=== PATIENT | female | born 1965 | race Caucasian/White ===

== ENCOUNTER → 2019-12-17 10:23 | Outpatient (BNV) | payer OTHER, SELFPAY | PROVIDERS: Visit Provider Internal Medicine Medical Oncology | DX: C34.92 Malignant neoplasm of unspecified part of left bronchus or lung (principal); R73.9 Hyperglycemia, unspecified | CPT/HCPCS: 99212; 99213; 99214 ==

== ENCOUNTER 2019-12-17 16:17 | Emergency (ER) | payer OTHER, SELFPAY ==
--- NOTE | 2019-12-17 | CT_ITS ---
EXAMINATION: CT HEAD WITHOUT CONTRAST CLINICAL INFORMATION: Headache. COMPARISON: CT head from 10/30/2019. TECHNIQUE: Contiguous axial imaging was performed from the skull base to vertex without intravenous administration of contrast. This CT examination was performed using dose optimization techniques as appropriate, variously including the following: *Automated exposure control. *Adjustment of mA and/or kV according to patient size (this includes techniques or standardized protocols for targeted exams where dose is matched to indication/reason for exam; i.e. extremities or head). *Use of iterative reconstruction technique. DLP: 610 mGy-cm FINDINGS: There is no evidence of acute intracranial hemorrhage or edematous territorial infarction. There is no abnormal attenuation within the brain parenchyma. Byers-white matter differentiation is preserved. The ventricles are normal in size and configuration. No evidence for obstructive hydrocephalus. No abnormal mass effect or midline shift. No extra-axial fluid collections. No acute soft tissue or osseous abnormalities. Mild mucosal thickening of the paranasal sinuses. The mastoid air cells and middle ear cavities remain well aerated. IMPRESSION: No evidence of acute intracranial hemorrhage or edematous territorial infarction.
[2019-12-17 16:25] VITALS: BP 111/66; PULSE 78; RESP 18; TEMP 37.1; O2SAT 98; BMI 23.9
[2019-12-17 16:35] LABS: Glucose, Whole Blood 343 mg/dL (60-115)
--- NOTE | 2019-12-17 17:48 | ED_ITS ---
HPI - General Adult General Chief complaint: General Medical Stated complaint: High blood sugar,headache Time Seen by Provider: 12/17/19 17:28 Source: patient Mode of arrival: ambulatory History of Present Illness HPI narrative: patient was at oncologist's office in which was getting chemotherapy noted to have high blood sugar. At that point she did see a specialist and the specialist stated it was in regards to her medication. Sent into the emergency department secondary to blood sugar greater than 500 and generalized body aches which includes headache. No recent illness or fevers. No nausea no vomiting. No abdominal pain no chest pain MD complaint: high blood sugar Onset (ago): day(s) Exacerbating factors: none Related Data Home Medications Medication Instructions Recorded Confirmed alprazolam 1 mg PO BID 12/17/19 12/17/19 bupropion HCl 300 mg PO DAILY 12/17/19 12/17/19 clonidine HCl 0.1 mg PO BEDTIME 12/17/19 12/17/19 hydroxyzine pamoate 50 mg PO Q8H PRN 12/17/19 12/17/19 levetiracetam 500 mg PO BID 12/17/19 12/17/19 meclizine 25 mg PO Q8H PRN 12/17/19 12/17/19 mesalamine 800 mg PO TID 12/17/19 12/17/19 omeprazole 20 mg PO BID 12/17/19 12/17/19 ondansetron HCl 8 mg PO Q8H PRN 12/17/19 12/17/19 polyethylene glycol 3350 17 g PO DAILY 12/17/19 12/17/19 prednisone 10 mg PO DAILY 12/17/19 12/17/19 scopolamine base [Transderm-Scop] 1 mg TRANSDERMAL Q3D 12/17/19 12/17/19 sucralfate 1 g PO QID 12/17/19 12/17/19 venlafaxine 150 mg PO DAILY 12/17/19 12/17/19 zolpidem 10 mg PO BEDTIME 12/17/19 12/17/19 Allergies Allergy/AdvReac Type Severity Reaction Status Date / Time acetaminophen [Tylenol] AdvReac Unknown Abdominal Verified 12/17/19 13:11 Pain ibuprofen AdvReac Unknown Abdominal Verified 12/17/19 13:11 Pain senna AdvReac Unknown Headache Verified 12/05/18 00:00 Review of Systems Constitutional: Comments: Constitutional : No Weight loss, No Fever, No Chills, No Night Sweats, No Fatigue, No Malaise ENT/Mouth : No Hearing loss, No Ear Pain, No Nasal Congestion, No Sinus Pain, No Hoarseness, No sore throat, No Rhinorrhea, No Swallowing Difficulty Eyes: No Eye Pain, No Swelling, No Redness, No Foreign Body, No Discharge, No Vision Changes Cardiovascular : No Chest Pain, No SOB, No Dyspnea on Exertion, No Orthopnea, No Edema, No Palpitations Respiratory : No Cough, No Sputum, No Wheezing, No Smoke Exposure, No Dyspnea Gastrointestinal : No Nausea, No Vomiting, No Diarrhea, No Constipation, No abdominal Pain, No Hematochezia, No Melena Genitourinary : no irregular bleeding, No Dysuria, No Urinary Frequency, No Hematuria, No Urinary Incontinence, No Urgency, No Flank Pain, No Urinary Flow Changes, No Hesitancy Musculoskeletal : No joint pain, general Myalgias, No Joint Swelling Skin : No Skin Lesions, No rash Neuro : No Weakness, No Numbness, No Paresthesias, No Loss of Consciousness, No Dizziness, No Headache Psych : No Anxiety/Panic, No Depression, No SI/HI/AH/VH, No Social Issues, Heme/Lymph: No Bruising, No Bleeding,No Lymphadenopathy Endocrine : No Polyuria, No Polydipsia, No Temperature Intolerance [facility], [facility] Past Medical History Attestation statement: The following information was validated with the patient. Medical History Aftercare following left shoulder joint replacement surgery Asthma COPD (chronic obstructive pulmonary disease) Depression Hypothyroidism Lung cancer Opioid abuse Surgical History History of Status post cholecystectomy Social History Social History Alcohol intake: never Smoked in Last 30 Days: No Use of substances other than those prescribed or required for medical reasons: No Advance Directives: No Advance Directives Information Provided: Yes Physical Exam Vital Signs and I&O and Narrative: Vital Signs and I&O: Vital Signs Temp 98.7 F 12/17/19 16:25 Pulse 78 12/17/19 16:25 Resp 18 12/17/19 16:25 BP 111/66 12/17/19 16:25 Pulse Ox 98 12/17/19 16:25 Intake & Output 12/16/19 12/17/19 12/17/19 18:59 06:59 18:59 Weight 61.235 kg Body Mass Index 23.9 vital signs reviewed pulse ox 98% on room air interpreted by me Const: Other: Appearance: Alert. Oriented X3. No acute distress. Eyes: Pupils equal, round and reactive to light. ENT: Pharynx normal. Neck: Normal inspection. Neck supple. No lymph nodes noted. No crepitus CVS: Normal heart rate and rhythm. Pulses normal. Normal S1 and S2 Respiratory: No respiratory distress. Breath sounds normal. No Wheezing. No rales Abdomen: Soft and nontender. No rigidity. No distention. good BS x4 Skin: Skin warm and dry. Normal skin color. Normal skin turgor. Extremities: No lower extremity edema. No lower extremity edema. No Lacerations. No Rash IV placed in left hand Neuro: Oriented X 3. No motor deficit. No sensory deficit. Moving all extermities. No slurred speech. Medical Decision Making Differential Diagnosis Differential Diagnosis: differential diagnosis includes DKA urinary tract infection electrolyte im Lab Data Labs: Lab Results 12/17/19 Range/Units 16:27 POC Glucose 343 H (60-115) mg/dL Discharge Plan Discharge Prescriptions: No Action clonidine HCl 0.1 mg tablet 0.1 mg PO BEDTIME RF: 0 alprazolam 1 mg tablet 1 mg PO BID RF: 0 hydroxyzine pamoate 50 mg capsule 50 mg PO Q8H PRN (Reason: Anxiety) RF: 0 bupropion HCl 300 mg tablet extended release 24 hr 300 mg PO DAILY RF: 0 prednisone 10 mg tablet 10 mg PO DAILY RF: 0 polyethylene glycol 3350 17 gram powder in packet 17 g PO DAILY RF: 0 levetiracetam 500 mg tablet 500 mg PO BID RF: 0 ondansetron HCl 8 mg tablet 8 mg PO Q8H PRN (Reason: Nausea) RF: 0 sucralfate 1 gram tablet 1 g PO QID RF: 0 venlafaxine 150 mg capsule,extended release 24hr 150 mg PO DAILY RF: 0 meclizine 25 mg tablet 25 mg PO Q8H PRN (Reason: Dizziness) RF: 0 omeprazole 20 mg capsule,delayed release(DR/EC) 20 mg PO BID RF: 0 zolpidem 10 mg tablet 10 mg PO BEDTIME RF: 0 scopolamine base [Transderm-Scop] 1 mg over 3 days patch 3 day 1 mg transdermal Q3D RF: 0 mesalamine 800 mg tablet,delayed release (DR/EC) 800 mg PO TID RF: 0
[2019-12-17] MEDS: 0.9 % Sodium Chloride 1,000 ML 999 ML IVCONT ×2 (17:57→20:08)
[2019-12-17] MEDS: Insulin Regular, Human 100 UNIT/ML 3 ML VIAL SUBCUT (17:57)
[2019-12-17] MEDS: ondansetron HCL 4 MG/2 ML VIAL IVPUSH (17:57)
[2019-12-17] MEDS: HYDROmorphone HCl 1 MG/ML SYRINGE IVPUSH (17:57)
[2019-12-17 18:00] VITALS: BP 126/78; PULSE 79; RESP 18; TEMP 36.5; O2SAT 100
--- NOTE | 2019-12-17 18:03 | PC.NURSE ---
PATENT IV FROM ONCOLOGY. 24G L OUTER WRIST
[2019-12-17 18:06] LABS: Glucose, Whole Blood 338 mg/dL (60-115)
[2019-12-17 18:06] LABS: MANUAL DIFF FLAG NO
[2019-12-17 18:17] LABS: Basophils Absolute Auto 0.1 X10*3/uL (0.0-0.2); Basophils Percent Auto 1.1 % (0-2); Eosinophils Absolute Auto 0.4 X10*3/uL (0.0-0.4); Eosinophils Percent Auto 4.8 % (0-4); Hematocrit 32.9 % (37-47); Hemoglobin 10.9 g/dl (12.0-16.0); Imm Gran Abs Auto 0.01 X10*3/uL (0.00-0.03); Imm Gran Pct Auto 0.1 % (0.0-0.4); Lymphocytes Absolute Auto 2.8 X10*3/uL (1.2-4.9); Lymphocytes Percent Auto 38.2 % (20-40); Mean Corpuscular HGB Conc 33.1 g/dl (31.0-35.0); Mean Corpuscular Hemoglobin 28.7 pg (27.0-33.0); Mean Corpuscular Volume 86.6 fL (80-98); Mean Platelet Volume 12.5 fL (9.4-12.3); Monocytes Absolute Auto 0.4 X10*3/uL (0.1-1.2); Monocytes Percent Auto 5.9 % (2-11); Neutrophils Absolute Auto 3.6 X10*3/uL (2.0-8.3); Neutrophils Percent Auto 49.9 % (45-73); Platelet Count 151 X10*3/uL (160-400); Red Cell Distribution Width 12.2 % (11.0-16.0); White Blood Count 7.3 X10*3/uL (4.8-10.8)
[2019-12-17 19:01] LABS: Alanine Aminotransferase 24 U/L (0-31); Albumin Level 3.8 g/dL (3.5-5.0); Alkaline Phosphatase 118 U/L (39-117); Anion Gap 11 (12-20); Aspartate Amino Transferase 15 U/L (5-31); Bilirubin Direct < 0.2 mg/dL (0.0-0.5); Bilirubin Total 0.4 mg/dL (0.0-1.0); Blood Urea Nitrogen 13 mg/dL (9-16); Calcium 8.6 mg/dL (8.4-10.2); Carbon Dioxide 29 mmol/L (22-29); Chloride 100 mmol/L (96-108); Creatinine Clr Calc Pharmacy 51.6; Estimated Glomerular Filt Rate 56; Glucose Random 394 mg/dL (60-115); Sodium 136 mmol/L (135-145); Total Protein 6.4 g/dL (6.5-8.0)
[2019-12-17 19:42] LABS: Glucose Urine UA >=1000 MG/DL (NEG); Leukocyte Esterase Urine NEG (NEG); Nitrite Urine NEG (NEG); Urine Blood TRACE (NEG); Urine Ketones NEG (NEG); Urine Protein NEG (NEG-TRACE)
[2019-12-17 19:43] LABS: Appearance Urine CLEAR; Color Urine YELLOW
[2019-12-17 19:51] LABS: Bacteria Urine 1+ /LPF; RBC Urine 0-2 /HPF (0); Squamous Epithelial Cell Urine 1+ /LPF; WBC Urine 0 /HPF (0-4)
[2019-12-17] MEDS: diphenhydrAMINE HCL 50 MG/ML VIAL 25 MG IVPUSH (20:08)
[2019-12-17] MEDS: Metoclopramide HCl 10 MG/2 ML VIAL IVPUSH (20:08)
[2019-12-17 20:11] VITALS: BP 146/88; PULSE 80; RESP 16; TEMP 36.4; O2SAT 97
--- NOTE | 2019-12-17 21:11 | ED_ITS ---
HPI - General Adult General Chief complaint: General Medical Stated complaint: High blood sugar,headache Time Seen by Provider: 12/17/19 17:28 Source: patient Mode of arrival: ambulatory History of Present Illness HPI narrative: patient sent in from oncology office secondary to elevated blood sugar. patient states at the office she did see a specialist in regards to her elevated sugar and it was deemed that it was not related to diabetes however was related to her medication. Patient denied nausea vomiting diarrhea. No fevers or chills no chest pain or abdominal pain sent in for evaluation Exacerbating factors: none Related Data Home Medications Medication Instructions Recorded Confirmed alprazolam 1 mg PO BID 12/17/19 12/17/19 bupropion HCl 300 mg PO DAILY 12/17/19 12/17/19 clonidine HCl 0.1 mg PO BEDTIME 12/17/19 12/17/19 hydroxyzine pamoate 50 mg PO Q8H PRN 12/17/19 12/17/19 levetiracetam 500 mg PO BID 12/17/19 12/17/19 meclizine 25 mg PO Q8H PRN 12/17/19 12/17/19 mesalamine 800 mg PO TID 12/17/19 12/17/19 omeprazole 20 mg PO BID 12/17/19 12/17/19 ondansetron HCl 8 mg PO Q8H PRN 12/17/19 12/17/19 polyethylene glycol 3350 17 g PO DAILY 12/17/19 12/17/19 prednisone 10 mg PO DAILY 12/17/19 12/17/19 scopolamine base [Transderm-Scop] 1 mg TRANSDERMAL Q3D 12/17/19 12/17/19 sucralfate 1 g PO QID 12/17/19 12/17/19 venlafaxine 150 mg PO DAILY 12/17/19 12/17/19 zolpidem 10 mg PO BEDTIME 12/17/19 12/17/19 Allergies Allergy/AdvReac Type Severity Reaction Status Date / Time acetaminophen [Tylenol] AdvReac Unknown Abdominal Verified 12/17/19 13:11 Pain ibuprofen AdvReac Unknown Abdominal Verified 12/17/19 13:11 Pain senna AdvReac Unknown Headache Verified 12/05/18 00:00 Review of Systems Constitutional: Comments: Constitutional : No Weight loss, No Fever, No Chills, No Night Sweats, No Fatigue, No Malaise ENT/Mouth : No Hearing loss, No Ear Pain, No Nasal Congestion, No Sinus Pain, No Hoarseness, No sore throat, No Rhinorrhea, No Swallowing Difficulty Eyes: No Eye Pain, No Swelling, No Redness, No Foreign Body, No Discharge, No Vi tanner Changes Cardiovascular : No Chest Pain, No SOB, No Dyspnea on Exertion, No Orthopnea, No Edema, No Palpitations Respiratory : No Cough, No Sputum, No Wheezing, No Smoke Exposure, No Dyspnea Gastrointestinal : No Nausea, No Vomiting, No Diarrhea, No Constipation, No abdominal Pain, No Hematochezia, No Melena Genitourinary : no irregular bleeding, No Dysuria, No Urinary Frequency, No Hematuria, No Urinary Incontinence, No Urgency, No Flank Pain, No Urinary Flow Changes, No Hesitancy Musculoskeletal : No joint pain, No Myalgias, No Joint Swelling Skin : No Skin Lesions, No rash Neuro : No Weakness, No Numbness, No Paresthesias, No Loss of Consciousness, No Dizziness, No Headache Psych : No Anxiety/Panic, No Depression, No SI/HI/AH/VH, No Social Issues, Heme/Lymph: No Bruising, No Bleeding,No Lymphadenopathy Endocrine : No Polyuria, No Polydipsia, No Temperature Intolerance [facility] Past Medical History Medical History Aftercare following left shoulder joint replacement surgery Asthma COPD (chronic obstructive pulmonary disease) Depression Hypothyroidism Lung cancer Opioid abuse Surgical History History of Status post cholecystectomy Social History Social History Alcohol intake: never Smoked in Last 30 Days: No Use of substances other than those prescribed or required for medical reasons: No Advance Directives: No Advance Directives Information Provided: Yes Physical Exam Vital Signs and I&O and Narrative: Vital Signs and I&O: Vital Signs Temp 97.6 F 12/17/19 20:11 Pulse 80 12/17/19 20:11 Resp 16 12/17/19 20:11 BP 146/88 H 12/17/19 20:11 Pulse Ox 97 12/17/19 20:11 Intake & Output 12/17/19 12/17/19 12/18/19 06:59 18:59 06:59 Intake Total 1999 Balance 1999 Weight 61.235 kg Intake: Intake, IV Amoun t 1999 0.9 % Sodium C hloride 1,000 ml 1999 @ 999 mls/hr I VCONT .Q1H1M SHABANA Rx#:[id number] Body Mass Index 23.9 vital signs reviewed pulse ox 97% room air interpreted by me normal Const: Other: Appearance: Alert. Oriented X3. No acute distress. Eyes: Pupils equal, round and reactive to light. ENT: Pharynx normal. Neck: Normal inspection. Neck supple. No lymph nodes noted. No crepitus CVS: Normal heart rate and rhythm. Pulses normal. Normal S1 and S2 Respiratory: No respiratory distress. Breath sounds normal. No Wheezing. No rales Abdomen: Soft and nontender. No rigidity. No distention. good BS x4 Skin: Skin warm and dry. Normal skin color. Normal skin turgor. Extremities: No lower extremity edema. No lower extremity edema. No Lacerations. No Rash Neuro: Oriented X 3. No motor deficit. No sensory deficit. Moving all extermities. No slurred speech. Course Course Course Narrative: throughout course in re-evaluations in the ER patient complained of a mild headache does which she had worse however she states that this headache has been the past couple of weeks and has not had 1 before in the past will get a CT scan to rule out bleed or mass CT scan of the brain negative however with history and mildness not a thunderclap headache I doubt is a bleed no mass noted patient's blood sugar started trending down did receive some insulin IV fluids however will need to follow-up with her oncologist regarding medication side effect patient tolerating p.o. intake. No signs of DKA or signs of infection Medical Decision Making MDM Narrative Medical decision making narrative: 54-year-old female diagnosed with hyperglycemia due to adverse reaction from medication Lab Data Result diagrams: 12/17/19 18:00 12/17/19 18:00 Labs: Lab Results 12/17/19 12/17/19 12/17/19 Range/Units 16:27 17:53 18:00 WBC 7.3 (4.8-10.8) X10*3/uL RBC 3.80 L (4.20-5.50) X10*6/uL Hgb 10.9 L (12.0-16.0) g/dl Hct 32.9 L (37-47) % MCV 86.6 (80-98) fL MCH 28.7 (27.0-33.0) pg MCHC 33.1 (31.0-35.0) g/dl RDW 12.2 (11.0-16.0) % Plt Count 151 L (160-400) X10*3/uL MPV 12.5 H (9.4-12.3) fL Immature Gran % (Auto) 0.1 (0.0-0.4) % Neut % (Auto) 49.9 (45-73) % Lymph % (Auto) 38.2 (20-40) % Stephenson % (Auto) 5.9 (2-11) % Eos % (Auto) 4.8 H (0-4) % Baso % (Auto) 1.1 (0-2) % Lymph # (Auto) 2.8 (1.2-4.9) X10*3/uL Stephenson # (Auto) 0.4 (0.1-1.2) X10*3/uL Eos # (Auto) 0.4 (0.0-0.4) X10*3/uL Baso # (Auto) 0.1 (0.0-0.2) X10*3/uL Abs Immat Gran (auto) 0.01 (0.00-0.03) X10*3/uL Absolute Neuts (auto) 3.6 (2.0-8.3) X10*3/uL Absolute Nucleated RBC 0.000 (0.0-0.012) X10*3/uL Nucleated RBC % (auto) 0.0 (0.0-0.2) /100WBC Sodium (135-145) mmol/L Potassium (3.3-5.1) mmol/l Chloride (96-108) mmol/L Carbon Dioxide (22-29) mmol/L Anion Gap (12-20) BUN (9-16) mg/dL Creatinine (0.5-1.4) mg/dL Estim Creat Clear Calc Estimated GFR POC Glucose 343 H 338 H (60-115) mg/dL Random Glucose (60-115) mg/dL Calcium (8.4-10.2) mg/dL Total Bilirubin (0.0-1.0) mg/dL Direct Bilirubin (0.0-0.5) mg/dL AST (5-31) U/L ALT (0-31) U/L Alkaline Phosphatase (39-117) U/L Total Protein (6.5-8.0) g/dL Albumin (3.5-5.0) g/dL Urine Color Urine Appearance Urine pH (5.0-8.0) Ur Specific [place] (1.005-1.025) Urine Protein (NEG-TRACE) MG/DL Urine Glucose (UA) (NEG) MG/DL Urine Ketones (NEG) MG/DL Urine Blood (NEG) Urine Nitrite (NEG) Ur Leukocyte Esterase (NEG) Urine RBC (0) /HPF Urine WBC (0-4) /HPF Ur Squamous Epith Cells /LPF Urine Bacteria /LPF 12/17/19 12/17/19 Range/Units 18:00 19:16 WBC (4.8-10.8) X10*3/uL RBC (4.20-5.50) X10*6/uL Hgb (12.0-16.0) g/dl Hct (37-47) % MCV (80-98) fL MCH (27.0-33.0) pg MCHC (31.0-35.0) g/dl RDW (11.0-16.0) % Plt Count (160-400) X10*3/uL MPV (9.4-12.3) fL Immature Gran % (Auto) (0.0-0.4) % Neut % (Auto) (45-73) % Lymph % (Auto) (20-40) % Stephenson % (Auto) (2-11) % Eos % (Auto) (0-4) % Baso % (Auto) (0-2) % Lymph # (Auto) (1.2-4.9) X10*3/uL Stephenson # (Auto) (0.1-1.2) X10*3/uL Eos # (Auto) (0.0-0.4) X10*3/uL Baso # (Auto) (0.0-0.2) X10*3/uL Abs Immat Gran (auto) (0.00-0.03) X10*3/uL Absolute Neuts (auto) (2.0-8.3) X10*3/uL Absolute Nucleated RBC (0.0-0.012) X10*3/uL Nucleated RBC % (auto) (0.0-0.2) /100WBC Sodium 136 (135-145) mmol/L Potassium 4.0 (3.3-5.1) mmol/l Chloride 100 (96-108) mmol/L Carbon Dioxide 29 (22-29) mmol/L Anion Gap 11 L (12-20) BUN 13 (9-16) mg/dL Creatinine 1.03 (0.5-1.4) mg/dL Estim Creat Clear Calc 51.6 Estimated GFR 56 POC Glucose (60-115) mg/dL Random Glucose 394 H* (60-115) mg/dL Calcium 8.6 (8.4-10.2) mg/dL Total Bilirubin 0.4 (0.0-1.0) mg/dL Direct Bilirubin < 0.2 (0.0-0.5) mg/dL AST 15 (5-31) U/L ALT 24 (0-31) U/L Alkaline Phosphatase 118 H (39-117) U/L Total Protein 6.4 L (6.5-8.0) g/dL Albumin 3.8 (3.5-5.0) g/dL Urine Color YELLOW Urine Appearance CLEAR Urine pH 6.0 (5.0-8.0) Ur Specific [place] 1.020 (1.005-1.025) Urine Protein NEG (NEG-TRACE) MG/DL Urine Glucose (UA) >=1000 H (NEG) MG/DL Urine Ketones NEG (NEG) MG/DL Urine Blood TRACE (NEG) Urine Nitrite NEG (NEG) Ur Leukocyte Esterase NEG (NEG) Urine RBC 0-2 (0) /HPF Urine WBC 0 (0-4) /HPF Ur Squamous Epith Cells 1+ /LPF Urine Bacteria 1+ /LPF Discharge Plan Discharge Clinical Impression: Acute hyperglycemia Adverse drug interaction Qualifiers: Encounter type: initial encounter Qualified Code(s): T50.905A - Adverse effect of unspecified drugs, medicaments and biological substances, initial encounter Patient Disposition: Home, Self-Care Prescriptions: No Action clonidine HCl 0.1 mg tablet 0.1 mg PO BEDTIME RF: 0 alprazolam 1 mg tablet 1 mg PO BID RF: 0 hydroxyzine pamoate 50 mg capsule 50 mg PO Q8H PRN (Reason: Anxiety) RF: 0 bupropion HCl 300 mg tablet extended release 24 hr 300 mg PO DAILY RF: 0 prednisone 10 mg tablet 10 mg PO DAILY RF: 0 polyethylene glycol 3350 17 gram powder in packet 17 g PO DAILY RF: 0 levetiracetam 500 mg tablet 500 mg PO BID RF: 0 ondansetron HCl 8 mg tablet 8 mg PO Q8H PRN (Reason: Nausea) RF: 0 sucralfate 1 gram tablet 1 g PO QID RF: 0 venlafaxine 150 mg capsule,extended release 24hr 150 mg PO DAILY RF: 0 meclizine 25 mg tablet 25 mg PO Q8H PRN (Reason: Dizziness) RF: 0 omeprazole 20 mg capsule,delayed release(DR/EC) 20 mg PO BID RF: 0 zolpidem 10 mg tablet 10 mg PO BEDTIME RF: 0 scopolamine base [Transderm-Scop] 1 mg over 3 days patch 3 day 1 mg transdermal Q3D RF: 0 mesalamine 800 mg tablet,delayed release (DR/EC) 800 mg PO TID RF: 0 Referrals: Alyson Garcia MD [Physician] - 2 days
[2019-12-17 21:16] LABS: Glucose, Whole Blood 251 mg/dL (60-115)
[2019-12-17 21:34] VITALS: BP 143/92; PULSE 82; RESP 16; TEMP 36.5; O2SAT 97
== END 2019-12-17 21:36 | disposition home or self-care (01) ==
PROVIDERS: Emergency Provider Emergency Medicine
DX: R73.9 Hyperglycemia, unspecified (principal); T50.905A Adverse effect of unspecified drugs, medicaments and biological substances, initial encounter; Y92.019 Unspecified place in single-family (private) house as the place of occurrence of the external cause; E11.9 Type 2 diabetes mellitus without complications; F11.10 Opioid abuse, uncomplicated; Z85.118 Personal history of other malignant neoplasm of bronchus and lung
CPT/HCPCS: 36415; 70450; 80048; 80076; 81001; 82947; 85025; 96361; 96374; 96375; 99284; J1170; J1200; J2405; J2765

== ENCOUNTER → 2019-12-18 13:28 | Outpatient (BNVA) | payer OTHER, SELFPAY | PROVIDERS: Visit Provider Internal Medicine Endocrinology, Diabetes & Metabolism | DX: E11.9 Type 2 diabetes mellitus without complications (principal); E27.3 Drug-induced adrenocortical insufficiency; E04.2 Nontoxic multinodular goiter; E05.80 Other thyrotoxicosis without thyrotoxic crisis or storm; Z79.52 Long term (current) use of systemic steroids | CPT/HCPCS: 82947; 99214 ==

== ENCOUNTER 2019-12-22 16:13 | Observation (INO) | payer OTHER, SELFPAY ==
--- NOTE | 2019-12-22 16:45 | XR_ITS ---
EXAMINATION: XR CHEST CLINICAL INFORMATION: Cough and fever COMPARISON: Chest radiograph from 09/29/2019 TECHNIQUE: Frontal view of the chest was obtained. FINDINGS: Lungs are well expanded. In this patient with history of lung cancer, the opacity in the medial right suprahilar region observed on prior chest CT exams is not well seen radiographically. No acute pulmonary abnormality. No consolidation, edema or pleural effusion. Cardiac silhouette is normal in size. The visualized bones, and upper abdomen, are unremarkable. IMPRESSION: No acute findings. No evidence of pneumonia.
--- NOTE | 2019-12-22 16:47 | ECG_ITS ---
Test Reason : ABNORMAL LABS Blood Pressure : / mmHG Vent. Rate : 073 BPM Atrial Rate : 073 BPM P-R Int : 196 ms QRS Dur : 080 ms QT Int : 410 ms P-R-T Axes : 063 046 049 degrees QTc Int : 451 ms Normal sinus rhythm Possible Left atrial enlargement Borderline ECG When compared with ECG of 15-OCT-2019 22:51, Heart rate has increased Referred By: Mike Quintana Electronically Signed By:JACOBY BLACKWOOD MD
[2019-12-22 16:55] VITALS: BP 100/77; BP 80/49; PULSE 70; PULSE 74; RESP 18; TEMP 36.4; O2SAT 95; O2SAT 96; BMI 23.0
[2019-12-22 16:56] LABS: Glucose, Whole Blood 172 mg/dL (60-115)
[2019-12-22 17:30] LABS: MANUAL DIFF FLAG NO
[2019-12-22 17:34] LABS: Basophils Absolute Auto 0.1 X10*3/uL (0.0-0.2); Basophils Percent Auto 0.4 % (0-2); Eosinophils Absolute Auto 0.2 X10*3/uL (0.0-0.4); Eosinophils Percent Auto 1.5 % (0-4); Hematocrit 34.2 % (37-47); Hemoglobin 11.1 g/dl (12.0-16.0); Imm Gran Abs Auto 0.04 X10*3/uL (0.00-0.03); Imm Gran Pct Auto 0.3 % (0.0-0.4); Lymphocytes Absolute Auto 2.9 X10*3/uL (1.2-4.9); Lymphocytes Percent Auto 21.9 % (20-40); Mean Corpuscular HGB Conc 32.5 g/dl (31.0-35.0); Mean Corpuscular Hemoglobin 28.8 pg (27.0-33.0); Mean Corpuscular Volume 88.8 fL (80-98); Mean Platelet Volume 12.2 fL (9.4-12.3); Monocytes Absolute Auto 0.9 X10*3/uL (0.1-1.2); Monocytes Percent Auto 6.9 % (2-11); Neutrophils Absolute Auto 9.3 X10*3/uL (2.0-8.3); Platelet Count 189 X10*3/uL (160-400); Red Blood Count 3.85 X10*6/uL (4.20-5.50); Red Cell Distribution Width 12.5 % (11.0-16.0); White Blood Count 13.4 X10*3/uL (4.8-10.8)
[2019-12-22 17:41] LABS: Partial Thromboplastin Time 28.2 SEC (24.1-38.0)
[2019-12-22] MEDS: 0.9 % Sodium Chloride 1,000 ML 999 ML IVCONT (17:45)
[2019-12-22] MEDS: HYDROmorphone HCl 1 MG/ML SYRINGE IVPUSH (17:45)
[2019-12-22 18:03] LABS: Lactic Acid 1.5 mmol/L (0.5-2.0)
[2019-12-22 18:07] LABS: Alanine Aminotransferase 24 U/L (0-31); Albumin Level 3.9 g/dL (3.5-5.0); Alkaline Phosphatase 105 U/L (39-117); Anion Gap 10 (12-20); Aspartate Amino Transferase 17 U/L (5-31); Bilirubin Direct 0.3 mg/dL (0.0-0.5); Bilirubin Total 0.7 mg/dL (0.0-1.0); Blood Urea Nitrogen 13 mg/dL (9-16); Calcium 8.5 mg/dL (8.4-10.2); Carbon Dioxide 29 mmol/L (22-29); Chloride 101 mmol/L (96-108); Estimated Glomerular Filt Rate > 60; Glucose Random 175 mg/dL (60-115); Potassium 3.1 mmol/l (3.3-5.1); Sodium 137 mmol/L (135-145); Total Protein 6.3 g/dL (6.5-8.0)
[2019-12-22 18:11] LABS: Troponin-I High Sensitivity < 3.5 ng/L (<3.5-17.0)
[2019-12-22 18:21] LABS: Acetone, serum QL Negative (Negative)
[2019-12-22 18:29] LABS: Thyroid Stimulating Hormone 0.21 mIU/mL (0.32-4.0)
[2019-12-22 19:46] LABS: Glucose Urine UA 250 MG/DL (NEG); Leukocyte Esterase Urine 2+ (NEG); Nitrite Urine POS (NEG); Specific Gravity - Urine <= 1.005 (1.005-1.025); Urine Blood 1+ (NEG); Urine Ketones NEG (NEG); Urine Protein 2+ MG/DL (NEG-TRACE)
[2019-12-22 19:46] LABS: Influenza A PCR NEGATIVE (Negative); Influenza B PCR NEGATIVE (Negative)
--- NOTE | 2019-12-22 19:58 | ED_ITS ---
HPI - General Adult General Chief complaint: Recheck/Abnormal Lab/Rx Stated complaint: headache Time Seen by Provider: 12/22/19 16:45 Source: EMS Mode of arrival: EMS Limitations: no limitations History of Present Illness HPI narrative: This is a pleasant 54-year-old female with history of lung cancer on chemo and radiation with induced esophagitis, fibromyalgia, seizure disorder, anxiety disorder, depression and surgical history of C- section, cholecystectomy, hysterectomy, back surgery, shoulder surgery, EGDs who reports to me she was recently diagnosed with diabetes little over week ago has had body aches and chills for the same duration of time and for the past 1 day she has had some dysuria. Yesterday she had T-max of 102 degrees. Onset (ago): day(s) Radiation: non-radiation Severity: moderate Quality: aching Relieving factors: none Exacerbating factors: none Treatments prior to arrival: none Related Data Home Medications Medication Instructions Recorded Confirmed alprazolam 1 mg PO BID 12/17/19 12/18/19 bupropion HCl 300 mg PO DAILY 12/17/19 12/18/19 clonidine HCl 0.1 mg PO BEDTIME 12/17/19 12/18/19 hydroxyzine pamoate 50 mg PO Q8H PRN 12/17/19 12/18/19 levetiracetam 500 mg PO BID 12/17/19 12/18/19 meclizine 25 mg PO Q8H PRN 12/17/19 12/18/19 mesalamine 800 mg PO TID 12/17/19 12/18/19 omeprazole 20 mg PO BID 12/17/19 12/18/19 ondansetron HCl 8 mg PO Q8H PRN 12/17/19 12/18/19 polyethylene glycol 3350 17 g PO DAILY 12/17/19 12/18/19 scopolamine base [Transderm-Scop] 1 mg TRANSDERMAL Q3D 12/17/19 12/18/19 sucralfate 1 g PO QID 12/17/19 12/18/19 venlafaxine 150 mg PO DAILY 12/17/19 12/18/19 zolpidem 10 mg PO BEDTIME 12/17/19 12/18/19 Previous Rx's Medication Instructions Recorded alcohol swabs 1 pad TOPICAL .COMPLEX 30 Days 10/09/20 #200 ea blood sugar diagnostic #150 ea 12/18/19 insulin aspart 5 unit SUBCUT TID 30 Days #15 ml 12/18/19 (niacinamide)(U-100) 100 unit/mL(3 mL) subcutaneous pen insulin degludec 200 unit/mL (3 20 unit SUBCUT DAILY 30 Days #3 ml 12/18/19 mL) subcutaneous pen lancets 33 gauge #150 ea 12/18/19 pen needle, diabetic 32 gauge x #400 ea 12/18/19 prednisone 10 mg tablet 10 mg PO DAILY 30 Days #30 tab 12/18/19 prednisone 20 mg tablet 20 mg PO DAILY 30 Days #30 tab 12/18/19 Allergies Allergy/AdvReac Type Severity Reaction Status Date / Time acetaminophen [Tylenol] AdvReac Unknown Abdominal Verified 12/17/19 13:11 Pain ibuprofen AdvReac Unknown Abdominal Verified 12/17/19 13:11 Pain senna AdvReac Unknown Headache Verified 12/05/18 00:00 Review of Systems Review of Systems: Yes all other systems are reviewed and are negative [facility] Past Medical History Medical History (Updated 12/22/19 @ 21:27 by Mike Quintana NP) Adrenal insufficiency Adrenal insufficiency due to cancer therapy Aftercare following left shoulder joint replacement surgery Asthma COPD (chronic obstructive pulmonary disease) Depression Hypothyroidism Multinodular goiter Newly diagnosed diabetes Non-small cell carcinoma of left lung, stage 4 Opioid abuse Pancreatitis Radiation-induced esophagitis Subclinical hyperthyroidism Surgical History History of Hx of blepharoplasty Status post cholecystectomy Family History Family History (Updated 12/18/19 @ 13:51 by Terri Allred LPN) Father Pancreatic cancer Mother Diabetes Brother Diabetes Sister Diabetes Social History Social History (Updated 12/18/19 @ 13:52 by Terri Allred LPN) Alcohol intake: never Tobacco Type: Cigarette Years Smoked: 45 Advance Directives: No Advance Directives Information Provided: No Physical Exam Vital Signs: Vital Signs: Vital Signs Temp Pulse Resp BP Pulse Ox 12/22/19 21:08 98.0 F 69 18 109/63 96 12/22/19 16:55 97.6 F 74 18 80/49 L 96 Body Mass Index 23.0 Const: General: cooperative and healthy appearing; No acute distress or intoxicated appearing Nutritional Appearance: average body habitus Orientation/consciousness: patient oriented x3 HENMT: Head: Yes normal to inspection Ears: hearing grossly normal bilaterally Eyes: General: appearance normal, both eyes and all related structures Visual Cisneros: normal visual cisneros by confrontation Neck: Neck: Yes normal visual inspection and No tender Thyroid: Thyroid normal Chest: Chest palpation & inspection: normal inspection of the chest Resp: Effort & Inspection: normal respiratory effort Cardio: Jugular venous distension: no JVD GI: Inspection: Yes normal to inspection Percussion: Yes normal to percussion Auscultation: normal bowel sounds : General: Yes no CVA tenderness Back/Spine/Pelvis: Back: no CVA tenderness Skin: General skin exam: no rashes or lesions noted Neuro: General: patient oriented x3 Extrem: General: Yes normal to inspection Course Course Course Narrative: UA overly infected periods with leukocytosis. Afebrile and nontoxic here. Given dose of ceftriaxone. Did have low blood pressure documented this is likely positional and when she is laying supine her blood pr essures is in the 110's over 60s which is her baseline. Given her waxing waning symptoms and her T-max at home and currently on chemo case discussed with hospitalist for admission. Medical Decision Making Lab Data Result diagrams: 12/22/19 17:23 12/22/19 17:23 Labs: Lab Results 12/22/19 12/22/19 12/22/19 Range/Units 01:18 16:48 17:23 WBC 13.4 H (4.8-10.8) X10*3/uL RBC 3.85 L (4.20-5.50) X10*6/uL Hgb 11.1 L (12.0-16.0) g/dl Hct 34.2 L (37-47) % MCV 88.8 (80-98) fL MCH 28.8 (27.0-33.0) pg MCHC 32.5 (31.0-35.0) g/dl RDW 12.5 (11.0-16.0) % Plt Count 189 D (160-400) X10*3/uL MPV 12.2 (9.4-12.3) fL Immature Gran % (Auto) 0.3 (0.0-0.4) % Neut % (Auto) 69.0 (45-73) % Lymph % (Auto) 21.9 (20-40) % [place] % (Auto) 6.9 (2-11) % Eos % (Auto) 1.5 (0-4) % Baso % (Auto) 0.4 (0-2) % Lymph # (Auto) 2.9 (1.2-4.9) X10*3/uL [place] # (Auto) 0.9 (0.1-1.2) X10*3/uL Eos # (Auto) 0.2 (0.0-0.4) X10*3/uL Baso # (Auto) 0.1 (0.0-0.2) X10*3/uL Abs Immat Gran (auto) 0.04 H (0.00-0.03) X10*3/uL Absolute Neuts (auto) 9.3 H (2.0-8.3) X10*3/uL Absolute Nucleated RBC 0.000 (0.0-0.012) X10*3/uL Nucleated RBC % (auto) 0.0 (0.0-0.2) /100WBC APTT (24.1-38.0) SEC Sodium (135-145) mmol/L Potassium (3.3-5.1) mmol/l Chloride (96-108) mmol/L Carbon Dioxide (22-29) mmol/L Anion Gap (12-20) BUN (9-16) mg/dL Creatinine (0.5-1.4) mg/dL Estim Creat Clear Calc Estimated GFR POC Glucose 172 H (60-115) mg/dL Random Glucose (60-115) mg/dL Lactic Acid (0.5-2.0) mmol/L Calcium (8.4-10.2) mg/dL Total Bilirubin (0.0-1.0) mg/dL Direct Bilirubin (0.0-0.5) mg/dL AST (5-31) U/L ALT (0-31) U/L Alkaline Phosphatase (39-117) U/L Troponin I High Sens (<3.5-17.0) ng/L Total Protein (6.5-8.0) g/dL Albumin (3.5-5.0) g/dL TSH (0.32-4.0) mIU/mL Urine Color ORANGE Urine Appearance CLOUDY Urine pH 5.0 (5.0-8.0) Ur Specific [place]ote <= 1.005 (1.005-1.025) Urine Protein 2+ H (NEG-TRACE) MG/DL Urine Glucose (UA) 250 H (NEG) MG/DL Urine Ketones NEG (NEG) MG/DL Urine Blood 1+ H (NEG) Urine Nitrite POS H (NEG) Ur Leukocyte Esterase 2+ H (NEG) Urine RBC 10-14 H (0) /HPF Urine WBC 30-49 H (0-4) /HPF Ur Squamous Epith Cells 1+ /LPF Urine Bacteria 3+ /LPF Urine Opiates Screen (Not Detect) Ur Barbiturates Screen (Not Detect) Ur Phencyclidine Scrn (Not Detect) Ur Amphetamines Screen (Not Detect) U Benzodiazepines Scrn (Not Detect) Urine Cocaine Screen (Not Detect) U Marijuana (THC) Screen (Not Detect) Acetone, Qual (Negative) Coronavirus (PCR) (Negative) Influenza Type A (PCR) (Negative) Influenza Type B (PCR) (Negative) Influenza A & B Note RSV RNA Qual (PCR) (Negative) 12/22/19 12/22/19 12/22/19 Range/Units 17:23 17:23 17:23 WBC (4.8-10.8) X10*3/uL RBC (4.20-5.50) X10*6/uL Hgb (12.0-16.0) g/dl Hct (37-47) % MCV (80-98) fL MCH (27.0-33.0) pg MCHC (31.0-35.0) g/dl RDW (11.0-16.0) % Plt Count (160-400) X10*3/uL MPV (9.4-12.3) fL Immature Gran % (Auto) (0.0-0.4) % Neut % (Auto) (45-73) % Lymph % (Auto) (20-40) % [place] % (Auto) (2-11) % Eos % (Auto) (0-4) % Baso % (Auto) (0-2) % Lymph # (Auto) (1.2-4.9) X10*3/uL [place] # (Auto) (0.1-1.2) X10*3/uL Eos # (Auto) (0.0-0.4) X10*3/uL Baso # (Auto) (0.0-0.2) X10*3/uL Abs Immat Gran (auto) (0.00-0.03) X10*3/uL Absolute Neuts (auto) (2.0-8.3) X10*3/uL Absolute Nucleated RBC (0.0-0.012) X10*3/uL Nucleated RBC % (auto) (0.0-0.2) /100WBC APTT 28.2 (24.1-38.0) SEC Sodium 137 (135-145) mmol/L Potassium 3.1 L D (3.3-5.1) mmol/l Chloride 101 (96-108) mmol/L Carbon Dioxide 29 (22-29) mmol/L Anion Gap 10 L (12-20) BUN 13 (9-16) mg/dL Creatinine 0.76 (0.5-1.4) mg/dL Estim Creat Clear Calc 70.0 Estimated GFR > 60 POC Glucose (60-115) mg/dL Random Glucose 175 H D (60-115) mg/dL Lactic Acid 1.5 (0.5-2.0) mmol/L Calcium 8.5 (8.4-10.2) mg/dL Total Bilirubin 0.7 (0.0-1.0) mg/dL Direct Bilirubin 0.3 (0.0-0.5) mg/dL AST 17 (5-31) U/L ALT 24 (0-31) U/L Alkaline Phosphatase 105 (39-117) U/L Troponin I High Sens (<3.5-17.0) ng/L Total Protein 6.3 L (6.5-8.0) g/dL Albumin 3.9 (3.5-5.0) g/dL TSH 0.21 L (0.32-4.0) mIU/mL Urine Color Urine Appearance Urine pH (5.0-8.0) Ur Specific [place] (1.005-1.025) Urine Protein (NEG-TRACE) MG/DL Urine Glucose (UA) (NEG) MG/DL Urine Ketones (NEG) MG/DL Urine Blood (NEG) Urine Nitrite (NEG) Ur Leukocyte Esterase (NEG) Urine RBC (0) /HPF Urine WBC (0-4) /HPF Ur Squamous Epith Cells /LPF Urine Bacteria /LPF Urine Opiates Screen (Not Detect) Ur Barbiturates Screen (Not Detect) Ur Phencyclidine Scrn (Not Detect) Ur Amphetamines Screen (Not Detect) U Benzodiazepines Scrn (Not Detect) Urine Cocaine Screen (Not Detect) U Marijuana (THC) Screen (Not Detect) Acetone, Qual Negative (Negative) Coronavirus (PCR) (Negative) Influenza Type A (PCR) (Negative) Influenza Type B (PCR) (Negative) Influenza A & B Note RSV RNA Qual (PCR) (Negative) 12/22/19 12/22/19 12/22/19 Range/Units 17:23 17:57 17:57 WBC (4.8-10.8) X10*3/uL RBC (4.20-5.50) X10*6/uL Hgb (12.0-16.0) g/dl Hct (37-47) % MCV (80-98) fL MCH (27.0-33.0) pg MCHC (31.0-35.0) g/dl RDW (11.0-16.0) % Plt Count (160-400) X10*3/uL MPV (9.4-12.3) fL Immature Gran % (Auto) (0.0-0.4) % Neut % (Auto) (45-73) % Lymph % (Auto) (20-40) % [place] % (Auto) (2-11) % Eos % (Auto) (0-4) % Baso % (Auto) (0-2) % Lymph # (Auto) (1.2-4.9) X10*3/uL [place] # (Auto) (0.1-1.2) X10*3/uL Eos # (Auto) (0.0-0.4) X10*3/uL Baso # (Auto) (0.0-0.2) X10*3/uL Abs Immat Gran (auto) (0.00-0.03) X10*3/uL Absolute Neuts (auto) (2.0-8.3) X10*3/uL Absolute Nucleated RBC (0.0-0.012) X10*3/uL Nucleated RBC % (auto) (0.0-0.2) /100WBC APTT (24.1-38.0) SEC Sodium (135-145) mmol/L Potassium (3.3-5.1) mmol/l Chloride (96-108) mmol/L Carbon Dioxide (22-29) mmol/L Anion Gap (12-20) BUN (9-16) mg/dL Creatinine (0.5-1.4) mg/dL Estim Creat Clear Calc Estimated GFR POC Glucose (60-115) mg/dL Random Glucose (60-115) mg/dL Lactic Acid (0.5-2.0) mmol/L Calcium (8.4-10.2) mg/dL Total Bilirubin (0.0-1.0) mg/dL Direct Bilirubin (0.0-0.5) mg/dL AST (5-31) U/L ALT (0-31) U/L Alkaline Phosphatase (39-117) U/L Troponin I High Sens < 3.5 (<3.5-17.0) ng/L Total Protein (6.5-8.0) g/dL Albumin (3.5-5.0) g/dL TSH (0.32-4.0) mIU/mL Urine Color Urine Appearance Urine pH (5.0-8.0) Ur Specific [place] (1.005-1.025) Urine Protein (NEG-TRACE) MG/DL Urine Glucose (UA) (NEG) MG/DL Urine Ketones (NEG) MG/DL Urine Blood (NEG) Urine Nitrite (NEG) Ur Leukocyte Esterase (NEG) Urine RBC (0) /HPF Urine WBC (0-4) /HPF Ur Squamous Epith Cells /LPF Urine Bacteria /LPF Urine Opiates Screen (Not Detect) Ur Barbiturates Screen (Not Detect) Ur Phencyclidine Scrn (Not Detect) Ur Amphetamines Screen (Not Detect) U Benzodiazepines Scrn (Not Detect) Urine Cocaine Screen (Not Detect) U Marijuana (THC) Screen (Not Detect) Acetone, Qual (Negative) Coronavirus (PCR) NEGATIVE (Negative) Influenza Type A (PCR) NEGATIVE (Negative) Influenza Type B (PCR) NEGATIVE (Negative) Influenza A & B Note See Note RSV RNA Qual (PCR) NEGATIVE (Negative) 12/22/19 Range/Units 19:35 WBC (4.8-10.8) X10*3/uL RBC (4.20-5.50) X10*6/uL Hgb (12.0-16.0) g/dl Hct (37-47) % MCV (80-98) fL MCH (27.0-33.0) pg MCHC (31.0-35.0) g/dl RDW (11.0-16.0) % Plt Count (160-400) X10*3/uL MPV (9.4-12.3) fL Immature Gran % (Auto) (0.0-0.4) % Neut % (Auto) (45-73) % Lymph % (Auto) (20-40) % [place] % (Auto) (2-11) % Eos % (Auto) (0-4) % Baso % (Auto) (0-2) % Lymph # (Auto) (1.2-4.9) X10*3/uL [place] # (Auto) (0.1-1.2) X10*3/uL Eos # (Auto) (0.0-0.4) X10*3/uL Baso # (Auto) (0.0-0.2) X10*3/uL Abs Immat Gran (auto) (0.00-0.03) X10*3/uL Absolute Neuts (auto) (2.0-8.3) X10*3/uL Absolute Nucleated RBC (0.0-0.012) X10*3/uL Nucleated RBC % (auto) (0.0-0.2) /100WBC APTT (24.1-38.0) SEC Sodium (135-145) mmol/L Potassium (3.3-5.1) mmol/l Chloride (96-108) mmol/L Carbon Dioxide (22-29) mmol/L Anion Gap (12-20) BUN (9-16) mg/dL Creatinine (0.5-1.4) mg/dL Estim Creat Clear Calc Estimated GFR POC Glucose (60-115) mg/dL Random Glucose (60-115) mg/dL Lactic Acid (0.5-2.0) mmol/L Calcium (8.4-10.2) mg/dL Total Bilirubin (0.0-1.0) mg/dL Direct Bilirubin (0.0-0.5) mg/dL AST (5-31) U/L ALT (0-31) U/L Alkaline Phosphatase (39-117) U/L Troponin I High Sens (<3.5-17.0) ng/L Total Protein (6.5-8.0) g/dL Albumin (3.5-5.0) g/dL TSH (0.32-4.0) mIU/mL Urine Color Urine Appearance Urine pH (5.0-8.0) Ur Specific [place] (1.005-1.025) Urine Protein (NEG-TRACE) MG/DL Urine Glucose (UA) (NEG) MG/DL Urine Ketones (NEG) MG/DL Urine Blood (NEG) Urine Nitrite (NEG) Ur Leukocyte Esterase (NEG) Urine RBC (0) /HPF Urine WBC (0-4) /HPF Ur Squamous Epith Cells /LPF Urine Bacteria /LPF Urine Opiates Screen POSITIVE H (Not Detect) Ur Barbiturates Screen Not Detected (Not Detect) Ur Phencyclidine Scrn Not Detected (Not Detect) Ur Amphetamines Screen Not Detected (Not Detect) U Benzodiazepines Scrn POSITIVE H (Not Detect) Urine Cocaine Screen Not Detected (Not Detect) U Marijuana (THC) Screen Not Detected (Not Detect) Acetone, Qual (Negative) Coronavirus (PCR) (Negative) Influenza Type A (PCR) (Negative) Influenza Type B (PCR) (Negative) Influenza A & B Note RSV RNA Qual (PCR) (Negative) Discharge Plan Discharge Clinical Impression: Non-small cell carcinoma of left lung, stage 4, UTI (urinary tract infection) Prescriptions: No Action clonidine HCl 0.1 mg tablet 0.1 mg PO BEDTIME RF: 0 alprazolam 1 mg tablet 1 mg PO BID RF: 0 hydroxyzine pamoate 50 mg capsule 50 mg PO Q8H PRN (Reason: Anxiety) RF: 0 bupropion HCl 300 mg tablet extended release 24 hr 300 mg PO DAILY RF: 0 polyethylene glycol 3350 17 gram powder in packet 17 g PO DAILY RF: 0 levetiracetam 500 mg tablet 500 mg PO BID RF: 0 ondansetron HCl 8 mg tablet 8 mg PO Q8H PRN (Reason: Nausea) RF: 0 sucralfate 1 gram tablet 1 g PO QID RF: 0 venlafaxine 150 mg capsule,extended release 24hr 150 mg PO DAILY RF: 0 meclizine 25 mg tablet 25 mg PO Q8H PRN (Reason: Dizziness) RF: 0 omeprazole 20 mg capsule,delayed release(DR/EC) 20 mg PO BID RF: 0 zolpidem 10 mg tablet 10 mg PO BEDTIME RF: 0 scopolamine base [Transderm-Scop] 1 mg over 3 days patch 3 day 1 mg transdermal Q3D RF: 0 mesalamine 800 mg tablet,delayed release (DR/EC) 800 mg PO TID RF: 0 Tresiba FlexTouch U-200 200 unit/mL (3 mL) insulin pen 20 unit subcut DAILY 30 Days Qty: 3 RF: 6 Fiasp FlexTouch U-100 Insulin 100 unit/mL (3 mL) insulin pen 5 unit subcut TID 30 Days Qty: 15 RF: 4 (DME) pen needle, diabetic [BD Mireya 2nd Gen Pen Needle] 32 gauge x 5/32 nee dle See Rx Instructions .ROUTE .MEDSUPPLY Qty: 400 RF: 4 alcohol swabs [Alcohol Prep Pads] Pads, Medicated 1 pad topical .COMPLEX 30 Days Qty: 200 RF: 5 (DME) OneTouch Verio test strips Strip See Rx Instructions .ROUTE .MEDSUPPLY Qty: 150 RF: 6 (DME) lancets [OneTouch Delica Lancets] 33 gauge misc See Rx Instructions .ROUTE .MEDSUPPLY Qty: 150 RF: 6 prednisone 10 mg tablet 10 mg PO DAILY 30 Days Qty: 30 RF: 4 prednisone 20 mg tablet 20 mg PO DAILY 30 Days Qty: 30 RF: 1
[2019-12-22 20:08] LABS: Amphetamine Screen Urine Not Detected (Not Detect); Barbiturates, Urine Not Detected (Not Detect); Benzodiazepines Screen Urine POSITIVE (Not Detect); Cannabinoid Screen Urine Not Detected (Not Detect); Cocaine Screen Urine Not Detected (Not Detect); Opiate Screen Urine POSITIVE (Not Detect); Phencyclidine Screen Urine Not Detected (Not Detect)
[2019-12-22 20:14] LABS: Resp Syncy Virus RNA Qual PCR NEGATIVE (Negative)
[2019-12-22 20:15] LABS: Appearance Urine CLOUDY; Color Urine ORANGE
[2019-12-22 20:15] LABS: SARS COV2 PCR INHOUSE NEGATIVE (Negative)
[2019-12-22 20:17] LABS: Bacteria Urine 3+ /LPF; Squamous Epithelial Cell Urine 1+ /LPF; WBC Urine 30-49 /HPF (0-4)
[2019-12-22] MEDS: cefTRIAXone sodium 1 GM in 0.9 % Sodium Chloride 50 ML IV (20:29)
[2019-12-22 21:08] VITALS: BP 109/63; PULSE 69; RESP 18; TEMP 36.7; O2SAT 96
--- NOTE | 2019-12-22 23:19 | PC.NURSE ---
REPORT GIVEN TO FLOOR
[2019-12-23] VITALS (10 sets, daily range): BP systolic 116–153; BP diastolic 60–90; PULSE 66–87; RESP 16–20; TEMP 36.4–37; O2SAT 96–98
[2019-12-23] MEDS: HYDROmorphone HCl 2 MG/ML VIAL IVPUSH (00:07)
--- NOTE | 2019-12-23 00:30 | PC.NURSE ---
ADMITTED TO OBS STATUS WITH UTI.PT HAS LUNG CA HISTORY WITH BONE METS.C/O OF SIGNIFICANT BONE PAIN. NO SOB.ON IV ROCEPHIN.ORIENTED TO UNIT AND PLAN OF CARE.
[2019-12-23] MEDS: Heparin Sodium,Porcine 5,000 UNIT/ML VIAL 5000 UNIT SUBCUT ×4 (00:45→23:23)
[2019-12-23] MEDS: 0.9 % Sodium Chloride Flush 3 ML SYRINGE IVFLUSH ×5 (00:45→22:11)
[2019-12-23 00:48] LABS: Glucose, Whole Blood 111 mg/dL (60-115)
--- NOTE | 2019-12-23 00:53 | P.HPIM_ITS ---
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 Patient is also complaining of generalized pain and weakness, loss of appetite and difficulty swallowing, progressively deteriorating physically. patient also reported that she had fever home of 102 1 day before Patient is also reporting that she has no pain control at home and has been suffering from significant amount of pain in her back due to the mets. patient has chronic diarrhea, she also is complaining of nausea vomiting, no abdominal pain, no lower extremity edema on arrival to the ED hemodynamically stable with no significant abnormal vitals labs are significant for WBC count 13.4, potassium of 3.1, UA is positive for for leukocyte Estrace and WBC chest x-ray negative for pneumonia past medical history: non-Small cell carcinoma, medication induced diabetes, colitis past surgical hitory: Shoulder surgery, cholecystectomy, family history: Skin cancer in mom, father had pancreatic cancer social history: Comes from home, currently smokes about 1-2 cigarettes, no alcohol or illicit drugs Review of Systems Review of Systems: Yes all other systems are reviewed and are negative [facility] Medical History Adrenal insufficiency Adrenal insufficiency due to cancer therapy Aftercare following left shoulder joint replacement surgery Asthma COPD (chronic obstructive pulmonary disease) Depression Hypothyroidism Multinodular goiter Newly diagnosed diabetes Non-small cell carcinoma of left lung, stage 4 Opioid abuse Pancreatitis Radiation-induced esophagitis Subclinical hyperthyroidism Family History Father Pancreatic cancer Mother Diabetes Brother Diabetes Sister Diabetes Surgical History History of Hx of blepharoplasty Status post cholecystectomy Social History Alcohol intake: never Smoking Status: Current some day smoker Tobacco Type: Cigarette Years Smoked: 45 Smoked in Last 30 Days: Yes Patient Interested in Nicotine Replacement: No Advance Directives: No Advance Directives Information Provided: No Meds Allergies Allergy/AdvReac Type Severity Reaction Status Date / Time acetaminophen [Tylenol] AdvReac Unknown Abdominal Verified 12/17/19 13:11 Pain ibuprofen AdvReac Unknown Abdominal Verified 12/17/19 13:11 Pain senna AdvReac Unknown Headache Verified 12/05/18 00:00 Home Medications Medication Instructions Recorded Confirmed Type alprazolam 1 mg PO TID 12/17/19 12/22/19 History bupropion HCl 300 mg PO DAILY 12/17/19 12/22/19 History clonidine HCl 0.1 mg PO BEDTIME 12/17/19 12/22/19 History hydroxyzine pamoate 50 mg PO Q8H PRN 12/17/19 12/22/19 History levetiracetam 500 mg PO BID 12/17/19 12/22/19 History meclizine 25 mg PO Q8H PRN 12/17/19 12/22/19 History mesalamine 800 mg PO TID 12/17/19 12/22/19 History omeprazole 20 mg PO BID 12/17/19 12/22/19 History polyethylene glycol 3350 17 g PO DAILY 12/17/19 12/22/19 History scopolamine base [Transderm-Scop] 1 mg TRANSDERMAL Q3D 12/17/19 12/22/19 History sucralfate 1 g PO BEDTIME 12/17/19 12/22/19 History venlafaxine 150 mg PO DAILY 12/17/19 12/22/19 History zolpidem 10 mg PO BEDTIME 12/17/19 12/22/19 History morphine 30 mg PO Q12H 12/22/19 12/22/19 History oxycodone 20 mg PO Q4H PRN 12/22/19 12/22/19 History Physical Exam Vital Signs and Narrative: Vital Signs: Last Vital Signs Temp 98.3 F 12/23/19 00:24 Pulse 69 12/23/19 00:24 Resp 18 12/23/19 00:24 BP 122/60 12/23/19 00:24 Pulse Ox 97 12/23/19 00:24 Body Mass Index 23.0 Const: General: cooperative and no acute distress Orientation/consciousness: patient oriented x3 Eyes: General: appearance normal, both eyes and all related structures Pupils: Equal, round and reactive pupils present Resp: Effort & Inspection: normal respiratory effort and able to speak in complete sentences Auscultation: clear to auscultation bilaterally Cardio: Rate: regular rate Rhythm: regular rhythm GI: Palpation (GI): Soft to palpation Auscultation: normal bowel sounds Skin: General skin exam: no rashes or lesions noted Neuro: General: patient oriented x3 Cranial nerves: Yes Equal, round and reactive pupils present Cognition (Neuro): normal cognition Extrem: General: Yes normal to inspection and Yes no pedal edema Results Labs Labs: Laboratory Tests 12/22/19 12/22/19 12/22/19 01:18 16:48 17:23 WBC 13.4 H RBC 3.85 L Hgb 11.1 L Hct 34.2 L MCV 88.8 MCH 28.8 MCHC 32.5 RDW 12.5 Plt Count 189 D MPV 12.2 Immature Gran % (Auto) 0.3 Neut % (Auto) 69.0 Lymph % (Auto) 21.9 [place] % (Auto) 6.9 Eos % (Auto) 1.5 Baso % (Auto) 0.4 Lymph # (Auto) 2.9 [place] # (Auto) 0.9 Eos # (Auto) 0.2 Baso # (Auto) 0.1 Abs Immat Gran (auto) 0.04 H Absolute Neuts (auto) 9.3 H Absolute Nucleated RBC 0.000 Nucleated RBC % (auto) 0.0 APTT Sodium Potassium Chloride Carbon Dioxide Anion Gap BUN Creatinine Estim Creat Clear Calc Estimated GFR POC Glucose 172 H Random Glucose Lactic Acid Calcium Total Bilirubin Direct Bilirubin AST ALT Alkaline Phosphatase Troponin I High Sens Total Protein Albumin TSH Urine Color ORANGE Urine Appearance CLOUDY Urine pH 5.0 Ur Specific Wallace <= 1.005 Urine Protein 2+ H Urine Glucose (UA) 250 H Urine Ketones NEG Urine Blood 1+ H Urine Nitrite POS H Ur Leukocyte Esterase 2+ H Urine RBC 10-14 H Urine WBC 30-49 H Ur Squamous Epith Cells 1+ Urine Bacteria 3+ Urine Opiates Screen Ur Barbiturates Screen Ur Phencyclidine Scrn Ur Amphetamines Screen U Benzodiazepines Scrn Urine Cocaine Screen U Marijuana (THC) Screen Acetone, Qual Coronavirus (PCR) Influenza Type A (PCR) Influenza Type B (PCR) Influenza A & B Note RSV RNA Qual (PCR) 12/22/19 12/22/19 12/22/19 17:23 17:23 17:23 WBC RBC Hgb Hct MCV MCH MCHC RDW Plt Count MPV Immature Gran % (Auto) Neut % (Auto) Lymph % (Auto) [place] % (Auto) Eos % (Auto) Baso % (Auto) Lymph # (Auto) [place] # (Auto) Eos # (Auto) Baso # (Auto) Abs Immat Gran (auto) Absolute Neuts (auto) Absolute Nucleated RBC Nucleated RBC % (auto) APTT 28.2 Sodium 137 Potassium 3.1 L D Chloride 101 Carbon Dioxide 29 Anion Gap 10 L BUN 13 Creatinine 0.76 Estim Creat Clear Calc 70.0 Estimated GFR > 60 POC Glucose Random Glucose 175 H D Lactic Acid 1.5 Calcium 8.5 Total Bilirubin 0.7 Direct Bilirubin 0.3 AST 17 ALT 24 Alkaline Phosphatase 105 Troponin I High Sens Total Protein 6.3 L Albumin 3.9 TSH 0.21 L Urine Color Urine Appearance Urine pH Ur Specific Wallace Urine Protein Urine Glucose (UA) Urine Ketones Urine Blood Urine Nitrite Ur Leukocyte Esterase Urine RBC Urine WBC Ur Squamous Epith Cells Urine Bacteria Urine Opiates Screen Ur Barbiturates Screen Ur Phencyclidine Scrn Ur Amphetamines Screen U Benzodiazepines Scrn Urine Cocaine Screen U Marijuana (THC) Screen Acetone, Qual Negative Coronavirus (PCR) Influenza Type A (PCR) Influenza Type B (PCR) Influenza A & B Note RSV RNA Qual (PCR) 12/22/19 12/22/19 12/22/19 17:23 17:57 17:57 WBC RBC Hgb Hct MCV MCH MCHC RDW Plt Count MPV Immature Gran % (Auto) Neut % (Auto) Lymph % (Auto) [place] % (Auto) Eos % (Auto) Baso % (Auto) Lymph # (Auto) [place] # (Auto) Eos # (Auto) Baso # (Auto) Abs Immat Gran (auto) Absolute Neuts (auto) Absolute Nucleated RBC Nucleated RBC % (auto) APTT Sodium Potassium Chloride Carbon Dioxide Anion Gap BUN Creatinine Estim Creat Clear Calc Estimated GFR POC Glucose Random Glucose Lactic Acid Calcium Total Bilirubin Direct Bilirubin AST ALT Alkaline Phosphatase Troponin I High Sens < 3.5 Total Protein Albumin TSH Urine Color Urine Appearance Urine pH Ur Specific Wallace Urine Protein Urine Glucose (UA) Urine Ketones Urine Blood Urine Nitrite Ur Leukocyte Esterase Urine RBC Urine WBC Ur Squamous Epith Cells Urine Bacteria Urine Opiates Screen Ur Barbiturates Screen Ur Phencyclidine Scrn Ur Amphetamines Screen U Benzodiazepines Scrn Urine Cocaine Screen U Marijuana (THC) Screen Acetone, Qual Coronavirus (PCR) NEGATIVE Influenza Type A (PCR) NEGATIVE Influenza Type B (PCR) NEGATIVE Influenza A & B Note See Note RSV RNA Qual (PCR) NEGATIVE 12/22/19 12/23/19 19:35 00:26 WBC RBC Hgb Hct MCV MCH MCHC RDW Plt Count MPV Immature Gran % (Auto) Neut % (Auto) Lymph % (Auto) [place] % (Auto) Eos % (Auto) Baso % (Auto) Lymph # (Auto) [place] # (Auto) Eos # (Auto) Baso # (Auto) Abs Immat Gran (auto) Absolute Neuts (auto) Absolute Nucleated RBC Nucleated RBC % (auto) APTT Sodium Potassium Chloride Carbon Dioxide Anion Gap BUN Creatinine Estim Creat Clear Calc Estimated GFR POC Glucose 111 Random Glucose Lactic Acid Calcium Total Bilirubin Direct Bilirubin AST ALT Alkaline Phosphatase Troponin I High Sens Total Protein Albumin TSH Urine Color Urine Appearance Urine pH Ur Specific Wallace Urine Protein Urine Glucose (UA) Urine Ketones Urine Blood Urine Nitrite Ur Leukocyte Esterase Urine RBC Urine WBC Ur Squamous Epith Cells Urine Bacteria Urine Opiates Screen POSITIVE H Ur Barbiturates Screen Not Detected Ur Phencyclidine Scrn Not Detected Ur Amphetamines Screen Not Detected U Benzodiazepines Scrn POSITIVE H Urine Cocaine Screen Not Detected U Marijuana (THC) Screen Not Detected Acetone, Qual Coronavirus (PCR) Influenza Type A (PCR) Influenza Type B (PCR) Influenza A & B Note RSV RNA Qual (PCR) Imaging Chest x-ray: Radiologist's impression: IMPRESSION: No acute findings. No evidence of pneumonia. Assessment and Plan (1) UTI (urinary tract infection): Qualifiers: Urinary tract infection type: site unspecified Status: Acute (2) Newly diagnosed diabetes: Status: Acute (3) Non-small cell carcinoma of left lung, stage 4: Status: Acute this is a 54-year-old female with a history of lung cancer who presents to the hospital with dysuria # UTI - start on ceftriaxone - follow blood and urine culture # chemotherapy-induced diabetes - patient on Degludec at home - continue Lantus at 15 units and low-dose sliding scale insulin - diabetic diet # non-small lung cancer with Mets to the bone - continue with oxycodone for pain management DVT prophylaxis: Heparin date of service 12/22/2019
[2019-12-23] MEDS: HYDROmorphone HCl 0.5 MG/0.5 ML SYRINGE IVPUSH (03:14)
--- NOTE | 2019-12-23 03:15 | MHC.PIE ---
P.C/O PAIN.DECLINES PO MS I.PT STATES THAT PO PAIN MEDS DO NOT WORK FOR HER PAIN.STATES THEY CONSTIPATE HER. UPDATED.ORDER FOR DILAUDID 0.5MG IV X 1 GIVEN.PT UPDATED AND MED GIVEN E.CONT TO MONITOR.
[2019-12-23 03:24] LABS: Glucose, Whole Blood 322 mg/dL (60-115)
--- NOTE | 2019-12-23 03:30 | MHC.PIE ---
P.POC 322 I.PT HAD TAKEN LIGHT SNACK UPON ARRIVING TO UNIT.POC THEN WAS 111.NOW PT C/O HEADACHE.POC LZSEDIB=204. NOTIFIED.NO NEW ORDERS AT THIS TIME. E.CONT TO MONITOR.
[2019-12-23 06:23] LABS: MANUAL DIFF FLAG NO
[2019-12-23 06:44] LABS: Basophils Absolute Auto 0.1 X10*3/uL (0.0-0.2); Basophils Percent Auto 0.8 % (0-2); Eosinophils Absolute Auto 0.3 X10*3/uL (0.0-0.4); Eosinophils Percent Auto 3.6 % (0-4); Hematocrit 33.2 % (37-47); Hemoglobin 10.4 g/dl (12.0-16.0); Imm Gran Abs Auto 0.04 X10*3/uL (0.00-0.03); Imm Gran Pct Auto 0.5 % (0.0-0.4); Lymphocytes Absolute Auto 3.5 X10*3/uL (1.2-4.9); Lymphocytes Percent Auto 40.6 % (20-40); Mean Corpuscular HGB Conc 31.3 g/dl (31.0-35.0); Mean Corpuscular Hemoglobin 28.7 pg (27.0-33.0); Mean Corpuscular Volume 91.5 fL (80-98); Mean Platelet Volume 12.7 fL (9.4-12.3); Monocytes Absolute Auto 0.5 X10*3/uL (0.1-1.2); Monocytes Percent Auto 5.4 % (2-11); Neutrophils Absolute Auto 4.2 X10*3/uL (2.0-8.3); Neutrophils Percent Auto 49.1 % (45-73); Platelet Count 166 X10*3/uL (160-400); Red Blood Count 3.63 X10*6/uL (4.20-5.50); Red Cell Distribution Width 12.7 % (11.0-16.0); White Blood Count 8.5 X10*3/uL (4.8-10.8)
[2019-12-23 07:12] LABS: Anion Gap 11 (12-20); Blood Urea Nitrogen 10 mg/dL (9-16); Calcium 8.1 mg/dL (8.4-10.2); Carbon Dioxide 27 mmol/L (22-29); Chloride 106 mmol/L (96-108); Creatinine Clr Calc Pharmacy 70.9; Estimated Glomerular Filt Rate > 60; Glucose Random 277 mg/dL (60-115); Potassium 4.7 mmol/l (3.3-5.1); Sodium 139 mmol/L (135-145)
[2019-12-23 07:18] LABS: Glucose, Whole Blood 322 mg/dL (60-115)
[2019-12-23] MEDS: Omeprazole 20 MG CAPSULE.DR PO ×2 (09:06→20:50)
[2019-12-23] MEDS: Venlafaxine HCl ER 150 MG CAP.ER.24H PO (09:06)
[2019-12-23 09:07] LABS: Glucose, Whole Blood 165 mg/dL (60-115)
[2019-12-23] MEDS: predniSONE 20 MG TABLET PO (09:07)
[2019-12-23] MEDS: levETIRAcetam 500 MG TABLET PO ×2 (09:07→20:50)
[2019-12-23] MEDS: buPROPion HCl XL 300 MG TAB.ER.24H PO (09:07)
[2019-12-23] MEDS: oxyCODONE HCl Immed Release 5 MG TABLET PO ×2 (10:07→15:51)
--- NOTE | 2019-12-23 10:13 | PC.NURSE ---
0800- pt c/o 12/18 headache and generalized pain, po tylenol and oxy offered at this time, pt refused stating i cant have tylenol bc of my chemo meds and pain pills dont work, i need the iv dilaudid . msg to dr booth informing him, dr booth to bedside to discuss meds and discharge plan with pt.
--- NOTE | 2019-12-23 11:10 | MHC.CM.PN ---
CM met with patient who reports she lives alone and has [employer] services from [facility]. Patient amb with a cane and will be staying with her mom on discharge. Patient states she does have a HCP, copy requested. Discussed discharge plan, home with resumption of [employer] services, Family will provide transport. CM will continue to follow patient for discharge needs.
[2019-12-23 11:41] LABS: Glucose, Whole Blood 175 mg/dL (60-115)
[2019-12-23] MEDS: Morphine Sulfate ER 30 MG TABLET.ER PO (12:55)
[2019-12-23] MEDS: HYDROmorphone HCl 1 MG/ML SYRINGE IVPUSH ×3 (13:55→20:51)
--- NOTE | 2019-12-23 14:22 | HO.PM.IMPN ---
Subjective Subjective Date of Service: 12/23/19 Interval History: Seen in follow up for for UTI, and cancer pain Review of Systems No fever pain on urination diffuse bone ache Physical Exam Vital Signs: Vital Signs: Vital Signs Temp Pulse Resp BP Pulse Ox 12/23/19 13:55 20 12/23/19 11:19 97.7 F 68 16 132/90 H 96 12/23/19 08:00 97.8 F 67 18 129/75 97 12/23/19 03:36 97.5 F 72 18 116/69 98 12/23/19 00:24 98.3 F 69 18 122/60 97 12/22/19 21:08 98.0 F 69 18 109/63 96 12/22/19 16:55 97.6 F 74 18 80/49 L 96 Body Mass Index 23.0 Objective Data Current Medications Generic Name Dose Route Start Last Admin Trade Name Freq PRN Reason Stop Dose Admin Acetaminophen 650 mg 12/22/19 23:28 Acetaminophen 325 Mg Tablet PO Q6H PRN Pain, Mild (Pain Scale 1-3) Bupropion HCl 300 mg 12/23/19 09:00 12/23/19 09:07 Bupropion Hcl Xl 300 Mg Tab.Er.24h PO 300 mg DAILY SHABANA Administration Clonidine HCl 0.1 mg 12/23/19 21:00 Clonidine Hcl 0.1 Mg Tablet PO BEDTIME [facility] Protocol Docusate Sodium 100 mg 12/22/19 23:28 Docusate Sodium 100 Mg Capsule PO DAILY PRN Constipation Heparin Sodium (Porcine) 5,000 unit 12/22/19 23:28 12/23/19 09:06 Heparin Sodium,Porcine 5,000 Unit/Ml Vial SUBCUT 5,000 unit Q8H SHABANA Administration Hydromorphone HCl 1 mg 12/23/19 13:33 12/23/19 13:55 Hydromorphone Hcl 1 Mg/Ml Syringe IVPUSH 1 mg Q4H PRN Administration Pain, Severe (Pain Scale 7-10) Ceftriaxone Sodium 1 gm/ 50 mls @ 100 mls/hr 12/23/19 20:00 Sodium Chloride IV Q24H SHABANA Insulin Glargine 15 unit 12/23/19 21:00 Insulin Glargine,Hum.Rec.Anlog 100 Unit/Ml 10 Ml Vial SUBCUT BEDTIME SHABANA Levetiracetam 500 mg 12/23/19 09:00 12/23/19 09:07 Levetiracetam 500 Mg Tablet PO 500 mg BID SHABANA Administration Meclizine HCl 25 mg 12/23/19 01:33 Meclizine Hcl 25 Mg Tablet PO Q8H PRN Dizziness Morphine Sulfate 30 mg 12/23/19 01:45 12/23/19 12:55 Morphine Sulfate Er 30 Mg Tablet.Er PO 30 mg Q12H SHABANA Administration Omeprazole 20 mg 12/23/19 09:00 12/23/19 09:06 Omeprazole 20 Mg Capsule.Dr PO 20 mg BID SHABANA Administration Ondansetron HCl 4 mg 12/22/19 23:28 Ondansetron Hcl 4 Mg/2 Ml Vial IVPUSH Q8H PRN Nausea and Vomiting Oxycodone HCl 5 mg 12/22/19 23:28 12/23/19 10:07 Oxycodone Hcl Immed Release 5 Mg Tablet PO 5 mg Q6H PRN Administration Pain, Severe (Pain Scale 7-10) Oxycodone HCl 5 mg 12/22/19 23:47 Oxycodone Hcl Immed Release 5 Mg Tablet PO Q6H PRN Pain, Severe (Pain Scale 7-10) Prednisone 20 mg 12/23/19 09:00 12/23/19 09:07 Prednisone 20 Mg Tablet PO 20 mg DAILY SHABANA Administration Sodium Chloride 3 ml 12/23/19 00:00 12/23/19 09:06 0.9 % Sodium Chloride Flush 3 Ml Syringe IVFLUSH 3 ml QSHIFT SHABANA Administration Venlafaxine HCl 150 mg 12/23/19 09:00 12/23/19 09:06 Venlafaxine Hcl Er 150 Mg Cap.Er.24h PO 150 mg DAILY SHABANA Administration Labs CBC & Chem 7: 12/23/19 06:00 12/23/19 06:00 Assessment and Plan (1) UTI (urinary tract infection): Status: Acute (2) Newly diagnosed diabetes: Status: Acute (3) Non-small cell carcinoma of left lung, stage 4: Status: Acute Assessment and Plan: 54-year-old female with a history of lung cancer who presents to the hospital with dysuria # UTI--Continue Ceftriaxone. Follow culture # chemotherapy-induced diabetes - patient on Degludec at home - continue Lantus at 15 units, add SSI, Diabetic diet -Diffuse cancer related pain--IV dilaudid and adjust med at discharge # non-small lung cancer with Mets to the bone - continue with oxycodone for pain management DVT prophylaxis: Heparin
[2019-12-23 20:43] LABS: Glucose, Whole Blood 267 mg/dL (60-115)
[2019-12-23] MEDS: cefTRIAXone sodium 1 GM in 0.9 % Sodium Chloride 50 ML IV (20:48)
[2019-12-23] MEDS: cloNIDine HCL 0.1 MG TABLET PO (20:50)
[2019-12-23] MEDS: Insulin Glargine,Hum.rec.anlog 100 UNIT/ML 10 ML VIAL 15 UNIT SUBCUT (20:52)
[2019-12-23] MEDS: Zolpidem Tartrate 5 MG TABLET 10 MG PO (22:11)
[2019-12-23] MEDS: ALPRAZolam 0.5 MG TABLET PO (23:23)
[2019-12-24 01:39] VITALS: RESP 20
[2019-12-24] MEDS: HYDROmorphone HCl 1 MG/ML SYRINGE IVPUSH ×2 (01:39→07:49)
[2019-12-24 03:34] VITALS: BP 136/69; PULSE 66; RESP 20; TEMP 36.4; O2SAT 97
[2019-12-24 07:30] VITALS: BP 165/83; PULSE 63; RESP 16; TEMP 36.6; O2SAT 95
[2019-12-24 07:38] LABS: Glucose, Whole Blood 159 mg/dL (60-115)
[2019-12-24] MEDS: Heparin Sodium,Porcine 5,000 UNIT/ML VIAL 5000 UNIT SUBCUT (07:48)
[2019-12-24] MEDS: Omeprazole 20 MG CAPSULE.DR PO (07:49)
[2019-12-24] MEDS: Venlafaxine HCl ER 150 MG CAP.ER.24H PO (07:49)
[2019-12-24] MEDS: predniSONE 20 MG TABLET PO (07:49)
[2019-12-24] MEDS: buPROPion HCl XL 300 MG TAB.ER.24H PO (07:49)
[2019-12-24] MEDS: levETIRAcetam 500 MG TABLET PO (07:49)
[2019-12-24] MEDS: oxyCODONE HCl Immed Release 5 MG TABLET PO (10:08)
[2019-12-24 11:20] VITALS: BP 136/84; PULSE 75; RESP 16; TEMP 36.6; O2SAT 97
[2019-12-24 11:27] LABS: Glucose, Whole Blood 212 mg/dL (60-115)
[2019-12-24] MEDS: Morphine Sulfate ER 30 MG TABLET.ER PO (13:20)
[2019-12-24 13:28] LABS: Glucose, Whole Blood 312 mg/dL (60-115)
--- NOTE | 2019-12-24 13:35 | PM.DS ---
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 Patient is also complaining of generalized pain and weakness, loss of appetite and difficulty swallowing, progressively deteriorating physically. patient also reported that she had fever home of 102 1 day before Patient is also reporting that she has no pain control at home and has been suffering from significant amount of pain in her back due to the mets. patient has chronic diarrhea, she also is complaining of nausea vomiting, no abdominal pain, no lower extremity edema on arrival to the ED hemodynamically stable with no significant abnormal vitals labs are significant for WBC count 13.4, potassium of 3.1, UA is positive for for leukocyte Estrace and WBC hospital course 1. UTI no sepsis--cultures negative, has been on ceftriaxone, no fever, no increase wbc. Will change to PO Ceftin for 5 more days 2. Diabetes--to continue insulin as recommended by Endocrinolisti 3. Cancer--follow up with Dr. Garcia 4. Hypokelemia--resolved. Time Spent with Patient Time attestation: Total time spent providing and/or coordinating discharge services: Physical Exam Vital Signs: Vital Signs: Vital Signs Temp Pulse Resp BP Pulse Ox 12/24/19 11:20 97.9 F 75 16 136/84 97 12/24/19 07:30 97.8 F 63 16 165/83 H 95 12/24/19 03:34 97.5 F 66 20 136/69 97 12/24/19 01:39 20 12/23/19 23:28 98.1 F 75 18 145/78 H 96 12/23/19 20:51 18 12/23/19 20:50 73 147/87 H 12/23/19 19:36 98.6 F 87 18 148/85 H 97 12/23/19 15:24 98.2 F 66 20 153/87 H 97 12/23/19 13:55 20 Body Mass Index 23.0 Const: Orientation/consciousness: patient oriented x3 Eyes: Pupils: Equal, round and reactive pupils present Chest: Chest palpation & inspection: normal inspection of the chest Resp: Effort & Inspection: normal respiratory effort and able to speak in complete sentences Auscultation: clear to auscultation bilaterally Cardio: Jugular venous distension: no JVD Rate: regular rate Rhythm: regular rhythm GI: Inspection: Yes normal to inspection Palpation (GI): Soft to palpation Percussion: Yes normal to percussion Auscultation: normal bowel sounds : General: Yes no CVA tenderness Back/Spine/Pelvis: Back: no CVA tenderness Neuro: General: patient oriented x3 Cranial nerves: Yes Equal, round and reactive pupils present Cognition (Neuro): normal cognition DS: Data Data Completed and Pending Labs on day of discharge: Labs from last 24 hours 12/24/19 12/24/19 12/24/19 13:19 11:24 07:34 POC Glucose 312 H 212 H 159 H 12/23/19 20:40 POC Glucose 267 H Preliminary micro results at discharge 12/22/19 17:57 Blood Culture - Preliminary Blood - Venous No growth after 24 hours. 12/22/19 17:29 Blood Culture - Preliminary Blood - Venous No growth after 24 hours. Discharge Plan Discharge Patient Disposition: Home, Self-Care Referrals: Jennifer Ascencio NP [Primary Care Provider] - Discharge Medications: New cefuroxime axetil 500 mg tablet 500 mg PO BID 10 Days Qty: 10 RF: 0 oxycodone 10 mg tablet 10 mg PO Q6H PRN (Reason: pain) Qty: 14 RF: 0 Continued oxycodone 20 mg Tablet 20 mg PO Q4H PRN (Reason: Pain (Scale Score 7-10)) RF: 0 morphine 30 mg Tablet Extended Release 30 mg PO Q12H RF: 0 clonidine HCl 0.1 mg tablet 0.1 mg PO BEDTIME RF: 0 alprazolam 1 mg tablet 1 mg PO TID RF: 0 hydroxyzine pamoate 50 mg capsule 50 mg PO Q8H PRN (Reason: Anxiety) RF: 0 bupropion HCl 300 mg tablet extended release 24 hr 300 mg PO DAILY RF: 0 polyethylene glycol 3350 17 gram powder in packet 17 g PO DAILY RF: 0 levetiracetam 500 mg tablet 500 mg PO BID RF: 0 sucralfate 1 gram tablet 1 g PO BEDTIME RF: 0 venlafaxine 150 mg capsule,extended release 24hr 150 mg PO DAILY RF: 0 meclizine 25 mg tablet 25 mg PO Q8H PRN (Reason: Dizziness) RF: 0 omeprazole 20 mg capsule,delayed release(DR/EC) 20 mg PO BID RF: 0 zolpidem 10 mg tablet 10 mg PO BEDTIME RF: 0 scopolamine base [Transderm-Scop] 1 mg over 3 days patch 3 day 1 mg transdermal Q3D RF: 0 mesalamine 800 mg tablet,delayed release (DR/EC) 800 mg PO TID RF: 0 Tresiba FlexTouch U-200 200 unit/mL (3 mL) insulin pen 20 unit subcut DAILY 30 Days Qty: 3 RF: 6 (DME) pen needle, diabetic [BD Mireya 2nd Gen Pen Needle] 32 gauge x 5/32 needle See Rx Instructions .ROUTE .MEDSUPPLY Qty: 400 RF: 4 (DME) OneTouch Verio test strips Strip See Rx Instructions .ROUTE .MEDSUPPLY Qty: 150 RF: 6 (DME) lancets [OneTouch Delica Lancets] 33 gauge misc See Rx Instructions .ROUTE .MEDSUPPLY Qty: 150 RF: 6 prednisone 20 mg tablet 20 mg PO DAILY 30 Days Qty: 30 RF: 1 No Action Toujeo SoloStar U-300 Insulin 300 unit/mL (1.5 mL) insulin pen 30 unit subcut BEDTIME 30 Days Qty: 9 RF: 4 insulin aspart U-100 [Novolog Flexpen U-100 Insulin] 100 unit/mL (3 mL) insulin pen See Rx Instructions subcut .4 times a day 30 Days Qty: 30 RF: 4 Discharge Orders: Discharge Order (Routine); Ordered 12/24/19 Ordered By: Joe Tello Diet: advance to your usual diet Activity on Discharge: As tolerated Discharge Date/Time: 12/24/19 15:17 Visit Report Forms: Patient Portal Discharge page Care Plan Goals: Eradicate UIT and return to usual health Health Concerns: worsening of UTI Plan of Treatment: Take antibiotics as recommended and follow up with your Doctor and Oncologist
[2019-12-24] MEDS: Insulin Lispro 100 UNIT/ML 3 ML VIAL SUBCUT (13:48)
--- NOTE | 2019-12-24 14:11 | MHC.CM.PN ---
Patient will be discharged home today with resumption of [employer] services. Family will provide transportation.
[2019-12-24 15:09] VITALS: BP 149/90; PULSE 68; RESP 20; TEMP 36.3; O2SAT 97
== END 2019-12-24 15:17 | disposition home or self-care (01) ==
LOC: HO.ED 21:27 → HO.IMC 22:28
PROVIDERS: Nurse Practitioner Primary Care; Admitting Provider Internal Medicine; Emergency Provider Internal Medicine; PCP Nurse Practitioner Family; Visit Provider Internal Medicine
DX: N39.0 Urinary tract infection, site not specified (principal); R05 Cough; C34.92 Malignant neoplasm of unspecified part of left bronchus or lung; C79.51 Secondary malignant neoplasm of bone; G89.3 Neoplasm related pain (acute) (chronic); E09.9 Drug or chemical induced diabetes mellitus without complications; E27.3 Drug-induced adrenocortical insufficiency; T45.1X5A Adverse effect of antineoplastic and immunosuppressive drugs, initial encounter; Y92.9 Unspecified place or not applicable; M79.7 Fibromyalgia; F41.8 Other specified anxiety disorders; F17.210 Nicotine dependence, cigarettes, uncomplicated; Z20.828 Contact with and (suspected) exposure to other viral communicable diseases; Z79.4 Long term (current) use of insulin; Z79.52 Long term (current) use of systemic steroids; Z79.899 Other long term (current) drug therapy
CPT/HCPCS: 36415; 71045; 80048; 80053; 80076; 80307; 81001; 82009; 82248; 82947; 83605; 84443; 84484; 85025; 85027; 85730; 87040; 87631; 87635; 93005; 96361; 96365; 96366; 96372; 96375; 96376; 99219; 99285; J1170

== ENCOUNTER 2019-12-30 21:46 | Emergency (ER) | payer OTHER, SELFPAY ==
[2019-12-30 21:52] VITALS: BP 72/44; PULSE 78; RESP 16; TEMP 37.7; O2SAT 97; BMI 23.1
[2019-12-30 22:12] VITALS: BP 93/60; PULSE 77; RESP 14; TEMP 37.2; O2SAT 98
--- NOTE | 2019-12-30 22:53 | ED.GENADULT ---
HPI - General Adult General Chief complaint: General Medical Stated complaint: Low blood pressure/High Sugar Time Seen by Provider: 12/30/19 22:53 History of Present Illness HPI narrative: This is a 54-year-old female who presents with complaints of low blood pressure and high sugars and inadequate pain control. Patient is known to have extensive cancer and states that her pain control home is not sufficient. Otherwise, she denies any fevers, chills, nausea, vomiting, diarrhea, urinary pain /burning / frequency. Related Data Home Medications Medication Instructions Recorded Confirmed alprazolam 1 mg PO TID 12/17/19 12/22/19 bupropion HCl 300 mg PO DAILY 12/17/19 12/22/19 clonidine HCl 0.1 mg PO BEDTIME 12/17/19 12/22/19 hydroxyzine pamoate 50 mg PO Q8H PRN 12/17/19 12/22/19 levetiracetam 500 mg PO BID 12/17/19 12/22/19 meclizine 25 mg PO Q8H PRN 12/17/19 12/22/19 mesalamine 800 mg PO TID 12/17/19 12/22/19 omeprazole 20 mg PO BID 12/17/19 12/22/19 polyethylene glycol 3350 17 g PO DAILY 12/17/19 12/22/19 scopolamine base [Transderm-Scop] 1 mg TRANSDERMAL Q3D 12/17/19 12/22/19 sucralfate 1 g PO BEDTIME 12/17/19 12/22/19 venlafaxine 150 mg PO DAILY 12/17/19 12/22/19 zolpidem 10 mg PO BEDTIME 12/17/19 12/22/19 morphine 30 mg PO Q12H 12/22/19 12/22/19 oxycodone 20 mg PO Q4H PRN 12/22/19 12/22/19 Previous Rx's Medication Instructions Recorded blood sugar diagnostic #150 ea 12/18/19 insulin degludec 200 unit/mL (3 20 unit SUBCUT DAILY 30 Days #3 ml 12/18/19 mL) subcutaneous pen lancets 33 gauge #150 ea 12/18/19 pen needle, diabetic 32 gauge x #400 ea 12/18/19 prednisone 20 mg tablet 20 mg PO DAILY 30 Days #30 tab 12/18/19 cefuroxime axetil 500 mg PO BID 10 Days #10 tab 12/24/19 oxycodone 10 mg PO Q6H PRN #14 tab 12/24/19 insulin aspart U-100 100 unit/mL See Rx Instructions SUBCUT .4 12/25/19 (3 mL) subcutaneous pen times a day 30 Days #30 ml insulin glargine U-300 conc 300 30 unit SUBCUT BEDTIME 30 Days #9 12/25/19 unit/mL (1.5 mL) subcutaneous pen ml blood sugar diagnostic #150 ea 12/28/19 blood-glucose meter #1 ea 12/28/19 lancets 28 gauge #150 ea 12/28/19 Allergies Allergy/AdvReac Type Severity Reaction Status Date / Time acetaminophen [Tylenol] AdvReac Unknown Abdominal Verified 12/17/19 13:11 Pain ibuprofen AdvReac Unknown Abdominal Verified 12/17/19 13:11 Pain senna AdvReac Unknown Headache Verified 12/05/18 00:00 Review of Systems Review of Systems: Pertinent positives and negatives as stated in HPI and 10 point review of systems is otherwise negative [facility] Past Medical History Source: nursing notes reviewed Medical History Adrenal insufficiency Adrenal insufficiency due to cancer therapy Aftercare following left shoulder joint replacement surgery Asthma COPD (chronic obstructive pulmonary disease) Depression Hypothyroidism Multinodular goiter Newly diagnosed diabetes Non-small cell carcinoma of left lung, stage 4 Opioid abuse Pancreatitis Radiation-induced esophagitis Subclinical hyperthyroidism Surgical History History of Hx of blepharoplasty Status post cholecystectomy Family History Family History Father Pancreatic cancer Mother Diabetes Brother Diabetes Sister Diabetes Social History Social History Alcohol intake: never Smoking Status: Former smoker Tobacco Type: Cigarette Years Smoked: 45 Smoked in Last 30 Days: Yes Use of substances other than those prescribed or required for medical reasons: No Advance Directives: No Advance Directives Information Provided: Yes service: No Current occupational status: disabled Physical Exam Vital Signs: Vital Signs: Vital Signs Temp Pulse Resp BP Pulse Ox 12/31/19 01:41 58 16 126/72 98 12/31/19 00:00 54 16 98 12/30/19 23:24 56 15 130/74 98 12/30/19 22:12 98.9 F 77 14 93/60 98 12/30/19 21:52 100 F 78 16 72/44 L 97 Body Mass Index 23.1 VITAL SIGNS: Reviewed. GENERAL: Well developed, well nourished, in no acute distress. HEAD: Normocephalic/atraumatic, EYES: PERRLA, EOMI intact without pain, no nystagmus/pallor/icterus noted EARS: Ext canals without abnormality, TMs non-bulging and non-erythematous NOSE: Nares patent bilateral OROPHARYNX: no oral lesions noted, posterior pharynx clear and non-erythematous without noted tonsillar enlargement/erythema/exudates NECK: Supple, no adenopathy LUNGS: Normal breath sounds. No adventitious sounds or accessory muscle use. SpO2<97%> CARDIOVASCULAR: Regular rate and rhythm without noted murmurs, no JVD or lower extremity edema. ABDOMEN: Soft, non-tender, non-distended with bowel sounds. No rigidity. No guarding. No palpable masses or hernias noted MUSCULOSKELETAL: No tenderness, deformities, or effusions noted on gross inspection. EXTREMITIES: No cyanosis, clubbing or edema. SKIN: Inspection of the skin reveals no rashes, ulcerations, jaundice, pallor, or petechiae. NEUROLOGIC: Alert and oriented x 4. Strength and sensation to light touch were grossly intact x 4. Course Course Course Narrative: This is a 54-year-old female with history clinical presentation consistent with metastatic cancer and on review of her laboratory workup there is no evidence of systemic infection and anemia is chronically stable. Although there is a noted mild hyponatremia this is likely secondary to elevated glucose. The latter of which is not associated with evidence of DKA or HHS. Patient also received IV fluids with good response in blood pressure. she received 1 mg of Dilaudid for pain control and was found to have significant improvement on re-evaluation. All results and findings of her workup were discussed with her at bedside and she was strongly encouraged to discuss more appropriate pain control by her outpatient providers. Medical Decision Making Lab Data Result diagrams: 12/30/19 23:22 12/30/19 23:22 Labs: Lab Results 12/30/19 12/30/19 12/30/19 Range/Units 23:01 23:22 23:22 WBC 10.3 (4.8-10.8) X10*3/uL RBC 3.86 L (4.20-5.50) X10*6/uL Hgb 11.3 L (12.0-16.0) g/dl Hct 34.7 L (37-47) % MCV 89.9 (80-98) fL MCH 29.3 (27.0-33.0) pg MCHC 32.6 (31.0-35.0) g/dl RDW 13.0 (11.0-16.0) % Plt Count 191 (160-400) X10*3/uL MPV 12.1 (9.4-12.3) fL Immature Gran % (Auto) 0.3 (0.0-0.4) % Neut % (Auto) 50.0 (45-73) % Lymph % (Auto) 39.6 (20-40) % [place] % (Auto) 7.0 (2-11) % Eos % (Auto) 2.6 (0-4) % Baso % (Auto) 0.5 (0-2) % Lymph # (Auto) 4.1 (1.2-4.9) X10*3/uL [place] # (Auto) 0.7 (0.1-1.2) X10*3/uL Eos # (Auto) 0.3 (0.0-0.4) X10*3/uL Baso # (Auto) 0.1 (0.0-0.2) X10*3/uL Abs Immat Gran (auto) 0.03 (0.00-0.03) X10*3/uL Absolute Neuts (auto) 5.2 (2.0-8.3) X10*3/uL Absolute Nucleated RBC 0.000 (0.0-0.012) X10*3/uL Nucleated RBC % (auto) 0.0 (0.0-0.2) /100WBC Sodium 134 L (135-145) mmol/L Potassium 3.9 (3.3-5.1) mmol/l Chloride 102 (96-108) mmol/L Carbon Dioxide 22 (22-29) mmol/L Anion Gap 14 (12-20) BUN 10 (9-16) mg/dL Creatinine 1.05 (0.5-1.4) mg/dL Estim Creat Clear Calc 50.7 Estimated GFR 55 POC Glucose 330 H (60-115) mg/dL Random Glucose 337 H (60-115) mg/dL Calcium 8.5 (8.4-10.2) mg/dL Total Bilirubin 0.4 (0.0-1.0) mg/dL AST 14 (5-31) U/L ALT 25 (0-31) U/L Alkaline Phosphatase 105 (39-117) U/L Total Protein 6.4 L (6.5-8.0) g/dL Albumin 3.8 (3.5-5.0) g/dL Lipase 9 (8-78) U/L Discharge Plan Discharge Clinical Impression: Non-small cell carcinoma of left lung, stage 4, Inadequate pain control Patient Disposition: Home, Self-Care Instructions: Medication Safety for Older Adults (ED) Additional Instructions: 1. Resume all home medications as prescribed. 2. Please discuss better pain control with your providers, either Dr. Garcia or your primary care provider for which you have a follow-up appointment next week. The patient and/or family acknowledge understanding of results (as applicable), diagnosis, treatment plan, need for follow up, and symptoms that should prompt a return to the emergency room. Prescriptions: No Action Toujeo SoloStar U-300 Insulin 300 unit/mL (1.5 mL) insulin pen 30 unit subcut BEDTIME 30 Days Qty: 9 RF: 4 insulin aspart U-100 [Novolog Flexpen U-100 Insulin] 100 unit/mL (3 mL) insulin pen See Rx Instructions subcut .4 times a day 30 Days Qty: 30 RF: 4 (DME) blood-glucose meter [FreeStyle Lite Meter] Kit See Rx Instructions .ROUTE .MEDSUPPLY Qty: 1 RF: 0 (DME) FreeStyle Test Strip See Rx Instructions .ROUTE .MEDSUPPLY Qty: 150 RF: 6 (DME) lancets [FreeStyle Lancets] 28 gauge misc See Rx Instructions .ROUTE .MEDSUPPLY Qty: 150 RF: 6 oxycodone 20 mg Tablet 20 mg PO Q4H PRN (Reason: Pain (Scale Score 7-10)) RF: 0 morphine 30 mg Tablet Extended Release 30 mg PO Q12H RF: 0 cefuroxime axetil 500 mg tablet 500 mg PO BID 10 Days Qty: 10 RF: 0 oxycodone 10 mg tablet 10 mg PO Q6H PRN (Reason: pain) Qty: 14 RF: 0 clonidine HCl 0.1 mg tablet 0.1 mg PO BEDTIME RF: 0 alprazolam 1 mg tablet 1 mg PO TID RF: 0 hydroxyzine pamoate 50 mg capsule 50 mg PO Q8H PRN (Reason: Anxiety) RF: 0 bupropion HCl 300 mg tablet extended release 24 hr 300 mg PO DAILY RF: 0 polyethylene glycol 3350 17 gram powder in packet 17 g PO DAILY RF: 0 levetiracetam 500 mg tablet 500 mg PO BID RF: 0 sucralfate 1 gram tablet 1 g PO BEDTIME RF: 0 venlafaxine 150 mg capsule,extended release 24hr 150 mg PO DAILY RF: 0 meclizine 25 mg tablet 25 mg PO Q8H PRN (Reason: Dizziness) RF: 0 omeprazole 20 mg capsule,delayed release(DR/EC) 20 mg PO BID RF: 0 zolpidem 10 mg tablet 10 mg PO BEDTIME RF: 0 scopolamine base [Transderm-Scop] 1 mg over 3 days patch 3 day 1 mg transdermal Q3D RF: 0 mesalamine 800 mg tablet,delayed release (DR/EC) 800 mg PO TID RF: 0 Tresiba FlexTouch U-200 200 unit/mL (3 mL) insulin pen 20 unit subcut DAILY 30 Days Qty: 3 RF: 6 (DME) pen needle, diabetic [BD Mireya 2nd Gen Pen Needle] 32 gauge x 5/32 needle See Rx Instructions .ROUTE .MEDSUPPLY Qty: 400 RF: 4 (DME) OneTouch Verio test strips Strip See Rx Instructions .ROUTE .MEDSUPPLY Qty: 150 RF: 6 (DME) lancets [OneTouch Delica Lancets] 33 gauge misc See Rx Instructions .ROUTE .MEDSUPPLY Qty: 150 RF: 6 prednisone 20 mg tablet 20 mg PO DAILY 30 Days Qty: 30 RF: 1 Referrals: Alyson Garcia MD [Physician] - 2 days ( Patient needs more appropriate pain control for her extensive cancer.)
[2019-12-30] MEDS: 0.9 % Sodium Chloride 1,000 ML 1000 ML IV (23:04)
[2019-12-30 23:08] LABS: Glucose, Whole Blood 330 mg/dL (60-115)
[2019-12-30 23:24] VITALS: BP 130/74; PULSE 56; RESP 15; O2SAT 98
[2019-12-30 23:36] LABS: Basophils Absolute Auto 0.1 X10*3/uL (0.0-0.2); Basophils Percent Auto 0.5 % (0-2); Eosinophils Absolute Auto 0.3 X10*3/uL (0.0-0.4); Eosinophils Percent Auto 2.6 % (0-4); Hematocrit 34.7 % (37-47); Hemoglobin 11.3 g/dl (12.0-16.0); Imm Gran Abs Auto 0.03 X10*3/uL (0.00-0.03); Imm Gran Pct Auto 0.3 % (0.0-0.4); Lymphocytes Absolute Auto 4.1 X10*3/uL (1.2-4.9); Lymphocytes Percent Auto 39.6 % (20-40); MANUAL DIFF FLAG NO; Mean Corpuscular HGB Conc 32.6 g/dl (31.0-35.0); Mean Corpuscular Hemoglobin 29.3 pg (27.0-33.0); Mean Corpuscular Volume 89.9 fL (80-98); Mean Platelet Volume 12.1 fL (9.4-12.3); Monocytes Absolute Auto 0.7 X10*3/uL (0.1-1.2); Neutrophils Absolute Auto 5.2 X10*3/uL (2.0-8.3); Platelet Count 191 X10*3/uL (160-400); Red Blood Count 3.86 X10*6/uL (4.20-5.50); White Blood Count 10.3 X10*3/uL (4.8-10.8)
[2019-12-31] VITALS: PULSE 54; RESP 16; O2SAT 98
[2019-12-31 00:03] LABS: Alanine Aminotransferase 25 U/L (0-31); Albumin Level 3.8 g/dL (3.5-5.0); Alkaline Phosphatase 105 U/L (39-117); Anion Gap 14 (12-20); Aspartate Amino Transferase 14 U/L (5-31); Bilirubin Total 0.4 mg/dL (0.0-1.0); Blood Urea Nitrogen 10 mg/dL (9-16); Calcium 8.5 mg/dL (8.4-10.2); Carbon Dioxide 22 mmol/L (22-29); Chloride 102 mmol/L (96-108); Creatinine Clr Calc Pharmacy 50.7; Estimated Glomerular Filt Rate 55; Glucose Random 337 mg/dL (60-115); Lipase 9 U/L (8-78); Potassium 3.9 mmol/l (3.3-5.1); Sodium 134 mmol/L (135-145); Total Protein 6.4 g/dL (6.5-8.0)
[2019-12-31] MEDS: HYDROmorphone HCl 1 MG/ML SYRINGE IVPUSH (01:30)
[2019-12-31 01:41] VITALS: BP 126/72; PULSE 58; RESP 16; O2SAT 98
== END 2019-12-31 03:01 | disposition home or self-care (01) ==
PROVIDERS: Emergency Provider Student in an Organized Health Care Education/Training Program
DX: C34.92 Malignant neoplasm of unspecified part of left bronchus or lung (principal); G89.4 Chronic pain syndrome; E11.9 Type 2 diabetes mellitus without complications; E27.49 Other adrenocortical insufficiency; J45.909 Unspecified asthma, uncomplicated; Z79.4 Long term (current) use of insulin; Z79.891 Long term (current) use of opiate analgesic; F17.210 Nicotine dependence, cigarettes, uncomplicated
CPT/HCPCS: 36415; 80053; 82947; 83690; 85025; 96361; 96374; 99284; J1170

== ENCOUNTER → 2020-01-13 11:52 | Outpatient (BNVA) | payer OTHER, SELFPAY | PROVIDERS: PCP Internal Medicine; Referring Provider Internal Medicine; Visit Provider Dietitian, Registered | DX: Z76.89 Persons encountering health services in other specified circumstances (principal) ==

== ENCOUNTER 2020-02-01 18:17 | Emergency (ER) | payer OTHER, SELFPAY ==
[2020-02-01 18:36] VITALS: BP 121/87; PULSE 105; RESP 18; TEMP 37.2; O2SAT 98; BMI 24.7
--- NOTE | 2020-02-01 18:42 | ED.HA ---
HPI - Headache General Chief Complaint: Headache Stated Complaint: HEADACHE Time Seen by Provider: 02/01/20 18:42 Source: patient Mode of arrival: ambulatory Limitations: no limitations History of Present Illness HPI Narrative: patient history of migraine headaches in the past on morphine and oxycodone complaining of increased headache for last 2 days with photophobia and nausea no vomiting no fever no head injury patient with history of lung cancer stage IV at the CT scan of the head in 10/28- for any lesions. Also patient complaining of redness and itching in both eyes left> right MD elicited complaint: headache and migraine Onset (ago): day(s) (2) Onset description: gradually Location: frontal Severity: mild Quality & Timing: dull, steady and similar to previous headaches Exacerbating factors: light and noise Relieving factors: nothing Context: occurred at rest Treatments prior to arrival: prescription analgesic Related Data Home Medications Medication Instructions Recorded Confirmed alprazolam 1 mg PO TID 12/17/19 12/22/19 bupropion HCl 300 mg PO DAILY 12/17/19 12/22/19 clonidine HCl 0.1 mg PO BEDTIME 12/17/19 12/22/19 hydroxyzine pamoate 50 mg PO Q8H PRN 12/17/19 12/22/19 levetiracetam 500 mg PO BID 12/17/19 12/22/19 meclizine 25 mg PO Q8H PRN 12/17/19 12/22/19 mesalamine 800 mg PO TID 12/17/19 12/22/19 omeprazole 20 mg PO BID 12/17/19 12/22/19 polyethylene glycol 3350 17 g PO DAILY 12/17/19 12/22/19 scopolamine base [Transderm-Scop] 1 mg TRANSDERMAL Q3D 12/17/19 12/22/19 sucralfate 1 g PO BEDTIME 12/17/19 12/22/19 venlafaxine 150 mg PO DAILY 12/17/19 12/22/19 zolpidem 10 mg PO BEDTIME 12/17/19 12/22/19 morphine 30 mg PO Q12H 12/22/19 01/28/20 oxycodone 20 mg PO Q4H PRN 12/22/19 01/28/20 Previous Rx's Medication Instructions Recorded blood sugar diagnostic #150 ea 12/18/19 insulin degludec 200 unit/mL (3 20 unit SUBCUT DAILY 30 Days #3 ml 12/18/19 mL) subcutaneous pen lancets 33 gauge #150 ea 12/18/19 pen needle, diabetic 32 gauge x #400 ea 12/18/19 5/32 prednisone 20 mg tablet 20 mg PO DAILY 30 Days #30 tab 12/18/19 cefuroxime axetil 500 mg PO BID 10 Days #10 tab 12/24/19 oxycodone 10 mg PO Q6H PRN #14 tab 12/24/19 insulin aspart U-100 100 unit/mL See Rx Instructions SUBCUT .4 12/25/19 (3 mL) subcutaneous pen times a day 30 Days #30 ml insulin glargine U-300 conc 300 30 unit SUBCUT BEDTIME 30 Days #9 12/25/19 unit/mL (1.5 mL) subcutaneous pen ml blood sugar diagnostic #150 ea 12/28/19 blood-glucose meter #1 ea 12/28/19 lancets 28 gauge #150 ea 12/28/19 blood sugar diagnostic #150 ea 01/01/20 ondansetron HCl [Zofran] 8 mg PO Q6H PRN #50 tab 01/01/20 ketorolac [Acular] 1 drp OPHTHALMIC (EYE) QID #3 ml 02/01/20 oxycodone 5 mg PO Q6H PRN #14 tab 02/01/20 Allergies Allergy/AdvReac Type Severity Reaction Status Date / Time acetaminophen [Tylenol] AdvReac Unknown Abdominal Verified 02/01/20 18:39 Pain ibuprofen AdvReac Unknown Abdominal Verified 02/01/20 18:39 Pain senna AdvReac Unknown Headache Verified 02/01/20 18:39 Review of Systems Review of Systems: REVIEW OF SYSTEMS: Pertinent positives and negatives are stated above in the history. GEN: no fevers, chills, fatigue HEENT: no nasal congestion, sore throat, ear pain redness of both eyes NEURO: no , dizziness, focal weakness PULM: no cough, shortness of breath CV: no chest pain, palpitations, LE edema ABD: no abdominal pain, nausea, vomiting, diarrhea : no dysuria, urgency, frequency SKIN: no rash ROS otherwise negative x 10 PMFSH Past Medical History Medical History Adrenal insufficiency Adrenal insufficiency due to cancer therapy Aftercare following left shoulder joint replacement surgery Asthma COPD (chronic obstructive pulmonary disease) Depression Hypothyroidism Multinodular goiter Newly diagnosed diabetes Non-small cell carcinoma of left lung, stage 4 Opioid abuse Pancreatitis Radiation-induced esophagitis Subclinical hyperthyroidism Surgical History History of Hx of blepharoplasty Status post cholecystectomy Family History Family History Father Pancreatic cancer Mother Diabetes Brother Diabetes Sister Diabetes Social History Social History Alcohol intake: never Smoking Status: Light tobacco smoker Tobacco Type: Cigarette Cigarettes Per Day: 1 Years Smoked: 45 Use of substances other than those prescribed or required for medical reasons: No Advance Directives: No Advance Directives Information Provided: Yes service: No Current occupational status: disabled Physical Exam Vital Signs: Vital Signs: Last Vital Signs Temp 98.3 F 02/01/20 19:22 Pulse 97 02/01/20 20:26 Resp 18 02/01/20 20:26 BP 138/78 02/01/20 20:26 Pulse Ox 100 02/01/20 20:26 Body Mass Index 24.7 VITAL SIGNS: Reviewed. GENERAL: Well developed, well nourished, in mild distress. HEAD: Normocephalic/atraumatic, EYES: PERRLA No pallor/icterus noted , chemosis present bilateral clear discharge OROPHARYNX: Oral mucosa moist no oral lesions NECK: Supple, no adenopathy LUNGS: Normal breath sounds. No adventitious sounds or accessory muscle use CARDIOVASCULAR: Regular rate and rhythm without noted murmurs, no JVD or lower extremity edema. ABDOMEN: Soft, non-tender, non-distended with normal bowel sounds. No rigidity. No guarding. No palpable masses or hernias noted MUSCULOSKELETAL: No tenderness, deformities, EXTREMITIES: No cyanosis or edema. SKIN: no rashes, ulcerations, jaundice, pallor, or petechiae NEUROLOGIC: Alert and oriented x 3. Strength and sensation to light touch were grossly intact normal speech MDM - Headache MDM Narrative Medical decision making narrative: patient with chronic headache and opiate dependence per record she supposed to be on morphine and oxycodone but patient saying that she is not taking them and waiting for the new provider to provide her a prescription. Will give her a prescription of oxycodone for now advised to follow with [facility] , at this time patient is feeling much better will discharge her home Discharge Plan Discharge Clinical Impression: Migraine, Acute allergic conjunctivitis Patient Disposition: Home, Self-Care Instructions: Migraine Headache (ED), Conjunctivitis (ED) Additional Instructions: continue your pain medications. Eyedrops as advised. Follow-up with your primary care doctor Prescriptions: New ketorolac [Acular] 0.5 % drops 1 drp ophthalmic (eye) QID Qty: 3 RF: 0 oxycodone 5 mg tablet 5 mg PO Q6H PRN (Reason: pain) Qty: 14 RF: 0 No Action Toujeo SoloStar U-300 Insulin 300 unit/mL (1.5 mL) insulin pen 30 unit subcut BEDTIME 30 Days Qty: 9 RF: 4 insulin aspart U-100 [Novolog Flexpen U-100 Insulin] 100 unit/mL (3 mL) insulin pen See Rx Instructions subcut .4 times a day 30 Days Qty: 30 RF: 4 (DME) blood-glucose meter [FreeStyle Lite Meter] Kit See Rx Instructions .ROUTE .MEDSUPPLY Qty: 1 RF: 0 (DME) FreeStyle Test Strip See Rx Instructions .ROUTE .MEDSUPPLY Qty: 150 RF: 6 (DME) lancets [FreeStyle Lancets] 28 gauge misc See Rx Instructions .ROUTE .MEDSUPPLY Qty: 150 RF: 6 (DME) FreeStyle Lite Strips Strip See Rx Instructions .ROUTE .MEDSUPPLY Qty: 150 RF: 6 oxycodone 20 mg Tablet 20 mg PO Q4H PRN (Reason: Pain (Scale Score 7-10)) RF: 0 morphine 30 mg Tablet Extended Release 30 mg PO Q12H RF: 0 cefuroxime axetil 500 mg tablet 500 mg PO BID 10 Days Qty: 10 RF: 0 oxycodone 10 mg tablet 10 mg PO Q6H PRN (Reason: pain) Qty: 14 RF: 0 clonidine HCl 0.1 mg tablet 0.1 mg PO BEDTIME RF: 0 alprazolam 1 mg tablet 1 mg PO TID RF: 0 hydroxyzine pamoate 50 mg capsule 50 mg PO Q8H PRN (Reason: Anxiety) RF: 0 bupropion HCl 300 mg tablet extended release 24 hr 300 mg PO DAILY RF: 0 polyethylene glycol 3350 17 gram powder in packet 17 g PO DAILY RF: 0 levetiracetam 500 mg tablet 500 mg PO BID RF: 0 sucralfate 1 gram tablet 1 g PO BEDTIME RF: 0 venlafaxine 150 mg capsule,extended release 24hr 150 mg PO DAILY RF: 0 meclizine 25 mg tablet 25 mg PO Q8H PRN (Reason: Dizziness) RF: 0 omeprazole 20 mg capsule,delayed release(DR/EC) 20 mg PO BID RF: 0 zolpidem 10 mg tablet 10 mg PO BEDTIME RF: 0 scopolamine base [Transderm-Scop] 1 mg over 3 days patch 3 day 1 mg transdermal Q3D RF: 0 mesalamine 800 mg tablet,delayed release (DR/EC) 800 mg PO TID RF: 0 ondansetron HCl [Zofran] 4 mg Tablet 8 mg PO Q6H PRN (Reason: Nausea And Vomiting) Qty: 50 RF: 6 Tresiba FlexTouch U-200 200 unit/mL (3 mL) insulin pen 20 unit subcut DAILY 30 Days Qty: 3 RF: 6 (DME) pen needle, diabetic [BD Mireya 2nd Gen Pen Needle] 32 gauge x 5/32 needle See Rx Instructions .ROUTE .MEDSUPPLY Qty: 400 RF: 4 (DME) OneTouch Verio test strips Strip See Rx Instructions .ROUTE .MEDSUPPLY Qty: 150 RF: 6 (DME) lancets [OneTouch Delica Lancets] 33 gauge misc See Rx Instructions .ROUTE .MEDSUPPLY Qty: 150 RF: 6 prednisone 20 mg tablet 20 mg PO DAILY 30 Days Qty: 30 RF: 1 Interventions: ED Discharge Assessment Last Done: 02/01/20 20:25 Discharge Date/Time: 02/01/20 20:29
[2020-02-01 19:22] VITALS: BP 125/86; PULSE 97; RESP 18; TEMP 36.8; O2SAT 99
[2020-02-01] MEDS: 0.9 % Sodium Chloride 1,000 ML 999 ML IVCONT (19:26)
[2020-02-01 19:27] VITALS: RESP 18
[2020-02-01] MEDS: diphenhydrAMINE HCL 50 MG/ML VIAL 25 MG IVPUSH (19:27)
[2020-02-01] MEDS: HYDROmorphone HCl 2 MG/ML VIAL IVPUSH (19:27)
[2020-02-01] MEDS: ondansetron HCL 4 MG/2 ML VIAL IVPUSH (19:27)
[2020-02-01 20:26] VITALS: BP 138/78; PULSE 97; RESP 18; O2SAT 100
== END 2020-02-01 20:29 | disposition home or self-care (01) ==
PROVIDERS: Emergency Provider Internal Medicine
DX: G43.909 Migraine, unspecified, not intractable, without status migrainosus (principal); H10.33 Unspecified acute conjunctivitis, bilateral; Z79.899 Other long term (current) drug therapy; F17.210 Nicotine dependence, cigarettes, uncomplicated; Z71.6 Tobacco abuse counseling
CPT/HCPCS: 96361; 96374; 96375; 99284; J1170; J1200; J2405

== ENCOUNTER → 2020-02-24 12:05 | Outpatient (BNVA) | payer OTHER, SELFPAY | PROVIDERS: Visit Provider Dietitian, Registered | DX: Z76.89 Persons encountering health services in other specified circumstances (principal) ==

== ENCOUNTER → 2020-03-08 12:59 | Outpatient (BNVA) | payer OTHER, SELFPAY | PROVIDERS: Visit Provider Family Medicine Adult Medicine | DX: M79.7 Fibromyalgia (principal); Z85.118 Personal history of other malignant neoplasm of bronchus and lung; F11.99 Opioid use, unspecified with unspecified opioid-induced disorder | CPT/HCPCS: 99212 ==

== ENCOUNTER → 2020-03-24 09:34 | Outpatient (BNVA) | payer OTHER, SELFPAY | PROVIDERS: Visit Provider Internal Medicine Endocrinology, Diabetes & Metabolism | DX: E11.9 Type 2 diabetes mellitus without complications (principal); E27.3 Drug-induced adrenocortical insufficiency; E05.90 Thyrotoxicosis, unspecified without thyrotoxic crisis or storm; E04.2 Nontoxic multinodular goiter | CPT/HCPCS: Q3014 ==

== ENCOUNTER 2020-04-01 13:32 | Inpatient (IN) | payer OTHER, SELFPAY ==
[2020-04-01 13:37] VITALS: BP 102/62; PULSE 75; RESP 18; TEMP 36.4; O2SAT 95
[2020-04-01 13:42] VITALS: BP 107/71; PULSE 73; RESP 16; TEMP 36.4; O2SAT 95; BMI 23.0
--- NOTE | 2020-04-01 14:17 | CT_ITS ---
EXAMINATION: CT ABDOMEN AND PELVIS WITH CONTRAST CLINICAL INFORMATION: Left lower quadrant pain. History of colitis. COMPARISON: Previous CT of the abdomen and pelvis October 2019 TECHNIQUE: Multidetector volumetric images were obtained from the superior aspect of the liver through the pubic symphysis following administration 85 mL of Omnipaque 350 intravenous contrast. Sagittal and coronal reformatted images were obtained on the technologist's workstation. Oral contrast: Yes This CT examination was performed using dose optimization techniques as appropriate, variously including the following: *Automated exposure control *Adjustment of mA and/or kV according to patient size (this includes techniques or standardized protocols for targeted exams where dose is matched to indication/reason for exam; i.e. extremities or head) *Use of iterative reconstruction technique DLP: 811 mGy-cm FINDINGS: LUNG BASES: The visualized lung bases are unremarkable. LIVER, GALLBLADDER, AND BILIARY TREE: The liver is low in attenuation suggestive of fatty infiltration. No focal liver lesion is seen. The gallbladder has been removed. There is no biliary duct dilatation. PANCREAS: Unremarkable. SPLEEN: Unremarkable. ADRENAL GLANDS: Unremarkable. KIDNEYS AND URETERS: The kidneys are normal in size, shape, and attenuation. No hydronephrosis, hydroureter, or calculi seen. No perinephric stranding. BLADDER: Unremarkable. GASTROINTESTINAL TRACT: There is wall thickening of the left colon and sigmoid colon suggestive of colitis. The more proximal colon appears distended and filled with stool questionable for mild partial obstruction. No evidence of perforation or abscess is seen. Small and large bowel is otherwise unremarkable. The appendix is unremarkable. ABDOMINAL WALL: No significant hernia is appreciated. LYMPH NODES: There is small bowel mesentery and retroperitoneal lymphadenopathy. Small bowel mesentery lymph nodes are upper normal in size. There is no ascites. VASCULAR: Unremarkable. PELVIC VISCERA: There is left ovarian vein is prominent questionable for pelvic congestion. OSSEOUS STRUCTURES: There are degenerative changes of the spine. CT/CT abdomen pelvis w con IMPRESSION: Colitis of the distal colon. The more proximal colon is slightly dilated and filled with stool questionable for partial obstruction. Prominent left ovarian vessels questionable for pelvic congestion. Fatty liver.
--- NOTE | 2020-04-01 14:17 | CT_ITS ---
EXAMINATION: HEAD AND CERVICAL SPINE CT WITHOUT CONTRAST CLINICAL INFORMATION: Fall. Pain. COMPARISON: Previous head CT most recent December [address] most recent October 2019 TECHNIQUE: Axial images through the head and cervical spine without contrast. Sagittal and coronal reconstructions on the technologist workstation were performed. Patient dose 665+3 1 8 mg/cm This CT examination was performed using dose optimization techniques as appropriate, variously including the following: *Automated exposure control *Adjustment of mA and/or kV according to patient size (this includes techniques or standardized protocols for targeted exams where dose is matched to indication/reason for exam; i.e. extremities or head) *Use of iterative reconstruction technique FINDINGS: Head CT: There is no evidence of an extra-axial collection. There is no evidence of intra-axial or extra-axial hemorrhage. The ventricles and extra-axial CSF spaces are appropriate. Byers-white matter differentiation is normal. No mass, mass effect or infarct is seen. Review of bone windows is normal. Visualized paranasal sinuses, mastoid air cells and middle ears are clear. Cervical spine CT: Bone alignment is normal. No fracture or dislocation is seen. There is evidence of mild degenerative spondylosis from C3-C4 to C5-C6. Disc spaces are normal. Prevertebral soft tissues are normal. There are emphysematous changes at the lung apices. CT/CT cervical spine wo con IMPRESSION: Head CT: Unremarkable exam. Cervical spine CT: Mild degenerative changes.
--- NOTE | 2020-04-01 14:18 | XR_ITS ---
EXAMINATION: XR CHEST CLINICAL INFORMATION: Near syncope COMPARISON: Previous chest x-ray most recent December 2019 TECHNIQUE: 2 views of the chest were obtained. FINDINGS: The cardiac and mediastinal contours are stable. The lungs are clear. There is no pleural effusion or pneumothorax. Bony structures are unremarkable. XR/XR chest 2V IMPRESSION: No evidence for acute disease in the chest.
--- NOTE | 2020-04-01 14:18 | ECG_ITS ---
Test Reason : WEAKNESS Blood Pressure : / mmHG Vent. Rate : 072 BPM Atrial Rate : 072 BPM P-R Int : 174 ms QRS Dur : 066 ms QT Int : 386 ms P-R-T Axes : 042 027 017 degrees QTc Int : 422 ms Normal sinus rhythm Possible Left atrial enlargement Borderline ECG When compared with ECG of 22-DEC-2019 17:27, No significant change was found Referred By: Meredith Thomason Electronically Signed By:YUE WATTS
--- NOTE | 2020-04-01 14:21 | ED_ITS ---
HPI - General Adult General Chief complaint: Fall Stated complaint: fall Time Seen by Provider: 04/01/20 13:34 Source: patient and EMS Mode of arrival: EMS Limitations: no limitations History of Present Illness HPI narrative: 54-year-old female with a past medical history of opiate use disorder followed by pain management, asthma, arthritis, DM, radiation induced esophagitis, colitis on mesalamine, fibromyalgia, hyperthyroidism, adrenal insufficiency on chronic pred, lung adenocarcinoma status post radiation cur rently on nivolumab biweekly (last dose yesterday) here with multiple complaints. Patient tells me she has dizzy spells which have been diagnosed as vertigo. She does do that today she had episode and she fell to the ground hitting the back of her head. ?brief LOC. She is here complaining of head and neck pain. Also complaining of feeling generally weak. Also complaining of left lower abdominal pain which tells me is chronic and has been occurring for the last few months. She has history of colitis and has intermittent rectal bleeding. No nausea, vomiting, fevers, chills. Related Data Home Medications Medication Instructions Recorded Confirmed alprazolam 1 mg PO TID PRN 12/17/19 04/01/20 bupropion HCl 300 mg PO DAILY 12/17/19 04/01/20 clonidine HCl 0.1 mg PO BEDTIME PRN 12/17/19 04/01/20 hydroxyzine pamoate 50 mg PO Q8H PRN 12/17/19 04/01/20 levetiracetam 500 mg PO BID 12/17/19 04/01/20 mesalamine 1,600 mg PO TID 12/17/19 04/01/20 omeprazole 20 mg PO BID 12/17/19 04/01/20 sucralfate 1 g PO BEDTIME 12/17/19 04/01/20 nivolumab 240 mg/24 mL intravenous 240 mg IV Q2W 03/08/20 04/01/20 solution venlafaxine 150 mg 150 mg PO DAILY 03/08/20 04/01/20 capsule,extended release 24 hr zolpidem 10 mg tablet 10 mg PO BEDTIME PRN 03/08/20 04/01/20 Previous Rx's Medication Instructions Recorded blood sugar diagnostic #150 ea 12/18/19 lancets 33 gauge #150 ea 10/09/20 pen needle, diabetic 32 gauge x #400 ea 12/18/19 blood sugar diagnostic #150 ea 12/28/19 blood-glucose meter #1 ea 12/28/19 lancets 28 gauge #150 ea 12/28/19 blood sugar diagnostic #150 ea 01/01/20 ketorolac [Acular] 1 drp OPHTHALMIC (EYE) QID #3 ml 02/01/20 insulin aspart U-100 100 unit/mL 5 unit SUBCUT TID 30 Days #15 ml 03/24/20 (3 mL) subcutaneous pen insulin degludec 200 unit/mL (3 20 unit SUBCUT DAILY 30 Days #3 ml 03/24/20 mL) subcutaneous pen prednisone 10 mg tablet 15 mg PO DAILY 30 Days #45 tab 03/24/20 Allergies Allergy/AdvReac Type Severity Reaction Status Date / Time acetaminophen [Tylenol] AdvReac Unknown Abdominal Verified 03/08/20 13:08 Pain ibuprofen AdvReac Unknown Abdominal Verified 03/08/20 13:08 Pain senna AdvReac Unknown Headache Verified 03/08/20 13:08 Review of Systems Review of Systems: Yes all other systems are reviewed and are negative Constitutional: Constitutional: Reports no additional constitutional complaints, Denies body ache(s), Denies chills, Denies fever(s), Reports headache(s) and Reports weakness Eyes: Eyes: Reports no additional eye complaints and Denies change in vision ENT: Reports system reviewed and no additional complaints, except as documented, Reports dizziness, Reports headache(s), Denies nasal congestion, Denies nasal discharge and Reports neck pain Cardiovascular: Cardiovascular: Reports no additional cardiovascular complaints, Denies chest pain, Denies leg edema and Denies dyspnea Respiratory: Respiratory: Reports no additional respiratory complaints, Denies cough and Denies dyspnea Gastrointestinal: Gastrointestinal: Reports no additional gastrointestinal complaints, Reports abdominal pain, Reports hematochezia, Denies diarrhea, Denies nausea and Denies vomiting Genitourinary: Genitourinary: Reports no additional female genitourinary complaints and Denies urinary incontinence Musculoskeletal: Musculoskeletal: Reports no additional musculoskeletal complaints, Denies back pain, Denies arthralgias, Denies joint swelling, Reports neck pain, Denies numbness and Denies tingling Integumentary/Breasts: Skin/Breast: Reports system reviewed and no additional complaints, except as docu and Denies rash Neurologic: Reports system reviewed and no additional complaints, except as documented, Denies Abnormal speech present, Reports dizziness, Reports headache(s), Denies numbness, Denies tingling and Reports weakness PMFSH Past Medical History Attestation statement: The following information was validated with the patient. Source: old records reviewed and nursing notes reviewed Medical History Adrenal insufficiency Adrenal insufficiency due to cancer therapy Aftercare following left shoulder joint replacement surgery Arthritis Asthma Colitis COPD (chronic obstructive pulmonary disease) Depression Fibromyalgia History of lung cancer Hypothyroidism Multinodular goiter Newly diagnosed diabetes Non-small cell carcinoma of left lung, stage 4 Opioid abuse Opioid use disorder Pancreatitis Radiation-induced esophagitis Subclinical hyperthyroidism Surgical History History of History of esophageal dilatation Hx of blepharoplasty Hx of shoulder surgery Status post cholecystectomy Family History Family History Father Pancreatic cancer Mother Diabetes Brother Diabetes Sister Diabetes Social History Social History (Updated 04/01/20 @ 18:58 by VIRGILIO Miranda) Household Members: None Alcohol intake: never Smoking Status: Current some day smoker Tobacco Type: Cigarette Cigarettes Per Day: 1 Years Smoked: 45 Smoked in Last 30 Days: Yes Use of substances other than those prescribed or required for medical reasons: No Advance Directives: No Advance Directives Information Provided: Yes service: No Current occupational status: disabled Physical Exam Vital Signs: Vital Signs: Last Vital Signs Temp 97.5 F 04/01/20 13:42 Pulse 78 04/01/20 14:23 Resp 16 04/01/20 13:42 BP 95/57 L 04/01/20 14:23 Pulse Ox 95 04/01/20 13:42 Body Mass Index 23.0 Const: General: cooperative, healthy appearing, comfortable and no acute distress Orientation/consciousness: patient oriented x3 Limitations: no limitations HENMT: Head: Yes normal to inspection Ears: hearing grossly normal bilaterally General nose exam: Normal external nose present Face and sinus: Yes normal facial exam Mouth: Normal oral and palatal mucosa present Throat: Yes posterior oropharynx normal Eyes: General: appearance normal, both eyes and all related structures Pupils: Equal, round and reactive pupils present Neck: Other: Midline tenderness. No step-offs or deformities full range of motion C collar in place Neck: Yes normal visual inspection Chest: Chest palpation & inspection: normal inspection of the chest Resp: Effort & Inspection: normal respiratory effort Auscultation: clear to auscultation bilaterally Cardio: Rate: regular rate Rhythm: regular rhythm Peripheral pulses: Peripheral pulses 2+ throughout GI: Inspection: Yes normal to inspection Palpation (GI): Soft to palpation and Tenderness to palpation present (GI) (LLQ no rebound or guarding) Auscultation: normal bowel sounds Rectal Exam - Female: visual inspection normal, normal sphincter tone and heme negative stool Back/Spine/Pelvis: Thoracic/Lumbar Spine: thoracic and lumbar spine normal to inspection Skin: General skin exam: no rashes or lesions noted Neuro: General: patient oriented x3, no focal motor deficits, normal sensation to monofilament and Unable to assess gait Cranial nerves: Yes CN's II-XII intact bilaterally, Yes Equal, round and reactive pupils present, Yes Bila terally intact EOM present, Yes Nystagmus not present, Yes Normal facial strength present, Yes Midline tongue present and Yes Normal gag reflex present Cognition (Neuro): normal cognition Speech: No Abnormal speech present Gait exam (Neuro): Unable to assess gait Motor exam (neuro): 5/5 motor strength present throughout Sensory Exam: Normal double simultaneous stimulation for sensation Coordination: [id number] test normal and [id number] test normal Extrem: General: Yes normal to inspection Course Course Course Narrative: 54-year-old female here with multiple complaints. The patient tells me that she had a fall after feeling dizzy and hit the back of her head and neck and now has pain there. ? brief LOC. Normal neurological exam. Virgilio leyva also complaining of left lower quadrant abdominal pain which she has had for months and has been seen by GI and diagnosed with colitis and IBS. She is currently on mesalamine. She is also complaining of bright red blood in the stool. Her rectal exam shows brown stool which is heme negative. Will send for occult. Also complaining of diffuse body pain. Patient seen by pain management and there was concern for narcotic-seeking behavior. Reviewed notes from pain management and Oncology and her primary care who concur. Will check labs, EKG, orthostatics, UA, CT head and neck and CT abdomen and pelvis. 1550-labs show hyperglycemia with a blood sugar of 674. No gap. Negative aceton e. Patient tells me that her sugars have been running high. She tells me that they been monitored by Dr. Garcia and endocrinology. She tells me that she is not currently taking any medication for her diabetes as this was stopped. She is also on chronic prednisone for adrenal insufficiency. Corrected sodium 138. Elevated lactic acid. No leukocytosis or fever. Likely secondary to dehydration and not underlying infection. 1600-CT concerning for Colitis of the distal colon. The more proximal colon is slightly dilated and filled with stool questionable for partial obstruction. Patient has continued left lower quadrant abdominal pain on exam. She has no nausea or vomiting. She has had this pain which has been chronic for several months but worsening over the last few days reportedly. More likely chronic and inflammatory, not likely from infectious cause. Call out to Dr. Arias from surgery to discuss. 1605-Dr Arias called back and will follow up on patient during inpatient sta y. CT head/neck negative. C collar cleared from patient. 1645-chest x-ray unremarkable. Orthostatics are positive. Fluids infusing. 1730-seen by Dr. Arias. Plan for clear liquids during hospital stay. Patient refused to give urine sample while she was here in the emergency department. She continues to complain of diffuse body pain and makes multiple requests for dilaudid. Offered alternatives which patient declined. Discussed with Dr Garcia. To admit for hyperglycemia, orthostatic hypotension. Discussed with Rosalva LACKEY who accepted admission. Medical Decision Making Medical Records Medical records reviewed: Yes I reviewed the patient's medical records. Lab Data Lab results reviewed: Yes I reviewed the patient's lab results. Result diagrams: 04/01/20 14:34 04/01/20 14:34 Labs: Lab Results 04/01/20 04/01/20 04/01/20 Range/Units 14:11 14:18 14:27 WBC (4.8-10.8) X10*3/uL RBC (4.20-5.50) X10*6/uL Hgb (12.0-16.0) g/dl Hct (37-47) % MCV (80-98) fL MCH (27.0-33.0) pg MCHC (31.0-35.0) g/dl RDW (11.0-16.0) % Plt Count (160-400) X10*3/uL MPV (9.4-12.3) fL Immature Gran % (Auto) (0.0-0.4) % Neut % (Auto) (45-73) % Lymph % (Auto) (20-40) % [place] % (Auto) (2-11) % Eos % (Auto) (0-4) % Baso % (Auto) (0-2) % Lymph # (Auto) (1.2-4.9) X10*3/uL [place] # (Auto) (0.1-1.2) X10*3/uL Eos # (Auto) (0.0-0.4) X10*3/uL Baso # (Auto) (0.0-0.2) X10*3/uL Abs Immat Gran (auto) (0.00-0.03) X10*3/uL Absolute Neuts (auto) (2.0-8.3) X10*3/uL Absolute Nucleated RBC (0.0-0.012) X10*3/uL Nucleated RBC % (auto) (0.0-0.2) /100WBC PT (10.8-13.0) SEC INR (0.9-1.1) VBG pH (7.32-7.43) VBG pCO2 mmHg VBG pO2 mmHg VBG HCO3 mmol/L VBG O2 Saturation % VBG Base Excess mmol/L Sodium (135-145) mmol/L Potassium (3.3-5.1) mmol/l Chloride (96-108) mmol/L Carbon Dioxide (22-29) mmol/L Anion Gap (12-20) BUN (9-16) mg/dL Creatinine (0.5-1.4) mg/dL Estim Creat Clear Calc Estimated GFR POC Glucose > 600 H* 568 H* (60-115) mg/dL Random Glucose (60-115) mg/dL Lactic Acid (0.5-2.0) mmol/L Lactic Acid Fup @ 2Hr (0.5-2.0) mmol/L Calcium (8.4-10.2) mg/dL Magnesium (1.6-2.6) mg/dL Total Bilirubin (0.0-1.0) mg/dL Direct Bilirubin (0.0-0.5) mg/dL AST (5-31) U/L ALT (0-31) U/L Alkaline Phosphatase (39-117) U/L Troponin I High Sens (<3.5-17.0) ng/L Total Protein (6.5-8.0) g/dL Albumin (3.5-5.0) g/dL Stool Occult Blood NEG (NEG) Acetone, Qual (Negative) COVID-19 (OZIEL) (Negative) COVID-19 Clin Com 04/01/20 04/01/20 04/01/20 Range/Units 14:33 14:34 14:34 WBC 11.7 H (4.8-10.8) X10*3/uL RBC 4.35 (4.20-5.50) X10*6/uL Hgb 12.5 (12.0-16.0) g/dl Hct 37.3 (37-47) % MCV 85.7 (80-98) fL MCH 28.7 (27.0-33.0) pg MCHC 33.5 (31.0-35.0) g/dl RDW 12.3 (11.0-16.0) % Plt Count 242 (160-400) X10*3/uL MPV 12.7 H (9.4-12.3) fL Immature Gran % (Auto) 0.4 (0.0-0.4) % Neut % (Auto) 72.5 (45-73) % Lymph % (Auto) 20.1 (20-40) % [place] % (Auto) 6.5 (2-11) % Eos % (Auto) 0.2 (0-4) % Baso % (Auto) 0.3 (0-2) % Lymph # (Auto) 2.3 (1.2-4.9) X10*3/uL [place] # (Auto) 0.8 (0.1-1.2) X10*3/uL Eos # (Auto) 0.0 (0.0-0.4) X10*3/uL Baso # (Auto) 0.0 (0.0-0.2) X10*3/uL Abs Immat Gran (auto) 0.05 H (0.00-0.03) X10*3/uL Absolute Neuts (auto) 8.4 H (2.0-8.3) X10*3/uL Absolute Nucleated RBC 0.000 (0.0-0.012) X10*3/uL Nucleated RBC % (auto) 0.0 (0.0-0.2) /100WBC PT (10.8-13.0) SEC INR (0.9-1.1) VBG pH (7.32-7.43) VBG pCO2 mmHg VBG pO2 mmHg VBG HCO3 mmol/L VBG O2 Saturation % VBG Base Excess mmol/L Sodium 129 L (135-145) mmol/L Potassium 4.9 D (3.3-5.1) mmol/l Chloride 94 L (96-108) mmol/L Carbon Dioxide 26 (22-29) mmol/L Anion Gap 14 (12-20) BUN 13 (9-16) mg/dL Creatinine 1.39 (0.5-1.4) mg/dL Estim Creat Clear Calc 38.3 Estimated GFR 40 POC Glucose (60-115) mg/dL Random Glucose 674 H* (60-115) mg/dL Lactic Acid 2.9 H* (0.5-2.0) mmol/L Lactic Acid Fup @ 2Hr (0.5-2.0) mmol/L Calcium 9.6 (8.4-10.2) mg/dL Magnesium 2.0 (1.6-2.6) mg/dL Total Bilirubin 0.6 (0.0-1.0) mg/dL Direct Bilirubin 0.2 (0.0-0.5) mg/dL AST 9 (5-31) U/L ALT 18 (0-31) U/L Alkaline Phosphatase 111 (39-117) U/L Troponin I High Sens (<3.5-17.0) ng/L Total Protein 7.2 (6.5-8.0) g/dL Albumin 4.3 (3.5-5.0) g/dL Stool Occult Blood (NEG) Acetone, Qual (Negative) COVID-19 (OZIEL) (Negative) COVID-19 Clin Com 04/01/20 04/01/20 04/01/20 Range/Units 14:34 14:34 14:34 WBC (4.8-10.8) X10*3/uL RBC (4.20-5.50) X10*6/uL Hgb (12.0-16.0) g/dl Hct (37-47) % MCV (80-98) fL MCH (27.0-33.0) pg MCHC (31.0-35.0) g/dl RDW (11.0-16.0) % Plt Count (160-400) X10*3/uL MPV (9.4-12.3) fL Immature Gran % (Auto) (0.0-0.4) % Neut % (Auto) (45-73) % Lymph % (Auto) (20-40) % [place] % (Auto) (2-11) % Eos % (Auto) (0-4) % Baso % (Auto) (0-2) % Lymph # (Auto) (1.2-4.9) X10*3/uL [place] # (Auto) (0.1-1.2) X10*3/uL Eos # (Auto) (0.0-0.4) X10*3/uL Baso # (Auto) (0.0-0.2) X10*3/uL Abs Immat Gran (auto) (0.00-0.03) X10*3/uL Absolute Neuts (auto) (2.0-8.3) X10*3/uL Absolute Nucleated RBC (0.0-0.012) X10*3/uL Nucleated RBC % (auto) (0.0-0.2) /100WBC PT 12.9 (10.8-13.0) SEC INR 1.1 (0.9-1.1) VBG pH (7.32-7.43) VBG pCO2 mmHg VBG pO2 mmHg VBG HCO3 mmol/L VBG O2 Saturation % VBG Base Excess mmol/L Sodium (135-145) mmol/L Potassium (3.3-5.1) mmol/l Chloride (96-108) mmol/L Carbon Dioxide (22-29) mmol/L Anion Gap (12-20) BUN (9-16) mg/dL Creatinine (0.5-1.4) mg/dL Estim Creat Clear Calc Estimated GFR POC Glucose (60-115) mg/dL Random Glucose (60-115) mg/dL Lactic Acid (0.5-2.0) mmol/L Lactic Acid Fup @ 2Hr (0.5-2.0) mmol/L Calcium (8.4-10.2) mg/dL Magnesium (1.6-2.6) mg/dL Total Bilirubin (0.0-1.0) mg/dL Direct Bilirubin (0.0-0.5) mg/dL AST (5-31) U/L ALT (0-31) U/L Alkaline Phosphatase (39-117) U/L Troponin I High Sens < 3.5 (<3.5-17.0) ng/L Total Protein (6.5-8.0) g/dL Albumin (3.5-5.0) g/dL Stool Occult Blood (NEG) Acetone, Qual Negative (Negative) COVID-19 (OZIEL) (Negative) COVID-19 Clin Com 04/01/20 04/01/20 04/01/20 Range/Units 17:03 17:03 17:10 WBC (4.8-10.8) X10*3/uL RBC (4.20-5.50) X10*6/uL Hgb (12.0-16.0) g/dl Hct (37-47) % MCV (80-98) fL MCH (27.0-33.0) pg MCHC (31.0-35.0) g/dl RDW (11.0-16.0) % Plt Count (160-400) X10*3/uL MPV (9.4-12.3) fL Immature Gran % (Auto) (0.0-0.4) % Neut % (Auto) (45-73) % Lymph % (Auto) (20-40) % [place] % (Auto) (2-11) % Eos % (Auto) (0-4) % Baso % (Auto) (0-2) % Lymph # (Auto) (1.2-4.9) X10*3/uL [place] # (Auto) (0.1-1.2) X10*3/uL Eos # (Auto) (0.0-0.4) X10*3/uL Baso # (Auto) (0.0-0.2) X10*3/uL Abs Immat Gran (auto) (0.00-0.03) X10*3/uL Absolute Neuts (auto) (2.0-8.3) X10*3/uL Absolute Nucleated RBC (0.0-0.012) X10*3/uL Nucleated RBC % (auto) (0.0-0.2) /100WBC PT (10.8-13.0) SEC INR (0.9-1.1) VBG pH 7.30 L (7.32-7.43) VBG pCO2 60 mmHg VBG pO2 46 mmHg VBG HCO3 30 mmol/L VBG O2 Saturation 69.0 % VBG Base Excess 2.5 mmol/L Sodium (135-145) mmol/L Potassium (3.3-5.1) mmol/l Chloride (96-108) mmol/L Carbon Dioxide (22-29) mmol/L Anion Gap (12-20) BUN (9-16) mg/dL Creatinine (0.5-1.4) mg/dL Estim Creat Clear Calc Estimated GFR POC Glucose (60-115) mg/dL Random Glucose (60-115) mg/dL Lactic Acid (0.5-2.0) mmol/L Lactic Acid Fup @ 2Hr 2.9 H* (0.5-2.0) mmol/L Calcium (8.4-10.2) mg/dL Magnesium (1.6-2.6) mg/dL Total Bilirubin (0.0-1.0) mg/dL Direct Bilirubin (0.0-0.5) mg/dL AST (5-31) U/L ALT (0-31) U/L Alkaline Phosphatase (39-117) U/L Troponin I High Sens (<3.5-17.0) ng/L Total Protein (6.5-8.0) g/dL Albumin (3.5-5.0) g/dL Stool Occult Blood (NEG) Acetone, Qual (Negative) COVID-19 (OZIEL) Negative (Negative) COVID-19 Clin Com See Note 04/01/20 Range/Units 18:16 WBC (4.8-10.8) X10*3/uL RBC (4.20-5.50) X10*6/uL Hgb (12.0-16.0) g/dl Hct (37-47) % MCV (80-98) fL MCH (27.0-33.0) pg MCHC (31.0-35.0) g/dl RDW (11.0-16.0) % Plt Count (160-400) X10*3/uL MPV (9.4-12.3) fL Immature Gran % (Auto) (0.0-0.4) % Neut % (Auto) (45-73) % Lymph % (Auto) (20-40) % [place] % (Auto) (2-11) % Eos % (Auto) (0-4) % Baso % (Auto) (0-2) % Lymph # (Auto) (1.2-4.9) X10*3/uL [place] # (Auto) (0.1-1.2) X10*3/uL Eos # (Auto) (0.0-0.4) X10*3/uL Baso # (Auto) (0.0-0.2) X10*3/uL Abs Immat Gran (auto) (0.00-0.03) X10*3/uL Absolute Neuts (auto) (2.0-8.3) X10*3/uL Absolute Nucleated RBC (0.0-0.012) X10*3/uL Nucleated RBC % (auto) (0.0-0.2) /100WBC PT (10.8-13.0) SEC INR (0.9-1.1) VBG pH (7.32-7.43) VBG pCO2 mmHg VBG pO2 mmHg VBG HCO3 mmol/L VBG O2 Saturation % VBG Base Excess mmol/L Sodium (135-145) mmol/L Potassium (3.3-5.1) mmol/l Chloride (96-108) mmol/L Carbon Dioxide (22-29) mmol/L Anion Gap (12-20) BUN (9-16) mg/dL Creatinine (0.5-1.4) mg/dL Estim Creat Clear Calc Estimated GFR POC Glucose 243 H (60-115) mg/dL Random Glucose (60-115) mg/dL Lactic Acid (0.5-2.0) mmol/L Lactic Acid Fup @ 2Hr (0.5-2.0) mmol/L Calcium (8.4-10.2) mg/dL Magnesium (1.6-2.6) mg/dL Total Bilirubin (0.0-1.0) mg/dL Direct Bilirubin (0.0-0.5) mg/dL AST (5-31) U/L ALT (0-31) U/L Alkaline Phosphatase (39-117) U/L Troponin I High Sens (<3.5-17.0) ng/L Total Protein (6.5-8.0) g/dL Albumin (3.5-5.0) g/dL Stool Occult Blood (NEG) Acetone, Qual (Negative) COVID-19 (OZIEL) (Negative) COVID-19 Clin Com Imaging Data CT scan - abdomen: Attestation: I personally reviewed and interpreted this imaging study as follows: Radiologist's impression: Colitis of the distal colon. The more proximal colon is slightly dilated and filled with stool questionable for partial obstruction. Prominent left ovarian vessels questionable for pelvic congestion. Fatty liver. ct head/neck: Attestation: I personally reviewed and interpreted this imaging study as follows: Radiologist's impression: EXAMINATION: HEAD AND CERVICAL SPINE CT WITHOUT CONTRAST CLINICAL INFORMATION: Fall. Pain. COMPARISON: Previous head CT most recent December [address] most recent October 2019 TECHNIQUE: Axial images through the head and cervical spine without contrast. Sagittal and coronal reconstructions on the technologist workstation were performed. Patient dose 665+3 1 8 mg/cm This CT examination was performed using dose optimization techniques as appropriate, variously including the following: *Automated exposure control *Adjustment of mA and/or kV according to patient size (this includes techniques or standardized protocols for targeted exams where dose is matched to indication/reason for exam; i.e. extremities or head) *Use of iterative reconstruction technique FINDINGS: Head CT: There is no evidence of an extra-axial collection. There is no evidence of intra-axial or extra-axial hemorrhage. The ventricles and extra-axial CSF spaces are appropriate. Byers-white matter differentiation is normal. No mass, mass effect or infarct is seen. Review of bone windows is normal. Visualized paranasal sinuses, mastoid air cells and middle ears are clear. Cervical spine CT: Bone alignment is normal. No fracture or dislocation is seen. There is evidence of mild degenerative spondylosis from C3-C4 to C5-C6. Disc spaces are normal. Prevertebral soft tissues are normal. There are emphysematous changes at the lung apices. CT/CT cervical spine wo con IMPRESSION: Head CT: Unremarkable exam. Cervical spine CT: Mild degenerative changes. Chest x-ray: Attestation: I personally reviewed and interpreted this imaging study as follows: Radiologist's impression: XAMINATION: XR CHEST CLINICAL INFORMATION: Near syncope COMPARISON: Previous chest x-ray most recent December 2019 TECHNIQUE: 2 views of the chest were obtained. FINDINGS: The cardiac and mediastinal contours are stable. The lungs are clear. There is no pleural effusion or pneumothorax. Bony structures are unremarkable. XR/XR chest 2V IMPRESSION: No evidence for acute disease in the chest. ECG Data Attestation: I personally reviewed and interpreted this ECG as follows: Interpretation: Normal sinus rhythm with rate of 72, normal MS, normal QRS, normal QT Discharge Plan Discharge Clinical Impression: Near syncope, Orthostatic hypotension, Acute hyperglycemia Patient Disposition: Admitted As Inpatient
[2020-04-01 14:23] VITALS: BP 82/55; BP 93/64; BP 95/57; PULSE 71; PULSE 72; PULSE 78
[2020-04-01 14:30] LABS: Glucose, Whole Blood 568 mg/dL (60-115)
[2020-04-01 14:30] LABS: Glucose, Whole Blood > 600 mg/dL (60-115)
[2020-04-01 14:40] LABS: MANUAL DIFF FLAG NO
[2020-04-01 14:41] LABS: Basophils Percent Auto 0.3 % (0-2); Eosinophils Percent Auto 0.2 % (0-4); Hematocrit 37.3 % (37-47); Hemoglobin 12.5 g/dl (12.0-16.0); Imm Gran Abs Auto 0.05 X10*3/uL (0.00-0.03); Imm Gran Pct Auto 0.4 % (0.0-0.4); Lymphocytes Absolute Auto 2.3 X10*3/uL (1.2-4.9); Lymphocytes Percent Auto 20.1 % (20-40); Mean Corpuscular HGB Conc 33.5 g/dl (31.0-35.0); Mean Corpuscular Hemoglobin 28.7 pg (27.0-33.0); Mean Corpuscular Volume 85.7 fL (80-98); Mean Platelet Volume 12.7 fL (9.4-12.3); Monocytes Absolute Auto 0.8 X10*3/uL (0.1-1.2); Monocytes Percent Auto 6.5 % (2-11); Neutrophils Absolute Auto 8.4 X10*3/uL (2.0-8.3); Neutrophils Percent Auto 72.5 % (45-73); Platelet Count 242 X10*3/uL (160-400); Red Blood Count 4.35 X10*6/uL (4.20-5.50); Red Cell Distribution Width 12.3 % (11.0-16.0); White Blood Count 11.7 X10*3/uL (4.8-10.8)
[2020-04-01 14:42] LABS: OBS Int Ctl Valid YES; OBS1 NEG (NEG)
[2020-04-01 14:52] LABS: INTERNATIONAL NORM RATIO 1.1 (0.9-1.1); Prothrombin Time 12.9 SEC (10.8-13.0)
[2020-04-01] MEDS: 0.9 % Sodium Chloride 1,000 ML 999 ML IVCONT ×2 (14:54→16:44)
[2020-04-01] MEDS: HYDROmorphone HCl 0.5 MG/0.5 ML SYRINGE IVPUSH (14:57)
[2020-04-01] MEDS: ondansetron HCL 4 MG/2 ML VIAL IVPUSH (14:57)
[2020-04-01 15:08] LABS: Lactic Acid 2.9 mmol/L (0.5-2.0)
[2020-04-01 15:12] LABS: Acetone, serum QL Negative (Negative)
[2020-04-01 15:13] LABS: Alanine Aminotransferase 18 U/L (0-31); Albumin Level 4.3 g/dL (3.5-5.0); Alkaline Phosphatase 111 U/L (39-117); Anion Gap 14 (12-20); Aspartate Amino Transferase 9 U/L (5-31); Bilirubin Direct 0.2 mg/dL (0.0-0.5); Bilirubin Total 0.6 mg/dL (0.0-1.0); Blood Urea Nitrogen 13 mg/dL (9-16); Calcium 9.6 mg/dL (8.4-10.2); Carbon Dioxide 26 mmol/L (22-29); Chloride 94 mmol/L (96-108); Creatinine Clr Calc Pharmacy 38.3; Estimated Glomerular Filt Rate 40; Glucose Random 674 mg/dL (60-115); Potassium 4.9 mmol/l (3.3-5.1); Sodium 129 mmol/L (135-145); Total Protein 7.2 g/dL (6.5-8.0)
[2020-04-01 15:16] LABS: Troponin-I High Sensitivity < 3.5 ng/L (<3.5-17.0)
[2020-04-01] MEDS: iohexoL 350 MG/ML 100 ML INFUS..BTL IV (15:35)
[2020-04-01] MEDS: Insulin Regular, Human 100 UNIT/ML 3 ML VIAL 10 UNIT IVPUSH (15:42)
--- NOTE | 2020-04-01 16:20 | PC.NURSE ---
pt has multiple vague complaints of pain. She states she has head pain, all over pain . Pt was medicated with dilauidid for pain, reports no improvement. provider aware, will continue to monitor
[2020-04-01 16:38] LABS: Reflex Lactate? Lactic Acid Added
--- NOTE | 2020-04-01 16:44 | PC.NURSE ---
pt states she has a headache. Explained that provider would be updated. Pt then tearful and argumentative, states she cannot take motrin or tylenol and wants dilaudid. explianed to pt there are no further narcotic pain medications ordered. Pt is exhibiting some narcotic seeking behaviors. When she was told she would not be getting narcotics at this time she continued to state that she was getting them but her provider took her off of them and that she has been in pain for several months. She then became angry, would not allow RN to complete care and states if she does not get pain meds she is leaving. Pt then states she is too weak to walk, has neck pain, all over pain and needs something for pain. Provider aware.
--- NOTE | 2020-04-01 17:21 | PM.CNGS ---
History of Present Illness Consult details Consult date: 04/01/20 Narrative: 54F referred by the ED staff for colitis on CT. The patient has multiple medical problems, including stage IV lung CA, opioid use d/o, PMFSH Past Medical History Medical History Adrenal insufficiency Adrenal insufficiency due to cancer therapy Aftercare following left shoulder joint replacement surgery Arthritis Asthma COPD (chronic obstructive pulmonary disease) Depression Fibromyalgia History of lung cancer Hypothyroidism Multinodular goiter Newly diagnosed diabetes Non-small cell carcinoma of left lung, stage 4 Opioid abuse Opioid use disorder Pancreatitis Radiation-induced esophagitis Subclinical hyperthyroidism Family History Family History Father Pancreatic cancer Mother Diabetes Brother Diabetes Sister Diabetes Surgical History Surgical History History of History of esophageal dilatation Hx of blepharoplasty Hx of shoulder surgery Status post cholecystectomy Social History Social History Household Members: None Alcohol intake: never Smoking Status: Current some day smoker Tobacco Type: Cigarette Cigarettes Per Day: 1 Years Smoked: 45 Smoked in Last 30 Days: Yes Use of substances other than those prescribed or required for medical reasons: No Advance Directives: No Advance Directives Information Provided: Yes service: No Current occupational status: disabled Meds Allergies Allergy/AdvReac Type Severity Reaction Status Date / Time acetaminophen [Tylenol] AdvReac Unknown Abdominal Verified 03/08/20 13:08 Pain ibuprofen AdvReac Unknown Abdominal Verified 03/08/20 13:08 Pain senna AdvReac Unknown Headache Verified 03/08/20 13:08 Home Medications Medication Instructions Recorded Confirmed Type alprazolam 1 mg PO TID 12/17/19 03/24/20 History bupropion HCl 300 mg PO DAILY 12/17/19 03/24/20 History clonidine HCl 0.1 mg PO BEDTIME 12/17/19 03/24/20 History hydroxyzine pamoate 50 mg PO Q8H PRN 12/17/19 03/24/20 History levetiracetam 500 mg PO BID 12/17/19 03/24/20 History meclizine 25 mg PO Q8H PRN 12/17/19 03/24/20 History mesalamine 800 mg PO TID 12/17/19 03/24/20 History omeprazole 20 mg PO BID 12/17/19 03/24/20 History sucralfate 1 g PO BEDTIME 12/17/19 03/24/20 History nivolumab 240 mg/24 mL intravenous 240 mg IV Q2W 03/08/20 03/24/20 History solution polyethylene glycol 3350 17 17 g PO DAILY 03/08/20 03/24/20 History gram/dose oral powder scopolamine base 1 mg over 3 days 1 patch TRANSDERMAL Q72H 03/08/20 03/24/20 History transdermal patch venlafaxine 150 mg 150 mg PO DAILY 03/08/20 03/24/20 History capsule,extended release 24 hr zolpidem 10 mg tablet 10 mg PO BEDTIME PRN 03/08/20 03/24/20 History alcohol swabs 0 pad TOPICAL 03/24/20 03/24/20 History Physical Exam Vital Signs: Vital Signs: Last Vital Signs Temp 97.5 F 04/01/20 13:42 Pulse 78 04/01/20 14:23 Resp 16 04/01/20 13:42 BP 95/57 L 04/01/20 14:23 Pulse Ox 95 04/01/20 13:42 Body Mass Index 23.0 Results Labs Result diagrams: 04/01/20 14:34 04/01/20 14:34 Labs: Abnormal lab results 04/01/20 04/01/20 04/01/20 Range/Units 14:11 14:18 14:33 WBC (4.8-10.8) X10*3/uL MPV (9.4-12.3) fL Abs Immat Gran (auto) (0.00-0.03) X10*3/uL Absolute Neuts (auto) (2.0-8.3) X10*3/uL Sodium (135-145) mmol/L Chloride (96-108) mmol/L POC Glucose > 600 H* 568 H* (60-115) mg/dL Random Glucose (60-115) mg/dL Lactic Acid 2.9 H* (0.5-2.0) mmol/L 04/01/20 04/01/20 Range/Units 14:34 14:34 WBC 11.7 H (4.8-10.8) X10*3/uL MPV 12.7 H (9.4-12.3) fL Abs Immat Gran (auto) 0.05 H (0.00-0.03) X10*3/uL Absolute Neuts (auto) 8.4 H (2.0-8.3) X10*3/uL Sodium 129 L (135-145) mmol/L Chloride 94 L (96-108) mmol/L POC Glucose (60-115) mg/dL Random Glucose 674 H* (60-115) mg/dL Lactic Acid (0.5-2.0) mmol/L Short CBC 04/01/20 Range/Units 14:34 WBC 11.7 H (4.8-10.8) X10*3/uL Hgb 12.5 (12.0-16.0) g/dl Hct 37.3 (37-47) % Plt Count 242 (160-400) X10*3/uL BMP 04/01/20 14:34 Sodium 129 L Potassium 4.9 D Chloride 94 L Carbon Dioxide 26 BUN 13 Creatinine 1.39 Calcium 9.6 Liver Function 04/01/20 Range/Units 14:34 Total Bilirubin 0.6 (0.0-1.0) mg/dL Direct Bilirubin 0.2 (0.0-0.5) mg/dL AST 9 (5-31) U/L ALT 18 (0-31) U/L Alkaline Phosphatase 111 (39-117) U/L Albumin 4.3 (3.5-5.0) g/dL All other labs normal.
[2020-04-01 17:22] LABS: PCO2 VBG 60 mmHg
[2020-04-01 17:23] LABS: Base Excess VBG 2.5 mmol/L; HCO3 VBG 30 mmol/L; PO2 VBG 46 mmHg
--- NOTE | 2020-04-01 17:24 | P.CONGS_ITS ---
History of Present Illness Consult details Consult date: 04/01/20 Narrative: 54F with multiple medical problems, referred by the ED staff for colitis on CT. She has multiple medical problems including Stage IV lung ca, opioid use d/o, who came to the ED this afternoon after falling at home. She says she ahd fallen twice, and thinks she may have hit her head on the floor. She describes pain on her head, neck and all over her body. As a matter of fact, she describes multiple complaints of pain. She describes left sided pain as well, and says she has frequent bouts of colitis. She says she has diarrhea, too. She had been followed by Dr. Murphy for her GI issues and she has had multiple colonoscopies in the past. She had findings of colitis in different segments of her colon on CT as well as on colonoscopy multiple times over the past few years. 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 She is seeing for chemotherapy for her lung cancer and had just seen her earlier today. The patient says she thinks her chemotherapy and lung cancer causes her many aches and pains, and she states she really needs narcotics for pain relief. Her last colonoscopy was in 2019 and this suggested colitis is the distal colon. Review of Systems Constitutional: Constitutional: Reports frequent falls ENT: Reports neck pain Cardiovascular: Cardiovascular: Reports chest pain and Denies dyspnea Respiratory: Respiratory: Denies cough, Reports pain on inspiration and Denies dyspnea Gastrointestinal: Gastrointestinal: Reports abdominal pain and Reports diarrhea Genitourinary: Genitourinary: Reports difficulty voiding Musculoskeletal: Musculoskeletal: Reports back pain, Reports myalgias and Reports neck pain Neurologic: Reports frequent falls and Denies focal weakness Psychiatric: Psychiatric: Reports anxiety and Reports depression [facility] Past Medical History Medical History Adrenal insufficiency Adrenal insufficiency due to cancer therapy Aftercare following left shoulder joint replacement surgery Arthritis Asthma Colitis COPD (chronic obstructive pulmonary disease) Depression Fibromyalgia History of lung cancer Hypothyroidism Multinodular goiter Newly diagnosed diabetes Non-small cell carcinoma of left lung, stage 4 Opioid abuse Opioid use disorder Pancreatitis Radiation-induced esophagitis Subclinical hyperthyroidism Family History Family History Father Pancreatic cancer Mother Diabetes Brother Diabetes Sister Diabetes Surgical History Surgical History History of History of esophageal dilatation Hx of blepharoplasty Hx of shoulder surgery Status post cholecystectomy Social History Social History (Updated 04/01/20 @ 18:58 by DARYA Miranda) Household Members: Children Housing: Apartment Alcohol intake: never Smoking Status: Current some day smoker Tobacco Type: Cigarette Cigarettes Per Day: 1 Years Smoked: 45 Smoked in Last 30 Days: Yes Patient Interested in Nicotine Replacement: No Patient Given Instructions on How to Stop Smoking: Yes Date Education Initiated: 04/01/20 Use of substances other than those prescribed or required for medical reasons: No Currently Displaying Signs/Symptoms of Drug Intoxication Withdrawal: No Have you been hit, kicked, punched, or otherwise hurt by someone within the past year? If so, by whom?: No Do you feel safe in your current relationship?: No Current Relationship Is there a partner from a previous relationship who is making you feel unsafe now?: No Are you made to feel afraid or neglected: No Advance Directives: No Advance Directives Information Provided: Yes Do you have thoughts of harming others: None Do you have a plan to hurt others: No Plan Recently lost weight without trying: No service: No Current occupational status: unemployed and disabled Meds Allergies Allergy/AdvReac Type Severity Reaction Status Date / Time acetaminophen [Tylenol] AdvReac Unknown Abdominal Verified 03/08/20 13:08 Pain ibuprofen AdvReac Unknown Abdominal Verified 03/08/20 13:08 Pain senna AdvReac Unknown Headache Verified 03/08/20 13:08 Home Medications Medication Instructions Recorded Confirmed Type alprazolam 1 mg PO TID PRN 12/17/19 04/01/20 History bupropion HCl 300 mg PO DAILY 12/17/19 04/01/20 History clonidine HCl 0.1 mg PO BEDTIME PRN 12/17/19 04/01/20 History hydroxyzine pamoate 50 mg PO Q8H PRN 12/17/19 04/01/20 History levetiracetam 500 mg PO BID 12/17/19 04/01/20 History mesalamine 1,600 mg PO TID 12/17/19 04/01/20 History omeprazole 20 mg PO BID 12/17/19 04/01/20 History sucralfate 1 g PO BEDTIME 12/17/19 04/01/20 History nivolumab 240 mg/24 mL intravenous 240 mg IV Q2W 03/08/20 04/01/20 History solution venlafaxine 150 mg 150 mg PO DAILY 03/08/20 04/01/20 History capsule,extended release 24 hr zolpidem 10 mg tablet 10 mg PO BEDTIME PRN 03/08/20 04/01/20 History Physical Exam Vital Signs: Vital Signs: Last Vital Signs Temp 97.5 F 04/01/20 13:42 Pulse 78 04/01/20 14:23 Resp 16 04/01/20 13:42 BP 95/57 L 04/01/20 14:23 Pulse Ox 95 04/01/20 13:42 Body Mass Index 23.0 Const: Other: very emotional distraught, crying Neck: Neck: No positive Brudzinski's sign Resp: Effort & Inspection: normal respiratory effort Cardio: Rhythm: regular rhythm GI: Other: mild tenderness on left Palpation (GI): Soft to palpation, not firm and no guarding Extrem: General: No edema Results Labs Result diagrams: 04/02/20 05:19 04/02/20 05:19 Labs: Abnormal lab results 04/01/20 04/01/20 04/01/20 Range/Units 14:11 14:18 14:33 WBC (4.8-10.8) X10*3/uL MPV (9.4-12.3) fL Abs Immat Gran (auto) (0.00-0.03) X10*3/uL Absolute Neuts (auto) (2.0-8.3) X10*3/uL VBG pH (7.32-7.43) Sodium (135-145) mmol/L Chloride (96-108) mmol/L POC Glucose > 600 H* 568 H* (60-115) mg/dL Random Glucose (60-115) mg/dL Lactic Acid 2.9 H* (0.5-2.0) mmol/L 04/01/20 04/01/20 04/01/20 Range/Units 14:34 14:34 17:10 WBC 11.7 H (4.8-10.8) X10*3/uL MPV 12.7 H (9.4-12.3) fL Abs Immat Gran (auto) 0.05 H (0.00-0.03) X10*3/uL Absolute Neuts (auto) 8.4 H (2.0-8.3) X10*3/uL VBG pH 7.30 L (7.32-7.43) Sodium 129 L (135-145) mmol/L Chloride 94 L (96-108) mmol/L POC Glucose (60-115) mg/dL Random Glucose 674 H* (60-115) mg/dL Lactic Acid (0.5-2.0) mmol/L Short CBC 04/01/20 Range/Units 14:34 WBC 11.7 H (4.8-10.8) X10*3/uL Hgb 12.5 (12.0-16.0) g/dl Hct 37.3 (37-47) % Plt Count 242 (160-400) X10*3/uL BMP 04/01/20 14:34 Sodium 129 L Potassium 4.9 D Chloride 94 L Carbon Dioxide 26 BUN 13 Creatinine 1.39 Calcium 9.6 Liver Function 04/01/20 Range/Units 14:34 Total Bilirubin 0.6 (0.0-1.0) mg/dL Direct Bilirubin 0.2 (0.0-0.5) mg/dL AST 9 (5-31) U/L ALT 18 (0-31) U/L Alkaline Phosphatase 111 (39-117) U/L Albumin 4.3 (3.5-5.0) g/dL All other labs normal. Imaging Abdomen CT scan report/results: report reviewed and image reviewed CT scan - pelvis: report reviewed and image reviewed Assessment and Plan (1) Colitis: Status: Acute 54F with mutiple medical problems as described above. She has CT scan suggesting colitis of the distal colon. She does have a long hx of colitis and has had multiple colonoscopies. She was being followed by Dr. Murphy before. She is clinically not obstructed. Evaluation of her pain is complicated by her persistend demand for pain medications specifically narcotics. she however has a very benign exam. I would recommend keeping her on clear liquids for tonight. I do not feel she needs antibiotics at this time.I will follow along while she is the hospital. The rest of her care will be by the medical service. Time spent examining the patient,reviewing patient's history, records, imaging studies and coordinating care was about 60 minutes.
[2020-04-01 17:49] LABS: ~Lactic Acid-LAB USE ONLY 2.9 mmol/L (0.5-2.0)
[2020-04-01 17:53] LABS: COVID-19 Test Negative (Negative)
[2020-04-01 18:21] LABS: Glucose, Whole Blood 243 mg/dL (60-115)
[2020-04-01 18:48] LABS: Glucose Urine UA 250 MG/DL (NEG); Leukocyte Esterase Urine NEG (NEG); Nitrite Urine NEG (NEG); Specific Gravity - Urine 1.015 (1.005-1.025); Urine Blood 1+ (NEG); Urine Ketones NEG (NEG); Urine Protein NEG (NEG-TRACE)
--- NOTE | 2020-04-01 18:52 | PM.IMHP ---
History of Present Illness Date of Service: 04/01/20 <DARYA Miranda - Last Filed: 04/01/20 19:23> Chief Complaint: fall <DARYA Miranda - Last Filed: 04/01/20 19:23> This is a 54-year-old female with multiple medical problems who presented to the emergency department after falling. She had 2 episodes where she thinks she may have passed out earlier today. She initially told the emergency room provider she was dizzy prior to her fall however she denies this now. She is unsure why she fell. She hit the back of her head. She is complaining of pain all over. She reported abdominal pain therefore a CT scan was done and showed distal colitis and possible partial small-bowel obstruction. She reports numerous episodes of diarrhea as well as formed stool and in addition blood mixed in her stool. Her H/H was normal and she was heme-negative from below. Per the emergency room provider she had brown stool on exam. She was evaluated by General surgery in the emergency department who felt most of her findings were chronic who did not require antibiotics. She was also noted to be hyperglycemic with a sugar of 674. This improved to 243 after 10 units of IV insulin. <DARYA Miranda - Last Filed: 04/01/20 19:23> Review of Systems Review of Systems: Yes all other systems are reviewed and are negative <DARYA Miranda - Last Filed: 04/01/20 19:23> Constitutional: Constitutional: Denies chills and Denies fever(s) <DARYA Miranda - Last Filed: 04/01/20 19:23> Respiratory: Respiratory: Denies cough <DARYA Miranda Last Filed: 04/01/20 19:23> Gastrointestinal: Gastrointestinal: Reports abdominal pain and Reports diarrhea <DARYA Miranda Last Filed: 04/01/20 19:23> [facility] Medical History: Medical History Adrenal insufficiency Adrenal insufficiency due to cancer therapy Aftercare following left shoulder joint replacement surgery Arthritis Asthma Colitis COPD (chronic obstructive pulmonary disease) Depression Fibromyalgia History of lung cancer Hypothyroidism Multinodular goiter Newly diagnosed diabetes Non-small cell carcinoma of left lung, stage 4 Opioid abuse Opioid use disorder Pancreatitis Radiation-induced esophagitis Subclinical hyperthyroidism <DARYA Miranda - Last Filed: 04/01/20 19:23> Functional capacity: independent ambulation <DARYA Miranda - Last Filed: 04/01/20 19:23> Family History: Family History Father Pancreatic cancer Mother Diabetes Brother Diabetes Sister Diabetes <DARYA Miranda - Last Filed: 04/01/20 19:23> Family history: reviewed and not pertinent <DARYA Miranda - Last Filed: 04/01/20 19:23> Surgical History: Surgical History History of History of esophageal dilatation Hx of blepharoplasty Hx of shoulder surgery Status post cholecystectomy <DARYA Miranda - Last Filed: 04/01/20 19:23> Social History: Social History Household Members: Children Housing: Apartment Alcohol intake: former Smoking Status: Light tobacco smoker Tobacco Type: Cigarette Cigarettes Per Day: 1 Years Smoked: 45 service: No Current occupational status: unemployed and disabled <DARYA Miranda - Last Filed: 04/01/20 19:23> Meds Allergies/Adverse reactions: Allergies Allergy/AdvReac Type Severity Reaction Status Date / Time acetaminophen [Tylenol] AdvReac Unknown Abdominal Verified 03/08/20 13:08 Pain ibuprofen AdvReac Unknown Abdominal Verified 03/08/20 13:08 Pain senna AdvReac Unknown Headache Verified 03/08/20 13:08 <DARYA Miranda - Last Filed: 04/01/20 19:23> Home medications: Home Medications Medication Instructions Recorded Confirmed Type alprazolam 1 mg PO TID PRN 12/17/19 04/01/20 History bupropion HCl 300 mg PO DAILY 12/17/19 04/01/20 History clonidine HCl 0.1 mg PO BEDTIME PRN 12/17/19 04/01/20 History hydroxyzine pamoate 50 mg PO Q8H PRN 12/17/19 04/01/20 History levetiracetam 500 mg PO BID 12/17/19 04/01/20 History mesalamine 1,600 mg PO TID 12/17/19 04/01/20 History omeprazole 20 mg PO BID 12/17/19 04/01/20 History sucralfate 1 g PO BEDTIME 12/17/19 04/01/20 History nivolumab 240 mg/24 mL intravenous 240 mg IV Q2W 03/08/20 04/01/20 History solution venlafaxine 150 mg 150 mg PO DAILY 03/08/20 04/01/20 History capsule,extended release 24 hr zolpidem 10 mg tablet 10 mg PO BEDTIME PRN 03/08/20 04/01/20 History <DARYA Miranda - Last Filed: 04/01/20 19:23> Physical Exam Vital Signs and Narrative: Vital Signs: Last Vital Signs Temp 97.5 F 04/01/20 13:42 Pulse 78 04/01/20 14:23 Resp 16 04/01/20 13:42 BP 95/57 L 04/01/20 14:23 Pulse Ox 95 04/01/20 13:42 Body Mass Index 23.0 <DARYA Miranda - Last Filed: 04/01/20 19:23> Const: Other: Intermittently crying <DARYA Miranda - Last Filed: 04/01/20 19:23> General: alert and awake <DARYA Miranda - Last Filed: 04/01/20 19:23> Nutritional Appearance: well nourished <DARYA Miranda Last Filed: 04/01/20 19:23> Orientation/consciousness: patient oriented x3 <DARYA Miranda Last Filed: 04/01/20 19:23> HENMT: Head: Yes normocephalic and Yes atraumatic <DARYA Miranda Last Filed: 04/01/20 19:23> Eyes: Sclerae: sclerae normal <DARYA Miranda Last Filed: 04/01/20 19:23> Chest: Chest palpation & inspection: normal inspection of the chest <DARYA Miranda Last Filed: 04/01/20 19:23> Resp: Effort & Inspection: normal respiratory effort and no respiratory distress <DARYA Miranda - Last Filed: 04/01/20 19:23> Auscultation: clear to auscultation bilaterally <DARYA Miranda - Last Filed: 04/01/20 19:23> Cardio: Rate: regular rate <DARYA Miranda - Last Filed: 04/01/20 19:23> Rhythm: regular rhythm <DARYA Miranda - Last Filed: 04/01/20 19:23> GI: Inspection: No distended <DARYA Miranda - Last Filed: 04/01/20 19:23> Palpation (GI): Soft to palpation and nontender <DARYA Miranda - Last Filed: 04/01/20 19:23> Skin: General skin exam: no rashes or lesions noted <DARYA Miranda - Last Filed: 04/01/20 19:23> Neuro: General: patient oriented x3 <DARYA Miranda - Last Filed: 04/01/20 19:23> Cranial nerves: Yes CN's II-XII intact bilaterally and Yes Bilaterally intact EOM present <DARYA Miranda - Last Filed: 04/01/20 19:23> Extrem: General: Yes normal to inspection <DARYA Miranda - Last Filed: 04/01/20 19:23> Results Labs CBC and Chem 7: : 04/02/20 05:19 04/02/20 05:19 <DARYA Miranda - Last Filed: 04/01/20 19:23> Labs: Laboratory Results - last 24 hr 04/01/20 04/01/20 04/01/20 14:11 14:18 14:27 MCV MCH MCHC RDW Plt Count MPV Immature Gran % (Auto) Neut % (Auto) Lymph % (Auto) [place] % (Auto) Eos % (Auto) Baso % (Auto) Lymph # (Auto) [place] # (Auto) Eos # (Auto) Baso # (Auto) Abs Immat Gran (auto) Absolute Neuts (auto) Absolute Nucleated RBC Nucleated RBC % (auto) PT INR VBG pH VBG pCO2 VBG pO2 VBG HCO3 VBG O2 Saturation VBG Base Excess Anion Gap Estim Creat Clear Calc Estimated GFR POC Glucose > 600 H* 568 H* Random Glucose Lactic Acid Lactic Acid Fup @ 2Hr Calcium Magnesium Total Bilirubin Direct Bilirubin AST ALT Alkaline Phosphatase Troponin I High Sens Total Protein Albumin Stool Occult Blood NEG Acetone, Qual COVID-19 (OZIEL) COVID-19 [employer] 04/01/20 04/01/20 04/01/20 14:33 14:34 14:34 MCV 85.7 MCH 28.7 MCHC 33.5 RDW 12.3 Plt Count 242 MPV 12.7 H Immature Gran % (Auto) 0.4 Neut % (Auto) 72.5 Lymph % (Auto) 20.1 [place] % (Auto) 6.5 Eos % (Auto) 0.2 Baso % (Auto) 0.3 Lymph # (Auto) 2.3 [place] # (Auto) 0.8 Eos # (Auto) 0.0 Baso # (Auto) 0.0 Abs Immat Gran (auto) 0.05 H Absolute Neuts (auto) 8.4 H Absolute Nucleated RBC 0.000 Nucleated RBC % (auto) 0.0 PT INR VBG pH VBG pCO2 VBG pO2 VBG HCO3 VBG O2 Saturation VBG Base Excess Anion Gap 14 Estim Creat Clear Calc 38.3 Estimated GFR 40 POC Glucose Random Glucose 674 H* Lactic Acid 2.9 H* Lactic Acid Fup @ 2Hr Calcium 9.6 Magnesium 2.0 Total Bilirubin 0.6 Direct Bilirubin 0.2 AST 9 ALT 18 Alkaline Phosphatase 111 Troponin I High Sens Total Protein 7.2 Albumin 4.3 Stool Occult Blood Acetone, Qual COVID-19 (OZIEL) [employer] 04/01/20 04/01/20 04/01/20 14:34 14:34 14:34 MCV MCH MCHC RDW Plt Count MPV Immature Gran % (Auto) Neut % (Auto) Lymph % (Auto) [place] % (Auto) Eos % (Auto) Baso % (Auto) Lymph # (Auto) [place] # (Auto) Eos # (Auto) Baso # (Auto) Abs Immat Gran (auto) Absolute Neuts (auto) Absolute Nucleated RBC Nucleated RBC % (auto) PT 12.9 INR 1.1 VBG pH VBG pCO2 VBG pO2 VBG HCO3 VBG O2 Saturation VBG Base Excess Anion Gap Estim Creat Clear Calc Estimated GFR POC Glucose Random Glucose Lactic Acid Lactic Acid Fup @ 2Hr Calcium Magnesium Total Bilirubin Direct Bilirubin AST ALT Alkaline Phosphatase Troponin I High Sens < 3.5 Total Protein Albumin Stool Occult Blood Acetone, Qual Negative COVID-19 (OZIEL) COVID-19 Clin Com 04/01/20 04/01/20 04/01/20 17:03 17:03 17:10 MCV MCH MCHC RDW Plt Count MPV Immature Gran % (Auto) Neut % (Auto) Lymph % (Auto) [place] % (Auto) Eos % (Auto) Baso % (Auto) Lymph # (Auto) [place] # (Auto) Eos # (Auto) Baso # (Auto) Abs Immat Gran (auto) Absolute Neuts (auto) Absolute Nucleated RBC Nucleated RBC % (auto) PT INR VBG pH 7.30 L VBG pCO2 60 VBG pO2 46 VBG HCO3 30 VBG O2 Saturation 69.0 VBG Base Excess 2.5 Anion Gap Estim Creat Clear Calc Estimated GFR POC Glucose Random Glucose Lactic Acid Lactic Acid Fup @ 2Hr 2.9 H* Calcium Magnesium Total Bilirubin Direct Bilirubin AST ALT Alkaline Phosphatase Troponin I High Sens Total Protein Albumin Stool Occult Blood Acetone, Qual COVID-19 (OZIEL) Negative COVID-19 Clin Com See Note 04/01/20 18:16 MCV MCH MCHC RDW Plt Count MPV Immature Gran % (Auto) Neut % (Auto) Lymph % (Auto) [place] % (Auto) Eos % (Auto) Baso % (Auto) Lymph # (Auto) [place] # (Auto) Eos # (Auto) Baso # (Auto) Abs Immat Gran (auto) Absolute Neuts (auto) Absolute Nucleated RBC Nucleated RBC % (auto) PT INR VBG pH VBG pCO2 VBG pO2 VBG HCO3 VBG O2 Saturation VBG Base Excess Anion Gap Estim Creat Clear Calc Estimated GFR POC Glucose 243 H Random Glucose Lactic Acid Lactic Acid Fup @ 2Hr Calcium Magnesium Total Bilirubin Direct Bilirubin AST ALT Alkaline Phosphatase Troponin I High Sens Total Protein Albumin Stool Occult Blood Acetone, Qual COVID-19 (OZIEL) COVID-19 Clin Com <DARYA Miranda - Last Filed: 04/01/20 19:23> Imaging Radiologist's Impressions: Impressions Abdomen/Pelvis CT 04/01/20 14:17 IMPRESSION: Colitis of the distal colon. The more proximal colon is slightly dilated and filled with stool questionable for partial obstruction. Prominent left ovarian vessels questionable for pelvic congestion. Fatty liver. Cervical Spine CT 04/01/20 14:17 IMPRESSION: Head CT: Unremarkable exam. Cervical spine CT: Mild degenerative changes. Head CT 04/01/20 14:17 IMPRESSION: Head CT: Unremarkable exam. Cervical spine CT: Mild degenerative changes. Chest X-Ray 04/01/20 14:18 IMPRESSION: No evidence for acute disease in the chest. <DARYA Miranda - Last Filed: 04/01/20 19:23> Assessment and Plan (1) Orthostatic hypotension: Status: Acute <DARYA Miranda - Last Filed: 04/01/20 19:23> (2) Near syncope: Status: Acute <DARYA Miranda - Last Filed: 04/01/20 19:23> (3) Acute hyperglycemia: Status: Acute <DARYA Miranda - Last Filed: 04/01/20 19:23> (4) Colitis: Status: Acute <DARYA Miranda - Last Filed: 04/01/20 19:23> This is a 54 year old female with a history of lung cancer, anxiety, fibromyalgia, adrenal insufficiency, among others who presents with multiple complaints including falls and abdominal pain Syncope versus near-syncope r/t Positive orthostatics -tele monitoring -IVF pSBO benign abdominal exam seen by surgery - clinically not obstructed stool filled colon on CT - start miralax clear liquid diet surgery to follow colitis on CT h/o chronic colitis no indication for abx at this time. no sepsis elevated lactic acid r/t hypotension, not sepsis DM with hyperglycemia Improved with insulin in ED -resume home medication-SSI, POCs Pseudo hyponatremia Sodium corrected when corrected for hyperglycemia h/o of opioid use disorder avoid narcotics when possible. listed allergies to motrin and tylenol will use tramadol for pain control Adrenal insufficiency Continue prednisone Mood Continue Effexor, bupropion, Ativan, hydroxyzine Seizure disorder Continue Keppra Seizure precautions dvt ppx - boots this case was discussed with dr. adair <DARYA Miranda - Last Filed: 04/01/20 19:23>
[2020-04-01 19:08] LABS: Appearance Urine CLEAR; Color Urine YELLOW
[2020-04-01 19:10] LABS: Bacteria Urine TRACE /LPF; RBC Urine 0 /HPF (0); Squamous Epithelial Cell Urine TRACE /LPF; WBC Urine 0 /HPF (0-4)
[2020-04-01 19:18] LABS: Reflex Lactate? 2 Y
[2020-04-01 20:26] VITALS: BP 104/62; PULSE 76; RESP 18; O2SAT 98
--- NOTE | 2020-04-01 21:55 | MHC.CM.PN ---
CM met with pt in ED pending transfer to floor. Pt very upset about not getting Diluadid. Requesting from all who enter room. Pt has hx of opiate use disorder. Has HX of adenocarcinoma lung stage 4 and fibromylgia. Here for hyperglycemia. Cannot remember PCP. Dr. Gorman follows this pt for CA treatment. HCP reviewed, completed and signed. Daughter, Zeinab Azar, is HCP ([phone]). IMM completed per protocol. Has AMPLIFIER MECHANIC, Ana Rudd through [facility]. Daughter, Zeinab also provides care. RN aware of request for pain medication. CM to follow for d/c services.
[2020-04-01 22:53] VITALS: BP 130/79; PULSE 69; RESP 20; TEMP 36.8; O2SAT 99
[2020-04-01 22:59] LABS: Glucose, Whole Blood 204 mg/dL (60-115)
[2020-04-01] MEDS: Omeprazole 20 MG CAPSULE.DR PO (23:20)
[2020-04-01] MEDS: Insulin Lispro 100 UNIT/ML 3 ML VIAL SUBCUT (23:20)
[2020-04-01] MEDS: levETIRAcetam 500 MG TABLET PO (23:20)
[2020-04-01] MEDS: Sucralfate 1 GM TABLET PO (23:20)
[2020-04-01] MEDS: Lactated Ringers 1,000 ML 100 ML IVCONT (23:22)
[2020-04-01] MEDS: ALPRAZolam 0.5 MG TABLET 1 MG PO (23:24)
[2020-04-02 01:07] LABS: ~Lactic Acid-LAB USE ONLY 1.4 mmol/L (0.5-2.0)
[2020-04-02] MEDS: HYDROmorphone HCl 0.5 MG/0.5 ML SYRINGE IVPUSH (01:40)
[2020-04-02 04:00] VITALS: BP 118/73; PULSE 73; RESP 18; TEMP 36; O2SAT 97
[2020-04-02] MEDS: Zolpidem Tartrate 5 MG TABLET PO (04:28)
[2020-04-02 06:30] LABS: Eosinophils Percent Auto 1.9 % (0-4); Hematocrit 31.5 % (37-47); PLT ABN DIST 1; SCAN SMEAR FLAG 1
[2020-04-02 06:32] LABS: Basophils Percent Auto 0.4 % (0-2); Eosinophils Absolute Auto 0.2 X10*3/uL (0.0-0.4); Hemoglobin 10.1 g/dl (12.0-16.0); Imm Gran Abs Auto 0.03 X10*3/uL (0.00-0.03); Imm Gran Pct Auto 0.4 % (0.0-0.4); Lymphocytes Percent Auto 38.6 % (20-40); Mean Corpuscular HGB Conc 32.1 g/dl (31.0-35.0); Mean Corpuscular Hemoglobin 28.5 pg (27.0-33.0); Mean Platelet Volume 13.2 fL (9.4-12.3); Monocytes Absolute Auto 0.5 X10*3/uL (0.1-1.2); Monocytes Percent Auto 6.2 % (2-11); Neutrophils Absolute Auto 4.1 X10*3/uL (2.0-8.3); Neutrophils Percent Auto 52.5 % (45-73); Platelet Count 155 X10*3/uL (160-400); Red Blood Count 3.54 X10*6/uL (4.20-5.50); Red Cell Distribution Width 12.5 % (11.0-16.0); White Blood Count 7.7 X10*3/uL (4.8-10.8)
[2020-04-02 06:35] LABS: MANUAL DIFF FLAG NO
[2020-04-02 07:10] LABS: Blood Urea Nitrogen 7 mg/dL (9-16); Creatinine Clr Calc Pharmacy 62.6; Estimated Glomerular Filt Rate > 60; Glucose Random 332 mg/dL (60-115)
[2020-04-02 07:24] LABS: Anion Gap 15 (12-20); Carbon Dioxide 23 mmol/L (22-29); Chloride 103 mmol/L (96-108); Potassium 3.5 mmol/l (3.3-5.1); Sodium 137 mmol/L (135-145)
[2020-04-02 08:00] VITALS: BP 152/77; PULSE 67; RESP 18; TEMP 36.1; O2SAT 97
--- NOTE | 2020-04-02 08:13 | PC.NURSE ---
pt got OOB without assistance and walked to bathroom. Bed alarm on, pt did not wait for staff to assist her. Discussed risks of fall with pt. Pt states I hear you all talking out there sitting around doing nothing. Explained to Pt there is no one at nursing station and that staff were with other patients. Pt states I heard you say I'm drama . I know that voice. Pt then asking if her MD was coming because she wants pain medication. Explained that MD would be making rounds. Pt states MD in the ER stated she could have pain medicine and she wants pain medication. Asked pt her pain level and location, pt states I have stage 4 lung cancer, I shouldn't have to beg for pain medication because I got pain all over . Pt went on to state that no one is taking care of her. Discussed with pt is she's be willing to use commode, she states she wants to walk to bathroom. Asked pt if she could wait for assistance to ambulate, she states she won't wait and will walk. Placed camera at bedside, pt states she doesn't want the camera and is refusing to have it at bedside. removed camera and asked pt is she would be willing to use the commode to prevent falling. Notified correspondence section supervisor of pt's complaints.
--- NOTE | 2020-04-02 08:24 | PC.NURSE ---
pt has rung the call light, wants RN to speak to her daughter on her cell phone. RN advised pt to have daughter call unit. Pt then tearful, states she wants dilaudid, does not understand why her MD will not give the medication, states she cannot take tramodol because she has seizures. Pt states I should just get dressed and leave if they aren't going to give it to me . Pt has not reported her pain level, she has not discussed the severity, quality or location of her pain when asked these assessments. She states I have pain and then asking for medication Dilaudid by name. Will continue to monitor
--- NOTE | 2020-04-02 08:48 | PC.NURSE ---
pt yelling and srying, has removed her monitor and states she is leaving. I asked pt to wait to speak with MD, she continues to cry and demand pain meds. aware.
[2020-04-02 08:51] LABS: Glucose, Whole Blood 310 mg/dL (60-115)
--- NOTE | 2020-04-02 09:24 | PC.NURSE ---
and supervisor patching to bedside, states pt can have oxycodone. Pt refused medication and states she wants dilaudid. Pt states she is leaving AMA. She asked for IV to be removed. IV removed. Pt exited without assistance, she refused escort to lobby. Asked pt to wait for assistance to lobby, she states she is leaving.
--- NOTE | 2020-04-02 11:00 | PM.EVENT ---
Event Note Date of Service: 04/02/20 Event Note: Discharge summary Discharge diagnosis Orthostatic hypotension, fall, hyperglycemia I was contacted around 8 in the morning by the nurse that the patient wants to leave AMA. I went to see the patient who was very upset about not receiving Dilaudid IV. Reviewing her medications and medical problem the patient seems to have opioid abuse problem and drug-seeking behavior. I explained to her that we can use oral pain medications as no need for IV in her condition. Her exam was benign. She was made aware of the risk including leaving the hospital AMA including getting sicker, falls and possible . She refused taking oral pain medication and decided to leave against medical advice.
== END 2020-04-02 09:30 | disposition left against medical advice (07) | DRG 312 ==
LOC: HO.ED 17:53 → HO.EDOVER 19:09 → HO.IMC 20:36
PROVIDERS: Nurse Practitioner Family; Physician Assistant Medical; Admitting Provider Internal Medicine; Emergency Provider Internal Medicine; Visit Provider Student in an Organized Health Care Education/Training Program
DX: I95.1 Orthostatic hypotension (principal); F11.20 Opioid dependence, uncomplicated; E27.40 Unspecified adrenocortical insufficiency; K52.9 Noninfective gastroenteritis and colitis, unspecified; F32.9 Major depressive disorder, single episode, unspecified; F17.210 Nicotine dependence, cigarettes, uncomplicated; G40.909 Epilepsy, unspecified, not intractable, without status epilepticus; E11.65 Type 2 diabetes mellitus with hyperglycemia; Z20.822 Contact with and (suspected) exposure to COVID-19; Z76.5 Malingerer [conscious simulation]; Z71.6 Tobacco abuse counseling; Z88.6 Allergy status to analgesic agent; Z79.4 Long term (current) use of insulin; Z79.899 Other long term (current) drug therapy
CPT/HCPCS: 36415; 70450; 71046; 72125; 74177; 80048; 80076; 81001; 82009; 82272; 82803; 82947; 83605; 83735; 84484; 85025; 85610; 87040; 87635; 93005; 96361; 96374; 96375; 99285; J1170; J2405; Q9967

== ENCOUNTER 2020-04-06 20:49 | Emergency (ER) | payer OTHER, SELFPAY ==
--- NOTE | 2020-04-06 21:03 | ECG_ITS ---
Test Reason : HYPERGLYCEMIA Blood Pressure : / mmHG Vent. Rate : 063 BPM Atrial Rate : 063 BPM P-R Int : 176 ms QRS Dur : 076 ms QT Int : 414 ms P-R-T Axes : 065 056 042 degrees QTc Int : 423 ms Normal sinus rhythm Normal ECG When compared with ECG of 01-APR-2020 13:45, No significant change was found Referred By: Ingris Vasquez Electronically Signed By:Javier Nielson
[2020-04-06 21:06] VITALS: BP 130/72; BP 156/79; PULSE 63; PULSE 78; RESP 12; TEMP 36.4; O2SAT 98; O2SAT 99; BMI 23.0
[2020-04-06 21:16] LABS: Glucose, Whole Blood 517 mg/dL (60-115)
[2020-04-06 21:21] VITALS: BP 152/89; PULSE 71; RESP 15; TEMP 36.4; O2SAT 98
--- NOTE | 2020-04-06 21:21 | ED.GENADULT ---
HPI - General Adult General Chief complaint: General Medical Stated complaint: HYPERGLYCEMIA Time Seen by Provider: 04/06/20 21:03 Source: patient Mode of arrival: EMS History of Present Illness HPI narrative: This is a 54-year-old female with significant past medical history of opiate use disorder and is followed by pain management, asthma, arthritis, DM, radiation-induced esophagitis, colitis on Ms. Sonu schmitz, fibromyalgia, hyper thyroidism, adrenal insufficiency on chronic prednisone, lung adenocarcinoma status post radiation currently on nivolumab that she states contributes to her inability to keep glucose well controlled. She is brought in by EMS this evening with reported glucometer reading of (+) which she states she contacted the hospital and was instructed to come into the emergency department for further evaluation. She states she took Trulia this morning and nothing else. She states that nothing else works for her diabetes. In addition, patient has multiple complaints regarding appetite, abdominal discomfort, urinary discomfort but otherwise denies fevers, chills, shortness of breath, chest pain. Patient has complaint headache but denies any visual/speech/strength, weakness deficits. Related Data Home Medications Medication Instructions Recorded Confirmed alprazolam 1 mg PO TID PRN 12/17/19 04/01/20 bupropion HCl 300 mg PO DAILY 12/17/19 04/01/20 clonidine HCl 0.1 mg PO BEDTIME PRN 12/17/19 04/01/20 hydroxyzine pamoate 50 mg PO Q8H PRN 12/17/19 04/01/20 levetiracetam 500 mg PO BID 12/17/19 04/01/20 mesalamine 1,600 mg PO TID 12/17/19 04/01/20 omeprazole 20 mg PO BID 12/17/19 04/01/20 sucralfate 1 g PO BEDTIME 12/17/19 04/01/20 nivolumab 240 mg/24 mL intravenous 240 mg IV Q2W 03/08/20 04/01/20 solution venlafaxine 150 mg 150 mg PO DAILY 03/08/20 04/01/20 capsule,extended release 24 hr zolpidem 10 mg tablet 10 mg PO BEDTIME PRN 03/08/20 04/01/20 Previous Rx's Medication Instructions Recorded blood sugar diagnostic #150 ea 12/18/19 lancets 33 gauge #150 ea 12/18/19 pen needle, diabetic 32 gauge x #400 ea 12/18/19 blood sugar diagnostic #150 ea 12/28/19 blood-glucose meter #1 ea 12/28/19 lancets 28 gauge #150 ea 12/28/19 blood sugar diagnostic #150 ea 01/01/20 ketorolac [Acular] 1 drp OPHTHALMIC (EYE) QID #3 ml 02/01/20 insulin aspart U-100 100 unit/mL 5 unit SUBCUT TID 30 Days #15 ml 03/24/20 (3 mL) subcutaneous pen insulin degludec 200 unit/mL (3 20 unit SUBCUT DAILY 30 Days #3 ml 03/24/20 mL) subcutaneous pen prednisone 10 mg tablet 15 mg PO DAILY 30 Days #45 tab 03/24/20 Allergies Allergy/AdvReac Type Severity Reaction Status Date / Time acetaminophen [Tylenol] AdvReac Unknown Abdominal Verified 03/08/20 13:08 Pain ibuprofen AdvReac Unknown Abdominal Verified 03/08/20 13:08 Pain senna AdvReac Unknown Headache Verified 03/08/20 13:08 Review of Systems Review of Systems: Pertinent positives and negatives as stated in HPI 10 point review of systems otherwise negative. [facility] Past Medical History Source: nursing notes reviewed Medical History Adrenal insufficiency Adrenal insufficiency due to cancer therapy Aftercare following left shoulder joint replacement surgery Arthritis Asthma Colitis COPD (chronic obstructive pulmonary disease) Depression Fibromyalgia History of lung cancer Hypothyroidism Multinodular goiter Newly diagnosed diabetes Non-small cell carcinoma of left lung, stage 4 Opioid abuse Opioid use disorder Pancreatitis Radiation-induced esophagitis Subclinical hyperthyroidism Surgical History History of History of esophageal dilatation Hx of blepharoplasty Hx of shoulder surgery Status post cholecystectomy Family History Family History Father Pancreatic cancer Mother Diabetes Brother Diabetes Sister Diabetes Social History Social History Household Members: Children Housing: Apartment Alcohol intake: former Smoking Status: Light tobacco smoker Tobacco Type: Cigarette Cigarettes Per Day: 1 Years Smoked: 45 Smoked in Last 30 Days: Yes Use of substances other than those prescribed or required for medical reasons: No Advance Directives: No Advance Directives Information Provided: No service: No Current occupational status: unemployed and disabled Physical Exam Vital Signs: Vital Signs: Last Vital Signs Temp 98.3 F 04/06/20 22:34 Pulse 82 04/06/20 23:55 Resp 15 04/06/20 23:55 BP 132/88 04/06/20 23:55 Pulse Ox 97 04/06/20 23:55 Body Mass Index 23.0 VITAL SIGNS: Reviewed. GENERAL: Well developed, well nourished, in no acute distress. NOSE: Nares patent bilateral OROPHARYNX: no oral lesions noted, posterior pharynx clear, dry mucosa NECK: Supple, no adenopathy LUNGS: Normal breath sounds. No adventitious sounds or accessory muscle use. SpO2<98> CARDIOVASCULAR: Regular rate and rhythm without noted murmurs, no JVD or lower extremity edema. ABDOMEN: Soft, non-tender, non-distended with bowel sounds. MUSCULOSKELETAL: No tenderness, deformities, or effusions noted on gross inspection. EXTREMITIES: No cyanosis, clubbing or edema. SKIN: Inspection of the skin reveals no rashes, ulcerations, jaundice, pallor, or petechiae. NEUROLOGIC: Alert and oriented x 4. Strength and sensation to light touch were grossly intact x 4. Course Course Course Narrative: This is a 54-year-old female with history and clinical presentation consistent with multiple medical concerns that are likely associated with underlying chronic condition, however she is hyperglycemic and will evaluate for evidence of DKA, HHS, or infectious etiology. On review of documentation from past admission on 04/02 the patient signed out AMA after being upset regarding not receiving IV Dilaudid. Patient declining standard of care medications for migraines and requesting morphine. Patient became very upset and stated that she was not being given medication appropriate for her pain. Re-evaluation of her glucose after having received 1 L of fluids shows good improvement to low for 0s and despite a lengthy conversation regarding the risks and benefits of leaving prior to more satisfactory resolution of her glucose levels patient is demanding to leave against medical advice. On re-evaluation, patient decided that she would accept the Fioricet just prior to discharge but still wished to sign out AMA. Medical Decision Making Lab Data Result diagrams: 04/06/20 21:26 04/06/20 21:26 Labs: Lab Results 04/06/20 04/06/2021 Range/Units 21:11 21:26 21:26 WBC 6.5 (4.8-10.8) X10*3/uL RBC 3.68 L (4.20-5.50) X10*6/uL Hgb 10.5 L (12.0-16.0) g/dl Hct 32.3 L (37-47) % MCV 87.8 (80-98) fL MCH 28.5 (27.0-33.0) pg MCHC 32.5 (31.0-35.0) g/dl RDW 12.3 (11.0-16.0) % Plt Count 177 (160-400) X10*3/uL MPV 12.3 (9.4-12.3) fL Immature Gran % (Auto) 0.5 H (0.0-0.4) % Neut % (Auto) 55.4 (45-73) % Lymph % (Auto) 32.9 (20-40) % Patrick % (Auto) 7.4 (2-11) % Eos % (Auto) 3.2 (0-4) % Baso % (Auto) 0.6 (0-2) % Lymph # (Auto) 2.1 (1.2-4.9) X10*3/uL Patrick # (Auto) 0.5 (0.1-1.2) X10*3/uL Eos # (Auto) 0.2 (0.0-0.4) X10*3/uL Baso # (Auto) 0.0 (0.0-0.2) X10*3/uL Abs Immat Gran (auto) 0.03 (0.00-0.03) X10*3/uL Absolute Neuts (auto) 3.6 (2.0-8.3) X10*3/uL Absolute Nucleated RBC 0.000 (0.0-0.012) X10*3/uL Nucleated RBC % (auto) 0.0 (0.0-0.2) /100WBC Sodium 135 (135-145) mmol/L Potassium 3.4 (3.3-5.1) mmol/l Chloride 100 (96-108) mmol/L Carbon Dioxide 27 (22-29) mmol/L Anion Gap 11 L (12-20) BUN 7 L (9-16) mg/dL Creatinine 0.95 (0.5-1.4) mg/dL Estim Creat Clear Calc 55.9 Estimated GFR > 60 POC Glucose 517 H* (60-115) mg/dL Random Glucose 560 H* (60-115) mg/dL Calcium 7.8 L (8.4-10.2) mg/dL Total Bilirubin 0.4 (0.0-1.0) mg/dL AST 10 (5-31) U/L ALT 16 (0-31) U/L Alkaline Phosphatase 87 D (39-117) U/L Total Protein 5.3 L D (6.5-8.0) g/dL Albumin 3.2 L D (3.5-5.0) g/dL Acetone, Qual Negative (Negative) 04/06/20 Range/Units 23:44 WBC (4.8-10.8) X10*3/uL RBC (4.20-5.50) X10*6/uL Hgb (12.0-16.0) g/dl Hct (37-47) % MCV (80-98) fL MCH (27.0-33.0) pg MCHC (31.0-35.0) g/dl RDW (11.0-16.0) % Plt Count (160-400) X10*3/uL MPV (9.4-12.3) fL Immature Gran % (Auto) (0.0-0.4) % Neut % (Auto) (45-73) % Lymph % (Auto) (20-40) % Patrick % (Auto) (2-11) % Eos % (Auto) (0-4) % Baso % (Auto) (0-2) % Lymph # (Auto) (1.2-4.9) X10*3/uL Patrick # (Auto) (0.1-1.2) X10*3/uL Eos # (Auto) (0.0-0.4) X10*3/uL Baso # (Auto) (0.0-0.2) X10*3/uL Abs Immat Gran (auto) (0.00-0.03) X10*3/uL Absolute Neuts (auto) (2.0-8.3) X10*3/uL Absolute Nucleated RBC (0.0-0.012) X10*3/uL Nucleated RBC % (auto) (0.0-0.2) /100WBC Sodium (135-145) mmol/L Potassium (3.3-5.1) mmol/l Chloride (96-108) mmol/L Carbon Dioxide (22-29) mmol/L Anion Gap (12-20) BUN (9-16) mg/dL Creatinine (0.5-1.4) mg/dL Estim Creat Clear Calc Estimated GFR POC Glucose 410 H* (60-115) mg/dL Random Glucose (60-115) mg/dL Calcium (8.4-10.2) mg/dL Total Bilirubin (0.0-1.0) mg/dL AST (5-31) U/L ALT (0-31) U/L Alkaline Phosphatase (39-117) U/L Total Protein (6.5-8.0) g/dL Albumin (3.5-5.0) g/dL Acetone, Qual (Negative) ECG Data Attestation: I personally reviewed and interpreted this ECG as follows: Prior ECG tracings: available for review (04/01/2020) Interpretation: Normal sinus rhythm, HR-63, no evidence of acute ischemia, AL/QRS/QTC are within normal limits. Discharge Plan Discharge Clinical Impression: Hyperglycemia Headache Qualifiers: Headache type: unspecified Headache chronicity pattern: unspecified pattern Intractability: not intractable Qualified Code(s): R51.9 - Headache, unspecified Patient Disposition: Left Against Medical Advice Instructions: General Headache (ED), Diabetes and Exercise (ED) Additional Instructions: 1. Please resume all home medications as prescribed. 2. Please follow-up with your pain management physician regarding your headaches and body aches. 3. Please follow-up with your primary care physician and/or windows application packager regarding your sugar control. You have been instructed that you should remain here in the emergency department in order to ascertain that your sugars are continuing to improve with adequate hydration, however you are declining further medical treatment and evaluation for your elevated blood sugar. Prescriptions: No Action (DME) blood-glucose meter [FreeStyle Lite Meter] Kit See Rx Instructions .ROUTE .MEDSUPPLY Qty: 1 RF: 0 (DME) FreeStyle Test Strip See Rx Instructions .ROUTE .MEDSUPPLY Qty: 150 RF: 6 (DME) lancets [FreeStyle Lancets] 28 gauge misc See Rx Instructions .ROUTE .MEDSUPPLY Qty: 150 RF: 6 (DME) FreeStyle Lite Strips Strip See Rx Instructions .ROUTE .MEDSUPPLY Qty: 150 RF: 6 clonidine HCl 0.1 mg tablet 0.1 mg PO BEDTIME PRN (Reason: high blood pressure) RF: 0 alprazolam 1 mg tablet 1 mg PO TID PRN (Reason: Anxiety) RF: 0 hydroxyzine pamoate 50 mg capsule 50 mg PO Q8H PRN (Reason: Anxiety) RF: 0 bupropion HCl 300 mg tablet extended release 24 hr 300 mg PO DAILY RF: 0 levetiracetam 500 mg tablet 500 mg PO BID RF: 0 sucralfate 1 gram tablet 1 g PO BEDTIME RF: 0 omeprazole 20 mg capsule,delayed release(DR/EC) 20 mg PO BID RF: 0 mesalamine 800 mg tablet,delayed release (DR/EC) 1,600 mg PO TID RF: 0 ketorolac [Acular] 0.5 % drops 1 drp ophthalmic (eye) QID Qty: 3 RF: 0 Opdivo 240 mg/24 mL solution 240 mg IV Q2W RF: 0 venlafaxine 150 mg capsule,extended release 24hr 150 mg PO DAILY RF: 0 zolpidem 10 mg tablet 10 mg PO BEDTIME PRN (Reason: Sleep) RF: 0 insulin aspart U-100 [Novolog Flexpen U-100 Insulin] 100 unit/mL (3 mL) insulin pen 5 unit subcut TID 30 Days Qty: 15 RF: 4 Tresiba FlexTouch U-200 200 unit/mL (3 mL) insulin pen 20 unit subcut DAILY 30 Days Qty: 3 RF: 6 prednisone 10 mg tablet 15 mg PO DAILY 30 Days Qty: 45 RF: 2 (DME) pen needle, diabetic [BD Mireya 2nd Gen Pen Needle] 32 gauge x 5/32 needle See Rx Instructions .ROUTE .MEDSUPPLY Qty: 400 RF: 4 (DME) OneTouch Verio test strips Strip See Rx Instructions .ROUTE .MEDSUPPLY Qty: 150 RF: 6 (DME) lancets [OneTouch Delica Lancets] 33 gauge misc See Rx Instructions .ROUTE .MEDSUPPLY Qty: 150 RF: 6 Stand Alone Forms: Against Medical Advice Interventions: ED Discharge Assessment Last Done: 04/07/20 00:36 Discharge Date/Time: 04/07/20 00:38
[2020-04-06] MEDS: 0.9 % Sodium Chloride 1,000 ML 999 ML IV (21:33)
[2020-04-06 21:39] LABS: Basophils Percent Auto 0.6 % (0-2); Eosinophils Absolute Auto 0.2 X10*3/uL (0.0-0.4); Eosinophils Percent Auto 3.2 % (0-4); Hematocrit 32.3 % (37-47); Hemoglobin 10.5 g/dl (12.0-16.0); Imm Gran Abs Auto 0.03 X10*3/uL (0.00-0.03); Imm Gran Pct Auto 0.5 % (0.0-0.4); Lymphocytes Absolute Auto 2.1 X10*3/uL (1.2-4.9); Lymphocytes Percent Auto 32.9 % (20-40); MANUAL DIFF FLAG NO; Mean Corpuscular HGB Conc 32.5 g/dl (31.0-35.0); Mean Corpuscular Hemoglobin 28.5 pg (27.0-33.0); Mean Corpuscular Volume 87.8 fL (80-98); Mean Platelet Volume 12.3 fL (9.4-12.3); Monocytes Absolute Auto 0.5 X10*3/uL (0.1-1.2); Monocytes Percent Auto 7.4 % (2-11); Neutrophils Absolute Auto 3.6 X10*3/uL (2.0-8.3); Neutrophils Percent Auto 55.4 % (45-73); Platelet Count 177 X10*3/uL (160-400); Red Blood Count 3.68 X10*6/uL (4.20-5.50); Red Cell Distribution Width 12.3 % (11.0-16.0); White Blood Count 6.5 X10*3/uL (4.8-10.8)
[2020-04-06 21:50] LABS: Acetone, serum QL Negative (Negative)
--- NOTE | 2020-04-06 22:01 | PC.NURSE ---
brought pt to bathroom in wheel chair, for safety. pt missed specimen cup, will try for another sample following fluid.
[2020-04-06 22:02] LABS: Alanine Aminotransferase 16 U/L (0-31); Albumin Level 3.2 g/dL (3.5-5.0); Alkaline Phosphatase 87 U/L (39-117); Anion Gap 11 (12-20); Aspartate Amino Transferase 10 U/L (5-31); Bilirubin Total 0.4 mg/dL (0.0-1.0); Blood Urea Nitrogen 7 mg/dL (9-16); Calcium 7.8 mg/dL (8.4-10.2); Carbon Dioxide 27 mmol/L (22-29); Chloride 100 mmol/L (96-108); Creatinine Clr Calc Pharmacy 55.9; Estimated Glomerular Filt Rate > 60; Glucose Random 560 mg/dL (60-115); Potassium 3.4 mmol/l (3.3-5.1); Sodium 135 mmol/L (135-145); Total Protein 5.3 g/dL (6.5-8.0)
[2020-04-06 22:34] VITALS: BP 175/94; PULSE 66; RESP 16; TEMP 36.8; O2SAT 98
[2020-04-06 22:43] VITALS: BP 174/93; PULSE 71; RESP 18; O2SAT 98
[2020-04-06] MEDS: ALPRAZolam 0.5 MG TABLET PO (22:45)
[2020-04-06 23:48] LABS: Glucose, Whole Blood 410 mg/dL (60-115)
[2020-04-06 23:55] VITALS: BP 132/88; PULSE 82; RESP 15; O2SAT 97
--- NOTE | 2020-04-07 00:06 | PC.NURSE ---
pt ambulatory in room, iv fluids complete. pt spoke with nursing retail department supervisor. pt asking for the pill for my migraine before leaving. pt understands that she needs to hydrate often with water throughout the day to help keep her glucose level down.
[2020-04-07] MEDS: Butalb/Acetamin/Caff 50/325/40 TABLET 1 TAB PO (00:14)
== END 2020-04-07 00:38 | disposition left against medical advice (07) ==
PROVIDERS: Emergency Provider Student in an Organized Health Care Education/Training Program
DX: E11.65 Type 2 diabetes mellitus with hyperglycemia (principal); R51.9 Headache, unspecified; Z79.4 Long term (current) use of insulin; Z79.899 Other long term (current) drug therapy; F17.210 Nicotine dependence, cigarettes, uncomplicated; Z71.6 Tobacco abuse counseling; Z20.822 Contact with and (suspected) exposure to COVID-19
CPT/HCPCS: 36415; 80053; 82009; 82947; 85025; 93005; 96360; 99284

== ENCOUNTER 2020-04-15 14:44 | Outpatient (REF) | payer OTHER, SELFPAY ==
--- NOTE | ~2020-04-15 | CT_ITS ---
EXAMINATION: CHEST CT WITH CONTRAST CLINICAL INFORMATION: Non-small cell lung cancer COMPARISON: Previous chest CT scans most recent July 2019 TECHNIQUE: Axial images through the chest following 65 mL Omnipaque 350 intravenous contrast. Sagittal and coronal reconstructions on the technologist workstation were performed. Patient dose 1 7 1 mg/cm. This CT examination was performed using dose optimization techniques as appropriate, variously including the following: *Automated exposure control *Adjustment of mA and/or kV according to patient size (this includes techniques or standardized protocols for targeted exams where dose is matched to indication/reason for exam; i.e. extremities or head) *Use of iterative reconstruction technique FINDINGS: There is evidence of paraseptal emphysema. There is right upper lobe volume loss. There is central right upper lobe scarring or fibrosis and cicatrization bronchiectasis. Appearance is suggestive of post radiation change. There is scarring or subsegmental atelectasis in the posterior costophrenic sulcus of the left lower lobe. The lungs are otherwise clear. There is a 5 mm nodule or density seen adjacent to the posterior wall of the right mainstem bronchus for example axial image 55 series 504, coronal reconstructed image 42 and sagittal reconstructed image 53. This is new from previous exam. There are no enlarged hilar or mediastinal lymph nodes. There is interval decrease in soft tissue thickening and fat stranding seen in the mediastinum surrounding the trachea and proximal bilateral mainstem bronchi compared to previous exam. The heart does not appear enlarged. There is no pericardial effusion. The esophagus is unremarkable. There is no pleural effusion or pleural thickening. No chest wall mass or enlarged axillary lymph nodes are seen. There are collateral vessels seen in the left lower neck and chest wall. The liver is low in attenuation suggestive of fatty infiltration. The gallbladder has been removed. There are mild degenerative changes of the spine. CT/CT head/brain w con IMPRESSION: Emphysema. Probable post radiation change to the central right upper lobe. New 5 mm endobronchial lesion in the posterior right mainstem bronchus. This may be related to patient secretions. Short-term low-dose follow-up chest CT exam should be considered. EXAMINATION: Head CT with IV contrast CLINICAL INFORMATION: Worsening headache. History of lung cancer. COMPARISON: Previous head CT most recent 04/01/2020 TECHNIQUE: Axial images through the brain following IV contrast. Patient received 65 mL of Omnipaque 350 intravenous contrast. The head and chest. Sagittal and coronal reconstructions on the technologist workstation were performed. Patient dose 6 8 7 mg/cm. FINDINGS: There is no evidence of an extra-axial collection. There is no evidence of intra-axial or extra-axial hemorrhage. The ventricles and extra-axial CSF spaces are appropriate. Byers-white matter differentiation is normal. No mass, mass effect or infarct is seen. Review at bone windows is normal. Visualized paranasal sinuses, mastoid air cells and middle ears are clear. IMPRESSION: Unremarkable examination.
[2020-04-15] MEDS: iohexoL 350 MG/ML 100 ML INFUS..BTL IV (15:14)
[2020-04-15 15:47] LABS: MANUAL DIFF FLAG NO
[2020-04-15 15:51] LABS: Basophils Percent Auto 0.3 % (0-2); Eosinophils Absolute Auto 0.1 X10*3/uL (0.0-0.4); Eosinophils Percent Auto 0.5 % (0-4); Hematocrit 33.7 % (37-47); Hemoglobin 10.7 g/dl (12.0-16.0); Imm Gran Abs Auto 0.05 X10*3/uL (0.00-0.03); Imm Gran Pct Auto 0.5 % (0.0-0.4); Lymphocytes Absolute Auto 2.6 X10*3/uL (1.2-4.9); Lymphocytes Percent Auto 24.5 % (20-40); Mean Corpuscular HGB Conc 31.8 g/dl (31.0-35.0); Mean Corpuscular Hemoglobin 28.6 pg (27.0-33.0); Mean Corpuscular Volume 90.1 fL (80-98); Mean Platelet Volume 11.7 fL (9.4-12.3); Monocytes Absolute Auto 0.7 X10*3/uL (0.1-1.2); Monocytes Percent Auto 6.4 % (2-11); Neutrophils Absolute Auto 7.2 X10*3/uL (2.0-8.3); Neutrophils Percent Auto 67.8 % (45-73); Platelet Count 208 X10*3/uL (160-400); Red Blood Count 3.74 X10*6/uL (4.20-5.50); Red Cell Distribution Width 13.1 % (11.0-16.0); White Blood Count 10.5 X10*3/uL (4.8-10.8)
[2020-04-15 15:55] LABS: Estimated Average Glucose 217 mg/dL; Hemoglobin A1c % 9.2 %
[2020-04-15 16:17] LABS: Alanine Aminotransferase 15 U/L (0-31); Albumin Level 3.7 g/dL (3.5-5.0); Alkaline Phosphatase 90 U/L (39-117); Anion Gap 13 (12-20); Aspartate Amino Transferase 12 U/L (5-31); Bilirubin Total 0.3 mg/dL (0.0-1.0); Blood Urea Nitrogen 11 mg/dL (9-16); Calcium 8.7 mg/dL (8.4-10.2); Carbon Dioxide 27 mmol/L (22-29); Chloride 102 mmol/L (96-108); Cholesterol 180 mg/dL; Estimated Glomerular Filt Rate 58; Glucose Fasting 188 mg/dL (60-99); HDL Cholesterol 50 mg/dL; LDL Cholesterol Calculated 105 mg/dl; Potassium 3.5 mmol/L (3.3-5.1); Sodium 138 mmol/L (135-145); Total Protein 6.4 g/dL (6.5-8.0); Triglycerides 128 mg/dL
[2020-04-15 16:19] LABS: Creatinine Urine 96.13 mg/dL; Microalbumin Urine < 5.0 mg/L
[2020-04-15 16:40] LABS: Free T4 (Free Thyroxine) 0.91 ng/dL (0.71-1.85)
[2020-04-15 16:47] LABS: Vitamin B12 1463 pg/mL (200-900)
[2020-04-17 04:27] LABS: LDL Cholesterol Direct 109 mg/dL (<100)
== END 2020-04-15 14:45 | disposition home or self-care (01) ==
LOC: HO.CT 14:44
PROVIDERS: Internal Medicine Endocrinology, Diabetes & Metabolism; Visit Provider Internal Medicine Medical Oncology
DX: R51.9 Headache, unspecified (principal); C34.92 Malignant neoplasm of unspecified part of left bronchus or lung; E11.9 Type 2 diabetes mellitus without complications
CPT/HCPCS: 36415; 70460; 71260; 80053; 80061; 82043; 82607; 83036; 83721; 84439; 84443; 85025; Q9967

== ENCOUNTER 2020-05-13 20:25 | Emergency (ER) | payer OTHER, SELFPAY ==
--- NOTE | 2020-05-13 20:31 | ED_ITS ---
HPI - Headache General Chief Complaint: Headache Stated Complaint: HEADACHE Time Seen by Provider: 05/13/20 20:59 Source: patient and EMS Mode of arrival: EMS Limitations: no limitations History of Present Illness HPI Narrative: 54-year-old female with significant past medical history of opiate use disorder and is followed by pain management, asthma, arthritis, DM, radiation-induced esophagitis, colitis on mesalamine, fibromyalgia, hyper thyroidism, adrenal insufficiency on chronic prednisone, lung adenocarcinoma status post radiation currently on nivolumab presents via EMS for elevated blood sugar and migraine headache. She did not give me a specific number 4 elevated glucose, after obtaining an elevated blood sugar on her glucometer she states she contacted her oncologist and was instructed by Dr Garcia to come into the emergency department for further evaluation. She states she took diabetic medication this morning and nothing else because she kept vomiting. Patient has multiple complaints regarding nausea, vomiting, abdominal and all over body pain, however denies fevers, chills, changes in vision, dizziness, shortness of breath, and chest pain. MD elicited complaint: headache and migraine Related Data Home Medications Medication Instructions Recorded Confirmed alprazolam 1 mg PO TID PRN 12/17/19 04/01/20 bupropion HCl 300 mg PO DAILY 12/17/19 04/01/20 clonidine HCl 0.1 mg PO BEDTIME PRN 12/17/19 04/01/20 hydroxyzine pamoate 50 mg PO Q8H PRN 12/17/19 04/01/20 levetiracetam 500 mg PO BID 12/17/19 04/01/20 mesalamine 1,600 mg PO TID 12/17/19 04/01/20 omeprazole 20 mg PO BID 12/17/19 04/01/20 sucralfate 1 g PO BEDTIME 12/17/19 04/01/20 nivolumab 240 mg/24 mL intravenous 240 mg IV Q2W 03/08/20 04/28/20 solution venlafaxine 150 mg 150 mg PO DAILY 03/08/20 04/28/20 capsule,extended release 24 hr zolpidem 10 mg tablet 10 mg PO BEDTIME PRN 03/08/20 04/28/20 gabapentin 100 mg PO BID 05/12/20 05/12/20 Previous Rx's Medication Instructions Recorded blood sugar diagnostic #150 ea 12/18/19 lancets 33 gauge #150 ea 12/18/19 pen needle, diabetic 32 gauge x #400 ea 12/18/19 5 blood sugar diagnostic #150 ea 12/28/19 blood-glucose meter #1 ea 12/28/19 lancets 28 gauge #150 ea 12/28/19 blood sugar diagnostic #150 ea 01/01/20 ketorolac [Acular] 1 drp OPHTHALMIC (EYE) QID #3 ml 02/01/20 insulin aspart U-100 100 unit/mL 5 unit SUBCUT TID 30 Days #15 ml 03/24/20 (3 mL) subcutaneous pen insulin degludec 200 unit/mL (3 20 unit SUBCUT DAILY 30 Days #3 ml 03/24/20 mL) subcutaneous pen clobetasol 1 appl TOPICAL BID #45 g 05/12/20 ondansetron HCl [Zofran] 8 mg PO Q8H PRN #50 tab 05/12/20 Allergies Allergy/AdvReac Type Severity Reaction Status Date / Time acetaminophen [Tylenol] AdvReac Unknown Abdominal Verified 03/08/20 13:08 Pain ibuprofen AdvReac Unknown Abdominal Verified 03/08/20 13:08 Pain senna AdvReac Unknown Headache Verified 03/08/20 13:08 Review of Systems Review of Systems: Constitutional: Positive headache, No Fever, No Chills ENT/Mouth: No Ear Pain, No Hoarseness, No sore throat Eyes: No Eye Pain, No Swelling, No Redness, No Foreign Body Cardiovascular: No Chest Pain, No SOB Respiratory: No Cough, No Dyspnea Gastrointestinal: Positive Nausea, positive Vomiting, No Diarrhea, positive abdominal Pain Genitourinary: No Dysuria, No Hematuria Musculoskeletal: positive full body pain, No Joint Swelling Skin: No Skin lacerations, No rash Neuro: No Weakness, No Numbness, No Paresthesias, No Loss of Consciousness, No Dizziness Psych: No Anxiety/Panic, No Depression Heme/Lymph: no easy bruising, no Lymphadenopathy Endocrine: Positive elevated blood sugar Yes all other systems are reviewed and are negative [facility] Past Medical History Attestation statement: The following information was validated with the patient. Source: old records reviewed Medical History Adrenal insufficiency Adrenal insufficiency due to cancer therapy Aftercare following left shoulder joint replacement surgery Arthritis Asthma Colitis COPD (chronic obstructive pulmonary disease) Depression Fibromyalgia History of lung cancer Hypothyroidism Multinodular goiter Newly diagnosed diabetes Non-small cell carcinoma of left lung, stage 4 Opioid abuse Opioid use disorder Pancreatitis Radiation-induced esophagitis Subclinical hyperthyroidism Surgical History History of History of esophageal dilatation Hx of blepharoplasty Hx of shoulder surgery Status post cholecystectomy Family History Family History Father Pancreatic cancer Mother Diabetes Brother Diabetes Sister Diabetes Social History Social History Household Members: Children Housing: Apartment Alcohol intake: never Smoking Status: Light tobacco smoker Tobacco Type: Cigarette Cigarettes Per Day: 1 Years Smoked: 45 Smoked in Last 30 Days: No Use of substances other than those prescribed or required for medical reasons: No Advance Directives: No Advance Directives Information Provided: Yes service: No Current occupational status: unemployed and disabled Physical Exam Vital Signs: Vital Signs: Last Vital Signs Temp 98.0 F 05/13/20 23:39 Pulse 83 05/14/20 00:18 Resp 16 05/14/20 00:18 BP 115/71 05/14/20 00:18 Pulse Ox 99 05/14/20 00:18 Body Mass Index 23.0 Appearance: Alert. Oriented X3. Moderate distress. Afebrile. Eyes: Pupils equal, round and reactive to light. ENT: Pharynx normal. Neck: Normal inspection. Neck supple. CVS: Normal heart rate and rhythm. Pulses normal. Respiratory: No respiratory distress. Breath sounds normal. Abdomen: Soft and nontender. Skin: Skin warm and dry. Normal skin color. Normal skin turgor. Extremities: No lower extremity edema. Neuro: No motor deficit. No sensory deficit. Course Course Course Narrative: 54-year-old female with past medical history of diabetes, adrenal insufficiency, fibromyalgia, opioid use disorder, hyperthyroidism, non small cell lung carcinoma stage IV, presents via EMS with elevated blood sugar and headache. 8:[address] Garcia, we discussed plan of care as this patient is extraordinarily difficult to manage, she is verbally aggressive to all staff members. Patient did call Dr Kelly earlier today stated that she had a migraine and elevated blood sugar and was referred to the emergency department by Dr Kelly. Dr Kelly did call this emergency department asking if Dr Banda was working. Please note, in the past the patient has asked for several different providers when her request for IV Dilaudid was declined. This information was reported to Dr. Kelly. 9:00 p.m. discussion with patient regarding plan of care, she is asking for IV Dilaudid, she was reminded that this was not the 1st line of care for headaches, speaking to HYDROGRAPHIC ENGINEER and RN in a harsh tone. She was offered multiple treatments for migraine which includes Reglan, Benadryl, Toradol, Imitrex and sumatriptan all of which she declined. She states that the Fioricet made her hands and fingers curl up and her face was all twisted up. She stated that she almost because of this medication. She does not list Fioricet as 1 of her allergies. Patient states that she is mean to everybody because she is in pain. As this HYDROGRAPHIC ENGINEER left her room, she began crying and calling family members about the poor care that she has been receiving here. Patient has multiple documentations regarding her pain medication seeking and manipulative behavior. She does have stage IV cancer however Dr Garcia, her Oncologist, who said that while the patient has a history of lung cancer she's done fairly well and there's no reason to believe that she has pain to the extent that she should need opioids. Another documentation by another provider reports that this patient has Opioid Use Disorder manifested by continuous demands for prescribed opioids for exaggerated physical complaints and has declined other options for pain management medications. 10:12 p.m. CBC indicates H&H of 10.3/31.6 which is consistent with her prior values. 10:45 p.m. blood sugar is 250. Nursing reports that she is asking for more pain management, this request was declined. Patient upset, calling family members stating that this HYDROGRAPHIC ENGINEER is not treating her pain properly. Patient was asleep with even unlabored respirations prior to pain management request. Plan of care is to discharge home. 12:30 a.m. upon discharge, patient is ambulatory, even steady gait, no respiratory distress. Able to carry her purse and other belongings without d ifficulty while texting on her phone. MDM - Headache Differential Diagnosis Differential diagnosis: Likely migraine Medical Records Attestation: I reviewed the patient's medical records. Lab Data Attestation: I reviewed the patient's lab results. Result diagrams: 05/13/20 21:59 05/13/20 21:59 Labs: Lab Results 05/13/20 05/13/20 05/13/20 Range/Units 20:59 21:59 21:59 WBC 9.2 (4.8-10.8) X10*3/uL RBC 3.58 L (4.20-5.50) X10*6/uL Hgb 10.3 L (12.0-16.0) g/dl Hct 31.6 L (37-47) % MCV 88.3 (80-98) fL MCH 28.8 (27.0-33.0) pg MCHC 32.6 (31.0-35.0) g/dl RDW 12.6 (11.0-16.0) % Plt Count 167 (160-400) X10*3/uL MPV 12.3 (9.4-12.3) fL Immature Gran % (Auto) 1.0 H (0.0-0.4) % Neut % (Auto) 72.2 (45-73) % Lymph % (Auto) 21.8 (20-40) % Armstrong % (Auto) 4.3 (2-11) % Eos % (Auto) 0.4 (0-4) % Baso % (Auto) 0.3 (0-2) % Lymph # (Auto) 2.0 (1.2-4.9) X10*3/uL Armstrong # (Auto) 0.4 (0.1-1.2) X10*3/uL Eos # (Auto) 0.0 (0.0-0.4) X10*3/uL Baso # (Auto) 0.0 (0.0-0.2) X10*3/uL Abs Immat Gran (auto) 0.09 H (0.00-0.03) X10*3/uL Absolute Neuts (auto) 6.7 (2.0-8.3) X10*3/uL Absolute Nucleated RBC 0.000 (0.0-0.012) X10*3/uL Nucleated RBC % (auto) 0.0 (0.0-0.2) /100WBC Sodium 136 (135-145) mmol/L Potassium 4.0 (3.3-5.1) mmol/L Chloride 102 (96-108) mmol/L Carbon Dioxide 27 (22-29) mmol/L Anion Gap 11 L (12-20) BUN 8 L D (9-16) mg/dL Creatinine 0.90 (0.5-1.4) mg/dL Estim Creat Clear Calc 59.1 Estimated GFR > 60 POC Glucose 478 H* (60-115) mg/dL Random Glucose 466 H* (60-115) mg/dL Calcium 8.6 (8.4-10.2) mg/dL Total Bilirubin 0.3 (0.0-1.0) mg/dL Direct Bilirubin < 0.2 (0.0-0.5) mg/dL AST 7 D (5-31) U/L ALT 11 (0-31) U/L Alkaline Phosphatase 96 (39-117) U/L Total Protein 6.4 L (6.5-8.0) g/dL Albumin 3.8 (3.5-5.0) g/dL Lipase 11 (8-78) U/L Acetone, Qual (Negative) 05/13/20 05/13/20 05/13/20 Range/Units 21:59 22:21 23:37 WBC (4.8-10.8) X10*3/uL RBC (4.20-5.50) X10*6/uL Hgb (12.0-16.0) g/dl Hct (37-47) % MCV (80-98) fL MCH (27.0-33.0) pg MCHC (31.0-35.0) g/dl RDW (11.0-16.0) % Plt Count (160-400) X10*3/uL MPV (9.4-12.3) fL Immature Gran % (Auto) (0.0-0.4) % Neut % (Auto) (45-73) % Lymph % (Auto) (20-40) % Armstrong % (Auto) (2-11) % Eos % (Auto) (0-4) % Baso % (Auto) (0-2) % Lymph # (Auto) (1.2-4.9) X10*3/uL Armstrong # (Auto) (0.1-1.2) X10*3/uL Eos # (Auto) (0.0-0.4) X10*3/uL Baso # (Auto) (0.0-0.2) X10*3/uL Abs Immat Gran (auto) (0.00-0.03) X10*3/uL Absolute Neuts (auto) (2.0-8.3) X10*3/uL Absolute Nucleated RBC (0.0-0.012) X10*3/uL Nucleated RBC % (auto) (0.0-0.2) /100WBC Sodium (135-145) mmol/L Potassium (3.3-5.1) mmol/L Chloride (96-108) mmol/L Carbon Dioxide (22-29) mmol/L Anion Gap (12-20) BUN (9-16) mg/dL Creatinine (0.5-1.4) mg/dL Estim Creat Clear Calc Estimated GFR POC Glucose 355 H* 258 H (60-115) mg/dL Random Glucose (60-115) mg/dL Calcium (8.4-10.2) mg/dL Total Bilirubin (0.0-1.0) mg/dL Direct Bilirubin (0.0-0.5) mg/dL AST (5-31) U/L ALT (0-31) U/L Alkaline Phosphatase (39-117) U/L Total Protein (6.5-8.0) g/dL Albumin (3.5-5.0) g/dL Lipase (8-78) U/L Acetone, Qual Negative (Negative) Discharge Plan Discharge Clinical Impression: Opioid abuse, High blood sugar Migraine Qualifiers: Migraine type: unspecified Status migrainosus presence: without status migrainosus Intractability: intractable Qualified Code(s): G43.919 - Migraine, unspecified, intractable, without status migrainosus Patient Disposition: Home, Self-Care Instructions: Migraine Headache (ED) Additional Instructions: You were evaluated for headache after chemotherapy. Please continue to follow- up with oncology as directed. For your elevated blood sugar we gave you 10 units of subcu insulin. Please continue to take your diabetic medications as prescribed. Thank you for choosing this emergency department for evaluation. Please follow-up with primary care physician as needed. Return to the emergency department for any new, concerning, or worsening symptoms. Prescriptions: No Action (DME) blood-glucose meter [FreeStyle Lite Meter] Kit See Rx Instructions .ROUTE .MEDSUPPLY Qty: 1 RF: 0 (DME) FreeStyle Test Strip See Rx Instructions .ROUTE .MEDSUPPLY Qty: 150 RF: 6 (DME) lancets [FreeStyle Lancets] 28 gauge misc See Rx Instructions .ROUTE .MEDSUPPLY Qty: 150 RF: 6 (DME) FreeStyle Lite Strips Strip See Rx Instructions .ROUTE .MEDSUPPLY Qty: 150 RF: 6 clonidine HCl 0.1 mg tablet 0.1 mg PO BEDTIME PRN (Reason: high blood pressure) RF: 0 alprazolam 1 mg tablet 1 mg PO TID PRN (Reason: Anxiety) RF: 0 hydroxyzine pamoate 50 mg capsule 50 mg PO Q8H PRN (Reason: Anxiety) RF: 0 bupropion HCl 300 mg tablet extended release 24 hr 300 mg PO DAILY RF: 0 levetiracetam 500 mg tablet 500 mg PO BID RF: 0 sucralfate 1 gram tablet 1 g PO BEDTIME RF: 0 omeprazole 20 mg capsule,delayed release(DR/EC) 20 mg PO BID RF: 0 mesalamine 800 mg tablet,delayed release (DR/EC) 1,600 mg PO TID RF: 0 gabapentin 100 mg Tablet 100 mg PO BID RF: 0 ondansetron HCl [Zofran] 4 mg Tablet 8 mg PO Q8H PRN (Reason: Nausea And Vomiting) Qty: 50 RF: 6 clobetasol 0.025 % Cream 1 appl TOPICAL BID Qty: 45 RF: 3 ketorolac [Acular] 0.5 % drops 1 drp ophthalmic (eye) QID Qty: 3 RF: 0 Opdivo 240 mg/24 mL solution 240 mg IV Q2W RF: 0 venlafaxine 150 mg capsule,extended release 24hr 150 mg PO DAILY RF: 0 zolpidem 10 mg tablet 10 mg PO BEDTIME PRN (Reason: Sleep) RF: 0 insulin aspart U-100 [Novolog Flexpen U-100 Insulin] 100 unit/mL (3 mL) insulin pen 5 unit subcut TID 30 Days Qty: 15 RF: 4 Tresiba FlexTouch U-200 200 unit/mL (3 mL) insulin pen 20 unit subcut DAILY 30 Days Qty: 3 RF: 6 (DME) pen needle, diabetic [BD Mireya 2nd Gen Pen Needle] 32 gauge x 5/32 needle See Rx Instructions .ROUTE .MEDSUPPLY Qty: 400 RF: 4 (DME) OneTouch Verio test strips Strip See Rx Instructions .ROUTE .MEDSUPPLY Qty: 150 RF: 6 (DME) lancets [OneTouch Delica Lancets] 33 gauge misc See Rx Instructions .ROUTE .MEDSUPPLY Qty: 150 RF: 6 Interventions: ED Discharge Assessment Last Done: 05/14/20 00:22 Discharge Date/Time: 05/14/20 00:24
[2020-05-13 20:50] VITALS: BP 151/90; PULSE 81; RESP 18; TEMP 36.7; O2SAT 98; BMI 23.0
[2020-05-13 21:03] LABS: Glucose, Whole Blood 478 mg/dL (60-115)
[2020-05-13] MEDS: Insulin Lispro 100 UNIT/ML 3 ML VIAL 10 UNIT SUBCUT (21:14)
[2020-05-13] MEDS: diphenhydrAMINE HCL 50 MG/ML VIAL 12.5 MG IVPUSH (21:15)
[2020-05-13] MEDS: 0.9 % Sodium Chloride 1,000 ML 999 ML IVCONT (21:18)
[2020-05-13] MEDS: Metoclopramide HCl 10 MG/2 ML VIAL IVPUSH (21:19)
[2020-05-13 21:22] VITALS: BP 175/98; PULSE 84; RESP 18; O2SAT 98
[2020-05-13 21:36] VITALS: BP 98/54; PULSE 82; RESP 17; O2SAT 99
[2020-05-13 22:06] LABS: MANUAL DIFF FLAG NO
[2020-05-13 22:11] LABS: Basophils Percent Auto 0.3 % (0-2); Eosinophils Percent Auto 0.4 % (0-4); Hematocrit 31.6 % (37-47); Hemoglobin 10.3 g/dl (12.0-16.0); Imm Gran Abs Auto 0.09 X10*3/uL (0.00-0.03); Lymphocytes Percent Auto 21.8 % (20-40); Mean Corpuscular HGB Conc 32.6 g/dl (31.0-35.0); Mean Corpuscular Hemoglobin 28.8 pg (27.0-33.0); Mean Corpuscular Volume 88.3 fL (80-98); Mean Platelet Volume 12.3 fL (9.4-12.3); Monocytes Absolute Auto 0.4 X10*3/uL (0.1-1.2); Monocytes Percent Auto 4.3 % (2-11); Neutrophils Absolute Auto 6.7 X10*3/uL (2.0-8.3); Neutrophils Percent Auto 72.2 % (45-73); Platelet Count 167 X10*3/uL (160-400); Red Blood Count 3.58 X10*6/uL (4.20-5.50); Red Cell Distribution Width 12.6 % (11.0-16.0); White Blood Count 9.2 X10*3/uL (4.8-10.8)
[2020-05-13 22:22] VITALS: BP 121/72; PULSE 82; RESP 16; O2SAT 98
[2020-05-13 22:25] LABS: Acetone, serum QL Negative (Negative)
[2020-05-13 22:30] LABS: Glucose, Whole Blood 355 mg/dL (60-115)
[2020-05-13 22:38] LABS: Alanine Aminotransferase 11 U/L (0-31); Albumin Level 3.8 g/dL (3.5-5.0); Alkaline Phosphatase 96 U/L (39-117); Anion Gap 11 (12-20); Aspartate Amino Transferase 7 U/L (5-31); Bilirubin Direct < 0.2 mg/dL (0.0-0.5); Bilirubin Total 0.3 mg/dL (0.0-1.0); Blood Urea Nitrogen 8 mg/dL (9-16); Calcium 8.6 mg/dL (8.4-10.2); Carbon Dioxide 27 mmol/L (22-29); Chloride 102 mmol/L (96-108); Creatinine Clr Calc Pharmacy 59.1; Estimated Glomerular Filt Rate > 60; Glucose Random 466 mg/dL (60-115); Lipase 11 U/L (8-78); Sodium 136 mmol/L (135-145); Total Protein 6.4 g/dL (6.5-8.0)
--- NOTE | 2020-05-13 22:42 | PC.NURSE ---
pt is sleeping, rr even and reg, no s/s of distress, prior to falling asleep pt was talking on her phone, gets tearful when you enter the room then settles down after you leave. provider is aware of how the pt is reacting while in the ed. pt has towel over her face, ivf infusing and new well.
[2020-05-13 23:39] VITALS: BP 106/67; PULSE 82; RESP 16; TEMP 36.7; O2SAT 99
[2020-05-13 23:43] LABS: Glucose, Whole Blood 258 mg/dL (60-115)
[2020-05-14 00:18] VITALS: BP 115/71; PULSE 83; RESP 16; O2SAT 99
== END 2020-05-14 00:24 | disposition home or self-care (01) ==
PROVIDERS: Nurse Practitioner Family; Emergency Provider Internal Medicine; PCP Nurse Practitioner Family
DX: G43.919 Migraine, unspecified, intractable, without status migrainosus (principal); E11.9 Type 2 diabetes mellitus without complications; F11.20 Opioid dependence, uncomplicated; F17.210 Nicotine dependence, cigarettes, uncomplicated; J45.909 Unspecified asthma, uncomplicated; E27.40 Unspecified adrenocortical insufficiency; Z76.5 Malingerer [conscious simulation]; Z79.52 Long term (current) use of systemic steroids; Z85.118 Personal history of other malignant neoplasm of bronchus and lung
CPT/HCPCS: 36415; 80048; 80076; 82009; 82947; 83690; 85025; 96361; 96372; 96374; 96375; 99284; J1200; J2765

== ENCOUNTER → 2020-05-24 10:34 | Outpatient (BNVA) | payer OTHER, SELFPAY | PROVIDERS: PCP Nurse Practitioner Family; Visit Provider Dietitian, Registered ==

== ENCOUNTER 2020-05-25 09:00 | Emergency (ER) | payer OTHER, SELFPAY ==
--- NOTE | ~2020-05-25 | US_ITS ---
EXAMINATION: US VENOUS ULTRASOUND WITH DOPPLER LOWER EXTREMITY, BILATERAL CLINICAL INFORMATION: Bilateral lower extremity edema. COMPARISON: None TECHNIQUE: Ultrasound of the deep veins is performed from the hip to the calf with compression sonography and color and pulse Doppler assessment. Spectral analysis with color-flow imaging is performed. FINDINGS: RIGHT: There is normal venous compression and respiratory variation and augmented flow. The visualized common femoral vein, superficial femoral vein, profunda femoral vein, popliteal vein, and the trifurcation region shows no evidence of deep venous thrombosis. There is no significant popliteal fossa cyst. LEFT: There is normal venous compression and respiratory variation and augmented flow. The visualized common femoral vein, superficial femoral vein, profunda femoral vein, popliteal vein, and the trifurcation region shows no evidence of deep venous thrombosis. There is no significant popliteal fossa cyst. If the patient's symptoms persist, followup ultrasound in 5 days 7 days might be of value to exclude proximal propagation from a non-visualized calf vein. US/US venous duplex LE BI IMPRESSION: No DVT demonstrated in the bilateral lower extremity.
--- NOTE | ~2020-05-25 | XR_ITS ---
EXAMINATION: XR CHEST CLINICAL INFORMATION: Hyperglycemia. COMPARISON: None TECHNIQUE: 2 views of the chest were obtained. FINDINGS: No significant abnormality is noted involving the heart, lungs, mediastinum, bony thorax or soft tissues. XR/XR chest 2V IMPRESSION: Unremarkable chest examination.
[2020-05-25 09:10] VITALS: BP 123/68; BP 128/57; PULSE 69; PULSE 87; RESP 14; TEMP 36.7; O2SAT 97; O2SAT 99; BMI 23.0
[2020-05-25 09:20] LABS: Glucose, Whole Blood 501 mg/dL (60-115)
[2020-05-25] MEDS: 0.9 % Sodium Chloride 1,000 ML 999 ML IVCONT ×2 (09:30→13:21)
--- NOTE | 2020-05-25 09:30 | ECG_ITS ---
Normal sinus rhythm Possible Left atrial enlargement Borderline ECG When compared [facility] OFFICE MACHINE TECHNICIAN of 06-Apr-2020 21:33 No significant change was found MTDD
[2020-05-25 09:49] LABS: MANUAL DIFF FLAG NO
--- NOTE | 2020-05-25 09:50 | ED_ITS ---
HPI - General Adult General Chief complaint: General Medical Stated complaint: hypergylcemia,[id number] Time Seen by Provider: 05/25/20 09:13 Source: patient and EMS Mode of arrival: EMS Limitations: no limitations History of Present Illness HPI narrative: 55-year-old Female with a past medical history of opioid use dis order followed by pain management, asthma, arthritis, diabetes, radiation induced esophagitis, colitis on mesalamine, fibromyalgia, hyperthyroidism, adrenal insufficiency on chronic prednisone, lung adenocarcinoma status post radiation currently on nivolumab biweekly (last dose ) here with m ultiple complaints. She reports that after her chemo she usually has hyperglycemia despite taking her 20 units of every a.m. and p.m. she also reports when she has hyperglycemia she gets migraine headaches and cannot take anything [id number] as she is allergic to Motrin and Tylenol therefore she came here. She reports her glucometer reading of (high) this a.m. prior to arrival then she took her 20 units of Humalog after. Reports the migraine headache is in the frontal aspect and is similar to her prior migraine headaches. Reports she has associated body aches and bilateral lower extremity edema for the past few days worse today. Reports she was seen at [facility] yesterday for hyperglycemia and headaches and they sent her home without giving any proper treatment per patient and without treating her headache. She reports they also tested her for COVID yesterday at [facility] and she was negative. She denies any fevers, chills, dizziness, changes in vision, neck pain/neck stiffness, chest pain, palpitations, shortness of breath, dyspnea on exertion, orthopnea, nausea/vomiting, abdominal pain, back pain, dysuria, hematuria, vaginal discharge, diarrhea or constipation or any other symptoms complaints or concerns at this time. - patient reports she had her 2nd COVID vaccine last week. - On arrival the patient's blood glucose level is 501. She was not given anything by EMS. complaint: Hyperglycemia Onset (ago): day(s) Related Data Home Medications Medication Instructions Recorded Confirmed alprazolam 1 mg PO TID PRN 12/17/19 04/01/20 bupropion HCl 300 mg PO DAILY 12/17/19 04/01/20 clonidine HCl 0.1 mg PO BEDTIME PRN 12/17/19 04/01/20 hydroxyzine pamoate 50 mg PO Q8H PRN 12/17/19 04/01/20 levetiracetam 500 mg PO BID 12/17/19 04/01/20 mesalamine 1,600 mg PO TID 12/17/19 04/01/20 omeprazole 20 mg PO BID 12/17/19 04/01/20 sucralfate 1 g PO BEDTIME 12/17/19 04/01/20 nivolumab 240 mg/24 mL intravenous 240 mg IV Q2W 03/08/20 04/28/20 solution venlafaxine 150 mg 150 mg PO DAILY 03/08/20 04/28/20 capsule,extended release 24 hr zolpidem 10 mg tablet 10 mg PO BEDTIME PRN 03/08/20 04/28/20 gabapentin 100 mg PO BID 05/12/20 05/12/20 Previous Rx's Medication Instructions Recorded blood sugar diagnostic #150 ea 12/18/19 lancets 33 gauge #150 ea 12/18/19 pen needle, diabetic 32 gauge x #400 ea 12/18/19 blood sugar diagnostic #150 ea 12/28/19 blood-glucose meter #1 ea 12/28/19 lancets 28 gauge #150 ea 12/28/19 blood sugar diagnostic #150 ea 01/01/20 ketorolac [Acular] 1 drp OPHTHALMIC (EYE) QID #3 ml 02/01/20 insulin aspart U-100 100 unit/mL 5 unit SUBCUT TID 30 Days #15 ml 03/24/20 (3 mL) subcutaneous pen insulin degludec 200 unit/mL (3 20 unit SUBCUT DAILY 30 Days #3 ml 03/24/20 mL) subcutaneous pen clobetasol 1 appl TOPICAL BID #45 g 05/12/20 ondansetron HCl [Zofran] 8 mg PO Q8H PRN #50 tab 05/12/20 Allergies Allergy/AdvReac Type Severity Reaction Status Date / Time acetaminophen [Tylenol] AdvReac Unknown Abdominal Verified 03/08/20 13:08 Pain ibuprofen AdvReac Unknown Abdominal Verified 03/08/20 13:08 Pain senna AdvReac Unknown Headache Verified 03/08/20 13:08 Review of Systems Review of Systems: Constitutional : No changes in activity, No lethargy, No recent prior head injury, No agitation, No increased fussiness ENT/Mouth : No Ear Pain, No Nasal discharge/drainage Eyes: No Eye Pain, No Swelling, No Redness, No Foreign Body, No Vision Changes Cardiovascular : No Chest Pain, No SOB Respiratory : No Cough Gastrointestinal : No Nausea, No Vomiting, No abdominal Pain Genitourinary : No Dysuria, No Urinary Frequency, No Urinary Incontinence, No Urgency, No Flank Pain Musculoskeletal : + lower extremity swelling, + body aches, No joint pain, No neck stiffness, No back pain/injury Skin : No lacerations Neuro : + Headache, No unsteady gait, No Paresthesias, No Loss of Consciousness, No altered mental status, No dizziness Denies past medical history of HIV, recent trauma, coagulopathy, recent spinal/ epidural procedure, new medication, URI symptoms, close contacts with similar symptoms, tick bite, or known CO2 exposure. Yes all other systems are reviewed and are negative [facility] Past Medical History Attestation statement: The following information was validated with the patient. Medical History Adrenal insufficiency Adrenal insufficiency due to cancer therapy Aftercare following left shoulder joint replacement surgery Arthritis Asthma Colitis COPD (chronic obstructive pulmonary disease) Depression Fibromyalgia History of lung cancer Hypothyroidism Multinodular goiter Newly diagnosed diabetes Non-small cell carcinoma of left lung, stage 4 Opioid abuse Opioid use disorder Pancreatitis Radiation-induced esophagitis Subclinical hyperthyroidism Surgical History History of History of esophageal dilatation Hx of blepharoplasty Hx of shoulder surgery Status post cholecystectomy Family History Family History Father Pancreatic cancer Mother Diabetes Brother Diabetes Sister Diabetes Social History Social History Household Members: Children Housing: Apartment Alcohol intake: never Smoking Status: Current some day smoker Tobacco Type: Cigarette Cigarettes Per Day: 1 Years Smoked: 45 Use of substances other than those prescribed or required for medical reasons: No Advance Directives: No Advance Directives Information Provided: No service: No Current occupational status: unemployed and disabled Physical Exam Vital Signs: Vital Signs: Last Vital Signs Temp 98.1 F 05/25/20 09:10 Pulse 76 05/25/20 13:27 Resp 14 05/25/20 10:37 BP 132/78 05/25/20 13:27 Pulse Ox 97 05/25/20 13:27 Body Mass Index 23.0 Vital signs have been reviewed as normal and appeared to be correct. Blood pressure normal. Heart rate normal. Respiration rate normal. Temperature normal. Oxygen saturation normal. Appearance: Alert. Oriented X3. No acute distress. Head: Normal external exam. Normocephalic. Atraumatic. Able to rotate head bilaterally. No temporal artery tenderness. Eyes: PERRLA. EOMI. No nystagmus noted. Conjunctiva and sclera normal. Eyelids normal. Corneal reflex normal. ENT: EAC normal. TM's Normal. Hearing normal. Pharynx normal. Uvula midline. tongue midline. Moist mucous membranes. No trismus noted. No drooling noted. No muffled voice noted. Neck: Normal inspection. Neck supple. FROM. No adenopathy. Thyroid Normal. No meningeal signs. No neck mass noted. CVS: Normal heart rate and rhythm. Heart sound normal. No murmurs noted. Pulses normal throughout. Respiratory: No respiratory distress. Painless inspiration. Breath sounds normal. No wheezes/rales/rhonchi noted. Chest nontender. No accessory muscle usage noted or decreased air movement noted. Back: Full range of motion noted. Skin: Skin warm and dry. Normal skin color. Normal skin turgor. No rashes/lesions/lacerations noted. Extremities: Extremities exhibit normal range of motion. Extremities nontender. Able to shrug shoulders bilaterally and keep up against resistance. Neuro: Oriented X 3. No motor deficit. No sensory deficit. Reflexes normal. Moving all extremities. No focal motor deficits. Cranial nerves II-XI intact bilaterally. Facial strength normal. Normal cognition. Speech normal. Gait normal. Strength 5/5 throughout. No pronator drift. No tremor noted. No fasciculations noted. Muscle tone normal throughout. Course Course Course Narrative: 55-year-old female with multiple complaints. The patient tells me that she has hyperglycemia after her chemotherapy. Received chemotherapy on . Took her 20 units of Humalog after taking her blood sugar that read high this morning. On arrival her blood sugar was in the 500s. She was not given anything by EMS. Reports associated headache, body aches and bilateral lower extremity edema for the past few days worse today. Reports that the headaches are consistent with her migraine headaches. Reports that she usually gets Dilaudid for her headaches due to Motrin Tylenol or anything else does not help for the headaches. On exam patient is alert and oriented x3. Not in any acute distress. No focal neuro deficits noted. Vital signs are stable within normal limits. Patient is afebrile. No temporal artery tenderness noted. No neck stiffness/neck pain. Not consistent with meningitis. Lungs clear to auscultation. CV RRR. Abdomen is soft and nontender. Patient mild +1 pitting edema to lower extremity. No calf tenderness noted. Pulses are intact bilaterally and distally in all 4 extremities. - labs obtained and patient mild baseline anemia. Sodium 131. Anion gap 10. Blood glucose 571. All other labs are within normal limits. EKG is normal sinus rhythm no acute ischemic changes noted. Chest x-ray within normal limits no acute processes noted.. Bilateral venous duplex ultrasound negative for any DVTs or any other acute processes. Patient is still receiving the L of IV fluids and reports that her headache is mildly improved after the 1 mg of Dil audid. Will recheck the patient's blood glucose level after her IV fluids are completed and either give insulin if indicated although if at an appropriate level will DC home with instructions to return if any new or worsening symptoms to follow up with primary care provider. Patient understands agrees with this plan. Reevaluation(s) Reevaluation #1: - patient's blood glucose after 2 L of IV fluids is 318 therefore will give 6 units of IV insulin and give another 1 mg of Dilaudid as patient reports her headache is still present and DC home with instructions return if any new or worsening symptoms to follow up with primary care provider to adjust her insulin dosing especially when she is going to have chemo to prevent emergency room visits. Patient understands agrees with this plan. Time: 14:10 Medical Decision Making Medical Records Medical records reviewed: Yes I reviewed the patient's medical records. Lab Data Lab results reviewed: Yes I reviewed the patient's lab results. Result diagrams: 05/25/20 09:43 05/25/20 09:43 Labs: Lab Results 05/25/20 05/25/20 05/25/20 Range/Units 09:10 09:43 09:43 WBC 6.9 (4.8-10.8) X10*3/uL RBC 3.73 L (4.20-5.50) X10*6/uL Hgb 10.5 L (12.0-16.0) g/dl Hct 32.9 L (37-47) % MCV 88.2 (80-98) fL MCH 28.2 (27.0-33.0) pg MCHC 31.9 (31.0-35.0) g/dl RDW 12.5 (11.0-16.0) % Plt Count 165 (160-400) X10*3/uL MPV 11.7 (9.4-12.3) fL Immature Gran % (Auto) 0.4 (0.0-0.4) % Neut % (Auto) 59.1 (45-73) % Lymph % (Auto) 29.5 (20-40) % [place] % (Auto) 7.6 (2-11) % Eos % (Auto) 2.7 (0-4) % Baso % (Auto) 0.7 (0-2) % Lymph # (Auto) 2.1 (1.2-4.9) X10*3/uL [place] # (Auto) 0.5 (0.1-1.2) X10*3/uL Eos # (Auto) 0.2 (0.0-0.4) X10*3/uL Baso # (Auto) 0.1 (0.0-0.2) X10*3/uL Abs Immat Gran (auto) 0.03 (0.00-0.03) X10*3/uL Absolute Neuts (auto) 4.1 (2.0-8.3) X10*3/uL Absolute Nucleated RBC 0.000 (0.0-0.012) X10*3/uL Nucleated RBC % (auto) 0.0 (0.0-0.2) /100WBC Hold Purple Top PT 12.1 (10.8-13.0) SEC INR 1.0 (0.9-1.1) Sodium (135-145) mmol/L Potassium (3.3-5.1) mmol/L Chloride (96-108) mmol/L Carbon Dioxide (22-29) mmol/L Anion Gap (12-20) BUN (9-16) mg/dL Creatinine (0.5-1.4) mg/dL Estim Creat Clear Calc Estimated GFR POC Glucose 501 H* (60-115) mg/dL Random Glucose (60-115) mg/dL Calcium (8.4-10.2) mg/dL Magnesium (1.6-2.6) mg/dL Total Bilirubin (0.0-1.0) mg/dL Direct Bilirubin (0.0-0.5) mg/dL AST (5-31) U/L ALT (0-31) U/L Alkaline Phosphatase (39-117) U/L B-Natriuretic Peptide (<100) pg/mL Total Protein (6.5-8.0) g/dL Albumin (3.5-5.0) g/dL Acetone, Qual (Negative) Coronavirus (PCR) (Negative) Influenza Type A (PCR) (Negative) Influenza Type B (PCR) (Negative) RSV RNA Qual (PCR) (Negative) 05/25/20 05/25/20 05/25/20 Range/Units 09:43 09:43 09:43 WBC (4.8-10.8) X10*3/uL RBC (4.20-5.50) X10*6/uL Hgb (12.0-16.0) g/dl Hct (37-47) % MCV (80-98) fL MCH (27.0-33.0) pg MCHC (31.0-35.0) g/dl RDW (11.0-16.0) % Plt Count (160-400) X10*3/uL MPV (9.4-12.3) fL Immature Gran % (Auto) (0.0-0.4) % Neut % (Auto) (45-73) % Lymph % (Auto) (20-40) % [place] % (Auto) (2-11) % Eos % (Auto) (0-4) % Baso % (Auto) (0-2) % Lymph # (Auto) (1.2-4.9) X10*3/uL [place] # (Auto) (0.1-1.2) X10*3/uL Eos # (Auto) (0.0-0.4) X10*3/uL Baso # (Auto) (0.0-0.2) X10*3/uL Abs Immat Gran (auto) (0.00-0.03) X10*3/uL Absolute Neuts (auto) (2.0-8.3) X10*3/uL Absolute Nucleated RBC (0.0-0.012) X10*3/uL Nucleated RBC % (auto) (0.0-0.2) /100WBC Hold Purple Top SEE NOTE PT (10.8-13.0) SEC INR (0.9-1.1) Sodium 131 L (135-145) mmol/L Potassium 4.0 (3.3-5.1) mmol/L Chloride 98 (96-108) mmol/L Carbon Dioxide 27 (22-29) mmol/L Anion Gap 10 L (12-20) BUN 11 (9-16) mg/dL Creatinine 1.01 (0.5-1.4) mg/dL Estim Creat Clear Calc 52.0 Estimated GFR 57 POC Glucose (60-115) mg/dL Random Glucose 571 H* (60-115) mg/dL Calcium 9.0 (8.4-10.2) mg/dL Magnesium 1.8 (1.6-2.6) mg/dL Total Bilirubin 0.5 (0.0-1.0) mg/dL Direct Bilirubin < 0.2 (0.0-0.5) mg/dL AST 8 (5-31) U/L ALT 8 (0-31) U/L Alkaline Phosphatase 112 (39-117) U/L B-Natriuretic Peptide 26 (<100) pg/mL Total Protein 6.2 L (6.5-8.0) g/dL Albumin 3.6 (3.5-5.0) g/dL Acetone, Qual (Negative) Coronavirus (PCR) (Negative) Influenza Type A (PCR) (Negative) Influenza Type B (PCR) (Negative) RSV RNA Qual (PCR) (Negative) 05/25/20 05/25/20 05/25/20 Range/Units 09:44 12:08 12:55 WBC (4.8-10.8) X10*3/uL RBC (4.20-5.50) X10*6/uL Hgb (12.0-16.0) g/dl Hct (37-47) % MCV (80-98) fL MCH (27.0-33.0) pg MCHC (31.0-35.0) g/dl RDW (11.0-16.0) % Plt Count (160-400) X10*3/uL MPV (9.4-12.3) fL Immature Gran % (Auto) (0.0-0.4) % Neut % (Auto) (45-73) % Lymph % (Auto) (20-40) % [place] % (Auto) (2-11) % Eos % (Auto) (0-4) % Baso % (Auto) (0-2) % Lymph # (Auto) (1.2-4.9) X10*3/uL [place] # (Auto) (0.1-1.2) X10*3/uL Eos # (Auto) (0.0-0.4) X10*3/uL Baso # (Auto) (0.0-0.2) X10*3/uL Abs Immat Gran (auto) (0.00-0.03) X10*3/uL Absolute Neuts (auto) (2.0-8.3) X10*3/uL Absolute Nucleated RBC (0.0-0.012) X10*3/uL Nucleated RBC % (auto) (0.0-0.2) /100WBC Hold Purple Top PT (10.8-13.0) SEC INR (0.9-1.1) Sodium (135-145) mmol/L Potassium (3.3-5.1) mmol/L Chloride (96-108) mmol/L Carbon Dioxide (22-29) mmol/L Anion Gap (12-20) BUN (9-16) mg/dL Creatinine (0.5-1.4) mg/dL Estim Creat Clear Calc Estimated GFR POC Glucose 334 H (60-115) mg/dL Random Glucose (60-115) mg/dL Calcium (8.4-10.2) mg/dL Magnesium (1.6-2.6) mg/dL Total Bilirubin (0.0-1.0) mg/dL Direct Bilirubin (0.0-0.5) mg/dL AST (5-31) U/L ALT (0-31) U/L Alkaline Phosphatase (39-117) U/L B-Natriuretic Peptide (<100) pg/mL Total Protein (6.5-8.0) g/dL Albumin (3.5-5.0) g/dL Acetone, Qual Negative (Negative) Coronavirus (PCR) NEGATIVE (Negative) Influenza Type A (PCR) NEGATIVE (Negative) Influenza Type B (PCR) NEGATIVE (Negative) RSV RNA Qual (PCR) NEGATIVE (Negative) 05/25/20 Range/Units 13:20 WBC (4.8-10.8) X10*3/uL RBC (4.20-5.50) X10*6/uL Hgb (12.0-16.0) g/dl Hct (37-47) % MCV (80-98) fL MCH (27.0-33.0) pg MCHC (31.0-35.0) g/dl RDW (11.0-16.0) % Plt Count (160-400) X10*3/uL MPV (9.4-12.3) fL Immature Gran % (Auto) (0.0-0.4) % Neut % (Auto) (45-73) % Lymph % (Auto) (20-40) % [place] % (Auto) (2-11) % Eos % (Auto) (0-4) % Baso % (Auto) (0-2) % Lymph # (Auto) (1.2-4.9) X10*3/uL [place] # (Auto) (0.1-1.2) X10*3/uL Eos # (Auto) (0.0-0.4) X10*3/uL Baso # (Auto) (0.0-0.2) X10*3/uL Abs Immat Gran (auto) (0.00-0.03) X10*3/uL Absolute Neuts (auto) (2.0-8.3) X10*3/uL Absolute Nucleated RBC (0.0-0.012) X10*3/uL Nucleated RBC % (auto) (0.0-0.2) /100WBC Hold Purple Top PT (10.8-13.0) SEC INR (0.9-1.1) Sodium (135-145) mmol/L Potassium (3.3-5.1) mmol/L Chloride (96-108) mmol/L Carbon Dioxide (22-29) mmol/L Anion Gap (12-20) BUN (9-16) mg/dL Creatinine (0.5-1.4) mg/dL Estim Creat Clear Calc Estimated GFR POC Glucose 318 H (60-115) mg/dL Random Glucose (60-115) mg/dL Calcium (8.4-10.2) mg/dL Magnesium (1.6-2.6) mg/dL Total Bilirubin (0.0-1.0) mg/dL Direct Bilirubin (0.0-0.5) mg/dL AST (5-31) U/L ALT (0-31) U/L Alkaline Phosphatase (39-117) U/L B-Natriuretic Peptide (<100) pg/mL Total Protein (6.5-8.0) g/dL Albumin (3.5-5.0) g/dL Acetone, Qual (Negative) Coronavirus (PCR) (Negative) Influenza Type A (PCR) (Negative) Influenza Type B (PCR) (Negative) RSV RNA Qual (PCR) (Negative) Imaging Data Chest x-ray: Attestation: I personally reviewed and interpreted this imaging study as follows: Radiologist's impression: FINDINGS: No significant abnormality is noted involving the heart, lungs, mediastinum, bony thorax or soft tissues. XR/XR chest 2V IMPRESSION: Unremarkable chest examination. ECG Data Attestation: I personally reviewed and interpreted this ECG as follows: Interpretation: Normal sinus rhythm in her trich rate of 83 with left atrial enlargement normal QRS duration normal QT/QTC interval. No acute ischemic changes noted. Similar compared to prior EKG on 04/06/2020 Critical Care Time Critical Care Time Critical Care Time: Yes Total Critical Care Time: 60 Attestation: I personally attest to this time spent taking care of the patient Discharge Plan Discharge Clinical Impression: Acute hyperglycemia, Acute hyponatremia, Headache, migraine Patient Disposition: Home, Self-Care Instructions: Migraine Headache (ED), Hyponatremia (ED), Nondiabetic Hyperglycemia (ED) Additional Instructions: You should contact your primary care provider/stapler machine and let them know that every time you have chemotherapy your blood glucose levels are over 500 despite being on 20 units of Humalog twice a day to prevent emergency room visits. Return if any new or worsening symptoms and follow up with her primary care provider as scheduled. Prescriptions: No Action (DME) blood-glucose meter [FreeStyle Lite Meter] Kit See Rx Instructions .ROUTE .MEDSUPPLY Qty: 1 RF: 0 (DME) FreeStyle Test Strip See Rx Instructions .ROUTE .MEDSUPPLY Qty: 150 RF: 6 (DME) lancets [FreeStyle Lancets] 28 gauge misc See Rx Instructions .ROUTE .MEDSUPPLY Qty: 150 RF: 6 (DME) FreeStyle Lite Strips Strip See Rx Instructions .ROUTE .MEDSUPPLY Qty: 150 RF: 6 clonidine HCl 0.1 mg tablet 0.1 mg PO BEDTIME PRN (Reason: high blood pressure) RF: 0 alprazolam 1 mg tablet 1 mg PO TID PRN (Reason: Anxiety) RF: 0 hydroxyzine pamoate 50 mg capsule 50 mg PO Q8H PRN (Reason: Anxiety) RF: 0 bupropion HCl 300 mg tablet extended release 24 hr 300 mg PO DAILY RF: 0 levetiracetam 500 mg tablet 500 mg PO BID RF: 0 sucralfate 1 gram tablet 1 g PO BEDTIME RF: 0 omeprazole 20 mg capsule,delayed release(DR/EC) 20 mg PO BID RF: 0 mesalamine 800 mg tablet,delayed release (DR/EC) 1,600 mg PO TID RF: 0 gabapentin 100 mg Tablet 100 mg PO BID RF: 0 ondansetron HCl [Zofran] 4 mg Tablet 8 mg PO Q8H PRN (Reason: Nausea And Vomiting) Qty: 50 RF: 6 clobetasol 0.025 % Cream 1 appl TOPICAL BID Qty: 45 RF: 3 ketorolac [Acular] 0.5 % drops 1 drp ophthalmic (eye) QID Qty: 3 RF: 0 Opdivo 240 mg/24 mL solution 240 mg IV Q2W RF: 0 venlafaxine 150 mg capsule,extended release 24hr 150 mg PO DAILY RF: 0 zolpidem 10 mg tablet 10 mg PO BEDTIME PRN (Reason: Sleep) RF: 0 insulin aspart U-100 [Novolog Flexpen U-100 Insulin] 100 unit/mL (3 mL) insulin pen 5 unit subcut TID 30 Days Qty: 15 RF: 4 Tresiba FlexTouch U-200 200 unit/mL (3 mL) insulin pen 20 unit subcut DAILY 30 Days Qty: 3 RF: 6 (DME) pen needle, diabetic [BD Mireya 2nd Gen Pen Needle] 32 gauge x 5/32 needle See Rx Instructions .ROUTE .MEDSUPPLY Qty: 400 RF: 4 (DME) OneTouch Verio test strips Strip See Rx Instructions .ROUTE .MEDSUPPLY Qty: 150 RF: 6 (DME) lancets [OneTouch Delica Lancets] 33 gauge misc See Rx Instructions .ROUTE .MEDSUPPLY Qty: 150 RF: 6 Referrals: Physician,Unknown [Primary Care Provider] - 2 days (Your PCP) Print Language: Luxem[place]ish
[2020-05-25 09:51] LABS: Basophils Absolute Auto 0.1 X10*3/uL (0.0-0.2); Basophils Percent Auto 0.7 % (0-2); Eosinophils Absolute Auto 0.2 X10*3/uL (0.0-0.4); Eosinophils Percent Auto 2.7 % (0-4); Hematocrit 32.9 % (37-47); Hemoglobin 10.5 g/dl (12.0-16.0); Imm Gran Abs Auto 0.03 X10*3/uL (0.00-0.03); Imm Gran Pct Auto 0.4 % (0.0-0.4); Lymphocytes Absolute Auto 2.1 X10*3/uL (1.2-4.9); Lymphocytes Percent Auto 29.5 % (20-40); Mean Corpuscular HGB Conc 31.9 g/dl (31.0-35.0); Mean Corpuscular Hemoglobin 28.2 pg (27.0-33.0); Mean Corpuscular Volume 88.2 fL (80-98); Mean Platelet Volume 11.7 fL (9.4-12.3); Monocytes Absolute Auto 0.5 X10*3/uL (0.1-1.2); Monocytes Percent Auto 7.6 % (2-11); Neutrophils Absolute Auto 4.1 X10*3/uL (2.0-8.3); Neutrophils Percent Auto 59.1 % (45-73); Platelet Count 165 X10*3/uL (160-400); Red Blood Count 3.73 X10*6/uL (4.20-5.50); Red Cell Distribution Width 12.5 % (11.0-16.0); White Blood Count 6.9 X10*3/uL (4.8-10.8)
[2020-05-25 10:04] LABS: Prothrombin Time 12.1 SEC (10.8-13.0)
[2020-05-25] MEDS: HYDROmorphone HCl 1 MG/ML SYRINGE IVPUSH ×2 (10:14→14:17)
[2020-05-25] MEDS: ondansetron HCL 4 MG/2 ML VIAL IVPUSH (10:14)
[2020-05-25 10:26] LABS: Alanine Aminotransferase 8 U/L (0-31); Albumin Level 3.6 g/dL (3.5-5.0); Alkaline Phosphatase 112 U/L (39-117); Anion Gap 10 (12-20); Aspartate Amino Transferase 8 U/L (5-31); Bilirubin Direct < 0.2 mg/dL (0.0-0.5); Bilirubin Total 0.5 mg/dL (0.0-1.0); Blood Urea Nitrogen 11 mg/dL (9-16); Carbon Dioxide 27 mmol/L (22-29); Chloride 98 mmol/L (96-108); Estimated Glomerular Filt Rate 57; Glucose Random 571 mg/dL (60-115); Magnesium 1.8 mg/dL (1.6-2.6); Sodium 131 mmol/L (135-145); Total Protein 6.2 g/dL (6.5-8.0)
[2020-05-25 10:37] VITALS: BP 132/84; PULSE 82; RESP 14; O2SAT 97
[2020-05-25 10:41] LABS: B Type Natriuretic Peptide 26 pg/mL (<100)
[2020-05-25 10:57] LABS: Influenza A PCR NEGATIVE (Negative); Influenza B PCR NEGATIVE (Negative); Resp Syncy Virus RNA Qual PCR NEGATIVE (Negative); SARS COV2 PCR INHOUSE NEGATIVE (Negative)
[2020-05-25 12:12] LABS: Glucose, Whole Blood 334 mg/dL (60-115)
--- NOTE | 2020-05-25 12:14 | PC.NURSE ---
POC rechecked, result 334. PA made aware. patient still have about half a bag of normal saline infusing. will check again when fluids are complete.
[2020-05-25 13:27] VITALS: BP 132/78; PULSE 76; O2SAT 97
[2020-05-25 13:30] LABS: Acetone, serum QL Negative (Negative)
[2020-05-25 13:31] LABS: Glucose, Whole Blood 318 mg/dL (60-115)
[2020-05-25] MEDS: Insulin Regular, Human 100 UNIT/ML 3 ML VIAL 6 UNIT IVPUSH (14:17)
[2020-05-25 14:20] VITALS: BP 115/73; PULSE 79; RESP 14; O2SAT 98
[2020-05-25 14:26] LABS: Glucose, Whole Blood 295 mg/dL (60-115)
== END 2020-05-25 14:36 | disposition home or self-care (01) ==
PROVIDERS: Physician Assistant Medical; Emergency Provider Internal Medicine
DX: E11.65 Type 2 diabetes mellitus with hyperglycemia (principal); G43.909 Migraine, unspecified, not intractable, without status migrainosus; E87.1 Hypo-osmolality and hyponatremia; R60.0 Localized edema; Z20.822 Contact with and (suspected) exposure to COVID-19; C34.90 Malignant neoplasm of unspecified part of unspecified bronchus or lung; E27.3 Drug-induced adrenocortical insufficiency; F11.10 Opioid abuse, uncomplicated; J44.9 Chronic obstructive pulmonary disease, unspecified; F17.210 Nicotine dependence, cigarettes, uncomplicated; Z79.4 Long term (current) use of insulin; Z79.52 Long term (current) use of systemic steroids; Z92.21 Personal history of antineoplastic chemotherapy; Z92.3 Personal history of irradiation
CPT/HCPCS: 0241U; 36415; 71046; 80048; 80076; 82009; 82947; 83735; 83880; 85025; 85610; 93005; 93970; 96360; 96374; 96375; 96376; 99284; 99291; J1170; J2405

== ENCOUNTER → 2020-05-27 11:06 | Outpatient (BNVA) | payer OTHER, SELFPAY | PROVIDERS: Visit Provider Internal Medicine Endocrinology, Diabetes & Metabolism ==

== ENCOUNTER 2020-05-27 11:17 | Observation (INO) | payer OTHER, SELFPAY ==
--- NOTE | ~2020-05-27 | CT_ITS ---
EXAMINATION: CT ABDOMEN AND PELVIS WITH CONTRAST CLINICAL INFORMATION: Abdominal pain, distention, history of ulcerative colitis COMPARISON: 04/01/2020 TECHNIQUE: Multidetector volumetric images were obtained from the superior aspect of the liver through the pubic symphysis following administration 85 mL of Omnipaque 350 intravenous contrast. Sagittal and coronal reformatted images were obtained on the technologist's workstation. Oral contrast: No This CT examination was performed using dose optimization techniques as appropriate, variously including the following: *Automated exposure control *Adjustment of mA and/or kV according to patient size (this includes techniques or standardized protocols for targeted exams where dose is matched to indication/reason for exam; i.e. extremities or head) *Use of iterative reconstruction technique DLP: 573 mGy-cm FINDINGS: LUNG BASES: Trace bilateral pleural effusions, new from prior study. Mild bibasilar atelectasis. Normal heart size. No pericardial effusion. LIVER, GALLBLADDER, AND BILIARY TREE: The liver is normal in size, shape, and attenuation. No focal hepatic lesion or biliary ductal dilatation is present. The gallbladder is unremarkable with no evidence of radiopaque gallstones, gallbladder wall thickening, or obvious pericholecystic inflammatory changes. PANCREAS: The pancreas is diffusely atrophic, similar to prior. The pancreatic duct is not dilated. No pancreatic mass or peripancreatic inflammatory changes. SPLEEN: Normal size. ADRENAL GLANDS: No adrenal mass. KIDNEYS AND URETERS: The kidneys are normal in size, shape, and attenuation. No hydronephrosis, hydroureter, or calculi seen. No perinephric stranding. BLADDER: Unremarkable. GASTROINTESTINAL TRACT: Stomach and small bowel are nondilated. Normal appendix. Previously seen wall thickening of the left colon and sigmoid colon have resolved. There is a large volume of stool throughout the colon particularly in the rectosigmoid colon. Constipation is possible. ABDOMINAL WALL: No significant hernia is appreciated. LYMPH NODES: Normal. VASCULAR: Unremarkable. PELVIC VISCERA: The uterus and adnexa are unremarkable. There is reflux of contrast into the ovarian veins, left greater than right suggesting pelvic congestion syndrome. There are pelvic varices as well. OSSEOUS STRUCTURES: No acute osseous abnormality. CT/CT abdomen pelvis w con IMPRESSION: No findings to suggest bowel inflammation. Large volume of stool throughout the colon, particularly the rectosigmoid colon; constipation could give this appearance.
--- NOTE | ~2020-05-27 | CT_ITS ---
EXAMINATION: CT HEAD WITHOUT CONTRAST CLINICAL INFORMATION: Headache. Nausea. Vomiting. COMPARISON: Most recent CT head dated 04/01/2020. TECHNIQUE: Contiguous axial imaging was performed from the skull base to vertex without intravenous administration of contrast. This CT examination was performed using dose optimization techniques as appropriate, variously including the following: *Automated exposure control *Adjustment of mA and/or kV according to patient size (this includes techniques or standardized protocols for targeted exams where dose is matched to indication/reason for exam; i.e. extremities or head) *Use of iterative reconstruction technique DLP: 575 mGy-cm FINDINGS: There is no evidence of acute intracranial hemorrhage or territorial infarction. No abnormal mass effect or midline shift is seen. Byers to white matter differentiation is well preserved. No extra-axial fluid collections are identified. The ventricles are normal in size. There is no abnormal attenuation within the brain parenchyma. The osseous structures and soft tissues are normal. The mastoid air cells and visualized portions of the paranasal sinuses are well aerated. CT/CT head/brain wo con IMPRESSION: No acute intracranial hemorrhage or mass effect. No significant interval change.
[2020-05-27 11:24] VITALS: BP 145/92; PULSE 87; RESP 16; TEMP 37.1; O2SAT 98; BMI 27.3
[2020-05-27 12:10] LABS: MANUAL DIFF FLAG NO
[2020-05-27 12:12] LABS: Basophils Percent Auto 0.2 % (0-2); Hematocrit 34.2 % (37-47); Hemoglobin 11.3 g/dl (12.0-16.0); Imm Gran Abs Auto 0.07 X10*3/uL (0.00-0.03); Imm Gran Pct Auto 0.6 % (0.0-0.4); Lymphocytes Absolute Auto 1.8 X10*3/uL (1.2-4.9); Lymphocytes Percent Auto 14.6 % (20-40); Mean Corpuscular Hemoglobin 28.3 pg (27.0-33.0); Mean Corpuscular Volume 85.7 fL (80-98); Mean Platelet Volume 12.3 fL (9.4-12.3); Monocytes Absolute Auto 0.5 X10*3/uL (0.1-1.2); Monocytes Percent Auto 4.5 % (2-11); Neutrophils Absolute Auto 9.7 X10*3/uL (2.0-8.3); Neutrophils Percent Auto 80.1 % (45-73); Platelet Count 243 X10*3/uL (160-400); Red Blood Count 3.99 X10*6/uL (4.20-5.50); Red Cell Distribution Width 12.1 % (11.0-16.0); White Blood Count 12.1 X10*3/uL (4.8-10.8)
[2020-05-27 12:16] LABS: Venous Blood Gas Refer to POC result
[2020-05-27 12:17] LABS: VBG Base Excess 0.8 mmol/L; VBG HCO3 25 mmol/L (22-26); VBG pCO2 38 mmHg; VBG pH 7.41 (7.32-7.43); VBG pO2 76 mmHg
--- NOTE | 2020-05-27 12:25 | ED.GENADULT ---
HPI - General Adult General Chief complaint: General Medical Stated complaint: hyperglycemia Time Seen by Provider: 05/27/20 11:25 Source: patient and EMS Mode of arrival: EMS Limitations: no limitations History of Present Illness HPI narrative: 55 y/o female with history of metastatic lung cancer s/p radiation on current chemotherapy (last received yesterday), DM (dx Dec 2019) on insulin, fibromyalgia with chronic pain, hx colitis, adrenal insufficiency who presents to the ED via EMS from [employer] office with hyperglycemia >600. Per Endo note, only 9 glucose readings were in meter from 05/14-05/27 and average glucose was 382. Patient reports she recently had chemotherapy and her glucose levels are more difficult to control right after. She states the entire week last week they were reading >600. She takes insulin once in the morning and once at night. She does not seem to understand the difference between basal and short acting insulin. She reports feeling unwell and having nausea, headache and palpitations, which are common symptoms for her when her glucose is high. No chest pain, SOB, or fevers. Of note patient was seen here in the ED yesterday for hyperglycemia and migraine headache. She was seem im [facility] ER the day prior for the same. MD complaint: hyperglycemia Onset (ago): week(s) (1) Location: head, chest and abdomen Radiation: non-radiation Severity: similar to prior episodes Quality: aching Pain Consistency: constant Relieving factors: none Exacerbating factors: movement Associated symptoms: headaches, loss of appetite, malaise, nausea/vomiting and weakness Treatments prior to arrival: none Related Data Home Medications Medication Instructions Recorded Confirmed alprazolam 1 mg PO TID PRN 12/17/19 05/27/20 clonidine HCl 0.1 mg PO BEDTIME PRN 12/17/19 05/27/20 hydroxyzine pamoate 50 mg PO Q8H PRN 12/17/19 05/27/20 levetiracetam 500 mg PO BID 12/17/19 05/27/20 mesalamine 1,600 mg PO TID 12/17/19 05/27/20 omeprazole 20 mg PO BID 12/17/19 05/27/20 sucralfate 1 g PO BEDTIME 12/17/19 05/27/20 nivolumab 240 mg/24 mL intravenous 240 mg IV Q2W 03/08/20 05/27/20 solution venlafaxine 150 mg 150 mg PO DAILY 03/08/20 05/27/20 capsule,extended release 24 hr zolpidem 10 mg tablet 10 mg PO BEDTIME PRN 03/08/20 05/27/20 bupropion HCl 150 mg PO BID 05/27/20 gabapentin 300 mg PO TID PRN 05/27/20 05/27/20 insulin glargine U-300 conc 20 unit SUBCUT BEDTIME 05/27/20 [Toujeo SoloStar U-300 Insulin] prednisone 15 mg PO DAILY 05/27/20 05/27/20 venlafaxine [Effexor XR] 75 mg PO DAILY 05/27/20 05/27/20 Previous Rx's Medication Instructions Recorded blood sugar diagnostic #150 ea 12/18/19 lancets 33 gauge #150 ea 12/18/19 pen needle, diabetic 32 gauge x #400 ea 12/18/19 blood sugar diagnostic #150 ea 12/28/19 blood-glucose meter #1 ea 12/28/19 lancets 28 gauge #150 ea 12/28/19 blood sugar diagnostic #150 ea 01/01/20 ketorolac [Acular] 1 drp OPHTHALMIC (EYE) QID #3 ml 02/01/20 insulin aspart U-100 100 unit/mL 5 unit SUBCUT TID 30 Days #15 ml 03/24/20 (3 mL) subcutaneous pen insulin degludec 200 unit/mL (3 20 unit SUBCUT DAILY 30 Days #3 ml 03/24/20 mL) subcutaneous pen ondansetron HCl [Zofran] 8 mg PO Q8H PRN #50 tab 05/12/20 Allergies Allergy/AdvReac Type Severity Reaction Status Date / Time acetaminophen [Tylenol] AdvReac Unknown Abdominal Verified 03/08/20 13:08 Pain ibuprofen AdvReac Unknown Abdominal Verified 03/08/20 13:08 Pain senna AdvReac Unknown Headache Verified 03/08/20 13:08 Review of Systems Review of Systems: Constitutional: No Fever, No Chills ENT/Mouth: + sore throat, No Rhinorrhea, + Swallowing Difficulty (chronic) Eyes: No Eye Pain, No Swelling, No Redness Cardiovascular: No Chest Pain, No SOB, No Orthopnea, + Edema Respiratory: No Cough, No Sputum, No Wheezing, No dyspnea Gastrointestinal: + Nausea, No Vomiting, No Diarrhea, + abdominal Pain, No Hematochezia, No Melena Genitourinary: No Dysuria, No Urinary Frequency, No Hematuria Musculoskeletal: + joint pain, + Myalgias Skin: No Skin Lesions, No rash Neuro: + Weakness, No Numbness, No Dizziness, + Headache Psych: No Anxiety/Panic, No Depression Heme/Lymph: No Bruising, No Lymphadenopathy Endocrine: + Polyuria, + Polydipsia PMF Past Medical History Attestation statement: The following information was validated with the patient. Medical History Adrenal insufficiency Adrenal insufficiency due to cancer therapy Aftercare following left shoulder joint replacement surgery Arthritis Asthma Colitis COPD (chronic obstructive pulmonary disease) Depression Fibromyalgia History of lung cancer Hypothyroidism Multinodular goiter Newly diagnosed diabetes Non-small cell carcinoma of left lung, stage 4 Opioid abuse Opioid use disorder Pancreatitis Radiation-induced esophagitis Subclinical hyperthyroidism Surgical History History of History of esophageal dilatation Hx of blepharoplasty Hx of shoulder surgery Status post cholecystectomy Family History Family History Father Pancreatic cancer Mother Diabetes Brother Diabetes Sister Diabetes Social History Social History Household Members: Children Housing: Apartment Alcohol intake: never Smoking Status: Current some day smoker Tobacco Type: Cigarette Cigarettes Per Day: 1 Years Smoked: 45 Advance Directives: No Advance Directives Information Provided: No service: No Current occupational status: unemployed and disabled Physical Exam Vital Signs: Vital Signs: Last Vital Signs Temp 98.8 F 05/27/20 11:24 Pulse 87 05/27/20 15:16 Resp 18 05/27/20 15:16 BP 146/89 H 05/27/20 15:16 Pulse Ox 97 05/27/20 15:16 Body Mass Index 27.3 Appearance: Alert. Oriented X3. Appears uncomfortable. Eyes: Pupils equal, round and reactive to light. ENT: Pharynx normal. Neck: Normal inspection. Neck supple. CVS: Normal heart rate and rhythm. Pulses normal. Respiratory: No respiratory distress. Breath sounds normal. Abdomen: Soft and nontender. +BS x4 Skin: Skin warm and dry. Normal skin color. Normal skin turgor. No rashes. Extremities: Trace lower extremity edema. Neuro: Oriented X 3. No motor deficit. No sensory deficit. Course Course Course Narrative: 55 y/o female presenting from [employer] office with hyperglycemia after chemotherapy. This is her 3rd ER visit for the same in the last 3 days. She is not checking her blood sugars regularly at home and does not seem to know her appropriate insulin regimen. Glucose >600 here. Will check labs and r/o DKA. No signs of active infection. IVF and 10 units IV insulin ordered, she seems to be more and more resistant to insulin. Reevaluation(s) Reevaluation #1: Glucose 679 without any anion gap. pH normal which is not consistent with DKA. Glucose improved to 350s after IV insulin and IVF. IV toradol ordered for headache. Call out to her [employer]illing [employer] office for recommendations as been made. Reevaluation #2: Spoke with Dr. Jarod Orellana, patient's Drilling Superintendent who expressed ongoing concerns about patients' compliance, understanding and actual insulin requirements. She is recommending using both scheduled AC insulin as well as SS and long acting in a closely monitored setting so that her needs can be assessed. Spoke with Nabila Tidwell PA-C for admission who accepts. Medical Decision Making Lab Data Result diagrams: 05/27/20 12:02 05/27/20 12:02 Labs: Lab Results 05/27/20 05/27/20 05/27/20 Range/Units 11:25 12:02 12:02 WBC 12.1 H (4.8-10.8) X10*3/uL RBC 3.99 L (4.20-5.50) X10*6/uL Hgb 11.3 L (12.0-16.0) g/dl Hct 34.2 L (37-47) % MCV 85.7 (80-98) fL MCH 28.3 (27.0-33.0) pg MCHC 33.0 (31.0-35.0) g/dl RDW 12.1 (11.0-16.0) % Plt Count 243 (160-400) X10*3/uL MPV 12.3 (9.4-12.3) fL Immature Gran % (Auto) 0.6 H (0.0-0.4) % Neut % (Auto) 80.1 H (45-73) % Lymph % (Auto) 14.6 L (20-40) % [place] % (Auto) 4.5 (2-11) % Eos % (Auto) 0.0 (0-4) % Baso % (Auto) 0.2 (0-2) % Lymph # (Auto) 1.8 (1.2-4.9) X10*3/uL [place] # (Auto) 0.5 (0.1-1.2) X10*3/uL Eos # (Auto) 0.0 (0.0-0.4) X10*3/uL Baso # (Auto) 0.0 (0.0-0.2) X10*3/uL Abs Immat Gran (auto) 0.07 H (0.00-0.03) X10*3/uL Absolute Neuts (auto) 9.7 H (2.0-8.3) X10*3/uL Absolute Nucleated RBC 0.000 (0.0-0.012) X10*3/uL Nucleated RBC % (auto) 0.0 (0.0-0.2) /100WBC Hold Blue Top SEE NOTE VBG pH (7.32-7.43) VBG pCO2 mmHg VBG pO2 mmHg VBG HCO3 (22-26) mmol/L VBG O2 Saturation % VBG Base Excess mmol/L Sodium (135-145) mmol/L Potassium (3.3-5.1) mmol/L Chloride (96-108) mmol/L Carbon Dioxide (22-29) mmol/L Anion Gap (12-20) BUN (9-16) mg/dL Creatinine (0.5-1.4) mg/dL Estim Creat Clear Calc Estimated GFR POC Glucose (60-115) mg/dL Random Glucose (60-115) mg/dL Estimat Average Glucose mg/dL Hemoglobin A1c % % Calcium (8.4-10.2) mg/dL Magnesium (1.6-2.6) mg/dL Total Bilirubin (0.0-1.0) mg/dL Direct Bilirubin (0.0-0.5) mg/dL AST (5-31) U/L ALT (0-31) U/L Alkaline Phosphatase (39-117) U/L Total Protein (6.5-8.0) g/dL Albumin (3.5-5.0) g/dL Ethyl Alcohol < 10 mg/dL Acetone, Qual (Negative) 05/27/20 05/27/20 05/27/20 Range/Units 12:02 12:02 12:02 WBC (4.8-10.8) X10*3/uL RBC (4.20-5.50) X10*6/uL Hgb (12.0-16.0) g/dl Hct (37-47) % MCV (80-98) fL MCH (27.0-33.0) pg MCHC (31.0-35.0) g/dl RDW (11.0-16.0) % Plt Count (160-400) X10*3/uL MPV (9.4-12.3) fL Immature Gran % (Auto) (0.0-0.4) % Neut % (Auto) (45-73) % Lymph % (Auto) (20-40) % [place] % (Auto) (2-11) % Eos % (Auto) (0-4) % Baso % (Auto) (0-2) % Lymph # (Auto) (1.2-4.9) X10*3/uL [place] # (Auto) (0.1-1.2) X10*3/uL Eos # (Auto) (0.0-0.4) X10*3/uL Baso # (Auto) (0.0-0.2) X10*3/uL Abs Immat Gran (auto) (0.00-0.03) X10*3/uL Absolute Neuts (auto) (2.0-8.3) X10*3/uL Absolute Nucleated RBC (0.0-0.012) X10*3/uL Nucleated RBC % (auto) (0.0-0.2) /100WBC Hold Blue Top VBG pH (7.32-7.43) VBG pCO2 mmHg VBG pO2 mmHg VBG HCO3 (22-26) mmol/L VBG O2 Saturation % VBG Base Excess mmol/L Sodium 132 L (135-145) mmol/L Potassium 4.4 (3.3-5.1) mmol/L Chloride 94 L (96-108) mmol/L Carbon Dioxide 27 (22-29) mmol/L Anion Gap 15 (12-20) BUN 9 (9-16) mg/dL Creatinine 1.24 (0.5-1.4) mg/dL Estim Creat Clear Calc 48.0 Estimated GFR 45 POC Glucose (60-115) mg/dL Random Glucose 679 H* (60-115) mg/dL Estimat Average Glucose 217 mg/dL Hemoglobin A1c % 9.2 % Calcium 9.9 D (8.4-10.2) mg/dL Magnesium 2.1 (1.6-2.6) mg/dL Total Bilirubin 0.7 (0.0-1.0) mg/dL Direct Bilirubin 0.2 (0.0-0.5) mg/dL AST 9 (5-31) U/L ALT 10 (0-31) U/L Alkaline Phosphatase 131 H (39-117) U/L Total Protein 7.6 (6.5-8.0) g/dL Albumin 4.4 D (3.5-5.0) g/dL Ethyl Alcohol mg/dL Acetone, Qual Negative (Negative) 05/27/20 05/27/20 Range/Units 12:11 13:06 WBC (4.8-10.8) X10*3/uL RBC (4.20-5.50) X10*6/uL Hgb (12.0-16.0) g/dl Hct (37-47) % MCV (80-98) fL MCH (27.0-33.0) pg MCHC (31.0-35.0) g/dl RDW (11.0-16.0) % Plt Count (160-400) X10*3/uL MPV (9.4-12.3) fL Immature Gran % (Auto) (0.0-0.4) % Neut % (Auto) (45-73) % Lymph % (Auto) (20-40) % [place] % (Auto) (2-11) % Eos % (Auto) (0-4) % Baso % (Auto) (0-2) % Lymph # (Auto) (1.2-4.9) X10*3/uL [place] # (Auto) (0.1-1.2) X10*3/uL Eos # (Auto) (0.0-0.4) X10*3/uL Baso # (Auto) (0.0-0.2) X10*3/uL Abs Immat Gran (auto) (0.00-0.03) X10*3/uL Absolute Neuts (auto) (2.0-8.3) X10*3/uL Absolute Nucleated RBC (0.0-0.012) X10*3/uL Nucleated RBC % (auto) (0.0-0.2) /100WBC Hold Blue Top VBG pH 7.41 (7.32-7.43) VBG pCO2 38 mmHg VBG pO2 76 mmHg VBG HCO3 25 (22-26) mmol/L VBG O2 Saturation 92.0 % VBG Base Excess 0.8 mmol/L Sodium (135-145) mmol/L Potassium (3.3-5.1) mmol/L Chloride (96-108) mmol/L Carbon Dioxide (22-29) mmol/L Anion Gap (12-20) BUN (9-16) mg/dL Creatinine (0.5-1.4) mg/dL Estim Creat Clear Calc Estimated GFR POC Glucose 358 H* (60-115) mg/dL Random Glucose (60-115) mg/dL Estimat Average Glucose mg/dL Hemoglobin A1c % % Calcium (8.4-10.2) mg/dL Magnesium (1.6-2.6) mg/dL Total Bilirubin (0.0-1.0) mg/dL Direct Bilirubin (0.0-0.5) mg/dL AST (5-31) U/L ALT (0-31) U/L Alkaline Phosphatase (39-117) U/L Total Protein (6.5-8.0) g/dL Albumin (3.5-5.0) g/dL Ethyl Alcohol mg/dL Acetone, Qual (Negative) ECG Data Attestation: I personally reviewed and interpreted this ECG as follows: Interpretation: normal sinus rhythm, HR 87 bpm, RI interval normal, normal QTc, J point elevation in V2 consistent with early repolarization Discharge Plan Discharge Clinical Impression: Hyperglycemia Patient Disposition: Admitted As Inpatient
[2020-05-27] MEDS: 0.9 % Sodium Chloride 1,000 ML 999 ML IVCONT (12:34)
[2020-05-27] MEDS: Insulin Regular, Human 100 UNIT/ML 3 ML VIAL 10 UNIT IVPUSH (12:34)
[2020-05-27 12:59] LABS: Alanine Aminotransferase 10 U/L (0-31); Albumin Level 4.4 g/dL (3.5-5.0); Alkaline Phosphatase 131 U/L (39-117); Anion Gap 15 (12-20); Aspartate Amino Transferase 9 U/L (5-31); Bilirubin Direct 0.2 mg/dL (0.0-0.5); Bilirubin Total 0.7 mg/dL (0.0-1.0); Blood Urea Nitrogen 9 mg/dL (9-16); Calcium 9.9 mg/dL (8.4-10.2); Carbon Dioxide 27 mmol/L (22-29); Chloride 94 mmol/L (96-108); Estimated Glomerular Filt Rate 45; Glucose Random 679 mg/dL (60-115); Magnesium 2.1 mg/dL (1.6-2.6); Potassium 4.4 mmol/L (3.3-5.1); Sodium 132 mmol/L (135-145); Total Protein 7.6 g/dL (6.5-8.0)
[2020-05-27 13:01] LABS: Ethanol < 10 mg/dL
[2020-05-27 13:08] LABS: Acetone, serum QL Negative (Negative)
--- NOTE | 2020-05-27 13:08 | PC.NURSE ---
POC trending down to 358 after IV insulin and IVF. Pt given sugar free elena august per request. Julisa LACKEY aware of POC.
[2020-05-27 13:10] LABS: Glucose, Whole Blood 358 mg/dL (60-115)
[2020-05-27] MEDS: Ketorolac Tromethamine 30 MG/ML VIAL IVPUSH (13:46)
[2020-05-27 14:00] VITALS: BP 140/88; PULSE 80
[2020-05-27 14:45] LABS: Estimated Average Glucose 217 mg/dL; Hemoglobin A1c % 9.2 %
--- NOTE | 2020-05-27 15:05 | PM.EVENT ---
Event Note Date of Service: 05/27/20 Event Note: Patient seen and examined. Case discussed with DARYA Anne. Agree with her documentation. In [place], a 55 yo F with a history of metastatic lung Ca being admitted for dehydration and hyperglycemia, mild MARY (SCr baseline around 0.8); now 1.24; Has had multiple ED visits and sent in from endocrinology. Admit for IVF and titration of insulin. Remainder per H&P
[2020-05-27 15:16] VITALS: BP 146/89; PULSE 87; RESP 18; O2SAT 97
--- NOTE | 2020-05-27 15:18 | PC.NURSE ---
Pt remains calm and cooperative resting in bed. Plan for admission to [facility].
--- NOTE | 2020-05-27 15:20 | P.HPHOSP_ITS ---
History of Present Illness Date of Service: 05/27/20 Chief Complaint: Hyperglycemia This is a 55-year-old female with a history of metastatic lung cancer who was sent from the [facility] office due to hyperglycemia. Patient reports elevated blood sugars in the 500s or above for the past 2 weeks. It is unclear if she has been taking her insulin properly at home, although she reports compliance. Her lab work was significant for leukocytosis of 12.1, creatinine 1.24, random glucose of 679. Hemoglobin A1c was checked and was 9.2 . She received Fioricet for headache, Toradol for generalized pain, IV fluid and 10 units of regular insulin. Her repeat point of care sugar was 358. There is no evidence of DKA. Given that the patient was seen in the emergency department yesterday here at [facility] as well as at [facility] the day before for hyperglycemia the decision was made to admit her for further management of uncontrolled diabetes. Review of Systems Review of Systems: Patient reports throat pain, generalized body pain, lower body swelling, fatigue. No chest pain, shortness of breath Yes all other systems are reviewed and are negative [facility] Medical History Adrenal insufficiency Adrenal insufficiency due to cancer therapy Aftercare following left shoulder joint replacement surgery Arthritis Asthma Colitis COPD (chronic obstructive pulmonary disease) Depression Fibromyalgia History of lung cancer Hypothyroidism Multinodular goiter Newly diagnosed diabetes Non-small cell carcinoma of left lung, stage 4 Opioid abuse Opioid use disorder Pancreatitis Radiation-induced esophagitis Subclinical hyperthyroidism Family History Father Pancreatic cancer Mother Diabetes Brother Diabetes Sister Diabetes Surgical History History of History of esophageal dilatation Hx of blepharoplasty Hx of shoulder surgery Status post cholecystectomy Social History Household Members: Children Housing: Apartment Alcohol intake: never Smoking Status: Current some day smoker Tobacco Type: Cigarette Cigarettes Per Day: 1 Years Smoked: 45 Advance Directives: No Advance Directives Information Provided: No service: No Current occupational status: unemployed and disabled Meds Allergies Allergy/AdvReac Type Severity Reaction Status Date / Time acetaminophen [Tylenol] AdvReac Unknown Abdominal Verified 03/08/20 13:08 Pain ibuprofen AdvReac Unknown Abdominal Verified 03/08/20 13:08 Pain senna AdvReac Unknown Headache Verified 03/08/20 13:08 Active Medications: Current Medications Generic Name Dose Route Start Last Admin Trade Name Freq PRN Reason Stop Dose Admin Pharmacy Consult 1 each 05/27/20 15:02 Consult Rx Perform Med Rec MISCELLANE ONCE PRN Consult order Home Medications Medication Instructions Recorded Confirmed Last Taken Type alprazolam 1 mg PO TID PRN 12/17/19 05/27/20 Unknown History clonidine HCl 0.1 - 0.2 mg PO BEDTIME PRN 12/17/19 05/27/20 Unknown History hydroxyzine pamoate 50 mg PO Q8H PRN 12/17/19 05/27/20 Unknown History levetiracetam 500 mg PO BID 12/17/19 05/27/20 Unknown History mesalamine 1,600 mg PO TID 12/17/19 05/27/20 Unknown History nivolumab 240 mg/24 mL intravenous 240 mg IV Q2W 03/08/20 05/27/20 03/31/20 History solution venlafaxine 150 mg 150 mg PO DAILY 03/08/20 05/27/20 Unknown History capsule,extended release 24 hr zolpidem 10 mg tablet 10 mg PO BEDTIME PRN 03/08/20 05/27/20 Unknown History bupropion HCl 150 mg PO BID 05/27/20 05/27/20 Unknown History gabapentin 300 mg PO TID PRN 05/27/20 05/27/20 Unknown History insulin glargine U-300 conc 20 unit SUBCUT BEDTIME 05/27/20 Unknown History [Toukaris SoloStar U-300 Insulin] prednisone 15 mg PO DAILY 05/27/20 05/27/20 Unknown History venlafaxine [Effexor XR] 75 mg PO DAILY 05/27/20 05/27/20 Unknown History Physical Exam Vital Signs and Narrative: Vital Signs: Last Vital Signs Temp 98.8 F 05/27/20 11:24 Pulse 87 05/27/20 15:16 Resp 18 05/27/20 15:16 BP 146/89 H 05/27/20 15:16 Pulse Ox 97 05/27/20 15:16 Body Mass Index 27.3 Const: Nutritional Appearance: well nourished Orientation/consciousness: patient oriented x3 HENMT: Head: Yes normocephalic and Yes atraumatic Eyes: Sclerae: sclerae normal Chest: Chest palpation & inspection: normal inspection of the chest Resp: Effort & Inspection: normal respiratory effort and no respiratory distress Auscultation: clear to auscultation bilaterally Cardio: Rate: regular rate Rhythm: regular rhythm GI: Palpation (GI): Soft to palpation and nontender Skin: General skin exam: no rashes or lesions noted Neuro: General: patient oriented x3 Cranial nerves: Yes CN's II-XII intact bilaterally and Yes Bilaterally intact EOM present Extrem: General: Yes normal to inspection Results Labs CBC and Chem 7: 05/27/20 12:02 05/27/20 12:02 Labs: Laboratory Results - last 24 hr 05/27/20 05/27/20 05/27/20 11:25 12:02 12:02 MCV 85.7 MCH 28.3 MCHC 33.0 RDW 12.1 Plt Count 243 MPV 12.3 Immature Gran % (Auto) 0.6 H Neut % (Auto) 80.1 H Lymph % (Auto) 14.6 L [place] % (Auto) 4.5 Eos % (Auto) 0.0 Baso % (Auto) 0.2 Lymph # (Auto) 1.8 [place] # (Auto) 0.5 Eos # (Auto) 0.0 Baso # (Auto) 0.0 Abs Immat Gran (auto) 0.07 H Absolute Neuts (auto) 9.7 H Absolute Nucleated RBC 0.000 Nucleated RBC % (auto) 0.0 Hold Blue Top SEE NOTE VBG pH VBG pCO2 VBG pO2 VBG HCO3 VBG O2 Saturation VBG Base Excess Anion Gap Estim Creat Clear Calc Estimated GFR POC Glucose Random Glucose Estimat Average Glucose Hemoglobin A1c % Calcium Magnesium Total Bilirubin Direct Bilirubin AST ALT Alkaline Phosphatase Total Protein Albumin Ethyl Alcohol < 10 Acetone, Qual 05/27/20 05/27/20 05/27/20 12:02 12:02 12:02 MCV MCH MCHC RDW Plt Count MPV Immature Gran % (Auto) Neut % (Auto) Lymph % (Auto) [place] % (Auto) Eos % (Auto) Baso % (Auto) Lymph # (Auto) [place] # (Auto) Eos # (Auto) Baso # (Auto) Abs Immat Gran (auto) Absolute Neuts (auto) Absolute Nucleated RBC Nucleated RBC % (auto) Hold Blue Top VBG pH VBG pCO2 VBG pO2 VBG HCO3 VBG O2 Saturation VBG Base Excess Anion Gap 15 Estim Creat Clear Calc 48.0 Estimated GFR 45 POC Glucose Random Glucose 679 H* Estimat Average Glucose 217 Hemoglobin A1c % 9.2 Calcium 9.9 D Magnesium 2.1 Total Bilirubin 0.7 Direct Bilirubin 0.2 AST 9 ALT 10 Alkaline Phosphatase 131 H Total Protein 7.6 Albumin 4.4 D Ethyl Alcohol Acetone, Qual Negative 05/27/20 05/27/20 12:11 13:06 MCV MCH MCHC RDW Plt Count MPV Immature Gran % (Auto) Neut % (Auto) Lymph % (Auto) [place] % (Auto) Eos % (Auto) Baso % (Auto) Lymph # (Auto) [place] # (Auto) Eos # (Auto) Baso # (Auto) Abs Immat Gran (auto) Absolute Neuts (auto) Absolute Nucleated RBC Nucleated RBC % (auto) Hold Blue Top VBG pH 7.41 VBG pCO2 38 VBG pO2 76 VBG HCO3 25 VBG O2 Saturation 92.0 VBG Base Excess 0.8 Anion Gap Estim Creat Clear Calc Estimated GFR POC Glucose 358 H* Random Glucose Estimat Average Glucose Hemoglobin A1c % Calcium Magnesium Total Bilirubin Direct Bilirubin AST ALT Alkaline Phosphatase Total Protein Albumin Ethyl Alcohol Acetone, Qual Assessment and Plan (1) Hyperglycemia: Status: Acute (2) MARY (acute kidney injury): Status: Acute This is a 54 year old female with a history of lung cancer receiving chemotherapy, radiation induced esophagitis, anxiety, fibromyalgia, adrenal insufficiency, among others send to the ED from endocrinology office with hyperglycemia DM with hyperglycemia unclear compliance with home meds. HbA1c 9.2, same in April. No evidence of DKA -SSI, POCs, ADA diet, follow insulin needs -home diabetic medications still being investigated by pharmacy, pending med review MARY SCr 1.24 today, baseline 0.8 likely r/t dehydration -IVF -avoid nephrotoxins -follow BMP Leukocytosis UA pending, no urinary symptoms -follow CBC h/o of opioid use disorder avoid narcotics when possible. listed allergies to motrin and tylenol will use tramadol for pain control ?Adrenal insufficiency previously on chronic prednisone, reports her doctor told her to stop it. follow BP closely Mood Continue Effexor, bupropion, Ativan, hydroxyzine, clonidine Seizure disorder Continue Keppra Seizure precautions dvt ppx - lovenox code status - full code this case was discussed with Dr. polo
[2020-05-27 15:46] LABS: COVID-19 Test Negative (Negative); IDNOW Serial# 9DD0AD1C
[2020-05-27 16:00] VITALS: BP 139/86; PULSE 73; RESP 16; TEMP 36.6; O2SAT 97
[2020-05-27 17:30] LABS: Glucose, Whole Blood 314 mg/dL (60-115)
[2020-05-27] MEDS: 0.9 % Sodium Chloride 1,000 ML 100 ML IVCONT (17:47)
[2020-05-27 18:13] LABS: Glucose, Whole Blood 367 mg/dL (60-115)
[2020-05-27] MEDS: Enoxaparin Sodium 40 MG/0.4 ML SYRINGE SUBCUT (18:31)
[2020-05-27] MEDS: Insulin Lispro 100 UNIT/ML 3 ML VIAL SUBCUT ×2 (18:31→21:29)
--- NOTE | 2020-05-27 18:34 | PC.NURSE ---
Patient arrived to unit from ED via wheelchair. Able to ambulate with stand-by assist. Blood sugar 367, 10 units of insulin given. 100 mL/hour NS hung. Patient alert and oriented x 4. Call castaneda within reach. Instructed on clean catch for urinalysis.
[2020-05-27 19:11] VITALS: BP 129/51; PULSE 89; RESP 18; TEMP 36.1; O2SAT 98
[2020-05-27 20:22] LABS: Glucose, Whole Blood 366 mg/dL (60-115)
[2020-05-27] MEDS: levETIRAcetam 500 MG TABLET PO (21:25)
[2020-05-27] MEDS: HYDROmorphone HCl 0.5 MG/0.5 ML SYRINGE IVPUSH (21:27)
[2020-05-27] MEDS: Insulin Glargine,Hum.rec.anlog 100 UNIT/ML 10 ML VIAL 16 UNIT SUBCUT (21:28)
[2020-05-27 23:21] VITALS: BP 140/82; PULSE 79; RESP 20; TEMP 36.4; O2SAT 98
[2020-05-28] VITALS (7 sets, daily range): BP systolic 135–187; BP diastolic 82–108; PULSE 67–77; RESP 14–19; TEMP 36.4–36.5; O2SAT 95–97
[2020-05-28] MEDS: ALPRAZolam 0.5 MG TABLET 1 MG PO ×2 (03:13→12:00)
[2020-05-28] MEDS: HYDROmorphone HCl 0.5 MG/0.5 ML SYRINGE IVPUSH ×2 (03:56→20:31)
[2020-05-28] MEDS: 0.9 % Sodium Chloride 1,000 ML 100 ML IVCONT ×2 (03:59→14:02)
[2020-05-28] MEDS: hydrOXYzine HCL 50 MG TABLET PO (04:09)
[2020-05-28] MEDS: cloNIDine HCL 0.1 MG TABLET PO (04:10)
[2020-05-28 05:31] LABS: Amphetamine Screen Urine Not Detected (Not Detect); Barbiturates, Urine Not Detected (Not Detect); Benzodiazepines Screen Urine POSITIVE (Not Detect); Cannabinoid Screen Urine Not Detected (Not Detect); Cocaine Screen Urine Not Detected (Not Detect); Opiate Screen Urine POSITIVE (Not Detect); Phencyclidine Screen Urine Not Detected (Not Detect)
[2020-05-28 06:22] LABS: MANUAL DIFF FLAG NO
[2020-05-28 06:28] LABS: Basophils Absolute Auto 0.1 X10*3/uL (0.0-0.2); Basophils Percent Auto 0.6 % (0-2); Eosinophils Absolute Auto 0.2 X10*3/uL (0.0-0.4); Hematocrit 28.8 % (37-47); Hemoglobin 9.5 g/dl (12.0-16.0); Imm Gran Abs Auto 0.03 X10*3/uL (0.00-0.03); Imm Gran Pct Auto 0.4 % (0.0-0.4); Lymphocytes Absolute Auto 2.9 X10*3/uL (1.2-4.9); Lymphocytes Percent Auto 36.4 % (20-40); Mean Corpuscular Hemoglobin 28.2 pg (27.0-33.0); Mean Corpuscular Volume 85.5 fL (80-98); Mean Platelet Volume 12.1 fL (9.4-12.3); Monocytes Absolute Auto 0.5 X10*3/uL (0.1-1.2); Neutrophils Absolute Auto 4.3 X10*3/uL (2.0-8.3); Neutrophils Percent Auto 54.6 % (45-73); Platelet Count 188 X10*3/uL (160-400); Red Blood Count 3.37 X10*6/uL (4.20-5.50); Red Cell Distribution Width 12.4 % (11.0-16.0); White Blood Count 7.9 X10*3/uL (4.8-10.8)
[2020-05-28 06:53] LABS: Anion Gap 11 (12-20); Blood Urea Nitrogen 9 mg/dL (9-16); Calcium 8.2 mg/dL (8.4-10.2); Carbon Dioxide 28 mmol/L (22-29); Chloride 104 mmol/L (96-108); Creatinine Clr Calc Pharmacy 82.8; Estimated Glomerular Filt Rate > 60; Glucose Random 181 mg/dL (60-115); Potassium 3.7 mmol/L (3.3-5.1); Sodium 139 mmol/L (135-145)
[2020-05-28 07:24] LABS: Glucose, Whole Blood 162 mg/dL (60-115)
[2020-05-28] MEDS: Venlafaxine HCl ER 150 MG CAP.ER.24H PO (07:54)
[2020-05-28] MEDS: buPROPion HCl XL 300 MG TAB.ER.24H PO (07:54)
[2020-05-28] MEDS: Insulin Lispro 100 UNIT/ML 3 ML VIAL SUBCUT ×4 (07:54→22:38)
[2020-05-28] MEDS: levETIRAcetam 500 MG TABLET PO ×2 (07:55→22:42)
[2020-05-28 11:45] LABS: Glucose, Whole Blood 235 mg/dL (60-115)
--- NOTE | 2020-05-28 13:24 | MHC.CM.PN ---
"PATIENT LIVES WITH HER SIGNIFICANT OTHER, NEPHEW, AND A FRIEND. PCP IS EDMAR HANSEN AND UPDATE MADE IN [employer] | [employer]. PATIENT RECEIVES CHEMOTHERAPY HERE AT [facility]. SHE HAS BEEN DOING SO FOR THE PAST 4 YEARS. HCP IS ON FILE AND VERIFIED; HOWEVER, PATIENT REPORTS THAT SHE RECENTLY COMPLETED A NEW DOCUMENT THAT NAMES HER DAUGHTER HCP AGENT. COPY OF NEW HCP REQUESTED GUERRIER 05/28 IN CHART. CASE MANAGEMENT FOLLOWING FOR ANY DC NEEDS."
--- NOTE | 2020-05-28 13:27 | P.PNIM_ITS ---
Subjective Subjective Date of Service: 05/28/20 Review of Systems patient seen and examined at bedside Patient reports abdominal pain Physical Exam Vital Signs: Vital Signs: Last Vital Signs Temp 97.6 F 05/28/20 07:10 Pulse 67 05/28/20 08:03 Resp 19 05/28/20 07:10 BP 135/82 05/28/20 08:03 Pulse Ox 96 05/28/20 07:10 Body Mass Index 27.3 Const: Nutritional Appearance: well nourished Orientation/consciousness: patient oriented x3 HENMT: Head: Yes normocephalic and Yes atraumatic Eyes: Sclerae: sclerae normal Chest: Chest palpation & inspection: normal inspection of the chest Resp: Effort & Inspection: normal respiratory effort and no respiratory distress Auscultation: clear to auscultation bilaterally Cardio: Rate: regular rate Rhythm: regular rhythm GI: Palpation (GI): Soft to palpation and Tenderness to palpation present (GI) in the LLQ Skin: General skin exam: no rashes or lesions noted Neuro: General: patient oriented x3 Cranial nerves: Yes CN's II-XII intact bilaterally and Yes Bilaterally intact EOM present Extrem: General: Yes normal to inspection Objective Data Current Medications Generic Name Dose Route Start Last Admin Trade Name Freq PRN Reason Stop Dose Admin Acetaminophen 650 mg 05/27/20 17:29 Acetaminophen 325 Mg Tablet PO Q6H PRN Pain, Mild (Pain Scale 1-3) Alprazolam 1 mg 05/27/20 17:29 05/28/20 12:00 Alprazolam 0.5 Mg Tablet PO 1 mg TID PRN Administration Anxiety Bupropion HCl 300 mg 05/28/20 09:00 05/28/20 07:54 Bupropion Hcl Xl 300 Mg Tab.Er.24h PO 300 mg DAILY SHABANA Administration Clonidine HCl 0.1 mg 05/27/20 17:29 05/28/20 04:10 Clonidine Hcl 0.1 Mg Tablet PO 0.1 mg BEDTIME MRX1 PRN Administration Anxiety Protocol Docusate Sodium 100 mg 05/27/20 17:29 Docusate Sodium 100 Mg Capsule PO DAILY PRN Constipation Enoxaparin Sodium 40 mg 05/27/20 17:29 05/27/20 18:31 Enoxaparin Sodium 40 Mg/0.4 Ml Syringe SUBCUT 40 mg Q24H SHABANA Administration Gabapentin 300 mg 05/27/20 17:29 Gabapentin 300 Mg Capsule PO TID PRN Pain Hydroxyzine HCl 50 mg 05/27/20 17:29 05/28/20 04:09 Hydroxyzine Hcl 50 Mg Tablet PO 50 mg Q8H PRN Administration Anxiety Sodium Chloride 1,000 mls @ 100 mls/hr 05/27/20 17:29 05/28/20 03:59 Ns IVCONT 100 mls/hr .Q10H SHABANA Administration Insulin Glargine 16 unit 05/27/20 21:00 05/27/20 21:28 Insulin Glargine,Hum.Rec.Anlog 100 Unit/Ml 10 Ml Vial SUBCUT 16 unit BEDTIME SHABANA Administration Insulin Human Lispro 0 unit 05/27/20 17:29 05/28/20 11:55 Insulin Lispro 100 Unit/Ml 3 Ml Vial SUBCUT 4 unit QIDACHS SHABANA Administration Protocol Levetiracetam 500 mg 05/27/20 21:00 05/28/20 07:55 Levetiracetam 500 Mg Tablet PO 500 mg BID SHABANA Administration Ondansetron HCl 4 mg 05/27/20 17:29 Ondansetron Hcl 4 Mg/2 Ml Vial IVPUSH Q8H PRN Nausea and Vomiting Pharmacy Consult 1 each 05/27/20 15:02 Consult Rx Perform Med Rec MISCELLANE ONCE PRN Consult order Sodium Chloride 3 ml 05/27/20 17:29 05/28/20 07:55 0.9 % Sodium Chloride Flush 3 Ml Syringe IVFLUSH Not Given QSHIFT [facility] Tramadol HCl 25 mg 05/27/20 17:29 Tramadol Hcl 50 Mg Tablet PO Q6H PRN Pain, Severe (Pain Scale 7-10) Venlafaxine HCl 150 mg 05/28/20 09:00 05/28/20 07:54 Venlafaxine Hcl Er 150 Mg Cap.Er.24h PO 150 mg DAILY SHABANA Administration Zolpidem Tartrate 5 mg 05/27/20 17:29 Zolpidem Tartrate 5 Mg Tablet PO BEDTIME PRN Sleep Labs CBC & Chem 7: 05/28/20 06:01 05/28/20 06:01 Assessment and Plan (1) Hyperglycemia: Status: Acute (2) MARY (acute kidney injury): Status: Acute Assessment and Plan: This is a 54 year old female with a history of lung cancer receiving chemotherapy, radiation induced esophagitis, anxiety, fibromyalgia, adrenal insufficiency, among others send to the ED from endocrinology office with hyperglycemia DM with hyperglycemia improving unclear compliance with home meds. HbA1c 9.2, same in April. No evidence of DKA blood glucose improving continueSSI, POCs, ADA diet, MARY improving creatinine trending down -IVF -avoid nephrotoxins -follow BMP Leukocytosis complaining of abdominal pain history of ulcerative colitis UA was not done will check UA given history of ulcerative colitis and lower abdominal pain will check CT abdomen to rule out colitis h/o of opioid use disorder avoid narcotics when possible. listed allergies to motrin and tylenol will use tramadol for pain control ?Adrenal insufficiency previously on chronic prednisone, reports her doctor told her to stop it. follow BP closely Mood Continue Effexor, bupropion, Ativan, hydroxyzine, clonidine Seizure disorder Continue Keppra Seizure precautions dvt ppx - lovenox
[2020-05-28 16:42] LABS: Glucose, Whole Blood 221 mg/dL (60-115)
[2020-05-28] MEDS: polyethylene glycoL 3350 17 GM POWD.PACK PO (17:05)
[2020-05-28] MEDS: Enoxaparin Sodium 40 MG/0.4 ML SYRINGE SUBCUT (17:06)
[2020-05-28 17:37] LABS: Glucose Urine UA 250 MG/DL (NEG); Leukocyte Esterase Urine TRACE (NEG); Nitrite Urine NEG (NEG); PH 6.5 (5.0-8.0); UACC Culture Trigger YES; Urine Blood 1+ (NEG); Urine Ketones NEG (NEG); Urine Protein NEG (NEG-TRACE)
[2020-05-28 17:38] LABS: Appearance Urine CLEAR; Color Urine YELLOW
[2020-05-28 17:50] LABS: Bacteria Urine TRACE /LPF; Squamous Epithelial Cell Urine 1+ /LPF
--- NOTE | 2020-05-28 19:18 | PC.NURSE ---
Pt high fall risk for history of seizures and recent LOC. Pt refusing alarms. Pt aware of risks of not having alarms on and still would like to refuse. Pt ambulates steady. Oncoming nurse made aware.
--- NOTE | 2020-05-28 19:26 | PC.NURSE ---
1735- Pt BP 178/[address] Burns made aware. No new orders.
[2020-05-28 20:39] LABS: Glucose, Whole Blood 284 mg/dL (60-115)
[2020-05-28] MEDS: Zolpidem Tartrate 5 MG TABLET PO (22:36)
[2020-05-28] MEDS: Insulin Glargine,Hum.rec.anlog 100 UNIT/ML 10 ML VIAL 16 UNIT SUBCUT (22:37)
[2020-05-28] MEDS: Docusate Sodium 100 MG CAPSULE PO (22:37)
[2020-05-29] VITALS (10 sets, daily range): BP systolic 142–190; BP diastolic 86–110; PULSE 69–112; RESP 14–20; TEMP 36.4–36.9; O2SAT 96–99
[2020-05-29] MEDS: cloNIDine HCL 0.1 MG TABLET PO ×2 (00:16→22:24)
[2020-05-29] MEDS: 0.9 % Sodium Chloride 1,000 ML 100 ML IVCONT (00:40)
[2020-05-29] MEDS: HYDROmorphone HCl 0.5 MG/0.5 ML SYRINGE IVPUSH ×3 (03:03→23:17)
[2020-05-29] MEDS: ALPRAZolam 0.5 MG TABLET 1 MG PO ×3 (07:14→22:28)
[2020-05-29 07:42] LABS: Glucose, Whole Blood 112 mg/dL (60-115)
[2020-05-29] MEDS: levETIRAcetam 500 MG TABLET PO ×2 (09:26→22:21)
[2020-05-29] MEDS: Venlafaxine HCl ER 150 MG CAP.ER.24H PO (09:26)
[2020-05-29] MEDS: Docusate Sodium 100 MG CAPSULE PO ×2 (09:26→22:22)
[2020-05-29] MEDS: polyethylene glycoL 3350 17 GM POWD.PACK PO (09:26)
[2020-05-29] MEDS: buPROPion HCl XL 300 MG TAB.ER.24H PO (09:26)
[2020-05-29 12:03] LABS: Glucose, Whole Blood 168 mg/dL (60-115)
[2020-05-29] MEDS: Insulin Lispro 100 UNIT/ML 3 ML VIAL SUBCUT ×2 (12:10→17:15)
--- NOTE | 2020-05-29 13:58 | P.DS_ITS ---
DS: Providers Provider Date of Service: 07/09/20 Date of admission: 05/27/20 15:15 Primary care physician: Unknown Physician DS: Diagnosis Discharge Diagnosis (1) Hyperglycemia: Status: Resolved (2) MARY (acute kidney injury): Status: Resolved DS: Medications Discharge Medications Home Medications: Home Medications Medication Instructions Recorded Confirmed alprazolam 1 mg PO TID PRN 12/17/19 05/27/20 clonidine HCl 0.2 mg PO BEDTIME PRN 12/17/19 05/27/20 hydroxyzine pamoate 50 mg PO Q8H PRN 12/17/19 05/27/20 levetiracetam 500 mg PO BID 12/17/19 05/27/20 mesalamine 1,600 mg PO TID 12/17/19 05/27/20 nivolumab 240 mg/24 mL intravenous 240 mg IV Q2W 03/08/20 05/27/20 solution venlafaxine 150 mg 150 mg PO DAILY 03/08/20 05/27/20 capsule,extended release 24 hr zolpidem 10 mg tablet 10 mg PO BEDTIME PRN 03/08/20 05/27/20 bupropion HCl 150 mg PO BID 05/27/20 05/27/20 gabapentin 300 mg PO BID PRN 05/27/20 05/27/20 insulin glargine U-300 conc 20 unit SUBCUT BEDTIME 05/27/20 05/27/20 [Toujeo SoloStar U-300 Insulin] prednisone 15 mg PO DAILY 05/27/20 Previous Rx's Medication Instructions Recorded insulin aspart U-100 100 unit/mL 5 unit SUBCUT TID 30 Days #15 ml 03/24/20 (3 mL) subcutaneous pen ondansetron HCl [Zofran] 8 mg PO Q8H PRN #50 tab 05/12/20 DS: Summary Hospital Course Hospital Course: Chief Complaint: Hyperglycemia This is a 55-year-old female with a history of metastatic lung cancer who was sent from the bicycle fitter office due to hyperglycemia. Patient reports elevated blood sugars in the 500s or above for the past 2 weeks. It is unclear if she has been taking her insulin properly at home, although she reports compliance. Her lab work was significant for leukocytosis of 12.1, creatinine 1.24, random glucose of 679. Hemoglobin A1c was checked and was 9.2 . She received Fioricet for headache, Toradol for generalized pain, IV fluid and 10 units of regular insulin. Her repeat point of care sugar was 358. There is no evidence of DKA. Given that the patient was seen in the emergency department yesterday here at [facility] as well as at [facility] the day before for hyperglycemia the decision was made to admit her for further management of uncontrolled diabetes. Hosptial course: Diabetes with Hyperglcemia, A1 C of 9.2 similar to number in Febr, concern of possible not compliance raised. Blood sugar was 679 on admission but there was no evidence of DKA. She was treated with IVF and insulin and has been on Lantus of equivalent of Toujeo that she take at home/ She takes Toujeo 20 and was getting Lantus 16 and SSI, her sugars have been normal in the hspital in the hospital. Her fasting glucose this morning was 112. Stressing compliance and continuing her regimen at home and if there continues to be spikes in the blood gluse should be considered for another inuslin by her bicycle fitter. No change is being at this time. Also advise to continue Aspart as before. MARY --Resolved. Creatine was 1.24 and presently 0.72 following hydration. She likely became dehydrated from glucosuria Leukocytosis--12 on admission, repeat 7.9, no evidence of infection, likly reactive from hyperglycemia. Work up included UA, CT of abdomen and pelvis with no evidence of acute finding h/o of opioid use disorder avoid narcotics when possible. listed allergies to motrin and tylenol will use tramadol for pain control ? Adrenal insufficiency previously on chronic prednisone, reports her doctor told her to stop it. follow BP closely Mood Continue Effexor, bupropion, Ativan, hydroxyzine, clonidine Seizure disorder Continue Keppra Seizure precautions dvt ppx - lovenox Time Spent with Patient Time attestation: Total time spent providing and/or coordinating discharge services: Discharge coordination time: Greater than 30 minutes Physical Exam Vital Signs: Vital Signs: Last Vital Signs Temp 97.6 F 05/29/20 13:39 Pulse 78 05/29/20 13:39 Resp 18 05/29/20 13:39 BP 160/90 H 05/29/20 13:39 Pulse Ox 96 05/29/20 13:39 Body Mass Index 27.3 General: AO X 3, no acute distress Resp: normal resp effort GI: +BS, NT, no distention Skin: No rash Neuro: motor grossly intact Psych: appropriate affect DS: Data Data Completed and Pending Labs on day of discharge: Laboratory Results - last 24 hr 05/28/20 05/28/20 05/28/20 16:24 17:22 20:19 POC Glucose 221 H 284 H Urine Color YELLOW Urine Appearance CLEAR Urine pH 6.5 Ur Specific [place] 1.010 Urine Protein NEG Urine Glucose (UA) 250 H Urine Ketones NEG Urine Blood 1+ H Urine Nitrite NEG Ur Leukocyte Esterase TRACE H Urine RBC 1-4 Urine WBC 5-9 H Ur Squamous Epith Cells 1+ Urine Bacteria TRACE 05/29/20 05/29/20 07:23 11:55 POC Glucose 112 168 H Urine Color Urine Appearance Urine pH Ur Specific [place] Urine Protein Urine Glucose (UA) Urine Ketones Urine Blood Urine Nitrite Ur Leukocyte Esterase Urine RBC Urine WBC Ur Squamous Epith Cells Urine Bacteria Preliminary micro results at discharge 05/28/20 17:22 Urine Culture - Preliminary Urine clean catch - Clean Catch Midstream Culture in progress. Discharge Plan Discharge Anticipated Discharge Date/Time: 05/29/20 13:48 Patient Disposition: Home, Self-Care Discharge Diagnosis: Referrals: Physician,Unknown [Primary Care Provider] - Discharge Medications: Continued bupropion HCl 150 mg tablet sustained-release 12 hr 150 mg PO BID RF: 0 gabapentin 300 mg capsule 300 mg PO BID PRN (Reason: Pain) RF: 0 clonidine HCl 0.1 mg tablet 0.2 mg PO BEDTIME PRN (Reason: Anxiety) RF: 0 alprazolam 1 mg tablet 1 mg PO TID PRN (Reason: Anxiety) RF: 0 hydroxyzine pamoate 50 mg capsule 50 mg PO Q8H PRN (Reason: Anxiety) RF: 0 levetiracetam 500 mg tablet 500 mg PO BID RF: 0 mesalamine 800 mg tablet,delayed release (DR/EC) 1,600 mg PO TID RF: 0 ondansetron HCl [Zofran] 4 mg Tablet 8 mg PO Q8H PRN (Reason: Nausea And Vomiting) Qty: 50 RF: 6 Opdivo 240 mg/24 mL solution 240 mg IV Q2W RF: 0 venlafaxine 150 mg capsule,extended release 24hr 150 mg PO DAILY RF: 0 zolpidem 10 mg tablet 10 mg PO BEDTIME PRN (Reason: Sleep) RF: 0 No Action (DME) lancets [FreeStyle Lancets] 28 gauge misc See Rx Instructions .MEDSUPPLY Qty: 120 RF: 7 Toujeo SoloStar U-300 Insulin 300 unit/mL (1.5 mL) insulin pen 20 unit subcut BEDTIME 30 Days Qty: 4.5 RF: 6 insulin aspart U-100 [Novolog Flexpen U-100 Insulin] 100 unit/mL (3 mL) insul in pen 5 unit subcut TID 30 Days Qty: 15 RF: 4 Discharge Orders: Discharge Order (Routine); Ordered 05/30/20 Ordered By: Joe Tello Diet: advance to usual diet and diabetic diet Activity on Discharge: As tolerated Stand Alone Forms: Patient Portal Discharge page Care Plan Goals: Blood pressure control Health Concerns: Uncontrolled blood sugars and blood pressures Plan of Treatment: Take your insulin as recommended and follo up with your Primary care provider, endocrinoligst and Oncologist Assessment: Uncontrolled hypertension, diabetes. Discharge Date/Time: 05/30/20 12:13
[2020-05-29] MEDS: amLODIPine Besylate 5 MG TABLET PO (14:10)
--- NOTE | 2020-05-29 15:08 | MHC.CM.PN ---
NURSING APPROACHED DESMOND DUE TO PT WHO IS FLAGGED FOR D/C IS REFUSING TO LEAVE WITHOUT HER PAIN MEDICATION, CM CONTACTED PT'S PHARMACY AT [facility] ON [address] AT 2:55PM AND SPOKE W/PHARMACIST WHO REPORTED PT WAS DISMISSED FROM DR LOMAX'S OFFICE DUE TO TESTING POSITIVE FOR FENTANYL, PT HAD BEE PRESCRIBED MORPHINE ER 30 AND OXYCODONE 20MG Q8H, PER PHARMACIST THIS HAPPEN SEPTEMBER 2019 AND THAT WAS THE LAST TIME THOSE SCRIPTS WERE FILLED. PER PHARMACIST PT HAS RECEIVED ONE TIME SCRIPTS FOR OXYCODONE 5M X 2 SINCE THEN HOWEVER THE LAST TIME ANY NARCOTIC PAIN MEDICATION WAS FILLED WAS FEBRUARY 2020. DESMOND WENT TO MEET W/PT WHO WAS WITH HOSPITALIST AND RN, HOSPITALIST EXCUSED CM AND SAID HE COULD HANDLE THE PT'S ISSUES FROM NOW ON. DISCHARGE PLAN REMAINS HOME NO SERVICES, SPOUSE TO TRANSPORT
--- NOTE | 2020-05-29 15:21 | MHC.CM.PN ---
Addendum entered by Paloma Collier RN 05/29/20 16:19: PER NURSING PT'S BP IS ELEVATED AND PT WILL BE HELD ONE HOUR TO RECHECK, PLAN CONT'S TO BE D/C TODAY. Original Note: CM MET WITH HOSPITALIST AFTER HE FINISHED MTG W/PT AND REPORTS HE KNOWS PT VERY WELL AND THAT PT DECIDED SHE WILL DISCHARGE TODAY PLANNED. PT DISCHARGING HOME SELF-CARE, SPOUSE TO TRANSPORT.
[2020-05-29] MEDS: oxyCODONE HCl Immed Release 5 MG TABLET 10 MG PO (16:39)
[2020-05-29] MEDS: 0.9 % Sodium Chloride Flush 3 ML SYRINGE IVFLUSH ×2 (16:47→22:51)
[2020-05-29 17:07] LABS: Glucose, Whole Blood 216 mg/dL (60-115)
[2020-05-29] MEDS: Enoxaparin Sodium 40 MG/0.4 ML SYRINGE SUBCUT (17:16)
--- NOTE | 2020-05-29 18:34 | HO.PM.IMPN ---
Subjective Subjective Date of Service: 05/29/20 Interval History: Seen in f/u for hyperglycemia and uncontrolled blood glucose and elevated blood pressure. She was admitted from endocrinoligst office but since has been claiming that she's having headaches and was started on IV dilaudid for this. I reviewed her blood pressures and notes that the have been very high SBP in 190s. She has not been on any blood pressure medications. Her blood glucose are much better, actually fasting blood sugar this morning was 112. Review of Systems Gen: no fever Resp: no sob, no cough CV: no chest, no QUILES, no leg edema GI: No n/v, no abd pain Neuro: No confusion, headache not new Physical Exam Vital Signs: Vital Signs: Last Vital Signs Temp 98.5 F 05/29/20 15:40 Pulse 77 05/29/20 15:40 Resp 14 05/29/20 15:40 BP 190/105 H 05/29/20 15:40 Pulse Ox 98 05/29/20 15:40 Body Mass Index 27.3 General: AO X 3, no acute distress Resp: normal resp effort CVS: S1,S2,RRR GI: +BS, NT, no distention Skin: No rash Neuro: motor grossly intact Psych: appropriate affect Objective Data Current Medications Generic Name Dose Route Start Last Admin Trade Name Freq PRN Reason Stop Dose Admin Acetaminophen 650 mg 05/27/20 17:29 Acetaminophen 325 Mg Tablet PO Q6H PRN Pain, Mild (Pain Scale 1-3) Alprazolam 1 mg 05/27/20 17:29 05/29/20 16:47 Alprazolam 0.5 Mg Tablet PO 1 mg TID PRN Administration Anxiety Bupropion HCl 300 mg 05/28/20 09:00 05/29/20 09:26 Bupropion Hcl Xl 300 Mg Tab.Er.24h PO 300 mg DAILY SHABANA Administration Clonidine HCl 0.1 mg 05/27/20 17:29 05/29/20 00:16 Clonidine Hcl 0.1 Mg Tablet PO 0.1 mg BEDTIME MRX1 PRN Administration Anxiety Protocol Docusate Sodium 100 mg 05/27/20 17:29 Docusate Sodium 100 Mg Capsule PO DAILY PRN Constipation Docusate Sodium 100 mg 05/28/20 21:00 05/29/20 09:26 Docusate Sodium 100 Mg Capsule PO 100 mg BID SHABANA Administration Enoxaparin Sodium 40 mg 05/27/20 17:29 05/29/20 17:16 Enoxaparin Sodium 40 Mg/0.4 Ml Syringe SUBCUT 40 mg Q24H SHABANA Administration Gabapentin 300 mg 05/27/20 17:29 Gabapentin 300 Mg Capsule PO TID PRN Pain Hydralazine HCl 10 mg 05/29/20 18:28 Hydralazine Hcl 20 Mg/Ml Vial IVPUSH Q6H PRN Sbp > 180 Protocol Hydroxyzine HCl 50 mg 05/27/20 17:29 05/28/20 04:09 Hydroxyzine Hcl 50 Mg Tablet PO 50 mg Q8H PRN Administration Anxiety Sodium Chloride 1,000 mls @ 100 mls/hr 05/27/20 17:29 05/29/20 09:47 Ns IVCONT Not Given .Q10H SHABANA Promethazine HCl 12.5 mg/ 50.5 mls @ 202 mls/hr 05/29/20 18:27 Sodium Chloride IV Q4H PRN Nausea and Vomiting Insulin Glargine 16 unit 05/27/20 21:00 05/28/20 22:37 Insulin Glargine,Hum.Rec.Anlog 100 Unit/Ml 10 Ml Vial SUBCUT 16 unit BEDTIME SHABANA Administration Insulin Human Lispro 0 unit 05/27/20 17:29 05/29/20 17:15 Insulin Lispro 100 Unit/Ml 3 Ml Vial SUBCUT 4 unit QIDACHS SHABANA Administration Protocol Levetiracetam 500 mg 05/27/20 21:00 05/29/20 09:26 Levetiracetam 500 Mg Tablet PO 500 mg BID SHABANA Administration Ondansetron HCl 4 mg 05/27/20 17:29 Ondansetron Hcl 4 Mg/2 Ml Vial IVPUSH Q8H PRN Nausea and Vomiting Oxycodone HCl 10 mg 05/29/20 15:44 05/29/20 16:39 Oxycodone Hcl Immed Release 5 Mg Tablet PO 10 mg Q6H PRN Administration Pain, Severe (Pain Scale 7-10) Pharmacy Consult 1 each 05/27/20 15:02 Consult Rx Perform Med Rec MISCELLANE ONCE PRN Consult order Polyethylene Glycol 17 gm 05/28/20 16:15 05/29/20 09:26 Polyethylene Glycol 3350 17 Gm Powd.Pack PO 17 gm DAILY SHABANA Administration Sodium Chloride 3 ml 05/27/20 17:29 05/29/20 16:47 0.9 % Sodium Chloride Flush 3 Ml Syringe IVFLUSH 3 ml QSHIFT SHABANA Administration Venlafaxine HCl 150 mg 05/28/20 09:00 05/29/20 09:26 Venlafaxine Hcl Er 150 Mg Cap.Er.24h PO 150 mg DAILY SHABANA Administration Zolpidem Tartrate 5 mg 05/27/20 17:29 05/28/20 22:36 Zolpidem Tartrate 5 Mg Tablet PO 5 mg BEDTIME PRN Administration Sleep Labs CBC & Chem 7: 05/28/20 06:01 05/28/20 06:01 Microbiology Microbiology Results: Microbiology 05/28/20 17:22 Urine clean catch - Clean Catch Midstream Urine Culture - Preliminary Culture in progress. 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 Hyperglycemia episode resolved. She has been on Lantus 16 and SSI compare to Toujeo 20 with Aspart at home and now better control. Compliance is in question, altough she says she takes all her meds. Hgb A1C is 9.2 essentially unchanged since last month. Continue diabetic diet, Lantus and SSI and follow up with Summer School Coordinator. MARY--resolved with IVF Leukocytosis--reactive and resolved. h/o of opioid use disorder--She is not on chronic narcotics, her pcp nor onologist will prescribe it. There is concern for aberant opioid seeking behavior. She presented with no issue related to pain and for some reason has been on IV dilaudid with no clear indication and this has been a pattern in the past. I will discontinue IV Narcotics at this time and PRN oxycodone and once available, we discuss with her oncolgist and PCP about reasons she's not on chronic pain medication. \ ?Adrenal insufficiency previously on chronic prednisone, reports her doctor told her to stop it. follow BP closely Mood Continue Effexor, bupropion, Ativan, hydroxyzine, clonidine Seizure disorder Continue Keppra Seizure precautions HTN--She is not on any meds, I am starting Norvasc 5 mg and adding PRN Hydralazine. I will request CT of head in light of report of headache and naudea and vomitting dvt ppx - lovenox
--- NOTE | 2020-05-29 19:45 | PC.NURSE ---
pt seen by Dr Tello today and discharged home d/t improved hyperglycemia. Pt reported that she would not leave unless given pain medication upon dischage for her untreated CA pain. Dr Tello agreed after a lengthy discussion with pt to provide PO pain medication until she could follow up with her oncology team or new PCP outpatient. Pt hypertensive, recommended to wait to observe BP prior to discharge. After about an hr pt remained hypertensive, recieved PO pain medication and anxiety medication as requested by patient. Per conversation with MD pt to stay overnight to observe HTN and could be d/c'd in the am. Updated pt on plan, but pt cont to be aggitated about pain medication conversation, stating that she could not stay here if she was not give IV pain medication instead of the PO meds that pt stated did not do anything. Pt cont with aggitation and anxiety, episode of nausea and vomitting. Updated MD. Pt BP came down to 143/ 70. Pt reporting that she must speak with the night hospitalist/ nursing rate supervisor to discuss why she cannot get IV pain medication to adequatly treat her pain while she is here in the hospital. Updated the nursing rate supervisor. Updated the oncoming nurse that pt would like to speak to night hospitalist. Pt stated she will wait/ not leave AMA until she can speak to someone.
[2020-05-29 20:46] LABS: Glucose, Whole Blood 106 mg/dL (60-115)
[2020-05-29] MEDS: Zolpidem Tartrate 5 MG TABLET PO (22:21)
[2020-05-29] MEDS: Insulin Glargine,Hum.rec.anlog 100 UNIT/ML 10 ML VIAL 16 UNIT SUBCUT (22:50)
[2020-05-30 00:42] LABS: Glucose, Whole Blood 281 mg/dL (60-115)
[2020-05-30 03:19] VITALS: BP 160/103; PULSE 70; RESP 19; TEMP 36.3; O2SAT 96
[2020-05-30] MEDS: oxyCODONE HCl Immed Release 5 MG TABLET 10 MG PO (05:37)
[2020-05-30] MEDS: ALPRAZolam 0.5 MG TABLET 1 MG PO (05:42)
[2020-05-30 07:43] LABS: Glucose, Whole Blood 167 mg/dL (60-115)
[2020-05-30 07:49] VITALS: BP 135/90; PULSE 96; RESP 18; TEMP 36.4; O2SAT 96
[2020-05-30] MEDS: Venlafaxine HCl ER 150 MG CAP.ER.24H PO (07:54)
[2020-05-30] MEDS: buPROPion HCl XL 300 MG TAB.ER.24H PO (07:54)
[2020-05-30] MEDS: polyethylene glycoL 3350 17 GM POWD.PACK PO (07:54)
[2020-05-30] MEDS: Docusate Sodium 100 MG CAPSULE PO (07:54)
[2020-05-30] MEDS: levETIRAcetam 500 MG TABLET PO (07:54)
[2020-05-30] MEDS: 0.9 % Sodium Chloride Flush 3 ML SYRINGE IVFLUSH (07:55)
[2020-05-30] MEDS: Insulin Lispro 100 UNIT/ML 3 ML VIAL SUBCUT (07:56)
--- NOTE | 2020-05-30 08:48 | MHC.CM.PN ---
PT CLEARED TO DC HOME TODAY WITH NO SERVICES. FAMILY TO TRANSPORT
[2020-05-30 09:13] LABS: Glucose, Whole Blood > 600 mg/dL (60-115)
== END 2020-05-30 12:13 | disposition home or self-care (01) ==
LOC: HO.ED 11:50 → HO.EDOVER 15:28 → HO.S3 16:58
PROVIDERS: Internal Medicine; Physician Assistant; Physician Assistant Medical; Admitting Provider Family Medicine; Emergency Provider Emergency Medicine Emergency Medical Services; PCP Internal Medicine; Visit Provider Internal Medicine
DX: E11.65 Type 2 diabetes mellitus with hyperglycemia (principal); E27.3 Drug-induced adrenocortical insufficiency; T50.8X5A Adverse effect of diagnostic agents, initial encounter; E05.90 Thyrotoxicosis, unspecified without thyrotoxic crisis or storm; E04.2 Nontoxic multinodular goiter; C34.90 Malignant neoplasm of unspecified part of unspecified bronchus or lung; N17.9 Acute kidney failure, unspecified; R51.9 Headache, unspecified; R11.2 Nausea with vomiting, unspecified; R10.9 Unspecified abdominal pain; R14.0 Abdominal distension (gaseous); Z92.3 Personal history of irradiation; D72.829 Elevated white blood cell count, unspecified; F17.210 Nicotine dependence, cigarettes, uncomplicated; Z20.822 Contact with and (suspected) exposure to COVID-19; Z96.612 Presence of left artificial shoulder joint; Z88.8 Allergy status to other drugs, medicaments and biological substances; Z79.4 Long term (current) use of insulin; Z79.891 Long term (current) use of opiate analgesic; Z79.899 Other long term (current) drug therapy
CPT/HCPCS: 36415; 70450; 74177; 80048; 80076; 80307; 80320; 81001; 81003; 82009; 82947; 83036; 83735; 85025; 87086; 87635; 93005; 99212; 99218; 99285; J1170; J1650; J1885; Q9967

== ENCOUNTER → 2020-06-17 13:59 | Outpatient (BNVA) | payer OTHER, SELFPAY | PROVIDERS: PCP Internal Medicine; Visit Provider Internal Medicine Endocrinology, Diabetes & Metabolism | DX: E11.9 Type 2 diabetes mellitus without complications (principal); E27.3 Drug-induced adrenocortical insufficiency; E05.90 Thyrotoxicosis, unspecified without thyrotoxic crisis or storm; E04.2 Nontoxic multinodular goiter | CPT/HCPCS: 82947; 99212 ==

== ENCOUNTER 2020-07-13 09:46 | Outpatient (REF) | payer OTHER, SELFPAY ==
--- NOTE | ~2020-07-13 | FL_ITS ---
EXAMINATION: FL GI SERIES CLINICAL INFORMATION: Dysphagia. COMPARISON: None TECHNIQUE: Upper GI air-contrast study was performed in the upright and lying positions and a modified barium swallow with a barium tablet was performed in the upright view. FINDINGS: Following oral administration of thick barium and effervescent granules, there is normal propagation of the bolus from the oral cavity through the pharynx, esophagus and into the stomach without any evidence of obstruction, narrowing or stricture. There is no intraluminal mass or narrowing. However, there is incomplete distention of the esophagus during the transit of the bolus. On placing the patient prone and lying, the course, caliber and peristalsis of the stomach, duodenal bulb and the sweep are normal. Mild gastroesophageal reflux without hiatal hernia is seen. The mucosal pattern of stomach and the duodenum is normal. On oral administration of a barium tablet, there was partial holdup in the mid chest which cleared after 5 minutes of oral administration of water. FLUOROSCOPY TIME: 3.5 minutes Dose Area Product: 40.43 uGy-m2 (microgray-meter squared) FL/FL upper GI series IMPRESSION: Mild gastroesophageal reflux. Non-distending esophagus but no obstruction or intraluminal filling defect. The barium tablet is transiently obstructed in the mid esophagus during the barium swallow exam.
== END 2020-07-13 09:47 | disposition home or self-care (01) ==
LOC: HO.XRAY 09:46
PROVIDERS: Visit Provider Internal Medicine
DX: R13.14 Dysphagia, pharyngoesophageal phase (principal); R10.13 Epigastric pain
CPT/HCPCS: 74240

== ENCOUNTER → 2020-07-15 10:15 | Outpatient (BNVA) | payer OTHER, SELFPAY | PROVIDERS: Visit Provider Surgery | DX: C34.92 Malignant neoplasm of unspecified part of left bronchus or lung (principal); F17.210 Nicotine dependence, cigarettes, uncomplicated; Z79.899 Other long term (current) drug therapy; Z79.4 Long term (current) use of insulin; Z92.21 Personal history of antineoplastic chemotherapy | CPT/HCPCS: 99212 ==

== ENCOUNTER 2020-07-19 12:50 | Emergency (ER) | payer OTHER, SELFPAY ==
--- NOTE | ~2020-07-19 | CT_ITS ---
EXAMINATION: CT ABDOMEN AND PELVIS WITHOUT CONTRAST Topogram shows significant amount of retained oral contrast in the distal colon and rectum. Additional images were not obtained.
--- NOTE | ~2020-07-19 | XR_ITS ---
EXAMINATION: XR ABDOMEN KUB CLINICAL INDICATION: Evaluate for obstruction. COMPARISON: None TECHNIQUE: AP view of the abdomen. FINDINGS: There is residual oral contrast seen in the left colon. There is thin linear contrast seen in the right lower quadrant likely within the appendix. The abdomen is almost gasless. No radiopaque calculi or organomegaly seen. There are surgical chioma in the right upper quadrant. No gross bony abnormality noted. XR/XR KUB IMPRESSION: No evidence of bowel obstruction seen.
[2020-07-19 12:59] VITALS: BP 147/92; BP 156/83; PULSE 70; PULSE 73; RESP 22; TEMP 36.3; O2SAT 100; BMI 25.7
--- NOTE | 2020-07-19 13:20 | ECG_ITS ---
Test Reason : ABDOMINAL PAIN Blood Pressure : / mmHG Vent. Rate : 064 BPM Atrial Rate : 064 BPM P-R Int : 110 ms QRS Dur : 076 ms QT Int : 462 ms P-R-T Axes : 038 061 045 degrees QTc Int : 476 ms Sinus rhythm with sinus arrhythmia with short CA Nonspecific T wave abnormality Prolonged QT Abnormal ECG When compared with ECG of 27-MAY-2020 11:28, ST no longer elevated in Anterior leads Nonspecific T wave abnormality, worse in Inferior leads Nonspecific T wave abnormality now evident in Anterolateral leads Referred By: Meredith Thomason Electronically Signed By:Javier Nielson
--- NOTE | 2020-07-19 13:22 | ED_ITS ---
HPI - Abdominal Pain General Chief Complaint: Abdominal Pain Stated Complaint: ABD PAIN,N/V, H/O LUNG CA Time Seen by Provider: 07/19/20 12:52 Source: patient and EMS Mode of arrival: EMS Limitations: no limitations History of Present Illness HPI narrative: 55-year-old female with history of metastatic lung cancer s/p radiation on current chemotherapy (last received ?5 weeks ago), DM (dx Dec 2019) on insulin, fibromyalgia with chronic pain and multiple ED visits concerning for opoiod use disorder followed by pain management, hx colitis, adrenal insufficiency here with complaints of abdominal pain, vomiting since last evening. No diarrhea, unsure of last BM. Patient vomiting in room and not providing much information. 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 Related Data Home Medications Medication Instructions Recorded Confirmed alprazolam 1 mg PO TID PRN 12/17/19 07/19/20 clonidine HCl 0.2 mg PO BEDTIME PRN 12/17/19 07/19/20 hydroxyzine pamoate 50 mg PO Q8H PRN 12/17/19 07/19/20 levetiracetam 500 mg PO BID 12/17/19 07/19/20 mesalamine 1,600 mg PO TID 12/17/19 07/19/20 nivolumab 240 mg/24 mL intravenous 240 mg IV Q2W 03/08/20 07/19/20 solution venlafaxine 150 mg 150 mg PO DAILY 03/08/20 07/19/20 capsule,extended release 24 hr zolpidem 10 mg tablet 10 mg PO BEDTIME PRN 03/08/20 07/19/20 bupropion HCl 150 mg PO BID 05/27/20 07/19/20 gabapentin 300 mg PO BID PRN 05/27/20 07/19/20 amlodipine 1 tab PO DAILY 07/19/20 07/19/20 Previous Rx's Medication Instructions Recorded ondansetron HCl [Zofran] 8 mg PO Q8H PRN #50 tab 05/12/20 Touchevyo SoloStar U-300 Insulin 300 20 unit SUBCUT BEDTIME 30 Days 06/17/20 unit/mL (1.5 mL) subcutaneous pen #4.5 ml NS insulin aspart U-100 100 unit/mL 5 unit SUBCUT TID 30 Days #15 ml 06/17/20 (3 mL) subcutaneous pen FreeStyle Lancets 28 gauge #120 ea NS 07/01/20 docusate sodium [Colace] 100 mg PO BID #30 cap 07/19/20 Allergies Allergy/AdvReac Type Severity Reaction Status Date / Time acetaminophen [Tylenol] AdvReac Unknown Abdominal Verified 07/15/20 10:16 Pain ibuprofen AdvReac Unknown Abdominal Verified 07/15/20 10:16 Pain senna AdvReac Unknown Headache Verified 07/15/20 10:16 Review of Systems Review of Systems Yes all other systems are reviewed and are negative Constitutional: Reports no additional constitutional complaints, Denies body ache(s), Denies chills, Denies fever(s), Denies headache(s) and Denies weakness Eyes: Reports no additional eye complaints and Denies change in vision Reports system reviewed and no additional complaints, except as documented, Denies dizziness, Denies headache(s), Denies nasal congestion, Denies nasal discharge and Denies neck pain Cardiovascular: Reports no additional cardiovascular complaints, Denies chest pain, Denies leg edema and Denies dyspnea Respiratory: Reports no additional respiratory complaints, Denies cough and Denies dyspnea Gastrointestinal: Reports no additional gastrointestinal complaints, Reports abdominal pain, Denies diarrhea, Reports nausea and Reports vomiting Genitourinary: Reports no additional female genitourinary complaints and Denies urinary incontinence Musculoskeletal: Reports no additional musculoskeletal complaints, Denies back pain, Denies arthralgias, Denies joint swelling, Denies neck pain, Denies numbness and Denies tingling Skin/Breast: Reports system reviewed and no additional complaints, except as docu and Denies rash Reports system reviewed and no additional complaints, except as documented, Denies Abnormal speech present, Denies dizziness, Denies headache(s), Denies n umbness, Denies tingling and Denies weakness Physical Exam Vital Signs: Vital Signs: Last Vital Signs Temp 97.4 F 07/19/20 12:59 Pulse 70 07/19/20 12:59 Resp 16 07/19/20 15:33 BP 156/83 H 07/19/20 12:59 Pulse Ox 100 07/19/20 12:59 Body Mass Index 25.7 Const: General: cooperative and anxious Orientation/consciousness: patient oriented x3 Limitations: no limitations HENMT: Head: Yes normal to inspection Ears: hearing grossly normal bilaterally General nose exam: Normal external nose present Face and sinus: Yes normal facial exam Mouth: Normal oral and palatal mucosa present Throat: Yes posterior oropharynx normal Eyes: General: appearance normal, both eyes and all related structures Pupils: Equal, round and reactive pupils present Neck: Neck: Yes normal visual inspection Chest: Chest palpation & inspection: normal inspection of the chest Resp: Effort & Inspection: normal respiratory effort Auscultation: clear to auscultation bilaterally Cardio: Rate: regular rate Rhythm: regular rhythm Peripheral pulses: Peripheral pulses 2+ throughout GI: Inspection: Yes normal to inspection Palpation (GI): Soft to palpation and Tenderness to palpation present (GI) (mod diffuse, guarding in LLQ) Auscultation: normal bowel sounds Back/Spine/Pelvis: Thoracic/Lumbar Spine: thoracic and lumbar spine normal to inspection Skin: General skin exam: no rashes or lesions noted Neuro: General: patient oriented x3, no focal motor deficits and normal sensation to monofilament Cranial nerves: Yes Equal, round and reactive pupils present Cognition (Neuro): normal cognition Speech: No Abnormal speech present Gait exam (Neuro): Normal gait present Motor exam (neuro): 5/5 motor strength present throughout Extrem: General: Yes normal to inspection, Yes no pedal edema and Yes no calf tenderness Course Course Course Narrative: 55 yo female here with diffuse AP more focal in LLQ with guarding with bilious emesis noted. Will need labs, UA, CT/AP, COVID screen. Multiple visits for hyperglycemia (patient reports running high at home), will check VBG, acetone. 1440-patient has a very mild leukocytosis which is likely reactive from vomiting. Elevated lactic acid from vomiting/dehydration. Continued pain and vomiting despite additional round of analgesia. Unfortunately, I am unable to perform a CT scan on the patient d/t her recently having an UGI and barium noted on the initial scan. It would be nondiagnostic. ? colitis vs obstruction vs constipation. Will discuss with Medicine to admit. Dr Garcia notified patient here. 1530-Additional episode of vomiting. Will repeat dose of analgesia, antiemetic. 1600-Spoke to Dr Beard from medicine. Requesting KUB. 1700-KUB shows no evidence of obstruction. There is residual oral contrast the left colon. On my assessment there was a large amount of stool with contrast noted in the rectum. Rectal exam shows fecal impaction. Digital disimpaction done with Fleet enema with large bowel movement. Patient feeling much improved after this. Abdomen is soft and nontender. She has had no additional vomiting episodes and several hours. Discussed patient with Dr. Arias is from surgery. Less likely SBO with improvement of symptoms, now moving stools. Less likely colitis with improvement of symptoms. More likely constipation which is slow transit based on residual barium. Likely secondary to opiate use. Will send patient home with stool softeners and Fleet enemas. She is taking MiraLax and we discussed continuing this.. Reviewed worrisome signs and symptoms and when to return to the emergency department. Comfortable discharge home. MDM - Abdominal Pain MDM Narrative Medical decision making narrative: Diverticultitis, gastroenterisis, gastritis Medical Records Attestation: I reviewed the patient's medical records. Lab Data Attestation: I reviewed the patient's lab results. Result diagrams: 07/19/20 13:32 07/19/20 13:32 Labs: Lab Results 07/19/20 07/19/20 07/19/20 Range/Units 13:28 13:30 13:32 WBC 11.9 H (4.8-10.8) X10*3/uL RBC 4.60 D (4.20-5.50) X10*6/uL Hgb 12.9 D (12.0-16.0) g/dl Hct 38.9 D (37-47) % MCV 84.6 (80-98) fL MCH 28.0 (27.0-33.0) pg MCHC 33.2 (31.0-35.0) g/dl RDW 13.3 (11.0-16.0) % Plt Count 325 D (160-400) X10*3/uL MPV 11.3 (9.4-12.3) fL Immature Gran % (Auto) 0.4 (0.0-0.4) % Neut % (Auto) 80.5 H (45-73) % Lymph % (Auto) 14.3 L (20-40) % [place] % (Auto) 4.1 (2-11) % Eos % (Auto) 0.1 (0-4) % Baso % (Auto) 0.6 (0-2) % Lymph # (Auto) 1.7 (1.2-4.9) X10*3/uL [place] # (Auto) 0.5 (0.1-1.2) X10*3/uL Eos # (Auto) 0.0 (0.0-0.4) X10*3/uL Baso # (Auto) 0.1 (0.0-0.2) X10*3/uL Abs Immat Gran (auto) 0.05 H (0.00-0.03) X10*3/uL Absolute Neuts (auto) 9.5 H (2.0-8.3) X10*3/uL Absolute Nucleated RBC 0.000 (0.0-0.012) X10*3/uL Nucleated RBC % (auto) 0.0 (0.0-0.2) /100WBC PT (10.8-13.0) SEC INR (0.9-1.1) VBG pH (7.32-7.43) VBG pCO2 mmHg VBG pO2 mmHg VBG HCO3 (22-26) mmol/L VBG O2 Saturation % VBG Base Excess mmol/L Sodium (135-145) mmol/L Potassium (3.3-5.1) mmol/L Chloride (96-108) mmol/L Carbon Dioxide (22-29) mmol/L Anion Gap (12-20) BUN (9-16) mg/dL Creatinine (0.5-1.4) mg/dL Estim Creat Clear Calc Estimated GFR POC Glucose 269 H (60-115) mg/dL Random Glucose (60-115) mg/dL Lactic Acid (0.5-2.0) mmol/L Lactic Acid Fup @ 2Hr (0.5-2.0) mmol/L Calcium (8.4-10.2) mg/dL Magnesium (1.6-2.6) mg/dL Total Bilirubin (0.0-1.0) mg/dL Direct Bilirubin (0.0-0.5) mg/dL AST (5-31) U/L ALT (0-31) U/L Alkaline Phosphatase (39-117) U/L Troponin I High Sens (<3.5-17.0) ng/L Total Protein (6.5-8.0) g/dL Albumin (3.5-5.0) g/dL Lipase (8-78) U/L Acetone, Qual (Negative) COVID-19 (OZIEL) Negative (Negative) COVID-19 Clin Com See Note 07/19/20 07/19/20 07/19/20 Range/Units 13:32 13:32 13:32 WBC (4.8-10.8) X10*3/uL RBC (4.20-5.50) X10*6/uL Hgb (12.0-16.0) g/dl Hct (37-47) % MCV (80-98) fL MCH (27.0-33.0) pg MCHC (31.0-35.0) g/dl RDW (11.0-16.0) % Plt Count (160-400) X10*3/uL MPV (9.4-12.3) fL Immature Gran % (Auto) (0.0-0.4) % Neut % (Auto) (45-73) % Lymph % (Auto) (20-40) % [place] % (Auto) (2-11) % Eos % (Auto) (0-4) % Baso % (Auto) (0-2) % Lymph # (Auto) (1.2-4.9) X10*3/uL [place] # (Auto) (0.1-1.2) X10*3/uL Eos # (Auto) (0.0-0.4) X10*3/uL Baso # (Auto) (0.0-0.2) X10*3/uL Abs Immat Gran (auto) (0.00-0.03) X10*3/uL Absolute Neuts (auto) (2.0-8.3) X10*3/uL Absolute Nucleated RBC (0.0-0.012) X10*3/uL Nucleated RBC % (auto) (0.0-0.2) /100WBC PT 14.0 H (10.8-13.0) SEC INR 1.2 H (0.9-1.1) VBG pH (7.32-7.43) VBG pCO2 mmHg VBG pO2 mmHg VBG HCO3 (22-26) mmol/L VBG O2 Saturation % VBG Base Excess mmol/L Sodium 139 (135-145) mmol/L Potassium 3.7 (3.3-5.1) mmol/L Chloride 101 (96-108) mmol/L Carbon Dioxide 21 L (22-29) mmol/L Anion Gap 21 H (12-20) BUN 10 (9-16) mg/dL Creatinine 0.91 (0.5-1.4) mg/dL Estim Creat Clear Calc 66.1 Estimated GFR > 60 POC Glucose (60-115) mg/dL Random Glucose 287 H D (60-115) mg/dL Lactic Acid 2.5 H* (0.5-2.0) mmol/L Lactic Acid Fup @ 2Hr (0.5-2.0) mmol/L Calcium 9.8 D (8.4-10.2) mg/dL Magnesium 1.8 (1.6-2.6) mg/dL Total Bilirubin 1.0 (0.0-1.0) mg/dL Direct Bilirubin 0.4 (0.0-0.5) mg/dL AST 24 D (5-31) U/L ALT 27 (0-31) U/L Alkaline Phosphatase 127 H (39-117) U/L Troponin I High Sens (<3.5-17.0) ng/L Total Protein 7.7 (6.5-8.0) g/dL Albumin 4.4 (3.5-5.0) g/dL Lipase 7 L (8-78) U/L Acetone, Qual Negative (Negative) COVID-19 (OZIEL) (Negative) COVID-19 Clin Com 07/19/20 07/19/20 07/19/20 Range/Units 13:32 13:36 17:20 WBC (4.8-10.8) X10*3/uL RBC (4.20-5.50) X10*6/uL Hgb (12.0-16.0) g/dl Hct (37-47) % MCV (80-98) fL MCH (27.0-33.0) pg MCHC (31.0-35.0) g/dl RDW (11.0-16.0) % Plt Count (160-400) X10*3/uL MPV (9.4-12.3) fL Immature Gran % (Auto) (0.0-0.4) % Neut % (Auto) (45-73) % Lymph % (Auto) (20-40) % [place] % (Auto) (2-11) % Eos % (Auto) (0-4) % Baso % (Auto) (0-2) % Lymph # (Auto) (1.2-4.9) X10*3/uL [place] # (Auto) (0.1-1.2) X10*3/uL Eos # (Auto) (0.0-0.4) X10*3/uL Baso # (Auto) (0.0-0.2) X10*3/uL Abs Immat Gran (auto) (0.00-0.03) X10*3/uL Absolute Neuts (auto) (2.0-8.3) X10*3/uL Absolute Nucleated RBC (0.0-0.012) X10*3/uL Nucleated RBC % (auto) (0.0-0.2) /100WBC PT (10.8-13.0) SEC INR (0.9-1.1) VBG pH 7.56 H (7.32-7.43) VBG pCO2 26 mmHg VBG pO2 43 mmHg VBG HCO3 23 (22-26) mmol/L VBG O2 Saturation 77.0 % VBG Base Excess 2.9 mmol/L Sodium (135-145) mmol/L Potassium (3.3-5.1) mmol/L Chloride (96-108) mmol/L Carbon Dioxide (22-29) mmol/L Anion Gap (12-20) BUN (9-16) mg/dL Creatinine (0.5-1.4) mg/dL Estim Creat Clear Calc Estimated GFR POC Glucose (60-115) mg/dL Random Glucose (60-115) mg/dL Lactic Acid (0.5-2.0) mmol/L Lactic Acid Fup @ 2Hr 1.6 (0.5-2.0) mmol/L Calcium (8.4-10.2) mg/dL Magnesium (1.6-2.6) mg/dL Total Bilirubin (0.0-1.0) mg/dL Direct Bilirubin (0.0-0.5) mg/dL AST (5-31) U/L ALT (0-31) U/L Alkaline Phosphatase (39-117) U/L Troponin I High Sens < 3.5 (<3.5-17.0) ng/L Total Protein (6.5-8.0) g/dL Albumin (3.5-5.0) g/dL Lipase (8-78) U/L Acetone, Qual (Negative) COVID-19 (OZIEL) (Negative) COVID-19 Clin Com Imaging Data Abdominal x-ray: Attestation: I personally reviewed and interpreted this imaging study as follows: Radiologist's impression: [facility] [place] [id number] ReportSigned Patient: Desire Azar MMR#: [id number]: [id number]:[id number]/Sex: 55 / FADM Date: 07/19/20Loc: EDAttending Dr: Ordering Physician: GARRET LEVINE NP Date of Service: 07/19/20 Procedure(s): XR KUB Accession Number(s): [id number] cc: GARRET LEVINE NP~ EXAMINATION: XR ABDOMEN KUB CLINICAL INDICATION: Evaluate for obstruction. COMPARISON: None TECHNIQUE: AP view of the abdomen. FINDINGS: There is residual oral contrast seen in the left colon. There is thin linear contrast seen in the right lower quadrant likely within the appendix. The abdomen is almost gasless. No radiopaque calculi or organomegaly seen. There are surgical chioma in the right upper quadrant. No gross bony abnormality noted. XR/XR KUB IMPRESSION: No evidence of bowel obstruction seen. ECG Data Attestation: I personally reviewed and interpreted this ECG as follows: ECG interpretation date: 07/19/20 ECG interpretation time: 14:07 Interpretation: Sinus rhythm with sinus arrhythmia,, normal CO, normal QRS, prolonged QTC 476 Discharge Plan Discharge Clinical Impression: Constipation Qualifiers: Constipation type: unspecified constipation type Qualified Code(s): K59.00 - Constipation, unspecified Patient Disposition: Home, Self-Care Instructions: Constipation (ED) Prescriptions: New docusate sodium [Colace] 100 mg capsule 100 mg PO BID Qty: 30 RF: 0 No Action (DME) lancets [FreeStyle Lancets] 28 gauge misc See Rx Instructions .MEDSUPPLY Qty: 120 RF: 7 bupropion HCl 150 mg tablet sustained-release 12 hr 150 mg PO BID RF: 0 gabapentin 300 mg capsule 300 mg PO BID PRN (Reason: Pain) RF: 0 clonidine HCl 0.1 mg tablet 0.2 mg PO BEDTIME PRN (Reason: Anxiety) RF: 0 alprazolam 1 mg tablet 1 mg PO TID PRN (Reason: Anxiety) RF: 0 hydroxyzine pamoate 50 mg capsule 50 mg PO Q8H PRN (Reason: Anxiety) RF: 0 levetiracetam 500 mg tablet 500 mg PO BID RF: 0 mesalamine 800 mg tablet,delayed release (DR/EC) 1,600 mg PO TID RF: 0 ondansetron HCl [Zofran] 4 mg Tablet 8 mg PO Q8H PRN (Reason: Nausea And Vomiting) Qty: 50 RF: 6 amlodipine 5 mg tablet 1 tab PO DAILY RF: 0 Opdivo 240 mg/24 mL solution 240 mg IV Q2W RF: 0 venlafaxine 150 mg capsule,extended release 24hr 150 mg PO DAILY RF: 0 zolpidem 10 mg tablet 10 mg PO BEDTIME PRN (Reason: Sleep) RF: 0 Toujeo SoloStar U-300 Insulin 300 unit/mL (1.5 mL) insulin pen 20 unit subcut BEDTIME 30 Days Qty: 4.5 RF: 6 insulin aspart U-100 [Novolog Flexpen U-100 Insulin] 100 unit/mL (3 mL) insulin pen 5 unit subcut TID 30 Days Qty: 15 RF: 4 Referrals: Physician,Unknown [Primary Care Provider] - 2 days Interventions: ED Discharge Assessment Last Done: 07/19/20 17:57 Discharge Date/Time: 07/19/20 18:02 [facility] Past Medical History Attestation statement: The following information was validated with the patient. Source: old records reviewed and nursing notes reviewed Medical History Adrenal insufficiency due to cancer therapy Aftercare following left shoulder joint replacement surgery Arthritis Asthma Colitis COPD (chronic obstructive pulmonary disease) Depression Diabetes type 2, uncontrolled Fibromyalgia History of lung cancer Hypothyroidism Multinodular goiter Newly diagnosed diabetes Non-small cell carcinoma of left lung, stage 4 Opioid abuse Opioid use disorder Pancreatitis (~02/2018) Radiation-induced esophagitis Subclinical hyperthyroidism Surgical History History of History of cholecystectomy (~12/02/08) History of endometrial ablation (~07/25/06) History of esophageal dilatation (~02/24/18) History of esophagogastroduodenoscopy (EGD) (~09/04/19) Hx of blepharoplasty (~2018) Hx of shoulder surgery (~2014) Family History Family History Father Pancreatic cancer Mother Diabetes Brother Diabetes Sister Diabetes Social History Social History Household Members: Family Housing: House Alcohol intake: never Smoking Status: Light tobacco smoker Tobacco Type: Cigarette Years Smoked: 45 Second Hand Smoke Exposure: No Use of substances other than those prescribed or required for medical reasons: No Advance Directives: Yes Advance Directives on File: Yes Advance Directives Date on File: 05/12/20 Patient : No service: No Current occupational status: unemployed and disabled
[2020-07-19 13:34] LABS: Glucose, Whole Blood 269 mg/dL (60-115)
[2020-07-19] MEDS: 0.9 % Sodium Chloride 1,000 ML 999 ML IV (13:34)
[2020-07-19 13:37] VITALS: RESP 16
[2020-07-19] MEDS: ondansetron HCL 4 MG/2 ML VIAL IVPUSH (13:37)
[2020-07-19] MEDS: Morphine Sulfate 4 MG/ML CARTRIDGE IVPUSH (13:37)
[2020-07-19 13:38] LABS: MANUAL DIFF FLAG NO
[2020-07-19 13:40] LABS: Basophils Absolute Auto 0.1 X10*3/uL (0.0-0.2); Basophils Percent Auto 0.6 % (0-2); Eosinophils Percent Auto 0.1 % (0-4); Hematocrit 38.9 % (37-47); Hemoglobin 12.9 g/dl (12.0-16.0); Imm Gran Abs Auto 0.05 X10*3/uL (0.00-0.03); Imm Gran Pct Auto 0.4 % (0.0-0.4); Lymphocytes Absolute Auto 1.7 X10*3/uL (1.2-4.9); Lymphocytes Percent Auto 14.3 % (20-40); Mean Corpuscular HGB Conc 33.2 g/dl (31.0-35.0); Mean Corpuscular Volume 84.6 fL (80-98); Mean Platelet Volume 11.3 fL (9.4-12.3); Monocytes Absolute Auto 0.5 X10*3/uL (0.1-1.2); Monocytes Percent Auto 4.1 % (2-11); Neutrophils Absolute Auto 9.5 X10*3/uL (2.0-8.3); Neutrophils Percent Auto 80.5 % (45-73); Platelet Count 325 X10*3/uL (160-400); Red Cell Distribution Width 13.3 % (11.0-16.0); White Blood Count 11.9 X10*3/uL (4.8-10.8)
[2020-07-19 13:42] LABS: Venous Blood Gas Refer to POC result
[2020-07-19 13:43] LABS: VBG Base Excess 2.9 mmol/L; VBG HCO3 23 mmol/L (22-26); VBG pCO2 26 mmHg; VBG pH 7.56 (7.32-7.43); VBG pO2 43 mmHg
[2020-07-19 13:48] LABS: INTERNATIONAL NORM RATIO 1.2 (0.9-1.1)
[2020-07-19 13:54] LABS: Acetone, serum QL Negative (Negative)
[2020-07-19 13:59] LABS: Lactic Acid 2.5 mmol/L (0.5-2.0)
[2020-07-19 14:00] LABS: COVID-19 Test Negative (Negative)
[2020-07-19 14:12] LABS: Alanine Aminotransferase 27 U/L (0-31); Albumin Level 4.4 g/dL (3.5-5.0); Alkaline Phosphatase 127 U/L (39-117); Anion Gap 21 (12-20); Aspartate Amino Transferase 24 U/L (5-31); Bilirubin Direct 0.4 mg/dL (0.0-0.5); Blood Urea Nitrogen 10 mg/dL (9-16); Calcium 9.8 mg/dL (8.4-10.2); Carbon Dioxide 21 mmol/L (22-29); Chloride 101 mmol/L (96-108); Creatinine Clr Calc Pharmacy 66.1; Estimated Glomerular Filt Rate > 60; Glucose Random 287 mg/dL (60-115); Lipase 7 U/L (8-78); Magnesium 1.8 mg/dL (1.6-2.6); Potassium 3.7 mmol/L (3.3-5.1); Sodium 139 mmol/L (135-145); Total Protein 7.7 g/dL (6.5-8.0); Troponin-I High Sensitivity < 3.5 ng/L (<3.5-17.0)
[2020-07-19] MEDS: Piperacillin Sodium/Tazobactam 3.375 GM in 0.9 % Sodium Chloride 50 ML IV (15:05)
[2020-07-19 15:33] VITALS: RESP 16
[2020-07-19] MEDS: HYDROmorphone HCl 0.5 MG/0.5 ML SYRINGE IVPUSH (15:33)
[2020-07-19] MEDS: Metoclopramide HCl 10 MG/2 ML VIAL IVPUSH (15:33)
[2020-07-19] MEDS: diphenhydrAMINE HCL 50 MG/ML VIAL 25 MG IVPUSH (15:33)
[2020-07-19 15:37] LABS: Reflex Lactate? Lactic Acid Added
[2020-07-19] MEDS: Sodium Phosphate,Mono-Dibasic 133 ML ENEMA PR (16:35)
[2020-07-19 17:49] LABS: ~Lactic Acid-LAB USE ONLY 1.6 mmol/L (0.5-2.0)
== END 2020-07-19 18:02 | disposition home or self-care (01) ==
PROVIDERS: Nurse Practitioner Family; Emergency Provider Emergency Medicine
DX: K59.00 Constipation, unspecified (principal); R10.32 Left lower quadrant pain; F11.99 Opioid use, unspecified with unspecified opioid-induced disorder; C34.92 Malignant neoplasm of unspecified part of left bronchus or lung
CPT/HCPCS: 36415; 74018; 74176; 80048; 80076; 82009; 82947; 83605; 83690; 83735; 84484; 85025; 85610; 87040; 87635; 93005; 96361; 96365; 96375; 99284; 99285; J1170; J1200; J2270; J2405; J2543; J2765

== ENCOUNTER 2020-07-20 15:32 | Inpatient (IN) | payer OTHER, SELFPAY ==
--- NOTE | ~2020-07-20 | XR_ITS ---
EXAMINATION: XR ABDOMEN KUB CLINICAL INDICATION: Nausea and vomiting COMPARISON: KUB yesterday TECHNIQUE: AP view of the abdomen. FINDINGS: The contrast previously seen in the colon as well as appendix is no longer present. The bowel gas pattern is normal with no evidence of ileus or obstruction. No unusual soft tissue calcifications are noted. The bones are unremarkable. XR/XR KUB IMPRESSION: Unremarkable examination.
--- NOTE | ~2020-07-20 | XR_ITS ---
EXAMINATION: XR CHEST CLINICAL INFORMATION: Shortness of breath COMPARISON: 05/25/2020 TECHNIQUE: Frontal view of the chest was obtained. FINDINGS: Cardiac leads overlie the chest. The lungs are well expanded. There is no focal consolidation, edema, or effusion. Bronchial wall thickening noted. No pneumothorax. The cardiomediastinal silhouette is within normal limits. No acute osseous abnormality. XR/XR chest 1V IMPRESSION: No consolidation. Bronchial wall thickening can be seen with a small airways process such as asthma or atypical/viral infection.
--- NOTE | ~2020-07-20 | CT_ITS ---
EXAMINATION: CT ABDOMEN AND PELVIS WITH CONTRAST CLINICAL INFORMATION: Left-sided abdominal pain. Nausea and vomiting. History of colitis. COMPARISON: CT abdomen pelvis 07/19/2020, 05/28/2020 TECHNIQUE: Multidetector volumetric images were obtained from the superior aspect of the liver through the pubic symphysis following administration 85 mL of Omnipaque 350 intravenous contrast. Sagittal and coronal reformatted images were obtained on the technologist's workstation. Oral contrast: No This CT examination was performed using dose optimization techniques as appropriate, variously including the following: *Automated exposure control *Adjustment of mA and/or kV according to patient size (this includes techniques or standardized protocols for targeted exams where dose is matched to indication/reason for exam; i.e. extremities or head) *Use of iterative reconstruction technique DLP: 469 mGy-cm FINDINGS: LUNG BASES: The visualized lung bases are unremarkable. LIVER, GALLBLADDER, AND BILIARY TREE: Diffuse low attenuation of liver parenchyma due to fatty change. No focal liver lesion or intrahepatic bile duct dilatation. Status post cholecystectomy. PANCREAS: Pancreas is atrophic. No inflammation or pancreatic mass. No pancreatic duct dilatation. SPLEEN: Unremarkable. ADRENAL GLANDS: Unremarkable. KIDNEYS AND URETERS: The kidneys are normal in size, shape, and attenuation. No hydronephrosis, hydroureter, or calculi seen. No perinephric stranding. BLADDER: Unremarkable. GASTROINTESTINAL TRACT: There are a few scattered diverticula of the colon. There is no diverticulitis. There is no bowel wall thickening /edema. There is no bowel obstruction. There is a small volume of stool in the colon. The appendix is nonvisualized . There is no inflammation the mesentery. The small bowel loops are unremarkable. The stomach is normal. There is no hiatal hernia. ABDOMINAL WALL: No significant hernia is appreciated. LYMPH NODES: Normal. VASCULAR: Unremarkable. PELVIC VISCERA: Uterus is anteverted. No adnexal abnormality. OSSEOUS STRUCTURES: Unremarkable. CT/CT abdomen pelvis w con IMPRESSION: No acute abnormality CT scan abdomen pelvis. No acute abnormality of the bowel. Diffuse fatty change of liver. Status post cholecystectomy.
[2020-07-20 15:55] VITALS: BP 145/80; BP 174/76; PULSE 72; PULSE 84; RESP 16; TEMP 37.2; O2SAT 98; BMI 27.3
[2020-07-20] MEDS: LORazepam 1 MG TABLET 2 MG PO (16:14)
--- NOTE | 2020-07-20 16:30 | ED.ABDPAIN ---
HPI - Abdominal Pain General Chief Complaint: Abdominal Pain Stated Complaint: ABD PAIN Time Seen by Provider: 07/20/20 16:04 Source: patient and EMS Mode of arrival: EMS Limitations: no limitations History of Present Illness HPI narrative: 55 y/o female with history fibromyalgia with chronic pain, metastatic lung cancer s/p radiation on chemotherapy, DM on insulin (often non-compliant), hx colitis, adrenal insufficiency who presents to the ED wtih left sided abdominal pain, nausea, vomiting and diarrhea. She was seen here in the ER yesterday for persistent vomiting. Unable to get a CT scan because of a recent UGI series done on 07/13 with residual barium left in the colon. Ultimately patient was treated with fleet enema and had large BM with improvement in symptoms. She was discharged home with enema and bowel regimen. She states she woke up this morning with recurrent pain, vomiting and diarrhea. She denies fever, chills, blood in her stool or vomitus, no urinary symptoms. MD elicited complaint: abdominal pain Pertinent past history: constipation and other (colitis ) Onset (ago): day(s) (1) Pain Consistency: constant Location: LUQ and LLQ Severity: severe Quality: cramping and stabbing Radiation: none Migration to: no migration Exacerbating factors: eating Relieving factors: nothing Context: recent surgery/procedure (recent UGI series) and history of similar episodes Associated symptoms: nausea, vomiting and diarrhea Related Data Patient : No Home Medications Medication Instructions Recorded Confirmed alprazolam 1 mg PO TID PRN 12/17/19 07/19/20 clonidine HCl 0.2 mg PO BEDTIME PRN 12/17/19 07/19/20 hydroxyzine pamoate 50 mg PO Q8H PRN 12/17/19 07/19/20 levetiracetam 500 mg PO BID 12/17/19 07/19/20 mesalamine 1,600 mg PO TID 12/17/19 07/19/20 nivolumab 240 mg/24 mL intravenous 240 mg IV Q2W 03/08/20 07/19/20 solution venlafaxine 150 mg 150 mg PO DAILY 03/08/20 07/19/20 capsule,extended release 24 hr zolpidem 10 mg tablet 10 mg PO BEDTIME PRN 03/08/20 07/19/20 bupropion HCl 150 mg PO BID 05/27/20 07/19/20 gabapentin 300 mg PO BID PRN 05/27/20 07/19/20 amlodipine 1 tab PO DAILY 07/19/20 07/19/20 Previous Rx's Medication Instructions Recorded ondansetron HCl [Zofran] 8 mg PO Q8H PRN #50 tab 05/12/20 Cat VelaoStar U-300 Insulin 300 20 unit SUBCUT BEDTIME 30 Days 06/17/20 unit/mL (1.5 mL) subcutaneous pen #4.5 ml NS insulin aspart U-100 100 unit/mL 5 unit SUBCUT TID 30 Days #15 ml 06/17/20 (3 mL) subcutaneous pen FreeStyle Lancets 28 gauge #120 ea NS 07/01/20 docusate sodium [Colace] 100 mg PO BID #30 cap 07/19/20 Allergies Allergy/AdvReac Type Severity Reaction Status Date / Time acetaminophen [Tylenol] AdvReac Unknown Abdominal Verified 07/15/20 10:16 Pain ibuprofen AdvReac Unknown Abdominal Verified 07/15/20 10:16 Pain senna AdvReac Unknown Headache Verified 07/15/20 10:16 Review of Systems Review of Systems Constitutional: No Fever, No Chills ENT/Mouth: No sore throat, No Rhinorrhea, No Swallowing Difficulty Eyes: No Eye Pain, No Swelling, No Redness Cardiovascular: No Chest Pain, No SOB, No Orthopnea, No Edema Respiratory: No Cough, No Sputum, No Wheezing, No dyspnea Gastrointestinal: + Nausea, + Vomiting, + Diarrhea, + abdominal Pain, No Hematochezia, No Melena Genitourinary: No Dysuria, No Urinary Frequency, No Hematuria Musculoskeletal: No joint pain, No Myalgias Skin: No Skin Lesions, No rash Neuro: No Weakness, No Numbness, No Dizziness, No Headache Psych: No Anxiety/Panic, No Depression Heme/Lymph: No Bruising, No Lymphadenopathy Endocrine: No Polyuria, No Polydipsia Physical Exam Vital Signs: Vital Signs: Last Vital Signs Temp 98.9 F 07/20/20 15:55 Pulse 97 07/20/20 19:56 Resp 16 07/20/20 19:56 BP 150/92 H 07/20/20 19:56 Pulse Ox 100 07/20/20 19:56 Oxygen Flow Rate 2 07/20/20 15:55 Body Mass Index 27.3 Course Course Course Narrative: 55 y/o female with multiple medical comorbidities presenting back to the ER with recurrent left sided abdominal pain, nausea and vomiting. She was seen here yesterday for the same but d/c'ed home after improvement in symptoms after large BM. Will plan to repeat labs, KUB (she still has barium in her colon multiple days after UGI series), need to r/o obstruction and colitis. Reevaluation(s) Reevaluation #1: Labs showing WBC 17.5K. KUB without any more barium, no evidence of obstruction. Now that barium has passed will proceed with CT scan for further investigation of her pain. Reevaluation #2: CT scan is unremarkable. She is not tolerating PO meds, spitting them out saying it is burning her stomach (even SL Zofran). MDM - Abdominal Pain Lab Data Result diagrams: 07/20/20 17:38 07/20/20 17:38 Labs: Lab Results 07/20/20 07/20/20 07/20/20 Range/Units 17:38 17:38 17:38 WBC 17.8 H (4.8-10.8) X10*3/uL RBC 4.78 (4.20-5.50) X10*6/uL Hgb 13.5 (12.0-16.0) g/dl Hct 40.5 (37-47) % MCV 84.7 (80-98) fL MCH 28.2 (27.0-33.0) pg MCHC 33.3 (31.0-35.0) g/dl RDW 13.7 (11.0-16.0) % Plt Count 306 (160-400) X10*3/uL MPV 11.3 (9.4-12.3) fL Immature Gran % (Auto) 0.6 H (0.0-0.4) % Neut % (Auto) 85.2 H (45-73) % Lymph % (Auto) 11.0 L (20-40) % Wilkin % (Auto) 2.9 (2-11) % Eos % (Auto) 0.1 (0-4) % Baso % (Auto) 0.2 (0-2) % Lymph # (Auto) 2.0 (1.2-4.9) X10*3/uL Wilkin # (Auto) 0.5 (0.1-1.2) X10*3/uL Eos # (Auto) 0.0 (0.0-0.4) X10*3/uL Baso # (Auto) 0.0 (0.0-0.2) X10*3/uL Abs Immat Gran (auto) 0.10 H (0.00-0.03) X10*3/uL Absolute Neuts (auto) 15.1 H (2.0-8.3) X10*3/uL Absolute Nucleated RBC 0.000 (0.0-0.012) X10*3/uL Nucleated RBC % (auto) 0.0 (0.0-0.2) /100WBC Hold Blue Top SEE NOTE Sodium 143 (135-145) mmol/L Potassium 3.0 L (3.3-5.1) mmol/L Chloride 105 (96-108) mmol/L Carbon Dioxide 22 (22-29) mmol/L Anion Gap 19 (12-20) BUN 9 (9-16) mg/dL Creatinine 0.91 (0.5-1.4) mg/dL Estim Creat Clear Calc 65.5 Estimated GFR > 60 Random Glucose 270 H (60-115) mg/dL Lactic Acid (0.5-2.0) mmol/L Calcium 9.8 (8.4-10.2) mg/dL Magnesium 2.0 (1.6-2.6) mg/dL Total Bilirubin 0.9 (0.0-1.0) mg/dL Direct Bilirubin 0.4 (0.0-0.5) mg/dL AST 13 D (5-31) U/L ALT 19 (0-31) U/L Alkaline Phosphatase 114 (39-117) U/L Total Protein 7.8 (6.5-8.0) g/dL Albumin 4.5 (3.5-5.0) g/dL Lipase 5 L (8-78) U/L 07/20/20 Range/Units 17:38 WBC (4.8-10.8) X10*3/uL RBC (4.20-5.50) X10*6/uL Hgb (12.0-16.0) g/dl Hct (37-47) % MCV (80-98) fL MCH (27.0-33.0) pg MCHC (31.0-35.0) g/dl RDW (11.0-16.0) % Plt Count (160-400) X10*3/uL MPV (9.4-12.3) fL Immature Gran % (Auto) (0.0-0.4) % Neut % (Auto) (45-73) % Lymph % (Auto) (20-40) % Wilkin % (Auto) (2-11) % Eos % (Auto) (0-4) % Baso % (Auto) (0-2) % Lymph # (Auto) (1.2-4.9) X10*3/uL Wilkin # (Auto) (0.1-1.2) X10*3/uL Eos # (Auto) (0.0-0.4) X10*3/uL Baso # (Auto) (0.0-0.2) X10*3/uL Abs Immat Gran (auto) (0.00-0.03) X10*3/uL Absolute Neuts (auto) (2.0-8.3) X10*3/uL Absolute Nucleated RBC (0.0-0.012) X10*3/uL Nucleated RBC % (auto) (0.0-0.2) /100WBC Hold Blue Top Sodium (135-145) mmol/L Potassium (3.3-5.1) mmol/L Chloride (96-108) mmol/L Carbon Dioxide (22-29) mmol/L Anion Gap (12-20) BUN (9-16) mg/dL Creatinine (0.5-1.4) mg/dL Estim Creat Clear Calc Estimated GFR Random Glucose (60-115) mg/dL Lactic Acid 1.5 (0.5-2.0) mmol/L Calcium (8.4-10.2) mg/dL Magnesium (1.6-2.6) mg/dL Total Bilirubin (0.0-1.0) mg/dL Direct Bilirubin (0.0-0.5) mg/dL AST (5-31) U/L ALT (0-31) U/L Alkaline Phosphatase (39-117) U/L Total Protein (6.5-8.0) g/dL Albumin (3.5-5.0) g/dL Lipase (8-78) U/L Discharge Plan Discharge Prescriptions: No Action (DME) lancets [FreeStyle Lancets] 28 gauge misc See Rx Instructions .MEDSUPPLY Qty: 120 RF: 7 bupropion HCl 150 mg tablet sustained-release 12 hr 150 mg PO BID RF: 0 gabapentin 300 mg capsule 300 mg PO BID PRN (Reason: Pain) RF: 0 clonidine HCl 0.1 mg tablet 0.2 mg PO BEDTIME PRN (Reason: Anxiety) RF: 0 alprazolam 1 mg tablet 1 mg PO TID PRN (Reason: Anxiety) RF: 0 hydroxyzine pamoate 50 mg capsule 50 mg PO Q8H PRN (Reason: Anxiety) RF: 0 levetiracetam 500 mg tablet 500 mg PO BID RF: 0 mesalamine 800 mg tablet,delayed release (DR/EC) 1,600 mg PO TID RF: 0 ondansetron HCl [Zofran] 4 mg Tablet 8 mg PO Q8H PRN (Reason: Nausea And Vomiting) Qty: 50 RF: 6 amlodipine 5 mg tablet 1 tab PO DAILY RF: 0 docusate sodium [Colace] 100 mg capsule 100 mg PO BID Qty: 30 RF: 0 Opdivo 240 mg/24 mL solution 240 mg IV Q2W RF: 0 venlafaxine 150 mg capsule,extended release 24hr 150 mg PO DAILY RF: 0 zolpidem 10 mg tablet 10 mg PO BEDTIME PRN (Reason: Sleep) RF: 0 Toujeo SoloStar U-300 Insulin 300 unit/mL (1.5 mL) insulin pen 20 unit subcut BEDTIME 30 Days Qty: 4.5 RF: 6 insulin aspart U-100 [Novolog Flexpen U-100 Insulin] 100 unit/mL (3 mL) insulin pen 5 unit subcut TID 30 Days Qty: 15 RF: 4 PMFSH Past Medical History Medical History Adrenal insufficiency due to cancer therapy Aftercare following left shoulder joint replacement surgery Arthritis Asthma Colitis COPD (chronic obstructive pulmonary disease) Depression Diabetes type 2, uncontrolled Fibromyalgia History of lung cancer Hypothyroidism Multinodular goiter Newly diagnosed diabetes Non-small cell carcinoma of left lung, stage 4 Opioid abuse Opioid use disorder Pancreatitis (~02/2018) Radiation-induced esophagitis Subclinical hyperthyroidism Surgical History History of History of cholecystectomy (~12/02/08) History of endometrial ablation (~07/25/06) History of esophageal dilatation (~02/24/18) History of esophagogastroduodenoscopy (EGD) (~09/04/19) Hx of blepharoplasty (~2018) Hx of shoulder surgery (~2014) Family History Family History Father Pancreatic cancer Mother Diabetes Brother Diabetes Sister Diabetes Social History Social History Household Members: Family Housing: House Alcohol intake: never Smoking Status: Light tobacco smoker Tobacco Type: Cigarette Years Smoked: 45 Second Hand Smoke Exposure: No Advance Directives: Yes Advance Directives on File: Yes Advance Directives Date on File: 05/12/20 Patient : No service: No Current occupational status: unemployed and disabled
[2020-07-20 17:28] VITALS: BP 185/107; PULSE 72; RESP 16; O2SAT 95
[2020-07-20 17:45] LABS: MANUAL DIFF FLAG NO
[2020-07-20 17:47] LABS: Basophils Percent Auto 0.2 % (0-2); Eosinophils Percent Auto 0.1 % (0-4); Hematocrit 40.5 % (37-47); Hemoglobin 13.5 g/dl (12.0-16.0); Imm Gran Pct Auto 0.6 % (0.0-0.4); Mean Corpuscular HGB Conc 33.3 g/dl (31.0-35.0); Mean Corpuscular Hemoglobin 28.2 pg (27.0-33.0); Mean Corpuscular Volume 84.7 fL (80-98); Mean Platelet Volume 11.3 fL (9.4-12.3); Monocytes Absolute Auto 0.5 X10*3/uL (0.1-1.2); Monocytes Percent Auto 2.9 % (2-11); Neutrophils Absolute Auto 15.1 X10*3/uL (2.0-8.3); Neutrophils Percent Auto 85.2 % (45-73); Platelet Count 306 X10*3/uL (160-400); Red Blood Count 4.78 X10*6/uL (4.20-5.50); Red Cell Distribution Width 13.7 % (11.0-16.0); White Blood Count 17.8 X10*3/uL (4.8-10.8)
[2020-07-20 18:05] LABS: Lactic Acid 1.5 mmol/L (0.5-2.0)
[2020-07-20 18:08] VITALS: RESP 16
[2020-07-20] MEDS: 0.9 % Sodium Chloride 1,000 ML 999 ML IVCONT (18:08)
[2020-07-20] MEDS: HYDROmorphone HCl 0.5 MG/0.5 ML SYRINGE IVPUSH (18:08)
[2020-07-20] MEDS: ondansetron HCL 4 MG/2 ML VIAL IVPUSH (18:08)
[2020-07-20 18:11] LABS: Alanine Aminotransferase 19 U/L (0-31); Albumin Level 4.5 g/dL (3.5-5.0); Alkaline Phosphatase 114 U/L (39-117); Anion Gap 19 (12-20); Aspartate Amino Transferase 13 U/L (5-31); Bilirubin Direct 0.4 mg/dL (0.0-0.5); Bilirubin Total 0.9 mg/dL (0.0-1.0); Blood Urea Nitrogen 9 mg/dL (9-16); Calcium 9.8 mg/dL (8.4-10.2); Carbon Dioxide 22 mmol/L (22-29); Chloride 105 mmol/L (96-108); Creatinine Clr Calc Pharmacy 65.5; Estimated Glomerular Filt Rate > 60; Glucose Random 270 mg/dL (60-115); Lipase 5 U/L (8-78); Sodium 143 mmol/L (135-145); Total Protein 7.8 g/dL (6.5-8.0)
[2020-07-20] MEDS: iohexoL 350 MG/ML 100 ML INFUS..BTL IV (19:40)
[2020-07-20 19:56] VITALS: BP 150/92; PULSE 97; RESP 16; O2SAT 100
--- NOTE | 2020-07-21 00:35 | P.HPHOSP_ITS ---
History of Present Illness Date of Service: 07/21/20 Chief Complaint: Nausea/Vomiting 55-year-old female with a past medical history of diabetes, anxiety, depression, COPD, multinodular goiter, hypothyroidism, history of lung cancer status post radiotherapy/chemotherapy, history of radiation esophagitis, history of colitis, history of atrial insufficiency presented to the hospital with a chief complaint of nausea vomiting and poor oral intake. Patient mentions that over the past few days she has been having nausea vomiting and abdominal pain/epigastric pain; unable to tolerate p.o.. Patient presented to the ER yesterday where she had a KUB done and had a fecal disimpaction done; patient improved symptomatically and subsequently sent home. Patient mentions that after she went home she still continued to have nausea and vomiting and unable to tolerate p.o. hence decided to come to the hospital for further evaluation. Also complained of epigastric discomfort. Denies any chest pain. Denies any numbness tingling. Denies any diarrhea. Mentioned that she is unable to take her medications. Review of all other systems is negative except mentioned above ER course: Per ER team patient received multiple doses of pain medications and anti nausea medications but no significant improvement. CT abdomen was done which showed no acute intra-abdominal pathology. As the patient failed oral challenge admitted for further management. [facility] Medical History Adrenal insufficiency due to cancer therapy Aftercare following left shoulder joint replacement surgery Arthritis Asthma Colitis COPD (chronic obstructive pulmonary disease) Depression Diabetes type 2, uncontrolled Fibromyalgia History of lung cancer Hypothyroidism Multinodular goiter Newly diagnosed diabetes Non-small cell carcinoma of left lung, stage 4 Opioid abuse Opioid use disorder Pancreatitis (~02/2018) Radiation-induced esophagitis Subclinical hyperthyroidism Family History Father Pancreatic cancer Mother Diabetes Brother Diabetes Sister Diabetes Surgical History History of History of cholecystectomy (~12/02/08) History of endometrial ablation (~07/25/06) History of esophageal dilatation (~02/24/18) History of esophagogastroduodenoscopy (EGD) (~09/04/19) Hx of blepharoplasty (~2018) Hx of shoulder surgery (~2014) Social History Household Members: Family Housing: House Do you presently have visiting nurse or other home services: Yes ([facility], 24) Alcohol intake: never Smoking Status: Light tobacco smoker Tobacco Type: Cigarette Years Smoked: 45 Second Hand Smoke Exposure: No Advance Directives Date on File: 05/12/20 service: No Current occupational status: disabled Meds Allergies Allergy/AdvReac Type Severity Reaction Status Date / Time acetaminophen [Tylenol] AdvReac Unknown Abdominal Verified 07/15/20 10:16 Pain ibuprofen AdvReac Unknown Abdominal Verified 07/15/20 10:16 Pain senna AdvReac Unknown Headache Verified 07/15/20 10:16 Active Medications: Current Medications Generic Name Dose Route Start Last Admin Trade Name Freq PRN Reason Stop Dose Admin Acetaminophen 650 mg 07/21/20 00:29 Acetaminophen Supp 650 Mg Supp.Rect MD Q6H PRN Pain, Mild (Pain Scale 1-3) Famotidine 20 mg 07/21/20 09:00 Famotidine/Pf 20 Mg/2 Ml Vial IVPUSH BID SHABANA Hydromorphone HCl 0.5 mg 07/21/20 00:34 Hydromorphone Hcl 0.5 Mg/0.5 Ml Syringe IVPUSH Q6H PRN Pain, Severe (Pain Scale 7-10) Potassium Chloride/Sodium Chloride 40 meq in 1,000 mls @ 100 mls/hr 07/21/20 00:30 IVCONT .Q10H SHABANA Dextrose/Sodium Chloride 1,000 mls @ 100 mls/hr 07/21/20 00:30 D51/2ns IVCONT .Q10H SHABANA Ondansetron HCl 4 mg 07/21/20 00:34 Ondansetron Hcl 4 Mg/2 Ml Vial IVPUSH Q8H PRN Nausea and Vomiting Oxycodone HCl 5 mg 07/21/20 00:29 Oxycodone Hcl Immed Release 5 Mg Tablet PO Q6H PRN Pain, Severe (Pain Scale 7-10) Sodium Chloride 3 ml 07/21/20 08:00 0.9 % Sodium Chloride Flush 3 Ml Syringe IVFLUSH QSHIFT [facility] Home Medications Medication Instructions Recorded Confirmed Last Taken Type alprazolam 1 mg PO TID PRN 12/17/19 07/21/20 05/26/20 History clonidine HCl 0.2 mg PO BEDTIME PRN 12/17/19 07/21/20 07/18/20 History hydroxyzine pamoate 50 mg PO Q8H PRN 12/17/19 07/21/20 05/26/20 History levetiracetam 500 mg PO BID 12/17/19 07/21/20 07/18/20 History mesalamine 1,600 mg PO TID 12/17/19 07/21/20 07/18/20 History venlafaxine 150 mg 150 mg PO DAILY 03/08/20 07/21/20 07/18/20 History capsule,extended release 24 hr zolpidem 10 mg tablet 10 mg PO BEDTIME PRN 03/08/20 07/21/20 05/26/20 History bupropion HCl 300 mg PO DAILY 05/27/20 07/21/20 07/18/20 History Tresiba FlexTouch U-200 20 unit SUBCUT BEDTIME 07/21/20 Unknown History gabapentin 1 cap PO TID PRN 07/21/20 07/21/20 Unknown History insulin aspart U-100 [Novolog 5 unit SUBCUT TIDAC 07/21/20 Unknown History Flexpen U-100 Insulin] Physical Exam Vital Signs and Narrative: Vital Signs: Last Vital Signs Temp 98.9 F 07/20/20 15:55 Pulse 97 07/20/20 19:56 Resp 16 07/20/20 19:56 BP 150/92 H 07/20/20 19:56 Pulse Ox 100 07/20/20 19:56 Oxygen Flow Rate 2 07/20/20 15:55 Body Mass Index 27.3 Gen: Appears be in no acute distress HEENT: NCAT, Moist mucosa. Pulmonary: Vesicular breath sounds, fair air entry CVS: Normal S1-S2 Abdomen: BS+, Soft, mildly tender diffusely, no guarding no rigidity Extremities: Warm well perfused Neuro: Alert and awake. Results Labs CBC and Chem 7: 07/22/20 05:47 07/23/20 04:33 Labs: Laboratory Results - last 24 hr 07/20/20 07/20/20 07/20/20 17:38 17:38 17:38 MCV 84.7 MCH 28.2 MCHC 33.3 RDW 13.7 Plt Count 306 MPV 11.3 Immature Gran % (Auto) 0.6 H Neut % (Auto) 85.2 H Lymph % (Auto) 11.0 L Collin % (Auto) 2.9 Eos % (Auto) 0.1 Baso % (Auto) 0.2 Lymph # (Auto) 2.0 Collin # (Auto) 0.5 Eos # (Auto) 0.0 Baso # (Auto) 0.0 Abs Immat Gran (auto) 0.10 H Absolute Neuts (auto) 15.1 H Absolute Nucleated RBC 0.000 Nucleated RBC % (auto) 0.0 Hold Blue Top SEE NOTE Anion Gap 19 Estim Creat Clear Calc 65.5 Estimated GFR > 60 Random Glucose 270 H Lactic Acid Calcium 9.8 Magnesium 2.0 Total Bilirubin 0.9 Direct Bilirubin 0.4 AST 13 D ALT 19 Alkaline Phosphatase 114 Total Protein 7.8 Albumin 4.5 Lipase 5 L 07/20/20 17:38 MCV MCH MCHC RDW Plt Count MPV Immature Gran % (Auto) Neut % (Auto) Lymph % (Auto) Collin % (Auto) Eos % (Auto) Baso % (Auto) Lymph # (Auto) Collin # (Auto) Eos # (Auto) Baso # (Auto) Abs Immat Gran (auto) Absolute Neuts (auto) Absolute Nucleated RBC Nucleated RBC % (auto) Hold Blue Top Anion Gap Estim Creat Clear Calc Estimated GFR Random Glucose Lactic Acid 1.5 Calcium Magnesium Total Bilirubin Direct Bilirubin AST ALT Alkaline Phosphatase Total Protein Albumin Lipase Imaging Radiologist's Impressions: Impressions KUB X-Ray 07/20/20 18:04 IMPRESSION: Unremarkable examination. Abdomen/Pelvis CT 07/20/20 18:20 IMPRESSION: No acute abnormality CT scan abdomen pelvis. No acute abnormality of the bowel. Diffuse fatty change of liver. Status post cholecystectomy. Assessment and Plan (1) Nausea & vomiting: Status: Resolved 55-year-old female with a past medical history of anxiety, depression, fibromyalgia, history of lung cancer status post chemotherapy, radiotherapy; history of radiation esophagitis; multinodular goiter, hypothyroidism, diabetes, history of adrenal insufficiency, COPD/asthma on home oxygen, arthritis, history of colitis presented to the hospital with a chief complaint of nausea vomiting and epigastric discomfort. Nausea/vomiting/epigastric discomfort: Patient received multiple doses of pain medications in the ER with no significant improvement. Failed oral challenge. Continue IV fluids Clear liquid diets-advanced diet as tolerated Elena p.r.n. Will consult Gastroenterology for further recommendations Supportive care History of diabetes: Insulin sliding scale COPD: stable; cxr pending For all other chronic conditions, home medications will be continued once med rec is done DVT prophylaxis: SCD boots Code status: Full code
[2020-07-21] MEDS: Dextrose 5 % and 0.45 % NaCl 1,000 ML 100 ML IVCONT (01:00)
[2020-07-21] MEDS: HYDROmorphone HCl 0.5 MG/0.5 ML SYRINGE IVPUSH ×4 (01:07→19:20)
[2020-07-21] MEDS: Metoclopramide HCl 10 MG/2 ML VIAL IVPUSH (01:07)
[2020-07-21 02:02] LABS: COVID-19 Test Negative (Negative)
--- NOTE | 2020-07-21 03:04 | PC.NURSE ---
HOSPITALIST IN ROOM FOR EVAL. PT AWAITING FOR TRANSFER TO FLOOR. PT IN NAD,
[2020-07-21] MEDS: KCl 40 mEq in 0.9 % Sodium Chl 40 MEQ/1,000 ML IV.SOLN 100 MEQ IVCONT ×3 (03:45→19:20)
[2020-07-21 04:00] VITALS: BP 167/96; PULSE 73; RESP 18; TEMP 37; O2SAT 100
[2020-07-21 05:53] VITALS: BMI 27.3
[2020-07-21] MEDS: ondansetron HCL 4 MG/2 ML VIAL IVPUSH ×2 (06:23→17:19)
[2020-07-21] MEDS: oxyCODONE HCl Immed Release 5 MG TABLET PO ×2 (06:23→23:32)
[2020-07-21 07:19] LABS: MANUAL DIFF FLAG NO
[2020-07-21 07:26] LABS: Basophils Absolute Auto 0.1 X10*3/uL (0.0-0.2); Basophils Percent Auto 0.3 % (0-2); Hematocrit 36.2 % (37-47); Hemoglobin 11.8 g/dl (12.0-16.0); Imm Gran Abs Auto 0.12 X10*3/uL (0.00-0.03); Imm Gran Pct Auto 0.8 % (0.0-0.4); Lymphocytes Absolute Auto 2.2 X10*3/uL (1.2-4.9); Lymphocytes Percent Auto 14.1 % (20-40); Mean Corpuscular HGB Conc 32.6 g/dl (31.0-35.0); Mean Corpuscular Hemoglobin 28.3 pg (27.0-33.0); Mean Corpuscular Volume 86.8 fL (80-98); Monocytes Absolute Auto 0.9 X10*3/uL (0.1-1.2); Monocytes Percent Auto 5.9 % (2-11); Neutrophils Absolute Auto 12.3 X10*3/uL (2.0-8.3); Neutrophils Percent Auto 78.9 % (45-73); Platelet Count 232 X10*3/uL (160-400); Red Blood Count 4.17 X10*6/uL (4.20-5.50); Red Cell Distribution Width 13.8 % (11.0-16.0); White Blood Count 15.6 X10*3/uL (4.8-10.8)
[2020-07-21 07:47] VITALS: BP 161/81; PULSE 73; RESP 20; TEMP 36.9; O2SAT 100
[2020-07-21 08:11] LABS: Anion Gap 15 (12-20); Blood Urea Nitrogen 9 mg/dL (9-16); Carbon Dioxide 23 mmol/L (22-29); Chloride 107 mmol/L (96-108); Creatinine Clr Calc Pharmacy 73.6; Estimated Glomerular Filt Rate > 60; Glucose Random 265 mg/dL (60-115); Potassium 3.1 mmol/L (3.3-5.1); Sodium 142 mmol/L (135-145)
[2020-07-21 08:38] LABS: Calcium 8.9 mg/dL (8.4-10.2)
--- NOTE | 2020-07-21 10:24 | MHC.CM.PN ---
Addendum entered by Destiney Joaquin 07/21/20 11:02: IMM addressed with patient and placed in chart. Original Note: CM met with patient at the bedside who reports she amb with a cane and lives alone. 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 Patient does have a HCP Ze[facility] [phone] and a copy is on file. Discussed discharge plan, new referral made to [facility]. Patient's dtr will provide transportation. CM will continue to follow patient for discharge needs.
--- NOTE | 2020-07-21 11:08 | P.PNIM_ITS ---
Subjective Subjective Date of Service: 07/21/20 Interval History: seen and examined reports continual dysphagia / odynophagia, even to liquids reports epigastric pain reports nausea, zofran helping denies any abdominal pain other than above mentioned ROS General - no fevers or chills Cardiovascular - no chest pain Respiratory - no shortness of breath or cough Abdominal- +epigastric pain, +n, no v Physical Exam Vital Signs: Vital Signs: Last Vital Signs Temp 98.5 F 07/21/20 07:47 Pulse 73 07/21/20 07:47 Resp 20 07/21/20 07:47 BP 161/81 H 07/21/20 07:47 Pulse Ox 100 07/21/20 07:47 Oxygen Flow Rate 2 07/20/20 15:55 Body Mass Index 27.3 Const: Other: General - no acute distress, appears comfortable Cardiovascular - regular rate and rhythm, S1-S2 Lungs - normal respiratory effort, clear to auscultation bilaterally, no wheezing Abdomen - soft, mild tenderness with volunatary guarding Extremities - no edema bilaterally Neuro - awake and alert, no focal deficits Objective Data Current Medications Generic Name Dose Route Start Last Admin Trade Name Freq PRN Reason Stop Dose Admin Acetaminophen 650 mg 07/21/20 00:29 Acetaminophen Supp 650 Mg Supp.Rect NH Q6H PRN Pain, Mild (Pain Scale 1-3) Hydromorphone HCl 0.5 mg 07/21/20 00:34 07/21/20 03:42 Hydromorphone Hcl 0.5 Mg/0.5 Ml Syringe IVPUSH 0.5 mg Q6H PRN Administration Pain, Severe (Pain Scale 7-10) Potassium Chloride/Sodium Chloride 40 meq in 1,000 mls @ 100 mls/hr 07/21/20 00:30 07/21/20 03:45 IVCONT 100 mls/hr .Q10H SHABANA Administration Ondansetron HCl 4 mg 07/21/20 00:34 07/21/20 06:23 Ondansetron Hcl 4 Mg/2 Ml Vial IVPUSH 4 mg Q8H PRN Administration Nausea and Vomiting Oxycodone HCl 5 mg 07/21/20 00:29 07/21/20 06:23 Oxycodone Hcl Immed Release 5 Mg Tablet PO 5 mg Q6H PRN Administration Pain, Severe (Pain Scale 7-10) Pantoprazole Sodium 40 mg 07/21/20 16:30 Pantoprazole Sodium 40 Mg/10 Ml Vial IVPUSH BID@0630,1630 [facility] Pharmacy Consult 1 each 07/21/20 01:15 Consult Rx Perform Med Rec MISCELLANE ONCE PRN Consult order Pharmacy Consult 1 each 07/21/20 08:34 Consult Rx Perform Med Rec MISCELLANE ONCE PRN Consult order Sodium Chloride 3 ml 07/21/20 08:00 07/21/20 08:08 0.9 % Sodium Chloride Flush 3 Ml Syringe IVFLUSH Not Given QSHIFT [facility] Sucralfate 1 gm 07/21/20 11:30 Sucralfate Oral Suspension 1 Gm/10 Ml Oral.Susp PO QIDACHS [facility] Labs CBC & Chem 7: 07/21/20 06:55 07/21/20 06:55 Assessment and Plan (1) Diabetes type 2, uncontrolled: Status: Acute Assessment and Plan: This is a 55 yo F with a history of Lunga Ca -- s/p radiation and currently getting chemo at [facility] who presented to the hospital on 07/19/2020 with complaints of abdominal pain. At that time, she was noted to have fecal impaction which was manually disimpacted. Her symptoms resolved and so she was discharged home. She returned within 24 hours on 07/20/2020 with complaints of intractable nausea/vomiting/dysphagia/odynophagia. Despite multiple IV ant iemetics and IV pain medications her symptoms did not resolve and so she was admitted. 1. Odynophagia/dysphagia, possible gastritis/esophagitis Patient had an outpatient upper GI series which did not show any strictures in the esophagus but there was comments of the barium pill getting stuck in her esophagus. Given her history of prior radiation will involve Gastroenterology. Will change IV Pepcid to IV Protonix Start Carafate Continue clear liquid diet 2. Dehydration with electrolyte imbalances Hypokalemia and hypophosphatemia Replete with IV and oral phos/k; keep IVF with potassium check and replete Mag as tolerated 3. Uncontrolled DM POC QIDAC + Sliding scale 4. Chronic Pain minimized narcotics as much as possible on IV dilaudid at this time, will try to taper as quick as possible Med Rec pending -- continue remainder of meds once completed. Full Code DVT pptx, Lovenox
[2020-07-21 11:30] LABS: Glucose, Whole Blood 190 mg/dL (60-115)
[2020-07-21] MEDS: Sucralfate Oral Suspension 1 GM/10 ML ORAL.SUSP PO ×2 (11:35→17:19)
[2020-07-21] MEDS: Sodium,Potassium Phosphates POWD.PACK 1 PACKET PO ×3 (11:35→21:25)
[2020-07-21 11:38] VITALS: BP 164/92; PULSE 71; RESP 20; TEMP 37.1; O2SAT 100
[2020-07-21] MEDS: Enoxaparin Sodium 40 MG/0.4 ML SYRINGE SUBCUT (11:41)
[2020-07-21] MEDS: levETIRAcetam 500 MG TABLET PO ×2 (13:59→21:25)
[2020-07-21 16:00] VITALS: BP 158/86; PULSE 80; RESP 19; TEMP 35.9; O2SAT 99
[2020-07-21 16:26] LABS: Glucose, Whole Blood 220 mg/dL (60-115)
[2020-07-21] MEDS: Pantoprazole Sodium 40 MG/10 ML VIAL IVPUSH (17:19)
[2020-07-21] MEDS: Mesalamine 400 MG CAP.DRTAB. 1600 MG PO (17:19)
[2020-07-21] MEDS: 0.9 % Sodium Chloride Flush 3 ML SYRINGE IVFLUSH (17:20)
[2020-07-21] MEDS: Insulin Lispro 100 UNIT/ML 3 ML VIAL SUBCUT (17:20)
--- NOTE | 2020-07-21 19:06 | P.EN_ITS ---
Event Note Date of Service: 07/21/20 Event Note: Imp: Abdominal pain and dysphagia. Patient is well known to me. Re cent studies have included negative labs, nonrevealing UGI/Barium swallow, and negative abdominal CT scan. EGD in 08/2019 was essentially nonrevealing, although did show some mild gastric retention. I doubt she has PUD or other significant GI pathology. She may be having intestinal spasm. Rec: Although my suspicion for UGI tract pathology is low, I would recommend an EGD with possible balloon dilation, with MAC, on 07/22/2020. I think knowing of a negative exam will help the medical team to better be able to treat and reassure her, and to hopefully allow for easier resolution of her symptoms and facilitate discharge. Full consent has been obtained from her for this, including risks of bleeding and perforation. Patient understood and was very comfortable with this plan. Continue supportive care in the meantime. Thanks
--- NOTE | 2020-07-21 19:06 | MHC.SHP ---
Pre-Procedural Eval Section A The patient is an INPATIENT: Yes Changes since office visit: No Cold of Flu in the past 2 weeks, No New Medical Problems, No Changes in Medication and No Patient answered all questions The History & Physical has been completed within 30 days and I have reviewed it.: Yes Section B Chief Complaint: Nausea/Vomiting Allergies: Allergies Allergy/AdvReac Type Severity Reaction Status Date / Time acetaminophen [Tylenol] AdvReac Unknown Abdominal Verified 07/15/20 10:16 Pain ibuprofen AdvReac Unknown Abdominal Verified 07/15/20 10:16 Pain senna AdvReac Unknown Headache Verified 07/15/20 10:16 Plan I have reviewed the history and physical and performed a pertinent physical examination on my patient. No changes have occurred unless specified.
[2020-07-21 19:51] VITALS: BP 185/91; PULSE 70; RESP 19; TEMP 35.9; O2SAT 100
[2020-07-21 20:18] LABS: Glucose, Whole Blood 132 mg/dL (60-115)
[2020-07-22] VITALS (14 sets, daily range): BP systolic 108–182; BP diastolic 66–97; PULSE 67–94; RESP 12–20; TEMP 35.5–36.9; O2SAT 97–100; BMI 26.5
[2020-07-22] MEDS: HYDROmorphone HCl 0.5 MG/0.5 ML SYRINGE IVPUSH ×3 (01:47→21:04)
--- NOTE | 2020-07-22 02:31 | CONS_ITS ---
DATE OF SERVICE: 07/21/2020 REASON FOR CONSULTATION: Abdominal pain and dysphagia. HISTORY OF PRESENT ILLNESS: The patient is a 55-year-old female, well known to me with an underlying history of a radiation-induced esophageal stricture, underlying colitis, and presenting now with ongoing abdominal pain and some dysphagia. The patient's last upper endoscopy with me in August of 2019 revealed that the previous proximal esophageal stricture had completely resolved and there was no evidence of any narrowing at that time and no dilatation was performed. The remainder of the esophagus appeared normal. There was a mild amount of gastric retention noted. Subsequent to that, she did have a nuclear medicine gastric emptying study, which was described as normal. She also had a modified barium swallow with speech and swallow evaluation team, which revealed a normal-appearing esophagus without any sign of esophageal obstruction, although the report describes a probable component of some oropharyngeal dysphagia, but without aspiration. The patient has been having at least 1 or 2 weeks of ongoing mid abdominal pain and some anorexia. She describes some vomiting. She has also been constipated. She denies any hematemesis, coffee-grounds emesis, melena, nor hematochezia. On July 13, she underwent an outpatient barium swallow and upper GI series. These revealed a normal appearing esophagus without any sign of obstruction nor stricture. The Barium tablet did get held up in the mid-chest area and eventually cleared with the swallowing of some water. The remainder of the upper GI tract including the stomach and duodenum appeared normal without any sign of gastric outlet obstruction. Some mild reflux was noted. Her workup over the past 24 hours includes an abdominal CAT scan that describes an atrophic pancreas without any sign of pancreatitis nor mass. She is status post cholecystectomy. There was no diverticulitis nor bowel obstruction. There was no sign of any colitis. Overall, the CAT scan appeared basically normal. MEDICATIONS: On admission included alprazolam, bupropion, clonidine, Colace, gabapentin. Medications in the hospital include acetaminophen, alprazolam, bupropion, Lovenox, metoclopramide, Zofran p.r.n., Effexor, pantoprazole. PAST MEDICAL HISTORY: Lung cancer, treated with previous radiation treatment and chemotherapy. Proximal esophageal stricture in relation to the previous radiation treatment and underwent multiple endoscopies and dilatations beginning in February 2017. The last dilation was in February of 2018, up to a 16.5 mm balloon. She has a history of seizures. Ulcerative colitis. Depression. Anxiety. Panic attacks. COPD. Tachycardia. She does not have any history of IA, diabetes, or stroke. PAST SURGICAL HISTORY: Cholecystectomy, shoulder surgery, tonsillectomy, dental implants. FAMILY HISTORY: Her sister has pancreatic cancer. SOCIAL HISTORY: Smoker. No significant alcohol. She is currently . PHYSICAL EXAMINATION: GENERAL: The patient is a pleasant, alert, comfortable-appearing female. SKIN: Warm and dry. HEENT: Anicteric sclerae. ABDOMEN: Soft. Normal bowel sounds with some upper abdominal tenderness. There is no palpable mass, rebound, or guarding. LABORATORY DATA: White blood cell count 15.6, hemoglobin 11.8, platelets 232,000. PT 14.0 with INR of 1.2. Sodium 140, potassium 3.1, BUN 9, creatinine 0.8. Normal lipid profile. Lipase 5. CAT scan as above. Chest x-ray, no sign of any acute process such as pneumonia nor effusions. IMPRESSION: Given the patient's negative workup both on this admission and recently as an outpatient, as well as previous upper endoscopies, I doubt she has any significant upper GI tract pathology such as ulcer disease or significant gastritis. She may very well be having pain from intestinal spasm. She appears quite stable otherwise with a fairly benign abdomen and no other worrisome findings on the CAT scan or laboratories. Although my suspicion for finding any upper GI tract pathology is low, I suspect an upper endoscopy would be helpful to definitively exclude any pathology and hopefully will be able to offer her reassurance and then allow for discharge. She does have some ongoing dysphagia, but given the recent barium swallow, I doubt she has a recurrent significant stricture, but that could also be assessed at the time of the endoscopy with balloon dilation as needed. The procedure will be done with monitored anesthesia care. Full consent has been obtained from her for this, including risks of bleeding and perforation. In the meantime, I will continue supportive care and IV PPI. The patient understood the plan and was very comfortable with this. Thank you for the consultation. MD SHEREEN Patel/BALTAZAR / [phone] MTDNathalie
[2020-07-22] MEDS: KCl 40 mEq in 0.9 % Sodium Chl 40 MEQ/1,000 ML IV.SOLN 100 MEQ IVCONT (05:16)
[2020-07-22] MEDS: Pantoprazole Sodium 40 MG/10 ML VIAL IVPUSH (06:23)
[2020-07-22 06:32] LABS: Hematocrit 32.9 % (37-47); Hemoglobin 10.6 g/dl (12.0-16.0); Mean Corpuscular HGB Conc 32.2 g/dl (31.0-35.0); Mean Corpuscular Hemoglobin 27.9 pg (27.0-33.0); Mean Corpuscular Volume 86.6 fL (80-98); Mean Platelet Volume 12.2 fL (9.4-12.3); Platelet Count 182 X10*3/uL (160-400); Red Cell Distribution Width 13.2 % (11.0-16.0); White Blood Count 9.5 X10*3/uL (4.8-10.8)
[2020-07-22 07:00] LABS: Magnesium 1.8 mg/dL (1.6-2.6)
[2020-07-22 07:09] LABS: Glucose, Whole Blood 145 mg/dL (60-115)
[2020-07-22 07:29] LABS: Anion Gap 12 (12-20); Blood Urea Nitrogen 7 mg/dL (9-16); Calcium 8.2 mg/dL (8.4-10.2); Carbon Dioxide 22 mmol/L (22-29); Chloride 111 mmol/L (96-108); Creatinine Clr Calc Pharmacy 91.7; Estimated Glomerular Filt Rate > 60; Glucose Random 122 mg/dL (60-115); Potassium 3.6 mmol/L (3.3-5.1); Sodium 141 mmol/L (135-145)
[2020-07-22 09:16] LABS: Phosphorus 1.8 mg/dL (2.7-4.5)
--- NOTE | 2020-07-22 09:28 | P.CONAN_ITS ---
[facility] Active Problems Active Problems: All Active Problems (Updated 07/21/20 @ 06:37 by Mike culp) Nausea & vomiting (Acute) Diabetes type 2, uncontrolled (Acute) Near syncope (Acute) Orthostatic hypotension (Acute) Acute hyperglycemia (Acute) Colitis (Acute) Opioid use disorder (Acute) Fibromyalgia (Acute) UTI (urinary tract infection) (Acute) Multinodular goiter (Acute) Adrenal insufficiency due to cancer therapy (Acute) Newly diagnosed diabetes (Acute) High blood sugar (Acute) Opioid abuse (Acute) Subclinical hyperthyroidism (Acute) Adrenal insufficiency (Acute) Radiation-induced esophagitis (Acute) Non-small cell carcinoma of left lung, stage 4 (Acute) Past Medical History Medical History Adrenal insufficiency due to cancer therapy Aftercare following left shoulder joint replacement surgery Arthritis Asthma Colitis COPD (chronic obstructive pulmonary disease) Depression Diabetes type 2, uncontrolled Fibromyalgia History of lung cancer Hypothyroidism Multinodular goiter Newly diagnosed diabetes Non-small cell carcinoma of left lung, stage 4 Opioid abuse Opioid use disorder Pancreatitis (~02/2018) Radiation-induced esophagitis Subclinical hyperthyroidism Family History Family History Father Pancreatic cancer Mother Diabetes Brother Diabetes Sister Diabetes Surgical History Surgical History History of History of cholecystectomy (~12/02/08) History of endometrial ablation (~07/25/06) History of esophageal dilatation (~02/24/18) History of esophagogastroduodenoscopy (EGD) (~09/04/19) Hx of blepharoplasty (~2018) Hx of shoulder surgery (~2014) Social History Social History Household Members: Family Housing: House Alcohol intake: never Smoking Status: Light tobacco smoker Tobacco Type: Cigarette Years Smoked: 45 Second Hand Smoke Exposure: No Advance Directives Date on File: 05/12/20 service: No Current occupational status: disabled Meds Allergies Allergy/AdvReac Type Severity Reaction Status Date / Time acetaminophen [Tylenol] AdvReac Unknown Abdominal Verified 07/15/20 10:16 Pain ibuprofen AdvReac Unknown Abdominal Verified 07/15/20 10:16 Pain senna AdvReac Unknown Headache Verified 07/15/20 10:16 Active Medications: Current Medications Generic Name Dose Route Start Last Admin Trade Name Freq PRN Reason Stop Dose Admin Acetaminophen 650 mg 07/21/20 00:29 Acetaminophen Supp 650 Mg Supp.Rect [place] Q6H PRN Pain, Mild (Pain Scale 1-3) Alprazolam 1 mg 07/21/20 12:13 Alprazolam 0.5 Mg Tablet PO TID PRN Anxiety Bupropion HCl 300 mg 07/22/20 09:00 Bupropion Hcl Xl 300 Mg Tab.Er.24h PO DAILY SHABANA Clonidine HCl 0.2 mg 07/21/20 12:32 Clonidine Hcl 0.2 Mg Tablet PO BEDTIME PRN Anxiety Protocol Docusate Sodium 100 mg 07/21/20 21:00 07/21/20 21:26 Docusate Sodium 100 Mg Capsule PO Not Given BID SHABANA Enoxaparin Sodium 40 mg 07/21/20 11:30 07/21/20 11:41 Enoxaparin Sodium 40 Mg/0.4 Ml Syringe SUBCUT 40 mg Q24H SHABANA Administration Gabapentin 300 mg 07/21/20 12:13 Gabapentin 300 Mg Capsule PO TID PRN Pain Hydromorphone HCl 0.5 mg 07/21/20 00:34 07/22/20 01:47 Hydromorphone Hcl 0.5 Mg/0.5 Ml Syringe IVPUSH 0.5 mg Q6H PRN Administration Pain, Severe (Pain Scale 7-10) Hydroxyzine HCl 50 mg 07/21/20 12:13 Hydroxyzine Hcl 50 Mg Tablet PO Q8H PRN Anxiety Potassium Chloride/Sodium Chloride 40 meq in 1,000 mls @ 100 mls/hr 07/21/20 00:30 07/22/20 05:16 IVCONT 100 mls/hr .Q10H SHABANA Administration Insulin Human Lispro 0 unit 07/21/20 16:30 07/22/20 09:10 Insulin Lispro 100 Unit/Ml 3 Ml Vial SUBCUT Not Given QIDACHS [facility] Protocol Levetiracetam 500 mg 07/21/20 12:15 07/21/20 21:25 Levetiracetam 500 Mg Tablet PO 500 mg BID SHABANA Administration Mesalamine 1,600 mg 07/21/20 15:00 07/21/20 21:26 Mesalamine 400 Mg Cap.Drtab. PO Not Given TID [facility] Ondansetron HCl 4 mg 07/21/20 00:34 07/21/20 17:19 Ondansetron Hcl 4 Mg/2 Ml Vial IVPUSH 4 mg Q8H PRN Administration Nausea and Vomiting Oxycodone HCl 5 mg 07/21/20 00:29 07/21/20 23:32 Oxycodone Hcl Immed Release 5 Mg Tablet PO 5 mg Q6H PRN Administration Pain, Severe (Pain Scale 7-10) Pantoprazole Sodium 40 mg 07/21/20 16:30 07/22/20 06:23 Pantoprazole Sodium 40 Mg/10 Ml Vial IVPUSH 40 mg BID@0630,4460 [facility] Administration Pharmacy Consult 1 each 07/21/20 01:15 Consult Rx Perform Med Rec MISCELLANE ONCE PRN Consult order Pharmacy Consult 1 each 07/21/20 08:34 Consult Rx Perform Med Rec MISCELLANE ONCE PRN Consult order Potassium Phos/Sodium Phos 1 packet 07/21/20 13:00 07/21/20 21:25 Sodium,Potassium Phosphates Powd.Pack PO 1 packet QID [facility] Administration Sodium Chloride 3 ml 07/21/20 08:00 07/22/20 09:10 0.9 % Sodium Chloride Flush 3 Ml Syringe IVFLUSH Not Given QSHIFT [facility] Venlafaxine HCl 150 mg 07/22/20 09:00 Venlafaxine Hcl Er 150 Mg Cap.Er.24h PO DAILY [facility] Zolpidem Tartrate 5 mg 07/21/20 12:13 Zolpidem Tartrate 5 Mg Tablet PO BEDTIME PRN Sleep Home Medications Medication Instructions Recorded Confirmed Last Taken Type alprazolam 1 mg PO TID PRN 12/17/19 07/21/20 05/26/20 History clonidine HCl 0.2 mg PO BEDTIME PRN 12/17/19 07/21/20 07/18/20 History hydroxyzine pamoate 50 mg PO Q8H PRN 12/17/19 07/21/20 05/26/20 History levetiracetam 500 mg PO BID 12/17/19 07/21/20 07/18/20 History mesalamine 1,600 mg PO TID 12/17/19 07/21/20 07/18/20 History venlafaxine 150 mg 150 mg PO DAILY 03/08/20 07/21/20 07/18/20 History capsule,extended release 24 hr zolpidem 10 mg tablet 10 mg PO BEDTIME PRN 03/08/20 07/21/20 05/26/20 History bupropion HCl 300 mg PO DAILY 05/27/20 07/21/20 07/18/20 History gabapentin 1 cap PO TID PRN 07/21/20 07/21/20 Unknown History insulin aspart U-100 [Novolog 5 unit SUBCUT TIDAC 07/21/20 Unknown History Flexpen U-100 Insulin] insulin degludec [Tresiba 20 unit SUBCUT BEDTIME 07/21/20 Unknown History FlexTouch U-200] Exam Exam Date and Time: July 22, 2020927 Height,Weight and Vital Signs: Height 5 ft 3 in Weight 70 kg Last Vital Signs Temp 97.5 F 07/22/20 08:00 Pulse 94 07/22/20 08:00 Resp 20 07/22/20 08:00 BP 153/77 H 07/22/20 08:00 Pulse Ox 98 07/22/20 08:00 Oxygen Flow Rate 2 07/20/20 15:55 Pertinent Lab Results Pertinent Lab Results: Laboratory Tests 07/20/20 07/20/20 07/20/20 17:38 17:38 17:38 WBC 17.8 H RBC 4.78 Hgb 13.5 Hct 40.5 MCV 84.7 MCH 28.2 MCHC 33.3 RDW 13.7 Plt Count 306 MPV 11.3 Immature Gran % (Auto) 0.6 H Neut % (Auto) 85.2 H Lymph % (Auto) 11.0 L Cannon % (Auto) 2.9 Eos % (Auto) 0.1 Baso % (Auto) 0.2 Lymph # (Auto) 2.0 Cannon # (Auto) 0.5 Eos # (Auto) 0.0 Baso # (Auto) 0.0 Abs Immat Gran (auto) 0.10 H Absolute Neuts (auto) 15.1 H Absolute Nucleated RBC 0.000 Nucleated RBC % (auto) 0.0 Hold Blue Top SEE NOTE Sodium 143 Potassium 3.0 L Chloride 105 Carbon Dioxide 22 Anion Gap 19 BUN 9 Creatinine 0.91 Estim Creat Clear Calc 65.5 Estimated GFR > 60 POC Glucose Random Glucose 270 H Lactic Acid Calcium 9.8 Phosphorus Magnesium 2.0 Total Bilirubin 0.9 Direct Bilirubin 0.4 AST 13 D ALT 19 Alkaline Phosphatase 114 Total Protein 7.8 Albumin 4.5 Lipase 5 L COVID-19 ([facility]) COVID-19 Clin Com 07/20/20 07/21/20 07/21/20 17:38 01:40 06:55 WBC 15.6 H RBC 4.17 L Hgb 11.8 L Hct 36.2 L MCV 86.8 MCH 28.3 MCHC 32.6 RDW 13.8 Plt Count 232 MPV 12.0 Immature Gran % (Auto) 0.8 H Neut % (Auto) 78.9 H Lymph % (Auto) 14.1 L Cannon % (Auto) 5.9 Eos % (Auto) 0.0 Baso % (Auto) 0.3 Lymph # (Auto) 2.2 Cannon # (Auto) 0.9 Eos # (Auto) 0.0 Baso # (Auto) 0.1 Abs Immat Gran (auto) 0.12 H Absolute Neuts (auto) 12.3 H Absolute Nucleated RBC 0.000 Nucleated RBC % (auto) 0.0 Hold Blue Top Sodium Potassium Chloride Carbon Dioxide Anion Gap BUN Creatinine Estim Creat Clear Calc Estimated GFR POC Glucose Random Glucose Lactic Acid 1.5 Calcium Phosphorus Magnesium Total Bilirubin Direct Bilirubin AST ALT Alkaline Phosphatase Total Protein Albumin Lipase COVID-19 ([facility]) Negative COVID-19 Clin Com See Note 07/21/20 07/21/20 07/21/20 06:55 11:11 16:02 WBC RBC Hgb Hct MCV MCH MCHC RDW Plt Count MPV Immature Gran % (Auto) Neut % (Auto) Lymph % (Auto) Cannon % (Auto) Eos % (Auto) Baso % (Auto) Lymph # (Auto) Cannon # (Auto) Eos # (Auto) Baso # (Auto) Abs Immat Gran (auto) Absolute Neuts (auto) Absolute Nucleated RBC Nucleated RBC % (auto) Hold Blue Top Sodium 142 Potassium 3.1 L Chloride 107 Carbon Dioxide 23 Anion Gap 15 BUN 9 Creatinine 0.81 Estim Creat Clear Calc 73.6 Estimated GFR > 60 POC Glucose 190 H 220 H Random Glucose 265 H Lactic Acid Calcium 8.9 D Phosphorus 2.0 L Magnesium Total Bilirubin Direct Bilirubin AST ALT Alkaline Phosphatase Total Protein Albumin Lipase COVID-19 ([facility]) COVID-19 [facility] Com 07/21/20 07/22/20 07/22/20 19:53 05:47 05:47 WBC RBC Hgb Hct MCV MCH MCHC RDW Plt Count MPV Immature Gran % (Auto) Neut % (Auto) Lymph % (Auto) Cannon % (Auto) Eos % (Auto) Baso % (Auto) Lymph # (Auto) Cannon # (Auto) Eos # (Auto) Baso # (Auto) Abs Immat Gran (auto) Absolute Neuts (auto) Absolute Nucleated RBC Nucleated RBC % (auto) Hold Blue Top Sodium 141 Potassium 3.6 Chloride 111 H Carbon Dioxide 22 Anion Gap 12 BUN 7 L Creatinine 0.65 Estim Creat Clear Calc 91.7 Estimated GFR > 60 POC Glucose 132 H Random Glucose 122 H D Lactic Acid Calcium 8.2 L D Phosphorus 1.8 L Magnesium 1.8 Total Bilirubin Direct Bilirubin AST ALT Alkaline Phosphatase Total Protein Albumin Lipase COVID-19 ([facility]) COVID-19 [facility] Com 07/22/20 07/22/20 05:47 07:05 WBC 9.5 RBC 3.80 L Hgb 10.6 L Hct 32.9 L MCV 86.6 MCH 27.9 MCHC 32.2 RDW 13.2 Plt Count 182 MPV 12.2 Immature Gran % (Auto) Neut % (Auto) Lymph % (Auto) Cannon % (Auto) Eos % (Auto) Baso % (Auto) Lymph # (Auto) Cannon # (Auto) Eos # (Auto) Baso # (Auto) Abs Immat Gran (auto) Absolute Neuts (auto) Absolute Nucleated RBC 0.000 Nucleated RBC % (auto) 0.0 Hold Blue Top Sodium Potassium Chloride Carbon Dioxide Anion Gap BUN Creatinine Estim Creat Clear Calc Estimated GFR POC Glucose 145 H Random Glucose Lactic Acid Calcium Phosphorus Magnesium Total Bilirubin Direct Bilirubin AST ALT Alkaline Phosphatase Total Protein Albumin Lipase COVID-19 ([facility]) COVID-19 Clin Com Airway Heart: RRR
[2020-07-22] MEDS: Lactated Ringers 1,000 ML 20 ML IVCONT (10:17)
--- NOTE | 2020-07-22 10:51 | P.CONAN_ITS ---
[facility] Active Problems Active Problems: All Active Problems (Updated 07/21/20 @ 06:37 by Mike culp) Nausea & vomiting (Acute) Diabetes type 2, uncontrolled (Acute) Near syncope (Acute) Orthostatic hypotension (Acute) Acute hyperglycemia (Acute) Colitis (Acute) Opioid use disorder (Acute) Fibromyalgia (Acute) UTI (urinary tract infection) (Acute) Multinodular goiter (Acute) Adrenal insufficiency due to cancer therapy (Acute) Newly diagnosed diabetes (Acute) High blood sugar (Acute) Opioid abuse (Acute) Subclinical hyperthyroidism (Acute) Adrenal insufficiency (Acute) Radiation-induced esophagitis (Acute) Non-small cell carcinoma of left lung, stage 4 (Acute) Past Medical History Medical History Adrenal insufficiency due to cancer therapy Aftercare following left shoulder joint replacement surgery Arthritis Asthma Colitis COPD (chronic obstructive pulmonary disease) Depression Diabetes type 2, uncontrolled Fibromyalgia History of lung cancer Hypothyroidism Multinodular goiter Newly diagnosed diabetes Non-small cell carcinoma of left lung, stage 4 Opioid abuse Opioid use disorder Pancreatitis (~02/2018) Radiation-induced esophagitis Subclinical hyperthyroidism Family History Family History Father Pancreatic cancer Mother Diabetes Brother Diabetes Sister Diabetes Surgical History Surgical History History of History of cholecystectomy (~12/02/08) History of endometrial ablation (~07/25/06) History of esophageal dilatation (~02/24/18) History of esophagogastroduodenoscopy (EGD) (~09/04/19) Hx of blepharoplasty (~2018) Hx of shoulder surgery (~2014) Social History Social History Household Members: Family Housing: House Alcohol intake: never Smoking Status: Light tobacco smoker Tobacco Type: Cigarette Years Smoked: 45 Second Hand Smoke Exposure: No Advance Directives Date on File: 05/12/20 service: No Current occupational status: disabled Meds Allergies Allergy/AdvReac Type Severity Reaction Status Date / Time acetaminophen [Tylenol] AdvReac Unknown Abdominal Verified 07/15/20 10:16 Pain ibuprofen AdvReac Unknown Abdominal Verified 07/15/20 10:16 Pain senna AdvReac Unknown Headache Verified 07/15/20 10:16 Active Medications: Current Medications Generic Name Dose Route Start Last Admin Trade Name Freq PRN Reason Stop Dose Admin Acetaminophen 650 mg 07/21/20 00:29 Acetaminophen Supp 650 Mg Supp.Rect PA Q6H PRN Pain, Mild (Pain Scale 1-3) Alprazolam 1 mg 07/21/20 12:13 Alprazolam 0.5 Mg Tablet PO TID PRN Anxiety Bupropion HCl 300 mg 07/22/20 09:00 Bupropion Hcl Xl 300 Mg Tab.Er.24h PO DAILY [facility] Clonidine HCl 0.2 mg 07/21/20 12:32 Clonidine Hcl 0.2 Mg Tablet PO BEDTIME PRN Anxiety Protocol Docusate Sodium 100 mg 07/21/20 21:00 07/21/20 21:26 Docusate Sodium 100 Mg Capsule PO Not Given BID [facility] Enoxaparin Sodium 40 mg 07/21/20 11:30 07/21/20 11:41 Enoxaparin Sodium 40 Mg/0.4 Ml Syringe SUBCUT 40 mg Q24H [facility] Administration Gabapentin 300 mg 07/21/20 12:13 Gabapentin 300 Mg Capsule PO TID PRN Pain Hydromorphone HCl 0.5 mg 07/21/20 00:34 07/22/20 01:47 Hydromorphone Hcl 0.5 Mg/0.5 Ml Syringe IVPUSH 0.5 mg Q6H PRN Administration Pain, Severe (Pain Scale 7-10) Hydroxyzine HCl 50 mg 07/21/20 12:13 Hydroxyzine Hcl 50 Mg Tablet PO Q8H PRN Anxiety Potassium Chloride/Sodium Chloride 40 meq in 1,000 mls @ 100 mls/hr 07/21/20 00:30 07/22/20 05:16 IVCONT 100 mls/hr .Q10H [facility]NA Administration Lactated Ringer's 1,000 mls @ 20 mls/hr 07/22/20 10:15 07/22/20 10:17 Lr IVCONT 20 mls/hr .Q24H [facility]NA Administration Insulin Human Lispro 0 unit 07/21/20 16:30 07/22/20 09:10 Insulin Lispro 100 Unit/Ml 3 Ml Vial SUBCUT Not Given QIDACHS [facility] Protocol Levetiracetam 500 mg 07/21/20 12:15 07/21/20 21:25 Levetiracetam 500 Mg Tablet PO 500 mg BID [facility] Administration Mesalamine 1,600 mg 07/21/20 15:00 07/21/20 21:26 Mesalamine 400 Mg Cap.Drtab. PO Not Given TID [facility] Ondansetron HCl 4 mg 07/21/20 00:34 07/21/20 17:19 Ondansetron Hcl 4 Mg/2 Ml Vial IVPUSH 4 mg Q8H PRN Administration Nausea and Vomiting Oxycodone HCl 5 mg 07/21/20 00:29 07/21/20 23:32 Oxycodone Hcl Immed Release 5 Mg Tablet PO 5 mg Q6H PRN Administration Pain, Severe (Pain Scale 7-10) Pantoprazole Sodium 40 mg 07/21/20 16:30 07/22/20 06:23 Pantoprazole Sodium 40 Mg/10 Ml Vial IVPUSH 40 mg BID@0630,4110 [facility] Administration Pharmacy Consult 1 each 07/21/20 01:15 Consult Rx Perform Med Rec MISCELLANE ONCE PRN Consult order Pharmacy Consult 1 each 07/21/20 08:34 Consult Rx Perform Med Rec MISCELLANE ONCE PRN Consult order Potassium Phos/Sodium Phos 1 packet 07/21/20 13:00 07/21/20 21:25 Sodium,Potassium Phosphates Powd.Pack PO 1 packet QID [facility] Administration Sodium Chloride 3 ml 07/21/20 08:00 07/22/20 09:10 0.9 % Sodium Chloride Flush 3 Ml Syringe IVFLUSH Not Given QSHIFT [facility] Venlafaxine HCl 150 mg 07/22/20 09:00 Venlafaxine Hcl Er 150 Mg Cap.Er.24h PO DAILY [facility] Zolpidem Tartrate 5 mg 07/21/20 12:13 Zolpidem Tartrate 5 Mg Tablet PO BEDTIME PRN Sleep Home Medications Medication Instructions Recorded Confirmed Last Taken Type alprazolam 1 mg PO TID PRN 12/17/19 07/21/20 05/26/20 History clonidine HCl 0.2 mg PO BEDTIME PRN 12/17/19 07/21/20 07/18/20 History hydroxyzine pamoate 50 mg PO Q8H PRN 12/17/19 07/21/2005/26/21 History levetiracetam 500 mg PO BID 12/17/19 07/21/20 07/18/20 History mesalamine 1,600 mg PO TID 12/17/19 07/21/20 07/18/20 History venlafaxine 150 mg 150 mg PO DAILY 03/08/20 07/21/20 07/18/20 History capsule,extended release 24 hr zolpidem 10 mg tablet 10 mg PO BEDTIME PRN 03/08/20 07/21/20 05/26/20 History bupropion HCl 300 mg PO DAILY 05/27/20 07/21/20 07/18/20 History gabapentin 1 cap PO TID PRN 07/21/20 07/21/20 Unknown History insulin aspart U-100 [Novolog 5 unit SUBCUT TIDAC 07/21/20 Unknown History Flexpen U-100 Insulin] insulin degludec [Tresiba 20 unit SUBCUT BEDTIME 07/21/20 Unknown History FlexTouch U-200] Exam Exam Date and Time: July 22, 2020 1051 Height,Weight and Vital Signs: Height 5 ft 3 in Weight 68.039 kg Last Vital Signs Temp 96 F L 07/22/20 09:40 Pulse 78 07/22/20 09:40 Resp 16 07/22/20 09:40 BP 154/79 H 07/22/20 09:40 Pulse Ox 100 07/22/20 09:40 Oxygen Flow Rate 2 07/20/20 15:55 Pertinent Lab Results Pertinent Lab Results: Laboratory Tests 07/20/20 07/20/20 07/20/20 17:38 17:38 17:38 WBC 17.8 H RBC 4.78 Hgb 13.5 Hct 40.5 MCV 84.7 MCH 28.2 MCHC 33.3 RDW 13.7 Plt Count 306 MPV 11.3 Immature Gran % (Auto) 0.6 H Neut % (Auto) 85.2 H Lymph % (Auto) 11.0 L [place] % (Auto) 2.9 Eos % (Auto) 0.1 Baso % (Auto) 0.2 Lymph # (Auto) 2.0 [place] # (Auto) 0.5 Eos # (Auto) 0.0 Baso # (Auto) 0.0 Abs Immat Gran (auto) 0.10 H Absolute Neuts (auto) 15.1 H Absolute Nucleated RBC 0.000 Nucleated RBC % (auto) 0.0 Hold Blue Top SEE NOTE Sodium 143 Potassium 3.0 L Chloride 105 Carbon Dioxide 22 Anion Gap 19 BUN 9 Creatinine 0.91 Estim Creat Clear Calc 65.5 Estimated GFR > 60 POC Glucose Random Glucose 270 H Lactic Acid Calcium 9.8 Phosphorus Magnesium 2.0 Total Bilirubin 0.9 Direct Bilirubin 0.4 AST 13 D ALT 19 Alkaline Phosphatase 114 Total Protein 7.8 Albumin 4.5 Lipase 5 L COVID-19 (OZIEL) COVID-19 Clin Com 07/20/20 07/21/20 07/21/20 17:38 01:40 06:55 WBC 15.6 H RBC 4.17 L Hgb 11.8 L Hct 36.2 L MCV 86.8 MCH 28.3 MCHC 32.6 RDW 13.8 Plt Count 232 MPV 12.0 Immature Gran % (Auto) 0.8 H Neut % (Auto) 78.9 H Lymph % (Auto) 14.1 L [place] % (Auto) 5.9 Eos % (Auto) 0.0 Baso % (Auto) 0.3 Lymph # (Auto) 2.2 [place] # (Auto) 0.9 Eos # (Auto) 0.0 Baso # (Auto) 0.1 Abs Immat Gran (auto) 0.12 H Absolute Neuts (auto) 12.3 H Absolute Nucleated RBC 0.000 Nucleated RBC % (auto) 0.0 Hold Blue Top Sodium Potassium Chloride Carbon Dioxide Anion Gap BUN Creatinine Estim Creat Clear Calc Estimated GFR POC Glucose Random Glucose Lactic Acid 1.5 Calcium Phosphorus Magnesium Total Bilirubin Direct Bilirubin AST ALT Alkaline Phosphatase Total Protein Albumin Lipase COVID-19 (OZIEL) Negative COVID-19 Clin Com See Note 07/21/20 07/21/20 07/21/20 06:55 11:11 16:02 WBC RBC Hgb Hct MCV MCH MCHC RDW Plt Count MPV Immature Gran % (Auto) Neut % (Auto) Lymph % (Auto) [place] % (Auto) Eos % (Auto) Baso % (Auto) Lymph # (Auto) [place] # (Auto) Eos # (Auto) Baso # (Auto) Abs Immat Gran (auto) Absolute Neuts (auto) Absolute Nucleated RBC Nucleated RBC % (auto) Hold Blue Top Sodium 142 Potassium 3.1 L Chloride 107 Carbon Dioxide 23 Anion Gap 15 BUN 9 Creatinine 0.81 Estim Creat Clear Calc 73.6 Estimated GFR > 60 POC Glucose 190 H 220 H Random Glucose 265 H Lactic Acid Calcium 8.9 D Phosphorus 2.0 L Magnesium Total Bilirubin Direct Bilirubin AST ALT Alkaline Phosphatase Total Protein Albumin Lipase COVID-19 (OZIEL) COVID-19 addwish 07/21/20 07/22/20 07/22/20 19:53 05:47 05:47 WBC RBC Hgb Hct MCV MCH MCHC RDW Plt Count MPV Immature Gran % (Auto) Neut % (Auto) Lymph % (Auto) [place] % (Auto) Eos % (Auto) Baso % (Auto) Lymph # (Auto) [place] # (Auto) Eos # (Auto) Baso # (Auto) Abs Immat Gran (auto) Absolute Neuts (auto) Absolute Nucleated RBC Nucleated RBC % (auto) Hold Blue Top Sodium 141 Potassium 3.6 Chloride 111 H Carbon Dioxide 22 Anion Gap 12 BUN 7 L Creatinine 0.65 Estim Creat Clear Calc 91.7 Estimated GFR > 60 POC Glucose 132 H Random Glucose 122 H D Lactic Acid Calcium 8.2 L D Phosphorus 1.8 L Magnesium 1.8 Total Bilirubin Direct Bilirubin AST ALT Alkaline Phosphatase Total Protein Albumin Lipase COVID-19 (OZIEL) COVID-19 addwish 07/22/20 07/22/20 05:47 07:05 WBC 9.5 RBC 3.80 L Hgb 10.6 L Hct 32.9 L MCV 86.6 MCH 27.9 MCHC 32.2 RDW 13.2 Plt Count 182 MPV 12.2 Immature Gran % (Auto) Neut % (Auto) Lymph % (Auto) [place] % (Auto) Eos % (Auto) Baso % (Auto) Lymph # (Auto) [place] # (Auto) Eos # (Auto) Baso # (Auto) Abs Immat Gran (auto) Absolute Neuts (auto) Absolute Nucleated RBC 0.000 Nucleated RBC % (auto) 0.0 Hold Blue Top Sodium Potassium Chloride Carbon Dioxide Anion Gap BUN Creatinine Estim Creat Clear Calc Estimated GFR POC Glucose 145 H Random Glucose Lactic Acid Calcium Phosphorus Magnesium Total Bilirubin Direct Bilirubin AST ALT Alkaline Phosphatase Total Protein Albumin Lipase COVID-19 (OZIEL) COVIDRestore [employer] Allografts
--- NOTE | 2020-07-22 10:56 | P.BOP_ITS ---
Brief Operative Note Date of Service: 07/22/20 Pre-op diagnosis: Abdominal pain Post-op diagnosis: other (Minimal gastritis, small hiatal hernia, area of previous proximal esophageal stricture was patent) Procedure: EGD with biopsies Surgeon: Wood Murphy Anesthesia: MAC Was an Claim Processing Specialist used for this Procedure?: No Estimated blood loss (mL): 2.0 Pathology: other (A. Gastric antrum) Condition: stable Disposition: PACU
--- NOTE | 2020-07-22 10:56 | HO.POSTANES ---
Post Anesthesia Evaluation Post Anesthesia Evaluation Vital Signs: Vital Signs Temp Pulse Resp BP Pulse Ox 07/22/20 09:40 96 F L 78 16 154/79 H 100 07/22/20 08:00 97.5 F 94 20 153/77 H 98 07/22/20 04:00 97.8 F 84 16 168/85 H 98 07/22/20 02:54 18 07/22/20 01:47 18 07/22/20 00:32 18 07/22/20 00:00 98.4 F 71 16 182/87 H 98 Anesthesia: Monitored Mental Status: Awake Pain Control: Satisfactory Nausea/Vomiting: None Hydration: Adequate Anesthesia-Related Issues: No Anes. Related Issues
--- NOTE | 2020-07-22 10:58 | PM.EVENT ---
Event Note Date of Service: 07/22/20 Event Note: EGD with biopsy-Full note dictated Findings: 1. Minimal gastritis-antrum biopsied x 3 2. Small hiatal hernia 3. Area of proximal esophagus at approx. 25cm with some scarring and a small diverticulum at the site of her previous stricture and XRT. The site was very patent and allowed easy passage of the scope. There appeared to be good motility at this area as well. No dilation was performed. Rec: Check path. Advance to soft/low residue/diabetic diet. Continue oral PPI. Add standing dose of dicyclomine AC and HS to see if that can give her some relief of the her abdominal discomfort. She can be discharged today from my standpoint. D/W patient. Thanks
--- NOTE | 2020-07-22 11:21 | HO.PM.IMPN ---
Subjective Subjective Date of Service: 07/22/20 Interval History: seen and examined this afternoon post EGD feels tired states she ate some jello after the procedure. informed her of the EGD results again (no stricture) and reassured her that she would be safe to eat solids ROS General - no fevers or chills Cardiovascular - no chest pain Respiratory - no shortness of breath or cough Abdominal- no abdominal pain, nausea, vomiting, diarrhea Physical Exam Vital Signs: Vital Signs: Last Vital Signs Temp 97.3 F 07/22/20 10:50 Pulse 70 07/22/20 11:05 Resp 16 07/22/20 11:05 BP 160/94 H 07/22/20 11:05 Pulse Ox 97 07/22/20 11:05 Oxygen Flow Rate 2 07/20/20 15:55 Body Mass Index 26.5 Const: Other: General - no acute distress, appears comfortable Cardiovascular - regular rate and rhythm, S1-S2 Lungs - normal respiratory effort, clear to auscultation bilaterally, no wheezing Abdomen - soft, mild tenderness with volunatary guarding Extremities - no edema bilaterally Neuro - awake and alert, no focal deficits Objective Data Current Medications Generic Name Dose Route Start Last Admin Trade Name Freq PRN Reason Stop Dose Admin Acetaminophen 650 mg 07/21/20 00:29 Acetaminophen Supp 650 Mg Supp.Rect IA Q6H PRN Pain, Mild (Pain Scale 1-3) Alprazolam 1 mg 07/21/20 12:13 Alprazolam 0.5 Mg Tablet PO TID PRN Anxiety Bupropion HCl 300 mg 07/22/20 09:00 Bupropion Hcl Xl 300 Mg Tab.Er.24h PO DAILY [facility] Clonidine HCl 0.2 mg 07/21/20 12:32 Clonidine Hcl 0.2 Mg Tablet PO BEDTIME PRN Anxiety Protocol Docusate Sodium 100 mg 07/21/20 21:00 07/21/20 21:26 Docusate Sodium 100 Mg Capsule PO Not Given BID [facility]NA Enoxaparin Sodium 40 mg 07/21/20 11:30 07/21/20 11:41 Enoxaparin Sodium 40 Mg/0.4 Ml Syringe SUBCUT 40 mg Q24H SH[facility]NA Administration Gabapentin 300 mg 07/21/20 12:13 Gabapentin 300 Mg Capsule PO TID PRN Pain Hydromorphone HCl 0.5 mg 07/21/20 00:34 07/22/20 01:47 Hydromorphone Hcl 0.5 Mg/0.5 Ml Syringe IVPUSH 0.5 mg Q6H PRN Administration Pain, Severe (Pain Scale 7-10) Hydroxyzine HCl 50 mg 07/21/20 12:13 Hydroxyzine Hcl 50 Mg Tablet PO Q8H PRN Anxiety Potassium Chloride/Sodium Chloride 40 meq in 1,000 mls @ 100 mls/hr 07/21/20 00:30 07/22/20 05:16 IVCONT 100 mls/hr .Q10H [facility]NA Administration Lactated Ringer's 1,000 mls @ 20 mls/hr 07/22/20 10:15 07/22/20 11:00 Lr IVCONT Infused .Q24H [facility]NA Infusion Insulin Human Lispro 0 unit 07/21/20 16:30 07/22/20 09:10 Insulin Lispro 100 Unit/Ml 3 Ml Vial SUBCUT Not Given QIDACHS [facility] Protocol Levetiracetam 500 mg 07/21/20 12:15 07/21/20 21:25 Levetiracetam 500 Mg Tablet PO 500 mg BID [facility] Administration Mesalamine 1,600 mg 07/21/20 15:00 07/21/20 21:26 Mesalamine 400 Mg Cap.Drtab. PO Not Given TID [facility] Ondansetron HCl 4 mg 07/21/20 00:34 07/21/20 17:19 Ondansetron Hcl 4 Mg/2 Ml Vial IVPUSH 4 mg Q8H PRN Administration Nausea and Vomiting Oxycodone HCl 5 mg 07/21/20 00:29 07/21/20 23:32 Oxycodone Hcl Immed Release 5 Mg Tablet PO 5 mg Q6H PRN Administration Pain, Severe (Pain Scale 7-10) Pantoprazole Sodium 40 mg 07/21/20 16:30 07/22/20 06:23 Pantoprazole Sodium 40 Mg/10 Ml Vial IVPUSH 40 mg BID@0630,1630 [facility] Administration Pharmacy Consult 1 each 07/21/20 01:15 Consult Rx Perform Med Rec MISCELLANE ONCE PRN Consult order Pharmacy Consult 1 each 07/21/20 08:34 Consult Rx Perform Med Rec MISCELLANE ONCE PRN Consult order Potassium Phos/Sodium Phos 1 packet 07/21/20 13:00 07/21/20 21:25 Sodium,Potassium Phosphates Powd.Pack PO 1 packet QID [facility] Administration Sodium Chloride 3 ml 07/21/20 08:00 07/22/20 09:10 0.9 % Sodium Chloride Flush 3 Ml Syringe IVFLUSH Not Given QSHIFT [facility] Venlafaxine HCl 150 mg 07/22/20 09:00 Venlafaxine Hcl Er 150 Mg Cap.Er.24h PO DAILY [facility] Zolpidem Tartrate 5 mg 07/21/20 12:13 Zolpidem Tartrate 5 Mg Tablet PO BEDTIME PRN Sleep Labs CBC & Chem 7: 07/22/20 05:47 07/22/20 05:47 Microbiology Microbiology Results: Microbiology 07/20/20 17:38 Blood - Venous Blood Culture - Preliminary No growth after 24 hours. 07/20/20 17:38 Blood - Venous Blood Culture - Preliminary No growth after 24 hours. Assessment and Plan (1) Diabetes type 2, uncontrolled: Status: Acute Assessment and Plan: This is a 55 yo F with a history of Lunga Ca -- s/p radiation and currently getting chemo at [facility] oncology who presented to the hospital on 07/19/2020 with complaints of abdominal pain. At that time, she was noted to have fecal impaction which was manually disimpacted. Her symptoms resolved and so she was discharged home. She returned within 24 hours on 07/20/2020 with complaints of intractable nausea/vomiting/dysphagia/odynophagia. Despite multiple IV antiemetics and IV pain medications her symptoms did not resolve and so she was admitted. 1. Mild Gastritis / Esophageal diverticulum EGD done today, no stricture change PPI to oral taper IV dilaudid to BID today and d/c by tomorrow Dicyclomine 10mg po QIDACHS start solids and if patient tolerating -- discharge by tomorrow. Patient encouraged to take oral by mouth. Suspected some of her symptoms maybe psychological due to fear of pain. 2. Dehydration with electrolyte imbalances HypoK improved continue phos repletement 3. Uncontrolled DM POC QIDAC + Sliding scale 4. Chronic Pain minimized narcotics as much as possible taper IV dialudid continue her chronic meds including mesalamine and keppra Full Code DVT pptx, Lovenox
[2020-07-22] MEDS: Sodium,Potassium Phosphates POWD.PACK 1 PACKET PO ×3 (11:52→20:58)
[2020-07-22 12:00] LABS: Glucose, Whole Blood 150 mg/dL (60-115)
[2020-07-22] MEDS: ALPRAZolam 0.5 MG TABLET 1 MG PO ×2 (12:01→20:58)
--- NOTE | 2020-07-22 12:12 | OP_ITS ---
SURGEON: Wood Murphy MD INDICATIONS: The patient presents for evaluation of abdominal pain and intermittent dysphagia. Full consent has been obtained from her for this, including risks of bleeding and perforation. PREOPERATIVE DIAGNOSIS: POSTOPERATIVE DIAGNOSIS: PROCEDURE PERFORMED: Esophagogastroduodenoscopy with biopsies. ESTIMATED BLOOD LOSS: COMPLICATIONS: ANESTHESIA: Monitored anesthesia care. ASSISTANTS: SPECIMENS: PREOPERATIVE DIAGNOSES: Abdominal pain and dysphagia. POSTOPERATIVE DIAGNOSES: Abdominal pain and dysphagia, minimal gastritis, small hiatal hernia, area of scarring in proximal esophagus consistent with the site of her previous esophageal stricture, but without any sign of residual narrowing. DESCRIPTION OF PROCEDURE: The patient was placed in the left lateral decubitus position. The Olympus video gastroscope was passed in the posterior oropharynx and upper esophagus under direct vision. The scope was passed slowly into the distal esophagus. The gastroesophageal junction appeared at 35 cm. There was no sign of any esophagitis, stricture, nor ulceration. The scope easily entered into the stomach. There was a small hiatal hernia. The scope was advanced to pylorus and the duodenum was cannulated to the descending portion. The duodenum including the bulb appeared normal without mass or ulceration. Scope was withdrawn back in the stomach. The gastric antrum and body had some very minimal areas of erythema, but with good peristalsis. There was no ulceration nor mass. Biopsies were obtained from the antrum. The scope was retroflexed visualizing the proximal stomach carefully, which appeared normal, without mass or ulceration, other than a small area of erythema as well. There were no erosions. The scope was straightened out and withdrawn back into the esophagus. The entire esophagus was carefully inspected. At a level of approximately 25 cm, was the area of some scarring, some slightly decreased vascularity consistent with her radiation, and a small shallow diverticulum. This was all in the area of her previous stricture and previous numerous dilations. However, there was no narrowing today and the scope easily passed this. Therefore, no further dilation was performed. The scope was withdrawn from the patient. She tolerated the procedure well and was returned to the recovery area in stable condition. IMPRESSION: 1. Small hiatal hernia. 2. Minimal gastritis. 3. Resolved proximal esophageal stricture. PLAN: The results of the biopsies will be checked. At this point, her diet will be advanced to a low residue, soft and diabetic diet. She will be switched over to oral PPI twice a day. I think if stable, she could be discharged today. I have written orders for a standing dose of dicyclomine before meals and at bedtime to see if that can help alleviate some of the abdominal discomfort as well. MD SHEREEN Patel/BALTAZAR / [phone]
--- NOTE | 2020-07-22 14:10 | MHC.CM.PN ---
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 [facility] notified no dc today. They are aware that [facility] will follow Pt. CM will continue to follow.
[2020-07-22] MEDS: 0.9 % Sodium Chloride Flush 3 ML SYRINGE IVFLUSH (15:21)
[2020-07-22 16:12] LABS: Glucose, Whole Blood 161 mg/dL (60-115)
[2020-07-22] MEDS: Omeprazole 20 MG CAPSULE.DR PO (16:39)
[2020-07-22] MEDS: Dicyclomine HCl 10 MG CAPSULE PO ×2 (16:39→20:58)
[2020-07-22] MEDS: Insulin Lispro 100 UNIT/ML 3 ML VIAL SUBCUT ×2 (16:41→20:58)
[2020-07-22] MEDS: oxyCODONE HCl Immed Release 5 MG TABLET PO (19:55)
[2020-07-22 20:03] LABS: Glucose, Whole Blood 166 mg/dL (60-115)
[2020-07-22] MEDS: levETIRAcetam 500 MG TABLET PO (20:57)
[2020-07-22] MEDS: cloNIDine HCL 0.2 MG TABLET PO (20:57)
[2020-07-23] MEDS: 0.9 % Sodium Chloride Flush 3 ML SYRINGE IVFLUSH ×2 (00:19→08:18)
[2020-07-23 03:42] VITALS: BP 134/70; PULSE 82; RESP 14; TEMP 36; O2SAT 96
[2020-07-23 05:30] LABS: Anion Gap 9 (12-20); Blood Urea Nitrogen 8 mg/dL (9-16); Calcium 8.5 mg/dL (8.4-10.2); Carbon Dioxide 27 mmol/L (22-29); Chloride 107 mmol/L (96-108); Creatinine Clr Calc Pharmacy 89.2; Estimated Glomerular Filt Rate > 60; Glucose Random 128 mg/dL (60-115); Potassium 3.1 mmol/L (3.3-5.1); Sodium 140 mmol/L (135-145)
[2020-07-23] MEDS: Omeprazole 20 MG CAPSULE.DR PO (06:27)
--- NOTE | 2020-07-23 07:16 | HO.POSTANES ---
Post Anesthesia Evaluation Post Anesthesia Evaluation Vital Signs: Vital Signs Temp Pulse Resp BP Pulse Ox 07/23/20 03:42 96.8 F 82 14 134/70 96 07/22/20 23:34 96.8 F 82 12 108/66 98 07/22/20 19:18 97.5 F 70 20 158/87 H 97 Anesthesia: Monitored Mental Status: Awake Pain Control: Satisfactory Nausea/Vomiting: None Hydration: Adequate Anesthesia-Related Issues: No Anes. Related Issues
[2020-07-23 07:25] LABS: Glucose, Whole Blood 138 mg/dL (60-115)
[2020-07-23 07:47] VITALS: BP 154/71; PULSE 67; RESP 18; TEMP 36.9; O2SAT 92
[2020-07-23] MEDS: Sodium,Potassium Phosphates POWD.PACK 1 PACKET PO ×2 (08:17→12:00)
[2020-07-23] MEDS: Dicyclomine HCl 10 MG CAPSULE PO ×2 (08:18→11:57)
[2020-07-23] MEDS: buPROPion HCl XL 300 MG TAB.ER.24H PO (08:18)
[2020-07-23] MEDS: levETIRAcetam 500 MG TABLET PO (08:18)
[2020-07-23] MEDS: oxyCODONE HCl Immed Release 5 MG TABLET PO (08:18)
[2020-07-23] MEDS: Venlafaxine HCl ER 150 MG CAP.ER.24H PO (08:18)
[2020-07-23] MEDS: Potassium Chloride ER 20 MEQ TAB.ER.PRT 40 MEQ PO (08:27)
[2020-07-23] MEDS: HYDROmorphone HCl 0.5 MG/0.5 ML SYRINGE IVPUSH (09:26)
--- NOTE | 2020-07-23 10:13 | PM.DS ---
DS: Providers Provider Date of Service: 07/23/20 <Tomasa Ta NP - Last Filed: 07/23/20 10:21> 07/23/20 <Joe Tello MD - Last Filed: 07/23/20 14:23> Date of admission: 07/21/20 00:29 <Tomsaa Ta NP - Last Filed: 07/23/20 10:21> Date of discharge: 07/23/20 <Tomasa Ta NP - Last Filed: 07/23/20 10:21> Primary care physician: Unknown Physician <Tomasa Ta NP - Last Filed: 07/23/20 10:21> Admitting clinician: Baron Koenig <Tomasa Ta NP - Last Filed: 07/23/20 10:21> Attending physician on admission: Baron Koenig <Tomasa Ta NP - Last Filed: 07/23/20 10:21> Consults: 07/21/20 10:03 Consult to Gastroenterology Routine Consulting Provider: Wood Murphy Reason for consultation: Dysphania / Odynophagia <Tomasa Ta NP - Last Filed: 07/23/20 10:21> Attending physician on discharge: Joe Tello <Tomasa Ta NP - Last Filed: 07/23/20 10:21> Discharging clinician: Tomasa Ta <Tomasa Ta NP - Last Filed: 07/23/20 10:21> DS: Diagnosis Discharge Diagnosis (1) Gastritis: Status: Acute <Tomasa Ta NP - Last Filed: 07/23/20 10:21> (2) Dysphagia: Status: Acute <Tomasa Ta NP - Last Filed: 07/23/20 10:21> (3) Diabetes type 2, uncontrolled: Status: Acute <Tomasa Ta NP - Last Filed: 07/23/20 10:21> DS: Medications Discharge Medications Home Medications: Home Medications Medication Instructions Recorded Confirmed alprazolam 1 mg PO TID PRN 12/17/19 07/21/20 clonidine HCl 0.2 mg PO BEDTIME PRN 12/17/19 07/21/20 hydroxyzine pamoate 50 mg PO Q8H PRN 12/17/19 07/21/20 levetiracetam 500 mg PO BID 12/17/19 07/21/20 mesalamine 1,600 mg PO TID 12/17/19 07/21/20 venlafaxine 150 mg 150 mg PO DAILY 03/08/20 07/21/20 capsule,extended release 24 hr zolpidem 10 mg tablet 10 mg PO BEDTIME PRN 03/08/20 07/21/20 bupropion HCl 300 mg PO DAILY 05/27/20 07/21/20 Tresiba FlexTouch U-200 20 unit SUBCUT BEDTIME 07/21/20 gabapentin 1 cap PO TID PRN 07/21/20 07/21/20 insulin aspart U-100 [Novolog 5 unit SUBCUT TIDAC 07/21/20 Flexpen U-100 Insulin] Previous Rx's Medication Instructions Recorded docusate sodium [Colace] 100 mg PO BID #30 cap 07/19/20 blood sugar diagnostic #150 ea 07/21/20 dicyclomine 10 mg PO QIDACHS 30 Days #120 cap 07/23/20 oxycodone 5 mg PO Q6H PRN #8 tab 07/23/20 <Tomasa Ta NP - Last Filed: 07/23/20 10:21> DS: Summary Hospital Course Hospital Course: HP as per admitting provider 55-year-old female with a past medical history of diabetes, anxiety, depression, COPD, multinodular goiter, hypothyroidism, history of lung cancer status post radiotherapy/chemotherapy, history of radiation esophagitis, history of colitis, history of atrial insufficiency presented to the hospital with a chief complaint of nausea vomiting and poor oral intake. Patient mentions that over the past few days she has been having nausea vomiting and abdominal pain/epigastric pain; unable to tolerate p.o.. Patient presented to the ER yesterday where she had a KUB done and had a fecal disimpaction done; patient improved symptomatically and subsequently sent home. Patient mentions that after she went home she still continued to have nausea and vomiting and unable to tolerate p.o. hence decided to come to the hospital for further evaluation. Also complained of epigastric discomfort. Denies any chest pain. Denies any numbness tingling. Denies any diarrhea . Gastritis/dysphagia/ esophageal diverticulum. History of radiation induced esophagitis after radiation and chemotherapy treatment of lung cancer. Since then she has had trouble with dysphagia, epigastric pain feelings of choking. She follows closely with Dr. Enriquez and Dr. Murphy. she had upper endoscopy on 07/22 which showed minimal gastritis, antrum biopsied, small hiatal hernia, patent area of previous stricture. Recommendation was to continue PPI, soft low residue diet. Dicyclomine was added for abdominal pain. Patient reported chronic feelings of pain and difficulty with swallowing she also reported that her anxiety seems to induce this as well. At this time she is medically stable for discharge, patient agrees. Isaw and examined the patient and discussed discharge plan with the patient, [employer] and RN and agree with discharge plan as outlined here. patient is comfortable with the plan <Tomasa Ta NP - Last Filed: 07/23/20 10:21> Time Spent with Patient Time attestation: Total time spent providing and/or coordinating discharge services: <Tomasa Ta NP - Last Filed: 07/23/20 10:21> Discharge coordination time: Greater than 30 minutes <Tomasa Ta NP - Last Filed: 07/23/20 10:21> Quality: Stroke Does the patient have a stroke diagnosis?: No <BHANU Mcnulty Last Filed: 07/23/20 10:21> Physical Exam Vital Signs: Vital Signs: Last Vital Signs Temp 98.4 F 07/23/20 07:47 Pulse 67 07/23/20 07:47 Resp 18 07/23/20 07:47 BP 154/71 H 07/23/20 07:47 Pulse Ox 92 07/23/20 07:47 Oxygen Flow Rate 2 07/20/20 15:55 Body Mass Index 26.5 <BHANU Mcnulty Last Filed: 07/23/20 10:21> Appearing in no acute distress head is normocephalic atraumatic eyes pupils are PERRLA sclera is anicteric mouth throat mucous membranes are intact and moist neck is supple no lymphadenopathy, no JVD noted lung sounds are clear to auscultation heart regular rate rhythm, clear S1, S2 positive bowel sounds, mild epigastric tenderness neuro patient is alert x3, no focal deficits <BHANU Mcnulty Last Filed: 07/23/20 10:21> DS: Data Data Completed and Pending Pending studies at discharge: Pending at discharge 07/22/20 10:40 Surgical [PTH] Routine <Tomasa Ta NP - Last Filed: 07/23/20 10:21> Labs on day of discharge: Laboratory Results - last 24 hr 07/22/20 07/22/20 07/22/20 11:40 16:04 19:57 Sodium Potassium Chloride Carbon Dioxide Anion Gap BUN Creatinine Estim Creat Clear Calc Estimated GFR POC Glucose 150 H 161 H 166 H Random Glucose Calcium 07/23/20 07/23/20 04:33 07:13 Sodium 140 Potassium 3.1 L Chloride 107 Carbon Dioxide 27 Anion Gap 9 L BUN 8 L Creatinine 0.66 Estim Creat Clear Calc 89.2 Estimated GFR > 60 POC Glucose 138 H Random Glucose 128 H Calcium 8.5 Preliminary micro results at discharge 07/20/20 17:38 Blood Culture - Preliminary Blood - Venous No growth after 48 hours. 07/20/20 17:38 Blood Culture - Preliminary Blood - Venous No growth after 48 hours. <Tomasa aT NP - Last Filed: 07/23/20 10:21> Discharge Plan Discharge Anticipated Discharge Date/Time: 07/23/20 10:04 <Tomasa Ta NP - Last Filed: 07/23/20 10:21> Patient Disposition: Home, Self-Care <Tomasa Ta NP - Last Filed: 07/23/20 10:21> Discharge Diagnosis: Gastritis Esophageal diverticulum Dysphagia <Tomasa Ta NP - Last Filed: 07/23/20 10:21> Gastritis Esophageal diverticulum Dysphagia <Joe Tello MD - Last Filed: 07/23/20 14:23> Referrals: [facility] [Outside] - 1 Week Physician,Unknown [Primary Care Provider] - 1 Week <Tomasa Ta NP - Last Filed: 07/23/20 10:21> Discharge Medications: New dicyclomine 10 mg Capsule 10 mg PO QIDACHS 30 Days Qty: 120 RF: 0 oxycodone 5 mg Tablet 5 mg PO Q6H PRN (Reason: Pain, Severe (Pain Scale 7-10)) Qty: 8 RF: 0 Continued (DME) FreeStyle Lite Strips Strip See Rx Instructions .MEDSUPPLY Qty: 150 RF: 6 insulin aspart U-100 [Novolog Flexpen U-100 Insulin] 100 unit/mL (3 mL) insulin pen 5 unit subcut TIDAC RF: 0 Tresiba FlexTouch U-200 200 unit/mL (3 mL) insulin pen 20 unit subcut BEDTIME RF: 0 bupropion HCl 150 mg tablet sustained-release 12 hr 300 mg PO DAILY RF: 0 clonidine HCl 0.1 mg tablet 0.2 mg PO BEDTIME PRN (Reason: Anxiety) RF: 0 alprazolam 1 mg tablet 1 mg PO TID PRN (Reason: Anxiety) RF: 0 hydroxyzine pamoate 50 mg capsule 50 mg PO Q8H PRN (Reason: Anxiety) RF: 0 levetiracetam 500 mg tablet 500 mg PO BID RF: 0 mesalamine 800 mg tablet,delayed release (DR/EC) 1,600 mg PO TID RF: 0 docusate sodium [Colace] 100 mg capsule 100 mg PO BID Qty: 30 RF: 0 gabapentin 300 mg capsule 1 cap PO TID PRN (Reason: Pain) RF: 0 venlafaxine 150 mg capsule,extended release 24hr 150 mg PO DAILY RF: 0 zolpidem 10 mg tablet 10 mg PO BEDTIME PRN (Reason: Sleep) RF: 0 <Tomasa Ta NP - Last Filed: 07/23/20 10:21> Discharge Orders: Discharge Order (Routine); Ordered 07/23/20 Ordered By: Tomasa Ta <Tomasa Ta NP - Last Filed: 07/23/20 10:21> Diet: advance to usual diet <Tomasa Ta NP - Last Filed: 07/23/20 10:21> advance to usual diet <Joe Tello MD - Last Filed: 07/23/20 14:23> Activity on Discharge: As tolerated <Tomasa Ta NP - Last Filed: 07/23/20 10:21> As tolerated <Joe Tello MD - Last Filed: 07/23/20 14:23> Stand Alone Forms: Patient Portal Discharge page <Tomasa Ta NP - Last Filed: 07/23/20 10:21> Care Plan Goals: Resolution of gastritis symptoms <Tomasa Ta NP - Last Filed: 07/23/20 10:21> Health Concerns: Gastritis Esophagitis diverticula Dysphagia <Tomasa Ta NP - Last Filed: 07/23/20 10:21> Plan of Treatment: Follow up with office support specialist as needed Follow-up with your primary care provider as needed You have been started on a new medication, take as prescribed In regards to dysphagia consider eating soft foods, chew food slowly and take time in between bites of food to swallow with liquids. <Tomasa Ta NP - Last Filed: 07/23/20 10:21> Assessment: See discharge summary <Tomasa Ta NP - Last Filed: 07/23/20 10:21>
[2020-07-23 11:28] LABS: Glucose, Whole Blood 212 mg/dL (60-115)
[2020-07-23 11:47] VITALS: BP 143/80; PULSE 66; RESP 20; TEMP 36.2; O2SAT 96
[2020-07-23] MEDS: Insulin Lispro 100 UNIT/ML 3 ML VIAL SUBCUT (11:56)
[2020-07-23] MEDS: ALPRAZolam 0.5 MG TABLET 1 MG PO (11:57)
--- NOTE | 2020-07-23 12:09 | MHC.CM.PN ---
Addendum entered by Kendal Dunbar 07/23/20 12:10: PT [facility]CHARGE WITH [facility]. [facility] NOTIFIED VIA [employer]. Original Note: PT WILL DC HOME TODAY WITH RESUMPTION OF [employer] [facility]. DAUGHTER TO TRANSPORT
== END 2020-07-23 14:20 | disposition home or self-care (01) | DRG 392 ==
LOC: HO.ED 23:09 → HO.EDOVER 07-21 02:08 → HO.IMC 07-21 02:28
PROVIDERS: Family Medicine; Internal Medicine; Physician Assistant; Admitting Provider Hospitalist; Emergency Provider Internal Medicine; PCP Internal Medicine; Visit Provider Nurse Practitioner Acute Care
DX: K29.70 Gastritis, unspecified, without bleeding (principal); E11.65 Type 2 diabetes mellitus with hyperglycemia; J44.9 Chronic obstructive pulmonary disease, unspecified; E86.0 Dehydration; G89.29 Other chronic pain; E03.9 Hypothyroidism, unspecified; K22.5 Diverticulum of esophagus, acquired; K44.9 Diaphragmatic hernia without obstruction or gangrene; R13.10 Dysphagia, unspecified; F17.210 Nicotine dependence, cigarettes, uncomplicated; Z71.6 Tobacco abuse counseling; Z91.14 Patient's other noncompliance with medication regimen; Z85.118 Personal history of other malignant neoplasm of bronchus and lung; Z20.822 Contact with and (suspected) exposure to COVID-19; Z88.6 Allergy status to analgesic agent; Z79.4 Long term (current) use of insulin; Z79.899 Other long term (current) drug therapy
CPT/HCPCS: 36415; 71045; 74018; 74176; 74177; 80048; 80076; 82009; 82947; 83605; 83690; 83735; 84100; 84484; 85025; 85027; 85610; 87040; 87635; 88305; 88342; 93005; 96374; 96375; 99285; J1170; J1200; J1650; J2270; J2405; J2543; J2765; Q9967

== ENCOUNTER 2020-08-17 07:13 | Emergency (ER) | payer OTHER, SELFPAY ==
--- NOTE | 2020-08-17 07:34 | ECG_ITS ---
Test Reason : weakness Blood Pressure : / mmHG Vent. Rate : 094 BPM Atrial Rate : 094 BPM P-R Int : 166 ms QRS Dur : 070 ms QT Int : 342 ms P-R-T Axes : 066 049 046 degrees QTc Int : 427 ms Normal sinus rhythm Possible Left atrial enlargement Borderline ECG When compared with ECG of 19-JUL-2020 14:07, Nonspecific T wave abnormality no longer evident in Inferior leads Nonspecific T wave abnormality no longer evident in Anterolateral leads Referred By: Emelyn Cespedes Electronically Signed By:IGOR HOROWITZ MD
[2020-08-17 07:37] VITALS: BP 151/90; PULSE 94; RESP 17; TEMP 37.1; O2SAT 98; BMI 23.9
--- NOTE | 2020-08-17 07:40 | ED_ITS ---
HPI - General Adult General Chief complaint: Headache Stated complaint: hbs Time Seen by Provider: 08/17/20 07:32 Source: patient and old records reviewed Mode of arrival: ambulatory Limitations: no limitations History of Present Illness HPI narrative: 55 yo female with hx of opiate use disorder, gastritis, fibromya lgia, UTI, IDDM, AI, non small cell carcinoma of left lung, just seen in July with c/o hyperglycemia, abdominal pain, just seen for hyperglycemia and saw her oncologist on 08/[address] scan findings: CT scan of the chest from April revealed: Unremarkable examination. Since the CT scan showed no evidence of tumor, I have elected to give her a break from treatment, so she can recover from the toxicity and gain some strength back. She is now insisting that I restart her on Nivolumab. My concern is that, at this point there is no indication for treatment. She complains of nausea and vertigo. Taken from Dr. Fischer notes) she has c/o headaches for months now with negative imaging, she states since last night her blood sugars have been high and she is compliant with medications and diet, she states she took 90 units of short acting insulin prior to arrival which seems excessive and unusual, she states she does not have her kwikpen on her to show us the dosage and amounts left, she is demanding narcotics on arrival to the ED, stating she wants dilaudid because she is on chemo but her most recent oncology note states she is not undergoing treatment at this time, she is very upset and adamant she is going to have her pain treated in the ED, I told her we need to treat her blood sugar and she no longer seems to be concerned about her hyperglycemia but just wants pain medications. RN and technician automated equipment present for the duration of our conversation. Pain management has seen her in the past but she refuses alf care like suboxone, she was just seen by a dentist and it was noted that he gave her 5 pills of oxycodone which she took. MD complaint: pain and elevated blood sugars Onset (ago): day(s) (1) Location: head, left, right, upper extremity and lower extremity Radiation: non-radiation Severity: moderate and similar to prior episodes Quality: aching Pain Consistency: constant Relieving factors: none Exacerbating factors: none Associated symptoms: other (elevated blood sugars) Treatments prior to arrival: other (states she took 90 units of short acting insulin prior to arrival for +++ on her machine) Related Data Home Medications Medication Instructions Recorded Confirmed alprazolam 1 mg PO TID PRN 12/17/19 07/21/20 clonidine HCl 0.2 mg PO BEDTIME PRN 12/17/19 07/21/20 hydroxyzine pamoate 50 mg PO Q8H PRN 12/17/19 07/21/20 levetiracetam 500 mg PO BID 12/17/19 07/21/20 mesalamine 1,600 mg PO TID 12/17/19 07/21/20 venlafaxine 150 mg 150 mg PO DAILY 03/08/20 07/21/20 capsule,extended release 24 hr zolpidem 10 mg tablet 10 mg PO BEDTIME PRN 03/08/20 07/21/20 bupropion HCl 300 mg PO DAILY 05/27/20 07/21/20 gabapentin 1 cap PO TID PRN 07/21/20 08/05/20 insulin aspart U-100 [Novolog 5 unit SUBCUT TIDAC 07/21/20 08/05/20 Flexpen U-100 Insulin] insulin glargine U-300 conc 20 unit SUBCUT BEDTIME 08/05/20 08/05/20 [Toujeo SoloStar U-300 Insulin] Previous Rx's Medication Instructions Recorded docusate sodium [Colace] 100 mg PO BID #30 cap 07/19/20 blood sugar diagnostic #150 ea 07/21/20 dicyclomine 10 mg PO QIDACHS 30 Days #120 cap 07/23/20 ondansetron HCl [Zofran] 4 mg PO Q8H #50 tab 08/05/20 scopolamine base 1 patch TRANSDERMAL Q3D #5 ea 08/05/20 Allergies Allergy/AdvReac Type Severity Reaction Status Date / Time acetaminophen [Tylenol] AdvReac Unknown Abdominal Verified 07/15/20 10:16 Pain ibuprofen AdvReac Unknown Abdominal Verified 07/15/20 10:16 Pain senna AdvReac Unknown Headache Verified 07/15/20 10:16 Review of Systems Review of Systems: Constitutional : No Weight loss, No Fever, No Chills, pos Fatigue, pos Malaise ENT/Mouth : No sore throat, No Rhinorrhea Eyes: No Eye Pain, No Swelling, No Redness Cardiovascular : No Chest Pain, No SOB, No Dyspnea on Exertion, No Orthopnea, No Edema, No Palpitations Respiratory : No Cough, No Sputum, No Wheezing Gastrointestinal : pos Nausea, No Vomiting, No Diarrhea, No Constipation, No abdominal Pain, No Hematochezia, No Melena Genitourinary : No Dysuria, No Urinary Frequency, No Hematuria, Musculoskeletal :pos joint pain, pos Myalgias, No Joint Swelling Skin : No Skin Lesions, No rash Neuro : No Weakness, No Numbness, No Dizziness, No Headache Psych : No Anxiety/Panic, No Depression Heme/Lymph: No Bruising, No Bleeding,No Lymphadenopathy Endocrine : No Polyuria, No Polydipsia, pos elevated blood sugars All other systems reviewed and are negative [facility] Past Medical History Attestation statement: The following information was validated with the patient. Medical History Adrenal insufficiency due to cancer therapy Aftercare following left shoulder joint replacement surgery Arthritis Asthma Colitis COPD (chronic obstructive pulmonary disease) Depression Diabetes type 2, uncontrolled Fibromyalgia History of lung cancer Hypothyroidism Multinodular goiter Newly diagnosed diabetes Non-small cell carcinoma of left lung, stage 4 Opioid abuse Opioid use disorder Pancreatitis (~02/2018) Radiation-induced esophagitis Subclinical hyperthyroidism Surgical History History of History of cholecystectomy (~12/02/08) History of endometrial ablation (~07/25/06) History of esophageal dilatation (~02/24/18) History of esophagogastroduodenoscopy (EGD) (~09/04/19) Hx of blepharoplasty (~2018) Hx of shoulder surgery (~2014) Family History Family History Father Pancreatic cancer Mother Diabetes Brother Diabetes Sister Diabetes Social History Social History Household Members: Family Housing: House Do you presently have visiting nurse or other home services: Yes (Ronnie, 24) Alcohol intake: never Patient Tobacco Use Status: Current someday Tobacco user Cigarettes Per Day: 1 Years Smoked: 45 Second Hand Smoke Exposure: No Advance Directives Date on File: 05/12/20 service: No Current occupational status: disabled Physical Exam Vital Signs: Vital Signs: Last Vital Signs Temp 98.7 F 08/17/20 07:37 Pulse 86 08/17/20 09:16 Resp 16 08/17/20 09:16 BP 134/85 08/17/20 09:16 Pulse Ox 95 08/17/20 09:16 Body Mass Index 23.9 Appearance: Alert. Oriented X3. No acute distress. Eyes: Pupils equal, round and reactive to light. ENT: Pharynx normal. Neck: Normal inspection. Neck supple. CVS: Normal heart rate and rhythm. Pulses normal. Respiratory: No respiratory distress. Breath sounds normal. Abdomen: Soft and mild diffuse ttp no rebound or guarding. Skin: Skin warm and dry. Normal skin color. Normal skin turgor. Extremities: trace lower extremity edema. No calf ttp Neuro: Oriented X 3. No motor deficit. No sensory deficit. Course Course Course Narrative: lactic acidosis likely due to her issues with BS no WBC count no fevers, stable BP - no source of infection or suspicion of severe sepsis at this time repeat BMP and lactic acid ordered, patient positive for opiates but does not have Rx at this time labs back to normal lactic acid 2.1, no UTI, no signs of infection, stable for DC at this time, no DKA Medical Decision Making MDM Narrative Medical decision making narrative: 55 yo female with hx of opiate use disorder, gastritis, fibromyalgia, UTI, IDDM, AI, non small cell carcinoma of left lung, just seen in July with c/o hyperglycemia, abdominal pain, just seen for hyperglycemia here with c/o blood sugar HI and states she took 90 units o her flexpen prior to arrival but does not have the pen and cannot send me a picture of the pen itself I highly doubt she took 90s units as the entire pen would be gone and she would likely be , she is very upset with me that I won't give her dilaudid as I do not see a reason why her elevated blood sugar requires narcotics, she has a hx of firing providers if she does not receive opiates she has made threats in the past per EMR, she has declined pain management and suboxone, she needs labs, IVF, blood work, EKG, and UA, I do not feel comfortable given her narcotics at this time as she is making statements that she is on chemo and in fact her visit from 08/05 states she is not, she is not being truthful during her visit and it seems most of her complaints are driven by IV narcotics. Lab Data Result diagrams: 08/17/20 07:57 08/17/20 10:43 Labs: Lab Results 08/17/20 08/17/20 08/17/20 Range/Units 07:52 07:57 07:57 WBC 8.4 (4.8-10.8) X10*3/uL RBC 4.01 L (4.20-5.50) X10*6/uL Hgb 11.5 L (12.0-16.0) g/dl Hct 34.3 L (37-47) % MCV 85.5 (80-98) fL MCH 28.7 (27.0-33.0) pg MCHC 33.5 (31.0-35.0) g/dl RDW 13.4 (11.0-16.0) % Plt Count 222 (160-400) X10*3/uL MPV 12.2 (9.4-12.3) fL Immature Gran % (Auto) 0.5 H (0.0-0.4) % Neut % (Auto) 84.7 H (45-73) % Lymph % (Auto) 12.0 L (20-40) % [place] % (Auto) 2.2 (2-11) % Eos % (Auto) 0.1 (0-4) % Baso % (Auto) 0.5 (0-2) % Lymph # (Auto) 1.0 L (1.2-4.9) X10*3/uL [place] # (Auto) 0.2 (0.1-1.2) X10*3/uL Eos # (Auto) 0.0 (0.0-0.4) X10*3/uL Baso # (Auto) 0.0 (0.0-0.2) X10*3/uL Abs Immat Gran (auto) 0.04 H (0.00-0.03) X10*3/uL Absolute Neuts (auto) 7.1 (2.0-8.3) X10*3/uL Absolute Nucleated RBC 0.000 (0.0-0.012) X10*3/uL Nucleated RBC % (auto) 0.0 (0.0-0.2) /100WBC Hold Blue Top O2 Saturation % ABG pH at Pt Temp (7.35-7.45) ABG pCO2 at Pt Temp (32-45) mmHg ABG pO2 at Pt Temp (83-108) mmHg ABG HCO3 (22-26) mmol/L ABG Base Excess (Actual) mmol/L Sodium 131 L (135-145) mmol/L Potassium 6.0 H* D (3.3-5.1) mmol/L Chloride 96 (96-108) mmol/L Carbon Dioxide 24 (22-29) mmol/L Anion Gap 17 (12-20) BUN 13 D (9-16) mg/dL Creatinine 1.35 (0.5-1.4) mg/dL Estim Creat Clear Calc 38.9 Estimated GFR 41 POC Glucose 580 H* (60-115) mg/dL Random Glucose 627 H* (60-115) mg/dL Lactic Acid (0.5-2.0) mmol/L Lactic Acid Fup @ 2Hr (0.5-2.0) mmol/L Calcium 10.3 H D (8.4-10.2) mg/dL Magnesium 1.9 (1.6-2.6) mg/dL Total Bilirubin 0.2 (0.0-1.0) mg/dL Direct Bilirubin < 0.2 (0.0-0.5) mg/dL AST 15 (5-31) U/L ALT 14 (0-31) U/L Alkaline Phosphatase 129 H (39-117) U/L Total Protein 7.6 (6.5-8.0) g/dL Albumin 4.4 (3.5-5.0) g/dL Lipase 8 (8-78) U/L Urine Color Urine Appearance Urine pH (5.0-8.0) Ur Specific [place] (1.005-1.025) Urine Protein (NEG-TRACE) MG/DL Urine Glucose (UA) (NEG) MG/DL Urine Ketones (NEG) MG/DL Urine Blood (NEG) Urine Nitrite (NEG) Ur Leukocyte Esterase (NEG) Urine RBC (0) /HPF Urine WBC (0-4) /HPF Ur Squamous Epith Cells /LPF Urine Bacteria /LPF Urine Opiates Screen (Not Detect) Ur Barbiturates Screen (Not Detect) Ur Phencyclidine Scrn (Not Detect) Ur Amphetamines Screen (Not Detect) U Benzodiazepines Scrn (Not Detect) Urine Cocaine Screen (Not Detect) U Marijuana (THC) Screen (Not Detect) Acetone, Qual Negative (Negative) 08/17/20 08/17/20 08/17/20 Range/Units 07:57 07:57 08:20 WBC (4.8-10.8) X10*3/uL RBC (4.20-5.50) X10*6/uL Hgb (12.0-16.0) g/dl Hct (37-47) % MCV (80-98) fL MCH (27.0-33.0) pg MCHC (31.0-35.0) g/dl RDW (11.0-16.0) % Plt Count (160-400) X10*3/uL MPV (9.4-12.3) fL Immature Gran % (Auto) (0.0-0.4) % Neut % (Auto) (45-73) % Lymph % (Auto) (20-40) % [place] % (Auto) (2-11) % Eos % (Auto) (0-4) % Baso % (Auto) (0-2) % Lymph # (Auto) (1.2-4.9) X10*3/uL [place] # (Auto) (0.1-1.2) X10*3/uL Eos # (Auto) (0.0-0.4) X10*3/uL Baso # (Auto) (0.0-0.2) X10*3/uL Abs Immat Gran (auto) (0.00-0.03) X10*3/uL Absolute Neuts (auto) (2.0-8.3) X10*3/uL Absolute Nucleated RBC (0.0-0.012) X10*3/uL Nucleated RBC % (auto) (0.0-0.2) /100WBC Hold Blue Top SEE NOTE O2 Saturation % ABG pH at Pt Temp (7.35-7.45) ABG pCO2 at Pt Temp (32-45) mmHg ABG pO2 at Pt Temp (83-108) mmHg ABG HCO3 (22-26) mmol/L ABG Base Excess (Actual) mmol/L Sodium (135-145) mmol/L Potassium (3.3-5.1) mmol/L Chloride (96-108) mmol/L Carbon Dioxide (22-29) mmol/L Anion Gap (12-20) BUN (9-16) mg/dL Creatinine (0.5-1.4) mg/dL Estim Creat Clear Calc Estimated GFR POC Glucose (60-115) mg/dL Random Glucose (60-115) mg/dL Lactic Acid 3.8 H* (0.5-2.0) mmol/L Lactic Acid Fup @ 2Hr (0.5-2.0) mmol/L Calcium (8.4-10.2) mg/dL Magnesium (1.6-2.6) mg/dL Total Bilirubin (0.0-1.0) mg/dL Direct Bilirubin (0.0-0.5) mg/dL AST (5-31) U/L ALT (0-31) U/L Alkaline Phosphatase (39-117) U/L Total Protein (6.5-8.0) g/dL Albumin (3.5-5.0) g/dL Lipase (8-78) U/L Urine Color STRAW Urine Appearance CLEAR Urine pH 5.5 (5.0-8.0) Ur Specific [place] <= 1.005 (1.005-1.025) Urine Protein NEG (NEG-TRACE) MG/DL Urine Glucose (UA) >=1000 H (NEG) MG/DL Urine Ketones NEG (NEG) MG/DL Urine Blood TRACE (NEG) Urine Nitrite NEG (NEG) Ur Leukocyte Esterase NEG (NEG) Urine RBC 0-2 (0) /HPF Urine WBC 0-2 (0-4) /HPF Ur Squamous Epith Cells TRACE /LPF Urine Bacteria 2+ /LPF Urine Opiates Screen (Not Detect) Ur Barbiturates Screen (Not Detect) Ur Phencyclidine Scrn (Not Detect) Ur Amphetamines Screen (Not Detect) U Benzodiazepines Scrn (Not Detect) Urine Cocaine Screen (Not Detect) U Marijuana (THC) Screen (Not Detect) Acetone, Qual (Negative) 08/17/20 08/17/20 08/17/20 Range/Units 08:20 09:12 09:38 WBC (4.8-10.8) X10*3/uL RBC (4.20-5.50) X10*6/uL Hgb (12.0-16.0) g/dl Hct (37-47) % MCV (80-98) fL MCH (27.0-33.0) pg MCHC (31.0-35.0) g/dl RDW (11.0-16.0) % Plt Count (160-400) X10*3/uL MPV (9.4-12.3) fL Immature Gran % (Auto) (0.0-0.4) % Neut % (Auto) (45-73) % Lymph % (Auto) (20-40) % [place] % (Auto) (2-11) % Eos % (Auto) (0-4) % Baso % (Auto) (0-2) % Lymph # (Auto) (1.2-4.9) X10*3/uL [place] # (Auto) (0.1-1.2) X10*3/uL Eos # (Auto) (0.0-0.4) X10*3/uL Baso # (Auto) (0.0-0.2) X10*3/uL Abs Immat Gran (auto) (0.00-0.03) X10*3/uL Absolute Neuts (auto) (2.0-8.3) X10*3/uL Absolute Nucleated RBC (0.0-0.012) X10*3/uL Nucleated RBC % (auto) (0.0-0.2) /100WBC Hold Blue Top O2 Saturation 99.0 % ABG pH at Pt Temp 7.44 (7.35-7.45) ABG pCO2 at Pt Temp 33 (32-45) mmHg ABG pO2 at Pt Temp 136 H (83-108) mmHg ABG HCO3 23 (22-26) mmol/L ABG Base Excess (Actual) -0.2 mmol/L Sodium (135-145) mmol/L Potassium (3.3-5.1) mmol/L Chloride (96-108) mmol/L Carbon Dioxide (22-29) mmol/L Anion Gap (12-20) BUN (9-16) mg/dL Creatinine (0.5-1.4) mg/dL Estim Creat Clear Calc Estimated GFR POC Glucose 450 H* (60-115) mg/dL Random Glucose (60-115) mg/dL Lactic Acid (0.5-2.0) mmol/L Lactic Acid Fup @ 2Hr (0.5-2.0) mmol/L Calcium (8.4-10.2) mg/dL Magnesium (1.6-2.6) mg/dL Total Bilirubin (0.0-1.0) mg/dL Direct Bilirubin (0.0-0.5) mg/dL AST (5-31) U/L ALT (0-31) U/L Alkaline Phosphatase (39-117) U/L Total Protein (6.5-8.0) g/dL Albumin (3.5-5.0) g/dL Lipase (8-78) U/L Urine Color Urine Appearance Urine pH (5.0-8.0) Ur Specific [place] (1.005-1.025) Urine Protein (NEG-TRACE) MG/DL Urine Glucose (UA) (NEG) MG/DL Urine Ketones (NEG) MG/DL Urine Blood (NEG) Urine Nitrite (NEG) Ur Leukocyte Esterase (NEG) Urine RBC (0) /HPF Urine WBC (0-4) /HPF Ur Squamous Epith Cells /LPF Urine Bacteria /LPF Urine Opiates Screen POSITIVE H (Not Detect) Ur Barbiturates Screen Not Detected (Not Detect) Ur Phencyclidine Scrn Not Detected (Not Detect) Ur Amphetamines Screen Not Detected (Not Detect) U Benzodiazepines Scrn POSITIVE H (Not Detect) Urine Cocaine Screen Not Detected (Not Detect) U Marijuana (THC) Screen Not Detected (Not Detect) Acetone, Qual (Negative) 08/17/20 08/17/20 08/17/20 Range/Units 10:20 10:43 10:43 WBC (4.8-10.8) X10*3/uL RBC (4.20-5.50) X10*6/uL Hgb (12.0-16.0) g/dl Hct (37-47) % MCV (80-98) fL MCH (27.0-33.0) pg MCHC (31.0-35.0) g/dl RDW (11.0-16.0) % Plt Count (160-400) X10*3/uL MPV (9.4-12.3) fL Immature Gran % (Auto) (0.0-0.4) % Neut % (Auto) (45-73) % Lymph % (Auto) (20-40) % [place] % (Auto) (2-11) % Eos % (Auto) (0-4) % Baso % (Auto) (0-2) % Lymph # (Auto) (1.2-4.9) X10*3/uL [place] # (Auto) (0.1-1.2) X10*3/uL Eos # (Auto) (0.0-0.4) X10*3/uL Baso # (Auto) (0.0-0.2) X10*3/uL Abs Immat Gran (auto) (0.00-0.03) X10*3/uL Absolute Neuts (auto) (2.0-8.3) X10*3/uL Absolute Nucleated RBC (0.0-0.012) X10*3/uL Nucleated RBC % (auto) (0.0-0.2) /100WBC Hold Blue Top O2 Saturation % ABG pH at Pt Temp (7.35-7.45) ABG pCO2 at Pt Temp (32-45) mmHg ABG pO2 at Pt Temp (83-108) mmHg ABG HCO3 (22-26) mmol/L ABG Base Excess (Actual) mmol/L Sodium 137 (135-145) mmol/L Potassium 4.6 D (3.3-5.1) mmol/L Chloride 106 (96-108) mmol/L Carbon Dioxide 23 (22-29) mmol/L Anion Gap 13 (12-20) BUN 12 (9-16) mg/dL Creatinine 0.84 (0.5-1.4) mg/dL Estim Creat Clear Calc 62.6 Estimated GFR > 60 POC Glucose 242 H (60-115) mg/dL Random Glucose 251 H D (60-115) mg/dL Lactic Acid (0.5-2.0) mmol/L Lactic Acid Fup @ 2Hr 2.1 H* (0.5-2.0) mmol/L Calcium 9.2 D (8.4-10.2) mg/dL Magnesium (1.6-2.6) mg/dL Total Bilirubin (0.0-1.0) mg/dL Direct Bilirubin (0.0-0.5) mg/dL AST (5-31) U/L ALT (0-31) U/L Alkaline Phosphatase (39-117) U/L Total Protein (6.5-8.0) g/dL Albumin (3.5-5.0) g/dL Lipase (8-78) U/L Urine Color Urine Appearance Urine pH (5.0-8.0) Ur Specific [place] (1.005-1.025) Urine Protein (NEG-TRACE) MG/DL Urine Glucose (UA) (NEG) MG/DL Urine Ketones (NEG) MG/DL Urine Blood (NEG) Urine Nitrite (NEG) Ur Leukocyte Esterase (NEG) Urine RBC (0) /HPF Urine WBC (0-4) /HPF Ur Squamous Epith Cells /LPF Urine Bacteria /LPF Urine Opiates Screen (Not Detect) Ur Barbiturates Screen (Not Detect) Ur Phencyclidine Scrn (Not Detect) Ur Amphetamines Screen (Not Detect) U Benzodiazepines Scrn (Not Detect) Urine Cocaine Screen (Not Detect) U Marijuana (THC) Screen (Not Detect) Acetone, Qual (Negative) ECG Data Attestation: I personally reviewed and interpreted this ECG as follows: Interpretation: Rate: 94 Rhythm: NSR [place]: normal Normal P waves. Normal [place]. Normal QRS complex. ST T wave : normal no JAKE qTC: normal prior studies: no acute ischemia The study has been interpreted contemporaneously by me. . Discharge Plan Discharge Clinical Impression: Acute dehydration, Acute hyperglycemia, Opioid use disorder Patient Disposition: Home, Self-Care Instructions: Dehydration (ED), Diabetic Hyperglycemia (ED), Opioid Use Disorder (ED) Additional Instructions: return to ED for any worsening symptoms or concerns with fluids and insulin your labs and blood sugar corrected, you tested positive for opiates in your urine Prescriptions: No Action (DME) FreeStyle Lite Strips Strip See Rx Instructions .MEDSUPPLY Qty: 150 RF: 6 insulin aspart U-100 [Novolog Flexpen U-100 Insulin] 100 unit/mL (3 mL) insulin pen 5 unit subcut TIDAC RF: 0 bupropion HCl 150 mg tablet sustained-release 12 hr 300 mg PO DAILY RF: 0 clonidine HCl 0.1 mg tablet 0.2 mg PO BEDTIME PRN (Reason: Anxiety) RF: 0 alprazolam 1 mg tablet 1 mg PO TID PRN (Reason: Anxiety) RF: 0 hydroxyzine pamoate 50 mg capsule 50 mg PO Q8H PRN (Reason: Anxiety) RF: 0 levetiracetam 500 mg tablet 500 mg PO BID RF: 0 mesalamine 800 mg tablet,delayed release (DR/EC) 1,600 mg PO TID RF: 0 Toujeo SoloStar U-300 Insulin 300 unit/mL (1.5 mL) insulin pen 20 unit subcut BEDTIME RF: 0 ondansetron HCl [Zofran] 4 mg Tablet 4 mg PO Q8H Qty: 50 RF: 1 scopolamine base 1 mg over 3 days Patch 3 Day 1 patch TRANSDERMAL Q3D Qty: 5 RF: 2 docusate sodium [Colace] 100 mg capsule 100 mg PO BID Qty: 30 RF: 0 gabapentin 300 mg capsule 1 cap PO TID PRN (Reason: Pain) RF: 0 dicyclomine 10 mg Capsule 10 mg PO QIDACHS 30 Days Qty: 120 RF: 0 venlafaxine 150 mg capsule,extended release 24hr 150 mg PO DAILY RF: 0 zolpidem 10 mg tablet 10 mg PO BEDTIME PRN (Reason: Sleep) RF: 0 Referrals: Physician,None [Primary Care Provider] - 2 days (your primary care) Interventions: ED Discharge Assessment Last Done: 08/17/20 11:53 Discharge Date/Time: 08/17/20 12:02
--- NOTE | 2020-08-17 08:00 | PC.NURSE ---
fsbs 580
--- NOTE | 2020-08-17 08:15 | PC.NURSE ---
Patient is resting quietly in bed with eyes closed in no distress
[2020-08-17 08:21] LABS: MANUAL DIFF FLAG NO
[2020-08-17 08:28] LABS: Basophils Percent Auto 0.5 % (0-2); Eosinophils Percent Auto 0.1 % (0-4); Hematocrit 34.3 % (37-47); Hemoglobin 11.5 g/dl (12.0-16.0); Imm Gran Abs Auto 0.04 X10*3/uL (0.00-0.03); Imm Gran Pct Auto 0.5 % (0.0-0.4); Mean Corpuscular HGB Conc 33.5 g/dl (31.0-35.0); Mean Corpuscular Hemoglobin 28.7 pg (27.0-33.0); Mean Corpuscular Volume 85.5 fL (80-98); Mean Platelet Volume 12.2 fL (9.4-12.3); Monocytes Absolute Auto 0.2 X10*3/uL (0.1-1.2); Monocytes Percent Auto 2.2 % (2-11); Neutrophils Absolute Auto 7.1 X10*3/uL (2.0-8.3); Neutrophils Percent Auto 84.7 % (45-73); Platelet Count 222 X10*3/uL (160-400); Red Blood Count 4.01 X10*6/uL (4.20-5.50); Red Cell Distribution Width 13.4 % (11.0-16.0); White Blood Count 8.4 X10*3/uL (4.8-10.8)
[2020-08-17 08:40] LABS: Lactic Acid 3.8 mmol/L (0.5-2.0)
[2020-08-17 08:54] LABS: Alanine Aminotransferase 14 U/L (0-31); Albumin Level 4.4 g/dL (3.5-5.0); Alkaline Phosphatase 129 U/L (39-117); Anion Gap 17 (12-20); Aspartate Amino Transferase 15 U/L (5-31); Bilirubin Direct < 0.2 mg/dL (0.0-0.5); Bilirubin Total 0.2 mg/dL (0.0-1.0); Blood Urea Nitrogen 13 mg/dL (9-16); Calcium 10.3 mg/dL (8.4-10.2); Carbon Dioxide 24 mmol/L (22-29); Chloride 96 mmol/L (96-108); Creatinine Clr Calc Pharmacy 38.9; Estimated Glomerular Filt Rate 41; Glucose Random 627 mg/dL (60-115); Lipase 8 U/L (8-78); Magnesium 1.9 mg/dL (1.6-2.6); Sodium 131 mmol/L (135-145); Total Protein 7.6 g/dL (6.5-8.0)
[2020-08-17 09:05] LABS: Acetone, serum QL Negative (Negative)
[2020-08-17 09:10] LABS: Glucose Urine UA >=1000 MG/DL (NEG); Leukocyte Esterase Urine NEG (NEG); Nitrite Urine NEG (NEG); PH 5.5 (5.0-8.0); Specific Gravity - Urine <= 1.005 (1.005-1.025); Urine Blood TRACE (NEG); Urine Ketones NEG (NEG); Urine Protein NEG (NEG-TRACE)
[2020-08-17 09:11] LABS: Appearance Urine CLEAR; Color Urine STRAW
--- NOTE | 2020-08-17 09:12 | PC.NURSE ---
fsbs 450
[2020-08-17] MEDS: Insulin Regular, Human 100 UNIT/ML 3 ML VIAL 10 UNIT IVPUSH (09:14)
[2020-08-17] MEDS: 0.9 % Sodium Chloride 1,000 ML 999 ML IVCONT (09:15)
[2020-08-17 09:16] VITALS: BP 134/85; PULSE 86; RESP 16; O2SAT 95
[2020-08-17 09:22] LABS: WBC Urine 0-2 /HPF (0-4)
[2020-08-17 09:23] LABS: Glucose, Whole Blood 450 mg/dL (60-115)
[2020-08-17 09:23] LABS: Glucose, Whole Blood 580 mg/dL (60-115)
[2020-08-17 09:23] LABS: Bacteria Urine 2+ /LPF; RBC Urine 0-2 /HPF (0); Squamous Epithelial Cell Urine TRACE /LPF
[2020-08-17 09:46] LABS: ABG Base Excess -0.2 mmol/L; ABG HCO3 23 mmol/L (22-26); ABG pCO2 33 mmHg (32-45); ABG pH 7.44 (7.35-7.45); ABG pO2 136 mmHg (83-108)
[2020-08-17 09:58] LABS: Venous Blood Gas Refer to POC result
[2020-08-17 10:18] LABS: Reflex Lactate? Lactic Acid Added
[2020-08-17 10:24] LABS: Glucose, Whole Blood 242 mg/dL (60-115)
[2020-08-17 10:29] LABS: Amphetamine Screen Urine Not Detected (Not Detect); Barbiturates, Urine Not Detected (Not Detect); Benzodiazepines Screen Urine POSITIVE (Not Detect); Cannabinoid Screen Urine Not Detected (Not Detect); Cocaine Screen Urine Not Detected (Not Detect); Opiate Screen Urine POSITIVE (Not Detect); Phencyclidine Screen Urine Not Detected (Not Detect)
[2020-08-17 11:09] LABS: ~Lactic Acid-LAB USE ONLY 2.1 mmol/L (0.5-2.0)
[2020-08-17 11:10] LABS: Anion Gap 13 (12-20); Blood Urea Nitrogen 12 mg/dL (9-16); Calcium 9.2 mg/dL (8.4-10.2); Carbon Dioxide 23 mmol/L (22-29); Chloride 106 mmol/L (96-108); Creatinine Clr Calc Pharmacy 62.6; Estimated Glomerular Filt Rate > 60; Glucose Random 251 mg/dL (60-115); Potassium 4.6 mmol/L (3.3-5.1); Sodium 137 mmol/L (135-145)
[2020-08-17 12:46] LABS: Reflex Lactate? 2 Y
== END 2020-08-17 12:02 | disposition home or self-care (01) ==
PROVIDERS: Emergency Provider Emergency Medicine
DX: E86.0 Dehydration (principal); E11.65 Type 2 diabetes mellitus with hyperglycemia; F11.10 Opioid abuse, uncomplicated; C34.92 Malignant neoplasm of unspecified part of left bronchus or lung; Z79.4 Long term (current) use of insulin; Z79.899 Other long term (current) drug therapy
CPT/HCPCS: 36415; 80048; 80076; 80307; 81001; 82009; 82947; 83605; 83690; 83735; 85025; 93005; 96361; 96374; 99284; 99285

== ENCOUNTER → 2020-08-18 14:38 | Outpatient (BNVA) | payer OTHER, SELFPAY | PROVIDERS: Visit Provider Internal Medicine Endocrinology, Diabetes & Metabolism | DX: E11.9 Type 2 diabetes mellitus without complications (principal); E27.3 Drug-induced adrenocortical insufficiency; E05.90 Thyrotoxicosis, unspecified without thyrotoxic crisis or storm; E04.2 Nontoxic multinodular goiter; Z79.899 Other long term (current) drug therapy | CPT/HCPCS: 82947; 99212 ==

== ENCOUNTER 2020-12-31 15:09 | Emergency (ER) | payer OTHER, SELFPAY ==
--- NOTE | ~2020-12-31 | XR_ITS ---
EXAMINATION: XR CHEST CLINICAL INFORMATION: Cough COMPARISON: 07/21/2020 TECHNIQUE: Frontal view of the chest was obtained. FINDINGS: Normal symmetric lung volumes. No parenchymal consolidation. No pleural effusion. No pneumothorax. Cardiomediastinal silhouette and pulmonary vascularity are within normal limits. No acute osseous abnormalities. XR/XR chest 1V IMPRESSION: No acute findings.
[2020-12-31 15:20] VITALS: BMI 22.1
[2020-12-31 15:37] VITALS: BP 125/85; PULSE 76; RESP 14; TEMP 36.4; O2SAT 96
[2020-12-31 15:48] LABS: Appearance Urine CLEAR; Color Urine STRAW; Glucose Urine UA NEG (NEG); Leukocyte Esterase Urine NEG (NEG); Nitrite Urine NEG (NEG); Specific Gravity - Urine <= 1.005 (1.005-1.025); UACC Culture Trigger NO; Urine Blood TRACE (NEG); Urine Ketones NEG (NEG); Urine Protein NEG (NEG-TRACE)
--- NOTE | 2020-12-31 15:48 | ED_ITS ---
HPI - General Adult General Chief complaint: General Medical Stated complaint: Sore throat/Bodyaches Time Seen by Provider: 12/31/20 15:16 Source: patient Mode of arrival: ambulatory Limitations: no limitations History of Present Illness HPI narrative: 55 yo female with history of non small cell lung cancer s/p radi ation chemotherapy now in remission, poorly controlled DM, fibrolyalgia with chronic pain, gastritis, opiate use disorder, hx UTI, chronic abdominal pain who presents to the ER with generalized weakness, fatigue, muscle aches and sore throat for the last 2 days. She has no known sick contacts. She is fully vaccinated against COVID-19. She is eating and drinking less than usual but is tolerating p.o.. She has muscle soreness in her abdomen but no abdominal pain. No nausea vomiting or diarrhea. She reports some back pain when she urinates and moves. Denies any trauma. She is not coughing or having any shortness of breath, or chest pain. MD complaint: Body aches and general weakness Onset (ago): day(s) (To) Severity: moderate Quality: aching Pain Consistency: constant Relieving factors: none Exacerbating factors: movement Associated symptoms: diaphoresis, headaches, loss of appetite, malaise and weakness Treatments prior to arrival: none Related Data Home Medications Medication Instructions Recorded Confirmed alprazolam 1 mg tablet 1 mg PO TID PRN 12/17/19 08/18/20 clonidine HCl 0.1 mg tablet 0.2 mg PO BEDTIME PRN 12/17/19 08/18/20 hydroxyzine pamoate 50 mg capsule 50 mg PO Q8H PRN 12/17/19 08/18/20 mesalamine 800 mg tablet,delayed 1,600 mg PO TID 12/17/19 08/18/20 release venlafaxine 150 mg 150 mg PO DAILY 03/08/20 08/18/20 capsule,extended release 24 hr zolpidem 10 mg tablet 10 mg PO BEDTIME PRN 03/08/20 08/18/20 bupropion HCl 150 mg tablet,12 hr 300 mg PO DAILY 05/27/20 08/18/20 sustained-release gabapentin 300 mg capsule 1 cap PO TID PRN 07/21/20 08/18/20 insulin glargine U-300 conc 300 25 unit SUBCUT BEDTIME ml 08/18/20 08/18/20 unit/mL (1.5 mL) subcutaneous pen (Toujeo SoloStar U-300 Insulin) Previous Rx's Medication Instructions Recorded docusate sodium 100 mg capsule 100 mg PO BID #30 cap 07/19/20 (Colace) blood sugar diagnostic (FreeStyle #150 ea 07/21/20 Lite Strips) dicyclomine 10 mg capsule 10 mg PO QIDACHS 30 Days #120 cap 07/23/20 ondansetron HCl 4 mg tablet 4 mg PO Q8H #50 tab 08/05/20 (Zofran) scopolamine base 1 mg over 3 days 1 patch TRANSDERMAL Q3D #5 ea 08/05/20 transdermal patch Novolog Flexpen U-100 Insulin 100 See Rx Instructions SUBCUT .5 08/18/20 unit/mL (3 mL) subcutaneous times a day 30 Days #15 ml NS (insulin aspart U-100) levetiracetam 500 mg tablet 500 mg PO BID #180 tab 09/30/20 Allergies Allergy/AdvReac Type Severity Reaction Status Date / Time acetaminophen [Tylenol] AdvReac Unknown Abdominal Verified 07/15/20 10:16 Pain ibuprofen AdvReac Unknown Abdominal Verified 07/15/20 10:16 Pain senna AdvReac Unknown Headache Verified 07/15/20 10:16 Review of Systems Review of Systems: Constitutional: No Fever, No Chills ENT/Mouth: No sore throat, No Rhinorrhea, No Swallowing Difficulty Cardiovascular: + Chest Pain, No SOB, No Orthopnea, No Edema Respiratory: No Cough, No Sputum, No Wheezing, No dyspnea Gastrointestinal: + Nausea, No Vomiting, No Diarrhea, No abdominal Pain Genitourinary: No Dysuria, No Urinary Frequency, No Hematuria Musculoskeletal: + joint pain,+ Myalgias Skin: No Skin Lesions, No rash Neuro: + Weakness, No Numbness, No Dizziness, +Headache Psych: No Anxiety/Panic, + Depression Heme/Lymph: No Bruising, No Lymphadenopathy Endocrine: No Polyuria, No Polydipsia PMFSH Past Medical History Medical History (Updated 12/31/20 @ 17:37 by DARYA Berkowitz) Adrenal insufficiency due to cancer therapy Aftercare following left shoulder joint replacement surgery Arthritis Asthma Colitis COPD (chronic obstructive pulmonary disease) Depression Diabetes type 2, uncontrolled Fibromyalgia History of lung cancer Hypothyroidism Multinodular goiter Newly diagnosed diabetes Non-small cell carcinoma of left lung, stage 4 Opioid abuse Opioid use disorder Pancreatitis (~02/2018) Radiation-induced esophagitis Subclinical hyperthyroidism Surgical History History of History of cholecystectomy (~12/02/08) History of endometrial ablation (~07/25/06) History of esophageal dilatation (~02/24/18) History of esophagogastroduodenoscopy (EGD) (~09/04/19) Hx of blepharoplasty (~2018) Hx of shoulder surgery (~2014) Family History Family History Father Pancreatic cancer Mother Diabetes Brother Diabetes Sister Diabetes Social History Social History Household Members: Family Housing: House Do you presently have visiting nurse or other home services: Yes (Ronnie, 24) Alcohol intake: never Patient Tobacco Use Status: Current someday Tobacco user Cigarettes Per Day: 1 Years Smoked: 45 Second Hand Smoke Exposure: No Advance Directives: No Advance Directives Information Provided: No Advance Directives Date on File: 05/12/20 Patient : No service: No Current occupational status: disabled Physical Exam Vital Signs: Vital Signs: Last Vital Signs Temp 97.9 F 12/31/20 16:57 Pulse 80 12/31/20 16:57 Resp 16 12/31/20 16:57 BP 107/59 L 12/31/20 16:57 Pulse Ox 99 12/31/20 16:57 Body Mass Index 22.1 Appearance: Tired appearing but alert and awake. Pale. Oriented X3. No acute distress. Eyes: Pupils equal, round and reactive to light. ENT: Pharynx normal. Neck: Normal inspection. Neck supple. CVS: Normal heart rate and rhythm. Pulses normal. Respiratory: No respiratory distress. Breath sounds normal. Abdomen: Soft and nontender. +BS x4 Skin: Skin warm and dry. Normal skin color. Normal skin turgor. No rashes. Extremities: No lower extremity edema. Neuro: Oriented X 3. No motor deficit. No sensory deficit. Course Course Course Narrative: 55-year-old female with a history of lung cancer in remission, opioid use disorder, fibromyalgia with chronic pain, colitis, gastritis, dysphagia, diabetes, history UTI who presents to the ER with general malaise and not feeling well. She also has a sore throat and body aches. She is vaccinated for COVID. She is nontoxic appearing and normal vital signs on arrival. Will get basic lab workup, chest x-ray, COVID swab. Reevaluation(s) Reevaluation #1: Lab workup is unremarkable, no leukocytosis. UA is negative. COVID is negative. Chest x-ray is clear. She is resting comfortably. Her vital signs remained stable and her exam is unremarkable. She is most likely experiencing an acute viral syndrome, supportive care discussed with the patient. Recommended [id number] Tylenol and Motrin as needed for aches an d pains. She reports she cannot take anything [id number] due to ?her oncologist will not allow it. Intra hurts her to follow-up with her primary care doctor and oncologist for further recommendations. Stable for discharge home. Medical Decision Making Lab Data Result diagrams: 12/31/20 16:02 12/31/20 16:02 Labs: Lab Results 12/31/20 12/31/20 12/31/20 Range/Units 15:42 15:58 16:02 WBC 5.8 (4.8-10.8) X10*3/uL RBC 3.82 L (4.20-5.50) X10*6/uL Hgb 11.2 L (12.0-16.0) g/dl Hct 33.5 L (37-47) % MCV 87.7 (80-98) fL MCH 29.3 (27.0-33.0) pg MCHC 33.4 (31.0-35.0) g/dl RDW 14.3 (11.0-16.0) % Plt Count 173 (160-400) X10*3/uL MPV 12.4 H (9.4-12.3) fL Immature Gran % (Auto) 0.5 H (0.0-0.4) % Neut % (Auto) 57.5 (45-73) % Lymph % (Auto) 28.1 (20-40) % [place] % (Auto) 7.4 (2-11) % Eos % (Auto) 5.5 H (0-4) % Baso % (Auto) 1.0 (0-2) % Lymph # (Auto) 1.6 (1.2-4.9) X10*3/uL [place] # (Auto) 0.4 (0.1-1.2) X10*3/uL Eos # (Auto) 0.3 (0.0-0.4) X10*3/uL Baso # (Auto) 0.1 (0.0-0.2) X10*3/uL Abs Immat Gran (auto) 0.03 (0.00-0.03) X10*3/uL Absolute Neuts (auto) 3.4 (2.0-8.3) X10*3/uL Absolute Nucleated RBC 0.000 (0.0-0.012) X10*3/uL Nucleated RBC % (auto) 0.0 (0.0-0.2) /100WBC Sodium (135-145) mmol/L Potassium (3.3-5.1) mmol/L Chloride (96-108) mmol/L Carbon Dioxide (22-29) mmol/L Anion Gap (12-20) BUN (9-16) mg/dL Creatinine (0.5-1.4) mg/dL Estim Creat Clear Calc Estimated GFR POC Glucose 177 H (60-115) mg/dL Random Glucose (60-115) mg/dL Calcium (8.4-10.2) mg/dL Urine Color STRAW Urine Appearance CLEAR Urine pH 6.0 (5.0-8.0) Ur Specific [place] <= 1.005 (1.005-1.025) Urine Protein NEG (NEG-TRACE) MG/DL Urine Glucose (UA) NEG (NEG) MG/DL Urine Ketones NEG (NEG) MG/DL Urine Blood TRACE (NEG) Urine Nitrite NEG (NEG) Ur Leukocyte Esterase NEG (NEG) Urine RBC 1-4 (0) /HPF Urine WBC 1-4 (0-4) /HPF Ur Squamous Epith Cells 1+ /LPF Uric Acid Crystals 1+ /LPF Urine Bacteria 1+ /LPF COVID-19 (O[facility]IEL) (Negative) COVID-19 Clin Com S. pyogenes GrpA BROOKS (Negative) 12/31/20 12/31/20 12/31/20 Range/Units 16:02 16:03 16:14 WBC (4.8-10.8) X10*3/uL RBC (4.20-5.50) X10*6/uL Hgb (12.0-16.0) g/dl Hct (37-47) % MCV (80-98) fL MCH (27.0-33.0) pg MCHC (31.0-35.0) g/dl RDW (11.0-16.0) % Plt Count (160-400) X10*3/uL MPV (9.4-12.3) fL Immature Gran % (Auto) (0.0-0.4) % Neut % (Auto) (45-73) % Lymph % (Auto) (20-40) % [place] % (Auto) (2-11) % Eos % (Auto) (0-4) % Baso % (Auto) (0-2) % Lymph # (Auto) (1.2-4.9) X10*3/uL [place] # (Auto) (0.1-1.2) X10*3/uL Eos # (Auto) (0.0-0.4) X10*3/uL Baso # (Auto) (0.0-0.2) X10*3/uL Abs Immat Gran (auto) (0.00-0.03) X10*3/uL Absolute Neuts (auto) (2.0-8.3) X10*3/uL Absolute Nucleated RBC (0.0-0.012) X10*3/uL Nucleated RBC % (auto) (0.0-0.2) /100WBC Sodium 138 (135-145) mmol/L Potassium 4.0 (3.3-5.1) mmol/L Chloride 107 (96-108) mmol/L Carbon Dioxide 24 (22-29) mmol/L Anion Gap 11 L (12-20) BUN 7 L (9-16) mg/dL Creatinine 0.77 (0.5-1.4) mg/dL Estim Creat Clear Calc 68.3 Estimated GFR > 60 POC Glucose (60-115) mg/dL Random Glucose 180 H (60-115) mg/dL Calcium 8.7 (8.4-10.2) mg/dL Urine Color Urine Appearance Urine pH (5.0-8.0) Ur Specific [place] (1.005-1.025) Urine Protein (NEG-TRACE) MG/DL Urine Glucose (UA) (NEG) MG/DL Urine Ketones (NEG) MG/DL Urine Blood (NEG) Urine Nitrite (NEG) Ur Leukocyte Esterase (NEG) Urine RBC (0) /HPF Urine WBC (0-4) /HPF Ur Squamous Epith Cells /LPF Uric Acid Crystals /LPF Urine Bacteria /LPF COVID-19 ([facility]IEL) Negative (Negative) COVID-19 Clin Com See Note S. pyogenes GrpA BROOKS Negative (Negative) 12/31/20 Range/Units 17:01 WBC (4.8-10.8) X10*3/uL RBC (4.20-5.50) X10*6/uL Hgb (12.0-16.0) g/dl Hct (37-47) % MCV (80-98) fL MCH (27.0-33.0) pg MCHC (31.0-35.0) g/dl RDW (11.0-16.0) % Plt Count (160-400) X10*3/uL MPV (9.4-12.3) fL Immature Gran % (Auto) (0.0-0.4) % Neut % (Auto) (45-73) % Lymph % (Auto) (20-40) % [place] % (Auto) (2-11) % Eos % (Auto) (0-4) % Baso % (Auto) (0-2) % Lymph # (Auto) (1.2-4.9) X10*3/uL [place] # (Auto) (0.1-1.2) X10*3/uL Eos # (Auto) (0.0-0.4) X10*3/uL Baso # (Auto) (0.0-0.2) X10*3/uL Abs Immat Gran (auto) (0.00-0.03) X10*3/uL Absolute Neuts (auto) (2.0-8.3) X10*3/uL Absolute Nucleated RBC (0.0-0.012) X10*3/uL Nucleated RBC % (auto) (0.0-0.2) /100WBC Sodium (135-145) mmol/L Potassium (3.3-5.1) mmol/L Chloride (96-108) mmol/L Carbon Dioxide (22-29) mmol/L Anion Gap (12-20) BUN (9-16) mg/dL Creatinine (0.5-1.4) mg/dL Estim Creat Clear Calc Estimated GFR POC Glucose 174 H (60-115) mg/dL Random Glucose (60-115) mg/dL Calcium (8.4-10.2) mg/dL Urine Color Urine Appearance Urine pH (5.0-8.0) Ur Specific [place] (1.005-1.025) Urine Protein (NEG-TRACE) MG/DL Urine Glucose (UA) (NEG) MG/DL Urine Ketones (NEG) MG/DL Urine Blood (NEG) Urine Nitrite (NEG) Ur Leukocyte Esterase (NEG) Urine RBC (0) /HPF Urine WBC (0-4) /HPF Ur Squamous Epith Cells /LPF Uric Acid Crystals /LPF Urine Bacteria /LPF COVID-19 ([facility]EL) (Negative) COVID-19 Clin Com S. pyogenes GrpA BROOKS (Negative) Discharge Plan Discharge Clinical Impression: Acute viral syndrome Patient Disposition: Home, Self-Care Instructions: Viral Syndrome (ED) Additional Instructions: Your lab workup today was unremarkable. Your chest x-ray was clear. Urine negative for COVID. Your vital signs were normal. He most likely are experiencing an acute viral syndrome, you will feel better with rest and time. Take [id number] cold and flu medications as needed for your symptoms. Rest and drink plenty of fluid, stay hydrated Stick to a bland diet where not feeling well. Follow-up with her doctor next week If you develop new or worsening symptoms call 911 or come back to the ER for further evaluation. Prescriptions: No Action (DME) FreeStyle Lite Strips Strip See Rx Instructions .MEDSUPPLY Qty: 150 RF: 6 bupropion HCl 150 mg tablet sustained-release 12 hr 300 mg PO DAILY RF: 0 clonidine HCl 0.1 mg tablet 0.2 mg PO BEDTIME PRN (Reason: Anxiety) RF: 0 alprazolam 1 mg tablet 1 mg PO TID PRN (Reason: Anxiety) RF: 0 hydroxyzine pamoate 50 mg capsule 50 mg PO Q8H PRN (Reason: Anxiety) RF: 0 mesalamine 800 mg tablet,delayed release (DR/EC) 1,600 mg PO TID RF: 0 ondansetron HCl [Zofran] 4 mg Tablet 4 mg PO Q8H Qty: 50 RF: 1 scopolamine base 1 mg over 3 days Patch 3 Day 1 patch TRANSDERMAL Q3D Qty: 5 RF: 2 levetiracetam 500 mg tablet 500 mg PO BID Qty: 180 RF: 2 docusate sodium [Colace] 100 mg capsule 100 mg PO BID Qty: 30 RF: 0 gabapentin 300 mg capsule 1 cap PO TID PRN (Reason: Pain) RF: 0 dicyclomine 10 mg Capsule 10 mg PO QIDACHS 30 Days Qty: 120 RF: 0 venlafaxine 150 mg capsule,extended release 24hr 150 mg PO DAILY RF: 0 zolpidem 10 mg tablet 10 mg PO BEDTIME PRN (Reason: Sleep) RF: 0 insulin aspart U-100 [Novolog Flexpen U-100 Insulin] 100 unit/mL (3 mL) insulin pen See Rx Instructions subcut .5 times a day 30 Days Qty: 15 RF: 4 Toujeo SoloStar U-300 Insulin 300 unit/mL (1.5 mL) insulin pen 25 unit subcut BEDTIME RF: 0 Interventions: ED Discharge Assessment Last Done: 12/31/20 17:43 Discharge Date/Time: 12/31/20 17:44
[2020-12-31 15:58] LABS: Squamous Epithelial Cell Urine 1+ /LPF
[2020-12-31 15:59] LABS: Bacteria Urine 1+ /LPF
[2020-12-31 16:00] LABS: Uric Acid Crystals Urine 1+ /LPF
[2020-12-31 16:07] LABS: Glucose, Whole Blood 177 mg/dL (60-115)
[2020-12-31 16:07] LABS: MANUAL DIFF FLAG NO
[2020-12-31 16:14] LABS: Basophils Absolute Auto 0.1 X10*3/uL (0.0-0.2); Eosinophils Absolute Auto 0.3 X10*3/uL (0.0-0.4); Eosinophils Percent Auto 5.5 % (0-4); Hematocrit 33.5 % (37-47); Hemoglobin 11.2 g/dl (12.0-16.0); Imm Gran Abs Auto 0.03 X10*3/uL (0.00-0.03); Imm Gran Pct Auto 0.5 % (0.0-0.4); Lymphocytes Absolute Auto 1.6 X10*3/uL (1.2-4.9); Lymphocytes Percent Auto 28.1 % (20-40); Mean Corpuscular HGB Conc 33.4 g/dl (31.0-35.0); Mean Corpuscular Hemoglobin 29.3 pg (27.0-33.0); Mean Corpuscular Volume 87.7 fL (80-98); Mean Platelet Volume 12.4 fL (9.4-12.3); Monocytes Absolute Auto 0.4 X10*3/uL (0.1-1.2); Monocytes Percent Auto 7.4 % (2-11); Neutrophils Absolute Auto 3.4 X10*3/uL (2.0-8.3); Neutrophils Percent Auto 57.5 % (45-73); Platelet Count 173 X10*3/uL (160-400); Red Blood Count 3.82 X10*6/uL (4.20-5.50); Red Cell Distribution Width 14.3 % (11.0-16.0); White Blood Count 5.8 X10*3/uL (4.8-10.8)
[2020-12-31 16:31] LABS: COVID-19 Test Negative (Negative)
[2020-12-31 16:38] LABS: Anion Gap 11 (12-20); Blood Urea Nitrogen 7 mg/dL (9-16); Calcium 8.7 mg/dL (8.4-10.2); Carbon Dioxide 24 mmol/L (22-29); Chloride 107 mmol/L (96-108); Creatinine Clr Calc Pharmacy 68.3; Estimated Glomerular Filt Rate > 60; Glucose Random 180 mg/dL (60-115); Sodium 138 mmol/L (135-145)
[2020-12-31 16:39] LABS: IDNOW Serial# 9DD0AD1C; Strep A Nucleic Acid Negative (Negative)
[2020-12-31 16:57] VITALS: BP 107/59; PULSE 80; RESP 16; TEMP 36.6; O2SAT 99
[2020-12-31 17:04] LABS: Glucose, Whole Blood 174 mg/dL (60-115)
== END 2020-12-31 17:44 | disposition home or self-care (01) ==
PROVIDERS: Physician Assistant; Emergency Provider Emergency Medicine; PCP Internal Medicine
DX: B34.9 Viral infection, unspecified (principal); J02.8 Acute pharyngitis due to other specified organisms; M79.10 Myalgia, unspecified site; Z79.899 Other long term (current) drug therapy; Z20.822 Contact with and (suspected) exposure to COVID-19
CPT/HCPCS: 36415; 71045; 80048; 81001; 82947; 85025; 87635; 87651; 99283; 99284

== ENCOUNTER 2021-01-31 13:47 | Emergency (ER) | payer OTHER, SELFPAY ==
--- NOTE | ~2021-01-31 | CT_ITS ---
EXAMINATION: CT CERVICAL SPINE CLINICAL INFORMATION: Reason for Exam headache, blurred vision, neck pain COMPARISON: No prior CT available, TECHNIQUE: Computed axial sagittal and coronal images acquired using department's standard protocol. This CT examination was performed using dose optimization techniques as appropriate, variously including the following: *Automated exposure control *Adjustment of mA and/or kV according to patient size (this includes techniques or standardized protocols for targeted exams where dose is matched to indication/reason for exam; i.e. extremities or head) *Use of iterative reconstruction technique CONTRAST: None DLP: 987 mGy-cm FINDINGS: SKULL BASE: Visualized structures at skull base are normal, Included facial sinuses are clear, CERVICAL VERTEBRAE: Seven cervical vertebrae identified maintaining proper height and alignment, DISCS: C1-C2: There is no CT evidence of significant osseous narrowing of the central canal or neural foramen. C2-C3: There is no CT evidence of significant osseous narrowing of the central canal or neural foramen. C3-C4: There is no CT evidence of significant osseous narrowing of the central canal or neural foramen. C4-C5: There is no CT evidence of significant osseous narrowing of the central canal or neural foramen. C5-C6: There is no CT evidence of significant osseous narrowing of the central canal or neural foramen. C6-C7: There is no CT evidence of significant osseous narrowing of the central canal or neural foramen. C7-T1: There is no CT evidence of significant osseous narrowing of the central canal or neural foramen. PARAVERTEBRAL SOFT TISSUE: Paravertebral soft tissues unremarkable, there are emphysematous changes at lung bases. CT/CT cervical spine wo con IMPRESSION: No CT evidence of a fracture. No evidence of central or foraminal stenosis. There are emphysematous changes at lung apices.
--- NOTE | ~2021-01-31 | CT_ITS ---
CT head/brain wo con CLINICAL INFORMATION: Reason for Exam headache, blurred vision COMPARISON: No prior CT scan available for comparison. TECHNIQUE: Department standard protocol. This CT examination was performed using dose optimization techniques as appropriate, variously including the following: *Automated exposure control *Adjustment of mA and/or kV according to patient size (this includes techniques or standardized protocols for targeted exams where dose is matched to indication/reason for exam; i.e. extremities or head) *Use of iterative reconstruction technique DLP: 625 mGy-cm FINDINGS: CEREBRAL HEMISPHERES: There is no evidence of intra-axial or extra-axial mass, hemorrhage or acute infarct. BRAIN PARENCHYMA: Normal sheth-white matter differentiation. SUBDURAL SPACE: No bleed. BASAL GANGLIA AND PINEAL GLAND: Unremarkable VENTRICLES: Symmetric and normal in size. CEREBELLUM AND BRAINSTEM: No space-occupying mass, hemorrhage or acute infarct. CEREBELLOPONTINE ANGLES: No lesion found. ORBITS: No intraorbital mass. VESSELS: Unremarkable SKULL BASE: Unremarkable INCLUDED SINUSES AT SKULL BASE: Clear SKULL AND SKIN: No fracture or bone lesion found. CT/CT head/brain wo con IMPRESSION: No CT evidence of intracranial space-occupying mass, bleed or infarct.
[2021-01-31 15:31] VITALS: BP 85/57; PULSE 76; RESP 18; TEMP 36.6; O2SAT 98; BMI 21.2
[2021-01-31] MEDS: Ondansetron ODT 4 MG TAB.RAPDIS TRANSLINGU (15:37)
--- NOTE | 2021-01-31 16:59 | ED_ITS ---
HPI - Headache General Chief Complaint: Headache Stated Complaint: migrane Time Seen by Provider: 01/31/21 16:59 Source: patient Mode of arrival: ambulatory Limitations: no limitations History of Present Illness HPI Narrative: 55-year-old female past medical history significant for diabetes, orthostatic hypotension, asthma, radiation induced esophagitis, colitis on mesalamine, hyperthyroidism, opiate use disorder followed by pain management, fibromyalgia, migranes adrenal insufficiency on chronic prednisione,lung adenocarcinoma status post radiation presents to the emergency department with complaints of headache, sensitivity to light, vomiting, nausea X1 week progressively worsening. She tells me that her headache is all over her head, she cannot pinpoint exactly where hurts, she also notes that she is having blurred vision, and photophobia. She states this is her typical migrane. She tells me it also hurts when she touches her head. She states she never gets headaches ever. She also reports nausea and vomiting x3 today. She describes her dizziness as both the room spinning, and not being able to walk without falling over. She tells me she feels horrible. She also tells me she feels like everything hurts. She also tells me she has had subjective fevers, and chills. She denies back pain, urinary symptoms, chest pain, shortness of breath, weakness. Patient reports previous history of IV drug abuse. MD elicited complaint: headache and migraine Onset (ago): week(s) (1) Onset description: suddenly Location: other (diffuse ) Severity: severe Pain scale (0-10): 10 Quality & Timing: other (tells me she dosent know how to describe it ) Exacerbating factors: none, movement of head/neck and light Relieving factors: nothing Associated symptoms: fever (subjective ), nausea, vomiting (vomiting bile. ), photophobia and malaise Treatments prior to arrival: none Related Data Home Medications Medication Instructions Recorded Confirmed alprazolam 1 mg tablet 1 mg PO TID PRN 12/17/19 08/18/20 clonidine HCl 0.1 mg tablet 0.2 mg PO BEDTIME PRN 12/17/19 08/18/20 hydroxyzine pamoate 50 mg capsule 50 mg PO Q8H PRN 12/17/19 08/18/20 mesalamine 800 mg tablet,delayed 1,600 mg PO TID 12/17/19 08/18/20 release venlafaxine 150 mg 150 mg PO DAILY 03/08/20 08/18/20 capsule,extended release 24 hr zolpidem 10 mg tablet 10 mg PO BEDTIME PRN 03/08/20 08/18/20 bupropion HCl 150 mg tablet,12 hr 300 mg PO DAILY 05/27/20 08/18/20 sustained-release gabapentin 300 mg capsule 1 cap PO TID PRN 07/21/20 08/18/20 insulin glargine U-300 conc 300 25 unit SUBCUT BEDTIME ml 08/18/20 08/18/20 unit/mL (1.5 mL) subcutaneous pen (Toujeo SoloStar U-300 Insulin) Previous Rx's Medication Instructions Recorded docusate sodium 100 mg capsule 100 mg PO BID #30 cap 07/19/20 (Colace) blood sugar diagnostic (FreeStyle #150 ea 07/21/20 Lite Strips) dicyclomine 10 mg capsule 10 mg PO QIDACHS 30 Days #120 cap 07/23/20 ondansetron HCl 4 mg tablet 4 mg PO Q8H #50 tab 08/05/20 (Zofran) scopolamine base 1 mg over 3 days 1 patch TRANSDERMAL Q3D #5 ea 08/05/20 transdermal patch Novolog Flexpen U-100 Insulin 100 See Rx Instructions SUBCUT .5 08/18/20 unit/mL (3 mL) subcutaneous times a day 30 Days #15 ml NS (insulin aspart U-100) levetiracetam 500 mg tablet 500 mg PO BID #180 tab 09/30/20 metoclopramide HCl 10 mg tablet 10 mg PO Q6H PRN #7 tab 01/31/21 (Reglan) Allergies Allergy/AdvReac Type Severity Reaction Status Date / Time acetaminophen [Tylenol] AdvReac Unknown Abdominal Verified 01/31/21 15:30 Pain ibuprofen AdvReac Unknown Abdominal Verified 01/31/21 15:30 Pain senna AdvReac Unknown Headache Verified 01/31/21 15:30 Review of Systems Review of Systems: Constitutional : No Weight loss, No Fever, No Chills, No Fatigue, + Malaise ENT/Mouth : No sore throat, No Rhinorrhea Eyes: No Eye Pain, No Swelling, No Redness, + vision changes Cardiovascular : No Chest Pain, No SOB, No Dyspnea on Exertion, No Orthopnea, No Edema, No Palpitations Respiratory : No Cough, No Sputum, No Wheezing Gastrointestinal : + Nausea, + Vomiting, No Diarrhea, No Constipation, No abdominal Pain, No Hematochezia, No Melena Genitourinary : No Dysuria, No Urinary Frequency, No Hematuria, Musculoskeletal : No joint pain, No Myalgias, No Joint Swelling Skin : No Skin Lesions, No rash Neuro : + Weakness, No Numbness, + Dizziness, + Headache All other systems reviewed and are negative [facility], [facility] Past Medical History Attestation statement: The following information was validated with the patient. Source: old records reviewed and nursing notes reviewed Medical History Adrenal insufficiency due to cancer therapy Aftercare following left shoulder joint replacement surgery Arthritis Asthma Colitis COPD (chronic obstructive pulmonary disease) Depression Diabetes type 2, uncontrolled Fibromyalgia History of lung cancer Hypothyroidism Multinodular goiter Newly diagnosed diabetes Non-small cell carcinoma of left lung, stage 4 Opioid abuse Opioid use disorder Pancreatitis (~02/2018) Radiation-induced esophagitis Subclinical hyperthyroidism Surgical History History of History of cholecystectomy (~12/02/08) History of endometrial ablation (~07/25/06) History of esophageal dilatation (~02/24/18) History of esophagogastroduodenoscopy (EGD) (~09/04/19) Hx of blepharoplasty (~2018) Hx of shoulder surgery (~2014) Family History Family History Father Pancreatic cancer Mother Diabetes Brother Diabetes Sister Diabetes Social History Social History Household Members: Family Housing: House Do you presently have visiting nurse or other home services: Yes (Ronnie, Pedro) Alcohol intake: never Patient Tobacco Use Status: Current someday Tobacco user Cigarettes Per Day: 1 Years Smoked: 45 Second Hand Smoke Exposure: No Advance Directives: Yes Advance Directives on File: Yes Advance Directives Date on File: 05/12/20 service: No Current occupational status: disabled Physical Exam Vital Signs: Vital Signs: Last Vital Signs Temp 98.3 F 01/31/21 19:51 Pulse 74 01/31/21 19:58 Resp 16 01/31/21 19:51 BP 134/64 01/31/21 19:58 Pulse Ox 98 01/31/21 19:51 Body Mass Index 21.2 Appearance: Alert.? Oriented X3.? +Patient appears uncomfortable. +Patient is wearing sunglasses due to photophobia. Head: Normocephalic, atraumatic, no step-offs or deformities. +Patient reports pain with palpation all over her head. + Pain to palpation to b/l temporal arteries, pulsating Eyes: Pupils equal, round and reactive to light.? ENT: Pharynx normal.? Neck: Normal inspection.? Neck supple.? No meningeal signs, negative Brudzinski/Kernig CVS: Normal heart rate and rhythm.? Pulses normal.? Respiratory: No respiratory distress.? Breath sounds normal.? Abdomen: Soft and nontender.? Skin: Skin warm and dry.? Pallor noted throughout.? Normal skin turgor.? Extremities: No lower extremity edema.? No calf ttp. 5/5 strength to bilateral upper and lower extremities Back: No midline tenderness, no C-spine tenderness, full range of motion, no CVA tenderness bilaterally Neuro: Oriented X 3.? No motor deficit.? No sensory deficit. + patient states she is dizzy with walking, so she asked me to sit down during the exam. Normal hand segment assembler, finger to nose, heel to almazan. Course Reevaluation(s) Reevaluation #1: No leukocytosis, baseline anemia noted, platelets are noted to be lower than on her previous visit. No acute electrolyte abnormalities noted. COVID negative. CRP noted to be slightly elevated, ESR is within normal limits, unlikely that this is temporal arteritis. For this reason I will not start patient on prednisone. Head/brain/cervical spine CT negative. No intracranial hemorrhages or strokes noted. Upon re-evaluation patient still reports a 10/10 headache. Ordered a second liter of fluids. Time: 20:13 Reevaluation #2: Upon re-evaluation patient states that her symptoms have improved it is now 6/10. I have ordered 10 mg of IV Decadron. Prior to patient's discharge I would like to see her ambulate with a steady gait. 2 L of fluids is finishing at this time. Will re-evaluate patient prior to discharge. Time: 21:12 Reevaluation #3: At this time patient is ambulating from her stretcher to the bathroom with a steady gait, she is not falling to the sides and she no longer feels dizzy. Patient refusing decadron. She states her dizziness has completely resolved, her nausea is gone. And she tells me she just has a bit of a headache. Patient tells me that Dilaudid is the only medication that works. I will give Dilaudid, as patient has a ride home. Patient tells me she feels much better. Patient is safe for discharge home with PCP follow-up. Time: 22:34 MDM - Headache MDM Narrative Medical decision making narrative: [id number] 55-year-old female past medical history significant for diabetes, orthostatic hypotension, asthma, radiation induced esophagitis, colitis on mesalamine, hyperthyroidism, opiate use disorder followed by pain management, fibromyalgia, adrenal insufficiency on chronic prednisione,lung adenocarcinoma status post radiation presents to the emergency department with complaints of generalized severe headache w/ photophobia (like previous headaches), scalp pain/tenderness, sensitivity to light, blurred vision, vomiting, nausea X1 week Upon physical examination patient appears uncomfortable, she is lying on the stretcher with sunglasses on and tells me that the light is bothering her. S1- S2 appreciated free of murmurs. Lungs are clear to auscultation. Abdomen soft nontender nondistended. Head is normocephalic, atraumatic no step-offs or deformities, she reports pain with palpation of scalp. There is tenderness to bilateral temporal arteries, and arteries are noted to be pulsating. Pupils equal round and reactive to light. Extraocular movements intact. 5/5 strength upper and lower extremities. No focal neuro deficits. Normal finger to nose, heel to almazan. Asked patient to ambulate, she was able to ambulate for about 10 ft, then she reports dizziness, and tells me she wants to sit down. Plan at this time is to obtain basic labs, point of care, orthostatic vital signs, EKG, CRP, ESR, drug screen, magnesium, TSH, UA. I do not suspect that this is a posterior infarct since patient has no focal neuro deficits, is able to ambulate, [id number], [id number] is normal, and patient demonstrates 5/5 strength upper and lower extremities. I will rule out ICH, orthostatic hypotension, temporal arteritis. This is likley a complex migrane Medical Records Attestation: I reviewed the patient's medical records. Lab Data Attestation: I reviewed the patient's lab results. Result diagrams: 01/31/21 17:20 01/31/21 17:20 Labs: Lab Results 01/31/21 01/31/21 01/31/21 Range/Units 17:20 17:20 17:20 WBC 6.6 (4.8-10.8) X10*3/uL RBC 3.81 L (4.20-5.50) X10*6/uL Hgb 11.2 L (12.0-16.0) g/dl Hct 34.9 L (37.0-47.0) % MCV 91.6 (80.0-98.0) fL MCH 29.4 (27.0-33.0) pg MCHC 32.1 (31.0-35.0) g/dl RDW 13.3 (11.0-16.0) % Plt Count 145 L (160-400) X10*3/uL MPV 12.9 H (9.4-12.3) fL Immature Gran % (Auto) 0.3 (0.0-0.4) % Neut % (Auto) 41.7 L (45-73) % Lymph % (Auto) 44.9 H (20-40) % Jewell % (Auto) 7.1 (2-11) % Eos % (Auto) 5.4 H (0-4) % Baso % (Auto) 0.6 (0-2) % Lymph # (Auto) 3.0 (1.2-4.9) X10*3/uL Jewell # (Auto) 0.5 (0.1-1.2) X10*3/uL Eos # (Auto) 0.4 (0.0-0.4) X10*3/uL Baso # (Auto) 0.0 (0.0-0.2) X10*3/uL Abs Immat Gran (auto) 0.02 (0.00-0.03) X10*3/uL Absolute Neuts (auto) 2.8 (2.0-8.3) x10*3/uL Absolute Nucleated RBC 0.000 (0.0-0.012) X10*3/uL Nucleated RBC % (auto) 0.0 (0.0-0.2) /100WBC Smear Tech's Comments Not Reportable ESR (0-20) MM/HR Sodium 141 (135-145) mmol/L Potassium 3.9 (3.3-5.1) mmol/L Chloride 109 H (96-108) mmol/L Carbon Dioxide 24 (22-29) mmol/L Anion Gap 12 (12-20) BUN 4 L (9-16) mg/dL Creatinine 0.79 (0.5-1.4) mg/dL Estim Creat Clear Calc 66.6 Estimated GFR > 60 Random Glucose 149 H (60-115) mg/dL Calcium 9.1 D (8.4-10.2) mg/dL Magnesium 1.9 (1.6-2.6) mg/dL Total Bilirubin 0.2 (0.0-1.0) mg/dL AST 31 D (5-31) U/L ALT 39 H (0-31) U/L Alkaline Phosphatase 93 (39-117) U/L C-Reactive Protein (< or = 0.50) mg/dL Total Protein 6.3 L (6.5-8.0) g/dL Albumin 3.8 (3.5-5.0) g/dL TSH 0.33 (0.32-4.0) uIU/mL COVID-19 ([facility]) (Negative) COVID-19 Clin Com 01/31/21 01/31/21 01/31/21 Range/Units 17:20 17:20 17:20 WBC (4.8-10.8) X10*3/uL RBC (4.20-5.50) X10*6/uL Hgb (12.0-16.0) g/dl Hct (37.0-47.0) % MCV (80.0-98.0) fL MCH (27.0-33.0) pg MCHC (31.0-35.0) g/dl RDW (11.0-16.0) % Plt Count (160-400) X10*3/uL MPV (9.4-12.3) fL Immature Gran % (Auto) (0.0-0.4) % Neut % (Auto) (45-73) % Lymph % (Auto) (20-40) % Jewell % (Auto) (2-11) % Eos % (Auto) (0-4) % Baso % (Auto) (0-2) % Lymph # (Auto) (1.2-4.9) X10*3/uL Jewell # (Auto) (0.1-1.2) X10*3/uL Eos # (Auto) (0.0-0.4) X10*3/uL Baso # (Auto) (0.0-0.2) X10*3/uL Abs Immat Gran (auto) (0.00-0.03) X10*3/uL Absolute Neuts (auto) (2.0-8.3) x10*3/uL Absolute Nucleated RBC (0.0-0.012) X10*3/uL Nucleated RBC % (auto) (0.0-0.2) /100WBC Smear Tech's Comments ESR 13 (0-20) MM/HR Sodium (135-145) mmol/L Potassium (3.3-5.1) mmol/L Chloride (96-108) mmol/L Carbon Dioxide (22-29) mmol/L Anion Gap (12-20) BUN (9-16) mg/dL Creatinine (0.5-1.4) mg/dL Estim Creat Clear Calc Estimated GFR Random Glucose (60-115) mg/dL Calcium (8.4-10.2) mg/dL Magnesium (1.6-2.6) mg/dL Total Bilirubin (0.0-1.0) mg/dL AST (5-31) U/L ALT (0-31) U/L Alkaline Phosphatase (39-117) U/L C-Reactive Protein 0.70 H (< or = 0.50) mg/dL Total Protein (6.5-8.0) g/dL Albumin (3.5-5.0) g/dL TSH (0.32-4.0) uIU/mL COVID-19 ([facility]) Negative (Negative) COVID-19 Clin Com See Note Imaging Data CT scan - head: Attestation: I personally reviewed and interpreted this imaging study as follows: Radiologist's impression: CT/CT head/brain wo con IMPRESSION: No CT evidence of intracranial space-occupying mass, bleed or infarct. CT neck : Attestation: I personally reviewed and interpreted this imaging study as follows: Radiologist's impression: DISCS: C1-C2: There is no CT evidence of significant osseous narrowing of the central canal or neural foramen. C2-C3: There is no CT evidence of significant osseous narrowing of the central canal or neural foramen. C3-C4: There is no CT evidence of significant osseous narrowing of the central canal or neural foramen. C4-C5: There is no CT evidence of significant osseous narrowing of the central canal or neural foramen. C5-C6: There is no CT evidence of significant osseous narrowing of the central canal or neural foramen. C6-C7: There is no CT evidence of significant osseous narrowing of the central canal or neural foramen. C7-T1: There is no CT evidence of significant osseous narrowing of the central canal or neural foramen. PARAVERTEBRAL SOFT TISSUE: Paravertebral soft tissues unremarkable, there are emphysematous changes at lung bases. CT/CT cervical spine wo con IMPRESSION: No CT evidence of a fracture. ? No evidence of central or foraminal stenosis. ? There are emphysematous changes at lung apices. ECG Data Attestation: I personally reviewed and interpreted this ECG as follows: ECG interpretation date: 01/31/21 ECG interpretation time: 18:50 Prior ECG tracings: available for review Interpretation: Ventricular rate 59, VT normal, QRS normal, QT/QTC normal. EKG shows sinus bradycardia with sinus arrhythmia. No ST elevations or inversions. No acute ischemia. No acute changes when compared to EKG from August 17, 2020. Critical Care Time Critical Care Time Critical Care Time: No Discharge Plan Discharge Clinical Impression: Migraine headache, Nausea, Vomiting Patient Disposition: Home, Self-Care Instructions: Migraine Headache (ED), Acute Nausea and Vomiting (ED) Additional Instructions: Take your medications as prescribed. Reglan is for headaches. Drink plenty of fluids COVID - today. CT of head/brain was negative Follow-up with your primary care provider this week. Return to the emergency department with new or worsening symptoms. Such as nausea, vomiting, abdominal pain, chest pain, shortness of breath, fevers, chills, headaches, vision changes. In case of emergency call 911 Prescriptions: New metoclopramide HCl [Reglan] 10 mg tablet 10 mg PO Q6H PRN (Reason: nausea and vomiting) Qty: 7 RF: 0 No Action (DME) FreeStyle Lite Strips Strip See Rx Instructions .MEDSUPPLY Qty: 150 RF: 6 bupropion HCl 150 mg tablet sustained-release 12 hr 300 mg PO DAILY RF: 0 clonidine HCl 0.1 mg tablet 0.2 mg PO BEDTIME PRN (Reason: Anxiety) RF: 0 alprazolam 1 mg tablet 1 mg PO TID PRN (Reason: Anxiety) RF: 0 hydroxyzine pamoate 50 mg capsule 50 mg PO Q8H PRN (Reason: Anxiety) RF: 0 mesalamine 800 mg tablet,delayed release (DR/EC) 1,600 mg PO TID RF: 0 ondansetron HCl [Zofran] 4 mg Tablet 4 mg PO Q8H Qty: 50 RF: 1 scopolamine base 1 mg over 3 days Patch 3 Day 1 patch TRANSDERMAL Q3D Qty: 5 RF: 2 levetiracetam 500 mg tablet 500 mg PO BID Qty: 180 RF: 2 docusate sodium [Colace] 100 mg capsule 100 mg PO BID Qty: 30 RF: 0 gabapentin 300 mg capsule 1 cap PO TID PRN (Reason: Pain) RF: 0 dicyclomine 10 mg Capsule 10 mg PO QIDACHS 30 Days Qty: 120 RF: 0 venlafaxine 150 mg capsule,extended release 24hr 150 mg PO DAILY RF: 0 zolpidem 10 mg tablet 10 mg PO BEDTIME PRN (Reason: Sleep) RF: 0 insulin aspart U-100 [Novolog Flexpen U-100 Insulin] 100 unit/mL (3 mL) insulin pen See Rx Instructions subcut .5 times a day 30 Days Qty: 15 RF: 4 Toujeo SoloStar U-300 Insulin 300 unit/mL (1.5 mL) insulin pen 25 unit subcut BEDTIME RF: 0 Referrals: Henny Carbajal DO [Primary Care Provider] - 2 days Interventions: ED Discharge Assessment Last Done: 01/31/21 23:25 Discharge Date/Time: 01/31/21 23:26
--- NOTE | 2021-01-31 17:03 | ECG_ITS ---
Test Reason : DIZZINESS Blood Pressure : / mmHG Vent. Rate : 059 BPM Atrial Rate : 059 BPM P-R Int : 166 ms QRS Dur : 072 ms QT Int : 416 ms P-R-T Axes : 065 038 037 degrees QTc Int : 411 ms Sinus bradycardia with sinus arrhythmia Otherwise normal ECG When compared with ECG of 17-AUG-2020 07:51, Vent. rate has decreased BY [address] no longer elevated in Inferior leads Referred By: Humphrey Plunkett Electronically Signed By:JACOBY BLACKWOOD MD
[2021-01-31 17:36] LABS: Eosinophils Absolute Auto 0.4 X10*3/uL (0.0-0.4); Hemoglobin 11.2 g/dl (12.0-16.0); Red Cell Distribution Width 13.3 % (11.0-16.0); SCAN SMEAR FLAG 1
[2021-01-31 17:37] LABS: Basophils Percent Auto 0.6 % (0-2); Eosinophils Percent Auto 5.4 % (0-4); Hematocrit 34.9 % (37.0-47.0); Imm Gran Abs Auto 0.02 X10*3/uL (0.00-0.03); Imm Gran Pct Auto 0.3 % (0.0-0.4); Lymphocytes Percent Auto 44.9 % (20-40); Mean Corpuscular HGB Conc 32.1 g/dl (31.0-35.0); Mean Corpuscular Hemoglobin 29.4 pg (27.0-33.0); Mean Corpuscular Volume 91.6 fL (80.0-98.0); Mean Platelet Volume 12.9 fL (9.4-12.3); Monocytes Absolute Auto 0.5 X10*3/uL (0.1-1.2); Monocytes Percent Auto 7.1 % (2-11); Neutrophils Absolute Auto 2.8 x10*3/uL (2.0-8.3); Neutrophils Percent Auto 41.7 % (45-73); Platelet Count 145 X10*3/uL (160-400); Red Blood Count 3.81 X10*6/uL (4.20-5.50); White Blood Count 6.6 X10*3/uL (4.8-10.8)
[2021-01-31 17:38] LABS: PLT ABN DIST 1
[2021-01-31 17:49] LABS: Magnesium 1.9 mg/dL (1.6-2.6)
[2021-01-31 17:54] LABS: Alanine Aminotransferase 39 U/L (0-31); Albumin Level 3.8 g/dL (3.5-5.0); Alkaline Phosphatase 93 U/L (39-117); Anion Gap 12 (12-20); Aspartate Amino Transferase 31 U/L (5-31); Bilirubin Total 0.2 mg/dL (0.0-1.0); Blood Urea Nitrogen 4 mg/dL (9-16); Calcium 9.1 mg/dL (8.4-10.2); Carbon Dioxide 24 mmol/L (22-29); Chloride 109 mmol/L (96-108); Creatinine Clr Calc Pharmacy 66.6; Estimated Glomerular Filt Rate > 60; Glucose Random 149 mg/dL (60-115); Potassium 3.9 mmol/L (3.3-5.1); Sodium 141 mmol/L (135-145); Total Protein 6.3 g/dL (6.5-8.0)
[2021-01-31] MEDS: 0.9 % Sodium Chloride 1,000 ML 999 ML IV ×2 (18:09→20:14)
[2021-01-31] MEDS: Metoclopramide HCl 10 MG/2 ML VIAL IVPUSH (18:10)
[2021-01-31] MEDS: Meclizine HCl 25 MG TABLET PO (18:10)
[2021-01-31 18:11] LABS: TSH reflex Free T4 0.33 uIU/mL (0.32-4.0)
[2021-01-31 18:39] LABS: Erythrocyte Sedimentation Rate 13 MM/HR (0-20)
[2021-01-31 19:16] LABS: COVID-19 Test Negative (Negative); IDNOW Serial# 08D9AD1C
[2021-01-31 19:51] VITALS: BP 131/60; BP 135/63; PULSE 63; PULSE 74; RESP 16; TEMP 36.8; O2SAT 98
[2021-01-31 19:57] VITALS: BP 132/70; PULSE 71
[2021-01-31 19:58] VITALS: BP 134/64; PULSE 74
[2021-01-31] MEDS: Ketorolac Tromethamine 15 MG/ML VIAL 30 MG IVPUSH (20:01)
[2021-01-31] MEDS: diphenhydrAMINE HCL 50 MG/ML VIAL IVPUSH (20:02)
--- NOTE | 2021-01-31 20:10 | PC.NURSE ---
This RN to bedside, VSS, orthostatic VS assessed and WNL. Yin LACKEY is aware. Per pt, pt's stomach and dizziness feel improved but headache persists. per Yin, plan for additional liter of fluids. Pt medicated per MAY. Stretcher in low locked position, rails raised, pt remains visible to staff.
--- NOTE | 2021-01-31 22:20 | PC.NURSE ---
This RN at bedside to medicate with Decadron. Per pt, I am not allowed to take steroids because of my DM. Pt refusing Decadron. Primary RN aware.
[2021-01-31] MEDS: HYDROmorphone HCl 0.5 MG/0.5 ML SYRINGE IVPUSH (23:05)
== END 2021-01-31 23:26 | disposition home or self-care (01) ==
PROVIDERS: Physician Assistant; Emergency Provider Emergency Medicine; PCP Internal Medicine
DX: G43.909 Migraine, unspecified, not intractable, without status migrainosus (principal); R11.2 Nausea with vomiting, unspecified; R53.83 Other fatigue; Z20.822 Contact with and (suspected) exposure to COVID-19; Z79.899 Other long term (current) drug therapy
CPT/HCPCS: 36415; 70450; 72125; 80053; 83735; 84443; 85025; 85652; 86140; 87635; 93005; 96361; 96374; 96375; 99284; J1170; J1200; J1885; J2765

== ENCOUNTER 2021-02-09 05:58 | Emergency (ER) | payer OTHER, SELFPAY ==
--- NOTE | ~2021-02-09 | CT_ITS ---
EXAMINATION: CT HEAD WITHOUT CONTRAST CLINICAL INFORMATION: Headache. COMPARISON: None TECHNIQUE: Contiguous axial imaging was performed from the skull base to vertex without intravenous administration of contrast. This CT examination was performed using dose optimization techniques as appropriate, variously including the following: *Automated exposure control *Adjustment of mA and/or kV according to patient size (this includes techniques or standardized protocols for targeted exams where dose is matched to indication/reason for exam; i.e. extremities or head) *Use of iterative reconstruction technique DLP: 590 mGy-cm FINDINGS: There is no evidence of acute intracranial hemorrhage or territorial infarction. No abnormal mass effect or midline shift is seen. [place] to white matter differentiation is well preserved. No extra-axial fluid collections are identified. The ventricles are normal in size. There is no abnormal attenuation within the brain parenchyma. The osseous structures and soft tissues are normal. The mastoid air cells and visualized portions of the paranasal sinuses are well aerated. CT/CT head/brain wo con IMPRESSION: No acute intracranial process seen.
[2021-02-09 06:03] VITALS: BP 151/97; PULSE 115; RESP 18; TEMP 36.9; O2SAT 98; BMI 21.2
[2021-02-09 06:33] LABS: COVID-19 Test Negative (Negative)
--- NOTE | 2021-02-09 07:16 | ED.GENADULT ---
HPI - General Adult General Chief complaint: General Medical Stated complaint: migraine Time Seen by Provider: 02/09/21 06:05 Source: patient and family Mode of arrival: ambulatory Limitations: no limitations History of Present Illness HPI narrative: 55-year-old female with past medical history significant for diabetes (poorly controlled due to patient being noncompliant), fibromyalgia with chronic migraines, lung cancer status post radiation chemotherapy patient now in remission, patient been getting her normal regular migraine more often for the past few months, patient had multiple ED visits for migraines, came in today with migraine over 1 week that is worsening over the past 3 days, patient also has generalized body ache, complaining of joint pain, migraine described as constant, severe 12/18, associated with nausea and vomiting and photophobia, worsening by noises and light, nothing relieves the headache. Related Data Home Medications Medication Instructions Recorded Confirmed alprazolam 1 mg tablet 1 mg PO TID PRN 12/17/19 08/18/20 clonidine HCl 0.1 mg tablet 0.2 mg PO BEDTIME PRN 12/17/19 08/18/20 hydroxyzine pamoate 50 mg capsule 50 mg PO Q8H PRN 12/17/19 08/18/20 mesalamine 800 mg tablet,delayed 1,600 mg PO TID 12/17/19 08/18/20 release venlafaxine 150 mg 150 mg PO DAILY 03/08/20 08/18/20 capsule,extended release 24 hr zolpidem 10 mg tablet 10 mg PO BEDTIME PRN 03/08/20 08/18/20 bupropion HCl 150 mg tablet,12 hr 300 mg PO DAILY 05/27/20 08/18/20 sustained-release gabapentin 300 mg capsule 1 cap PO TID PRN 07/21/20 08/18/20 insulin glargine U-300 conc 300 25 unit SUBCUT BEDTIME ml 08/18/20 08/18/20 unit/mL (1.5 mL) subcutaneous pen (Toujeo SoloStar U-300 Insulin) Previous Rx's Medication Instructions Recorded docusate sodium 100 mg capsule 100 mg PO BID #30 cap 07/19/20 (Colace) blood sugar diagnostic (FreeStyle #150 ea 07/21/20 Lite Strips) dicyclomine 10 mg capsule 10 mg PO QIDACHS 30 Days #120 cap 07/23/20 ondansetron HCl 4 mg tablet 4 mg PO Q8H #50 tab 08/05/20 (Zofran) scopolamine base 1 mg over 3 days 1 patch TRANSDERMAL Q3D #5 ea 08/05/20 transdermal patch Novolog Flexpen U-100 Insulin 100 See Rx Instructions SUBCUT .5 08/18/20 unit/mL (3 mL) subcutaneous times a day 30 Days #15 ml NS (insulin aspart U-100) levetiracetam 500 mg tablet 500 mg PO BID #180 tab 09/30/20 metoclopramide HCl 10 mg tablet 10 mg PO Q6H PRN #7 tab 01/31/21 (Reglan) oxycodone 5 mg tablet 5 mg PO BID PRN #5 tab 02/09/21 Allergies Allergy/AdvReac Type Severity Reaction Status Date / Time acetaminophen [Tylenol] AdvReac Unknown Abdominal Verified 01/31/21 15:30 Pain ibuprofen AdvReac Unknown Abdominal Verified 01/31/21 15:30 Pain senna AdvReac Unknown Headache Verified 01/31/21 15:30 Review of Systems Review of Systems: All other systems are reviewed and are negative Constitutional: Reports as per HPI and Reports no additional constitutional complaints Eyes: Reports as per HPI and Reports no additional eye complaints Reports system reviewed and no additional complaints, except as documented Cardiovascular: Reports as per HPI and Reports no additional cardiovascular complaints Respiratory: Reports as per HPI and Reports no additional respiratory complaints Gastrointestinal: Reports as per HPI and Reports no additional gastrointestinal complaints Genitourinary: Reports no additional female genitourinary complaints Musculoskeletal: Reports no additional musculoskeletal complaints Skin/Breast: Reports system reviewed and no additional complaints, except as docu Psychiatric: Reports no additional psychiatric complaints Endocrine: Reports no additional endocrine complaints Hematologic/Lymphatic: Reports no additional hematologic/lymphatic complaints Allergic/Immunologic: Reports no additional allergic/immunologic complaints Reports system reviewed and no additional complaints, except as documented and Reports Abnormal speech present PMFSH Past Medical History Medical History Adrenal insufficiency due to cancer therapy Aftercare following left shoulder joint replacement surgery Arthritis Asthma Colitis COPD (chronic obstructive pulmonary disease) Depression Diabetes type 2, uncontrolled Fibromyalgia History of lung cancer Hypothyroidism Multinodular goiter Newly diagnosed diabetes Non-small cell carcinoma of left lung, stage 4 Opioid abuse Opioid use disorder Pancreatitis (~02/2018) Radiation-induced esophagitis Subclinical hyperthyroidism Surgical History History of History of cholecystectomy (~12/02/08) History of endometrial ablation (~07/25/06) History of esophageal dilatation (~02/24/18) History of esophagogastroduodenoscopy (EGD) (~09/04/19) Hx of blepharoplasty (~2018) Hx of shoulder surgery (~2014) Family History Family History Father Pancreatic cancer Mother Diabetes Brother Diabetes Sister Diabetes Social History Social History Household Members: Family Housing: House Do you presently have visiting nurse or other home services: Yes (Ronnie, 24) Alcohol intake: never Patient Tobacco Use Status: Current someday Tobacco user Cigarettes Per Day: 1 Years Smoked: 45 Second Hand Smoke Exposure: No Advance Directives: Yes Advance Directives on File: Yes Advance Directives Date on File: 05/12/20 Patient : No service: No Current occupational status: disabled Physical Exam Vital Signs: Vital Signs: Last Vital Signs Temp 97.6 F 02/09/21 07:30 Pulse 104 H 02/09/21 07:30 Resp 18 02/09/21 07:30 BP 139/97 H 02/09/21 07:30 Pulse Ox 99 02/09/21 07:30 BMI result Body Mass Index 21.2 Vital signs have been reviewed as appeared to be correct. Blood pressure normal. Heart rate normal. Respiration rate normal. Temperature normal. Oxygen saturation normal. Appearance: Alert. Oriented X3. No acute distress. Head: Normal external exam. Normocephalic. Atraumatic. No Gaines signs noted. No raccoon eyes noted Eyes: PERRLA. EOMI. Conjunctiva and sclera normal. Eyelids normal. ENT: TM's Normal. Pharynx normal. Uvula midline. Moist mucous membranes. No trismus noted. No drooling noted. No muffled voice noted. Neck: Normal inspection. Neck supple. FROM. No adenopathy. Thyroid Normal. No meningeal signs. No neck mass noted. CVS: Normal heart rate and rhythm. Heart sound normal. No murmurs noted. Pulses normal throughout. Respiratory: No respiratory distress. Painless inspiration. Breath sounds normal. No wheezes/rales/rhonchi noted. Chest nontender. No accessory muscle usage noted or decreased air movement noted. Abdomen: Soft and nontender. Bowel sounds normal in all 4 quadrants. No distention noted. No organomegaly noted. No visible injury noted. Back: No CVA tenderness. Full range of motion noted. Skin: Skin warm and dry. Normal skin color. Normal skin turgor. No rashes/lesions/lacerations noted. Extremities: No lower extremity edema. Extremities exhibit normal range of motion. Extremities nontender. Neuro: Oriented X 3. Cranial nerve exam: II-XII are grossly intact No motor deficit. No sensory deficit. Reflexes normal. Course Course Course Narrative: Assessment and plan. 55-year-old female with history of fibromyalgia and migraine came in with a headache for the last 3 days, patient had previous similar headaches in the past, treated with Dilaudid the only working medication for her, patient received Dilaudid in the emergency department feeling better patient is asking for few pills for narcotic to control her headache at home. Patient was instructed to follow-up with her PCP/neurology if her symptoms persist. Medical Decision Making Lab Data Lab results reviewed: Yes I reviewed the patient's lab results. Result diagrams: 02/09/21 07:21 12 07:21 Labs: Lab Results 02/09/21 02/09/21 12 Range/Units 06:13 07:21 07:21 WBC 6.6 (4.8-10.8) X10*3/uL RBC 4.18 L (4.20-5.50) X10*6/uL Hgb 12.0 (12.0-16.0) g/dl Hct 36.8 L (37.0-47.0) % MCV 88.0 (80.0-98.0) fL MCH 28.7 (27.0-33.0) pg MCHC 32.6 (31.0-35.0) g/dl RDW 12.7 (11.0-16.0) % Plt Count 164 (160-400) X10*3/uL MPV 12.6 H (9.4-12.3) fL Immature Gran % (Auto) 0.2 (0.0-0.4) % Neut % (Auto) 46.9 (45-73) % Lymph % (Auto) 41.0 H (20-40) % [place] % (Auto) 7.3 (2-11) % Eos % (Auto) 3.8 (0-4) % Baso % (Auto) 0.8 (0-2) % Lymph # (Auto) 2.7 (1.2-4.9) X10*3/uL [place] # (Auto) 0.5 (0.1-1.2) X10*3/uL Eos # (Auto) 0.3 (0.0-0.4) X10*3/uL Baso # (Auto) 0.1 (0.0-0.2) X10*3/uL Abs Immat Gran (auto) 0.01 (0.00-0.03) X10*3/uL Absolute Neuts (auto) 3.1 (2.0-8.3) x10*3/uL Absolute Nucleated RBC 0.000 (0.0-0.012) X10*3/uL Nucleated RBC % (auto) 0.0 (0.0-0.2) /100WBC Sodium 140 (135-145) mmol/L Potassium 4.4 (3.3-5.1) mmol/L Chloride 108 (96-108) mmol/L Carbon Dioxide 22 (22-29) mmol/L Anion Gap 14 (12-20) BUN 8 L (9-16) mg/dL Creatinine 0.75 (0.5-1.4) mg/dL Estim Creat Clear Calc 70.0 Estimated GFR > 60 Random Glucose 253 H (60-115) mg/dL Calcium 9.1 (8.4-10.2) mg/dL COVID-19 (OZIEL) Negative (Negative) COVID-19 Clin Com See Note Imaging Data CT scan - head: Radiologist's impression: No acute intracranial process seen. Discharge Plan Discharge Clinical Impression: Fibromyalgia, Tension headache Patient Disposition: Home, Self-Care Instructions: Tension Headache (ED) Prescriptions: New oxycodone 5 mg tablet 5 mg PO BID PRN (Reason: pain) Qty: 5 RF: 0 No Action (DME) FreeStyle Lite Strips Strip See Rx Instructions .MEDSUPPLY Qty: 150 RF: 6 bupropion HCl 150 mg tablet sustained-release 12 hr 300 mg PO DAILY RF: 0 clonidine HCl 0.1 mg tablet 0.2 mg PO BEDTIME PRN (Reason: Anxiety) RF: 0 alprazolam 1 mg tablet 1 mg PO TID PRN (Reason: Anxiety) RF: 0 hydroxyzine pamoate 50 mg capsule 50 mg PO Q8H PRN (Reason: Anxiety) RF: 0 mesalamine 800 mg tablet,delayed release (DR/EC) 1,600 mg PO TID RF: 0 ondansetron HCl [Zofran] 4 mg Tablet 4 mg PO Q8H Qty: 50 RF: 1 scopolamine base 1 mg over 3 days Patch 3 Day 1 patch TRANSDERMAL Q3D Qty: 5 RF: 2 levetiracetam 500 mg tablet 500 mg PO BID Qty: 180 RF: 2 docusate sodium [Colace] 100 mg capsule 100 mg PO BID Qty: 30 RF: 0 gabapentin 300 mg capsule 1 cap PO TID PRN (Reason: Pain) RF: 0 dicyclomine 10 mg Capsule 10 mg PO QIDACHS 30 Days Qty: 120 RF: 0 metoclopramide HCl [Reglan] 10 mg tablet 10 mg PO Q6H PRN (Reason: nausea and vomiting) Qty: 7 RF: 0 venlafaxine 150 mg capsule,extended release 24hr 150 mg PO DAILY RF: 0 zolpidem 10 mg tablet 10 mg PO BEDTIME PRN (Reason: Sleep) RF: 0 insulin aspart U-100 [Novolog Flexpen U-100 Insulin] 100 unit/mL (3 mL) insulin pen See Rx Instructions subcut .5 times a day 30 Days Qty: 15 RF: 4 Toujeo SoloStar U-300 Insulin 300 unit/mL (1.5 mL) insulin pen 25 unit subcut BEDTIME RF: 0 Referrals: Physician,Unknown J [Primary Care Provider] - 2 days
[2021-02-09 07:24] LABS: MANUAL DIFF FLAG NO
[2021-02-09] MEDS: ondansetron HCL 4 MG/2 ML VIAL IVPUSH (07:26)
[2021-02-09] MEDS: HYDROmorphone HCl 1 MG/ML SYRINGE IVPUSH ×2 (07:26→09:42)
[2021-02-09] MEDS: 0.9 % Sodium Chloride 1,000 ML 999 ML IVCONT (07:26)
[2021-02-09 07:27] LABS: Basophils Absolute Auto 0.1 X10*3/uL (0.0-0.2); Basophils Percent Auto 0.8 % (0-2); Eosinophils Absolute Auto 0.3 X10*3/uL (0.0-0.4); Eosinophils Percent Auto 3.8 % (0-4); Hematocrit 36.8 % (37.0-47.0); Imm Gran Abs Auto 0.01 X10*3/uL (0.00-0.03); Imm Gran Pct Auto 0.2 % (0.0-0.4); Lymphocytes Absolute Auto 2.7 X10*3/uL (1.2-4.9); Mean Corpuscular HGB Conc 32.6 g/dl (31.0-35.0); Mean Corpuscular Hemoglobin 28.7 pg (27.0-33.0); Mean Platelet Volume 12.6 fL (9.4-12.3); Monocytes Absolute Auto 0.5 X10*3/uL (0.1-1.2); Monocytes Percent Auto 7.3 % (2-11); Neutrophils Absolute Auto 3.1 x10*3/uL (2.0-8.3); Neutrophils Percent Auto 46.9 % (45-73); Platelet Count 164 X10*3/uL (160-400); Red Blood Count 4.18 X10*6/uL (4.20-5.50); Red Cell Distribution Width 12.7 % (11.0-16.0); White Blood Count 6.6 X10*3/uL (4.8-10.8)
[2021-02-09 07:30] VITALS: BP 139/97; PULSE 104; RESP 18; TEMP 36.4; O2SAT 99
[2021-02-09 07:50] LABS: Anion Gap 14 (12-20); Blood Urea Nitrogen 8 mg/dL (9-16); Calcium 9.1 mg/dL (8.4-10.2); Carbon Dioxide 22 mmol/L (22-29); Chloride 108 mmol/L (96-108); Estimated Glomerular Filt Rate > 60; Glucose Random 253 mg/dL (60-115); Potassium 4.4 mmol/L (3.3-5.1); Sodium 140 mmol/L (135-145)
== END 2021-02-09 10:40 | disposition home or self-care (01) ==
PROVIDERS: Emergency Provider Emergency Medicine
DX: M79.7 Fibromyalgia (principal); G44.209 Tension-type headache, unspecified, not intractable; Z20.822 Contact with and (suspected) exposure to COVID-19; E11.9 Type 2 diabetes mellitus without complications; F17.200 Nicotine dependence, unspecified, uncomplicated; F11.20 Opioid dependence, uncomplicated; Z79.4 Long term (current) use of insulin; Z79.899 Other long term (current) drug therapy; Z85.118 Personal history of other malignant neoplasm of bronchus and lung
CPT/HCPCS: 36415; 70450; 80048; 85025; 87635; 96361; 96374; 96375; 96376; 99284; J1170; J2405

== ENCOUNTER 2021-02-09 21:22 | Observation (INO) | payer OTHER, SELFPAY ==
--- NOTE | 2021-02-09 | ECG_ITS ---
Test Reason : TACHYCARDIA Blood Pressure : / mmHG Vent. Rate : 129 BPM Atrial Rate : 129 BPM P-R Int : 138 ms QRS Dur : 066 ms QT Int : 310 ms P-R-T Axes : 056 049 045 degrees QTc Int : 454 ms Sinus tachycardia Possible Left atrial enlargement Nonspecific ST abnormality Abnormal ECG When compared with ECG of 31-JAN-2021 18:50, Vent. rate has increased BY [address] changes more prominent Referred By: Generic ED Physician Electronically Signed By:YUE WATTS
--- NOTE | ~2021-02-09 | CT_ITS ---
EXAMINATION: CT ABDOMEN AND PELVIS WITH CONTRAST CLINICAL INFORMATION: Diffuse abdominal pain, nausea/vomiting. COMPARISON: CT abdomen/pelvis dated from 07/20/2020. TECHNIQUE: Multidetector volumetric images were obtained from the superior aspect of the liver through the pubic symphysis following administration 85 mL of Omnipaque 350 intravenous contrast. Sagittal and coronal reformatted images were obtained on the technologist's workstation. Oral contrast: No This CT examination was performed using dose optimization techniques as appropriate, variously including the following: *Automated exposure control *Adjustment of mA and/or kV according to patient size (this includes techniques or standardized protocols for targeted exams where dose is matched to indication/reason for exam; i.e. extremities or head) *Use of iterative reconstruction technique DLP: 504 mGy-cm FINDINGS: LUNG BASES: There is a 0.4 cm subpleural pulmonary nodule in the right lower lobe (4:19). On prior examinations, this area was out of the [id number]. There are subsegmental atelectasis without focal airspace opacities or pleural effusions. LIVER, GALLBLADDER, AND BILIARY TREE: There is decreased hepatic parenchymal attenuation, most consistent with hepatic steatosis. Otherwise, the liver is normal in size and shape without focal abnormalities. Cholecystectomy. There is unchanged prominence of the common bile duct measuring up to 0.7 cm which is likely related with post cholecystectomy state. There is no intrahepatic biliary ductal dilatation. PANCREAS: Atrophic without focal abnormalities. The main pancreatic duct is nondilated. There is no peripancreatic free fluid or fat stranding. SPLEEN: Unremarkable. ADRENAL GLANDS: Unremarkable. KIDNEYS AND URETERS: The kidneys are normal in size, shape, and attenuation. No hydronephrosis, hydroureter, or calculi seen. No perinephric stranding. BLADDER: Unremarkable. GASTROINTESTINAL TRACT: Moderate size hiatal hernia. The majority of the small bowel is filled with fluid but without significant wall thickening or surrounding fat stranding. The appendix is unremarkable. There is moderate stool burden throughout the colon. No evidence of pericolic inflammatory changes. No evidence of bowel obstruction. ABDOMINAL WALL: No significant hernia is appreciated. LYMPH NODES: There are a few prominent mesenteric lymph nodes without significant change. There is no lymphadenopathy by size criteria. VASCULAR: Scattered atherosclerotic disease. The abdominal aorta is of normal diameter. PELVIC VISCERA: Unremarkable. OSSEOUS STRUCTURES: No acute or aggressive osseous findings. Thoracolumbar spondylosis. CT/CT abdomen pelvis w con IMPRESSION: The small bowel is mildly prominent and fluid-filled which could be seen in the setting of gastroenteritis in the appropriate clinical context. There is however no significant associated wall thickening or fat stranding. Moderate stool burden possibly suggesting constipation/slow transit. Hepatic steatosis. Unchanged prominence of the common bile duct following cholecystectomy. Incidentally noted is made of a 0.4 cm right lower lobe pulmonary nodule for which no follow-up is recommended for Fleischner Society guidelines. 2017 Fleischner Society Recommendations for Lung Nodule(s): Follow-Up based on size (average of long- and short-axis diameters). Use most suspicious nodule for followup. Single Solid low risk nodule < 6 mm: No routine follow-up imaging is recommended in low risk and high risk patients. These guidelines do not apply to patients younger than 35 years, immunocompromised patients, and patients with cancer. F/u in patients with significant comorbidities as clinically warranted. For lung cancer screening, adhere to Lung-RADS guidelines. Reference: Radiology. 2017 Sameer; 284(1):228-243
[2021-02-09 21:29] VITALS: BP 148/96; PULSE 129; RESP 20; TEMP 36.5; O2SAT 100; BMI 21.4
--- NOTE | 2021-02-09 21:39 | ED.ABDPAIN ---
HPI - Abdominal Pain General Chief Complaint: Abdominal Pain Stated Complaint: ABDOMINAL PAIN X 1 HOUR` Time Seen by Provider: 02/09/21 21:30 Source: patient and EMS Mode of arrival: EMS History of Present Illness HPI narrative: 55-year-old female with a PMHx DM, orthostatic hypotension, asthma, radiation induced esophagitis, colitis on mesalamine, hypothyroid, opiate use disorder, fibromyalgia, adrenal insufficiency, lung adenocarcinoma s/p radiation therapy in remission, gastritis, chronic abdominal pain, presenting to the ED via EMS complaining of diffuse abdominal pain, nausea, vomiting x1 hour. Admits symptoms to similar symptoms in the past with abdominal muscle spasming. Denies fever, chills, diarrhea/constipation, chest pain, shortness of breath, dysuria/hematuria, melena Of note patient was seen and treated in our emergency department this morning for acute on chronic migraine headache/fibromyalgia MD elicited complaint: abdominal pain Onset (ago): hour(s) Pain Consistency: constant Location: diffuse Severity: severe Quality: cramping Associated symptoms: nausea and vomiting Related Data Home Medications Medication Instructions Recorded Confirmed alprazolam 1 mg tablet 1 mg PO TID PRN 12/17/19 08/18/20 clonidine HCl 0.1 mg tablet 0.2 mg PO BEDTIME PRN 12/17/19 08/18/20 hydroxyzine pamoate 50 mg capsule 50 mg PO Q8H PRN 12/17/19 08/18/20 mesalamine 800 mg tablet,delayed 1,600 mg PO TID 12/17/19 08/18/20 release venlafaxine 150 mg 150 mg PO DAILY 03/08/20 08/18/20 capsule,extended release 24 hr zolpidem 10 mg tablet 10 mg PO BEDTIME PRN 03/08/20 08/18/20 bupropion HCl 150 mg tablet,12 hr 300 mg PO DAILY 05/27/20 08/18/20 sustained-release gabapentin 300 mg capsule 1 cap PO TID PRN 07/21/20 08/18/20 insulin glargine U-300 conc 300 25 unit SUBCUT BEDTIME ml 08/18/20 08/18/20 unit/mL (1.5 mL) subcutaneous pen (Toujeo SoloStar U-300 Insulin) Previous Rx's Medication Instructions Recorded docusate sodium 100 mg capsule 100 mg PO BID #30 cap 07/19/20 (Colace) blood sugar diagnostic (FreeStyle #150 ea 07/21/20 Lite Strips) dicyclomine 10 mg capsule 10 mg PO QIDACHS 30 Days #120 cap 07/23/20 ondansetron HCl 4 mg tablet 4 mg PO Q8H #50 tab 08/05/20 (Zofran) scopolamine base 1 mg over 3 days 1 patch TRANSDERMAL Q3D #5 ea 08/05/20 transdermal patch Novolog Flexpen U-100 Insulin 100 See Rx Instructions SUBCUT .5 08/18/20 unit/mL (3 mL) subcutaneous times a day 30 Days #15 ml NS (insulin aspart U-100) levetiracetam 500 mg tablet 500 mg PO BID #180 tab 09/30/20 metoclopramide HCl 10 mg tablet 10 mg PO Q6H PRN #7 tab 01/31/21 (Reglan) oxycodone 5 mg tablet 5 mg PO BID PRN #5 tab 02/09/21 Allergies Allergy/AdvReac Type Severity Reaction Status Date / Time acetaminophen [Tylenol] AdvReac Unknown Abdominal Verified 01/31/21 15:30 Pain ibuprofen AdvReac Unknown Abdominal Verified 01/31/21 15:30 Pain senna AdvReac Unknown Headache Verified 01/31/21 15:30 Physical Exam Vital Signs: Vital Signs: Last Vital Signs Temp 97.6 F 02/09/21 22:33 Pulse 118 H 02/10/21 01:39 Resp 16 02/10/21 01:39 BP 146/98 H 02/10/21 01:39 Pulse Ox 95 02/10/21 01:39 BMI result Body Mass Index 21.4 Const: General: cooperative Orientation/consciousness: patient oriented x3 Limitations: no limitations HENMT: Head: Yes normal to inspection Ears: hearing grossly normal bilaterally General nose exam: Normal external nose present Face and sinus: Yes normal facial exam Eyes: General: appearance normal, both eyes and all related structures EOM: EOMs intact bilaterally Neck: Neck: Yes normal visual inspection and Yes no meningeal signs Resp: Effort & Inspection: normal respiratory effort Auscultation: clear to auscultation bilaterally, no rales, no rhonchi and no wheezes Cardio: Rate: regular rate and tachycardic Heart sounds: S1 normal heart sound present and S2 normal heart sound present GI: Inspection: Yes normal to inspection Palpation (GI): Soft to palpation, Tenderness to palpation present (GI) (diffusely), no guarding and not rigid Skin: Rashes: no rashes Wounds: no wounds Neuro: General: patient oriented x3 and no meningeal signs Gait exam (Neuro): Normal gait present Extrem: General: Yes normal to inspection Course Course Course Narrative: -noted leukocytosis of 14.7 > likely reactive from nausea/vomiting >> noted rise from labs earlier this morning -anion gap of 23 & Lactic acidosis of 4.1 > likely from dehydration rather than severe sepsis. Empiric IV Zosyn ordered. There is also concern for opiate withdrawal -0030--patient requesting pain medication specifically Dilaudid > Toradol, Tylenol, and Benadryl ordered -0050--CT abdomen pelvis w con IMPRESSION: The small bowel is mildly prominent and fluid-filled which could be seen in the setting of gastroenteritis in the appropriate clinical context. There is however no significant associated wall thickening or fat stranding. ? Moderate stool burden possibly suggesting constipation/slow transit. ? Hepatic steatosis. ? Unchanged prominence of the common bile duct following cholecystectomy. ? Incidentally noted is made of a 0.4 cm right lower lobe pulmonary nodule for which no follow-up is recommended for Fleischner Society guidelines. ? -0122--lactic acid with mild improvement to 2.9 after 2L IVF >will give IVF and plan for admission for dehydration and continued tachycardia -0140--patient admitted to hospitalist service for further management MDM - Abdominal Pain MDM Narrative Medical decision making narrative: 55-year-old female with a PMHx DM, orthostatic hypotension, asthma, radiation induced esophagitis, colitis on mesalamine, hypothyroid, opiate use disorder, fibromyalgia, adrenal insufficiency, lung adenocarcinoma s/p radiation therapy in remission, gastritis, chronic abdominal pain, presenting to the ED via EMS complaining of diffuse abdominal pain, nausea, vomiting x1 hour. On exam tachycardic, appears in pain, abdomen soft diffusely tender, no rebound or guarding. Concern for gastroenteritis/gastritis vs patient's acute on chronic abdominal pain vs diverticulitis/appendicitis/pancreatitis. Lower concern for cholecystitis/cholelithiasis or renal stone Plan: Labs, UA, lactic/blood cultures, IVF, symptomatic treatment, +/-CT abdomen/pelvis Differential Diagnosis Differential diagnosis: Likely abdominal pain, constipation, gastroenteritis and gastritis Medical Records Attestation: I reviewed the patient's medical records. Lab Data Result diagrams: 02/09/21 21:53 02/10/21 00:57 Labs: Lab Results 02/09/21 02/09/21 02/09/21 Range/Units 21:53 21:53 21:53 WBC 14.7 H (4.8-10.8) X10*3/uL RBC 5.39 D (4.20-5.50) X10*6/uL Hgb 15.6 D (12.0-16.0) g/dl Hct 48.6 H D (37.0-47.0) % MCV 90.2 (80.0-98.0) fL MCH 28.9 (27.0-33.0) pg MCHC 32.1 (31.0-35.0) g/dl RDW 13.1 (11.0-16.0) % Plt Count 195 (160-400) X10*3/uL MPV 12.2 (9.4-12.3) fL Immature Gran % (Auto) Cancelled Neut % (Auto) Cancelled Lymph % (Auto) Cancelled [place] % (Auto) Cancelled Eos % (Auto) Cancelled Baso % (Auto) Cancelled Lymph # (Auto) Cancelled [place] # (Auto) Cancelled Eos # (Auto) Cancelled Baso # (Auto) Cancelled Abs Immat Gran (auto) Cancelled Absolute Neuts (auto) Cancelled Absolute Nucleated RBC 0.000 (0.0-0.012) X10*3/uL Nucleated RBC % (auto) 0.0 (0.0-0.2) /100WBC Neutrophils % (Manual) 58 (45-73) % Band Neutrophils % 25 H (3-5) % Lymphocytes % (Manual) 9 L (20-40) % Monocytes % (Manual) 3 (2-11) % Eosinophils % (Manual) 1 (0-4) % Metamyelocytes % 3 % Myelocytes % 1 % Abs Neuts (Manual) 12.2 H (2.0-8.3) X10*3/uL Lymphocytes # (Manual) 1.3 (1.2-4.9) X10*3/uL Monocytes # (Manual) 0.4 (0.1-1.2) X10*3/uL Eosinophils # (Manual) 0.1 (0.0-0.4) X10*3/uL Metamyelocytes # 0.4 X10*3/uL Myelocytes # 0.1 X10*/uL Smudge Cells PRESENT Toxic Vacuolation PRESENT Dohle Bodies PRESENT Platelet Estimate SLIGHTLY DECREASED (NORMAL) Large Platelets PRESENT Plt Morphology Comment NORMAL RBC Morphology NOTED Macrocytosis 1+ (5-14) /OIF Tear Drop Cells 1+ (0-2) /OIF [place] Cells 1+ ( /OIF Sodium 141 (135-145) mmol/L Potassium 3.7 (3.3-5.1) mmol/L Chloride 103 (96-108) mmol/L Carbon Dioxide 19 L (22-29) mmol/L Anion Gap 23 H (12-20) BUN 11 (9-16) mg/dL Creatinine 1.06 (0.5-1.4) mg/dL Estim Creat Clear Calc 51.8 Estimated GFR 54 Random Glucose 225 H (60-115) mg/dL Lactic Acid 4.1 H* (0.5-2.0) mmol/L Lactic Acid Fup @ 2Hr (0.5-2.0) mmol/L Calcium 10.1 D (8.4-10.2) mg/dL Magnesium 1.7 (1.6-2.6) mg/dL Total Bilirubin 0.5 (0.0-1.0) mg/dL Direct Bilirubin 0.2 (0.0-0.5) mg/dL AST 27 (5-31) U/L ALT 22 (0-31) U/L Alkaline Phosphatase 128 H D (39-117) U/L Total Protein 8.6 H D (6.5-8.0) g/dL Albumin 4.9 D (3.5-5.0) g/dL Lipase 16 (8-78) U/L 02/10/21 02/10/21 Range/Units 00:57 00:57 WBC (4.8-10.8) X10*3/uL RBC (4.20-5.50) X10*6/uL Hgb (12.0-16.0) g/dl Hct (37.0-47.0) % MCV (80.0-98.0) fL MCH (27.0-33.0) pg MCHC (31.0-35.0) g/dl RDW (11.0-16.0) % Plt Count (160-400) X10*3/uL MPV (9.4-12.3) fL Immature Gran % (Auto) Neut % (Auto) Lymph % (Auto) [place] % (Auto) Eos % (Auto) Baso % (Auto) Lymph # (Auto) [place] # (Auto) Eos # (Auto) Baso # (Auto) Abs Immat Gran (auto) Absolute Neuts (auto) Absolute Nucleated RBC (0.0-0.012) X10*3/uL Nucleated RBC % (auto) (0.0-0.2) /100WBC Neutrophils % (Manual) (45-73) % Band Neutrophils % (3-5) % Lymphocytes % (Manual) (20-40) % Monocytes % (Manual) (2-11) % Eosinophils % (Manual) (0-4) % Metamyelocytes % % Myelocytes % % Abs Neuts (Manual) (2.0-8.3) X10*3/uL Lymphocytes # (Manual) (1.2-4.9) X10*3/uL Monocytes # (Manual) (0.1-1.2) X10*3/uL Eosinophils # (Manual) (0.0-0.4) X10*3/uL Metamyelocytes # X10*3/uL Myelocytes # X10*/uL Smudge Cells Toxic Vacuolation Dohle Bodies Platelet Estimate (NORMAL) Large Platelets Plt Morphology Comment RBC Morphology Macrocytosis /OIF Tear Drop Cells /OIF [place] Cells /OIF Sodium 142 (135-145) mmol/L Potassium 3.4 (3.3-5.1) mmol/L Chloride 111 H (96-108) mmol/L Carbon Dioxide 23 (22-29) mmol/L Anion Gap 11 L (12-20) BUN 10 (9-16) mg/dL Creatinine 0.80 (0.5-1.4) mg/dL Estim Creat Clear Calc 68.6 Estimated GFR > 60 Random Glucose 166 H (60-115) mg/dL Lactic Acid (0.5-2.0) mmol/L Lactic Acid Fup @ 2Hr 2.9 H* (0.5-2.0) mmol/L Calcium 7.6 L D (8.4-10.2) mg/dL Magnesium (1.6-2.6) mg/dL Total Bilirubin (0.0-1.0) mg/dL Direct Bilirubin (0.0-0.5) mg/dL AST (5-31) U/L ALT (0-31) U/L Alkaline Phosphatase (39-117) U/L Total Protein (6.5-8.0) g/dL Albumin (3.5-5.0) g/dL Lipase (8-78) U/L ECG Data Attestation: I personally reviewed and interpreted this ECG as follows: ECG interpretation date: 02/10/21 ECG interpretation time: 09:35 Interpretation: EKG sinus tachycardia at a rate of 129. KS interval 138. QTC 454. No STEMI/nonischemic Discharge Plan Discharge Clinical Impression: Gastroenteritis, Pulmonary nodule, Dehydration, Acidosis, lactic Patient Disposition: Admitted As Inpatient [facility] Past Medical History Attestation statement: The following information was validated with the patient. Medical History Adrenal insufficiency due to cancer therapy Aftercare following left shoulder joint replacement surgery Arthritis Asthma Colitis COPD (chronic obstructive pulmonary disease) Depression Diabetes type 2, uncontrolled Fibromyalgia History of lung cancer Hypothyroidism Multinodular goiter Newly diagnosed diabetes Non-small cell carcinoma of left lung, stage 4 Opioid abuse Opioid use disorder Pancreatitis (~02/2018) Radiation-induced esophagitis Subclinical hyperthyroidism Surgical History History of History of cholecystectomy (~12/02/08) History of endometrial ablation (~07/25/06) History of esophageal dilatation (~02/24/18) History of esophagogastroduodenoscopy (EGD) (~09/04/19) Hx of blepharoplasty (~2018) Hx of shoulder surgery (~2014) Family History Family History Father Pancreatic cancer Mother Diabetes Brother Diabetes Sister Diabetes Social History Social History Household Members: Family Housing: House Do you presently have visiting nurse or other home services: Yes (Ronnie, 24) Alcohol intake: never Patient Tobacco Use Status: Current someday Tobacco user Cigarettes Per Day: 1 Years Smoked: 45 Second Hand Smoke Exposure: No Advance Directives: Yes Advance Directives on File: Yes Advance Directives Date on File: 05/12/20 Patient : No service: No Current occupational status: disabled
[2021-02-09] MEDS: 0.9 % Sodium Chloride 1,000 ML 999 ML IVCONT ×2 (22:07→22:59)
[2021-02-09] MEDS: ondansetron HCL 4 MG/2 ML VIAL IVPUSH (22:08)
[2021-02-09] MEDS: Famotidine/PF 20 MG/2 ML VIAL IVPUSH (22:08)
[2021-02-09 22:10] LABS: Hematocrit 48.6 % (37.0-47.0); Hemoglobin 15.6 g/dl (12.0-16.0); Mean Corpuscular HGB Conc 32.1 g/dl (31.0-35.0); Mean Corpuscular Hemoglobin 28.9 pg (27.0-33.0); Mean Corpuscular Volume 90.2 fL (80.0-98.0); Mean Platelet Volume 12.2 fL (9.4-12.3); Platelet Count 195 X10*3/uL (160-400); Red Blood Count 5.39 X10*6/uL (4.20-5.50); Red Cell Distribution Width 13.1 % (11.0-16.0)
[2021-02-09] MEDS: Magnesium Hydrox/Alum Hydrox 30 ML ORAL.SUSP PO (22:10)
[2021-02-09] MEDS: Lidocaine HCl Viscous 2 % 15 ML SOLUTION MUCOUS MEM (22:10)
[2021-02-09 22:12] LABS: WBC ABN SCTR FOR CBC 1
[2021-02-09 22:23] LABS: Lactic Acid 4.1 mmol/L (0.5-2.0)
[2021-02-09 22:33] VITALS: BP 152/98; RESP 18; TEMP 36.4; O2SAT 98
[2021-02-09 22:38] LABS: Band Neutrophils Percent 25 % (3-5); Eosinophils Percent Manual 1 % (0-4); Large Platelet PRESENT; Lymphocytes Percent Manual 9 % (20-40); Macrocytosis 1+ (5-14) /OIF; Metamyelocytes Percent 3 %; Monocytes Percent Manual 3 % (2-11); Myelocytes Percent 1 %; Neutrophils Percent Manual 58 % (45-73); Platelet Estimate SLIGHTLY DECREASED (NORMAL); Platelet Morphology Comment NORMAL; RBC Morphology NOTED; Tear Drop Cells 1+ (0-2) /OIF; Toxic Vacuolation PRESENT
[2021-02-09 22:39] LABS: Dohle Bodies PRESENT; Eosinophils Absolute Manual 0.1 X10*3/uL (0.0-0.4); Lymphocytes Absolute Manual 1.3 X10*3/uL (1.2-4.9); Metamyelocytes Absolute 0.4 X10*3/uL; Monocytes Absolute Manual 0.4 X10*3/uL (0.1-1.2); Myelocytes Absolute 0.1 X10*/uL; Neutrophils Absolute Manual 12.2 X10*3/uL (2.0-8.3); Smudge Cells PRESENT; White Blood Count 14.7 X10*3/uL (4.8-10.8)
[2021-02-09 22:42] LABS: Alanine Aminotransferase 22 U/L (0-31); Albumin Level 4.9 g/dL (3.5-5.0); Alkaline Phosphatase 128 U/L (39-117); Anion Gap 23 (12-20); Aspartate Amino Transferase 27 U/L (5-31); Bilirubin Direct 0.2 mg/dL (0.0-0.5); Bilirubin Total 0.5 mg/dL (0.0-1.0); Blood Urea Nitrogen 11 mg/dL (9-16); Calcium 10.1 mg/dL (8.4-10.2); Carbon Dioxide 19 mmol/L (22-29); Chloride 103 mmol/L (96-108); Creatinine Clr Calc Pharmacy 51.8; Estimated Glomerular Filt Rate 54; Glucose Random 225 mg/dL (60-115); Lipase 16 U/L (8-78); Magnesium 1.7 mg/dL (1.6-2.6); Potassium 3.7 mmol/L (3.3-5.1); Sodium 141 mmol/L (135-145); Total Protein 8.6 g/dL (6.5-8.0)
[2021-02-09] MEDS: Morphine Sulfate 2 MG/ML CARTRIDGE IVPUSH (22:57)
[2021-02-10] MEDS: iohexoL 350 MG/ML 100 ML INFUS..BTL 85 ML IV (00:04)
[2021-02-10 00:07] LABS: Reflex Lactate? Lactic Acid Added
[2021-02-10] MEDS: Piperacillin Sodium/Tazobactam 3.375 GM in 0.9 % Sodium Chloride 50 ML IV (00:12)
[2021-02-10] MEDS: diphenhydrAMINE HCL 50 MG/ML VIAL IVPUSH (00:58)
[2021-02-10] MEDS: Ketorolac Tromethamine 15 MG/ML VIAL IVPUSH (00:58)
[2021-02-10 01:16] LABS: Anion Gap 11 (12-20); Blood Urea Nitrogen 10 mg/dL (9-16); Calcium 7.6 mg/dL (8.4-10.2); Carbon Dioxide 23 mmol/L (22-29); Chloride 111 mmol/L (96-108); Creatinine Clr Calc Pharmacy 68.6; Estimated Glomerular Filt Rate > 60; Glucose Random 166 mg/dL (60-115); Potassium 3.4 mmol/L (3.3-5.1); Sodium 142 mmol/L (135-145)
[2021-02-10 01:17] LABS: ~Lactic Acid-LAB USE ONLY 2.9 mmol/L (0.5-2.0)
[2021-02-10 01:39] VITALS: BP 146/98; PULSE 118; RESP 16; O2SAT 95
[2021-02-10] MEDS: 0.9 % Sodium Chloride 1,000 ML 999 ML IVCONT (01:40)
[2021-02-10 01:57] LABS: COVID-19 Test Negative (Negative)
[2021-02-10 02:49] LABS: Appearance Urine HAZY; Color Urine YELLOW; Glucose Urine UA NEG (NEG); Leukocyte Esterase Urine NEG (NEG); Nitrite Urine NEG (NEG); Specific Gravity - Urine <= 1.005 (1.005-1.025); Urine Blood NEG (NEG); Urine Ketones NEG (NEG); Urine Protein NEG (NEG-TRACE)
--- NOTE | 2021-02-10 02:57 | PM.IMHP ---
History of Present Illness Date of Service: 02/10/21 Chief Complaint: abd pain 55-year-old with an extensive past medical history (see below presents to the hospital with complaints of abdominal pain. Patient reports that her abdominal pain started about 3 days ago, associated with nausea and vomiting. Patient reports her last BM was yesterday with soft, non diarrhea, she has lower abdominal pain, describes it as 10/10 as well as spasm in the stomach, abdominal pain is nonradiating, constant, no alleviating or exacerbating factors. reports that she has been vomiting nonstop all day, she is also complaining of migraine headache. On arrival to the ED patient hemodynamically stable found to have a temp of 98.4?, heart rate of 115, respiratory rate 18, blood pressure of 151/97, satting 98% on room air Labs are significant for the history count of 14.6, creatinine around 0.06 improved to 0.8 after fluids given in the ED, lactic level of 4.1 improved after IV fluids, UA negative UDS positive for opioids, barbiturates, as well as benzodiazepine abdominal CT shows small bowels mildly prominent and fluid-filled which could be seen in the setting of gastroenteritis in the appropriate clinical context PE no significant wall thickening or stat stranding. Moderate stool burden suggesting constipation, hepatic steatosis patient admitted further management Review of Systems Review of Systems: Yes all other systems are reviewed and are negative [facility] Medical History Adrenal insufficiency due to cancer therapy Aftercare following left shoulder joint replacement surgery Arthritis Asthma Colitis COPD (chronic obstructive pulmonary disease) Depression Diabetes type 2, uncontrolled Fibromyalgia History of lung cancer Hypothyroidism Multinodular goiter Newly diagnosed diabetes Non-small cell carcinoma of left lung, stage 4 Opioid abuse Opioid use disorder Pancreatitis (~02/2018) Radiation-induced esophagitis Subclinical hyperthyroidism Family History Father Pancreatic cancer Mother Diabetes Brother Diabetes Sister Diabetes Surgical History History of History of cholecystectomy (~12/02/08) History of endometrial ablation (~07/25/06) History of esophageal dilatation (~02/24/18) History of esophagogastroduodenoscopy (EGD) (~09/04/19) Hx of blepharoplasty (~2018) Hx of shoulder surgery (~2014) Social History Household Members: Family Housing: House Do you presently have visiting nurse or other home services: Yes (Ronnie, 24) Alcohol intake: never Patient Tobacco Use Status: Current someday Tobacco user Cigarettes Per Day: 1 Years Smoked: 45 Second Hand Smoke Exposure: No Advance Directives: Yes Advance Directives on File: Yes Advance Directives Date on File: 05/12/20 Patient : No service: No Current occupational status: unemployed and disabled Meds Allergies Allergy/AdvReac Type Severity Reaction Status Date / Time acetaminophen [Tylenol] AdvReac Unknown Abdominal Verified 01/31/21 15:30 Pain ibuprofen AdvReac Unknown Abdominal Verified 01/31/21 15:30 Pain senna AdvReac Unknown Headache Verified 01/31/21 15:30 Active Medications: Current Medications Pharmacy Consult (Consult Rx Perform Med Rec) 1 each MISCELLANE ONCE PRN PRN Reason: Consult order Home Medications Medication Instructions Recorded Confirmed Last Taken Type alprazolam 1 mg tablet 1 mg PO TID PRN 12/17/19 02/10/21 02/08/21 History clonidine HCl 0.1 mg tablet 0.1 mg PO DAILY 12/17/19 02/10/21 02/08/21 History hydroxyzine pamoate 50 mg capsule 50 mg PO Q8H PRN 12/17/19 02/10/21 02/08/21 History venlafaxine 150 mg 150 mg PO DAILY 03/08/20 02/10/21 02/08/21 History capsule,extended release 24 hr zolpidem 10 mg tablet 10 mg PO BEDTIME PRN 03/08/20 02/10/21 02/08/21 History bupropion HCl 150 mg tablet,12 hr 300 mg PO DAILY 05/27/20 02/10/21 02/08/21 History sustained-release ascorbic acid (vitamin C) 500 mg 500 mg PO DAILY 02/10/21 02/10/21 02/08/21 History tablet (Vitamin C) biotin 5,000 mcg sublingual tablet 5,000 mcg SUBLINGUAL DAILY 02/10/21 02/10/21 02/08/21 History cholecalciferol (vitamin D3) 25 25 mcg PO DAILY 02/10/21 02/10/21 02/08/21 History mcg (1,000 unit) tablet (Vitamin D3) loperamide 2 mg tablet 2 mg PO BID PRN 02/10/21 02/10/21 Unknown History (Anti-Diarrheal (loperamide)) venlafaxine 75 mg capsule,extended 1 cap PO DAILY 02/10/21 02/10/21 02/08/21 History release 24 hr Physical Exam Vital Signs and Narrative: Vital Signs: Last Vital Signs Temp 97.6 F 02/09/21 22:33 Pulse 118 H 02/10/21 01:39 Resp 16 02/10/21 01:39 BP 146/98 H 02/10/21 01:39 Pulse Ox 95 02/10/21 01:39 BMI result Body Mass Index 21.4 Const: General: cooperative and no acute distress Orientation/consciousness: patient oriented x3 Eyes: General: appearance normal, both eyes and all related structures Pupils: Equal, round and reactive pupils present Resp: Effort & Inspection: normal respiratory effort Auscultation: clear to auscultation bilaterally Cardio: Rate: regular rate Rhythm: regular rhythm GI: Other: mildly tender on palpation no rebound or guarding Palpation (GI): Soft to palpation Auscultation: normal bowel sounds Skin: General skin exam: no rashes or lesions noted Neuro: General: patient oriented x3 Cranial nerves: Yes Equal, round and reactive pupils present Cognition (Neuro): normal cognition Extrem: General: Yes normal to inspection and Yes no pedal edema Results Labs CBC and Chem 7: 02/10/21 06:55 02/10/21 06:55 Labs: Laboratory Results - last 24 hr 02/09/21 02/09/21 02/09/21 21:53 21:53 21:53 MCV 90.2 MCH 28.9 MCHC 32.1 RDW 13.1 Plt Count 195 MPV 12.2 Immature Gran % (Auto) Cancelled Neut % (Auto) Cancelled Lymph % (Auto) Cancelled [place] % (Auto) Cancelled Eos % (Auto) Cancelled Baso % (Auto) Cancelled Lymph # (Auto) Cancelled [place] # (Auto) Cancelled Eos # (Auto) Cancelled Baso # (Auto) Cancelled Abs Immat Gran (auto) Cancelled Absolute Neuts (auto) Cancelled Absolute Nucleated RBC 0.000 Nucleated RBC % (auto) 0.0 Neutrophils % (Manual) 58 Band Neutrophils % 25 H Lymphocytes % (Manual) 9 L Monocytes % (Manual) 3 Eosinophils % (Manual) 1 Metamyelocytes % 3 Myelocytes % 1 Abs Neuts (Manual) 12.2 H Lymphocytes # (Manual) 1.3 Monocytes # (Manual) 0.4 Eosinophils # (Manual) 0.1 Metamyelocytes # 0.4 Myelocytes # 0.1 Smudge Cells PRESENT Toxic Vacuolation PRESENT Dohle Bodies PRESENT Platelet Estimate SLIGHTLY DECREASED Large Platelets PRESENT Plt Morphology Comment NORMAL RBC Morphology NOTED Macrocytosis 1+ (5-14) Tear Drop Cells 1+ (0-2) [address] Cells 1+ ( Anion Gap 23 H Estim Creat Clear Calc 51.8 Estimated GFR 54 Random Glucose 225 H Lactic Acid 4.1 H* Lactic Acid Fup @ 2Hr Calcium 10.1 D Magnesium 1.7 Total Bilirubin 0.5 Direct Bilirubin 0.2 AST 27 ALT 22 Alkaline Phosphatase 128 H D Total Protein 8.6 H D Albumin 4.9 D Lipase 16 Urine Color Urine Appearance Urine pH Ur Specific [place] Urine Protein Urine Glucose (UA) Urine Ketones Urine Blood Urine Nitrite Ur Leukocyte Esterase COVID-19 ([facility]IEL) COVID-19 Clin Com 02/10/21 02/10/21 02/10/21 00:57 00:57 01:40 MCV MCH MCHC RDW Plt Count MPV Immature Gran % (Auto) Neut % (Auto) Lymph % (Auto) [place] % (Auto) Eos % (Auto) Baso % (Auto) Lymph # (Auto) [place] # (Auto) Eos # (Auto) Baso # (Auto) Abs Immat Gran (auto) Absolute Neuts (auto) Absolute Nucleated RBC Nucleated RBC % (auto) Neutrophils % (Manual) Band Neutrophils % Lymphocytes % (Manual) Monocytes % (Manual) Eosinophils % (Manual) Metamyelocytes % Myelocytes % Abs Neuts (Manual) Lymphocytes # (Manual) Monocytes # (Manual) Eosinophils # (Manual) Metamyelocytes # Myelocytes # [place]udge Cells Toxic Vacuolation Dohle Bodies Platelet Estimate Large Platelets Plt Morphology Comment RBC Morphology Macrocytosis Tear Drop Cells [place] Cells Anion Gap 11 L Estim Creat Clear Calc 68.6 Estimated GFR > 60 Random Glucose 166 H Lactic Acid Lactic Acid Fup @ 2Hr 2.9 H* Calcium 7.6 L D Magnesium Total Bilirubin Direct Bilirubin AST ALT Alkaline Phosphatase Total Protein Albumin Lipase Urine Color Urine Appearance Urine pH Ur Specific [place] Urine Protein Urine Glucose (UA) Urine Ketones Urine Blood Urine Nitrite Ur Leukocyte Esterase COVID-19 (OZIEL) Negative COVID-19 Clin Com See Note 02/10/21 02:43 MCV MCH MCHC RDW Plt Count MPV Immature Gran % (Auto) Neut % (Auto) Lymph % (Auto) [place] % (Auto) Eos % (Auto) Baso % (Auto) Lymph # (Auto) [place] # (Auto) Eos # (Auto) Baso # (Auto) Abs Immat Gran (auto) Absolute Neuts (auto) Absolute Nucleated RBC Nucleated RBC % (auto) Neutrophils % (Manual) Band Neutrophils % Lymphocytes % (Manual) Monocytes % (Manual) Eosinophils % (Manual) Metamyelocytes % Myelocytes % Abs Neuts (Manual) Lymphocytes # (Manual) Monocytes # (Manual) Eosinophils # (Manual) Metamyelocytes # Myelocytes # [place] Cells Toxic Vacuolation Dohle Bodies Platelet Estimate Large Platelets Plt Morphology Comment RBC Morphology Macrocytosis Tear Drop Cells [address] Cells Anion Gap Estim Creat Clear Calc Estimated GFR Random Glucose Lactic Acid Lactic Acid Fup @ 2Hr Calcium Magnesium Total Bilirubin Direct Bilirubin AST ALT Alkaline Phosphatase Total Protein Albumin Lipase Urine Color YELLOW Urine Appearance HAZY Urine pH 7.0 Ur Specific [place] <= 1.005 Urine Protein NEG Urine Glucose (UA) NEG Urine Ketones NEG Urine Blood NEG Urine Nitrite NEG Ur Leukocyte Esterase NEG COVID-19 ([facility]ZIEL) COVID-19 Clin Com Imaging Radiologist's Impressions: Impressions Abdomen/Pelvis CT 02/10/21 00:00 IMPRESSION: The small bowel is mildly prominent and fluid-filled which could be seen in the setting of gastroenteritis in the appropriate clinical context. There is however no significant associated wall thickening or fat stranding. Moderate stool burden possibly suggesting constipation/slow transit. Hepatic steatosis. Unchanged prominence of the common bile duct following cholecystectomy. Incidentally noted is made of a 0.4 cm right lower lobe pulmonary nodule for which no follow-up is recommended for Fleischner Society guidelines. 2017 Fleischner Society Recommendations for Lung Nodule(s): Follow-Up based on size (average of long- and short-axis diameters). Use most suspicious nodule for followup. Single Solid low risk nodule < 6 mm: No routine follow-up imaging is recommended in low risk and high risk patients. These guidelines do not apply to patients younger than 35 years, immunocompromised patients, and patients with cancer. F/u in patients with significant comorbidities as clinically warranted. For lung cancer screening, adhere to Lung-RADS guidelines. Reference: Radiology. 2017 Sameer; 284(1):228-243 Assessment and Plan (1) Gastroenteritis: Status: Acute (2) Dehydration: Status: Acute fd 55-year-old female with past medical history of diabetes, COPD, hypothyroidism, opioid use disorder, history of pancreatitis, presents to the hospital with complaints of abdominal pain and vomiting found to have dehydration as well as gastroenteritis # gastroenteritis - has vomiting, evidence of dehydration with tachycardia, no evidence of colitis - start on IV fluid - supportive measures # lactic acidosis - most likely secondary to dehydration - will start IV fluids - follow lactic acid # seizure disorder - continue Keppra # History of diabetes - will place her on low-dose sliding scale insulin - patient threatened that she will leave AMA if I did not give her specifically Dilaudid for her abdominal pain, I discussed that I will give her 1 dose but I will not review repeating it as she does not have pain enough to require high doses of narcotics. Patient does have history of opioid use disorder and appears to have pain med seeking behavior DVT prophylaxis: Quality Stroke Does the patient have a stroke diagnosis?: No VTE Prior VTE?: No VTE Risk Level:: Medical - moderate - high VTE Device Contraindication: Treatment Not Indicated VTE Drug Contraindication: N/A - Med Ordered
[2021-02-10 03:01] LABS: Reflex Lactate? 2 Y
[2021-02-10 03:06] LABS: Amphetamine Screen Urine Not Detected (Not Detect); Barbiturates, Urine POSITIVE (Not Detect); Benzodiazepines Screen Urine POSITIVE (Not Detect); Cannabinoid Screen Urine Not Detected (Not Detect); Cocaine Screen Urine Not Detected (Not Detect); Fentanyl, urine Not Detected (Not Detect); Opiate Screen Urine POSITIVE (Not Detect); Phencyclidine Screen Urine Not Detected (Not Detect)
[2021-02-10 03:31] LABS: ~Lactic Acid-LAB USE ONLY 3.1 mmol/L (0.5-2.0)
[2021-02-10] MEDS: Zolpidem Tartrate 5 MG TABLET 10 MG PO (04:22)
[2021-02-10] MEDS: HYDROmorphone HCl 0.5 MG/0.5 ML SYRINGE IVPUSH ×2 (05:59→15:11)
[2021-02-10] MEDS: Lactated Ringers 1,000 ML 125 ML IVCONT (05:59)
[2021-02-10] MEDS: Enoxaparin Sodium 40 MG/0.4 ML SYRINGE SUBCUT (06:00)
[2021-02-10 06:31] VITALS: BP 142/87; PULSE 115; RESP 16; O2SAT 100
[2021-02-10 07:02] LABS: MANUAL DIFF FLAG NO
[2021-02-10 07:15] LABS: Basophils Percent Auto 0.2 % (0-2); Eosinophils Percent Auto 0.1 % (0-4); Hematocrit 32.7 % (37.0-47.0); Hemoglobin 10.5 g/dl (12.0-16.0); Imm Gran Abs Auto 0.04 X10*3/uL (0.00-0.03); Imm Gran Pct Auto 0.4 % (0.0-0.4); Lymphocytes Percent Auto 10.8 % (20-40); Mean Corpuscular HGB Conc 32.1 g/dl (31.0-35.0); Mean Corpuscular Hemoglobin 29.1 pg (27.0-33.0); Mean Corpuscular Volume 90.6 fL (80.0-98.0); Mean Platelet Volume 12.5 fL (9.4-12.3); Monocytes Absolute Auto 0.9 X10*3/uL (0.1-1.2); Neutrophils Absolute Auto 7.3 x10*3/uL (2.0-8.3); Neutrophils Percent Auto 78.5 % (45-73); Platelet Count 130 X10*3/uL (160-400); Red Blood Count 3.61 X10*6/uL (4.20-5.50); Red Cell Distribution Width 13.1 % (11.0-16.0); White Blood Count 9.3 X10*3/uL (4.8-10.8)
[2021-02-10 07:19] LABS: Anion Gap 12 (12-20); Blood Urea Nitrogen 10 mg/dL (9-16); Calcium 7.6 mg/dL (8.4-10.2); Carbon Dioxide 23 mmol/L (22-29); Chloride 111 mmol/L (96-108); Creatinine Clr Calc Pharmacy 69.4; Estimated Glomerular Filt Rate > 60; Glucose Random 177 mg/dL (60-115); Sodium 142 mmol/L (135-145)
[2021-02-10 09:16] LABS: Glucose, Whole Blood 157 mg/dL (60-115)
--- NOTE | 2021-02-10 09:29 | PHA.MEDREC ---
Pharmacy Consult ? Medication Reconciliation Pharmacy has reviewed the medication reconciliation completed by Marlo. There were multiple discrepanices. Clonidine is BID instead of at bedtime. Patient is also on venlaxaine 75 mg in addition to 150 mg. Patient no longer takes gabapentin or mesalamine per claim history and patient report. Jerri Uriostegui, PharmD
[2021-02-10] MEDS: Lactated Ringers 1,000 ML 100 ML IVCONT ×2 (09:58→18:38)
[2021-02-10] MEDS: Insulin Lispro 100 UNIT/ML 3 ML VIAL SUBCUT (09:59)
[2021-02-10 10:00] VITALS: BP 142/87; PULSE 115
[2021-02-10] MEDS: Butalb/Acetamin/Caff 50/325/40 TABLET 1 TAB PO (10:00)
[2021-02-10] MEDS: cloNIDine HCL 0.1 MG TABLET PO ×2 (10:00→22:37)
[2021-02-10] MEDS: Docusate Sodium 100 MG CAPSULE PO ×2 (10:00→22:37)
[2021-02-10] MEDS: levETIRAcetam 500 MG TABLET PO ×2 (10:02→22:37)
[2021-02-10] MEDS: Venlafaxine HCl ER 150 MG CAP.ER.24H PO (10:02)
[2021-02-10] MEDS: polyethylene glycoL 3350 17 GM POWD.PACK PO (10:02)
[2021-02-10 10:11] VITALS: BP 137/86; PULSE 107; RESP 18; TEMP 37.2; O2SAT 100
--- NOTE | 2021-02-10 11:09 | MHC.CM.PN ---
PT RESIDES WITH FAMILY AND HAS DAILY [employer] PT HAS A HCP ON FILE AND CONFIRMS HER PCP IS STILL LAURA BROOKE. OBS NOTICE DELIVERED CURRENT DC PLAN IS HOME WITH RESUMPTION OF [employer] FAMILY TO TRANSPORT
[2021-02-10 12:22] VITALS: BP 135/92; PULSE 104; RESP 18; TEMP 37.3; O2SAT 94
--- NOTE | 2021-02-10 14:00 | PC.NURSE ---
encouraged to take PO liquids from tray.
--- NOTE | 2021-02-10 14:50 | PC.NURSE ---
sleeping. mele held.
--- NOTE | 2021-02-10 17:10 | PC.NURSE ---
up to br, steady. no walker use. requesting carafate for heartburn.
[2021-02-10] MEDS: Sucralfate 1 GM TABLET PO (18:37)
[2021-02-10 19:05] LABS: Glucose, Whole Blood 86 mg/dL (60-115)
[2021-02-10 22:37] VITALS: BP 150/96; PULSE 96
[2021-02-10] MEDS: ALPRAZolam 0.5 MG TABLET 1 MG PO (22:52)
[2021-02-10] MEDS: Zolpidem Tartrate 5 MG TABLET PO (22:53)
--- NOTE | 2021-02-10 22:57 | PC.NURSE ---
PT IN STRETCHER C/O PAIN ALL OVER AND MY HEAD . PT MEDICATED PER EMAR FOR ANXIETY AND SLEEP AND IS REQUESTING SEVERAL TIMES DILAUDID. ATTEMPTING TO CALL HOSPITALIST AT THIS TIME.
[2021-02-10 23:08] LABS: Glucose, Whole Blood 108 mg/dL (60-115)
--- NOTE | 2021-02-11 00:01 | PC.NURSE ---
pt continues to request dilaudid. Hospitalist aware and ordered tramodol. Pt is stopping Dr. Banda in hallway and requesting dilaudid from him.
[2021-02-11 00:22] VITALS: BMI 21.4
--- NOTE | 2021-02-11 00:43 | PC.NURSE ---
Addendum entered by Lupe Rudd RN 02/11/21 02:20: 15mg IVP ketorolac given for headache/abd pain. Original Note: Admission assessment completed by this RN. Pt a/o x4, reports nausea, and abdominal pain 12/18. Pt in/out of sleep. Pt refused tramadol, requesting IV dilaudid for pain. Hospitalist updated. VSS, rails padded for seizure prec, pt aware of plan of care.
[2021-02-11 01:05] VITALS: BP 138/79; PULSE 81; TEMP 37.1; O2SAT 95
[2021-02-11] MEDS: Ketorolac Tromethamine 15 MG/ML VIAL IVPUSH (02:19)
[2021-02-11 04:00] VITALS: BP 168/92; PULSE 99; RESP 18; O2SAT 98
[2021-02-11] MEDS: Enoxaparin Sodium 40 MG/0.4 ML SYRINGE SUBCUT (05:43)
[2021-02-11 07:20] LABS: Glucose, Whole Blood 85 mg/dL (60-115)
[2021-02-11 07:53] VITALS: BP 144/82; PULSE 79; RESP 16; TEMP 36.7; O2SAT 95
[2021-02-11] MEDS: Sucralfate 1 GM TABLET PO (08:01)
[2021-02-11 08:26] LABS: Hemoglobin 10.3 g/dl (12.0-16.0); Mean Corpuscular HGB Conc 32.2 g/dl (31.0-35.0); Mean Corpuscular Hemoglobin 28.9 pg (27.0-33.0); Mean Corpuscular Volume 89.9 fL (80.0-98.0); Platelet Count 124 X10*3/uL (160-400); Red Blood Count 3.56 X10*6/uL (4.20-5.50); Red Cell Distribution Width 12.5 % (11.0-16.0); White Blood Count 7.9 X10*3/uL (4.8-10.8)
[2021-02-11 08:59] LABS: Anion Gap 11 (12-20); Blood Urea Nitrogen 6 mg/dL (9-16); Calcium 8.4 mg/dL (8.4-10.2); Carbon Dioxide 24 mmol/L (22-29); Chloride 108 mmol/L (96-108); Creatinine Clr Calc Pharmacy 80.7; Estimated Glomerular Filt Rate > 60; Glucose Random 95 mg/dL (60-115); Potassium 3.7 mmol/L (3.3-5.1); Sodium 139 mmol/L (135-145)
[2021-02-11] MEDS: levETIRAcetam 500 MG TABLET PO (09:47)
[2021-02-11] MEDS: ALPRAZolam 0.5 MG TABLET 1 MG PO (09:47)
[2021-02-11] MEDS: Venlafaxine HCl ER 150 MG CAP.ER.24H PO (09:47)
[2021-02-11] MEDS: cloNIDine HCL 0.1 MG TABLET PO (09:47)
[2021-02-11] MEDS: SUMAtriptan succinate 50 MG TABLET PO (09:47)
[2021-02-11 09:48] VITALS: BP 144/85; PULSE 82; RESP 18
--- NOTE | 2021-02-11 10:15 | PM.DS ---
DS: Providers Provider Date of Service: 02/11/21 Date of admission: 02/10/21 02:56 Primary care physician: Unknown Physician DS: Diagnosis Discharge Diagnosis (1) Gastroenteritis: Status: Acute (2) Dehydration: Status: Acute (3) Pulmonary nodule: Status: Acute (4) Acidosis, lactic: Status: Acute DS: Summary Hospital Course Hospital Course: Admission note HPI ?55-year-old with an extensive past medical history (see below presents to the hospital with complaints of abdominal pain.? Patient reports that her abdominal pain started about 3 days ago, associated with nausea? and vomiting.? Patient reports her last BM was yesterday with soft, non diarrhea, she has lower abdominal pain, describes it as 10/10 as well as spasm in the stomach, abdominal pain is nonradiating, constant, no alleviating or exacerbating factors.? reports that she has been vomiting nonstop all day, she is also complaining of migraine headache. ? On arrival to the ED patient hemodynamically stable found to have a temp of 98.4?, heart rate of 115, respiratory rate 18, blood pressure of 151/97, satting 98% on room air Labs are significant for? the history count of 14.6, creatinine around 0.06 improved to 0.8 after fluids given in the ED, lactic level of 4.1 improved after IV fluids, UA negative UDS positive for opioids, barbiturates, as well as benzodiazepine ?abdominal CT shows small? bowels mildly prominent and fluid-filled which could be seen in the setting of gastroenteritis in the appropriate clinical context PE no significant wall thickening or stat stranding.? Moderate stool burden suggesting constipation, hepatic steatosis Hospital course Patient was admitted for evaluation of abdominal pain. A CT scan of the abdomen and pelvis was consistent with possible gastroenteritis. The patient was able to tolerate diet and was treated with supportive measures mainly. With good response over the course of hospital stay as the patient was able to tolerate diet and abdominal pain resolved. She was noted to have lactic acidosis at time of presentation resolved with IV fluids as it is believed to be secondary to dehydration. CT scan showed a 4 mm lung nodule. Not recommended for follow-up at this stage as it is less than 6 mm. To be discharged home on her home medication and to take Carafate for 1 week as it is the only medication she can tolerate for stomach according to her. To follow-up with Neurology as outpatient regarding her recurrent headaches Time Spent with Patient Time attestation: Total time spent providing and/or coordinating discharge services: Discharge coordination time: Greater than 30 minutes Quality: Stroke Does the patient have a stroke diagnosis?: No Physical Exam Vital Signs: Vital Signs: Last Vital Signs Temp 98.0 F 02/11/21 07:53 Pulse 82 02/11/21 09:48 Resp 18 02/11/21 09:48 BP 144/85 H 02/11/21 09:48 Pulse Ox 95 02/11/21 07:53 BMI result Body Mass Index 21.4 Const: Other: Constitutional : Alert, oriented, not in distress Neck : Normal inspection, Supple Cardiovascular : RRR, S1 S2, no lower extremity edema Respiratory : Good bilateral air entry, no crackles, wheezes or rhonchi Gastrointestinal: soft, lax, Normal bowel sounds, Non tender Skin : Warm, Dry Neurological : Alert & oriented x3, No focal deficit DS: Data Data Completed and Pending Completed studies during hospitalization [Text1]: Procedures Excision of Stomach, Pylorus, Via Natural or Artificial Opening Endoscopic, Diagnostic (07/21/20) Labs on day of discharge: Laboratory Results - last 24 hr 02/09/21 02/10/21 02/10/21 21:53 13:36 23:04 WBC RBC Hgb Hct MCV MCH MCHC RDW Plt Count MPV Absolute Nucleated RBC Nucleated RBC % (auto) Smear Path Review SEE NOTE Sodium Potassium Chloride Carbon Dioxide Anion Gap BUN Creatinine Estim Creat Clear Calc Estimated GFR POC Glucose 86 108 Random Glucose Calcium 02/11/21 02/11/21 02/11/21 07:13 08:18 08:18 WBC 7.9 RBC 3.56 L Hgb 10.3 L Hct 32.0 L MCV 89.9 MCH 28.9 MCHC 32.2 RDW 12.5 Plt Count 124 L MPV 12.0 Absolute Nucleated RBC 0.000 Nucleated RBC % (auto) 0.0 Smear Path Review Sodium 139 Potassium 3.7 Chloride 108 Carbon Dioxide 24 Anion Gap 11 L BUN 6 L Creatinine 0.68 Estim Creat Clear Calc 80.7 Estimated GFR > 60 POC Glucose 85 Random Glucose 95 Calcium 8.4 D Preliminary micro results at discharge 02/09/21 22:41 Blood Culture - Preliminary Blood - Venous No growth after 24 hours. 02/09/21 21:53 Blood Culture - Preliminary Blood - Venous No growth after 24 hours. Discharge Plan Discharge Patient Disposition: Home, Self-Care Discharge Diagnosis: Gastroenteritis Referrals: Physician,Unknown Raymond [Primary Care Provider] - 2 days Wood Murphy [Physician] - 2 days Discharge Medications: New sucralfate 1 gram Tablet 1 g PO BIDAC 7 Days Qty: 14 RF: 0 Continued (DME) FreeStyle Lite Strips Strip See Rx Instructions .MEDSUPPLY Qty: 150 RF: 6 bupropion HCl 150 mg tablet sustained-release 12 hr 300 mg PO DAILY RF: 0 clonidine HCl 0.1 mg tablet 0.1 mg PO DAILY RF: 0 alprazolam 1 mg tablet 1 mg PO TID PRN (Reason: Anxiety) RF: 0 hydroxyzine pamoate 50 mg capsule 50 mg PO Q8H PRN (Reason: Anxiety) RF: 0 scopolamine base 1 mg over 3 days Patch 3 Day 1 patch TRANSDERMAL Q3D Qty: 5 RF: 2 levetiracetam 500 mg tablet 500 mg PO BID Qty: 180 RF: 2 docusate sodium [Colace] 100 mg capsule 100 mg PO BID Qty: 30 RF: 0 venlafaxine 75 mg capsule,extended release 24hr 1 cap PO DAILY RF: 0 ascorbic acid (vitamin C) [Vitamin C] 500 mg Tablet 500 mg PO DAILY RF: 0 cholecalciferol (vitamin D3) [Vitamin D3] 25 mcg (1,000 unit) Tablet 25 mcg PO DAILY RF: 0 biotin 5,000 mcg Tablet, Sublingual 5,000 mcg SUBLINGUAL DAILY RF: 0 loperamide [Anti-Diarrheal (loperamide)] 2 mg tablet 2 mg PO BID PRN (Reason: Diarrhea) RF: 0 venlafaxine 150 mg capsule,extended release 24hr 150 mg PO DAILY RF: 0 zolpidem 10 mg tablet 10 mg PO BEDTIME PRN (Reason: Sleep) RF: 0 Changed ondansetron HCl [Zofran] 4 mg Tablet 4 mg PO Q8H PRN (Reason: Nausea And Vomiting) Qty: 30 RF: 1 Discharge Orders: Discharge Order (Routine); Ordered 02/11/21 Ordered By: Marta Bunn Diet: advance to usual diet Activity on Discharge: As tolerated Stand Alone Forms: Patient Portal Discharge page Care Plan Goals: Read below Health Concerns: Read below Plan of Treatment: Read below Assessment: You were admitted to the hospital for evaluation of abdominal pain. Found to evidence of gastroenteritis treated with supportive measures with good response over the course of hospital stay. Increase fiber in your diet, use Metamucil Use Carafate for the next week To follow-up with Neurology as outpatient regarding your migraine Patient Instructions: Acute Nausea and Vomiting (ED), Abdominal Pain (ED) Discharge Date/Time: 02/11/21 11:19
== END 2021-02-11 11:19 | disposition home or self-care (01) ==
LOC: HO.ED 02-10 01:36 → HO.EDOVER 02-10 03:00 → HO.IMC 02-11 10:23 → HO.EDOVER 02-11 10:37
PROVIDERS: Physician Assistant; Admitting Provider Internal Medicine; Emergency Provider Emergency Medicine; PCP Internal Medicine; Visit Provider Student in an Organized Health Care Education/Training Program
DX: K52.9 Noninfective gastroenteritis and colitis, unspecified (principal); E86.0 Dehydration; R91.1 Solitary pulmonary nodule; E87.2 Acidosis; R10.13 Epigastric pain; R11.2 Nausea with vomiting, unspecified; G40.409 Other generalized epilepsy and epileptic syndromes, not intractable, without status epilepticus; K76.0 Fatty (change of) liver, not elsewhere classified; C34.90 Malignant neoplasm of unspecified part of unspecified bronchus or lung; R00.0 Tachycardia, unspecified; Z20.822 Contact with and (suspected) exposure to COVID-19; Z90.49 Acquired absence of other specified parts of digestive tract; Z79.891 Long term (current) use of opiate analgesic; Z79.84 Long term (current) use of oral hypoglycemic drugs; Z79.899 Other long term (current) drug therapy
CPT/HCPCS: 36415; 74177; 80048; 80076; 80307; 81003; 82947; 83605; 83690; 83735; 85007; 85025; 85027; 87040; 87635; 93005; 96361; 96372; 96374; 96375; 96376; 99218; 99285; J1170; J1200; J1650; J1885; J2270; J2405; J2543; Q9967

== ENCOUNTER 2021-03-22 12:48 | Outpatient (REF) | payer OTHER, SELFPAY ==
--- NOTE | ~2021-03-22 | US_ITS ---
EXAMINATION: US THYROID CLINICAL INFORMATION: History of goiter. Hypothyroidism. COMPARISON: X-ray soft tissue neck 11/30/2018. Ultrasound soft tissue head/neck thyroid dated 10/03/2017 and 11/08/2014. TECHNIQUE: Linear transducer grayscale and color Doppler examination with attention to the region of the thyroid. FINDINGS: SIZE: Measurements of the thyroid lobes and nodules are given in sagittal, anteroposterior and transverse dimensions respectively. Right Thyroid Lobe: 5.3 x 1.4 x 1.8 cm, volume 6.9 mL. Previously 4.5 x 1.5 x 1.9 cm, volume 6.7 mL. Parenchyma: The gland echotexture is homogeneous. Thyroid vascularity is normal. Left Thyroid Lobe: 5.0 x 1.3 x 1.5 cm, volume 5.1 mL. Previously 5.1 x 1.6 x 1.6 cm, volume 6.7 mL. Parenchyma: The gland echotexture is homogeneous. Thyroid vascularity is normal. Isthmus: 0.3 cm in maximum AP dimension. Previously 0.4 cm. Estimated total number of nodules greater than or equal to 1 cm: 0. Archaeology Professor nodules are described as follows: 1. Location: Right superior/mid. Size: 0.2 x 0.1 x 0.2 cm, volume 0.002 mL. Previously: Not documented on the previous study. Nodule characteristics: Composition: Solid (2). Echogenicity: Hypoechoic (2). Shape: Not taller than wide (0). Margins: Ill-defined (0). Echogenic Foci: None (0). ACR TI-RADS total points: 4 ACR TI-RADS category: 4 2. Location: Left mid inferior. Size: 0.9 x 0.5 x 0.7 cm, volume 0.2 mL. Previously: Not documented on the previous study. Nodule characteristics: Composition: Solid (2). Echogenicity: Hypoechoic (2). Shape: Not taller than wide (0). Margins: Ill-defined (0). Echogenic Foci: None (0). ACR TI-RADS total points: 4 ACR TI-RADS category: 4 3. Location: Left inferior. Size: 0.5 x 0.3 x 0.5 cm, volume 0.04 mL. Previously: 0.6 x 0.4 x 0.4 cm, volume 0.005 mL. Nodule characteristics: Composition: Solid (2). Echogenicity: Hypoechoic (2). Shape: Not taller than wide (0). Margins: Ill-defined (0). Echogenic Foci: None (0). ACR TI-RADS total points: 4 ACR TI-RADS category: 4 Significant change in size (>/= 20% in 2 dimensions and minimal increase of 2 mm or 50% or greater increase in volume): Change in features: Change in ACR TI-RADS risk category: NODES: No lymphadenopathy is seen in the tissue surrounding the thyroid gland. Morphologically normal-appearing lymph nodes are noted bilaterally. US/US thyroid IMPRESSION: Multinodular thyroid gland, shows sonographic morphology consistent with ACR TIRADS category 4. Given the size of the nodules, follow-up sonographic surveillance is recommended. ACR TI-RADS RECOMMENDATION REFERENCE: Ultrasound-guided fine-needle aspiration, followup ultrasound, no further follow up. * TR1 (0 point) and TR 2 (2 points): No FNA or follow up * TR3 (3 points): FNA if more than or equal to 2.5 cm in maximum dimension, followup ultrasound in 1, 3 and 5 years if 1.5 to 2.4 cm in maximum dimension. * TR4 (4-6 points): FNA if more than or equal to 1.5 cm in maximum dimension, followup ultrasound in 1, 2, 3 and 5 years if 1 to 1.4 cm in maximum dimension. * TR5 (more than or equal to 7 points): FNA if more than or equal to 1 cm in maximum dimension, followup ultrasound every year for 5 years if 0.5 to 0.9 cm in maximum dimension. * TR3, TR4 or TR5 nodules that are below the size threshold for follow up receive no follow up.
== END 2021-03-22 12:49 | disposition home or self-care (01) ==
LOC: HO.US 12:48
PROVIDERS: PCP Internal Medicine; Visit Provider Internal Medicine
DX: C34.90 Malignant neoplasm of unspecified part of unspecified bronchus or lung (principal); E11.9 Type 2 diabetes mellitus without complications; E03.9 Hypothyroidism, unspecified; Z92.3 Personal history of irradiation
CPT/HCPCS: 76536

== ENCOUNTER 2021-05-09 11:00 | Outpatient (REF) | payer OTHER, SELFPAY ==
--- NOTE | ~2021-05-09 | CT_ITS ---
EXAMINATION: CT chest w con. CLINICAL INFORMATION: Reason for Exam Follow-up on non-small cell lung carcinoma COMPARISON: Multiple prior CTs most recent April 15, 2020 TECHNIQUE: Multidetector volumetric CT imaging of the chest was done. Axial MIP volume rendering provided. Sagittal and coronal reformatted images were obtained. This CT examination was performed using dose optimization techniques as appropriate, variously including the following: *Automated exposure control *Adjustment of mA and/or kV according to patient size (this includes techniques or standardized protocols for targeted exams where dose is matched to indication/reason for exam; i.e. extremities or head) *Use of iterative reconstruction technique CONTRAST: Noncontrasted study. DLP: 91 mGy-cm FINDINGS: DEVELOPMENTAL ELECTRONICS ASSEMBLER: LINES/TUBES: Adapted Physical Education Specialist reviewed, no lines. LUNGS: Lung parenchyma: There is mild primarily peripheral pulmonary emphysema especially involving the upper lobes.. Lung nodules/masses: Redemonstration of soft tissue fullness/atelectasis/scarring right parahilar region likely related to prior radiation. The overall appearance of which has not changed. There are no suspicious lung nodules, no mass or evidence of pulmonary metastasis. AIRWAYS: Trachea and bronchi are normal. PLEURA: No pleural effusion or pneumothorax. MEDIASTINUM AND AMY: No mediastinal, hilar or axillary lymphadenopathy. No mediastinal mass. VESSELS: HEART AND PERICARDIUM: Thoracic aorta is normal in size. Heart is normal in size. No pericardial effusion. Pulmonary arteries are normal in size. LOWER NECK, AXILLA: The visualized thyroid gland is unremarkable. No axillary mass or adenopathy. VISUALIZED ABDOMEN: Diffuse hypodense liver suggesting hepatic steatosis. CHEST WALL AND BONES: No chest wall mass. The visualized bony thorax is within normal limits. CT/CT chest w con IMPRESSION: *Exam essentially unchanged from prior study. *Soft tissue fullness right suprahilar region with adjacent scarring/atelectasis is a probably postradiation are stable. *Peripheral periseptal pulmonary emphysema. *No CT evidence of pulmonary metastasis. Scattered nonspecific tiny densities 2millimeter or less. *Diffusely hypodense liver suggesting hepatic steatosis.
== END 2021-05-09 11:01 | disposition home or self-care (01) ==
LOC: HO.CT 11:00
PROVIDERS: PCP Internal Medicine; Visit Provider Internal Medicine Medical Oncology
DX: C34.92 Malignant neoplasm of unspecified part of left bronchus or lung (principal)
CPT/HCPCS: 71260

== ENCOUNTER 2021-06-02 14:06 | Emergency (ER) | payer OTHER, SELFPAY ==
[2021-06-02 14:17] VITALS: BP 132/77; BP 132/84; PULSE 46; PULSE 47; RESP 13; TEMP 36.6; O2SAT 100; O2SAT 99; BMI 21.2
--- NOTE | 2021-06-02 14:29 | ECG_ITS ---
Test Reason : weakness Blood Pressure : / mmHG Vent. Rate : 044 BPM Atrial Rate : 044 BPM P-R Int : 168 ms QRS Dur : 068 ms QT Int : 464 ms P-R-T Axes : 069 054 055 degrees QTc Int : 396 ms Marked sinus bradycardia Abnormal ECG When compared with ECG of 09-FEB-2021 21:35, Vent. rate has decreased BY 85 BPM Non-specific change in ST segment in Lateral leads Referred By: Meredith Thomason Electronically Signed By:Javier Nielson
[2021-06-02 14:44] LABS: MANUAL DIFF FLAG NO
[2021-06-02 14:45] LABS: Basophils Absolute Auto 0.1 X10*3/uL (0.0-0.2); Eosinophils Absolute Auto 0.3 X10*3/uL (0.0-0.4); Hematocrit 33.7 % (37.0-47.0); Hemoglobin 10.9 g/dl (12.0-16.0); Imm Gran Abs Auto 0.01 X10*3/uL (0.00-0.03); Imm Gran Pct Auto 0.1 % (0.0-0.4); Lymphocytes Absolute Auto 3.2 X10*3/uL (1.2-4.9); Lymphocytes Percent Auto 40.8 % (20-40); Mean Corpuscular HGB Conc 32.3 g/dl (31.0-35.0); Mean Corpuscular Hemoglobin 28.2 pg (27.0-33.0); Mean Corpuscular Volume 87.1 fL (80.0-98.0); Monocytes Absolute Auto 0.4 X10*3/uL (0.1-1.2); Monocytes Percent Auto 4.7 % (2-11); Neutrophils Absolute Auto 3.8 x10*3/uL (2.0-8.3); Neutrophils Percent Auto 49.4 % (45-73); Platelet Count 233 X10*3/uL (160-400); Red Blood Count 3.87 X10*6/uL (4.20-5.50); Red Cell Distribution Width 11.9 % (11.0-16.0); White Blood Count 7.7 X10*3/uL (4.8-10.8)
--- NOTE | 2021-06-02 14:46 | ED_ITS ---
HPI - Weakness General Chief complaint: Weakness Stated complaint: general malaise Time Seen by Provider: 06/02/21 14:24 Source: patient and EMS Mode of arrival: EMS Limitations: no limitations History of Present Illness HPI Narrative: 56 yo female with a PMHx DM, orthostatic hypotension, asthma, radiation induced esophagitis, colitis, hypothyroid, opiate use disorder, fibromyalgia, adrenal insufficiency, lung adenocarcinoma s/p radiation therapy in remission, gastritis here with complaints of generalized weakness x 3 days, headaches, decreased oral intake, feeling dizzy with movement. Patient tells me yesterday she received 2L NS at home [facility]. Was told she was anemic. Denies any black or bloody stools, bloody emesis, bloody urine, abdominal pain, chest pain or SOB. Has muscle aches/joint pain all over. Related Data Home Medications Medication Instructions Recorded Confirmed alprazolam 1 mg tablet 1 mg PO TID PRN 12/17/19 05/05/21 clonidine HCl 0.1 mg tablet 0.1 mg PO TID 12/17/19 05/05/21 hydroxyzine pamoate 50 mg capsule 50 mg PO Q8H PRN 12/17/19 05/05/21 zolpidem 10 mg tablet 10 mg PO BEDTIME PRN 03/08/20 05/05/21 ascorbic acid (vitamin C) 500 mg 500 mg PO DAILY 02/10/21 05/05/21 tablet (Vitamin C) biotin 5,000 mcg sublingual tablet 5,000 mcg SUBLINGUAL DAILY 02/10/21 05/05/21 cholecalciferol (vitamin D3) 25 25 mcg PO DAILY 02/10/21 05/05/21 mcg (1,000 unit) tablet (Vitamin D3) loperamide 2 mg tablet 2 mg PO BID PRN 02/10/21 05/05/21 (Anti-Diarrheal (loperamide)) magnesium 500 mg tablet 500 mg PO DAILY 03/24/21 05/05/21 fluoxetine 40 mg PO DAILY 05/05/21 05/05/21 sumatriptan succinate 50 mg tablet 100 mg PO DAILY PRN 05/05/21 05/05/21 Previous Rx's Medication Instructions Recorded docusate sodium 100 mg capsule 100 mg PO BID #30 cap 07/19/20 (Colace) blood sugar diagnostic (FreeStyle #150 ea 07/21/20 Lite Strips) scopolamine base 1 mg over 3 days 1 patch TRANSDERMAL Q3D #5 ea 08/05/20 transdermal patch sucralfate 1 gram tablet 1 g PO BIDAC 7 Days #14 tab 02/11/21 ondansetron 4 mg disintegrating 4 mg PO Q8H PRN #30 tab 02/13/21 tablet levetiracetam 500 mg tablet 500 mg PO BID #180 tab 05/17/21 Allergies Allergy/AdvReac Type Severity Reaction Status Date / Time acetaminophen [Tylenol] AdvReac Unknown Abdominal Verified 03/24/21 16:51 Pain ibuprofen AdvReac Unknown Abdominal Verified 03/24/21 16:51 Pain Review of Systems Review of Systems: Yes all other systems are reviewed and are negative Constitutional: Constitutional: Reports no additional constitutional complaints, Reports body ache(s), Denies chills, Denies fever(s), Reports headache(s) and Reports weakness Eyes: Eyes: Reports no additional eye complaints and Denies change in vision ENT: Reports system reviewed and no additional complaints, except as documented, Reports dizziness, Reports headache(s), Denies nasal congestion, Denies nasal discharge and Denies neck pain Cardiovascular: Cardiovascular: Reports no additional cardiovascular complaints, Denies chest pain, Denies leg edema and Denies dyspnea Respiratory: Respiratory: Reports no additional respiratory complaints, Denies cough and Denies dyspnea Gastrointestinal: Gastrointestinal: Reports no additional gastrointestinal complaints, Denies abdominal pain, Denies diarrhea, Denies nausea and Denies vomiting Genitourinary: Genitourinary: Reports no additional female genitourinary complaints and Denies urinary incontinence Musculoskeletal: Musculoskeletal: Reports no additional musculoskeletal complaints, Denies back pain, Denies arthralgias, Denies joint swelling, Denies neck pain, Denies numbness and Denies tingling Integumentary/Breasts: Skin/Breast: Reports system reviewed and no additional complaints, except as docu and Denies rash Neurologic: Reports system reviewed and no additional complaints, except as documented, Denies Abnormal speech present, Reports dizziness, Reports headache(s), Denies numbness, Denies tingling and Reports weakness PMFSH Past Medical History Attestation statement: The following information was validated with the patient. Source: old records reviewed and nursing notes reviewed Medical History Adrenal insufficiency due to cancer therapy Aftercare following left shoulder joint replacement surgery Arthritis Asthma Colitis COPD (chronic obstructive pulmonary disease) Depression Diabetes type 2, uncontrolled Fibromyalgia History of lung cancer Hypothyroidism Multinodular goiter Newly diagnosed diabetes Non-small cell carcinoma of left lung, stage 4 Opioid abuse Opioid use disorder Pancreatitis (~02/2018) Pulmonary nodule Radiation-induced esophagitis Subclinical hyperthyroidism Surgical History History of History of cholecystectomy (~12/02/08) History of endometrial ablation (~07/25/06) History of esophageal dilatation (~02/24/18) History of esophagogastroduodenoscopy (EGD) (~09/04/19) Hx of blepharoplasty (~2018) Hx of shoulder surgery (~2014) Family History Family History Father Pancreatic cancer Mother Diabetes Brother Diabetes Sister Diabetes Social History Social History Household Members: Family Housing: [facility] Do you presently have visiting nurse or other home services: Yes Alcohol intake: never Patient Tobacco Use Status: Current someday Tobacco user Cigarettes Per Day: 2 Years Smoked: 30 Second Hand Smoke Exposure: No Use of substances other than those prescribed or required for medical reasons: No Advance Directives: Yes Advance Directives on File: Yes Advance Directives Date on File: 05/12/20 Patient : No service: No Current occupational status: unemployed and disabled Physical Exam Vital Signs: Vital Signs: Last Vital Signs Temp 97.8 F 06/02/21 16:00 Pulse 49 L 06/02/21 18:00 Resp 15 06/02/21 18:00 BP 138/48 L 06/02/21 18:00 Pulse Ox 98 06/02/21 18:00 BMI result Body Mass Index 21.2 Const: Other: pale, lethargic General: cooperative Orientation/consciousness: patient oriented x3 Limitations: no limitations HEENT: Other: pale tacky mucous membranes Head: Yes normal to inspection Ears: hearing grossly normal bilaterally and TM's normal bilaterally General nose exam: Normal external nose present Face and sinus: Yes normal facial exam Mouth: Normal oral and palatal mucosa present Throat: Yes posterior oropharynx normal, Yes tonsils normal and Yes uvula midline Eyes: General: appearance normal, both eyes and all related structures Pupils: Equal, round and reactive pupils present Neck: Neck: Yes normal visual inspection, Yes full ROM and Yes no lymphadenopathy Chest: Chest palpation & inspection: normal inspection of the chest Resp: Effort & Inspection: normal respiratory effort Auscultation: clear to auscultation bilaterally Cardio: Rate: bradycardic Rhythm: regular rhythm Peripheral pulses: Peripheral pulses 2+ throughout GI: Inspection: Yes normal to inspection Palpation (GI): Soft to palpation and nontender Auscultation: normal bowel sounds Back/Spine/Pelvis: Thoracic/Lumbar Spine: thoracic and lumbar spine normal to inspection Skin: General skin exam: no rashes or lesions noted Neuro: General: patient oriented x3, moves all extremities, normal sensation to monofilament and Unable to assess gait Cranial nerves: Yes Equal, round and reactive pupils present Cognition (Neuro): normal cognition Speech: No Abnormal speech present Gait exam (Neuro): Unable to assess gait Motor exam (neuro): 5/5 motor strength present throughout Extrem: General: Yes normal to inspection, Yes no pedal edema and Yes no calf tenderness Course Course Course Narrative: 56 yo female here with complaints of 3 days of generalized weakness, headaches, body aches/muscle aches, feeling dizzy and lightheaded with movement. On arrival patient appears pale, tachy MM, hr 40's. BP stable. Will need labs, UA, covid/flu testing, ekg, orthostatic VS. HR at baseline 80-100's. Reviewed patient medications. No beta blockers. Does us e clonidine 0.1mg daily with PRN as needed. Denies recent use of PRN. Will follow. 1730-orthostatics mildly positive. Normal saline bolus ordered. Hemoglobin is stable. Her labs are unremarkable. COVID and flu testing is negative. EKG shows sinus bradycardia. 1800-Patient ambulated to the bathroom to void but nursing forgot to get a urine sample from her. Labs are unremarkble. HR now in the 50s. Blood pressure stable. C/o continued MARS, body aches, muscle aches. Patient has h/o migraines and states this feels similar. She has no neurological deficits. Patient has allergy listed to tylenol/motrin but states she has had toradol in the past with no reaction. Will trial this. Anticipate discharge home. 1830-Patient able to ambulate to the bathroom with a steady gait. Does not feel she the need to provide a urine sample. Case was discussed with Dr Cespedes. Bradycardia thought to be secondary to clonidine. We discussed holding her dose of clonidine until Saturday then getting repeat set of vital signs discussing with her primary care doctor she should continue her home medications. Blood pressure has been stable during her visit. Patient feels improved when I discussed her plan to go home. Plan for discharge home. Reviewed worrisome signs and symptoms of when to return to the emergency department. Comfortable discharge home. MDM - Weakness Medical Records Attestation: I reviewed the patient's medical records. Lab Data Attestation: I reviewed the patient's lab results. Result diagrams: 06/02/21 14:39 06/02/21 15:12 Labs: Lab Results 06/02/21 06/02/21 06/02/21 Range/Units 14:39 14:45 14:45 WBC 7.7 (4.8-10.8) X10*3/uL RBC 3.87 L (4.20-5.50) X10*6/uL Hgb 10.9 L (12.0-16.0) g/dl Hct 33.7 L (37.0-47.0) % MCV 87.1 (80.0-98.0) fL MCH 28.2 (27.0-33.0) pg MCHC 32.3 (31.0-35.0) g/dl RDW 11.9 (11.0-16.0) % Plt Count 233 (160-400) X10*3/uL MPV 12.0 (9.4-12.3) fL Immature Gran % (Auto) 0.1 (0.0-0.4) % Neut % (Auto) 49.4 (45-73) % Lymph % (Auto) 40.8 H (20-40) % Morrison % (Auto) 4.7 (2-11) % Eos % (Auto) 4.0 (0-4) % Baso % (Auto) 1.0 (0-2) % Lymph # (Auto) 3.2 (1.2-4.9) X10*3/uL Morrison # (Auto) 0.4 (0.1-1.2) X10*3/uL Eos # (Auto) 0.3 (0.0-0.4) X10*3/uL Baso # (Auto) 0.1 (0.0-0.2) X10*3/uL Abs Immat Gran (auto) 0.01 (0.00-0.03) X10*3/uL Absolute Neuts (auto) 3.8 (2.0-8.3) x10*3/uL Absolute Nucleated RBC 0.000 (0.0-0.012) X10*3/uL Nucleated RBC % (auto) 0.0 (0.0-0.2) /100WBC PT 12.6 (9.9-13.0) SEC INR 1.1 (0.9-1.1) Sodium (135-145) mmol/L Potassium (3.3-5.1) mmol/L Chloride (96-108) mmol/L Carbon Dioxide (22-29) mmol/L Anion Gap (12-20) BUN (9-16) mg/dL Creatinine (0.5-1.4) mg/dL Estim Creat Clear Calc Estimated GFR Random Glucose (60-115) mg/dL Calcium (8.4-10.2) mg/dL Magnesium (1.6-2.6) mg/dL Total Bilirubin (0.0-1.0) mg/dL Direct Bilirubin (0.0-0.5) mg/dL AST (5-31) U/L ALT (0-31) U/L Alkaline Phosphatase (39-117) U/L Troponin I High Sens (<3.5-17.0) ng/L Total Protein (6.5-8.0) g/dL Albumin (3.5-5.0) g/dL COVID-19 (OZIEL) (Negative) COVID-19 Clin Com Influenza Type A (BROOKS) Negative (Negative) Influenza Type B (BROOKS) Negative (Negative) Influenza A & B Note See Note 06/02/21 06/02/21 06/02/21 Range/Units 14:45 15:12 15:12 WBC (4.8-10.8) X10*3/uL RBC (4.20-5.50) X10*6/uL Hgb (12.0-16.0) g/dl Hct (37.0-47.0) % MCV (80.0-98.0) fL MCH (27.0-33.0) pg MCHC (31.0-35.0) g/dl RDW (11.0-16.0) % Plt Count (160-400) X10*3/uL MPV (9.4-12.3) fL Immature Gran % (Auto) (0.0-0.4) % Neut % (Auto) (45-73) % Lymph % (Auto) (20-40) % Morrison % (Auto) (2-11) % Eos % (Auto) (0-4) % Baso % (Auto) (0-2) % Lymph # (Auto) (1.2-4.9) X10*3/uL Morrison # (Auto) (0.1-1.2) X10*3/uL Eos # (Auto) (0.0-0.4) X10*3/uL Baso # (Auto) (0.0-0.2) X10*3/uL Abs Immat Gran (auto) (0.00-0.03) X10*3/uL Absolute Neuts (auto) (2.0-8.3) x10*3/uL Absolute Nucleated RBC (0.0-0.012) X10*3/uL Nucleated RBC % (auto) (0.0-0.2) /100WBC PT (9.9-13.0) SEC INR (0.9-1.1) Sodium 137 (135-145) mmol/L Potassium 4.9 (3.3-5.1) mmol/L Chloride 104 (96-108) mmol/L Carbon Dioxide 26 (22-29) mmol/L Anion Gap 12 (12-20) BUN 13 (9-16) mg/dL Creatinine 0.92 (0.5-1.4) mg/dL Estim Creat Clear Calc 56.4 Estimated GFR > 60 Random Glucose 175 H (60-115) mg/dL Calcium 9.0 D (8.4-10.2) mg/dL Magnesium 1.8 (1.6-2.6) mg/dL Total Bilirubin 0.6 (0.0-1.0) mg/dL Direct Bilirubin 0.2 (0.0-0.5) mg/dL AST 14 (5-31) U/L ALT 11 (0-31) U/L Alkaline Phosphatase 87 (39-117) U/L Troponin I High Sens < 3.5 (<3.5-17.0) ng/L Total Protein 6.1 L (6.5-8.0) g/dL Albumin 3.6 (3.5-5.0) g/dL COVID-19 (OZIEL) Negative (Negative) COVID-19 Clin Com See Note Influenza Type A (BROOKS) (Negative) Influenza Type B (BROOKS) (Negative) Influenza A & B Note ECG Data Attestation: I personally reviewed and interpreted this ECG as follows: ECG interpretation date: 06/02/21 ECG interpretation time: 14:51 Interpretation: Sinus bradycardia with rate of 44, normal GA, normal QRS, normal QT Discharge Plan Discharge Clinical Impression: Acute dehydration Patient Disposition: Home, Self-Care Instructions: Dehydration (ED) Additional Instructions: Your lab work all looks baseline for you Your heart rate was running low. We believe this is from your clonidine and it is recommended that you hold this until Saturday and follow-up with your primary care doctor to have your heart rate rechecked Change positions slowly. Stay well hydrated Prescriptions: No Action (DME) FreeStyle Lite Strips Strip See Rx Instructions .MEDSUPPLY Qty: 150 6RF Rx Instructions: 4 times a day clonidine HCl 0.1 mg tablet 0.1 mg PO TID 0RF alprazolam 1 mg tablet 1 mg PO TID PRN (Reason: Anxiety) 0RF hydroxyzine pamoate 50 mg capsule 50 mg PO Q8H PRN (Reason: Anxiety) 0RF scopolamine base 1 mg over 3 days Patch 3 Day 1 patch TRANSDERMAL Q3D Qty: 5 2RF magnesium 500 mg Tablet 500 mg PO DAILY 0RF fluoxetine 40 mg PO DAILY 0RF sumatriptan succinate 50 mg tablet 100 mg PO DAILY PRN (Reason: migraine headache) 0RF Rx Instructions: do not exceed 4 doses per 24 hrs levetiracetam 500 mg tablet 500 mg PO BID Qty: 180 1RF docusate sodium [Colace] 100 mg capsule 100 mg PO BID Qty: 30 0RF ascorbic acid (vitamin C) [Vitamin C] 500 mg Tablet 500 mg PO DAILY 0RF cholecalciferol (vitamin D3) [Vitamin D3] 25 mcg (1,000 unit) Tablet 25 mcg PO DAILY 0RF biotin 5,000 mcg Tablet, Sublingual 5,000 mcg SUBLINGUAL DAILY 0RF loperamide [Anti-Diarrheal (loperamide)] 2 mg tablet 2 mg PO BID PRN (Reason: Diarrhea) 0RF sucralfate 1 gram Tablet 1 g PO BIDAC 7 Days Qty: 14 0RF ondansetron 4 mg tablet,disintegrating 4 mg PO Q8H PRN (Reason: nausea and vomiting) Qty: 30 0RF zolpidem 10 mg tablet 10 mg PO BEDTIME PRN (Reason: Sleep) 0RF Referrals: Physician,Unknown J [Primary Care Provider] - 2 days Interventions: ED Discharge Assessment Last Done: 06/02/21 19:22 Discharge Date/Time: 06/02/21 19:24
[2021-06-02 14:58] VITALS: BP 157/85; PULSE 44
[2021-06-02 14:59] VITALS: BP 118/73; PULSE 47
[2021-06-02 15:01] VITALS: BP 118/71; PULSE 49
[2021-06-02 15:01] LABS: INTERNATIONAL NORM RATIO 1.1 (0.9-1.1); Prothrombin Time 12.6 SEC (9.9-13.0)
[2021-06-02 15:07] LABS: COVID-19 Test Negative (Negative)
[2021-06-02 15:14] LABS: Influenza A Negative (Negative); Influenza B2 Negative (Negative)
[2021-06-02 15:34] LABS: Alanine Aminotransferase 11 U/L (0-31); Albumin Level 3.6 g/dL (3.5-5.0); Alkaline Phosphatase 87 U/L (39-117); Anion Gap 12 (12-20); Aspartate Amino Transferase 14 U/L (5-31); Bilirubin Direct 0.2 mg/dL (0.0-0.5); Bilirubin Total 0.6 mg/dL (0.0-1.0); Blood Urea Nitrogen 13 mg/dL (9-16); Carbon Dioxide 26 mmol/L (22-29); Chloride 104 mmol/L (96-108); Creatinine Clr Calc Pharmacy 56.4; Estimated Glomerular Filt Rate > 60; Glucose Random 175 mg/dL (60-115); Magnesium 1.8 mg/dL (1.6-2.6); Potassium 4.9 mmol/L (3.3-5.1); Sodium 137 mmol/L (135-145); Total Protein 6.1 g/dL (6.5-8.0)
[2021-06-02] MEDS: 0.9 % Sodium Chloride 1,000 ML 999 ML IVCONT ×2 (15:44→17:31)
[2021-06-02 16:00] VITALS: BP 118/72; PULSE 52; RESP 12; TEMP 36.6; O2SAT 99
[2021-06-02 16:15] LABS: Troponin-I High Sensitivity < 3.5 ng/L (<3.5-17.0)
[2021-06-02 18:00] VITALS: BP 138/48; PULSE 49; RESP 15; O2SAT 98
[2021-06-02] MEDS: Ketorolac Tromethamine 30 MG/ML VIAL IVPUSH (18:25)
--- NOTE | 2021-06-02 19:23 | PC.NURSE ---
D/c papers and instructions given to pt Pt verbalized understanding and states will f/u with PCP on Denies any itching, SOB, pain NAD
== END 2021-06-02 19:24 | disposition home or self-care (01) ==
PROVIDERS: Nurse Practitioner Family; Emergency Provider Emergency Medicine
DX: E86.0 Dehydration (principal); R53.1 Weakness; R51.9 Headache, unspecified; Z20.822 Contact with and (suspected) exposure to COVID-19; E11.9 Type 2 diabetes mellitus without complications; F11.10 Opioid abuse, uncomplicated; F17.200 Nicotine dependence, unspecified, uncomplicated; Z85.118 Personal history of other malignant neoplasm of bronchus and lung
CPT/HCPCS: 80048; 80076; 83735; 84484; 85025; 85610; 87502; 87635; 93005; 96361; 96374; 99284; 99285; J1885

== ENCOUNTER 2021-07-21 12:04 | Emergency (ER) | payer OTHER, SELFPAY ==
--- NOTE | ~2021-07-21 | CT_ITS ---
Indication: Pain, fall EXAMINATION: CT cervical spine brain and facial bones. This CT examination was performed using dose optimization techniques as appropriate, variously including the following: *Automated exposure control *Adjustment of mA and/or kV according to patient size (this includes techniques or standardized protocols for targeted exams where dose is matched to indication/reason for exam; i.e. extremities or head) *Use of iterative reconstruction technique. Radiation dose 298, 233 and 616. Comparison previous dated 01/31/2021., CT chest 04/15/2020, CT brain 05/29/2020 CT cervical spine; Motion does degrade imaging.. There is no acute fracture or location on the imaging submitted On the inferior most cuts there is a density partially imaged in the right upper lung. Grossly comparable to CT from 04/15/2020. Of course this is not fully evaluated only the inferior most cuts are showing this. The full lung abnormality is not evaluated. CT from 04/15/2020 did recommend a short-term follow-up CT brain; There is no midline shift. There is no mass effect. There is no hemorrhage. The basal cisterns appear patent. The posterior fossa is grossly within normal limits. There is no extra-axial collection. The sheth-white matter is felt to be within normal limits. No evidence for fracture on the bone windows. Facial bones; Left nasal bone fracture. Age-indeterminate. No other fracture is seen. CT/CT cervical spine wo con IMPRESSION: Left nasal bone fracture. Age-indeterminate. Negative acute noncontrast CT of the brain. Motion limits evaluation of the cervical spine. No evidence of fracture or dislocation on the imaging submitted. Correlation recommended. Repeat if indicated. Partially imaged right upper lung abnormality. Recommend CT of the chest for full evaluation and comparison to previous of 04/15/2020. This may be done on an outpatient basis.
[2021-07-21 12:40] VITALS: BP 106/45; PULSE 116; RESP 18; TEMP 36.6; O2SAT 98; BMI 23.0
--- NOTE | 2021-07-21 12:44 | ECG_ITS ---
Test Reason : cp Blood Pressure : / mmHG Vent. Rate : 114 BPM Atrial Rate : 114 BPM P-R Int : 138 ms QRS Dur : 064 ms QT Int : 332 ms P-R-T Axes : 071 054 050 degrees QTc Int : 457 ms Sinus tachycardia Possible Left atrial enlargement Borderline ECG When compared with ECG of 02-JUN-2021 14:51, Vent. rate has increased BY 70 BPM Referred By: Generic ED Physician Electronically Signed By:IGOR HOROWITZ MD
[2021-07-21 12:57] LABS: MANUAL DIFF FLAG NO
[2021-07-21 13:05] LABS: Basophils Percent Auto 0.4 % (0-2); Eosinophils Absolute Auto 0.1 X10*3/uL (0.0-0.4); Eosinophils Percent Auto 0.6 % (0-4); Hematocrit 35.5 % (37.0-47.0); Hemoglobin 11.7 g/dl (12.0-16.0); Imm Gran Abs Auto 0.02 X10*3/uL (0.00-0.03); Imm Gran Pct Auto 0.3 % (0.0-0.4); Lymphocytes Absolute Auto 1.3 X10*3/uL (1.2-4.9); Lymphocytes Percent Auto 16.9 % (20-40); Mean Corpuscular Hemoglobin 28.4 pg (27.0-33.0); Mean Corpuscular Volume 86.2 fL (80.0-98.0); Mean Platelet Volume 12.5 fL (9.4-12.3); Monocytes Absolute Auto 0.4 X10*3/uL (0.1-1.2); Monocytes Percent Auto 4.8 % (2-11); Platelet Count 157 X10*3/uL (160-400); Red Blood Count 4.12 X10*6/uL (4.20-5.50); White Blood Count 7.7 X10*3/uL (4.8-10.8)
[2021-07-21 13:18] LABS: Anion Gap 14 (12-20); Blood Urea Nitrogen 8 mg/dL (9-16); Calcium 9.7 mg/dL (8.4-10.2); Carbon Dioxide 21 mmol/L (22-29); Chloride 105 mmol/L (96-108); Creatinine Clr Calc Pharmacy 52.4; Estimated Glomerular Filt Rate 58; Glucose Random 235 mg/dL (60-115); Sodium 135 mmol/L (135-145)
[2021-07-21 13:23] LABS: Troponin-I High Sensitivity < 3.5 ng/L (<3.5-17.0)
[2021-07-21 16:00] VITALS: BP 108/72; PULSE 113; RESP 17; O2SAT 97
--- NOTE | 2021-07-21 16:01 | PC.NURSE ---
RE EVAL, WALKED OUTSIDE FOR FRESH AIR, C/O MARS, VITALS RE DONE, ALERT, SPEECH CLEAR, SPOKE W CHLOE ABOUT CT'S, NO THINNERS
[2021-07-21 22:00] VITALS: O2SAT 97
[2021-07-21 22:33] VITALS: BP 106/77; PULSE 100; RESP 16; TEMP 37.2; O2SAT 99
--- NOTE | 2021-07-21 22:41 | PC.NURSE ---
Pt a+ox3, Pt with stage 3-4 Esophageal/Lung CA, Pt had syncopal episode approx % forward this AM, + head/face strike with bloody noes, Pt fe
--- NOTE | 2021-07-21 22:43 | PC.NURSE ---
Pt A+Ox3, with stage 4 Esophageal and [place] CA, Pt had syncopal episode at approx 5am, Pt fell forward hitting face with + epistaxis, then again approx an hour later, Pt c/o back pain and migraine head ache
--- NOTE | 2021-07-21 23:13 | ED_ITS ---
HPI - Syncope General Chief Complaint: Syncope Stated Complaint: fainted/ fall/head INJ Time Seen by Provider: 07/21/21 15:40 Source: patient Mode of arrival: ambulatory Limitations: no limitations History of Present Illness HPI narrative: Patient history of seizures orthostatic hypertension history of narcotic use diabetes esophageal and lung cancer last seizure was about 2 years ago patient is on Keppra 500 mg twice daily today earlier patient having headache for last 3 days felt lightheaded and passed out got a 2nd time same thing happen when she was in thebedroom try to go to bathroom felt lightheaded and pass out but this time patient confuse was incontinent of the urine no tongue bite has some bleedi ng from the right nostril Related Data Home Medications Medication Instructions Recorded Confirmed alprazolam 1 mg tablet 1 mg PO TID PRN 12/17/19 05/05/21 clonidine HCl 0.1 mg tablet 0.1 mg PO TID 12/17/19 05/05/21 hydroxyzine pamoate 50 mg capsule 50 mg PO Q8H PRN 12/17/19 05/05/21 zolpidem 10 mg tablet 10 mg PO BEDTIME PRN 03/08/20 05/05/21 ascorbic acid (vitamin C) 500 mg 500 mg PO DAILY 02/10/21 05/05/21 tablet (Vitamin C) biotin 5,000 mcg sublingual tablet 5,000 mcg SUBLINGUAL DAILY 02/10/21 05/05/21 cholecalciferol (vitamin D3) 25 25 mcg PO DAILY 02/10/21 05/05/21 mcg (1,000 unit) tablet (Vitamin D3) loperamide 2 mg tablet 2 mg PO BID PRN 02/10/21 05/05/21 (Anti-Diarrheal (loperamide)) magnesium 500 mg tablet 500 mg PO DAILY 03/24/21 05/05/21 fluoxetine 40 mg PO DAILY 05/05/21 05/05/21 sumatriptan succinate 50 mg tablet 100 mg PO DAILY PRN 05/05/21 05/05/21 Previous Rx's Medication Instructions Recorded docusate sodium 100 mg capsule 100 mg PO BID #30 cap 07/19/20 (Colace) blood sugar diagnostic (FreeStyle #150 ea 07/21/20 Lite Strips) scopolamine base 1 mg over 3 days 1 patch TRANSDERMAL Q3D #5 ea 08/05/20 transdermal patch sucralfate 1 gram tablet 1 g PO BIDAC 7 Days #14 tab 02/11/21 ondansetron 4 mg disintegrating 4 mg PO Q8H PRN #30 tab 02/13/21 tablet levetiracetam 500 mg tablet 500 mg PO BID #180 tab 05/17/21 oxycodone 5 mg tablet 5 mg PO Q6H PRN #20 tab 07/22/21 Allergies Allergy/AdvReac Type Severity Reaction Status Date / Time acetaminophen [Tylenol] AdvReac Unknown Abdominal Verified 03/24/21 16:51 Pain ibuprofen AdvReac Unknown Abdominal Verified 03/24/21 16:51 Pain Review of Systems Review of Systems: Yes all other systems are reviewed and are negative [facility] Past Medical History Medical History (Updated 07/22/21 @ 00:22 by Steven Manjarrez MD) Adrenal insufficiency due to cancer therapy Aftercare following left shoulder joint replacement surgery Arthritis Asthma Colitis COPD (chronic obstructive pulmonary disease) Depression Diabetes type 2, uncontrolled Fibromyalgia History of lung cancer Hypothyroidism Multinodular goiter Newly diagnosed diabetes Non-small cell carcinoma of left lung, stage 4 Opioid abuse Opioid use disorder Pancreatitis (~02/2018) Pulmonary nodule Radiation-induced esophagitis Subclinical hyperthyroidism Surgical History History of History of cholecystectomy (~12/02/08) History of endometrial ablation (~07/25/06) History of esophageal dilatation (~02/24/18) History of esophagogastroduodenoscopy (EGD) (~09/04/19) Hx of blepharoplasty (~2018) Hx of shoulder surgery (~2014) Family History Family History Father Pancreatic cancer Mother Diabetes Brother Diabetes Sister Diabetes Social History Social History Household Members: Family Housing: Condominium Do you presently have visiting nurse or other home services: Yes Alcohol intake: never Patient Tobacco Use Status: Current someday Tobacco user Cigarettes Per Day: 2 Years Smoked: 30 Second Hand Smoke Exposure: No Advance Directives: Yes Advance Directives on File: Yes Advance Directives Date on File: 05/12/20 service: No Current occupational status: unemployed and disabled Physical Exam Vital Signs: Vital Signs: Last Vital Signs Temp 98.2 F 07/21/21 23:26 Pulse 91 07/21/21 23:26 Resp 16 07/21/21 23:26 BP 142/87 H 07/21/21 23:26 Pulse Ox 98 07/21/21 23:26 BMI result Body Mass Index 23.0 Appearance: Alert. Oriented X3. No acute distress. Eyes: PERRLA, No Nystagmus ENT: Pharynx normal. Oral Mucosa moist clotted blood at upper lip, teeth are intact no tongue laceration Neck: Normal inspection. Neck supple. CVS: Normal heart rate and rhythm. Pulses normal. Respiratory: No respiratory distress. Equal air entry bilateral, no wheezing/rales/rhonchi Abdomen: Soft and nontender. Bowel sounds are present, no mass palpable, no CVA tenderness Skin: Skin warm and dry. Normal skin color. Normal skin turgor. Extremities: No lower extremity edema. No calf tenderness Neuro: Oriented X 3. No motor deficit. No sensory deficit.No cerebellar signs , cranial nerves II-XII intact MDM - Syncope MDM Narrative Medical decision making narrative: Patient with syncope episode likely orthostatic hypotension questionable seizure workup is negative at this time patient advised to follow with neurologist and report to the ER if recurrence of seizures Lab Data Attestation: I reviewed the patient's lab results. Result diagrams: 07/21/21 12:53 07/21/21 12:53 Labs: Lab Results 07/21/21 07/21/21 07/21/21 Range/Units 12:53 12:53 12:53 WBC 7.7 (4.8-10.8) X10*3/uL RBC 4.12 L (4.20-5.50) X10*6/uL Hgb 11.7 L (12.0-16.0) g/dl Hct 35.5 L (37.0-47.0) % MCV 86.2 (80.0-98.0) fL MCH 28.4 (27.0-33.0) pg MCHC 33.0 (31.0-35.0) g/dl RDW 13.0 (11.0-16.0) % Plt Count 157 L D (160-400) X10*3/uL MPV 12.5 H (9.4-12.3) fL Immature Gran % (Auto) 0.3 (0.0-0.4) % Neut % (Auto) 77.0 H (45-73) % Lymph % (Auto) 16.9 L (20-40) % [place] % (Auto) 4.8 (2-11) % Eos % (Auto) 0.6 (0-4) % Baso % (Auto) 0.4 (0-2) % Lymph # (Auto) 1.3 (1.2-4.9) X10*3/uL [place] # (Auto) 0.4 (0.1-1.2) X10*3/uL Eos # (Auto) 0.1 (0.0-0.4) X10*3/uL Baso # (Auto) 0.0 (0.0-0.2) X10*3/uL Abs Immat Gran (auto) 0.02 (0.00-0.03) X10*3/uL Absolute Neuts (auto) 6.0 (2.0-8.3) x10*3/uL Absolute Nucleated RBC 0.000 (0.0-0.012) X10*3/uL Nucleated RBC % (auto) 0.0 (0.0-0.2) /100WBC Sodium 135 (135-145) mmol/L Potassium 5.0 (3.3-5.1) mmol/L Chloride 105 (96-108) mmol/L Carbon Dioxide 21 L (22-29) mmol/L Anion Gap 14 (12-20) BUN 8 L (9-16) mg/dL Creatinine 0.99 (0.5-1.4) mg/dL Estim Creat Clear Calc 52.4 Estimated GFR 58 Random Glucose 235 H (60-115) mg/dL Calcium 9.7 D (8.4-10.2) mg/dL Troponin I High Sens < 3.5 (<3.5-17.0) ng/L ECG Data Attestation: I personally reviewed and interpreted this ECG as follows: Interpretation: Sinus tachycardia heart rate 114 beats per minute no acute ST wave changes n ormal interval normal axis no acute ST-T change Discharge Plan Discharge Clinical Impression: Syncope and collapse Patient Disposition: Home, Self-Care Instructions: Syncope (ED) Additional Instructions: take your meds as prescribed by pcp Follow with your neurologist Use Afrin for nasal decongestion as prescribed Prescriptions: New oxycodone 5 mg tablet 5 mg PO Q6H PRN (Reason: pain) Qty: 20 0RF No Action (DME) FreeStyle Lite Strips Strip See Rx Instructions .MEDSUPPLY Qty: 150 6RF Rx Instructions: 4 times a day clonidine HCl 0.1 mg tablet 0.1 mg PO TID 0RF alprazolam 1 mg tablet 1 mg PO TID PRN (Reason: Anxiety) 0RF hydroxyzine pamoate 50 mg capsule 50 mg PO Q8H PRN (Reason: Anxiety) 0RF scopolamine base 1 mg over 3 days Patch 3 Day 1 patch TRANSDERMAL Q3D Qty: 5 2RF magnesium 500 mg Tablet 500 mg PO DAILY 0RF fluoxetine 40 mg PO DAILY 0RF sumatriptan succinate 50 mg tablet 100 mg PO DAILY PRN (Reason: migraine headache) 0RF Rx Instructions: do not exceed 4 doses per 24 hrs levetiracetam 500 mg tablet 500 mg PO BID Qty: 180 1RF docusate sodium [Colace] 100 mg capsule 100 mg PO BID Qty: 30 0RF ascorbic acid (vitamin C) [Vitamin C] 500 mg Tablet 500 mg PO DAILY 0RF cholecalciferol (vitamin D3) [Vitamin D3] 25 mcg (1,000 unit) Tablet 25 mcg PO DAILY 0RF biotin 5,000 mcg Tablet, Sublingual 5,000 mcg SUBLINGUAL DAILY 0RF loperamide [Anti-Diarrheal (loperamide)] 2 mg tablet 2 mg PO BID PRN (Reason: Diarrhea) 0RF sucralfate 1 gram Tablet 1 g PO BIDAC 7 Days Qty: 14 0RF ondansetron 4 mg tablet,disintegrating 4 mg PO Q8H PRN (Reason: nausea and vomiting) Qty: 30 0RF zolpidem 10 mg tablet 10 mg PO BEDTIME PRN (Reason: Sleep) 0RF Interventions: ED Discharge Assessment Last Done: 07/22/21 00:37 Discharge Date/Time: 07/22/21 00:37
[2021-07-21 23:21] VITALS: BP 117/83; BP 126/78; BP 142/87; PULSE 91; PULSE 92; PULSE 96
[2021-07-21 23:26] VITALS: BP 142/87; PULSE 91; RESP 16; TEMP 36.8; O2SAT 98
[2021-07-21] MEDS: levETIRAcetam 1,000 MG TABLET 1000 MG PO (23:40)
[2021-07-22] MEDS: Oxymetazoline HCl 0.05 % Nasal 15 ML SPRAY 2 SPRAY NOSTRIL-B (00:08)
== END 2021-07-22 00:37 | disposition home or self-care (01) ==
PROVIDERS: Emergency Provider Internal Medicine; PCP Internal Medicine
DX: R55 Syncope and collapse (principal); S02.2XXA Fracture of nasal bones, initial encounter for closed fracture; E11.9 Type 2 diabetes mellitus without complications; J44.9 Chronic obstructive pulmonary disease, unspecified; F11.10 Opioid abuse, uncomplicated; F17.210 Nicotine dependence, cigarettes, uncomplicated; Z85.118 Personal history of other malignant neoplasm of bronchus and lung; Z91.81 History of falling; Z79.899 Other long term (current) drug therapy; X58.XXXA Exposure to other specified factors, initial encounter; Y93.9 Activity, unspecified; Y92.9 Unspecified place or not applicable; Y99.9 Unspecified external cause status
CPT/HCPCS: 36415; 70450; 70486; 72125; 80048; 84484; 85025; 93005; 99284

== ENCOUNTER → 2021-11-01 15:04 | Outpatient (BNVA) | payer OTHER, SELFPAY | PROVIDERS: PCP Internal Medicine; Visit Provider Student in an Organized Health Care Education/Training Program | DX: M06.9 Rheumatoid arthritis, unspecified (principal); G89.4 Chronic pain syndrome; D64.9 Anemia, unspecified | CPT/HCPCS: 99202 ==

== ENCOUNTER 2022-01-29 11:12 | Outpatient (REF) | payer OTHER, SELFPAY ==
--- NOTE | ~2022-01-29 | CT_ITS ---
EXAMINATION: CT CHEST WITH CONTRAST CLINICAL INFORMATION: Follow-up lung cancer COMPARISON: Previous chest CT May 2021 TECHNIQUE: Multidetector volumetric CT imaging of the chest was obtained after the administration of 65 mL of Omnipaque 350 intravenous contrast without immediate adverse reactions. Axial MIP volume rendering provided. Sagittal and coronal reformatted images were obtained. This CT examination was performed using dose optimization techniques as appropriate, variously including the following: *Automated exposure control *Adjustment of mA and/or kV according to patient size (this includes techniques or standardized protocols for targeted exams where dose is matched to indication/reason for exam; i.e. extremities or head) *Use of iterative reconstruction technique DLP: 1 4 mGy-cm FINDINGS: LUNGS: There is evidence of emphysema. There is central right upper lobe/suprahilar consolidation, traction bronchiectasis and scarring. There is also some involvement of the superior segment of the right lower lobe. This is similar to previous exams and likely represents post radiation change. No new pulmonary nodule. There are small soft tissue densities seen in the left side of the ace/proximal left mainstem bronchus and distal right mainstem bronchus for example axial image 167 and 172 on the left and 175 on the right. These are new from previous exam. No other endobronchial or endotracheal lesion. MEDIASTINUM: There is increased attenuation and obscured fat planes seen in the mediastinum. This is similar to previous exams. No bulky adenopathy is seen. Normal heart size. No pericardial effusion. No coronary artery calcification. PLEURA: There is no pleural effusion. No pleural mass or thickening. AXILLA: No lymphadenopathy. UPPER ABDOMEN: The gallbladder has been removed. OSSEOUS STRUCTURES: Degenerative changes of the spine. CT/CT chest w IV con IMPRESSION: Stable probable post radiation changes to the right lung. Emphysema. New soft tissue densities in the left ace/left proximal mainstem bronchus and distal right mainstem bronchus. It is uncertain whether this represents patient secretions. Short-term low-dose follow-up exam could be performed Fleischner guidelines were followed.
[2022-01-29 11:44] LABS: MANUAL DIFF FLAG NO
[2022-01-29 11:46] LABS: Basophils Absolute Auto 0.1 X10*3/uL (0.0-0.2); Eosinophils Absolute Auto 0.5 X10*3/uL (0.0-0.4); Eosinophils Percent Auto 5.5 % (0-4); Hemoglobin 11.7 g/dl (12.0-16.0); Imm Gran Abs Auto 0.01 X10*3/uL (0.00-0.03); Imm Gran Pct Auto 0.1 % (0.0-0.4); Lymphocytes Absolute Auto 3.5 X10*3/uL (1.2-4.9); Mean Corpuscular HGB Conc 32.5 g/dl (31.0-35.0); Mean Corpuscular Hemoglobin 30.2 pg (27.0-33.0); Mean Platelet Volume 12.2 fL (9.4-12.3); Monocytes Absolute Auto 0.7 X10*3/uL (0.1-1.2); Monocytes Percent Auto 7.5 % (2-11); Neutrophils Percent Auto 45.9 % (45-73); Platelet Count 187 X10*3/uL (160-400); Red Blood Count 3.87 X10*6/uL (4.20-5.50); Red Cell Distribution Width 13.1 % (11.0-16.0); White Blood Count 8.8 X10*3/uL (4.8-10.8)
[2022-01-29 12:03] LABS: Alanine Aminotransferase 7 U/L (0-31); Albumin Level 4.2 g/dL (3.5-5.0); Alkaline Phosphatase 77 U/L (39-117); Anion Gap 12 (12-20); Aspartate Amino Transferase 10 U/L (5-31); Bilirubin Total 0.3 mg/dL (0.0-1.0); Blood Urea Nitrogen 9 mg/dL (9-16); C Reactive Protein 0.67 mg/dL (< or = 0.50); Calcium 9.4 mg/dL (8.4-10.2); Carbon Dioxide 32 mmol/L (22-29); Chloride 103 mmol/L (96-108); Estimated Glomerular Filt Rate > 60; Glucose Random 127 mg/dL (60-115); Potassium 3.9 mmol/L (3.3-5.1); Sodium 143 mmol/L (135-145)
[2022-01-29] MEDS: iohexoL 350 MG/ML 100 ML INFUS..BTL 85 ML IV (12:31)
[2022-01-29 12:49] LABS: Rheumatoid Factor < 15.0 IU/mL (<15.0)
[2022-01-29 12:52] LABS: Erythrocyte Sedimentation Rate 23 MM/HR (0-20)
[2022-01-30 15:01] LABS: Cyclic Citrullinated Peptide <16 UNITS
== END 2022-01-29 11:13 | disposition home or self-care (01) ==
LOC: HO.CT 11:12
PROVIDERS: Student in an Organized Health Care Education/Training Program; PCP Internal Medicine; Visit Provider Internal Medicine Medical Oncology
DX: C34.92 Malignant neoplasm of unspecified part of left bronchus or lung (principal); M06.9 Rheumatoid arthritis, unspecified
CPT/HCPCS: 36415; 71260; 80053; 85025; 85652; 86140; 86200; 86431; Q9967

== ENCOUNTER 2022-08-29 14:15 | Outpatient (REF) | payer OTHER, SELFPAY ==
--- NOTE | ~2022-08-29 | CT_ITS ---
EXAMINATION: CT CHEST WITH CONTRAST CLINICAL INFORMATION: Restaging non-small cell lung cancer. COMPARISON: Chest CTs dating between January 29, 2022 and February 01, 2017. TECHNIQUE: Multidetector volumetric CT imaging of the chest was obtained after the administration of 65 mL of Omnipaque 350 intravenous contrast without immediate adverse reactions. Axial MIP volume rendering provided. Sagittal and coronal reformatted images were obtained. This CT examination was performed using dose optimization techniques as appropriate, variously including the following: *Automated exposure control *Adjustment of mA and/or kV according to patient size (this includes techniques or standardized protocols for targeted exams where dose is matched to indication/reason for exam; i.e. extremities or head) *Use of iterative reconstruction technique DLP: 95 mGy-cm FINDINGS: LUNGS: Soft tissue density in the right hilar region and right mediastinum surrounds the right mainstem bronchus, with loss of fat planes between the density, bronchus, vascular structures, and esophagus. Airspace disease in the right hilar region is a grade 2 in AP orientation, and there is associated bronchiectasis. These findings appear similar compared with January 29, 2022. No new lung nodule is identified. Mild paraseptal emphysema with an apical predominance, unchanged. Patent central bronchi. MEDIASTINUM: Appears unremarkable. No significant coronary arterial calcification. Heart normal in size. No pericardial effusion. PLEURA: There is no pleural effusion. No pleural mass or thickening. AXILLA: No lymphadenopathy by size criteria. UPPER ABDOMEN: Status post cholecystectomy. OSSEOUS STRUCTURES: No lytic or sclerotic bony lesion identified. CT/CT chest w IV con IMPRESSION: No significant radiographic change compared with January 29, 2022. Findings consistent with post radiation changes involving a right hilar/mediastinal soft tissue mass as detailed above.
[2022-08-29] MEDS: iohexoL 350 MG/ML 100 ML INFUS..BTL IV (14:53)
== END 2022-08-29 14:16 | disposition home or self-care (01) ==
LOC: HO.CT 14:15
PROVIDERS: Visit Provider Internal Medicine Medical Oncology
DX: C34.92 Malignant neoplasm of unspecified part of left bronchus or lung (principal)
CPT/HCPCS: 71260; Q9967

== ENCOUNTER 2022-12-07 13:01 | Outpatient (AMB) | payer OTHER, SELFPAY ==
--- NOTE | 2022-12-07 13:02 | A.OFFVIS_ITS ---
Intake Vital Signs 12/07/22 13:03 Height 5 ft 4 in Weight 136 lb 10.986 oz BMI 23.5 BP 147/86 H Blood Pressure Location Rt brachial Position Sitting Pulse 102 H Pulse Source Doppler Pulse Oximetry (%) 98 Oxygen Delivery Method Room Air Intake Visit Reasons: COPD/Hx of Lung CA Allergies acetaminophen [Tylenol] Adverse Reaction (Unknown, Verified 12/07/22 13:07) Abdominal Pain ibuprofen Adverse Reaction (Unknown, Verified 12/07/22 13:07) Abdominal Pain HPI COPD/Hx of Lung CA HPI Details 57-year-old lady, active 30+ pack-year s moker, with underlying history of lung cancer status post chemotherapy, now under oncology care referred for evaluation of her underlying pulmonary concerns. Patient complains of intermittent dyspnea on exertion. She denies productive cough or wheezing. Currently she is on no bronchodilator therapy. She does not have recent pulmonary function testing. [facility] Medical History Adrenal insufficiency due to cancer therapy Aftercare following left shoulder joint replacement surgery Arthritis Asthma Colitis COPD (chronic obstructive pulmonary disease) Depression Diabetes type 2, uncontrolled Fibromyalgia History of lung cancer Hypothyroidism Multinodular goiter Newly diagnosed diabetes Non-small cell carcinoma of left lung, stage 4 Opioid abuse Opioid use disorder Pancreatitis (~02/2018) Pulmonary nodule Radiation-induced esophagitis Subclinical hyperthyroidism Surgical History History of History of cholecystectomy (~12/02/08) History of endometrial ablation (~07/25/06) History of esophageal dilatation (~02/24/18) History of esophagogastroduodenoscopy (EGD) (~09/04/19) Hx of blepharoplasty (~2018) Hx of shoulder surgery (~2014) Family History Father Pancreatic cancer Mother Diabetes Skin cancer Rheumatoid arthritis Brother Diabetes Sister Diabetes Other History of thyroid disorder Social History Household Members: Family [facility] Do you presently have visiting nurse or other home services: Yes Alcohol intake: former Year quit: 1999 Patient Tobacco Use Status: Current someday Tobacco user Cigarettes Per Day: 4 Years Smoked: 30 Second Hand Smoke Exposure: No Advance Directives Date on File: 05/12/20 service: No Current occupational status: unemployed and disabled Review of Systems Const Denies weight loss Card Denies chest pain, Denies pedal edema, Denies dyspnea, Reports dyspnea on exertion, Denies orthopnea and Denies paroxysmal nocturnal dyspnea Resp Denies cough, Denies hemoptysis, Denies excessive phlegm production, Denies dyspnea, Reports dyspnea on exertion and Denies wheezing Musc Reports myalgias Neuro Denies memory loss and Reports seizure-like activity Psych Reports abnormal sleep pattern, Reports anxiety and Denies memory loss Aller/Immun Denies wheezing Physical Exam Vital Signs: Last Vital Signs Pulse 102 H 12/07/22 13:03 BP 147/86 H 12/07/22 13:03 Pulse Ox 98 12/07/22 13:03 Oxygen Delivery Method Room Air 12/07/22 13:03 BMI result Body Mass Index 23.5 Const General: no acute distress and alert Nutritional Appearance: not obese Orientation/consciousness: Other orientation findings ( oriented) HEENT Head: Yes atraumatic Eyes General: appearance normal, both eyes and all related structures Sclerae: sclerae normal EOM: EOMs intact bilaterally Neck Neck: Yes supple Lymphatic: no lymphadenopathy noted Resp Effort & Inspection: normal respiratory effort and no use of accessory muscles Auscultation: clear to auscultation bilaterally Cardio Rate: regular rate Rhythm: regular rhythm Heart sounds: no gallops, no murmurs and no rubs Skin General skin exam: other ( warm) Extrem General: No clubbing, No cyanosis and No edema Assessment & Plan Assessment & Plan (1) QUILES (dyspnea on exertion): Code(s): R06.09 - Other forms of dyspnea Plan: Likely underlying COPD of unclear severity, mildly symptomatic. Will start on empiric Incruse and obtain full PFT. Orders: Orders PFT pulmonary function test Today R06.09 - Other forms of dyspnea Medications: New Incruse Ellipta 62.5 mcg/actuation (umeclidinium) 1 inh inhalation DAILY 30 days 1 ea 6RF NS Coding Level of Care Code New Pt Level 3 (67191) Diagnoses QUILES (dyspnea on exertion) R06.09
[2022-12-07 13:03] VITALS: BP 147/86; PULSE 102; O2SAT 98; BMI 23.5
== END 2022-12-07 13:31 | disposition home or self-care (01) ==
PROVIDERS: PCP Internal Medicine; Visit Provider Internal Medicine Pulmonary Disease
DX: R06.09 Other forms of dyspnea (principal)
CPT/HCPCS: 99203

== ENCOUNTER → 2022-12-07 13:01 | Outpatient (BNVA) | payer OTHER, SELFPAY | PROVIDERS: PCP Internal Medicine; Visit Provider Internal Medicine Pulmonary Disease ==

== ENCOUNTER 2023-02-16 01:04 | Emergency (ER) | payer OTHER, SELFPAY ==
--- NOTE | 2023-02-16 | ECG_ITS ---
Test Reason : chest pain Blood Pressure : / mmHG Vent. Rate : 086 BPM Atrial Rate : 086 BPM P-R Int : 154 ms QRS Dur : 064 ms QT Int : 386 ms P-R-T Axes : 065 042 061 degrees QTc Int : 461 ms Artifact in tracing Normal sinus rhythm Normal ECG When compared with ECG of 21-JUL-2021 12:42, No significant change was found Referred By: Generic ED Physician Electronically Signed By:YUE WATTS
--- NOTE | ~2023-02-16 | XR_ITS ---
EXAMINATION: XR CHEST CLINICAL INFORMATION: Cough COMPARISON: Previous chest x-ray most recent December [address] most recent August 2022 TECHNIQUE: Frontal view of the chest was obtained. FINDINGS: The cardiac and mediastinal contours are stable. There are slightly increased right suprahilar lung markings similar to prior exams. The lungs are otherwise clear. No pleural effusion or pneumothorax. Degenerative changes of the spine. XR/XR chest 1V IMPRESSION: No evidence for acute disease in the chest.
--- NOTE | ~2023-02-16 | CT_ITS ---
EXAMINATION: CT HEAD WITHOUT CONTRAST CLINICAL INFORMATION: Hypertension. Headache. COMPARISON: 07/21/2021 TECHNIQUE: Contiguous axial imaging was performed from the skull base to vertex without intravenous administration of contrast. This CT examination was performed using dose optimization techniques as appropriate, variously including the following: *Automated exposure control *Adjustment of mA and/or kV according to patient size (this includes techniques or standardized protocols for targeted exams where dose is matched to indication/reason for exam; i.e. extremities or head) *Use of iterative reconstruction technique DLP: 574 mGy-cm FINDINGS: The lateral, third and fourth ventricles are normally outlined. The cortical sulci and basal cisterns are normally out well. There is no acute territorial defect, hemorrhage or midline shift. The extra-axial spaces are unremarkable. Calvarium: Intact. Maxilla facial sinuses and mastoids: Clear as visualized. CT/CT head/brain wo IV con IMPRESSION: No acute intracranial pathology.
[2023-02-16 01:20] VITALS: BP 181/102; PULSE 81; RESP 20; TEMP 37.2; O2SAT 97; BMI 23.0
--- NOTE | 2023-02-16 01:30 | PC.NURSE ---
Notified charge nurse Michelle mcgarry is hypertensive.
[2023-02-16 01:35] LABS: Hematocrit 36.2 % (37.0-47.0); Hemoglobin 12.2 g/dl (12.0-16.0); Mean Corpuscular HGB Conc 33.7 g/dl (31.0-35.0); Mean Corpuscular Hemoglobin 29.1 pg (27.0-33.0); Mean Corpuscular Volume 86.4 fL (80.0-98.0); Mean Platelet Volume 11.2 fL (9.4-12.3); Platelet Count 187 X10*3/uL (160-400); Red Blood Count 4.19 X10*6/uL (4.20-5.50); Red Cell Distribution Width 12.1 % (11.0-16.0); White Blood Count 8.4 X10*3/uL (4.8-10.8)
[2023-02-16 01:48] LABS: Alanine Aminotransferase 8 U/L (0-31); Albumin Level 4.3 g/dL (3.5-5.0); Alkaline Phosphatase 86 U/L (39-117); Anion Gap 14 (12-20); Aspartate Amino Transferase 11 U/L (5-31); Bilirubin Total 0.5 mg/dL (0.0-1.0); Blood Urea Nitrogen 8 mg/dL (9-16); Calcium 9.7 mg/dL (8.4-10.2); Carbon Dioxide 24 mmol/L (22-29); Chloride 105 mmol/L (96-108); Creatinine Clr Calc Pharmacy 67.5; Estimated Glomerular Filt Rate > 60; Glucose Random 157 mg/dL (60-115); Potassium 3.7 mmol/L (3.3-5.1); Sodium 139 mmol/L (135-145); Total Protein 7.5 g/dL (6.5-8.0)
[2023-02-16 01:55] LABS: Troponin-I High Sensitivity < 2.7 ng/L (<3.5-17.0)
[2023-02-16 02:35] VITALS: BP 177/98; PULSE 87; RESP 12; TEMP 36.5; O2SAT 98
[2023-02-16 03:47] VITALS: BP 166/92; PULSE 82; RESP 14
[2023-02-16] MEDS: oxyCODONE HCl Immed Release 5 MG TABLET PO (04:41)
--- NOTE | 2023-02-16 04:43 | PC.NURSE ---
Pt reports headache, 12/18. MD notified. Pt medicated as ordered.
--- NOTE | 2023-02-16 06:54 | ED_ITS ---
HPI - General Adult General Chief complaint: General Medical Stated complaint: Seizure/High blood pressure/Palpitations Time Seen by Provider: 02/16/23 06:34 Source: patient Mode of arrival: ambulatory Limitations: no limitations History of Present Illness HPI narrative: A 57-year-old female who presents to the emergency department of her and reports of insomnia and seizure. Patient is noted to be sleeping at the time of my initial examination. Her is at bedside and describes seizure activity reporting that she was sitting on the couch when suddenly her arms hyper extended forward and she slid off of the couch in was not responsive to him and was noted to be drooling, once she open her eyes again she did not recognize who he was. He is unaware whether she has any seizure disorder. I was able to awaken patient with repetitive verbal stimuli, she reports a history of seizure disorder for which she is prescribed Keppra and she reports compliance with. She is unable to tell me when she last had a seizure. Evidently she and her have ?been apart for some time? which is why he was unaware about her seizure disorder. She is nodding off while talking to me, lethargic. Her reports that ?she gets like this when she takes her medicine?. Evidently she had taken her Xanax? Or Ambien? While in the room, but did not tell anyone this. She also received a dose of oxycodone at 0440 for a reported severe headache, and she states this has managed her headache in the past. She states that she has been having a hard time sleeping due to increased stressors at home, but does not provide specific details. Related Data Home Medications Medication Instructions Recorded Confirmed clonidine HCl 0.1 mg tablet 0.1 mg PO TID 12/17/19 11/30/22 hydroxyzine pamoate 50 mg capsule 50 mg PO Q8H PRN Anxiety 12/17/19 11/30/22 zolpidem 10 mg tablet 10 mg PO BEDTIME PRN Sleep 03/08/20 11/30/22 ascorbic acid (vitamin C) 500 mg 500 mg PO DAILY 02/10/21 11/30/22 tablet (Vitamin C) biotin 5,000 mcg sublingual tablet 5,000 mcg sublingual DAILY 02/10/21 11/30/22 cholecalciferol (vitamin D3) 25 25 mcg PO DAILY 02/10/21 11/30/22 mcg (1,000 unit) tablet (Vitamin D3) magnesium 500 mg tablet 500 mg PO DAILY 03/24/21 11/30/22 fluoxetine 40 mg PO DAILY 05/05/21 11/30/22 sumatriptan succinate 50 mg tablet 100 mg PO DAILY PRN migraine 05/05/21 11/30/22 headache sumatriptan succinate 100 mg tablet 100 mg PO BID PRN migraine 11/01/21 11/30/22 Previous Rx's Medication Instructions Recorded blood sugar diagnostic (FreeStyle #150 ea 07/21/20 Lite Strips) scopolamine base 1 mg over 3 days 1 patch transdermal Q3D #5 ea 08/05/20 transdermal patch levetiracetam 500 mg tablet 500 mg PO BID #180 tabs 12/20/21 ondansetron 4 mg disintegrating 4 mg PO Q8H PRN nausea and 10/30/22 tablet vomiting #30 tabs Incruse Ellipta 62.5 mcg/actuation 1 inh inhalation DAILY 30 days #1 12/07/22 powder for inhalation ea (umeclidinium) Allergies Allergy/AdvReac Type Severity Reaction Status Date / Time acetaminophen [Tylenol] AdvReac Unknown Abdominal Verified 12/07/22 13:07 Pain ibuprofen AdvReac Unknown Abdominal Verified 12/07/22 13:07 Pain Review of Systems 2 Review of Systems: Yes all other systems are reviewed and are negative PMFSH Past Medical History Attestation statement: The following information was validated with the patient. Source: old records reviewed Medical History Pulmonary nodule Diabetes type 2, uncontrolled Colitis Opioid use disorder Arthritis Fibromyalgia History of lung cancer Multinodular goiter Adrenal insufficiency due to cancer therapy Newly diagnosed diabetes Subclinical hyperthyroidism Pancreatitis (~02/2018) Radiation-induced esophagitis Hypothyroidism Depression Opioid abuse Asthma COPD (chronic obstructive pulmonary disease) Aftercare following left shoulder joint replacement surgery Non-small cell carcinoma of left lung, stage 4 Surgical History History of esophagogastroduodenoscopy (EGD) (~09/04/19) History of cholecystectomy (~12/02/08) History of endometrial ablation (~07/25/06) History of esophageal dilatation (~02/24/18) Hx of shoulder surgery (~2014) Hx of blepharoplasty (~2019) History of Family History Family History Father Pancreatic cancer Mother Diabetes Skin cancer Rheumatoid arthritis Brother Diabetes Sister Diabetes Other History of thyroid disorder Social History Social History Household Members: Family [facility] Do you presently have visiting nurse or other home services: Yes Alcohol intake: current Alcohol intake frequency: a few times a week Alcohol type: wine Comment: refuses bed alarm Patient Tobacco Use Status: Current someday Tobacco user Cigarettes Per Day: 4 Years Smoked: 30 Smoked in Last 30 Days: Yes Second Hand Smoke Exposure: No Use of substances other than those prescribed or required for medical reasons: No Advance Directives: Yes Advance Directives on File: Yes Advance Directives Date on File: 05/12/20 Patient : No service: No Current occupational status: unemployed and disabled Physical Exam ED Vital Signs: Vital Signs - 24 hr 02/16/23 01:20 02/16/23 02:35 02/16/23 03:47 Temperature 98.9 F 97.7 F Pulse Rate 81 87 82 Respiratory Rate 20 12 14 Blood Pressure 181/102 H 177/98 H 166/92 H Pulse Oximetry 97 98 Oxygen Delivery Method Room Air Room Air 02/16/23 07:44 02/16/23 09:23 Temperature 98.6 F Pulse Rate 84 91 Respiratory Rate 15 16 Blood Pressure 106/70 122/94 H Pulse Oximetry 97 96 Oxygen Delivery Method Room Air Room Air BMI result Body Mass Index 23.0 Appearance: lethargy, responsive to verbal stimuli, oriented to person, place, and time Eyes: Pupils equal, round and reactive to light, 2mm bilaterally ENT: Pharynx normal.?? Neck: Normal inspection.? Neck supple.?? CVS: Heart sounds normal. Normal heart rate and rhythm.? Pulses normal.?? Respiratory: No respiratory distress.? Lung sounds clear to auscultation bilaterally?? Abdomen: Soft and non-tender. Normoactive bowel sounds. Skin: Skin warm and dry.? Normal skin color.? Extremities: No lower extremity edema.? No calf ttp? Neuro: Moves all extremities spontaneously. Sensation intact bilaterally. CN II- XII intact. No focal neuro deficits. Ambulates with normal steady gait. Course Reevaluation(s) Reevaluation #1: Chest x-ray and urinalysis are without evidence of infection or acute cardiopulmonary disease. Time: 09:35 Medications Administered Discontinued Medications Generic Name Dose Route Start Last Admin Trade Name Freq PRN Reason Stop Dose Admin Oxycodone HCl 5 mg 02/16/23 04:36 02/16/23 04:41 Oxycodone Hcl Immed Release 5 Mg Tablet PO 02/16/23 04:37 5 mg ONCE ONE Administration Medical Decision Making Medical Decision Making [facility] Narrative: 06:40 I assumed care of patient at this time. Patient is a 57-year-old female with past medical history of anemia, rheumatoid arthritis, type 2 diabetes, orthostatic hypertension, asthma, radiation-induced esophagitis, hypothyroidism, fibromyalgia, adrenal insufficiency, lung adenocarcinoma s/p radiation therapy in remission, opioid use disorder presenting to the emergency department with reports of insomnia and a seizure as per HPI. She is lethargic at the time of my evaluation, this is likely secondary to a combination of oxycodone she received here from pain and her personal medication that she was also taking without making staff aware. I reviewed [facility], she is prescribed Ambien in addition to Xanax, it is unclear whether she took both of these medications verses 1 of them in combination with the oxycodone. She is arousable to verbal stimuli, but easily falls back to sleep. She has no focal neurological deficits upon examination. A head CT was obtained prior to my assumption of care which reveals no acute intracranial abnormality. I have reviewed serum labs which reveals an overall unremarkable CBC and CMP. High sensitive troponin is nondetectable, EKG reveals a normal sinus rhythm with ventricular rate of 86, normal PA interval, QTC 461, no ST elevation, no ST depression, not consistent with ACS. She does have mild cough but denies any shortness of breath, no hypoxia or tachypnea. Plan to obtain CXR to exclude pneumonia in addition to urinalysis to rule out infection as cause for breakthrough seizure. Differential Diagnosis Differential Diagnoses: The differential diagnosis associated with the presentation includes (Seizure, ICH, insomnia, anxiety, depression) Admission/Observation Consideration of admission/observation: Escalation of care including admission/observation considered (See narrative above and course narrative for further detail) Lab Data [facility] Lab Attestation statement: I reviewed the patient's lab results. (See narrative above) 02/16/23 01:28 02/16/23 01:28 Labs: Lab Results 02/16/23 02/16/23 Range/Units 01:28 08:08 WBC 8.4 (4.8-10.8) X10*3/uL RBC 4.19 L (4.20-5.50) X10*6/uL Hgb 12.2 (12.0-16.0) g/dl Hct 36.2 L (37.0-47.0) % MCV 86.4 (80.0-98.0) fL MCH 29.1 (27.0-33.0) pg MCHC 33.7 (31.0-35.0) g/dl RDW 12.1 (11.0-16.0) % Plt Count 187 (160-400) X10*3/uL MPV 11.2 (9.4-12.3) fL Absolute Nucleated RBC 0.000 (0.0-0.012) X10*3/uL Nucleated RBC % (auto) 0.0 (0.0-0.2) /100WBC Sodium 139 (135-145) mmol/L Potassium 3.7 (3.3-5.1) mmol/L Chloride 105 (96-108) mmol/L Carbon Dioxide 24 (22-29) mmol/L Anion Gap 14 (12-20) BUN 8 L (9-16) mg/dL Creatinine 0.76 (0.5-1.4) mg/dL Estim Creat Clear Calc 67.5 Estimated GFR > 60 Random Glucose 157 H (60-115) mg/dL Calcium 9.7 (8.4-10.2) mg/dL Total Bilirubin 0.5 (0.0-1.0) mg/dL AST 11 (5-31) U/L ALT 8 (0-31) U/L Alkaline Phosphatase 86 (39-117) U/L Troponin I High Sens < 2.7 (<3.5-17.0) ng/L Total Protein 7.5 (6.5-8.0) g/dL Albumin 4.3 (3.5-5.0) g/dL Urine Color Yellow Urine Appearance Clear Urine pH 7.0 (5.0-9.0) Ur Specific [place] 1.015 (1.005-1.025) Urine Protein Negative (Neg-Trace) mg/dL Urine Glucose (UA) Negative (Negative) mg/dL Urine Ketones Negative (Negative) mg/dL Urine Blood Negative (Negative) Urine Nitrite Negative (Negative) Ur Leukocyte Esterase Negative (Negative) Independent Interpretation I performed an independent interpretation of an: EKG (As per narrative above) and Plain X-Ray (I personally interpreted chest x-ray and agree with radiologist impression.) Radiology Impression Discussion of test interpretation with radiology: I have reviewed the radiologist's reading. Radiologist Impression: RDER #: [id number] XR/XR chest 1V IMPRESSION: No evidence for acute disease in the chest. Independent Historian Clinical information obtained from an independent historian. History obtained from or confirmed by: Spouse (As noted above and in HPI) External Record Review External record reviewed: Outpatient record Discharge Plan Discharge Clinical Impression: Insomnia, Seizure disorder Patient Disposition: Home, Self-Care Instructions: Insomnia (ED) Additional Instructions: Continue taking all your medications as prescribed. Follow-up with your primary care provider. Return back to emergency department with any new or worsening symptoms or concerns. Prescriptions: No Action (DME) FreeStyle Lite Strips Strip See Rx Instructions .MEDSUPPLY Qty: 150 6RF Rx Instructions: 4 times a day ondansetron 4 mg tablet,disintegrating 4 mg PO Q8H PRN (Reason: nausea and vomiting) Qty: 30 0RF clonidine HCl 0.1 mg tablet 0.1 mg PO TID hydroxyzine pamoate 50 mg capsule 50 mg PO Q8H PRN (Reason: Anxiety) scopolamine base 1 mg over 3 days Patch 3 Day 1 patch TRANSDERMAL Q3D Qty: 5 2RF magnesium 500 mg Tablet 500 mg PO DAILY fluoxetine 40 mg PO DAILY sumatriptan succinate 50 mg tablet 100 mg PO DAILY PRN (Reason: migraine headache) Rx Instructions: do not exceed 4 doses per 24 hrs levetiracetam 500 mg tablet 500 mg PO BID Qty: 180 1RF ascorbic acid (vitamin C) [Vitamin C] 500 mg Tablet 500 mg PO DAILY cholecalciferol (vitamin D3) [Vitamin D3] 25 mcg (1,000 unit) Tablet 25 mcg PO DAILY biotin 5,000 mcg Tablet, Sublingual 5,000 mcg SUBLINGUAL DAILY zolpidem 10 mg tablet 10 mg PO BEDTIME PRN (Reason: Sleep) sumatriptan succinate 100 mg tablet 100 mg PO BID PRN (Reason: migraine) Incruse Ellipta 62.5 mcg/actuation blister with device 1 inh inhalation DAILY 30 Days Qty: 1 6RF Interventions: ED Discharge Assessment Last Done: 02/16/23 10:31 Discharge Date/Time: 02/16/23 10:32
[2023-02-16 07:44] VITALS: BP 106/70; PULSE 84; RESP 15; TEMP 37; O2SAT 97
[2023-02-16 08:16] LABS: Appearance Urine Clear; Color Urine Yellow; Glucose Urine UA Negative (Negative); Leukocyte Esterase Urine Negative (Negative); Nitrite Urine Negative (Negative); Specific Gravity - Urine 1.015 (1.005-1.025); Urine Blood Negative (Negative); Urine Ketones Negative (Negative); Urine Protein Negative (Neg-Trace)
[2023-02-16 09:23] VITALS: BP 122/94; PULSE 91; RESP 16; O2SAT 96
== END 2023-02-16 10:32 | disposition home or self-care (01) ==
PROVIDERS: Nurse Practitioner Family; Emergency Provider Emergency Medicine Emergency Medical Services
DX: G40.909 Epilepsy, unspecified, not intractable, without status epilepticus (principal); G47.00 Insomnia, unspecified; R07.9 Chest pain, unspecified; R51.9 Headache, unspecified; I10 Essential (primary) hypertension; D64.9 Anemia, unspecified; M06.9 Rheumatoid arthritis, unspecified; E11.9 Type 2 diabetes mellitus without complications; E03.9 Hypothyroidism, unspecified; J44.9 Chronic obstructive pulmonary disease, unspecified; Z79.899 Other long term (current) drug therapy
CPT/HCPCS: 36415; 70450; 71045; 80053; 81003; 84484; 85027; 93005; 99285

== ENCOUNTER → 2023-02-16 01:14 | Outpatient (BNV) | payer OTHER, SELFPAY | PROVIDERS: Emergency Provider Emergency Medicine Emergency Medical Services; Visit Provider Internal Medicine | DX: R07.9 Chest pain, unspecified (principal) | CPT/HCPCS: 93010 ==

== ENCOUNTER 2023-05-12 10:04 | Emergency (ER) | payer OTHER, SELFPAY ==
--- NOTE | ~2023-05-12 | CT_ITS ---
EXAMINATION: CT HEAD WITHOUT CONTRAST CLINICAL INFORMATION: Head strike COMPARISON: 02/16/2023 TECHNIQUE: Contiguous axial imaging was performed from the skull base to vertex without intravenous administration of contrast. This CT examination was performed using dose optimization techniques as appropriate, variously including the following: *Automated exposure control *Adjustment of mA and/or kV according to patient size (this includes techniques or standardized protocols for targeted exams where dose is matched to indication/reason for exam; i.e. extremities or head) *Use of iterative reconstruction technique DLP: 556 mGy-cm FINDINGS: The ventricles and sulci are normal in size and configuration. No acute hemorrhage, mass effect or shift is evident. Byers-white differentiation is maintained. In the posterior fossa, the brainstem, cerebellum and fourth ventricle image normally. There is a blood fluid level in the left maxillary sinus, and a fracture of the lateral wall the left maxillary sinus is evident with air in the extra maxillary soft tissues on the left. CT/CT head/brain wo IV con IMPRESSION: 1. No acute intracranial hemorrhage, mass effect or shift. 2. Fracture of the lateral wall of the left maxillary sinus with air in the left extra maxillary soft tissues lateral to the lateral wall of the left maxillary sinus, deep to the zygomatic arch.
--- NOTE | ~2023-05-12 | CT_ITS ---
EXAMINATION: CT CERVICAL SPINE WITHOUT CONTRAST CLINICAL INFORMATION: Neck pain, trauma. COMPARISON: Thoracic CT of 08/29/2022 and 05/09/2021 TECHNIQUE: Multiple helical unenhanced images were acquired through the cervical spine. Multiplanar computer reformatted images were acquired from the dataset in the sagittal and coronal plane. This CT examination was performed using dose optimization techniques as appropriate, variously including the following: *Automated exposure control *Adjustment of mA and/or kV according to patient size (this includes techniques or standardized protocols for targeted exams where dose is matched to indication/reason for exam; i.e. extremities or head) *Use of iterative reconstruction technique DLP: 260.28 mGy-cm FINDINGS: CT examination of the cervical spine shows no prevertebral soft tissue swelling. Vertebral body height and alignment are maintained. No acute fracture or subluxation is evident. The odontoid process, cervicothoracic and cervical medullary junctions are normal. There are no bone lesions. Incompletely imaged, are emphysematous changes in both apices as well as masslike consolidation in the right lung apex, perhaps more prominent than on 08/29/2022 and 05/09/2021. CT/CT cervical spine wo IV con IMPRESSION: 1. No acute cervical spine fracture or subluxation. 2. Potentially increasing right apical consolidation, incompletely imaged in a background of emphysema. Suggest elective follow-up thoracic CT, as developing bronchogenic mass/neoplasm is not excluded. Fleischner guidelines were followed.
--- NOTE | ~2023-05-12 | CT_ITS ---
EXAMINATION: CT ABDOMEN AND PELVIS WITH CONTRAST CLINICAL INFORMATION: Fall. Trauma. COMPARISON: Previous CT of the abdomen and pelvis February 2021 TECHNIQUE: Multidetector volumetric images were obtained from the superior aspect of the liver through the pubic symphysis following administration 85 mL of Omnipaque 350 intravenous contrast. Sagittal and coronal reformatted images were obtained on the technologist's workstation. Oral contrast: Yes This CT examination was performed using dose optimization techniques as appropriate, variously including the following: *Automated exposure control *Adjustment of mA and/or kV according to patient size (this includes techniques or standardized protocols for targeted exams where dose is matched to indication/reason for exam; i.e. extremities or head) *Use of iterative reconstruction technique DLP: 369 mGy-cm FINDINGS: LUNG BASES: The visualized lung bases are unremarkable. LIVER, GALLBLADDER, AND BILIARY TREE: The liver is normal in size, and shape. Mild fatty infiltration gallbladder has been removed. No intrahepatic biliary duct dilatation. Mild common bile duct dilatation down to the head of the pancreas. This is similar to prior exam and may be normal postcholecystectomy. PANCREAS: Atrophic changes of the pancreas similar to previous comparison SPLEEN: Unremarkable. ADRENAL GLANDS: Unremarkable. KIDNEYS AND URETERS: The kidneys are normal in size, shape, and attenuation. No hydronephrosis, hydroureter, or calculi seen. No perinephric stranding. BLADDER: Unremarkable. GASTROINTESTINAL TRACT: The small and large bowel are unremarkable. The appendix is unremarkable. Question small esophageal hernia. ABDOMINAL WALL: No significant hernia is appreciated. LYMPH NODES: Normal. VASCULAR: Unremarkable. PELVIC VISCERA: Prominent pelvic vessels questionable for pelvic congestion. OSSEOUS STRUCTURES: Unremarkable. No fracture or dislocation. CT/CT abdomen pelvis w IV con IMPRESSION: No acute posttraumatic findings. Fleischner guidelines were followed.
--- NOTE | ~2023-05-12 | CT_ITS ---
EXAMINATION: CT FACIAL BONES WITHOUT CONTRAST CLINICAL INFORMATION: Fall, head strike COMPARISON: None available. TECHNIQUE: Multidetector CT acquisitions of the maxillofacial regions without associated of intravenous contrast. This CT examination was performed using dose optimization techniques as appropriate, variously including the following: *Automated exposure control *Adjustment of mA and/or kV according to patient size (this includes techniques or standardized protocols for targeted exams where dose is matched to indication/reason for exam; i.e. extremities or head) *Use of iterative reconstruction technique DLP: 275 mGy-cm FINDINGS: Motion artifact is present. Mildly displaced fracture of the anterior wall of the left maxillary sinus. Comminuted and displaced fracture of the posterolateral wall of the left maxillary sinus. There are remaining paranasal sinus johnston are intact. The mandible, maxilla, pterygoid plates, nasal bones, zygomatic arches, and bony orbits are intact. No acute osseous abnormality within the maxillofacial region. Left maxillary hemosinus, opacifying the left ostiomeatal unit. Small contusion involving the temporal and left premaxillary subcutaneous tissues. There is also a small amount of subcutaneous emphysema predominantly involving the left senior clerk space. CT/CT facial bones wo IV con IMPRESSION: -Multifocal, comminuted, nondisplaced fractures of the left maxillary sinus anterior and posterolateral johnston with associated hemosinus. -Left facial soft tissue contusion. Small volume subcutaneous emphysema predominantly involving the left senior clerk space.
--- NOTE | ~2023-05-12 | CT_ITS ---
EXAMINATION: CT CHEST WITH CONTRAST CLINICAL INFORMATION: Fall. Trauma. COMPARISON: Previous chest x-ray February [address] August 2022 TECHNIQUE: Multidetector volumetric CT imaging of the chest was obtained after the administration of 85 mL of Omnipaque 350 intravenous contrast without immediate adverse reactions. Axial MIP volume rendering provided. Sagittal and coronal reformatted images were obtained. This CT examination was performed using dose optimization techniques as appropriate, variously including the following: *Automated exposure control *Adjustment of mA and/or kV according to patient size (this includes techniques or standardized protocols for targeted exams where dose is matched to indication/reason for exam; i.e. extremities or head) *Use of iterative reconstruction technique DLP: 186 mGy-cm FINDINGS: LUNGS: Emphysema. Central increased soft tissue surrounding the right mainstem bronchus and adjacent right upper lobe and superior segment right lower lobe consolidation and cicatrization bronchiectasis. This is similar to previous exams and probably represents post radiation change. Lungs are otherwise clear. MEDIASTINUM: Question mild wall thickening of the esophagus. Small stable right mediastinal and hilar lymph nodes. Normal heart size. No pericardial effusion. Normal caliber thoracic aorta. PLEURA: There is no pleural effusion. No pneumothorax No pleural mass or thickening. AXILLA: No lymphadenopathy. No chest wall mass OSSEOUS STRUCTURES: No fracture CT/CT chest w IV con IMPRESSION: No acute posttraumatic changes. Emphysema. Stable probable post radiation changes in the central right upper lobe and superior segment right lower lobe from prior exams. Question mild wall thickening of the esophagus. Fleischner guidelines were followed.
[2023-05-12 10:19] VITALS: BP 158/87; PULSE 71; RESP 16; TEMP 36.9; O2SAT 100; BMI 21.3
[2023-05-12 10:33] LABS: MANUAL DIFF FLAG NO
[2023-05-12 10:38] LABS: Basophils Absolute Auto 0.1 X10*3/uL (0.0-0.2); Basophils Percent Auto 0.6 % (0-2); Eosinophils Absolute Auto 0.2 X10*3/uL (0.0-0.4); Eosinophils Percent Auto 2.7 % (0-4); Hematocrit 35.5 % (37.0-47.0); Hemoglobin 12.4 g/dl (12.0-16.0); Imm Gran Abs Auto 0.02 X10*3/uL (0.00-0.03); Imm Gran Pct Auto 0.3 % (0.0-0.4); Lymphocytes Absolute Auto 1.6 X10*3/uL (1.2-4.9); Lymphocytes Percent Auto 20.8 % (20-40); Mean Corpuscular HGB Conc 34.9 g/dl (31.0-35.0); Mean Corpuscular Hemoglobin 30.1 pg (27.0-33.0); Mean Corpuscular Volume 86.2 fL (80.0-98.0); Mean Platelet Volume 11.3 fL (9.4-12.3); Monocytes Absolute Auto 0.6 X10*3/uL (0.1-1.2); Monocytes Percent Auto 7.4 % (2-11); Neutrophils Absolute Auto 5.3 x10*3/uL (2.0-8.3); Neutrophils Percent Auto 68.2 % (45-73); Platelet Count 179 X10*3/uL (160-400); Red Blood Count 4.12 X10*6/uL (4.20-5.50); Red Cell Distribution Width 12.6 % (11.0-16.0); White Blood Count 7.8 X10*3/uL (4.8-10.8)
[2023-05-12 10:52] LABS: Alanine Aminotransferase 33 U/L (0-31); Albumin Level 4.1 g/dL (3.5-5.0); Alkaline Phosphatase 116 U/L (39-117); Anion Gap 15 (12-20); Aspartate Amino Transferase 29 U/L (5-31); Bilirubin Total 0.8 mg/dL (0.0-1.0); Blood Urea Nitrogen 6 mg/dL (9-16); Calcium 9.7 mg/dL (8.4-10.2); Carbon Dioxide 25 mmol/L (22-29); Chloride 105 mmol/L (96-108); Creatinine Clr Calc Pharmacy 74.4; Estimated Glomerular Filt Rate > 60; Glucose Random 138 mg/dL (60-115); Potassium 3.5 mmol/L (3.3-5.1); Sodium 141 mmol/L (135-145); Total Protein 7.3 g/dL (6.5-8.0)
--- NOTE | 2023-05-12 11:35 | ED_ITS ---
HPI - General Adult General Chief complaint: Seizure Stated complaint: Seizure ? Time Seen by Provider: 05/12/23 11:34 Source: patient Mode of arrival: ambulatory Limitations: no limitations History of Present Illness HPI narrative: 55-year-old female past medical history significant for diabetes, orthostatic hypotension, asthma, radiation induced esophagitis, colitis on mesalamine, hyperthyroidism, opiate use disorder followed by pain management, fibromyalgia, migranes adrenal insufficiency on chronic prednisione,lung adenocarcinoma status post radiation presents to the emergency department with complaints of seizure earlier this morning with fall, head strike, having left-sided facial pain and swelling. Also telling me shift felt nauseous after the fact. Not on blood thinners. She is supposed to take Keppra however has not taken it for about a week. Reports she ran out and was just able to fill it. Related Data Home Medications Medication Instructions Recorded Confirmed clonidine HCl 0.1 mg tablet 0.1 mg PO TID 12/17/19 11/30/22 hydroxyzine pamoate 50 mg capsule 50 mg PO Q8H PRN Anxiety 12/17/19 11/30/22 zolpidem 10 mg tablet 10 mg PO BEDTIME PRN Sleep 03/08/20 11/30/22 ascorbic acid (vitamin C) 500 mg 500 mg PO DAILY 02/10/21 11/30/22 tablet (Vitamin C) biotin 5,000 mcg sublingual tablet 5,000 mcg sublingual DAILY 02/10/21 11/30/22 cholecalciferol (vitamin D3) 25 25 mcg PO DAILY 02/10/21 11/30/22 mcg (1,000 unit) tablet (Vitamin D3) magnesium 500 mg tablet 500 mg PO DAILY 03/24/21 11/30/22 fluoxetine 40 mg PO DAILY 05/05/21 11/30/22 sumatriptan succinate 50 mg tablet 100 mg PO DAILY PRN migraine 05/05/21 11/30/22 headache sumatriptan succinate 100 mg tablet 100 mg PO BID PRN migraine 11/01/21 11/30/22 Previous Rx's Medication Instructions Recorded blood sugar diagnostic (FreeStyle #150 ea 07/21/20 Lite Strips) scopolamine base 1 mg over 3 days 1 patch transdermal Q3D #5 ea 08/05/20 transdermal patch levetiracetam 500 mg tablet 500 mg PO BID #180 tabs 12/20/21 ondansetron 4 mg disintegrating 4 mg PO Q8H PRN nausea and 10/30/22 tablet vomiting #30 tabs Incruse Ellipta 62.5 mcg/actuation 1 inh inhalation DAILY 30 days #1 12/07/22 powder for inhalation ea (umeclidinium) Allergies Allergy/AdvReac Type Severity Reaction Status Date / Time acetaminophen [Tylenol] AdvReac Unknown Abdominal Verified 12/07/22 13:07 Pain ibuprofen AdvReac Unknown Abdominal Verified 12/07/22 13:07 Pain Review of Systems 2 Review of Systems: Yes all other systems are reviewed and are negative FORMERLY [facility], [facility] Past Medical History Attestation statement: The following information was validated with the patient. Source: old records reviewed and nursing notes reviewed Medical History Pulmonary nodule Diabetes type 2, uncontrolled Colitis Opioid use disorder Arthritis Fibromyalgia History of lung cancer Multinodular goiter Adrenal insufficiency due to cancer therapy Newly diagnosed diabetes Subclinical hyperthyroidism Pancreatitis (~02/2018) Radiation-induced esophagitis Hypothyroidism Depression Opioid abuse Asthma COPD (chronic obstructive pulmonary disease) Aftercare following left shoulder joint replacement surgery Non-small cell carcinoma of left lung, stage 4 Surgical History History of esophagogastroduodenoscopy (EGD) (~09/04/19) History of cholecystectomy (~12/02/08) History of endometrial ablation (~07/25/06) History of esophageal dilatation (~02/24/18) Hx of shoulder surgery (~2014) Hx of blepharoplasty (~2018) History of Family History Family History Father Pancreatic cancer Mother Diabetes Skin cancer Rheumatoid arthritis Brother Diabetes Sister Diabetes Other History of thyroid disorder Social History Social History Household Members: Family Housing: Condominium Do you presently have visiting nurse or other home services: Yes Alcohol intake: current Alcohol intake frequency: a few times a week Alcohol type: wine Comment: refuses bed alarm Patient Tobacco Use Status: Current someday Tobacco user Cigarettes Per Day: 4 Years Smoked: 30 Second Hand Smoke Exposure: No Use of substances other than those prescribed or required for medical reasons: No Advance Directives: Yes Advance Directives on File: Yes Advance Directives Date on File: 05/12/20 Patient : No service: No Current occupational status: unemployed and disabled Physical Exam ED Vital Signs: Vital Signs - 24 hr 05/12/23 10:19 05/12/23 14:14 Temperature 98.4 F 98.7 F Pulse Rate 71 96 Respiratory Rate 16 22 H Blood Pressure 158/87 H 147/77 H Pulse Oximetry 100 97 Oxygen Delivery Method Room Air Room Air BMI result Body Mass Index 21.3 vss Appearance: Alert.? Oriented X3.? No acute distress.? Head: Normocephalic, atraumatic, no step-offs or deformities Eyes: Pupils equal, round and reactive to light.? Extraocular movements intact and pain-free. ENT: Pharynx normal.? Left-sided orbital ecchymosis with swelling overlying the left cheek/left eye. Neck: Normal inspection.? Neck supple.? CVS: Normal heart rate and rhythm.? Pulses normal.? Respiratory: No respiratory distress.? Breath sounds normal.? Abdomen: Soft and nontender.? Skin: Skin warm and dry.? Normal skin color.? Normal skin turgor.? Extremities: No lower extremity edema.? No calf ttp. 5/5 strength to bilateral upper and lower extremities Neuro: Oriented X 3.? No motor deficit.? No sensory deficit. CN 2-12 intact\. Normal finger to nose, heel to almazan, steady tandem gait normal coodination Course Reevaluation(s) Reevaluation #1: While I was in the room re-evaluating patient she had an episode of vomiting she said she had felt nauseous since after the seizure. Will give Zofran. No associated abdominal pain Time: 11:54 Reevaluation #2: Complaining of headache --> morphine ordered as she has tylenol and ibuprofen allergy . CT head with no acute intracranial hemorrhage mass effect or shift. A fracture of the lateral wall of the left maxillary sinus with air in the left extra maxillary soft tissue ( will discuss this with [facility] trauma for input) ice on it now to help w/ swelling morphine ordered for pain. No cervical spine fracture subluxations. Potentially increasing right apical consolidation incompletely imaged in background of emphysema. Recommended CT thoracic region as develop bronchogenic mass/neoplasm can not be excluded ( will inform patient of this ) Time: 13:32 Reevaluation #3: CT chest & abdomen and pelvis ordered. Call out to [facility] oral maxillofacial will call me back for consult. Time: 13:36 Additional Reevaluation(s): Discuss this case with Oral maxillofacial at [facility] who states that they can not formally consult but they can tell me that if this was brought over to [facility] they would consult formally. If its an isolated maxillary fx likely not much to do surgically. Patient can likely follow up with Oral or plastic surgeon. However patients pain persists increased inflammation and now having blurred vision. Discussed w/ my attending will transfer to [facility] as trauma transfer as we do not have trauma or OMF. [id number]- Trauma consult Dr. Mccain Medications Administered Discontinued Medications Generic Name Dose Route Start Last Admin Trade Name Freq PRN Reason Stop Dose Admin Levetiracetam 1,000 mg in 100 mls @ 400 mls/hr 05/12/23 11:53 05/12/23 13:17 Keppra IV 05/12/23 12:07 Infused ONCE ONE Infusion Lorazepam 1 mg 05/12/23 11:53 05/12/23 12:23 Lorazepam 2 Mg/Ml Vial IVPUSH 05/12/23 11:54 1 mg STAT STA Administration Morphine Sulfate 4 mg 05/12/23 13:24 05/12/23 13:49 Morphine Sulfate 4 Mg/Ml Cartridge IVPUSH 05/12/23 13:25 4 mg ONCE ONE Administration Protocol Ondansetron HCl 4 mg 05/12/23 11:54 05/12/23 12:23 Ondansetron Hcl 4 Mg/2 Ml Vial IVPUSH 05/12/23 11:55 4 mg ONCE ONE Administration Medical Decision Making Medical Decision Making MDM Narrative: 57-year-old female presents status post seizure with facial trauma. Patient not on blood thinners. Physical exam significant for swelling and bruising to the left cheek/ eye region. Extraocular movements intact and pain-free. Neuro nonfocal. This is likely seizure resulting in fall due to non med compliance unlikely intracranial hemorrhage, stroke, posterior stroke. Will rule out fractures to facial bones. No signs of optic nerve entrapment. Unlikely cervical spine fracture, dislocation or traumatic subluxation. Preceding symptoms such as chest pain or shortness of breath unlikely fall secondary to PE, ACS. Plan imaging, basic labs. We will load patient with Keppra and give Ativan for increasing seizure threshold Differential Diagnosis Differential Diagnoses: The differential diagnosis associated with the presentation includes This is likely seizure resulting in fall due to non med compliant unlikely intracranial hemorrhage, stroke, posterior stroke. Will rule out fractures to facial bones. No signs of optic nerve entrapment. Unlikely cervical spine fracture, dislocation or traumatic subluxation. Preceding symptoms such as chest pain or shortness of breath unlikely fall secondary to PE, ACS. Admission/Observation Consideration of admission/observation: Escalation of care including admission/observation considered Possible Consult Healthcare Provider Management of the patient was discussed with: Bobbin [employer] Lab Data MDM Lab Attestation statement: I reviewed the patient's lab results. 05/12/23 10:28 05/12/23 10:28 Labs: Lab Results 05/12/23 Range/Units 10:28 WBC 7.8 (4.8-10.8) X10*3/uL RBC 4.12 L (4.20-5.50) X10*6/uL Hgb 12.4 (12.0-16.0) g/dl Hct 35.5 L (37.0-47.0) % MCV 86.2 (80.0-98.0) fL MCH 30.1 (27.0-33.0) pg MCHC 34.9 (31.0-35.0) g/dl RDW 12.6 (11.0-16.0) % Plt Count 179 (160-400) X10*3/uL MPV 11.3 (9.4-12.3) fL Immature Gran % (Auto) 0.3 (0.0-0.4) % Neut % (Auto) 68.2 (45-73) % Lymph % (Auto) 20.8 (20-40) % [place] % (Auto) 7.4 (2-11) % Eos % (Auto) 2.7 (0-4) % Baso % (Auto) 0.6 (0-2) % Lymph # (Auto) 1.6 (1.2-4.9) X10*3/uL [place] # (Auto) 0.6 (0.1-1.2) X10*3/uL Eos # (Auto) 0.2 (0.0-0.4) X10*3/uL Baso # (Auto) 0.1 (0.0-0.2) X10*3/uL Abs Immat Gran (auto) 0.02 (0.00-0.03) X10*3/uL Absolute Neuts (auto) 5.3 (2.0-8.3) x10*3/uL Absolute Nucleated RBC 0.000 (0.0-0.012) X10*3/uL Nucleated RBC % (auto) 0.0 (0.0-0.2) /100WBC Sodium 141 (135-145) mmol/L Potassium 3.5 (3.3-5.1) mmol/L Chloride 105 (96-108) mmol/L Carbon Dioxide 25 (22-29) mmol/L Anion Gap 15 (12-20) BUN 6 L (9-16) mg/dL Creatinine 0.69 (0.5-1.4) mg/dL Estim Creat Clear Calc 74.4 Estimated GFR > 60 Random Glucose 138 H (60-115) mg/dL Calcium 9.7 (8.4-10.2) mg/dL Total Bilirubin 0.8 (0.0-1.0) mg/dL AST 29 (5-31) U/L ALT 33 H (0-31) U/L Alkaline Phosphatase 116 (39-117) U/L Total Protein 7.3 (6.5-8.0) g/dL Albumin 4.1 (3.5-5.0) g/dL Independent Interpretation I performed an independent interpretation of an: Plain X-Ray and CT Scan (CT/CT facial bones wo IV con IMPRESSION: -Multifocal, comminuted, nondisplaced fractures of the left maxillary sinus anterior and posterolateral johnston with associated hemosinus. -Left facial soft tissue contusion. Small volume subcutaneous emphysema predominantly involving the left candy spreader helper spac) Interpretation: CT/CT head/brain wo IV con IMPRESSION: 1. No acute intracranial hemorrhage, mass effect or shift. 2. Fracture of the lateral wall of the left maxillary sinus with air in the left extra maxillary soft tissues lateral to the lateral wall of the left maxillary sinus, deep to the zygomatic arch. Radiology Impression Discussion of test interpretation with radiology: I have reviewed the radiologist's reading. External Record Review External record reviewed: Inpatient record, Office record, Outpatient record, Prior outpatient labs, Prior outpatient radiology, Primary care record and Outside ED record Critical Care Time Critical Care Time Critical Care Time: Yes Total Critical Care Time: 35 Attestation: I attest to this time spent taking care of the patient, obtaining history, physical, reviewing labs, imaging, speaking to my attending, speaking to specialist. Discharge Plan Discharge Clinical Impression: Epileptic seizure, Nausea & vomiting, Fracture of maxillary sinus Patient Disposition: [facility] Transfer Details: Dr. Mccain ED --> ED Instructions: Epilepsy (ED) Additional Instructions: Take your medications as prescribed. If you were prescribed antibiotics today, it is important that you take your medication to their entirety, do not skip any doses, do not finish them early. Follow-up with your primary care provider this week. Return to the emergency department with new or worsening symptoms. Such as fevers, chills, chest pain, shortness of breath, nausea, vomiting, dizziness, headache, vision changes, lethargy In case of emergency call 911 Prescriptions: No Action (DME) FreeStyle Lite Strips Strip See Rx Instructions .MEDSUPPLY Qty: 150 6RF Rx Instructions: 4 times a day ondansetron 4 mg tablet,disintegrating 4 mg PO Q8H PRN (Reason: nausea and vomiting) Qty: 30 0RF clonidine HCl 0.1 mg tablet 0.1 mg PO TID hydroxyzine pamoate 50 mg capsule 50 mg PO Q8H PRN (Reason: Anxiety) scopolamine base 1 mg over 3 days Patch 3 Day 1 patch TRANSDERMAL Q3D Qty: 5 2RF magnesium 500 mg Tablet 500 mg PO DAILY fluoxetine 40 mg PO DAILY sumatriptan succinate 50 mg tablet 100 mg PO DAILY PRN (Reason: migraine headache) Rx Instructions: do not exceed 4 doses per 24 hrs levetiracetam 500 mg tablet 500 mg PO BID Qty: 180 1RF ascorbic acid (vitamin C) [Vitamin C] 500 mg Tablet 500 mg PO DAILY cholecalciferol (vitamin D3) [Vitamin D3] 25 mcg (1,000 unit) Tablet 25 mcg PO DAILY biotin 5,000 mcg Tablet, Sublingual 5,000 mcg SUBLINGUAL DAILY zolpidem 10 mg tablet 10 mg PO BEDTIME PRN (Reason: Sleep) sumatriptan succinate 100 mg tablet 100 mg PO BID PRN (Reason: migraine) Incruse Ellipta 62.5 mcg/actuation blister with device 1 inh inhalation DAILY 30 Days Qty: 1 6RF Referrals: [facility] [place]Provider Group] - 1 week Sharifa Gamble MD [Primary Care Provider] - 2 days Stand Alone Forms: Work/School Release
[2023-05-12] MEDS: LORazepam 2 MG/ML VIAL 1 MG IVPUSH (12:23)
[2023-05-12] MEDS: ondansetron HCL 4 MG/2 ML VIAL IVPUSH (12:23)
[2023-05-12] MEDS: levETIRAcetam in NaCl (iso-os) 1,000 MG/100 ML PIGGYBACK 400 MG IV (12:30)
[2023-05-12] MEDS: Morphine Sulfate 4 MG/ML CARTRIDGE IVPUSH (13:49)
[2023-05-12 14:14] VITALS: BP 147/77; PULSE 96; RESP 22; TEMP 37.1; O2SAT 97
[2023-05-12] MEDS: iohexoL 350 MG/ML 100 ML INFUS..BTL IV (14:49)
--- NOTE | 2023-05-12 15:18 | PC.NURSE ---
report given to [facility] ED charge nurse
== END 2023-05-12 15:18 | disposition short-term general hospital (02) ==
PROVIDERS: Emergency Provider Student in an Organized Health Care Education/Training Program; PCP Internal Medicine
DX: S02.40DA Maxillary fracture, left side, initial encounter for closed fracture (principal); G40.909 Epilepsy, unspecified, not intractable, without status epilepticus; R11.2 Nausea with vomiting, unspecified; M54.2 Cervicalgia; R51.9 Headache, unspecified; R10.30 Lower abdominal pain, unspecified; R07.89 Other chest pain; W01.10XA Fall on same level from slipping, tripping and stumbling with subsequent striking against unspecified object, initial encounter; Y93.9 Activity, unspecified; Y92.9 Unspecified place or not applicable; Y99.8 Other external cause status; Z79.899 Other long term (current) drug therapy
CPT/HCPCS: 36415; 70450; 70486; 71260; 72125; 74177; 80053; 85025; 96365; 96375; 99284; J1953; J2060; J2270; J2405; Q9967

== ENCOUNTER 2023-10-07 08:03 | Outpatient (REF) | payer OTHER, SELFPAY ==
--- NOTE | ~2023-10-07 | FL_ITS ---
EXAMINATION: XR FLUOROSCOPY UPPER GI WITH AIR CLINICAL INFORMATION: Dysphagia. History of metastatic lung cancer status post radiation COMPARISON: Upper GI 2020/ TECHNIQUE: Fluoroscopic air contrast upper GI examination was performed utilizing standard techniques with thin and thick barium and effervescent granules. Numerous spot images were obtained. FINDINGS: Lateral cine images of the oropharynx and hypopharynx demonstrate normal swallow mechanism with normal epiglottic inversion and soft palate elevation. No tracheal penetration, glottic or subglottic aspiration identified. No nasopharyngeal reflux present. Hypopharyngeal structures appear normal without evidence of mass or diverticulum. There was no significant cricopharyngeal achalasia. Dual and single contrast images of the esophagus demonstrate a normal caliber, contour, and mucosal pattern. There is slight narrowing of the midesophagus at the level of the aortic arch as seen on prior studies. No masses or ulcerations are identified. Esophageal peristalsis is moderately disorganized. There is mild narrowing of the GE junction above the hiatal hernia. The patient swallowed the barium pill without difficulty. The barium pill failed to pass beyond the midesophagus at the level of the aortic arch. A small type I hiatal hernia is present. No significant gastroesophageal reflux was seen during the course of the examination and on reflux views. Dual contrast and single contrast images of the stomach demonstrated a normal contour. Evaluation of the gastric mucosa is limited due to lack of distention of the stomach from poor tolerance and effervescent granules. The gastric rugal folds have a thickened appearance, which suggest gastritis, however, may be due to underdistention of the stomach. No masses are identified. Contrast freely passed into the gastric antrum and duodenal bulb without delay. Single and air-contrast images of the duodenal bulb demonstrate no abnormality. The duodenal sweep has a normal appearance, course, and mucosal fold appearance. The imaged proximal jejunum has a normal fold pattern and caliber. FLUOROSCOPY TIME: 5 minutes 19 seconds Number of Spot Images: 9 Number of Cine: 13 DOSE AREA PRODUCT: 2301 uGy-m2 (microgray-meter squared) FL/FL barium swallow with air IMPRESSION: 1. Narrowed appearance of the midesophagus at the level the aortic arch as seen on prior studies. This likely represents a mild radiation-induced stricture. The barium tablets fails to pass beyond this segment of esophagus. 2. Mild narrowing of the GE junction that may represent achalasia or a benign stricture. Recommend correlation with EGD. 3. Small type I hiatal hernia without evidence of gastroesophageal reflux 4. Limited evaluation of the gastric mucosa due to lack of distention of the stomach from poor tolerance of the effervescent granules. The gastric rugal folds have a thickened appearance which may suggest gastritis, however, may be also due to underdistention of the stomach. 5. Moderately disorganized esophageal peristalsis This procedure was performed by Candido Avelar PA-C, and supervised by Dr. Negrete
== END 2023-10-07 08:04 | disposition home or self-care (01) ==
LOC: HO.XRAY 08:03
PROVIDERS: PCP Internal Medicine; Visit Provider Internal Medicine
DX: R13.10 Dysphagia, unspecified (principal); K22.2 Esophageal obstruction; Z92.3 Personal history of irradiation; Z85.118 Personal history of other malignant neoplasm of bronchus and lung
CPT/HCPCS: 74221

== ENCOUNTER → 2023-10-07 08:04 | Outpatient (BNV) | payer OTHER, SELFPAY | PROVIDERS: PCP Internal Medicine; Visit Provider Physician Assistant Surgical | DX: R13.10 Dysphagia, unspecified (principal) | CPT/HCPCS: 74246 ==

== ENCOUNTER 2023-10-11 03:40 | Emergency (ER) | payer OTHER, SELFPAY ==
--- NOTE | ~2023-10-11 | CT_ITS ---
EXAMINATION: CT ABDOMEN AND PELVIS WITH CONTRAST CLINICAL INFORMATION: Abdominal pain. COMPARISON: 05/12/2023 TECHNIQUE: Multidetector volumetric images were obtained from the superior aspect of the liver through the pubic symphysis following administration 85 mL of Omnipaque 350 intravenous contrast. Sagittal and coronal reformatted images were obtained on the technologist's workstation. Oral contrast: No This CT examination was performed using dose optimization techniques as appropriate, variously including the following: *Automated exposure control *Adjustment of mA and/or kV according to patient size (this includes techniques or standardized protocols for targeted exams where dose is matched to indication/reason for exam; i.e. extremities or head) *Use of iterative reconstruction technique DLP: 452 mGy-cm FINDINGS: LUNG BASES: No pleural or pericardial effusion. LIVER, GALLBLADDER, AND BILIARY TREE: The liver is decreased in attenuation. No suspicious hepatic lesion. No biliary ductal dilatation. The gallbladder is surgically absent. PANCREAS: Atrophic. SPLEEN: Unremarkable. ADRENAL GLANDS: Unremarkable. KIDNEYS AND URETERS: The kidneys are normal in size, shape, and attenuation. No hydronephrosis, hydroureter, or calculi seen. No perinephric stranding. BLADDER: Unremarkable. GASTROINTESTINAL TRACT: Diffuse small and large bowel wall thickening and submucosal edema. There is mesenteric edema and interloop fluid. Mucosal hyperenhancement. The appendix is within normal limits. No small bowel obstruction. Small free fluid in the abdomen and pelvis. ABDOMINAL WALL: No significant hernia is appreciated. LYMPH NODES: Few subcentimeter mesenteric lymph nodes. VASCULAR: Normal caliber abdominal aorta. PELVIC VISCERA: Prominence of the left parametrial veins. OSSEOUS STRUCTURES: No destructive bone lesions. CT/CT abdomen pelvis w IV con IMPRESSION: Diffuse small and large bowel wall thickening and submucosal edema with mucosal hyperenhancement. Mesenteric edema and interloop fluid with small ascites in the abdomen and pelvis. This most likely represents enterocolitis. Infectious and inflammatory etiologies should be considered.
[2023-10-11 03:57] VITALS: BP 164/68; PULSE 104; O2SAT 97
[2023-10-11 04:10] VITALS: BP 177/94; PULSE 80; RESP 18; TEMP 36.9; O2SAT 98; BMI 22.1
[2023-10-11 04:21] LABS: Basophils Absolute Auto 0.1 X10*3/uL (0.0-0.2); Basophils Percent Auto 0.5 % (0-2); Eosinophils Absolute Auto 0.2 X10*3/uL (0.0-0.4); Eosinophils Percent Auto 1.3 % (0-4); Hematocrit 40.4 % (37.0-47.0); Hemoglobin 14.5 g/dl (12.0-16.0); Imm Gran Abs Auto 0.07 X10*3/uL (0.00-0.03); Imm Gran Pct Auto 0.5 % (0.0-0.4); Lymphocytes Absolute Auto 2.2 X10*3/uL (1.2-4.9); Lymphocytes Percent Auto 14.2 % (20-40); MANUAL DIFF FLAG NO; Mean Corpuscular HGB Conc 35.9 g/dl (31.0-35.0); Mean Corpuscular Hemoglobin 29.5 pg (27.0-33.0); Mean Corpuscular Volume 82.1 fL (80.0-98.0); Mean Platelet Volume 11.9 fL (9.4-12.3); Monocytes Absolute Auto 0.8 X10*3/uL (0.1-1.2); Monocytes Percent Auto 5.1 % (2-11); Neutrophils Absolute Auto 12.2 x10*3/uL (2.0-8.3); Neutrophils Percent Auto 78.4 % (45-73); Platelet Count 271 X10*3/uL (160-400); Red Blood Count 4.92 X10*6/uL (4.20-5.50); Red Cell Distribution Width 12.4 % (11.0-16.0); White Blood Count 15.5 X10*3/uL (4.8-10.8)
[2023-10-11 04:37] LABS: Alanine Aminotransferase 13 U/L (0-31); Albumin Level 4.4 g/dL (3.5-5.0); Alkaline Phosphatase 134 U/L (39-117); Anion Gap 17 (12-20); Aspartate Amino Transferase 10 U/L (5-31); Bilirubin Direct 0.2 mg/dL (0.0-0.5); Bilirubin Total 0.6 mg/dL (0.0-1.0); Blood Urea Nitrogen 8 mg/dL (9-16); Calcium 10.3 mg/dL (8.4-10.2); Carbon Dioxide 24 mmol/L (22-29); Chloride 100 mmol/L (96-108); Creatinine Clr Calc Pharmacy 57.6; Estimated Glomerular Filt Rate > 60; Glucose Random 380 mg/dL (60-115); Lipase 14 U/L (8-78); Magnesium 1.6 mg/dL (1.6-2.6); Potassium 3.1 mmol/L (3.3-5.1); Sodium 138 mmol/L (135-145); Total Protein 7.9 g/dL (6.5-8.0)
--- NOTE | 2023-10-11 04:46 | ED.NAVMDI ---
HPI - Nausea/Vomiting/Diarrhea General Chief complaint: Nausea/Vomiting/Diarrhea Stated complaint: VOMITTING/WEAKNESS Time Seen by Provider: 10/11/23 04:31 Source: patient, EMS and old records reviewed Mode of arrival: EMS Limitations: no limitations History of Present Illness ED Provider: MELYSSA MURPHY Narrative: 58 yo male with PMH of anemia, colitis, opiate use disorder, UTI, adrenal insuffiency, DM, chronic pain syndrome, non-small cell lung cancer stage 4 , radiation induced esophagitis here with c/o having barium swallow yesterday and afterwards developed n/v/d and it triggered exacerbation of her chronic abdominal pain. She has not been able to eat or drink since 2pm. She denies fevers. She reports she is very weak. MD elicited complaint: nausea, vomiting, diarrhea and abdominal pain Pertinent past history: other Onset (ago): day(s) (yesterday 2pm) Description of vomiting: food contents and watery Description of diarrhea: watery Associated nausea: Yes Associated abdominal pain: Yes Location of pain: diffuse Radiation: diffuse Pain consistency: constant Severity: similar to previous episodes Quality: cramping Exacerbating factors: eating and movement Relieving factors: none Context: other (states started after her barium swallow) Associated symptoms: loss of appetite, malaise, nausea/vomiting and weakness Related Data Home Medications ?Medication ?Instructions ?Recorded ?Confirmed clonidine HCl 0.1 mg tablet 0.1 mg PO TID 12/17/19 11/30/22 hydroxyzine pamoate 50 mg capsule 50 mg PO Q8H PRN Anxiety 12/17/19 11/30/22 zolpidem 10 mg tablet 10 mg PO BEDTIME PRN Sleep 03/08/20 11/30/22 ascorbic acid (vitamin C) 500 mg 500 mg PO DAILY 02/10/21 11/30/22 tablet (Vitamin C) biotin 5,000 mcg sublingual tablet 5,000 mcg sublingual DAILY 02/10/21 11/30/22 cholecalciferol (vitamin D3) 25 25 mcg PO DAILY 02/10/21 11/30/22 mcg (1,000 unit) tablet (Vitamin D3) magnesium 500 mg tablet 500 mg PO DAILY 03/24/21 11/30/22 fluoxetine 40 mg PO DAILY 05/05/21 11/30/22 sumatriptan succinate 50 mg tablet 100 mg PO DAILY PRN migraine 05/05/21 11/30/22 headache sumatriptan succinate 100 mg tablet 100 mg PO BID PRN migraine 11/01/21 11/30/22 Previous Rx's ?Medication ?Instructions ?Recorded blood sugar diagnostic (FreeStyle #150 ea 07/21/20 Lite Strips) scopolamine base 1 mg over 3 days 1 patch transdermal Q3D #5 ea 08/05/20 transdermal patch levetiracetam 500 mg tablet 500 mg PO BID #180 tabs 12/20/21 Incruse Ellipta 62.5 mcg/actuation 1 inh inhalation DAILY 30 days #1 05/15/23 powder for inhalation ea (umeclidinium) ondansetron 4 mg disintegrating 4 mg PO Q8H PRN nausea and 09/14/23 tablet vomiting #30 tabs Allergies Allergy/AdvReac Type Severity Reaction Status Date / Time acetaminophen [Tylenol] AdvReac Unknown Abdominal Verified 10/11/23 04:12 Pain ibuprofen AdvReac Unknown Abdominal Verified 10/11/23 04:12 Pain Review of Systems Review of Systems: Constitutional : No Weight loss, No Fever, No Chills ENT/Mouth : No sore throat, No Rhinorrhea Eyes: No Swelling, No Redness Cardiovascular : No Chest Pain, No SOB, NoEdema Respiratory : No Cough, No Sputum, No Wheezing Gastrointestinal : Positive Nausea, Positive Vomiting, positive Diarrhea, positive abdominal Pain, No Hematochezia, No Melena Genitourinary : No Dysuria, No Urinary Frequency, No Hematuria, No Urgency Musculoskeletal : No joint pain, No Myalgias, No Joint Swelling Skin : No Skin Lesions, No rash Neuro : pos Weakness, No Numbness, No Dizziness, No Headache All other systems reviewed and are negative. Gastrointestinal: Gastrointestinal: Reports nausea PMFSH Past Medical History Attestation statement: The following information was validated with the patient. Source: old records reviewed Medical History Pulmonary nodule Diabetes type 2, uncontrolled Colitis Opioid use disorder Arthritis Fibromyalgia History of lung cancer Multinodular goiter Adrenal insufficiency due to cancer therapy Newly diagnosed diabetes Subclinical hyperthyroidism Pancreatitis (~02/2018) Radiation-induced esophagitis Hypothyroidism Depression Opioid abuse Asthma COPD (chronic obstructive pulmonary disease) Aftercare following left shoulder joint replacement surgery Non-small cell carcinoma of left lung, stage 4 Surgical History History of esophagogastroduodenoscopy (EGD) (~09/04/19) History of cholecystectomy (~12/02/08) History of endometrial ablation (~07/25/06) History of esophageal dilatation (~02/24/18) Hx of shoulder surgery (~2014) Hx of blepharoplasty (~2019) History of Family History Family History Father Pancreatic cancer Mother Diabetes Skin cancer Rheumatoid arthritis Brother Diabetes Sister Diabetes Other History of thyroid disorder Social History Social History Household Members: Family [facility] Do you presently have visiting nurse or other home services: Yes Alcohol intake: current Alcohol intake frequency: a few times a week Alcohol type: wine Comment: refuses bed alarm Patient Tobacco Use Status: Current someday Tobacco user Cigarettes Per Day: 4 Years Smoked: 30 Smoked in Last 30 Days: No Second Hand Smoke Exposure: No Use of substances other than those prescribed or required for medical reasons: No Advance Directives: Yes Advance Directives on File: Yes Advance Directives Date on File: 05/12/20 service: No Current occupational status: unemployed and disabled Physical Exam Vital Signs: Vital Signs: Last Vital Signs Temp 98.7 F 10/11/23 06:00 Pulse 94 10/11/23 06:00 Resp 18 10/11/23 06:00 BP 142/77 H 10/11/23 06:00 Pulse Ox 99 10/11/23 06:00 O2 Del Method Room Air 10/11/23 06:00 BMI result Body Mass Index 22.1 Appearance: Alert. Oriented X3. Mild acute distress. Eyes: Pupils equal, round and reactive to light. ENT: Pharynx dry Neck: Normal inspection. Neck supple. CVS: Normal heart rate and rhythm. Pulses normal. Respiratory: No respiratory distress. Breath sounds normal. Abdomen: Soft and diffuse ttp Skin: Skin warm and dry. pale skin color. Normal skin turgor. Extremities: No lower extremity edema. No calf ttp Neuro: Oriented X 3. No motor deficit. No sensory deficit. Course Course Course Narrative: signed out to Bharathi pending repeat assessment 745am. Medications Administered Discontinued Medications Generic Name Dose Route Start Last Admin Trade Name Dustin PRN Reason Stop Dose Admin Diphenhydramine HCl 25 mg 10/11/23 05:00 10/11/23 05:18 Diphenhydramine Hcl 50 Mg/Ml Vial IVPUSH 10/11/23 05:01 25 mg ONCE ONE Administration Hydromorphone HCl 1 mg 10/11/23 05:00 10/11/23 05:17 Hydromorphone Hcl 1 Mg/Ml Syringe IVPUSH 10/11/23 05:01 1 mg ONCE ONE Administration Protocol Sodium Chloride 1,000 mls @ 999 mls/hr 10/11/23 05:00 10/11/23 05:17 Ns IV 10/11/23 06:00 999 mls/hr .Q1H1M ONE Administration Sodium Chloride 1,000 mls @ 999 mls/hr 10/11/23 05:29 10/11/23 06:31 Ns IV 10/11/23 06:29 999 mls/hr .Q1H1M ONE Administration Metoclopramide HCl 10 mg 10/11/23 05:00 10/11/23 05:17 Metoclopramide Hcl 10 Mg/2 Ml Vial IVPUSH 10/11/23 05:01 10 mg ONCE ONE Administration Medical Decision Making Medical Decision Making [facility] Narrative: 80 yo male with PMH of esophageal adenocarcinoma s/p distal esophagectomy with gastric pull through in 2019 at [facility] [place], prostate cancer, recurrence of esophageal cancer follows with Dr. Mcmullen no current treatment, hx of SBO here with c/o n/v/d and abdominal cramps after having barium swallow yesterday at this time will obtain labs, hydrate with 2L of IVF, supportive medications. Has no localized ttp states it all started after barium swallow wbc count likely related to vomiting and not infection or severe sepsis Differential Diagnosis Differential Diagnoses: The differential diagnosis associated with the presentation includes dehydration, cyclical vomiting, gastroparesis Admission/Observation Consideration of admission/observation: Escalation of care including admission/observation considered patient is asleep will sign out to Dr. Garvin pending she wakes up and PO challenge Lab Data [facility] Lab Attestation statement: I reviewed the patient's lab results. 10/11/23 04:17 10/11/23 04:17 Labs: Lab Results 10/11/23 Range/Units 04:17 WBC 15.5 H (4.8-10.8) X10*3/uL RBC 4.92 (4.20-5.50) X10*6/uL Hgb 14.5 (12.0-16.0) g/dl Hct 40.4 (37.0-47.0) % MCV 82.1 (80.0-98.0) fL MCH 29.5 (27.0-33.0) pg MCHC 35.9 H (31.0-35.0) g/dl RDW 12.4 (11.0-16.0) % Plt Count 271 D (160-400) X10*3/uL MPV 11.9 (9.4-12.3) fL Immature Gran % (Auto) 0.5 H (0.0-0.4) % Neut % (Auto) 78.4 H (45-73) % Lymph % (Auto) 14.2 L (20-40) % Clark % (Auto) 5.1 (2-11) % Eos % (Auto) 1.3 (0-4) % Baso % (Auto) 0.5 (0-2) % Lymph # (Auto) 2.2 (1.2-4.9) X10*3/uL Clark # (Auto) 0.8 (0.1-1.2) X10*3/uL Eos # (Auto) 0.2 (0.0-0.4) X10*3/uL Baso # (Auto) 0.1 (0.0-0.2) X10*3/uL Abs Immat Gran (auto) 0.07 H (0.00-0.03) X10*3/uL Absolute Neuts (auto) 12.2 H (2.0-8.3) x10*3/uL Absolute Nucleated RBC 0.000 (0.0-0.012) X10*3/uL Nucleated RBC % (auto) 0.0 (0.0-0.2) /100WBC Sodium 138 (135-145) mmol/L Potassium 3.1 L (3.3-5.1) mmol/L Chloride 100 (96-108) mmol/L Carbon Dioxide 24 (22-29) mmol/L Anion Gap 17 (12-20) BUN 8 L (9-16) mg/dL Creatinine 0.88 (0.5-1.4) mg/dL Estim Creat Clear Calc 57.6 Estimated GFR > 60 Random Glucose 380 H* (60-115) mg/dL Calcium 10.3 H D (8.4-10.2) mg/dL Magnesium 1.6 (1.6-2.6) mg/dL Total Bilirubin 0.6 (0.0-1.0) mg/dL Direct Bilirubin 0.2 (0.0-0.5) mg/dL AST 10 (5-31) U/L ALT 13 (0-31) U/L Alkaline Phosphatase 134 H (39-117) U/L Total Protein 7.9 (6.5-8.0) g/dL Albumin 4.4 (3.5-5.0) g/dL Lipase 14 (8-78) U/L Independent Historian Clinical information obtained from an independent historian. History obtained from or confirmed by: Spouse External Record Review External record reviewed: Inpatient record and Office record Prescription Management I considered prescription management with: Other Critical Care Time Critical Care Time Critical Care Time: Yes Total Critical Care Time: 35 Attestation: 2L of IVF, pain improved with IV dilaudid, review of records I attest to this time spent taking care of the patient Discharge Plan Discharge Clinical Impression: Nausea vomiting and diarrhea Patient Disposition: Still a Patient Instructions: Acute Nausea and Vomiting (ED), Acute Diarrhea (ED) Prescriptions: No Action (DME) FreeStyle Lite Strips Strip See Rx Instructions .MEDSUPPLY Qty: 150 6RF Rx Instructions: 4 times a day Incruse Ellipta 62.5 mcg/actuation blister with device 1 inh inhalation DAILY 30 Days Qty: 1 6RF ondansetron 4 mg tablet,disintegrating 4 mg PO Q8H PRN (Reason: nausea and vomiting) Qty: 30 0RF clonidine HCl 0.1 mg tablet 0.1 mg PO TID hydroxyzine pamoate 50 mg capsule 50 mg PO Q8H PRN (Reason: Anxiety) scopolamine base 1 mg over 3 days Patch 3 Day 1 patch TRANSDERMAL Q3D Qty: 5 2RF magnesium 500 mg Tablet 500 mg PO DAILY fluoxetine 40 mg PO DAILY sumatriptan succinate 50 mg tablet 100 mg PO DAILY PRN (Reason: migraine headache) Rx Instructions: do not exceed 4 doses per 24 hrs levetiracetam 500 mg tablet 500 mg PO BID Qty: 180 1RF ascorbic acid (vitamin C) [Vitamin C] 500 mg Tablet 500 mg PO DAILY cholecalciferol (vitamin D3) [Vitamin D3] 25 mcg (1,000 unit) Tablet 25 mcg PO DAILY biotin 5,000 mcg Tablet, Sublingual 5,000 mcg SUBLINGUAL DAILY zolpidem 10 mg tablet 10 mg PO BEDTIME PRN (Reason: Sleep) sumatriptan succinate 100 mg tablet 100 mg PO BID PRN (Reason: migraine) Print Language: Nauruan
[2023-10-11] MEDS: 0.9 % Sodium Chloride 1,000 ML 999 ML IV ×2 (05:17→06:31)
[2023-10-11] MEDS: HYDROmorphone HCl 1 MG/ML SYRINGE IVPUSH (05:17)
[2023-10-11] MEDS: Metoclopramide HCl 10 MG/2 ML VIAL IVPUSH (05:17)
[2023-10-11] MEDS: diphenhydrAMINE HCL 50 MG/ML VIAL 25 MG IVPUSH ×2 (05:18→09:19)
[2023-10-11 06:00] VITALS: BP 142/77; PULSE 94; RESP 18; TEMP 37.1; O2SAT 99
[2023-10-11 08:02] VITALS: BP 177/75; PULSE 69; RESP 18; TEMP 36.9; O2SAT 96
[2023-10-11] MEDS: Potassium Chloride/H20 10 MEQ/100 ML PIGGYBACK 100 MEQ IV ×2 (08:50→10:16)
[2023-10-11] MEDS: droPERidol 5 MG/2 ML VIAL 1.25 MG IM (09:19)
[2023-10-11] MEDS: iohexoL 350 MG/ML 100 ML INFUS..BTL IV (09:59)
[2023-10-11 10:42] VITALS: BP 173/91; PULSE 78; RESP 18; TEMP 37.1; O2SAT 98
[2023-10-11 12:15] VITALS: BP 160/70; PULSE 66; RESP 16; TEMP 36.8; O2SAT 97
== END 2023-10-11 12:17 | disposition home or self-care (01) ==
PROVIDERS: Emergency Medicine; Emergency Provider Student in an Organized Health Care Education/Training Program
DX: R11.2 Nausea with vomiting, unspecified (principal); R19.7 Diarrhea, unspecified; E11.9 Type 2 diabetes mellitus without complications; G89.4 Chronic pain syndrome; R53.1 Weakness; K20.80 Other esophagitis without bleeding; C15.9 Malignant neoplasm of esophagus, unspecified; E27.40 Unspecified adrenocortical insufficiency; C34.92 Malignant neoplasm of unspecified part of left bronchus or lung; J45.909 Unspecified asthma, uncomplicated; F17.210 Nicotine dependence, cigarettes, uncomplicated; F11.10 Opioid abuse, uncomplicated; Z92.3 Personal history of irradiation; Z79.899 Other long term (current) drug therapy
CPT/HCPCS: 36415; 74177; 80053; 82248; 83690; 83735; 85025; 96365; 96372; 96375; 99284; J1170; J1200; J1790; J2765; J3480; Q9967

== ENCOUNTER 2023-11-21 17:46 | Inpatient (IN) | payer OTHER, SELFPAY ==
--- NOTE | ~2023-11-21 | CT_ITS ---
EXAMINATION: CT ABDOMEN AND PELVIS WITH CONTRAST CLINICAL INFORMATION: Severe pain, nausea vomiting diarrhea COMPARISON: 10/11/2023 TECHNIQUE: Multidetector volumetric images were obtained from the superior aspect of the liver through the pubic symphysis following administration 85 mL of Omnipaque 350 intravenous contrast. Sagittal and coronal reformatted images were obtained on the technologist's workstation. Oral contrast: No This CT examination was performed using dose optimization techniques as appropriate, variously including the following: *Automated exposure control *Adjustment of mA and/or kV according to patient size (this includes techniques or standardized protocols for targeted exams where dose is matched to indication/reason for exam; i.e. extremities or head) *Use of iterative reconstruction technique DLP: 364 mGy-cm FINDINGS: LUNG BASES: Unremarkable. ABDOMINAL AND PELVIC WALL: Unremarkable. LIVER AND BILIARY TREE: Hepatic steatosis. GALLBLADDER: Status post cholecystectomy. PANCREAS: Unremarkable. SPLEEN: Unremarkable. ADRENAL GLANDS: Unremarkable. KIDNEYS AND URETERS: Unremarkable. GASTROINTESTINAL TRACT: Thickening and hyperemia of the terminal ileum with moderate volume fluid in the pelvis. There is mesenteric edema and interloop fluid with mucosal hyperenhancement.. The appendix is mildly thickened with fluid surrounding the tip with mild hyperemia (4:415). VASCULAR: Aortic atherosclerotic calcifications, no aneurysmal dialation. LYMPH NODES/PERITONEUM: No lymphadenopathy. FREE FLUID: None. BLADDER: Unremarkable. PELVIC VISCERA: Unremarkable. OSSEOUS STRUCTURES: Unremarkable. CT/CT abdomen pelvis w IV con IMPRESSION: * Thickening and hyperemia of the distal ileum with moderate volume fluid in the pelvis. There is mesenteric edema and interloop fluid with mucosal hyperenhancement. These findings are favored to reflect infectious or inflammatory enteritis. * The appendix is mildly thickened with fluid surrounding the tip with mild hyperemia. This may reflect acute appendicitis versus reactive inflammation secondary to adjacent enteritis. * Hepatic steatosis. . Electronically signed by: Tahira Carrera MD 11/21/2023 10:48 PM EDT
[2023-11-21 18:05] LABS: Glucose, Whole Blood 442 mg/dL (60-115)
[2023-11-21 18:17] VITALS: BP 110/74; BP 91/55; PULSE 63; PULSE 76; RESP 18; TEMP 36.3; O2SAT 100; O2SAT 98; BMI 24.0
--- NOTE | 2023-11-21 18:22 | ED.NAVMDI ---
HPI - Nausea/Vomiting/Diarrhea General Chief complaint: Abdominal Pain Stated complaint: hypokalemic per ems, NVD X3 days, poc in 500's Time Seen by Provider: 11/21/23 18:20 Source: patient, EMS, RN notes reviewed and old records reviewed Mode of arrival: EMS Limitations: no limitations History of Present Illness ED Provider: Valencia Hamilton PA-C HPI Narrative: 58 yo male with PMH of anemia, colitis, opiate use disorder, UTI, adrenal insuffiency, DM, chronic pain syndrome, non-small cell lung cancer stage 4 , radiation induced esophagitis, fibromyalgia, migraines who presents to the ER via EMS for evaluation of diffuse cramping abdominal pain, nausea, vomiting, diarrhea for the last 5 days as well as low potassium found on labwork done at home today. Patient reports that on November 04 she had surgery on her gums with a oral surgeon. She was on antibiotics. She also reports recently having a barium swallow and was unable to tolerate it. She developed diffuse abdominal cramping along with nausea, recurrent nonbloody vomiting and nonbloody diarrhea about 5 days ago. She states whenever she tries to eat or drink something she immediately vomits and has diarrhea. She has been vomiting several times per day. She states she can not keep anything down. There was an at home service that came to her house today, did labs, gave her IV medications and IV fluids. She was found to have low potassium and was sent to the ER for further evaluation and treatment. Of note patient was seen here for similar complaints in early October. MD elicited complaint: nausea, vomiting, diarrhea and other Pertinent past history: other (Radiation esophagitis) Location of pain: diffuse Radiation: diffuse Severity: severe Quality: cramping Exacerbating factors: eating Relieving factors: none Context: recent antibiotic use Associated symptoms: loss of appetite, malaise, nausea/vomiting and weakness Related Data Home Medications ?Medication ?Instructions ?Recorded ?Confirmed clonidine HCl 0.1 mg tablet 0.1 mg PO TID 12/17/19 11/22/23 hydroxyzine pamoate 50 mg capsule 50 mg PO Q8H PRN Anxiety 12/17/19 11/22/23 zolpidem 10 mg tablet 10 mg PO BEDTIME PRN Sleep 03/08/20 11/22/23 ascorbic acid (vitamin C) 500 mg 500 mg PO DAILY 02/10/21 11/30/22 tablet (Vitamin C) biotin 5,000 mcg sublingual tablet 5,000 mcg sublingual DAILY 02/10/21 11/22/23 cholecalciferol (vitamin D3) 25 25 mcg PO DAILY 02/10/21 11/30/22 mcg (1,000 unit) tablet (Vitamin D3) magnesium 500 mg tablet 500 mg PO DAILY 03/24/21 11/30/22 fluoxetine 40 mg PO DAILY 05/05/21 11/30/22 sumatriptan succinate 50 mg tablet 100 mg PO DAILY PRN migraine 05/05/21 11/30/22 headache sumatriptan succinate 100 mg tablet 100 mg PO BID PRN migraine 11/01/21 11/30/22 Xanax 1 mg PO TID 11/22/23 11/22/23 clonidine 11/22/23 Previous Rx's ?Medication ?Instructions ?Recorded blood sugar diagnostic (FreeStyle #150 ea 07/21/20 Lite Strips) scopolamine base 1 mg over 3 days 1 patch transdermal Q3D #5 ea 08/05/20 transdermal patch levetiracetam 500 mg tablet 500 mg PO BID #180 tabs 12/20/21 Incruse Ellipta 62.5 mcg/actuation 1 inh inhalation DAILY 30 days #1 05/15/23 powder for inhalation ea (umeclidinium) ondansetron 4 mg disintegrating 4 mg PO Q8H PRN nausea and 09/14/23 tablet vomiting #30 tabs Allergies Allergy/AdvReac Type Severity Reaction Status Date / Time acetaminophen [Tylenol] AdvReac Unknown Abdominal Verified 10/11/23 04:12 Pain ibuprofen AdvReac Unknown Abdominal Verified 11/21/23 18:28 Pain PMFSH Past Medical History Medical History Pulmonary nodule Diabetes type 2, uncontrolled Colitis Opioid use disorder Arthritis Fibromyalgia History of lung cancer Multinodular goiter Adrenal insufficiency due to cancer therapy Newly diagnosed diabetes Subclinical hyperthyroidism Pancreatitis (~02/2018) Radiation-induced esophagitis Hypothyroidism Depression Opioid abuse Asthma COPD (chronic obstructive pulmonary disease) Aftercare following left shoulder joint replacement surgery Non-small cell carcinoma of left lung, stage 4 Surgical History History of esophagogastroduodenoscopy (EGD) (~09/04/19) History of cholecystectomy (~12/02/08) History of endometrial ablation (~07/25/06) History of esophageal dilatation (~02/24/18) Hx of shoulder surgery (~2014) Hx of blepharoplasty (~2018) History of Family History Family History Father Pancreatic cancer Mother Diabetes Skin cancer Rheumatoid arthritis Brother Diabetes Sister Diabetes Other History of thyroid disorder Social History Social History Household Members: Spouse Housing: Apartment Do you presently have visiting nurse or other home services: Yes ([facility]) Alcohol intake: current Alcohol intake frequency: a few times a week Alcohol type: wine Comment: refuses bed alarm Patient Tobacco Use Status: Current someday Tobacco user Tobacco use type: Cigarette Cigarettes Per Day: 4 Years Smoked: 30 Smoked in Last 30 Days: Yes Patient Interested in Nicotine Replacement: Yes Patient Given Instructions on How to Stop Smoking: No Second Hand Smoke Exposure: No Use of substances other than those prescribed or required for medical reasons: No Have you been hit, kicked, punched, or otherwise hurt by someone within the past year? If so, by whom?: No Do you feel safe in your current relationship?: Yes Is there a partner from a previous relationship who is making you feel unsafe now?: No Are you made to feel afraid or neglected: No Advance Directives: Yes Advance Directives on File: Yes Advance Directives Date on File: 05/12/20 Do you have a plan to hurt others: No Plan Recently lost weight without trying: Yes How much weight loss: 24-33 pounds Eating poorly because of decreased appetite: Yes Nutrition screen score: 6 Nutrition Risks: Difficulty swallowing Patient : No : No Poor oral hygiene: No service: No Current occupational status: unemployed and disabled Physical Exam Vital Signs: Vital Signs: Last Vital Signs Temp 98.1 F 11/22/23 03:15 Pulse 70 11/22/23 03:15 Resp 18 11/22/23 03:15 BP 155/67 H 11/22/23 03:15 Pulse Ox 99 11/22/23 03:15 O2 Del Method Room Air 11/22/23 03:15 BMI result Body Mass Index 24.0 Medications Administered Generic Name Dose Route Start Last Admin Trade Name Dustin PRN Reason Stop Dose Admin Alprazolam 1 mg 11/22/23 04:15 11/22/23 05:02 Alprazolam 0.5 Mg Tablet PO 1 mg TID SHABANA Administration Hydromorphone HCl 0.5 mg 11/22/23 01:14 11/22/23 02:10 Hydromorphone Hcl 0.5 Mg/0.5 Ml Syringe SUBCUT 0.5 mg Q4H PRN Administration Pain, Severe (Pain Scale 7-10) Protocol Lactated Ringer's 1,000 mls @ 125 mls/hr 11/22/23 01:15 11/22/23 02:10 Lr IVCONT 125 mls/hr .Q8H SHABANA Administration Piperacillin Sod/Tazobactam 50 mls @ 100 mls/hr 11/22/23 07:00 11/22/23 06:22 Sod 3.375 gm/ Sodium Chloride IV 100 mls/hr 0000,0600,1200,1800 SHABANA Administration Discontinued Medications Generic Name Dose Route Start Last Admin Trade Name Dustin PRN Reason Stop Dose Admin Acetaminophen/Butalbital/Caffeine 1 tab 11/21/23 21:52 11/21/23 22:40 Butalb/Acetamin/Caff 50/325/40 Tablet PO 11/21/23 21:53 Not Given ONCE ONE Hydromorphone HCl 1 mg 11/21/23 19:46 11/21/23 20:08 Hydromorphone Hcl 1 Mg/Ml Syringe IVPUSH 11/21/23 19:47 1 mg ONCE ONE Administration Protocol Lactated Ringer's 1,000 mls @ 999 mls/hr 11/21/23 18:30 11/21/23 21:44 Lr IV 11/21/23 19:30 Infused .Q1H1M SHABANA Infusion Piperacillin Sod/Tazobactam 50 mls @ 100 mls/hr 11/22/23 00:39 11/22/23 02:37 Sod 3.375 gm/ Sodium Chloride IV 11/22/23 01:08 Infused ONCE ONE Infusion Influenza Virus Vaccine 0.5 ml 11/22/23 03:20 11/22/23 05:02 Flu Vacc [id number](6mos Up)/Pf 0.5 Ml Syringe IM 11/22/23 03:21 0.5 ml .ONCE ONE Administration Insulin Human Regular 5 unit 11/21/23 20:02 11/21/23 20:30 Insulin Regular, Human 100 Unit/Ml 10 Ml Vial IVPUSH 11/21/23 20:03 5 unit ONCE ONE Administration Iohexol 85 ml 11/21/23 20:29 11/21/23 20:29 Iohexol 350 Mg/Ml 100 Ml Infus..Btl IV 11/21/23 20:30 85 ml ONCE ONE Administration Morphine Sulfate 4 mg 11/21/23 18:37 11/21/23 18:58 Morphine Sulfate 4 Mg/Ml Cartridge IVPUSH 11/21/23 18:38 4 mg ONCE ONE Administration Protocol Ondansetron HCl 4 mg 11/21/23 18:21 11/21/23 18:58 Ondansetron Hcl 4 Mg/2 Ml Vial IVPUSH 11/21/23 18:22 4 mg ONCE ONE Administration Medical Decision Making Medical Decision Making MDM Narrative: 58 yo male with PMH of anemia, colitis, opiate use disorder, UTI, adrenal insuffiency, DM, chronic pain syndrome, non-small cell lung cancer stage 4 , radiation induced esophagitis, fibromyalgia, migraines who presents to the ER via EMS for evaluation of diffuse cramping abdominal pain, nausea, vomiting, diarrhea for the last 5 days as well as low potassium found on labwork done at home today. She was given oral potassium by the provider at her home. She was able to keep it down without any further vomiting. She continues to describe epigastric abdominal pain. She has tenderness on examination. Lab work is revealing for a white blood cell count of 13.5. She has a stable normocytic anemia. Her potassium has normalized. She has mild hyponatremia and hyperglycemia without any anion gap. No evidence of DKA. Patient was given IV morphine with no improvement in her pain, she was requesting IV Dilaudid which was given x1. She was tolerating p.o. and drinking fluids despite being advised not to do so while we are waiting CT scan. CT scan was performed and we are awaiting results. IV insulin and IV fluids were given for hyperglycemia. Close Abdomen/Pelvis CT (Signed) Tahira Carrera - 11/21/23 Abdomen/Pelvis CT (Signed) Nasima Johnson - 10/11/23 Barium Swallow X-Ray (Signed) ValentinoCandido (+) - 10/07/23 Abdomen/Pelvis CT (Signed) Adebayo,Ingris - 05/12/[address] (Signed) Adebayo,Ingris - 05/12/[address] (Signed) Gilmar Porter - 05/12/[address] (Signed) Paige Esqueda - 05/12/[address] (Signed) Gilmar Porter - 05/12/23 Chest X-Ray (Signed) Adebayo,Ingris - 02/16/[address] (Signed) Tony Kahn - 02/16/[address] (Signed) Savage Rosado - 08/29/[address] (Signed) Ingris Fiore - 01/29/[address] (Signed) Jerald Marks - 07/21/[address] (Signed) Jerald Marks - 07/21/[address] (Signed) Jerald Marks - 07/21/[address] (Signed) Viry Montelongo - 05/09/21 Thyroid Ultrasound (Signed) Myla Lopez - 03/22/21 Abdomen/Pelvis CT (Signed) Xochitl Hicks - 02/10/[address] (Signed) Tanvir Brooks - 02/09/[address] (Signed) Viry Montelongo - 01/31/[address] (Signed) Viry Montelongo - 01/31/21 Chest X-Ray (Signed) Gilmar Barrientos - 12/31/20 Chest X-Ray (Signed) Asaf Mccoy - 07/21/20 Abdomen/Pelvis CT (Signed) Stephon Corey - 07/20/20 KUB X-Ray (Signed) Carroll Looney - 07/20/20 KUB X-Ray (Signed) Naun Brooksnal - 07/19/20 Abdomen/Pelvis CT (Signed) Ingris Fiore - 07/19/20 Abdomen/Pelvis CT (Cancelled) 07/19/20 Upper GI Series (Signed) Cecilia,Tanvir - 07/13/[address] (Signed) Karl Vicente - 05/29/20 Abdomen/Pelvis CT (Signed) Neymar Lopez - 05/28/20 Venous Duplex (Signed) Tanvir Brooks - 05/25/20 Chest X-Ray (Signed) Tanvir Brooks - 05/25/[address] (Signed) Ingris Fiore - 04/15/[address] (Signed) Adebayo,Ingris - 04/15/20 Chest X-Ray (Signed) Adebayo,Ingris - 04/01/[address] (Signed) Adebayo,Ingris - 04/01/[address] (Signed) Adebayo,Ingris - 04/01/20 Abdomen/Pelvis CT (Signed) Adebayo,Ingris - 04/01/20 Chest X-Ray (Signed) Fortunato Olivo - 12/22/[address] (Signed) DannieAgapito spears - 12/17/19 Oncology Outside Imaging Reports 07/24/17 Launch?Image [address] [address] [address] Scan Report Signed Patient: Desire Azar MR#: [id number] : 1965 Acct:[id number] Age/Sex: 58 / F ADM Date: 11/21/23 Loc: HO.ED Attending Dr: Ordering Physician: Julisa Hamilton Date of Service: 11/21/23 Procedure(s): CT abdomen pelvis w IV con Accession Number(s): [id number] cc: LAILA AHUJA MD; Julisa Hamilton~ EXAMINATION: CT ABDOMEN AND PELVIS WITH CONTRAST CLINICAL INFORMATION: Severe pain, nausea vomiting diarrhea COMPARISON: 10/11/2023 TECHNIQUE: Multidetector volumetric images were obtained from the superior aspect of the liver through the pubic symphysis following administration 85 mL of Omnipaque 350 intravenous contrast. Sagittal and coronal reformatted images were obtained on the technologist's workstation. Oral contrast: No This CT examination was performed using dose optimization techniques as appropriate, variously including the following: *Automated exposure control *Adjustment of mA and/or kV according to patient size (this includes techniques or standardized protocols for targeted exams where dose is matched to indication/reason for exam; i.e. extremities or head) *Use of iterative reconstruction technique DLP: 364 mGy-cm FINDINGS: LUNG BASES: Unremarkable. ABDOMINAL AND PELVIC WALL: Unremarkable. LIVER AND BILIARY TREE: Hepatic steatosis. GALLBLADDER: Status post cholecystectomy. PANCREAS: Unremarkable. SPLEEN: Unremarkable. ADRENAL GLANDS: Unremarkable. KIDNEYS AND URETERS: Unremarkable. GASTROINTESTINAL TRACT: Thickening and hyperemia of the terminal ileum with moderate volume fluid in the pelvis. There is mesenteric edema and interloop fluid with mucosal hyperenhancement.. The appendix is mildly thickened with fluid surrounding the tip with mild hyperemia (4:415). VASCULAR: Aortic atherosclerotic calcifications, no aneurysmal dialation. LYMPH NODES/PERITONEUM: No lymphadenopathy. FREE FLUID: None. BLADDER: Unremarkable. PELVIC VISCERA: Unremarkable. OSSEOUS STRUCTURES: Unremarkable. CT/CT abdomen pelvis w IV con IMPRESSION: * Thickening and hyperemia of the distal ileum with moderate volume fluid in the pelvis. There is mesenteric edema and interloop fluid with mucosal hyperenhancement. These findings are favored to reflect infectious or inflammatory enteritis. * The appendix is mildly thickened with fluid surrounding the tip with mild hyperemia. This may reflect acute appendicitis versus reactive inflammation secondary to adjacent enteritis. * Hepatic steatosis. . Electronically signed by: Tahira Carrera MD 11/21/2023 10:48 PM EDT RP Patient lower abdominal pain with nausea vomiting and diarrhea noted to have thickening and hyperemia of distal ileum also appendix noted to be slightly thickened with fluid surrounding the tip with mild hyperemia possible appendicitis. Patient is ambulatory not in significant discomfort case discussed with Dr. Moon surgeon does not think the patient has appendicitis but would like to observe under medical service because of abnormal CT scan findings Differential Diagnosis Differential Diagnoses: The differential diagnosis associated with the presentation includes SBO, esophagitis, gastroenteritis, perforation, PUD, pancreatitis, DKA, dehydration Admission/Observation Consideration of admission/observation: Escalation of care including admission/observation considered Lab Data MDM Lab Attestation statement: I reviewed the patient's lab results. Leukocytosis, hyperglycemia without anion gap 11/21/23 19:09 11/21/23 19:09 Labs: Lab Results 11/21/23 11/21/23 11/21/23 Range/Units 18:02 19:09 19:20 WBC 13.5 H (4.8-10.8) X10*3/uL RBC 3.83 L D (4.20-5.50) X10*6/uL Hgb 11.6 L (12.0-16.0) g/dl Hct 33.2 L (37.0-47.0) % MCV 86.7 (80.0-98.0) fL MCH 30.3 (27.0-33.0) pg MCHC 34.9 (31.0-35.0) g/dl RDW 12.7 (11.0-16.0) % Plt Count 191 D (160-400) X10*3/uL MPV 12.2 (9.4-12.3) fL Immature Gran % (Auto) 0.3 (0.0-0.4) % Neut % (Auto) 63.6 (45-73) % Lymph % (Auto) 29.0 (20-40) % [place] % (Auto) 5.7 (2-11) % Eos % (Auto) 0.8 (0-4) % Baso % (Auto) 0.6 (0-2) % Lymph # (Auto) 3.9 (1.2-4.9) X10*3/uL [place] # (Auto) 0.8 (0.1-1.2) X10*3/uL Eos # (Auto) 0.1 (0.0-0.4) X10*3/uL Baso # (Auto) 0.1 (0.0-0.2) X10*3/uL Abs Immat Gran (auto) 0.04 H (0.00-0.03) X10*3/uL Absolute Neuts (auto) 8.6 H (2.0-8.3) x10*3/uL Absolute Nucleated RBC 0.000 (0.0-0.012) X10*3/uL Nucleated RBC % (auto) 0.0 (0.0-0.2) /100WBC VBG pH 7.53 H (7.32-7.43) VBG pCO2 35 mmHg VBG pO2 84 mmHg VBG HCO3 30 H (22-26) mmol/L VBG O2 Saturation 99.0 % VBG Base Excess 7.4 mmol/L Sodium 133 L (135-145) mmol/L Potassium 3.8 D (3.3-5.1) mmol/L Chloride 96 (96-108) mmol/L Carbon Dioxide 26 (22-29) mmol/L Anion Gap 15 (12-20) BUN 11 (9-16) mg/dL Creatinine 1.07 (0.5-1.4) mg/dL Estim Creat Clear Calc 47.3 Estimated GFR 53 POC Glucose 442 H* (60-115) mg/dL Random Glucose 443 H* (60-115) mg/dL Estimat Average Glucose 280 mg/dL Hemoglobin A1c % 11.4 H (<6.0) % Calcium 9.0 D (8.4-10.2) mg/dL Magnesium 1.7 (1.6-2.6) mg/dL Total Bilirubin 0.7 (0.0-1.0) mg/dL Direct Bilirubin 0.2 (0.0-0.5) mg/dL AST 8 (5-31) U/L ALT 5 (0-31) U/L Alkaline Phosphatase 73 (39-117) U/L Total Protein 5.5 L (6.5-8.0) g/dL Albumin 3.1 L (3.5-5.0) g/dL Lipase 9 (8-78) U/L 11/21/23 11/22/23 Range/Units 21:08 00:50 WBC (4.8-10.8) X10*3/uL RBC (4.20-5.50) X10*6/uL Hgb (12.0-16.0) g/dl Hct (37.0-47.0) % MCV (80.0-98.0) fL MCH (27.0-33.0) pg MCHC (31.0-35.0) g/dl RDW (11.0-16.0) % Plt Count (160-400) X10*3/uL MPV (9.4-12.3) fL Immature Gran % (Auto) (0.0-0.4) % Neut % (Auto) (45-73) % Lymph % (Auto) (20-40) % [place] % (Auto) (2-11) % Eos % (Auto) (0-4) % Baso % (Auto) (0-2) % Lymph # (Auto) (1.2-4.9) X10*3/uL [place] # (Auto) (0.1-1.2) X10*3/uL Eos # (Auto) (0.0-0.4) X10*3/uL Baso # (Auto) (0.0-0.2) X10*3/uL Abs Immat Gran (auto) (0.00-0.03) X10*3/uL Absolute Neuts (auto) (2.0-8.3) x10*3/uL Absolute Nucleated RBC (0.0-0.012) X10*3/uL Nucleated RBC % (auto) (0.0-0.2) /100WBC VBG pH (7.32-7.43) VBG pCO2 mmHg VBG pO2 mmHg VBG HCO3 (22-26) mmol/L VBG O2 Saturation % VBG Base Excess mmol/L Sodium (135-145) mmol/L Potassium (3.3-5.1) mmol/L Chloride (96-108) mmol/L Carbon Dioxide (22-29) mmol/L Anion Gap (12-20) BUN (9-16) mg/dL Creatinine (0.5-1.4) mg/dL Estim Creat Clear Calc Estimated GFR POC Glucose 233 H 199 H (60-115) mg/dL Random Glucose (60-115) mg/dL Estimat Average Glucose mg/dL Hemoglobin A1c % (<6.0) % Calcium (8.4-10.2) mg/dL Magnesium (1.6-2.6) mg/dL Total Bilirubin (0.0-1.0) mg/dL Direct Bilirubin (0.0-0.5) mg/dL AST (5-31) U/L ALT (0-31) U/L Alkaline Phosphatase (39-117) U/L Total Protein (6.5-8.0) g/dL Albumin (3.5-5.0) g/dL Lipase (8-78) U/L Independent Interpretation I performed an independent interpretation of an: CT Scan Interpretation: CT scan without any obvious dilatation or air-fluid levels of the colon, no free air Independent Historian Clinical information obtained from an independent historian. History obtained from or confirmed by: EMS External Record Review External record reviewed: Outpatient record, Prior outpatient labs and Prior outpatient radiology Prescription Management I considered prescription management with: Pain Medication and Antibiotic Chronic Conditions Patient?s care impacted by: Diabetes and Other (Chronic pain syndrome) Critical Care Time Critical Care Time Critical Care Time: Yes Total Critical Care Time: 44 Attestation: I have personally provided critical care time exclusive of time spent on separately billable procedures. Time includes review of lab data, radiology results, bedside reassessment of hemodynamics and mental status after multiple doses of IV narcotics and monitoring for potential decompensation. Intervention performed as documented. Discharge Plan Discharge Clinical Impression: Hyperglycemia, Hypokalemia, Enteritis, Acute appendicitis Vomiting Qualifiers: Vomiting type: unspecified Nausea presence: with nausea Qualified Code(s): R11.2 - Nausea with vomiting, unspecified Patient Disposition: Admitted As Inpatient Interventions: Admission Worksheet (ED) Last Done: 11/22/23 02:27 Discharge Date/Time: 11/22/23 04:10
[2023-11-21] MEDS: Lactated Ringers 1,000 ML 999 ML IV (18:57)
[2023-11-21] MEDS: ondansetron HCL 4 MG/2 ML VIAL IVPUSH (18:58)
[2023-11-21] MEDS: Morphine Sulfate 4 MG/ML CARTRIDGE IVPUSH (18:58)
[2023-11-21 19:19] LABS: MANUAL DIFF FLAG NO
[2023-11-21 19:24] LABS: Venous Blood Gas Refer to POC result
[2023-11-21 19:24] LABS: VBG Base Excess 7.4 mmol/L; VBG HCO3 30 mmol/L (22-26); VBG pCO2 35 mmHg; VBG pH 7.53 (7.32-7.43); VBG pO2 84 mmHg
[2023-11-21 19:27] LABS: Basophils Absolute Auto 0.1 X10*3/uL (0.0-0.2); Basophils Percent Auto 0.6 % (0-2); Eosinophils Absolute Auto 0.1 X10*3/uL (0.0-0.4); Eosinophils Percent Auto 0.8 % (0-4); Hematocrit 33.2 % (37.0-47.0); Hemoglobin 11.6 g/dl (12.0-16.0); Imm Gran Abs Auto 0.04 X10*3/uL (0.00-0.03); Imm Gran Pct Auto 0.3 % (0.0-0.4); Lymphocytes Absolute Auto 3.9 X10*3/uL (1.2-4.9); Mean Corpuscular HGB Conc 34.9 g/dl (31.0-35.0); Mean Corpuscular Hemoglobin 30.3 pg (27.0-33.0); Mean Corpuscular Volume 86.7 fL (80.0-98.0); Mean Platelet Volume 12.2 fL (9.4-12.3); Monocytes Absolute Auto 0.8 X10*3/uL (0.1-1.2); Monocytes Percent Auto 5.7 % (2-11); Neutrophils Absolute Auto 8.6 x10*3/uL (2.0-8.3); Neutrophils Percent Auto 63.6 % (45-73); Platelet Count 191 X10*3/uL (160-400); Red Blood Count 3.83 X10*6/uL (4.20-5.50); Red Cell Distribution Width 12.7 % (11.0-16.0); White Blood Count 13.5 X10*3/uL (4.8-10.8)
[2023-11-21 19:42] LABS: Lipase 9 U/L (8-78)
[2023-11-21 19:58] LABS: Alanine Aminotransferase 5 U/L (0-31); Albumin Level 3.1 g/dL (3.5-5.0); Alkaline Phosphatase 73 U/L (39-117); Anion Gap 15 (12-20); Aspartate Amino Transferase 8 U/L (5-31); Bilirubin Direct 0.2 mg/dL (0.0-0.5); Bilirubin Total 0.7 mg/dL (0.0-1.0); Blood Urea Nitrogen 11 mg/dL (9-16); Carbon Dioxide 26 mmol/L (22-29); Chloride 96 mmol/L (96-108); Creatinine Clr Calc Pharmacy 47.3; Estimated Glomerular Filt Rate 53; Glucose Random 443 mg/dL (60-115); Magnesium 1.7 mg/dL (1.6-2.6); Potassium 3.8 mmol/L (3.3-5.1); Sodium 133 mmol/L (135-145); Total Protein 5.5 g/dL (6.5-8.0)
[2023-11-21 20:00] VITALS: BP 132/84; PULSE 85; RESP 18; O2SAT 99
[2023-11-21 20:08] VITALS: RESP 16
[2023-11-21] MEDS: HYDROmorphone HCl 1 MG/ML SYRINGE IVPUSH (20:08)
[2023-11-21] MEDS: iohexoL 350 MG/ML 100 ML INFUS..BTL 85 ML IV (20:29)
[2023-11-21] MEDS: Insulin Regular, Human 100 UNIT/ML 10 ML VIAL IVPUSH (20:30)
[2023-11-21 21:12] LABS: Glucose, Whole Blood 233 mg/dL (60-115)
[2023-11-21 22:00] VITALS: PULSE 87; RESP 17
[2023-11-22] VITALS (11 sets, daily range): BP systolic 82–155; BP diastolic 45–79; PULSE 56–88; RESP 16–18; TEMP 36.2–37; O2SAT 96–100; BMI 24.1
--- NOTE | 2023-11-22 00:49 | PM.IMHP ---
History of Present Illness Date of Service: 11/22/23 Chief Complaint: Nausea, vomitting and abdominal pain A 58-year-old female with a history of lung cancer (status post chemotherapy), radiation-induced esophagitis, anxiety, migraine headaches, fibromyalgia, and diabetes, among other conditions, presents with abdominal pain, nausea, and vomiting for nearly 2 to 3 weeks. She reports 10/10, cramping abdominal pain, subjective fever, no blood in the stool, and no recent travel. 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 A CT of the abdomen and pelvis today showed findings consistent with infectious or inflammatory enteritis and possible appendicitis. Similar findings were seen on a CT from 10/11/23. WBC is elevated at 15.3. The CT findings were discussed with surgery, and acute appendicitis was not appreciated. Additionally, she was found to have a glucose level of 443, and she reports glucose readings in the 500 range at home. There is no acidosis. She was given IV Zosyn in the ED. Review of Systems Review of Systems: Gen: no fever Resp: no sob, no cough CV: no chest, no QUILES, no leg edema GI: No n/v, no abd pain Neuro: No confusion Yes all other systems are reviewed and are negative [facility] Medical History Pulmonary nodule Diabetes type 2, uncontrolled Colitis Opioid use disorder Arthritis Fibromyalgia History of lung cancer Multinodular goiter Adrenal insufficiency due to cancer therapy Newly diagnosed diabetes Subclinical hyperthyroidism Pancreatitis (~02/2018) Radiation-induced esophagitis Hypothyroidism Depression Opioid abuse Asthma COPD (chronic obstructive pulmonary disease) Aftercare following left shoulder joint replacement surgery Non-small cell carcinoma of left lung, stage 4 Family History Father Pancreatic cancer Mother Diabetes Skin cancer Rheumatoid arthritis Brother Diabetes Sister Diabetes Other History of thyroid disorder Surgical History History of esophagogastroduodenoscopy (EGD) (~09/04/19) History of cholecystectomy (~12/02/08) History of endometrial ablation (~07/25/06) History of esophageal dilatation (~02/24/18) Hx of shoulder surgery (~2015) Hx of blepharoplasty (~2019) History of Social History Household Members: Spouse Housing: Apartment Do you presently have visiting nurse or other home services: Yes ([employer]) Alcohol intake: current Alcohol intake frequency: a few times a week Alcohol type: wine Comment: refuses bed alarm Patient Tobacco Use Status: Current someday Tobacco user Tobacco use type: Cigarette Cigarettes Per Day: 4 Years Smoked: 30 Second Hand Smoke Exposure: No Advance Directives: Yes Advance Directives on File: Yes Advance Directives Date on File: 05/12/20 service: No Current occupational status: unemployed and disabled Meds Allergies Allergy/AdvReac Type Severity Reaction Status Date / Time acetaminophen [Tylenol] AdvReac Unknown Abdominal Verified 11/30/23 02:38 Pain ibuprofen AdvReac Unknown Abdominal Verified 11/30/23 02:38 Pain Active Medications: Current Medications Piperacillin Sod/Tazobactam (Sod 3.375 gm/ Sodium Chloride) 50 mls @ 100 mls/hr IV ONCE ONE Stop: 11/22/23 01:08 Home Medications ?Medication ?Instructions ?Recorded ?Confirmed ?Last Taken ?Type clonidine HCl 0.1 mg tablet 0.1 mg PO TID 12/17/19 11/22/23 11/21/23 08:00 History zolpidem 10 mg tablet 10 mg PO BEDTIME Sleep 03/08/20 11/22/23 11/21/23 08:00 History biotin 5,000 mcg sublingual tablet 5,000 mcg sublingual DAILY 02/10/21 11/22/23 02/08/21 History cholecalciferol (vitamin D3) 25 25 mcg PO DAILY 02/10/21 11/22/23 11/20/23 History mcg (1,000 unit) tablet (Vitamin D3) sumatriptan succinate 100 mg tablet 100 mg PO DAILY MRX1 PRN migraine 11/01/21 11/22/23 Unknown History Xanax 1 mg PO TID 11/22/23 11/22/23 11/21/23 08:00 History fluoxetine 40 mg capsule 80 mg PO DAILY@1500 depressive 11/22/23 11/22/23 11/20/23 History disorder hydroxyzine HCl 50 mg tablet 50 mg PO BID anxiety 11/22/23 11/22/23 11/20/23 History omeprazole 20 mg capsule,delayed 20 mg PO QAM 11/22/23 11/22/23 Unknown History release scopolamine base 1 mg over 3 days 1 patch transdermal Q3D PRN Nausea 11/22/23 11/22/23 11/20/23 History transdermal patch Physical Exam Vital Signs and Narrative: Vital Signs: Last Vital Signs Temp 98.6 F 11/22/23 00:22 Pulse 77 11/22/23 00:22 Resp 16 11/22/23 00:22 BP 128/79 11/22/23 00:22 Pulse Ox 97 11/22/23 00:22 O2 Del Method Room Air 11/22/23 00:22 BMI result Body Mass Index 24.0 Const: Other: Constitutional: Alert, in no distress, Mental Status: Oriented to person, place and time. Eyes: Pupils are equal, round and reactive to light. Ear, Nose and Throat: Oropharynx clear, mucous membranes moist. Ears and nose without eformities. Trachea midline. Respiratory: Clear to auscultation. No wheezing, rales or rhonchi. Cardiovascular: S1 S2 regular. No murmurs, rubs or gallops. Gastrointestinal: Abdomen soft, non-specific tenderness, non-distended. Normal bowel sounds.? Neurologic: Cranial nerves II-XII grossly intact. No focal neurological deficits. Moves all extremities spontaneously.? Skin: No rashes or lesions.? Musculoskeletal: No cyanosis or clubbing. Psychiatric: Normal mood and affect? Results Labs 11/24/23 08:09 11/24/23 08:09 Labs: Laboratory Results - last 24 hr 11/21/23 11/21/23 11/21/23 18:02 19:09 19:20 MCV 86.7 MCH 30.3 MCHC 34.9 RDW 12.7 Plt Count 191 D MPV 12.2 Immature Gran % (Auto) 0.3 Neut % (Auto) 63.6 Lymph % (Auto) 29.0 [place] % (Auto) 5.7 Eos % (Auto) 0.8 Baso % (Auto) 0.6 Lymph # (Auto) 3.9 [place] # (Auto) 0.8 Eos # (Auto) 0.1 Baso # (Auto) 0.1 Abs Immat Gran (auto) 0.04 H Absolute Neuts (auto) 8.6 H Absolute Nucleated RBC 0.000 Nucleated RBC % (auto) 0.0 VBG pH 7.53 H VBG pCO2 35 VBG pO2 84 VBG HCO3 30 H VBG O2 Saturation 99.0 VBG Base Excess 7.4 Anion Gap 15 Estim Creat Clear Calc 47.3 Estimated GFR 53 POC Glucose 442 H* Random Glucose 443 H* Calcium 9.0 D Magnesium 1.7 Total Bilirubin 0.7 Direct Bilirubin 0.2 AST 8 ALT 5 Alkaline Phosphatase 73 Total Protein 5.5 L Albumin 3.1 L Lipase 9 11/21/23 21:08 MCV MCH MCHC RDW Plt Count MPV Immature Gran % (Auto) Neut % (Auto) Lymph % (Auto) [place] % (Auto) Eos % (Auto) Baso % (Auto) Lymph # (Auto) [place] # (Auto) Eos # (Auto) Baso # (Auto) Abs Immat Gran (auto) Absolute Neuts (auto) Absolute Nucleated RBC Nucleated RBC % (auto) VBG pH VBG pCO2 VBG pO2 VBG HCO3 VBG O2 Saturation VBG Base Excess Anion Gap Estim Creat Clear Calc Estimated GFR POC Glucose 233 H Random Glucose Calcium Magnesium Total Bilirubin Direct Bilirubin AST ALT Alkaline Phosphatase Total Protein Albumin Lipase Imaging Radiologist's Impressions: Impressions Abdomen/Pelvis CT 11/21/23 20:15 IMPRESSION: * Thickening and hyperemia of the distal ileum with moderate volume fluid in the pelvis. There is mesenteric edema and interloop fluid with mucosal hyperenhancement. These findings are favored to reflect infectious or inflammatory enteritis. * The appendix is mildly thickened with fluid surrounding the tip with mild hyperemia. This may reflect acute appendicitis versus reactive inflammation secondary to adjacent enteritis. * Hepatic steatosis. . Electronically signed by: Tahira Carrera MD 11/21/2023 10:48 PM EDT Assessment and Plan (1) Cat bite: Qualifiers: Encounter type: subsequent encounter Qualified Code(s): W55.01XD - Bitten by cat, subsequent encounter Status: Acute Plan 58/f year old female with a history of lung cancer chemotherapy/radiation, radiation induced esophagitis, anxiety, fibromyalgia/chronic pain, seizure d/o, diabetes here with abd pain, n/v and enterocolitis and / appendicitis Inflamatory vs infectious Eterocolitis -IV fluid -Zosyn -GI consult -check cdif and stool panel -NPO, when clear by surgery start liquid diet and advance ? Appendicitis -surgery consult in the [facility] radiation esophagitis -PPI DM with Hyperglycmeia, given IV insulin 5, sugar now 199. She has not been taking medications or checking her sugars for months stating that after chemo she was told she didn't need it -check A1 C -add slding scale and may need basal insulin h/o seizure d/o -continue Keppra Mood d/o -resume home meds h/o migraine headach -sumatriptin daily PRN or fiorocet PRN Hyponatremia-Pseudohyponatremia d/t high glucose, repeat in am DVT prophylaxis: lovenox, Full code admit for at least 2 midnights for IV Abx for enterocolitis and possible appendicitis Quality Stroke Does the patient have a stroke diagnosis?: No VTE Prior VTE?: No VTE Risk Level:: Medical - moderate - high VTE Device Contraindication: Treatment Not Indicated VTE Drug Contraindication: N/A - Med Ordered
[2023-11-22 01:02] LABS: Glucose, Whole Blood 199 mg/dL (60-115)
[2023-11-22] MEDS: Piperacillin Sodium/Tazobactam 3.375 GM in 0.9 % Sodium Chloride 50 ML IV ×5 (01:22→23:42)
--- NOTE | 2023-11-22 01:23 | MHC.EDTECH ---
This pct assumed care of patient at 2300 ,vitals taken ,patient was change into hospital attire ,Patient belongings list done ,Patient at bedside .
[2023-11-22] MEDS: Lactated Ringers 1,000 ML 125 ML IVCONT (02:10)
[2023-11-22] MEDS: HYDROmorphone HCl 0.5 MG/0.5 ML SYRINGE SUBCUT ×2 (02:10→06:40)
[2023-11-22 02:42] LABS: Appearance Urine Clear; Color Urine Dark Yellow; Glucose Urine UA 250 mg/dL (Negative); Leukocyte Esterase Urine Negative (Negative); Nitrite Urine Negative (Negative); Specific Gravity - Urine >= 1.030 (1.005-1.025); UMIC TRIGGER UACC YES; Urine Blood Negative (Negative); Urine Ketones Trace mg/dL (Negative); Urine Protein 100 (2+) mg/dL (Neg-Trace)
[2023-11-22 03:22] LABS: Bacteria Urine Trace (None Seen); RBC Urine 0-2 /HPF (0-2); WBC Urine 0-5 /HPF (0-5)
[2023-11-22] MEDS: ALPRAZolam 0.5 MG TABLET 1 MG PO ×3 (05:02→22:14)
[2023-11-22] MEDS: Flu Vacc TS2024-25(6mos up)/PF 0.5 ML SYRINGE IM (05:02)
[2023-11-22 05:24] LABS: Estimated Average Glucose 280 mg/dL; Hemoglobin A1c % 11.4 % (<6.0)
[2023-11-22 06:55] LABS: Alanine Aminotransferase 6 U/L (0-31); Albumin Level 3.6 g/dL (3.5-5.0); Alkaline Phosphatase 77 U/L (39-117); Anion Gap 11 (12-20); Aspartate Amino Transferase 9 U/L (5-31); Bilirubin Total 0.8 mg/dL (0.0-1.0); Blood Urea Nitrogen 12 mg/dL (9-16); Carbon Dioxide 29 mmol/L (22-29); Chloride 96 mmol/L (96-108); Creatinine Clr Calc Pharmacy 49.2; Estimated Glomerular Filt Rate 55; Glucose Random 275 mg/dL (60-115); Potassium 3.1 mmol/L (3.3-5.1); Sodium 133 mmol/L (135-145); Total Protein 6.2 g/dL (6.5-8.0)
[2023-11-22 08:04] LABS: Glucose, Whole Blood 303 mg/dL (60-115)
[2023-11-22] MEDS: Enoxaparin Sodium 40 MG/0.4 ML SYRINGE SUBCUT (08:11)
[2023-11-22] MEDS: levETIRAcetam 500 MG TABLET PO ×2 (08:11→22:13)
[2023-11-22] MEDS: Potassium Chloride Packet 20 MEQ PACKET 40 MEQ PO (08:11)
[2023-11-22] MEDS: Insulin Lispro 100 UNIT/ML 3 ML VIAL SUBCUT ×3 (08:12→20:36)
--- NOTE | 2023-11-22 08:13 | PM.CNGS ---
History of Present Illness Consult details Consult date: 11/22/23 Narrative: Patient is a 58-year-old female with a plethora of comorbidities who presented here with roughly three-day history of crampy abdominal pain with profuse diarrhea. Her loose stools have been so numerous that she is unable to given precise number of how many bowel movements she has had. She has never had this before. She has no history of inflammatory bowel disease. Has not had any recent antibiotic therapy. She does not recall any sick contents or any unusual diet. She had a similar episode several months ago which eventually resolved spontaneously. Chart was reviewed and patient evaluated [facility] Past Medical History Medical History Pulmonary nodule Diabetes type 2, uncontrolled Colitis Opioid use disorder Arthritis Fibromyalgia History of lung cancer Multinodular goiter Adrenal insufficiency due to cancer therapy Newly diagnosed diabetes Subclinical hyperthyroidism Pancreatitis (~02/2018) Radiation-induced esophagitis Hypothyroidism Depression Opioid abuse Asthma COPD (chronic obstructive pulmonary disease) Aftercare following left shoulder joint replacement surgery Non-small cell carcinoma of left lung, stage 4 Family History Family History Father Pancreatic cancer Mother Diabetes Skin cancer Rheumatoid arthritis Brother Diabetes Sister Diabetes Other History of thyroid disorder Surgical History Surgical History History of esophagogastroduodenoscopy (EGD) (~09/04/19) History of cholecystectomy (~12/02/08) History of endometrial ablation (~07/25/06) History of esophageal dilatation (~02/24/18) Hx of shoulder surgery (~2014) Hx of blepharoplasty (~2018) History of Social History Social History Household Members: Spouse Housing: Apartment Do you presently have visiting nurse or other home services: Yes ([employer]) Alcohol intake: current Alcohol intake frequency: a few times a week Alcohol type: wine Comment: refuses bed alarm Patient Tobacco Use Status: Current someday Tobacco user Tobacco use type: Cigarette Cigarettes Per Day: 4 Years Smoked: 30 Smoked in Last 30 Days: Yes Patient Interested in Nicotine Replacement: Yes Patient Given Instructions on How to Stop Smoking: No Second Hand Smoke Exposure: No Use of substances other than those prescribed or required for medical reasons: No Currently Displaying Signs/Symptoms of Drug Intoxication Withdrawal: No Have you been hit, kicked, punched, or otherwise hurt by someone within the past year? If so, by whom?: No Do you feel safe in your current relationship?: Yes Is there a partner from a previous relationship who is making you feel unsafe now?: No Are you made to feel afraid or neglected: No Advance Directives: Yes Advance Directives on File: Yes Advance Directives Date on File: 05/12/20 Do you have a plan to hurt others: No Plan Recently lost weight without trying: Yes How much weight loss: 24-33 pounds Eating poorly because of decreased appetite: Yes Nutrition screen score: 6 Nutrition Risks: Difficulty swallowing Patient : No : No Poor oral hygiene: No service: No Current occupational status: unemployed and disabled Meds Allergies Allergy/AdvReac Type Severity Reaction Status Date / Time acetaminophen [Tylenol] AdvReac Unknown Abdominal Verified 10/11/23 04:12 Pain ibuprofen AdvReac Unknown Abdominal Verified 11/21/23 18:28 Pain Active Medications: Current Medications Alprazolam (Alprazolam 0.5 Mg Tablet) 1 mg PO TID [facility] Last Admin: 11/22/23 05:02 Dose: 1 mg Calcium Carbonate (Calcium Carbonate 750 Mg Tab.Chew) 750 mg PO Q4H PRN PRN Reason: Heartburn Clonidine HCl (Clonidine Hcl 0.1 Mg Tablet) 0.1 mg PO TID SHABANA; Protocol Enoxaparin Sodium (Enoxaparin Sodium 40 Mg/0.4 Ml Syringe) 40 mg SUBCUT DAILY [facility] Glucose (Glucose Gel 15 Gm Gel..Gram.) 15 gm PO Q15M PRN; Protocol PRN Reason: per Hypoglycemia Standing Ord. Hydromorphone HCl (Hydromorphone Hcl 0.5 Mg/0.5 Ml Syringe) 0.5 mg SUBCUT Q4H PRN; Protocol PRN Reason: Pain, Severe (Pain Scale 7-10) Last Admin: 11/22/23 06:40 Dose: 0.5 mg Hydroxyzine HCl (Hydroxyzine Hcl 50 Mg Tablet) 50 mg PO Q8H PRN PRN Reason: Anxiety Dextrose (D10) 250 mls @ 750 mls/hr IV Q15M PRN; Protocol PRN Reason: per Hypoglycemia Standing Ord. Lactated Ringer's (Lr) 1,000 mls @ 125 mls/hr IVCONT .Q8H [facility] Last Admin: 11/22/23 02:10 Dose: 125 mls/hr Piperacillin Sod/Tazobactam (Sod 3.375 gm/ Sodium Chloride) 50 mls @ 100 mls/hr IV 0000,0600,1200,1800 [facility] Last Infusion: 11/22/23 07:14 Dose: Infused Insulin Human Lispro (Insulin Lispro 100 Unit/Ml 3 Ml Vial) 0 unit SUBCUT QIDACHS [facility]; Protocol Levetiracetam (Levetiracetam 500 Mg Tablet) 500 mg PO BID [facility] Magnesium Hydroxide (Milk Of Magnesia 30 Ml Oral.Susp) 30 ml PO DAILY PRN PRN Reason: Constipation Melatonin (Melatonin 3 Mg Tablet) 6 mg PO BEDTIME PRN PRN Reason: Insomnia Ondansetron HCl (Ondansetron Hcl 4 Mg/2 Ml Vial) 4 mg IVPUSH Q8H PRN PRN Reason: Nausea and Vomiting Sodium Chloride (0.9 % Sodium Chloride Flush 3 Ml Syringe) 3 ml IVFLUSH QSHIFT [facility] Zolpidem Tartrate (Zolpidem Tartrate 5 Mg Tablet) 10 mg PO BEDTIME PRN PRN Reason: Sleep Home Medications ?Medication ?Instructions ?Recorded ?Confirmed ?Last Taken ?Type clonidine HCl 0.1 mg tablet 0.1 mg PO TID 12/17/19 11/22/23 11/21/23 08:00 History hydroxyzine pamoate 50 mg capsule 50 mg PO Q8H PRN Anxiety 12/17/19 11/22/23 02/08/21 History zolpidem 10 mg tablet 10 mg PO BEDTIME PRN Sleep 03/08/20 11/22/23 11/21/23 08:00 History ascorbic acid (vitamin C) 500 mg 500 mg PO DAILY 02/10/21 11/30/22 02/08/21 History tablet (Vitamin C) biotin 5,000 mcg sublingual tablet 5,000 mcg sublingual DAILY 02/10/21 11/22/23 02/08/21 History cholecalciferol (vitamin D3) 25 25 mcg PO DAILY 02/10/21 11/30/22 02/08/21 History mcg (1,000 unit) tablet (Vitamin D3) magnesium 500 mg tablet 500 mg PO DAILY 03/24/21 11/30/22 Unknown History fluoxetine 40 mg PO DAILY 05/05/21 11/30/22 Unknown History sumatriptan succinate 50 mg tablet 100 mg PO DAILY PRN migraine 05/05/21 11/30/22 Unknown History headache sumatriptan succinate 100 mg tablet 100 mg PO BID PRN migraine 11/01/21 11/30/22 Unknown History Xanax 1 mg PO TID 11/22/23 11/22/23 11/21/23 08:00 History clonidine 11/22/23 11/21/23 08:00 History Physical Exam Vital Signs: Vital Signs: Last Vital Signs Temp 97.3 F 11/22/23 08:02 Pulse 56 11/22/23 08:02 Resp 18 11/22/23 08:02 BP 82/52 L 11/22/23 08:02 Pulse Ox 96 11/22/23 08:02 O2 Del Method Room Air 11/22/23 08:02 BMI result Body Mass Index 24.1 Const: Other: Patient no acute distress complaining of occasional crampy mid abdominal discomfort GI: Other: Abdomen is mildly corpulent, soft, benign. No evidence of any guarding, rebound, rigidity. Very mild periumbilical tenderness. Results Labs 11/21/23 19:09 11/22/23 05:41 Labs: Abnormal lab results 11/21/23 11/21/23 11/21/23 Range/Units 18:02 19:09 19:20 WBC 13.5 H (4.8-10.8) X10*3/uL RBC 3.83 L D (4.20-5.50) X10*6/uL Hgb 11.6 L (12.0-16.0) g/dl Hct 33.2 L (37.0-47.0) % Abs Immat Gran (auto) 0.04 H (0.00-0.03) X10*3/uL Absolute Neuts (auto) 8.6 H (2.0-8.3) x10*3/uL VBG pH 7.53 H (7.32-7.43) VBG HCO3 30 H (22-26) mmol/L Sodium 133 L (135-145) mmol/L Potassium (3.3-5.1) mmol/L Anion Gap (12-20) POC Glucose 442 H* (60-115) mg/dL Random Glucose 443 H* (60-115) mg/dL Hemoglobin A1c % 11.4 H (<6.0) % Total Protein 5.5 L (6.5-8.0) g/dL Albumin 3.1 L (3.5-5.0) g/dL Ur Specific [place] (1.005-1.025) Urine Protein (Neg-Trace) mg/dL Urine Glucose (UA) (Negative) mg/dL 11/21/23 11/22/23 11/22/23 Range/Units 21:08 00:50 02:35 WBC (4.8-10.8) X10*3/uL RBC (4.20-5.50) X10*6/uL Hgb (12.0-16.0) g/dl Hct (37.0-47.0) % Abs Immat Gran (auto) (0.00-0.03) X10*3/uL Absolute Neuts (auto) (2.0-8.3) x10*3/uL VBG pH (7.32-7.43) VBG HCO3 (22-26) mmol/L Sodium (135-145) mmol/L Potassium (3.3-5.1) mmol/L Anion Gap (12-20) POC Glucose 233 H 199 H (60-115) mg/dL Random Glucose (60-115) mg/dL Hemoglobin A1c % (<6.0) % Total Protein (6.5-8.0) g/dL Albumin (3.5-5.0) g/dL Ur Specific [place] >= 1.030 H (1.005-1.025) Urine Protein 100 (2+) H (Neg-Trace) mg/dL Urine Glucose (UA) 250 H (Negative) mg/dL 11/22/23 11/22/23 Range/Units 05:41 08:00 WBC (4.8-10.8) X10*3/uL RBC (4.20-5.50) X10*6/uL Hgb (12.0-16.0) g/dl Hct (37.0-47.0) % Abs Immat Gran (auto) (0.00-0.03) X10*3/uL Absolute Neuts (auto) (2.0-8.3) x10*3/uL VBG pH (7.32-7.43) VBG HCO3 (22-26) mmol/L Sodium 133 L (135-145) mmol/L Potassium 3.1 L (3.3-5.1) mmol/L Anion Gap 11 L (12-20) POC Glucose 303 H (60-115) mg/dL Random Glucose 275 H (60-115) mg/dL Hemoglobin A1c % (<6.0) % Total Protein 6.2 L (6.5-8.0) g/dL Albumin (3.5-5.0) g/dL Ur Specific [place] (1.005-1.025) Urine Protein (Neg-Trace) mg/dL Urine Glucose (UA) (Negative) mg/dL Short CBC 11/21/23 Range/Units 19:09 WBC 13.5 H (4.8-10.8) X10*3/uL Hgb 11.6 L (12.0-16.0) g/dl Hct 33.2 L (37.0-47.0) % Plt Count 191 D (160-400) X10*3/uL BMP 11/21/23 11/22/23 19:09 05:41 Sodium 133 L 133 L Potassium 3.8 D 3.1 L Chloride 96 96 Carbon Dioxide 26 29 BUN 11 12 Creatinine 1.07 1.03 Calcium 9.0 D 9.0 Liver Function 11/21/23 11/22/23 Range/Units 19:09 05:41 Total Bilirubin 0.7 0.8 (0.0-1.0) mg/dL Direct Bilirubin 0.2 (0.0-0.5) mg/dL AST 8 9 (5-31) U/L ALT 5 6 (0-31) U/L Alkaline Phosphatase 73 77 (39-117) U/L Albumin 3.1 L 3.6 (3.5-5.0) g/dL Urine 11/22/23 Range/Units 02:35 Urine Color Dark Yellow Urine Appearance Clear Urine pH 6.0 (5.0-9.0) Ur Specific [place] >= 1.030 H (1.005-1.025) Urine Protein 100 (2+) H (Neg-Trace) mg/dL Urine Glucose (UA) 250 H (Negative) mg/dL All other labs normal. Assessment and Plan (1) Enteritis: Status: Acute Plan Patient and the patient's history, physical findings, and CT scan results are consistent with a gastroenteritis/food poisoning, GI bug. No evidence of acute appendicitis clinically. At present, no acute surgical issues. Continue conservative therapy and restorative measures. We will follow up p.r.n. Procedures Date of Service Date of Service: 11/22/23
--- NOTE | 2023-11-22 09:04 | PHA.MEDREC ---
Pharmacy Consult ? Medication Reconciliation Pharmacy has reviewed the medication reconciliation completed by nursing. Patient is adamant that she takes Keppra 500 mg BID, however medication last filled March 17 2022. Patient reports taking hydroxyzine schedule BID. Patient taking fluoxetine however was missed in the original med rec. Patient report using scopolamine patched regular however not active claim history for medication therefore left as a prn medication. Patient was taking metformin, however she stopped it on her own because her sugar were good. Added omeprazole to med rec as well. Jerri Uriostegui, PharmD
--- NOTE | 2023-11-22 09:22 | MHC.CLN ---
NUTRITION CONSULT FOR 30# WEIGHT LOSS. REVIEW OF WEIGHT HX SHOWS SIGNIFICANT WEIGHT GAIN X 6 MONTHS, +13%. CURRENTLY NPO. REPORTED NAUSEA, VOMITING, ABDOMINAL PAIN X 2-3 WEEKS. WEIGHT LOSS LIKELY DURING ACTIVE GI SYMPTOMS. FOLLOW FOR DIET ADVANCEMENT AND CONSIDER NUTRITIONAL SUPPLEMENTS IF DESIRED BY PATIENT.
[2023-11-22] MEDS: Lactated Ringers 1,000 ML 999 ML IV ×2 (09:57→10:59)
--- NOTE | 2023-11-22 10:11 | PM.EVENT ---
Event Note Date of Service: 11/22/23 Event Note: Day Team follow up S Seen and examined; complaining of diffuse abdominal pain denies symptoms of low bp O vitals -- last documented; BP on the lower side NAD S1S2 Lungs CTA b/l abd - soft with diffuse tenderness without guarding; not increase RLQ TTP neuro - non-focal A/P 58 yo F with history of history of lung Ca s/p chemo/radiation who presents with abdominal pain CT showing inflammatory vs infectious enteritis and possible appendicitis seen by surg -- no surgical issues reported GI consult pending continue empiric antibiotics BP on the lower side -- will check labs including lactate; 1L LR bolus given -- pt asymptomatic; unlikely related to sepsis Time Spent With Patient Time: Total time managing care of this patient today ____ minutes.
[2023-11-22 10:38] LABS: Hematocrit 27.5 % (37.0-47.0); Hemoglobin 9.4 g/dl (12.0-16.0); Mean Corpuscular HGB Conc 34.2 g/dl (31.0-35.0); Mean Corpuscular Hemoglobin 30.3 pg (27.0-33.0); Mean Corpuscular Volume 88.7 fL (80.0-98.0); Mean Platelet Volume 11.7 fL (9.4-12.3); Platelet Count 134 X10*3/uL (160-400); Red Cell Distribution Width 12.4 % (11.0-16.0); White Blood Count 8.1 X10*3/uL (4.8-10.8)
[2023-11-22 10:50] LABS: Lactic Acid 2.7 mmol/L (0.5-2.0)
--- NOTE | 2023-11-22 11:17 | MHC.CM.PN ---
PT REPORTS SHE LIVES WITH HER AND HAS DAILY [employer] RE[employer] SERVICES SHE ALSO HAS AN RN CM FROM [facility] WHO CHECKS IN PERIODICALLY PT USES A CANE TO AMBULATE AT BASELINE HCP ON FILE PCP: LAILA AHUJA IMM DELIVERED DCP: HOME RESUME [employer] FAMILY [facility]SP[facility]
[2023-11-22 11:42] LABS: Glucose, Whole Blood 40 mg/dL (60-115)
[2023-11-22 12:16] LABS: Glucose, Whole Blood 88 mg/dL (60-115)
[2023-11-22 12:32] LABS: Reflex Lactate? Lactic Acid Added
[2023-11-22] MEDS: Dextrose 5 % and 0.9 % NaCl 1,000 ML 100 ML IVCONT (12:46)
[2023-11-22] MEDS: HYDROmorphone HCl 0.5 MG/0.5 ML SYRINGE IV ×3 (12:56→22:22)
[2023-11-22 13:07] LABS: Estimated Average Glucose 278 mg/dL; Hemoglobin A1c % 11.3 % (<6.0)
[2023-11-22 13:16] LABS: ~Lactic Acid-LAB USE ONLY 2.7 mmol/L (0.5-2.0)
[2023-11-22 15:02] LABS: Reflex Lactate? 2 Y
[2023-11-22 16:20] LABS: Glucose, Whole Blood 359 mg/dL (60-115)
--- NOTE | 2023-11-22 16:59 | PM.EVENT ---
Event Note Date of Service: 11/22/23 Event Note: GI Consult-History from patient, , and EMR. Imp: Abnormal CT of GI tract in association with an acute onset of N/V and diarrhea with an already spontaneous partial resolution. This seems most c/w an acute gastroenteritis. Rec: Check stool specimens if they become available. Supportive care. Advance diet as tolerated. I don't think she needs any endoscopic workup at this time. Please advise me if I can be of any further assistance while she is here in the hospital. D/W patient and her . They are comfortable with this plan. Thanks Time Spent With Patient Time: Total time managing care of this patient today ____ minutes.
[2023-11-22] MEDS: Lactated Ringers 1,000 ML 100 ML IVCONT (17:04)
[2023-11-22 17:10] LABS: ~Lactic Acid-LAB USE ONLY 2.8 mmol/L (0.5-2.0)
[2023-11-22 19:51] LABS: Glucose, Whole Blood 310 mg/dL (60-115)
[2023-11-22] MEDS: cloNIDine HCL 0.1 MG TABLET PO (22:13)
[2023-11-22] MEDS: Zolpidem Tartrate 5 MG TABLET 10 MG PO (22:21)
--- NOTE | 2023-11-23 02:06 | CONS_ITS ---
DATE OF SERVICE: 11/22/2023 REASON FOR CONSULTATION: Vomiting, diarrhea, and abdominal cramping with associated abnormal CT scan of GI tract. HISTORY OF PRESENT ILLNESS: The patient is a 58-year-old female well known to me from previous office visits, procedures, and hospitalizations. The patient describes that she was in her usual state of health without any particular issues with diarrhea or abdominal pain up until 2 or 3 days ago. At that time, she describes the onset of vomiting, some nausea, abdominal cramping, and diarrhea. She did not notice any hematochezia nor melena. She did not have any definitive fevers. She denies any preceding history of travel, antibiotic use, nor ill contacts. Due to persistent symptoms, she came to the ER and was admitted. Since admission here, she does report that she has been feeling somewhat better and has not had any diarrhea or vomiting today. She still has some abdominal cramps, but was started on clear liquids. She has been afebrile here in the hospital. Her past history is notable for a colonoscopy in 2018 with the finding of some mild diffuse colitis, which was confirmed on biopsies. At that time, she was still receiving some chemotherapy and it was felt that it could have possibly been related to that. Her other history is also notable for a radiation induced proximal esophageal stricture that underwent multiple dilations with ultimately significant improvement in regard to her swallowing. She does report that she still has a sense of dysphagia and has a diet that is predominantly very soft or liquid. She did have a barium swallow that I ordered in September describing some slight narrowing at the mid esophagus, but without any sign of mass or ulceration. There was some esophageal dysmotility. A barium tablet was hung up at the level of the midesophagus. There was also some mild narrowing at the gastroesophageal junction noted on that study as well. MEDICATIONS: Her present medications include Xanax, Fioricet, vitamin D, clonidine, Lovenox, hydromorphone p.r.n., hydroxyzine p.r.n., Keppra, melatonin, milk of magnesia, omeprazole, Zofran p.r.n., Ambien p.r.n. 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 This was treated by with radiation and chemotherapy. Multiple upper endoscopies with balloon dilations for a proximal esophageal stricture from the radiation treatments to the mediastinum. The most recent upper endoscopy in July of 2020 was negative for any sign of esophageal stricture. The proximal esophagus did have some scarring and fibrotic changes consistent with previous radiation and radiation induced stricture, but there is no evidence of any significant stricture that needed dilation at the time of that endoscopy in 2020. She also has a history of colonoscopy in 2019 with the finding of a mild and diffuse colitis confirmed on biopsies, which was felt to possibly be related to her chemotherapy that she was receiving at that time. Other medical issues include tachycardia, COPD, depression, anxiety, panic attacks, urinary incontinence, seizures, and diabetes mellitus. There is no reported history of [place], stroke, nor renal disease. PAST SURGICAL HISTORY: Includes cholecystectomy, left shoulder, tonsillectomy, and dental surgery. FAMILY HISTORY: Father had pancreatic cancer. There is no family history of colorectal cancer. SOCIAL HISTORY: She still smokes cigarettes. She does not use any significant amounts of alcohol. REVIEW OF SYSTEMS: CONSTITUTIONAL: She has been feeling weak at home with the diminished appetite. CARDIAC: No chest pain. PULMONARY: No coughing or hemoptysis. GI: As above. GENITOURINARY: No dysuria. No hematuria. NEUROLOGIC: No headaches, but she does have a history of seizures. PHYSICAL EXAMINATION: GENERAL: The patient is alert, pleasant, comfortable appearing female in no distress. SKIN: Warm and dry. HEENT: Anicteric sclerae. CARDIAC: Normal S1, S2. ABDOMEN: Soft, nondistended, nontender without organomegaly or mass. EXTREMITIES: Without edema. DIAGNOSTIC DATA: She did have a CT scan of the abdomen and pelvis on admission yesterday describing some thickening of the terminal ileum with some fluid in the pelvis and associated mesenteric edema. The appendix also appeared to be mildly thickened with some fluid surrounding it. There was no lymphadenopathy. The radiologist felt this reflected a probable infectious or inflammatory acute enteritis. LABORATORY DATA: White blood cell count 8.1, hemoglobin 9.4, MCV 88, platelets 134,000. Hemoglobin yesterday was 11.6 with a white blood cell count of 13.5. Sodium 133, potassium 3.1, chloride 96, CO2 of 29, BUN 12. Creatinine 1.0. LFTs are normal with albumin of 3.6. Stool specimens have been ordered, but have not been sent as she has not had any bowel movements today. IMPRESSION: Given the patient's clinical history, this seems most consistent with an acute gastroenteritis given the description of new onset of symptoms over the past 72 hours. This may very well be a viral gastroenteritis given the acute onset and rapid improvement. I doubt this reflects inflammatory bowel disease given that she had been feeling well before that and this seemed to have come out suddenly and already seems to be improving. I would recommend continuing observation, supportive care, and slowly advancing her diet. I do not think she needs prednisone at this time. I do not think she needs any type of endoscopic workup unless her symptoms were to persist. In regard to her chronic upper GI complaints of some dysphagia, I do not think I would recommend repeat upper endoscopy at this time given her good clinical appearance and longevity of her symptoms most consistent with some fibrosis of the esophagus in the region of the previous radiation and radiation induced stricture. I would observe her as her diet is advanced and be sure to order the same type of diet that she uses at home such as a soft and/or full liquid type diet. If she continues to do well and tolerates the advancement of her diet, then I do not think she will need any further evaluation by me here in the hospital. On the other hand, if the GI symptoms relapse while she is here and she cannot tolerate any food, I could then reevaluate and determine whether or not she needs endoscopic evaluation prior to discharge. This has been discussed in detail with her. MD SHEREEN Patel/BALTAZAR / [phone]
[2023-11-23] MEDS: HYDROmorphone HCl 0.5 MG/0.5 ML SYRINGE IV ×2 (02:19→06:08)
[2023-11-23] MEDS: hydrOXYzine HCL 50 MG TABLET PO (02:19)
[2023-11-23 03:48] VITALS: BP 122/69; PULSE 80; RESP 20; TEMP 36.2; O2SAT 98
[2023-11-23] MEDS: Lactated Ringers 1,000 ML 100 ML IVCONT ×2 (03:55→12:28)
[2023-11-23] MEDS: Omeprazole 20 MG CAPSULE.DR PO (06:08)
[2023-11-23] MEDS: Piperacillin Sodium/Tazobactam 3.375 GM in 0.9 % Sodium Chloride 50 ML IV ×3 (06:08→17:13)
[2023-11-23] MEDS: HYDROmorphone HCl 1 MG/ML SYRINGE IVPUSH (06:49)
--- NOTE | 2023-11-23 06:54 | PC.NURSE ---
pt c/o lots of pain stated last pain med wasnt working she feels her stomach is distended and hurts a lot notified exra dose 1 mg dilaudid given as ordered will monitor
[2023-11-23 07:44] VITALS: BP 114/62; PULSE 95; RESP 16; TEMP 36.8; O2SAT 96
[2023-11-23 07:44] LABS: Glucose, Whole Blood 262 mg/dL (60-115)
[2023-11-23] MEDS: Insulin Lispro 100 UNIT/ML 3 ML VIAL SUBCUT ×3 (07:58→22:26)
[2023-11-23] MEDS: Enoxaparin Sodium 40 MG/0.4 ML SYRINGE SUBCUT (07:59)
[2023-11-23] MEDS: levETIRAcetam 500 MG TABLET PO ×2 (08:00→22:07)
[2023-11-23] MEDS: cloNIDine HCL 0.1 MG TABLET PO ×3 (08:00→22:09)
[2023-11-23] MEDS: ALPRAZolam 0.5 MG TABLET 1 MG PO ×3 (08:00→22:08)
[2023-11-23] MEDS: Cholecalciferol (Vitamin D3) 25 MCG TABLET PO (08:00)
--- NOTE | 2023-11-23 09:58 | HO.PM.IMPN ---
Subjective Subjective Date of Service: 11/23/23 Review of Systems Follow-up gastroenteritis, viral He is still having some pain and diarrhea and mild abdominal bloating Physical Exam Vital Signs: Vital Signs: Last Vital Signs Temp 98.3 F 11/23/23 07:44 Pulse 95 11/23/23 07:44 Resp 16 11/23/23 07:44 BP 114/62 11/23/23 07:44 Pulse Ox 96 11/23/23 07:44 O2 Del Method Room Air 11/23/23 07:44 BMI result Body Mass Index 24.1 Appearing in no acute distress lung sounds are clear to auscultation heart regular rate rhythm, clear S1, S2 positive bowel sounds, abdomen is soft, nontender neuro patient is alert x3, no focal deficits Objective Data Active Medications Alprazolam (Alprazolam 0.5 Mg Tablet) 1 mg PO TID PENDING SALE TO [facility] Last Admin: 11/23/23 08:00 Dose: 1 mg Documented By: DANNI Calcium Carbonate (Calcium Carbonate 750 Mg Tab.Chew) 750 mg PO Q4H PRN PRN Reason: Heartburn Clonidine HCl (Clonidine Hcl 0.1 Mg Tablet) 0.1 mg PO TID PENDING [facility] TO [facility]; Protocol Last Admin: 11/23/23 08:00 Dose: 0.1 mg Documented By: DANNI Enoxaparin Sodium (Enoxaparin Sodium 40 Mg/0.4 Ml Syringe) 40 mg SUBCUT DAILY [facility]ENDING [facility] Last Admin: 11/23/23 07:59 Dose: 40 mg Documented By: DANNI Fluoxetine HCl (Fluoxetine Hcl 20 Mg Capsule) 80 mg PO DAILY@1500 PENDING S[facility] TO [facility] Last Admin: 11/22/23 15:42 Dose: Not Given Documented By: GUSTAVO Non-Admin Reason: Patient Refused Glucose (Glucose Gel 15 Gm Gel..Gram.) 15 gm PO Q15M PRN; Protocol PRN Reason: per Hypoglycemia Standing Ord. Hydromorphone HCl (Hydromorphone Hcl 0.5 Mg/0.5 Ml Syringe) 0.5 mg IV Q4H PRN; Protocol PRN Reason: Pain, Severe (Pain Scale 7-10) Last Admin: 11/23/23 06:08 Dose: 0.5 mg Documented By: RHONDA Hydroxyzine HCl (Hydroxyzine Hcl 50 Mg Tablet) 50 mg PO Q8H PRN PRN Reason: Anxiety Last Admin: 11/23/23 02:19 Dose: 50 mg Documented By: RHONDA Dextrose (D10) 250 mls @ 750 mls/hr IV Q15M PRN; Protocol PRN Reason: per Hypoglycemia Standing Ord. Piperacillin Sod/Tazobactam (Sod 3.375 gm/ Sodium Chloride) 50 mls @ 100 mls/hr IV 0000,0600,1200,1800 PENDING [facility]ALE TO [facility] Last Infusion: 11/23/23 06:38 Dose: Infused Documented By: RHONDA Lactated Ringer's (Lr) 1,000 mls @ 100 mls/hr IVCONT .Q10H PENDING SALE TO [facility] Last Admin: 11/23/23 03:55 Dose: 100 mls/hr Documented By: RHONDA Insulin Human Lispro (Insulin Lispro 100 Unit/Ml 3 Ml Vial) 0 unit SUBCUT QIDACHS PENDING SALE TO [facility]; Protocol Last Admin: 11/23/23 07:58 Dose: 3 unit Documented By: DANNI Levetiracetam (Levetiracetam 500 Mg Tablet) 500 mg PO BID PENDING [facility] TO [facility] Last Admin: 11/23/23 08:00 Dose: 500 mg Documented By: DANNI Magnesium Hydroxide (Milk Of Magnesia 30 Ml Oral.Susp) 30 ml PO DAILY PRN PRN Reason: Constipation Melatonin (Melatonin 3 Mg Tablet) 6 mg PO BEDTIME PRN PRN Reason: Insomnia Omeprazole (Omeprazole 20 Mg Capsule.Dr) 20 mg PO DAILY@0630 PENDING [facility] Last Admin: 11/23/23 06:08 Dose: 20 mg Documented By: RHONDA Ondansetron HCl (Ondansetron Hcl 4 Mg/2 Ml Vial) 4 mg IVPUSH Q8H PRN PRN Reason: Nausea and Vomiting Sodium Chloride (0.9 % Sodium Chloride Flush 3 Ml Syringe) 3 ml IVFLUSH QSHIFT PENDING [facility] TO [facility] Last Admin: 11/23/23 08:07 Dose: Not Given Documented By: DANNI Non-Admin Reason: IV Running Vitamin D (Cholecalciferol (Vitamin D3) 25 Mcg Tablet) 25 mcg PO DAILY [facility] Last Admin: 11/23/23 08:00 Dose: 25 mcg Documented By: DANNI Zolpidem Tartrate (Zolpidem Tartrate 5 Mg Tablet) 10 mg PO BEDTIME PRN PRN Reason: Sleep Last Admin: 11/22/23 22:21 Dose: 10 mg Documented By: RHONDA Labs 11/22/23 10:27 11/22/23 05:41 Labs: Laboratory Results - last 24 hr 11/22/23 11/22/23 11/22/23 10:27 11:38 12:11 MCV 88.7 MCH 30.3 MCHC 34.2 RDW 12.4 Plt Count 134 L D MPV 11.7 Absolute Nucleated RBC 0.000 Nucleated RBC % (auto) 0.0 POC Glucose 40 L* 88 Estimat Average Glucose 278 Hemoglobin A1c % 11.3 H Lactic Acid 2.7 H* Lactic Acid F/U @ 2Hr Lactic Acid F/U @ 4Hr 11/22/23 11/22/23 11/22/23 12:52 16:10 16:19 MCV MCH MCHC RDW Plt Count MPV Absolute Nucleated RBC Nucleated RBC % (auto) POC Glucose 359 H* Estimat Average Glucose Hemoglobin A1c % Lactic Acid Lactic Acid F/U @ 2Hr 2.7 H* Lactic Acid F/U @ 4Hr 2.8 H* 11/22/23 11/23/23 19:46 07:38 MCV MCH MCHC RDW Plt Count MPV Absolute Nucleated RBC Nucleated RBC % (auto) POC Glucose 310 H 262 H Estimat Average Glucose Hemoglobin A1c % Lactic Acid Lactic Acid F/U @ 2Hr Lactic Acid F/U @ 4Hr Assessment and Plan (1) Enteritis: Status: Acute Plan 58/f year old female with a history of lung cancer chemotherapy/radiation, radiation induced esophagitis, anxiety, fibromyalgia/chronic pain, seizure d/o, diabetes here with abd pain, n/v and enterocolitis and / appendicitis Inflamatory vs infectious Eterocolitis -IV fluid -Zosyn -GI consult - cdif and stool panel neg -advance diet radiation esophagitis -PPI DM with Hyperglycmeia, given IV insulin 5, sugar now 199. She has not been taking medications or checking her sugars for months stating that after chemo she was told she didn't need it -check A1 C -add slding scale and may need basal insulin h/o seizure d/o -continue Keppra Mood d/o -resume home meds h/o migraine headach -sumatriptin daily PRN or fiorocet PRN Hyponatremia-Pseudohyponatremia d/t high glucose, repeat in am DVT prophylaxis: lovenox, Full code Quality Stroke Does the patient have a stroke diagnosis?: No VTE Prior VTE?: No VTE Risk Level:: Medical - moderate - high VTE Device Contraindication: Treatment Not Indicated VTE Drug Contraindication: N/A - Med Ordered
[2023-11-23] MEDS: HYDROmorphone HCl 0.5 MG/0.5 ML SYRINGE 1 MG IV ×3 (10:56→22:10)
[2023-11-23 11:43] LABS: Glucose, Whole Blood 145 mg/dL (60-115)
[2023-11-23 12:04] LABS: Adenovirus F 40/41 Not Detected (Not Detect.); Astrovirus Not Detected (Not Detect.); Campylobacter Not Detected (Not Detect.); Cryptosporidium Not Detected (Not Detect.); Cyclospora cayetanensis Not Detected (Not Detect.); E. coli EAEC Not Detected (Not Detect.); E. coli EPEC Not Detected (Not Detect.); E. coli ETEC Not Detected (Not Detect.); E. coli STEC Not Detected (Not Detect.); Entamoeba histolytica Not Detected (Not Detect.); Giardia lamblia Not Detected (Not Detect.); Norovirus GI/GII Not Detected (Not Detect.); Plesiomonas shigelloides Not Detected (Not Detect.); Rotavirus A Not Detected (Not Detect.); Salmonella Not Detected (Not Detect.); Sapovirus Not Detected (Not Detect.); Shigella sp./EIEC Not Detected (Not Detect.); Vibrio Not Detected (Not Detect.); Vibrio Cholerae Not Detected (Not Detect.); Yersinia enterocolitica Not Detected (Not Detect.)
[2023-11-23 15:20] VITALS: BP 140/83; PULSE 70; RESP 16; TEMP 37; O2SAT 99
[2023-11-23 16:50] LABS: Glucose, Whole Blood 222 mg/dL (60-115)
[2023-11-23 20:00] VITALS: BP 127/65; PULSE 82; RESP 18; TEMP 36.4; O2SAT 98
[2023-11-23 20:24] LABS: Glucose, Whole Blood 291 mg/dL (60-115)
[2023-11-23] MEDS: Zolpidem Tartrate 5 MG TABLET 10 MG PO (22:06)
[2023-11-23 22:09] VITALS: BP 129/67
[2023-11-24] MEDS: Lactated Ringers 1,000 ML 100 ML IVCONT (01:22)
[2023-11-24] MEDS: Piperacillin Sodium/Tazobactam 3.375 GM in 0.9 % Sodium Chloride 50 ML IV ×3 (01:23→12:08)
[2023-11-24 03:16] VITALS: BP 131/67; PULSE 82; RESP 18; TEMP 36.3; O2SAT 93
[2023-11-24] MEDS: Omeprazole 20 MG CAPSULE.DR PO (06:12)
[2023-11-24] MEDS: HYDROmorphone HCl 0.5 MG/0.5 ML SYRINGE 1 MG IV (06:23)
[2023-11-24 07:22] LABS: Glucose, Whole Blood 158 mg/dL (60-115)
[2023-11-24 07:41] VITALS: BP 142/78; PULSE 70; RESP 16; TEMP 36.4; O2SAT 98
[2023-11-24] MEDS: Insulin Lispro 100 UNIT/ML 3 ML VIAL SUBCUT (08:30)
[2023-11-24] MEDS: Enoxaparin Sodium 40 MG/0.4 ML SYRINGE SUBCUT (08:31)
[2023-11-24] MEDS: cloNIDine HCL 0.1 MG TABLET PO (08:33)
[2023-11-24] MEDS: Cholecalciferol (Vitamin D3) 25 MCG TABLET PO (08:33)
[2023-11-24] MEDS: levETIRAcetam 500 MG TABLET PO (08:34)
[2023-11-24] MEDS: ALPRAZolam 0.5 MG TABLET 1 MG PO (08:34)
[2023-11-24] MEDS: FLUoxetine HCl 20 MG CAPSULE 80 MG PO (08:34)
[2023-11-24 08:49] LABS: Hematocrit 27.6 % (37.0-47.0); Hemoglobin 9.2 g/dl (12.0-16.0); Mean Corpuscular HGB Conc 33.3 g/dl (31.0-35.0); Mean Corpuscular Volume 89.9 fL (80.0-98.0); Mean Platelet Volume 12.2 fL (9.4-12.3); Platelet Count 117 X10*3/uL (160-400); Red Blood Count 3.07 X10*6/uL (4.20-5.50); Red Cell Distribution Width 12.4 % (11.0-16.0); White Blood Count 4.1 X10*3/uL (4.8-10.8)
--- NOTE | 2023-11-24 08:56 | HO.PM.IMPN ---
Subjective Subjective Date of Service: 11/24/23 Review of Systems Follow-up gastroenteritis, viral still having some pain and diarrhea and mild abdominal bloating Physical Exam Vital Signs: Vital Signs: Last Vital Signs Temp 97.6 F 11/24/23 07:41 Pulse 70 11/24/23 07:41 Resp 16 11/24/23 07:41 BP 142/78 H 11/24/23 07:41 Pulse Ox 98 11/24/23 07:41 O2 Del Method Room Air 11/24/23 07:41 BMI result Body Mass Index 24.1 Appearing in no acute distress lung sounds are clear to auscultation heart regular rate rhythm, clear S1, S2 positive bowel sounds, abdomen is soft, tender neuro patient is alert x3, no focal deficits Objective Data Active Medications Alprazolam (Alprazolam 0.5 Mg Tablet) 1 mg PO TID [facility] Last Admin: 11/24/23 08:34 Dose: 1 mg Documented By: DANNI Calcium Carbonate (Calcium Carbonate 750 Mg Tab.Chew) 750 mg PO Q4H PRN PRN Reason: Heartburn Clonidine HCl (Clonidine Hcl 0.1 Mg Tablet) 0.1 mg PO TID [facility]; Protocol Last Admin: 11/24/23 08:33 Dose: 0.1 mg Documented By: DANNI Enoxaparin Sodium (Enoxaparin Sodium 40 Mg/0.4 Ml Syringe) 40 mg SUBCUT DAILY [facility] Last Admin: 11/24/23 08:31 Dose: 40 mg Documented By: DANNI Fluoxetine HCl (Fluoxetine Hcl 20 Mg Capsule) 80 mg PO DAILY [facility] Last Admin: 11/24/23 08:34 Dose: 80 mg Documented By: DANNI Glucose (Glucose Gel 15 Gm Gel..Gram.) 15 gm PO Q15M PRN; Protocol PRN Reason: per Hypoglycemia Standing Ord. Hydromorphone HCl (Hydromorphone Hcl 0.5 Mg/0.5 Ml Syringe) 1 mg IV Q4H PRN; Protocol PRN Reason: Pain, Severe (Pain Scale 7-10) Last Admin: 11/24/23 06:23 Dose: 1 mg Documented By: RHONDA Hydroxyzine HCl (Hydroxyzine Hcl 50 Mg Tablet) 50 mg PO Q8H PRN PRN Reason: Anxiety Last Admin: 11/23/23 02:19 Dose: 50 mg Documented By: RHONDA Dextrose (D10) 250 mls @ 750 mls/hr IV Q15M PRN; Protocol PRN Reason: per Hypoglycemia Standing Ord. Piperacillin Sod/Tazobactam (Sod 3.375 gm/ Sodium Chloride) 50 mls @ 100 mls/hr IV 0000,0600,1200,1800 [facility] Last Infusion: 11/24/23 06:47 Dose: Infused Documented By: RHONDA Lactated Ringer's (Lr) 1,000 mls @ 100 mls/hr IVCONT .Q10H [facility] Last Admin: 11/24/23 01:22 Dose: 100 mls/hr Documented By: RHONDA Insulin Human Lispro (Insulin Lispro 100 Unit/Ml 3 Ml Vial) 0 unit SUBCUT QIDACHS [facility]; Protocol Last Admin: 11/24/23 08:30 Dose: 1 unit Documented By: DANNI Levetiracetam (Levetiracetam 500 Mg Tablet) 500 mg PO BID [facility] Last Admin: 11/24/23 08:34 Dose: 500 mg Documented By: DANNI Magnesium Hydroxide (Milk Of Magnesia 30 Ml Oral.Susp) 30 ml PO DAILY PRN PRN Reason: Constipation Melatonin (Melatonin 3 Mg Tablet) 6 mg PO BEDTIME PRN PRN Reason: Insomnia Omeprazole (Omeprazole 20 Mg Capsule.Dr) 20 mg PO DAILY@0630 [facility] Last Admin: 11/24/23 06:12 Dose: 20 mg Documented By: RHONDA Ondansetron HCl (Ondansetron Hcl 4 Mg/2 Ml Vial) 4 mg IVPUSH Q8H PRN PRN Reason: Nausea and Vomiting Sodium Chloride (0.9 % Sodium Chloride Flush 3 Ml Syringe) 3 ml IVFLUSH QSHIFT [facility] Last Admin: 11/24/23 08:39 Dose: Not Given Documented By: DANNI Non-Admin Reason: IV Running Vitamin D (Cholecalciferol (Vitamin D3) 25 Mcg Tablet) 25 mcg PO DAILY [facility] Last Admin: 11/24/23 08:33 Dose: 25 mcg Documented By: DANNI Zolpidem Tartrate (Zolpidem Tartrate 5 Mg Tablet) 10 mg PO BEDTIME PRN PRN Reason: Sleep Last Admin: 11/23/23 22:06 Dose: 10 mg Documented By: RHONDA Labs 11/24/23 08:09 11/24/23 08:09 Labs: Laboratory Results - last 24 hr 11/22/23 11/23/23 11/23/23 22:30 11:38 16:46 MCV MCH MCHC RDW Plt Count MPV Absolute Nucleated RBC Nucleated RBC % (auto) POC Glucose 145 H 222 H Stl C. cayetanensis PCR Not Detected Stool Rotavirus A PCR Not Detected Stl Adenov F 40/41 PCR Not Detected Stool Astrovirus (PCR) Not Detected Stool Campylobacter PCR Not Detected Stool Cryptosporidium PCR Not Detected Stl Sh Tox Pr E STEC PCR Not Detected Stool E coli O157 PCR Not applicable Stl Enterotoxigenic E PCR Not Detected Stool EPEC (PCR) Not Detected Stool EAEC (PCR) Not Detected Stl E. histolytica PCR Not Detected Stool Giardia Lamblia PCR Not Detected Stl P. shigelloides PCR Not Detected Stool Salmonella PCR Not Detected Stool Sapovirus (PCR) Not Detected Stl Shigella/EIEC PCR Not Detected St Y.enterocolitica PCR Not Detected Stool Vibrio (PCR) Not Detected Stl Vibrio cholerae PCR Not Detected Stl Norovirus GI/GII PCR Not Detected 11/23/23 11/24/23 11/24/23 20:18 07:19 08:09 MCV 89.9 MCH 30.0 MCHC 33.3 RDW 12.4 Plt Count 117 L MPV 12.2 Absolute Nucleated RBC 0.000 Nucleated RBC % (auto) 0.0 POC Glucose 291 H 158 H Stl C. cayetanensis PCR Stool Rotavirus A PCR Stl Adenov F 40/41 PCR Stool Astrovirus (PCR) Stool Campylobacter PCR Stool Cryptosporidium PCR Stl Sh Tox Pr E STEC PCR Stool E coli O157 PCR Stl Enterotoxigenic E PCR Stool EPEC (PCR) Stool EAEC (PCR) Stl E. histolytica PCR Stool Giardia Lamblia PCR Stl P. shigelloides PCR Stool Salmonella PCR Stool Sapovirus (PCR) Stl Shigella/EIEC PCR St Y.enterocolitica PCR Stool Vibrio (PCR) Stl Vibrio cholerae PCR Stl Norovirus GI/GII PCR Microbiology Microbiology Results: Microbiology 11/22/23 11:30 Blood Culture - Preliminary Blood - Venous No growth after 24 hours. 11/22/23 11:30 Blood Culture - Preliminary Blood - Venous No growth after 24 hours. Assessment and Plan (1) Enteritis: Status: Acute Plan 58/f year old female with a history of lung cancer chemotherapy/radiation, radiation induced esophagitis, anxiety, fibromyalgia/chronic pain, seizure d/o, diabetes here with abd pain, n/v and enterocolitis and / appendicitis Inflamatory vs infectious Eterocolitis IV fluid Zosyn GI consult>acute gastroenteritis likely viral cdif and stool panel neg advance diet radiation esophagitis PPI DM2 with Hyperglycmeia A1C 11.3 sliding scale h/o seizure d/o continue Keppra Mood d/o home meds h/o migraine headach sumatriptin daily PRN or fiorocet PRN Hyponatremia-Pseudohyponatremia d/t high glucose DVT prophylaxis: malka, Attending Dr. Tello Full code Quality Stroke Does the patient have a stroke diagnosis?: No VTE Prior VTE?: No VTE Risk Level:: Medical - moderate - high VTE Device Contraindication: Treatment Not Indicated VTE Drug Contraindication: N/A - Med Ordered
[2023-11-24 09:04] LABS: Anion Gap 10 (12-20); Blood Urea Nitrogen 4 mg/dL (9-16); Calcium 8.3 mg/dL (8.4-10.2); Carbon Dioxide 31 mmol/L (22-29); Chloride 103 mmol/L (96-108); Creatinine Clr Calc Pharmacy 60.4; Estimated Glomerular Filt Rate > 60; Glucose Random 180 mg/dL (60-115); Magnesium 1.6 mg/dL (1.6-2.6); Potassium 3.1 mmol/L (3.3-5.1); Sodium 141 mmol/L (135-145)
--- NOTE | 2023-11-24 11:53 | PM.EVENT ---
Event Note Date of Service: 11/24/23 Event Note: Notified that the patient left the unit (S3) to go outside and smoke a cigarette. Patient was not given permission to leave the unit at any point. She was found outside smoking by another staff member and escorted back upstairs by security. She now has a camera placed in her room for safety and was told not to leave the unit. Time Spent With Patient Time: Total time managing care of this patient today ____ minutes.
[2023-11-24] MEDS: Potassium Chloride ER 20 MEQ TAB.ER.PRT 40 MEQ PO (12:12)
[2023-11-24 12:28] LABS: Glucose, Whole Blood 259 mg/dL (60-115)
--- NOTE | 2023-11-24 13:02 | P.DS_ITS ---
DS: Providers Provider Date of Service: 11/24/23 Date of admission: 11/22/23 01:14 Primary care physician: Sharifa Gamble MD Consults: 11/22/23 01:13 Consult to Gastroenterology Routine Consulting Provider: Wood Murphy Reason for consultation: colitis, radiation esophagitis 11/22/23 01:14 Consult to General Surgery Routine Consulting Provider: [facility] [place] General Surgeons Reason for consultation: abd pain ? apendicitis Has provider been notified: No DS: Diagnosis Discharge Diagnosis (1) Enteritis: Status: Acute DS: Summary Hospital Course Hospital Course: History and physical as per admitting provider. A 58-year-old female with a history of lung cancer (status post chemotherapy), radiation-induced esophagitis, anxiety, migraine headaches, fibromyalgia, and diabetes, among other conditions, presents with abdominal pain, nausea, and vomiting for nearly 2 to 3 weeks. She reports 10/10, cramping abdominal pain, subjective fever, no blood in the stool, and no recent travel. 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 A CT of the abdomen and pelvis today showed findings consistent with infectious or inflammatory enteritis and possible appendicitis. Similar findings were seen on a CT from 10/11/23. WBC is elevated at 15.3. The CT findings were discussed with surgery, and acute appendicitis was not appreciated. Additionally, she was found to have a glucose level of 443, and she reports glucose readings in the 500 range at home. There is no acidosis. She was given IV Zosyn in the ED. The patient eloped from the 3rd floor and went outside to smoke a cigarette, the nursing supervisor order takers was notified and security brought patient back up stairs. After being confronted with this patient became very angry and Irrate and stated that she would leave. When asked what her pharmacy was so medications could be sent there she said no, no . Her IV pain medication has been stopped and patient stated if she did not get it she would leave. She was offered oral pain medications, including oxycodone but she declined. The patient has decided to leave against medical advice. She has normal mental status and adequate capacity to make medical decisions. The patient refuses hospital admission and wants to be discharged. The risks have been explained to the patient including worsening illness, chronic pain, permanent disability and even . The benefits of admission have also been explained including the availability of nurses, medical providers, close monitoring, IV medications, diagnostic imaging, treatments, etc.. The patient was able to understand and state the risks and benefits of hospital admission. The patient was given opportunities to ask questions prior to leaving. 58/f year old female with a history of lung cancer chemotherapy/radiation, radiation induced esophagitis, anxiety, fibromyalgia/chronic pain, seizure d/o, diabetes here with abd pain, n/v and enterocolitis and / appendicitis Inflamatory vs infectious Eterocolitis IV fluid Zosyn, complete flagyk o/p GI consult>acute gastroenteritis likely viral, no plan for EGD cdif and stool panel neg advanced diet radiation esophagitis PPI DM2 with Hyperglycmeia A1C 11.3 sent with metformin 500mg daily h/o seizure d/o continue Keppra Mood d/o home meds h/o migraine headach sumatriptin daily PRN or fiorocet PRN Hyponatremia-Pseudohyponatremia d/t high glucose Time Attestation Discharge Coordination Time (in mins): 32 Quality: Safe Use of Opioids Does Pt have an Active Cancer Diagnosis on the Problem List?: No Quality: Stroke Does the patient have a stroke diagnosis?: No Physical Exam Vital Signs: Vital Signs: Last Vital Signs Temp 97.6 F 11/24/23 07:41 Pulse 70 11/24/23 07:41 Resp 16 11/24/23 07:41 BP 142/78 H 11/24/23 07:41 Pulse Ox 98 11/24/23 07:41 O2 Del Method Room Air 11/24/23 07:41 BMI result Body Mass Index 24.1 Appearing in no acute distress head is normocephalic atraumatic eyes pupils are PERRLA sclera is anicteric mouth throat mucous membranes are intact and moist neck is supple no lymphadenopathy, no JVD noted lung sounds are clear to auscultation heart regular rate rhythm, clear S1, S2 positive bowel sounds, abdomen is soft, nontender neuro patient is alert x3, no focal deficits DS: Data Data Completed and Pending Completed studies during hospitalization [Text1]: Procedures Excision of Stomach, Pylorus, Via Natural or Artificial Opening Endoscopic, Diagnostic (07/21/20) Labs on day of discharge: Laboratory Results - last 24 hr 11/23/23 11/23/23 11/24/23 16:46 20:18 07:19 WBC RBC Hgb Hct MCV MCH MCHC RDW Plt Count MPV Absolute Nucleated RBC Nucleated RBC % (auto) Sodium Potassium Chloride Carbon Dioxide Anion Gap BUN Creatinine Estim Creat Clear Calc Estimated GFR POC Glucose 222 H 291 H 158 H Random Glucose Calcium Magnesium 11/24/23 11/24/23 08:09 12:22 WBC 4.1 L RBC 3.07 L Hgb 9.2 L Hct 27.6 L MCV 89.9 MCH 30.0 MCHC 33.3 RDW 12.4 Plt Count 117 L MPV 12.2 Absolute Nucleated RBC 0.000 Nucleated RBC % (auto) 0.0 Sodium 141 Potassium 3.1 L Chloride 103 Carbon Dioxide 31 H Anion Gap 10 L BUN 4 L Creatinine 0.84 Estim Creat Clear Calc 60.4 Estimated GFR > 60 POC Glucose 259 H Random Glucose 180 H Calcium 8.3 L D Magnesium 1.6 Preliminary micro results at discharge 11/22/23 11:30 Blood Culture - Preliminary Blood - Venous No growth after 24 hours. 11/22/23 11:30 Blood Culture - Preliminary Blood - Venous No growth after 24 hours. Discharge Plan Discharge Anticipated Discharge Date/Time: 11/24/23 11:42 Patient Disposition: Left Against Medical Advice Discharge Diagnosis: Infectious enterocolitis Radiation esophagitis Hypokalemia DM2 with hyperglycemia Referrals: Sharifa Gamble MD [Primary Care Provider] - 1 Week Discharge Medications: New metronidazole 500 mg tablet 500 mg PO Q8H Qty: 9 0RF metformin 500 mg tablet 500 mg PO DAILY Qty: 30 0RF Continued (DME) FreeStyle Lite Strips Strip See Rx Instructions .MEDSUPPLY Qty: 150 6RF Rx Instructions: 4 times a day ondansetron 4 mg tablet,disintegrating 4 mg PO Q8H PRN (Reason: nausea and vomiting) Qty: 30 0RF clonidine HCl 0.1 mg tablet 0.1 mg PO TID levetiracetam 500 mg tablet 500 mg PO BID Qty: 180 1RF cholecalciferol (vitamin D3) [Vitamin D3] 25 mcg (1,000 unit) Tablet 25 mcg PO DAILY biotin 5,000 mcg Tablet, Sublingual 5,000 mcg SUBLINGUAL DAILY Xanax tablet 1 mg PO TID fluoxetine 40 mg capsule 80 mg PO DAILY@1500 hydroxyzine HCl 50 mg tablet 50 mg PO BID scopolamine base 1 mg over 3 days patch 3 day 1 patch TRANSDERMAL Q3D PRN (Reason: Nausea) omeprazole 20 mg capsule,delayed release(DR/EC) 20 mg PO QAM zolpidem 10 mg tablet 10 mg PO BEDTIME sumatriptan succinate 100 mg tablet 100 mg PO DAILY MRX1 PRN (Reason: migraine) Discharge Orders: Discharge Order (Routine); Ordered 11/24/23 Ordered By: Tomasa Ta Diet: Advance to usual diet Activity on Discharge: As tolerated Print Language: Paraguayan Care Plan Goals: The patient eloped from the 3rd floor and went outside to smoke a cigarette, the nursing supervisor order takers was notified and security brought patient back up stairs. After being confronted with this patient became very angry and Irrate and stated that she would leave. When asked what her pharmacy was so medications could be sent there she said no, no . Her IV pain medication has been stopped and patient stated if she did not get it she would leave. She was offered oral pain medications, including oxycodone but she declined. The patient has decided to leave against medical advice. She has normal mental status and adequate capacity to make medical decisions. The patient refuses hospital admission and wants to be discharged. The risks have been explained to the patient including worsening illness, chronic pain, permanent disability and even . The benefits of admission have also been explained including the availability of nurses, medical providers, close monitoring, IV medications, diagnostic imaging, treatments, etc.. The patient was able to understand and state the risks and benefits of hospital admission. The patient was given opportunities to ask questions prior to leaving. Please complete treatment for viral gastroenteritis Health Concerns: Infectious enterocolitis Radiation esophagitis Hypokalemia DM2 with hyperglycemia Plan of Treatment: Follow-up with primary care provider as needed Take all medications as prescribed Assessment: See discharge summary
--- NOTE | 2023-11-24 13:10 | PC.NURSE ---
Patient left the unit (S3) to go outside and smoke a cigarette @ aprox 11:30. Patient was not given permission to leave the unit. She was found outside smoking by another staff member and escorted back upstairs by security. Pt spoke w DARYA Reece, supervisor mixing Kourtney and this nurse regarding further treatment. Keyon stated if pt is able to ambulate around the facility pain appears well controlled. Pt was offered PO oxy Q6 (no longer IV dilaudid) and a camera in the room. Pt refused these options and after discussion denis Ta decided to leave AMA. Risks were addressed w pt. IV was removed and pt was walked out by Violeta pt advocate.
== END 2023-11-24 13:21 | disposition left against medical advice (07) | DRG 392 ==
LOC: HO.ED 11-22 00:45 → HO.EDOVER 11-22 01:18 → HO.S3 11-22 01:49
PROVIDERS: Family Medicine; Physician Assistant; Admitting Provider Internal Medicine; Emergency Provider Internal Medicine; PCP Internal Medicine; Visit Provider Nurse Practitioner Acute Care
DX: A08.4 Viral intestinal infection, unspecified (principal); F17.210 Nicotine dependence, cigarettes, uncomplicated; E87.6 Hypokalemia; E11.65 Type 2 diabetes mellitus with hyperglycemia; F39 Unspecified mood [affective] disorder; G40.909 Epilepsy, unspecified, not intractable, without status epilepticus; K20.80 Other esophagitis without bleeding; T66.XXXS Radiation sickness, unspecified, sequela; Y84.2 Radiological procedure and radiotherapy as the cause of abnormal reaction of the patient, or of later complication, without mention of misadventure at the time of the procedure; Z91.148 Patient's other noncompliance with medication regimen for other reason; Z85.118 Personal history of other malignant neoplasm of bronchus and lung; Z71.6 Tobacco abuse counseling; Z79.899 Other long term (current) drug therapy
CPT/HCPCS: 36415; 74177; 80048; 80053; 80076; 81001; 82803; 82947; 83036; 83605; 83690; 83735; 85025; 85027; 87040; 87507; 90656; 99285; J1170; J1650; J2270; J2405; J2543; J7120; Q9967

== ENCOUNTER → 2023-11-22 01:14 | Outpatient (BNV) | payer OTHER, SELFPAY | PROVIDERS: Admitting Provider Internal Medicine; Emergency Provider Internal Medicine; PCP Internal Medicine; Visit Provider Surgery | DX: K52.9 Noninfective gastroenteritis and colitis, unspecified (principal) | CPT/HCPCS: 99222 ==

== ENCOUNTER → 2023-11-22 01:14 | Outpatient (BNV) | payer OTHER, SELFPAY | PROVIDERS: Admitting Provider Internal Medicine; Emergency Provider Internal Medicine; PCP Internal Medicine; Visit Provider Family Medicine | DX: K52.9 Noninfective gastroenteritis and colitis, unspecified (principal); E11.65 Type 2 diabetes mellitus with hyperglycemia | CPT/HCPCS: 99222; 99232; 99239; 99499 ==

== ENCOUNTER 2023-11-30 02:22 | Emergency (ER) | payer OTHER, SELFPAY ==
[2023-11-30 02:33] VITALS: BP 190/100; PULSE 94; RESP 18; TEMP 36.9; O2SAT 100; BMI 54.0
[2023-11-30 04:22] LABS: Hematocrit 34.5 % (37.0-47.0); Hemoglobin 11.7 g/dl (12.0-16.0); Mean Corpuscular HGB Conc 33.9 g/dl (31.0-35.0); Mean Corpuscular Hemoglobin 30.4 pg (27.0-33.0); Mean Corpuscular Volume 89.6 fL (80.0-98.0); Platelet Count 183 X10*3/uL (160-400); Red Blood Count 3.85 X10*6/uL (4.20-5.50); Red Cell Distribution Width 12.6 % (11.0-16.0); White Blood Count 13.1 X10*3/uL (4.8-10.8)
[2023-11-30 04:26] VITALS: BP 165/92; PULSE 103; RESP 18; TEMP 36.7; O2SAT 99
[2023-11-30 04:34] LABS: Anion Gap 13 (12-20); Blood Urea Nitrogen 6 mg/dL (9-16); Calcium 9.4 mg/dL (8.4-10.2); Carbon Dioxide 26 mmol/L (22-29); Chloride 104 mmol/L (96-108); Estimated Glomerular Filt Rate > 60; Glucose Random 202 mg/dL (60-115); Potassium 3.1 mmol/L (3.3-5.1); Sodium 140 mmol/L (135-145)
--- NOTE | 2023-11-30 05:12 | ED.ANIMALBIT ---
HPI - Animal Bite General Chief Complaint: Animal Bite Stated Complaint: attacked by cat/leg wounds Time Seen by Provider: 11/30/23 05:05 Source: patient Mode of arrival: ambulatory Limitations: no limitations History of Present Illness ED Provider: Dr. Garg HPI narrative: patient attacked by her cat and already has pain and swelling to her feet where she was attacked. Cat is an indoor cat, has never been outdoors. She status she is up to date with her tetanous. MD complaint: animal bite Onset (ago): hour(s) Animal: cat Description of animal: household pet Mechanism: bite and scratch Related Data Home Medications ?Medication ?Instructions ?Recorded ?Confirmed clonidine HCl 0.1 mg tablet 0.1 mg PO TID 12/17/19 11/22/23 zolpidem 10 mg tablet 10 mg PO BEDTIME Sleep 03/08/20 11/22/23 biotin 5,000 mcg sublingual tablet 5,000 mcg sublingual DAILY 02/10/21 11/22/23 cholecalciferol (vitamin D3) 25 25 mcg PO DAILY 02/10/21 11/22/23 mcg (1,000 unit) tablet (Vitamin D3) sumatriptan succinate 100 mg tablet 100 mg PO DAILY MRX1 PRN migraine 11/01/21 11/22/23 Xanax 1 mg PO TID 11/22/23 11/22/23 fluoxetine 40 mg capsule 80 mg PO DAILY@1500 depressive 11/22/23 11/22/23 disorder hydroxyzine HCl 50 mg tablet 50 mg PO BID anxiety 11/22/23 11/22/23 omeprazole 20 mg capsule,delayed 20 mg PO QAM 11/22/23 11/22/23 release scopolamine base 1 mg over 3 days 1 patch transdermal Q3D PRN Nausea 11/22/23 11/22/23 transdermal patch Previous Rx's ?Medication ?Instructions ?Recorded blood sugar diagnostic (FreeStyle #150 ea 07/21/20 Lite Strips) levetiracetam 500 mg tablet 500 mg PO BID #180 tabs 12/20/21 metformin 500 mg tablet 500 mg PO DAILY #30 tabs 11/24/23 metronidazole 500 mg tablet 500 mg PO Q8H #9 tabs 11/24/23 ondansetron 4 mg disintegrating 4 mg PO Q8H PRN nausea and 11/27/23 tablet vomiting #30 tabs amoxicillin 875 mg-potassium 1 tab PO Q12H #20 tabs 11/30/23 clavulanate 125 mg tablet Allergies Allergy/AdvReac Type Severity Reaction Status Date / Time acetaminophen [Tylenol] AdvReac Unknown Abdominal Verified 11/30/23 02:38 Pain ibuprofen AdvReac Unknown Abdominal Verified 11/30/23 02:38 Pain Review of Systems Review of Systems: Yes all other systems are reviewed and are negative Neurologic: Denies Sensory deficit (Neuro) [facility] Past Medical History Medical History Pulmonary nodule Diabetes type 2, uncontrolled Colitis Opioid use disorder Arthritis Fibromyalgia History of lung cancer Multinodular goiter Adrenal insufficiency due to cancer therapy Newly diagnosed diabetes Subclinical hyperthyroidism Pancreatitis (~02/2018) Radiation-induced esophagitis Hypothyroidism Depression Opioid abuse Asthma COPD (chronic obstructive pulmonary disease) Aftercare following left shoulder joint replacement surgery Non-small cell carcinoma of left lung, stage 4 Surgical History History of esophagogastroduodenoscopy (EGD) (~09/04/19) History of cholecystectomy (~12/02/08) History of endometrial ablation (~07/25/06) History of esophageal dilatation (~02/24/18) Hx of shoulder surgery (~2014) Hx of blepharoplasty (~2018) History of Family History Family History Father Pancreatic cancer Mother Diabetes Skin cancer Rheumatoid arthritis Brother Diabetes Sister Diabetes Other History of thyroid disorder Social History Social History Household Members: Spouse Housing: Apartment Do you presently have visiting nurse or other home services: Yes ([facility] [facility] [employer]) Alcohol intake: current Alcohol intake frequency: a few times a week Alcohol type: wine Comment: refuses bed alarm Patient Tobacco Use Status: Current someday Tobacco user Tobacco use type: Cigarette Cigarettes Per Day: 4 Years Smoked: 30 Second Hand Smoke Exposure: No Advance Directives: Yes Advance Directives on File: Yes Advance Directives Date on File: 05/12/20 Do you have a plan to hurt others: No Plan service: No Current occupational status: unemployed and disabled Physical Exam ED Vital Signs: Vital Signs - 24 hr 11/30/23 02:33 11/30/23 04:26 Temperature 98.4 F 98.1 F Pulse Rate 94 103 H Respiratory Rate 18 18 Blood Pressure 190/100 H 165/92 H Pulse Oximetry 100 99 Oxygen Delivery Method Room Air Room Air BMI result Body Mass Index 54.0 Const Other: Patient looking older than stated age Nutritional Appearance: average body habitus Orientation/consciousness: oriented to person and patient oriented x3 Limitations: no limitations HENMT Head: Yes normal to inspection Ears: external ears normal General nose exam: Normal external nose present Mouth: Normal oral and palatal mucosa present and oropharynx normal Throat: Yes posterior oropharynx normal Eyes General: appearance normal, both eyes and all related structures Neck Neck: Yes normal visual inspection Chest Chest palpation & inspection: normal inspection of the chest Resp Auscultation: clear to auscultation bilaterally Cardio Jugular venous distension: no JVD Rate: regular rate Rhythm: regular rhythm Heart sounds: S1 normal heart sound present and S2 normal heart sound present GI Inspection: Yes normal to inspection Palpation (GI): Soft to palpation, nontender and No hepatosplenomegaly present Auscultation: normal bowel sounds General: Yes no CVA tenderness Back/Spine/Pelvis Back: no CVA tenderness Skin Other: scratches to ankle and feet with some erythema and some redness, no pus Neuro General: oriented to person and patient oriented x3 Cranial nerves: Yes CN's II-XII intact bilaterally Motor exam (neuro): 5/5 motor strength present throughout Sensory Exam: No Sensory deficit (Neuro) Extrem Other: see skin exam General: Yes normal to inspection Psych Appearance: grossly normal Course Reevaluation(s) Reevaluation #1: patient with early cellulitis secondary to cat bit will dc home on augmentin Time: 05:16 Medical Decision Making Differential Diagnosis Differential Diagnoses: The differential diagnosis associated with the presentation includes (cellulitis, cat bite, abscess) Admission/Observation Consideration of admission/observation: Escalation of care including admission/observation considered (upon arrival patient was considered for admission) Lab Data 11/30/23 04:18 11/30/23 04:18 Labs: Lab Results 11/30/23 Range/Units 04:18 WBC 13.1 H (4.8-10.8) X10*3/uL RBC 3.85 L D (4.20-5.50) X10*6/uL Hgb 11.7 L D (12.0-16.0) g/dl Hct 34.5 L D (37.0-47.0) % MCV 89.6 (80.0-98.0) fL MCH 30.4 (27.0-33.0) pg MCHC 33.9 (31.0-35.0) g/dl RDW 12.6 (11.0-16.0) % Plt Count 183 D (160-400) X10*3/uL MPV 11.0 (9.4-12.3) fL Absolute Nucleated RBC 0.000 (0.0-0.012) X10*3/uL Nucleated RBC % (auto) 0.0 (0.0-0.2) /100WBC Sodium 140 (135-145) mmol/L Potassium 3.1 L (3.3-5.1) mmol/L Chloride 104 (96-108) mmol/L Carbon Dioxide 26 (22-29) mmol/L Anion Gap 13 (12-20) BUN 6 L (9-16) mg/dL Creatinine 0.80 (0.5-1.4) mg/dL Estim Creat Clear Calc 105.0 Estimated GFR > 60 Random Glucose 202 H (60-115) mg/dL Calcium 9.4 D (8.4-10.2) mg/dL Independent Historian Clinical information obtained from an independent historian. History obtained from or confirmed by: Spouse Chronic Conditions Patient?s care impacted by: Cancer Social Determinants Patient?s care significantly limited by Social Determinants of Health including: Low income Discharge Plan Discharge Clinical Impression: Cat bite, Cellulitis Patient Disposition: Home, Self-Care Instructions: Animal Bite (ED), Cellulitis (ED) Prescriptions: New amoxicillin-pot clavulanate 875-125 mg tablet 1 tab PO Q12H Qty: 20 0RF No Action (DME) FreeStyle Lite Strips Strip See Rx Instructions .MEDSUPPLY Qty: 150 6RF Rx Instructions: 4 times a day ondansetron 4 mg tablet,disintegrating 4 mg PO Q8H PRN (Reason: nausea and vomiting) Qty: 30 0RF clonidine HCl 0.1 mg tablet 0.1 mg PO TID levetiracetam 500 mg tablet 500 mg PO BID Qty: 180 1RF cholecalciferol (vitamin D3) [Vitamin D3] 25 mcg (1,000 unit) Tablet 25 mcg PO DAILY biotin 5,000 mcg Tablet, Sublingual 5,000 mcg SUBLINGUAL DAILY Xanax tablet 1 mg PO TID fluoxetine 40 mg capsule 80 mg PO DAILY@1500 hydroxyzine HCl 50 mg tablet 50 mg PO BID scopolamine base 1 mg over 3 days patch 3 day 1 patch TRANSDERMAL Q3D PRN (Reason: Nausea) omeprazole 20 mg capsule,delayed release(DR/EC) 20 mg PO QAM metronidazole 500 mg tablet 500 mg PO Q8H Qty: 9 0RF metformin 500 mg tablet 500 mg PO DAILY Qty: 30 0RF zolpidem 10 mg tablet 10 mg PO BEDTIME sumatriptan succinate 100 mg tablet 100 mg PO DAILY MRX1 PRN (Reason: migraine) Referrals: Sharifa Gamble MD [Primary Care Provider] - 3 days Print Language: Samoan
[2023-11-30] MEDS: diphenhydrAMINE HCL 25 MG CAPSULE 50 MG PO (05:28)
[2023-11-30] MEDS: Ketorolac Tromethamine 60 MG/2 ML VIAL IM (05:28)
[2023-11-30] MEDS: Amoxicillin/Potassium Clav 875 MG TABLET PO (05:28)
[2023-11-30 05:40] VITALS: BP 171/95; PULSE 88; RESP 16; TEMP 36.7; O2SAT 99
[2023-11-30 06:09] VITALS: BP 171/95; PULSE 88; RESP 16; TEMP 36.7; O2SAT 99
== END 2023-11-30 06:12 | disposition home or self-care (01) ==
PROVIDERS: Emergency Provider Emergency Medicine; PCP Internal Medicine
DX: L03.116 Cellulitis of left lower limb (principal); L03.115 Cellulitis of right lower limb; S81.852A Open bite, left lower leg, initial encounter; S81.851A Open bite, right lower leg, initial encounter; W55.01XA Bitten by cat, initial encounter; Y93.9 Activity, unspecified; Y92.039 Unspecified place in apartment as the place of occurrence of the external cause; Y99.9 Unspecified external cause status
CPT/HCPCS: 36415; 80048; 85027; 96372; 99284; J1885

== ENCOUNTER 2023-12-05 00:59 | Emergency (ER) | payer OTHER, SELFPAY | END 2023-12-05 02:55 | disposition home or self-care (01) | PROVIDERS: Emergency Provider Emergency Medicine; PCP Internal Medicine | DX: M79.671 Pain in right foot (principal) | CPT/HCPCS: 99283 ==

== ENCOUNTER 2023-12-13 15:43 | Inpatient (IN) | payer OTHER, SELFPAY ==
[2023-12-13] VITALS (31 sets, daily range): BP systolic 50–182; BP diastolic 29–119; PULSE 77–114; RESP 14–18; TEMP 20.9–36.3; O2SAT 94–100; BMI 24.2; BMI 27.7
--- NOTE | ~2023-12-13 | US_ITS ---
EXAMINATION: US NONINVASIVE ASSESSMENT OF THE RIGHT LOWER EXTREMITY CLINICAL INFORMATION: Numbness COMPARISON: None available. TECHNIQUE: Duplex Doppler techniques with waveform analysis and measurement of velocities in the common femoral, profunda femoris, superficial femoral, popliteal and tibial arteries were performed. The study was performed only at rest. FINDINGS: RIGHT LEG: Common femoral artery: 140 cm/s, phasicity: Triphasic Profunda femoris artery: 70 cm/s, phasicity: Triphasic Superficial femoral artery (proximal): 97 cm/s, phasicity: Triphasic Superficial femoral artery (mid): 79 cm/s, phasicity: Triphasic Superficial femoral artery (distal): 94 cm/s, phasicity: Triphasic Popliteal artery: 115 cm/s, phasicity: Triphasic Posterior tibial artery: 80 cm/s, phasicity: Biphasic Peroneal artery: 60 cm/s, phasicity: Biphasic Anterior tibial artery: 97 cm/s, phasicity: Biphasic Dorsalis pedis artery: 159 cm/s, phasicity:Biphasic US/US arterial duplex LE RT IMPRESSION: No evidence of hemodynamically significant stenosis in the right lower extremity arteries. However, there are dampened waveforms in the below the knee arteries. Electronically signed by: Kim Chakraborty MD 12/15/2023 04:10 PM EDT
--- NOTE | ~2023-12-13 | XR_ITS ---
EXAMINATION: XR FEMUR, RIGHT CLINICAL INFORMATION: Pain status post fall COMPARISON: None available. TECHNIQUE: AP and lateral views of the right femur were obtained. FINDINGS: The bones and soft tissues are normal. No fracture. No osseous lesions. XR/XR femur RT 1V IMPRESSION: Normal right femur. Electronically signed by: Kim Chakraborty MD 12/15/2023 12:18 PM EDT
--- NOTE | ~2023-12-13 | CT_ITS ---
EXAMINATION: CT HEAD WITHOUT CONTRAST CT CERVICAL SPINE WITHOUT CONTRAST CLINICAL INFORMATION: Fall with blunt head and neck trauma COMPARISON: 05/12/2023 TECHNIQUE: Contiguous axial imaging was performed from the skull base to vertex without intravenous administration of contrast. In addition, helical noncontrast CT imaging was acquired through the cervical spine and source images were reviewed along with axial reconstructions and sagittal and coronal MPRs. All CT exams at this location are performed using dose optimization techniques as appropriate to a performed exam including at least one of the following: * Automated exposure control * Adjustment of the mA and/or kV according to patient size (this includes techniques or standardized protocols for targeted exams where dose is matched to indication / reason for exam; i/e/ extremities or head) * Use of iterative reconstructive technique DLP: 583.81 mGy-cm for the head CT 282.11 mGy-cm or the cervical spine CT FINDINGS: HEAD: Small right frontal superficial scalp hematoma. No intracranial mass, hemorrhage, or midline shift is visualized. The ventricles and sulci are age-appropriate. No extra-axial collections are identified. The paranasal sinuses are well aerated. CERVICAL SPINE: There is no evidence of acute cervical spine fracture. Vertebral body height and alignment is well maintained. No pre- or paravertebral soft tissue abnormality is identified. Disc spaces and facet joints are well maintained. Limited assessment of the lung apices demonstrates emphysematous changes. Endotracheal tube and enteric tube partially visualized. CT/CT cervical spine wo IV con IMPRESSION: 1. No acute intracranial pathology. Small right frontal superficial scalp hematoma. 2. No CT evidence of acute cervical spine fracture or traumatic subluxation. Electronically signed by: Lj Crowder MD 12/13/2023 08:00 PM EDT
--- NOTE | ~2023-12-13 | XR_ITS ---
EXAMINATION: XR CHEST CLINICAL INFORMATION: Central line and enteric tube placement. COMPARISON: Chest radiograph 12/13/2023. TECHNIQUE: Frontal view of the chest was obtained. FINDINGS: The endotracheal tube terminates at 3 cm above the ace. An enteric tube courses into the abdomen and terminates outside of the field of view. Right IJ CVC tip projects over the expected location of the right atrium. Stable cardiomediastinal silhouette. No focal consolidation, pleural effusion or pneumothorax. Unchanged mild biapical subpleural thickening. No acute osseous findings. Right upper quadrant surgical clips. XR/XR chest 1V IMPRESSION: 1. The endotracheal tube terminates at 3 cm above the ace. 2. Right IJ CVC tip projects over the expected location of the right atrium. 3. Enteric tube courses into the abdomen and terminates outside of the field of view. 4. No acute cardiopulmonary findings. Electronically signed by: Xochitl Hicks MD 12/14/2023 12:53 AM EDT
--- NOTE | ~2023-12-13 | XR_ITS ---
EXAMINATION: XR CHEST CLINICAL INFORMATION: Postintubation. COMPARISON: Chest radiograph dated February 16, 2023. TECHNIQUE: Frontal view of the chest was obtained. FINDINGS: The endotracheal tube terminates 3.4 cm above the ace. The enteric tube terminates within the distal esophagus. It should be advanced. The heart is normal in size. The lungs are clear. No large pleural effusion. No pneumothorax. No acute osseous abnormality. XR/XR chest 1V IMPRESSION: The endotracheal tube terminates 3.4 cm above the ace. The enteric tube terminates over the distal esophagus. It should be advanced. No consolidation. No pneumothorax or pleural effusion. Electronically signed by: Steve Parmar DO 12/13/2023 06:37 PM EDT
--- NOTE | ~2023-12-13 | CT_ITS ---
EXAMINATION: CT HEAD WITHOUT CONTRAST CT CERVICAL SPINE WITHOUT CONTRAST CLINICAL INFORMATION: Fall with blunt head and neck trauma COMPARISON: 05/12/2023 TECHNIQUE: Contiguous axial imaging was performed from the skull base to vertex without intravenous administration of contrast. In addition, helical noncontrast CT imaging was acquired through the cervical spine and source images were reviewed along with axial reconstructions and sagittal and coronal MPRs. All CT exams at this location are performed using dose optimization techniques as appropriate to a performed exam including at least one of the following: * Automated exposure control * Adjustment of the mA and/or kV according to patient size (this includes techniques or standardized protocols for targeted exams where dose is matched to indication / reason for exam; i/e/ extremities or head) * Use of iterative reconstructive technique DLP: 583.81 mGy-cm for the head CT 282.11 mGy-cm or the cervical spine CT FINDINGS: HEAD: Small right frontal superficial scalp hematoma. No intracranial mass, hemorrhage, or midline shift is visualized. The ventricles and sulci are age-appropriate. No extra-axial collections are identified. The paranasal sinuses are well aerated. CERVICAL SPINE: There is no evidence of acute cervical spine fracture. Vertebral body height and alignment is well maintained. No pre- or paravertebral soft tissue abnormality is identified. Disc spaces and facet joints are well maintained. Limited assessment of the lung apices demonstrates emphysematous changes. Endotracheal tube and enteric tube partially visualized. CT/CT head/brain wo IV con IMPRESSION: 1. No acute intracranial pathology. Small right frontal superficial scalp hematoma. 2. No CT evidence of acute cervical spine fracture or traumatic subluxation. Electronically signed by: Lj Crowder MD 12/13/2023 08:00 PM EDT
--- NOTE | ~2023-12-13 | US_ITS ---
EXAMINATION: US ABDOMEN COMPLETE CLINICAL INFORMATION: Transaminitis and pancreatitis. COMPARISON: CT abdomen and pelvis 12/13/2023. X-ray abdomen KUB 07/20/2020 and 07/19/2020. Ultrasound abdomen complete 09/01/2019 and 05/07/2019. TECHNIQUE: Real-time imaging of the abdominal viscera. FINDINGS: PANCREAS: The visualized pancreas appears unremarkable but the pancreatic tail is obscured by bowel gas. ABDOMINAL AORTA: Atherosclerotic changes are present aorta without evidence of aneurysm INFERIOR VENA CAVA: Visualized portions are normal. LIVER: The liver is normal in size. The liver contour is normal. There is diffuse increased liver parenchymal echogenicity, consistent with hepatic steatosis. No focal hepatic lesion. There is no intrahepatic biliary duct dilatation seen. GALLBLADDER: Surgically absent. COMMON BILE DUCT: Normal in caliber measuring 0.7 cm in diameter. RIGHT KIDNEY: Poor visualization of the lower pole. No hydronephrosis. No renal calculi or focal parenchymal lesions. The kidney measures 10.0 cm in maximum dimension. LEFT KIDNEY: Limited visualization No hydronephrosis. No renal calculi or focal parenchymal lesions. The kidney measures 9.4 cm in maximum dimension. SPLEEN: Normal. The spleen measures 9.6 cm in maximum dimension. FREE FLUID: Small amount of ascites seen in the right upper quadrant US/US abdomen complete IMPRESSION: 1. Hepatic steatosis. 2. Small amount of ascites. Electronically signed by: Carroll Looney MD 12/16/2023 10:52 PM EDT
--- NOTE | ~2023-12-13 | CT_ITS ---
EXAMINATION: CT ABDOMEN AND PELVIS WITH CONTRAST CLINICAL INFORMATION: Vomiting blood COMPARISON: CT abdomen and pelvis 11/21/2023 TECHNIQUE: Multidetector volumetric images were obtained from the superior aspect of the liver through the pubic symphysis following administration 85 mL of Omnipaque 350 intravenous contrast. Sagittal and coronal reformatted images were obtained on the technologist's workstation. Oral contrast: No This CT examination was performed using dose optimization techniques as appropriate, variously including the following: *Automated exposure control *Adjustment of mA and/or kV according to patient size (this includes techniques or standardized protocols for targeted exams where dose is matched to indication/reason for exam; i.e. extremities or head) *Use of iterative reconstruction technique DLP: 540 mGy-cm FINDINGS: LUNG BASES: The visualized lung bases are unremarkable. There is mild bibasilar atelectasis. LIVER, GALLBLADDER, AND BILIARY TREE: The liver is normal in size, shape, and attenuation. No focal hepatic lesion or biliary ductal dilatation is present. Status post cholecystectomy. There is mild periportal edema PANCREAS: Peripancreatic fluid is seen. Small amount of fluid is present in the anterior left pararenal space. There is no free fluid in the pelvis. No pancreatic duct dilatation is seen. No pancreatic calcifications. There is fairly homogeneous attenuation of the pancreatic parenchyma without areas of necrosis seen. The findings are consistent with acute pancreatitis. Please correlate with serum lipase. SPLEEN: Unremarkable. ADRENAL GLANDS: Unremarkable. KIDNEYS AND URETERS: The kidneys are normal in size, shape, and attenuation. No hydronephrosis, hydroureter, or calculi seen. No perinephric stranding. BLADDER: Garrett catheter is present in the bladder which also contains air. GASTROINTESTINAL TRACT: An NG tube has its tip just above the GE junction in the distal esophagus and should be advanced. The abnormal small bowel with hyperreninemia and edema seen previously has resolved and is no longer present. The small bowel now appears normal. There is some mild mucosal thickening involving the rectosigmoid. The remainder of the colon is unremarkable. The appendix is normal. ABDOMINAL WALL: No significant hernia is appreciated. LYMPH NODES: No retroperitoneal lymphadenopathy. VASCULAR: The aorta and iliofemoral vessels appear normal. There is gross brisk reflux present in both ovarian veins which are dilated with moderate pelvic varices present. The celiac and SMA are patent. No mesenteric pseudoaneurysms are seen. The SAJAN is tiny and barely visible. PELVIC VISCERA: The uterus is not seen. An abnormal adnexal mass is not detected. No free intraperitoneal fluid is present. The free pelvic fluid seen at the time of the prior study is no longer present. OSSEOUS STRUCTURES: No acute osseous finding. Mild degenerative changes are present in the spine. CT/CT abdomen pelvis w IV con IMPRESSION: 1. Acute pancreatitis. Please correlate with serum lipase. 2. The abnormal small bowel seen previously has resolved. 3. There is some mild mucosal thickening involving the rectosigmoid. 4. NG tube has its tip just above the GE junction and should be advanced. 5. Other incidental findings as described above. Fleischner guidelines were followed. Electronically signed by: Carroll Looney MD 12/13/2023 08:24 PM EDT
[2023-12-13] MEDS: Midazolam HCl/PF 2 MG/2 ML VIAL IM (15:40)
[2023-12-13] MEDS: Ketamine HCl/NS 50 MG/5 ML SYRINGE 100 MG IVPUSH (15:53)
[2023-12-13] MEDS: Rocuronium Bromide 50 MG/5 ML VIAL 100 MG IVPUSH (15:53)
--- NOTE | 2023-12-13 15:58 | ECG_ITS ---
Test Reason : [facility] Blood Pressure : / mmHG Vent. Rate : 105 BPM Atrial Rate : 105 BPM P-R Int : 144 ms QRS Dur : 104 ms QT Int : 414 ms P-R-T Axes : 080 056 030 degrees QTc Int : 547 ms Sinus tachycardia Possible Left atrial enlargement Nonspecific ST abnormality Prolonged QT Abnormal ECG When compared with ECG of 16-FEB-2023 01:14, Heart rate has increased QT has lengthened Nonspecific ST abnormality is now Present Referred By: aJcobo Valle Electronically Signed By:JONATHAN BOWER
[2023-12-13 16:00] LABS: Glucose, Whole Blood > 600 mg/dL (60-115)
--- NOTE | 2023-12-13 16:01 | ED_ITS ---
HPI - SOB/Dyspnea General Chief Complaint: General Medical Stated Complaint: UNRESPONSIVE Time Seen by Provider: 12/13/23 15:58 Source: patient and EMS Mode of arrival: EMS Limitations: no limitations History of Present Illness HPI Narrative: 58-year-old female presents to the ER via EMS patient came in as a code we had approximately 1 minute before they arrived patient had an I gel airway and but her eyes were open. She was clamping down on the I- gel and had emesis all over her face dark coffee-ground emesis patient home medications are significant for scopolamine hydroxyzine fluoxetine Xanax and medications for seizures as well as migraines patient found to have elevated glucose on arrival the patient had an IGel in place but her eyes were open we removed the I gel patient did get slightly more awake she kept on asking where she was we would explain it to her and then she would ask again patient still not protecting airway nose decision was made to intubate the patient there was [address] interosseous line on the right leg which was unsuccessful left intraosseous line while successful. We will give the patient fentanyl and 4 of Versed IM to leg. Patient was able to get IV established and we intubated with rocuronium and ketamine. We will start the patient propofol patient did have little bit of salt pressure Levophed was started MD elicited complaint: shortness of breath Related Data Home Medications ?Medication ?Instructions ?Recorded ?Confirmed clonidine HCl 0.1 mg tablet 0.1 mg PO TID 12/17/19 11/22/23 zolpidem 10 mg tablet 10 mg PO BEDTIME Sleep 03/08/20 11/22/23 biotin 5,000 mcg sublingual tablet 5,000 mcg sublingual DAILY 02/10/21 11/22/23 cholecalciferol (vitamin D3) 25 25 mcg PO DAILY 02/10/21 11/22/23 mcg (1,000 unit) tablet (Vitamin D3) sumatriptan succinate 100 mg tablet 100 mg PO DAILY MRX1 PRN migraine 11/01/21 11/22/23 fluoxetine 40 mg capsule 80 mg PO DAILY@1500 depressive 11/22/23 11/22/23 disorder hydroxyzine HCl 50 mg tablet 50 mg PO BID anxiety 11/22/23 11/22/23 omeprazole 20 mg capsule,delayed 20 mg PO QAM 11/22/23 11/22/23 release scopolamine base 1 mg over 3 days 1 patch transdermal Q3D PRN Nausea 11/22/23 11/22/23 transdermal patch alprazolam 1 mg tablet 1 mg PO TID PRN anxiety 12/13/23 cephalexin 500 mg capsule 500 mg PO QID 12/13/23 doxycycline hyclate 100 mg tablet 100 mg PO BID 12/13/23 Previous Rx's ?Medication ?Instructions ?Recorded blood sugar diagnostic (FreeStyle #150 ea 07/21/20 Lite Strips) levetiracetam 500 mg tablet 500 mg PO BID #180 tabs 12/20/21 metformin 500 mg tablet 500 mg PO DAILY #30 tabs 11/24/23 metronidazole 500 mg tablet 500 mg PO Q8H #9 tabs 11/24/23 ondansetron 4 mg disintegrating 4 mg PO Q8H PRN nausea and 11/27/23 tablet vomiting #30 tabs Allergies Allergy/AdvReac Type Severity Reaction Status Date / Time acetaminophen [Tylenol] AdvReac Unknown Abdominal Verified 12/13/23 15:56 Pain ibuprofen AdvReac Unknown Abdominal Verified 12/13/23 15:56 Pain Review of Systems 2 Review of Systems: Unable to obtain due to altered mental status [facility] Past Medical History Medical History Pulmonary nodule Diabetes type 2, uncontrolled Colitis Opioid use disorder Arthritis Fibromyalgia History of lung cancer Multinodular goiter Adrenal insufficiency due to cancer therapy Newly diagnosed diabetes Subclinical hyperthyroidism Pancreatitis (~02/2018) Radiation-induced esophagitis Hypothyroidism Depression Opioid abuse Asthma COPD (chronic obstructive pulmonary disease) Aftercare following left shoulder joint replacement surgery Non-small cell carcinoma of left lung, stage 4 Surgical History History of esophagogastroduodenoscopy (EGD) (~09/04/19) History of cholecystectomy (~12/02/08) History of endometrial ablation (~07/25/06) History of esophageal dilatation (~02/24/18) Hx of shoulder surgery (~2014) Hx of blepharoplasty (~2018) History of Family History Family History Father Pancreatic cancer Mother Diabetes Skin cancer Rheumatoid arthritis Brother Diabetes Sister Diabetes Other History of thyroid disorder Social History Social History Household Members: Spouse Housing: Apartment Do you presently have visiting nurse or other home services: Yes ([employer]) Alcohol intake: current Alcohol intake frequency: a few times a week Alcohol type: wine Comment: refuses bed alarm Patient Tobacco Use Status: Tobacco use Unknown Tobacco use type: Cigarette Cigarettes Per Day: 4 Years Smoked: 30 Second Hand Smoke Exposure: No Advance Directives: Yes Advance Directives on File: Yes Advance Directives Date on File: 05/12/20 service: No Current occupational status: unemployed and disabled Physical Exam 2 Vital Signs: Vital Signs: Last Vital Signs Temp 92.3 F L 12/13/23 18:30 Pulse 83 12/13/23 19:50 Resp 16 12/13/23 19:50 BP 98/66 12/13/23 19:50 Pulse Ox 99 12/13/23 19:50 O2 Del Method Mechanical Ventil ation 12/13/23 19:50 FiO2 25 12/13/23 19:34 BMI result Body Mass Index 24.2 General: Ill-appearing with emesis Maynor face and shirt and pants HEENT: Normocephalic atraumatic Neck: No signs of JVD, no masses no tenderness or lymphadenopathy Cardiovascular: Regular rate and rhythm Respiratory: Rhonchi bilaterally Abdomen: Soft nontender no masses Extremities: Normal pedal pulses 1+ edema bilaterally lower extremity Skin: Dry warm no rashes Back: No tenderness full ROM Course Course Course Narrative: Patient signed out to Dr. Harris pending CT, labsand disposition Medications Administered Generic Name Dose Route Start Last Admin Trade Name Freq PRN Reason Stop Dose Admin Propofol 1,000 mg in 100 mls @ 0 mls/hr 12/13/23 16:15 12/13/23 18:36 Diprivan IVCONT 15 mcg/kg/min .Q0M SHABANA 5.39 mls/hr Titration Protocol Per Protocol Insulin Human Regular 100 unit in 100 mls @ 6 mls/hr 12/13/23 16:30 12/13/23 18:03 Myxredlin IVCONT 3 unit/hr .[id number] SHABANA 3 mls/hr Titration Protocol 6 UNIT/HR Potassium Chloride 10 meq in 100 mls @ 100 mls/hr 12/13/23 20:30 12/13/23 20:44 Potassium Chloride/H20 IV 12/14/23 00:29 100 mls/hr Q1H SHABANA Administration Discontinued Medications Generic Name Dose Route Start Last Admin Trade Name Dustin PRN Reason Stop Dose Admin Calcium Chloride 1 gm 12/13/23 20:30 12/13/23 20:38 Calcium Chloride 1 Gm/10 Ml Syringe IVPUSH 12/13/23 20:31 1 gm STAT STA Administration Fentanyl 50 mcg 12/13/23 16:48 12/13/23 16:51 Fentanyl Citrate/Pf 100 Mcg/2 Ml Vial IVPUSH 12/13/23 16:49 50 mcg ONCE ONE Administration Protocol Sodium Chloride 1,000 mls @ 999 mls/hr 12/13/23 16:00 12/13/23 17:30 Ns IV 12/13/23 17:00 Infused .Q1H1M SHABANA Infusion Lactated Ringer's 1,000 mls @ 999 mls/hr 12/13/23 16:00 12/13/23 17:30 Lr IV 12/13/23 17:00 Infused .Q1H1M SHABANA Infusion Sodium Chloride 1,000 mls @ 999 mls/hr 12/13/23 16:30 12/13/23 17:30 Ns IV 12/13/23 17:30 Infused .Q1H1M SHABANA Infusion Piperacillin Sod/Tazobactam 50 mls @ 100 mls/hr 12/13/23 16:38 12/13/23 17:30 Sod 3.375 gm/ Sodium Chloride IV 12/13/23 17:07 100 mls/hr ONCE ONE Administration Insulin Human Regular 14 unit 12/13/23 16:22 12/13/23 16:28 Insulin Regular, Human 100 Unit/Ml 10 Ml Vial IVPUSH 12/13/23 16:23 14 unit ONCE ONE Administration Iohexol 85 ml 12/13/23 18:09 12/13/23 18:10 Iohexol 350 Mg/Ml 100 Ml Infus..Btl IV 12/13/23 18:10 85 ml ONCE ONE Administration Ketamine HCl 100 mg 12/13/23 16:07 12/13/23 15:53 Ketamine Hcl/Ns 50 Mg/5 Ml Syringe IVPUSH 12/13/23 16:08 100 mg NOW STA Administration Midazolam HCl 2 mg 12/13/23 16:48 12/13/23 15:40 Midazolam Hcl/Pf 2 Mg/2 Ml Vial IM 12/13/23 16:49 2 mg ONCE ONE Administration Ondansetron HCl 4 mg 12/13/23 15:59 12/13/23 16:28 Ondansetron Hcl 4 Mg/2 Ml Vial IVPUSH 12/13/23 16:00 4 mg ONCE ONE Administration Rocuronium [place] 100 mg 12/13/23 16:07 12/13/23 15:53 Rocuronium [place] 50 Mg/5 Ml Vial IVPUSH 12/13/23 16:08 100 mg ONCE ONE Administration Medical Decision Making Medical Decision Making [facility] Narrative: Patient intubated I will leave the patient on drip I will send the patient for a CT scan of the head and neck abdomen and get a chest x-ray I will scan her as well as get a workup for DKA and send off an ammonia levels the patient has altered. Patient is seen and HPI reviewed patient came here for altered mental status with vomiting difficulty in protecting airway with history of laryngeal cancer and lung cancer been intubated on ventilator noticed to have high lipase and high glucose level without ketoacidosis CT scan of the abdomen showed significant pancreatic inflammation without necrosis or free fluid small fluid was seen of the anterior left pararenal space. Patient is started on insulin drip was given fluids was given antibiotics Zosyn. Patient has had elevated WBC count and lactic acid possible from pancreatic inflammation/hypoxia admit to ICU case discussed Dr. Mauricio knitting inspector Differential Diagnosis Differential Diagnoses: The differential diagnosis associated with the presentation includes Respiratory distress overdose vomiting blood GI bleed dehydration electrolyte abnormality anemia pneumonia likely aspiration hypothermia Lab Data [facility] Lab Attestation statement: I reviewed the patient's lab results. 12/13/23 16:02 12/13/23 19:59 Labs: Lab Results 12/13/23 12/13/23 12/13/23 Range/Units 15:54 16:02 16:03 WBC 25.7 H (4.8-10.8) X10*3/uL RBC 4.26 (4.20-5.50) X10*6/uL Hgb 12.8 (12.0-16.0) g/dl Hct 41.4 (37.0-47.0) % MCV 97.2 (80.0-98.0) fL MCH 30.0 (27.0-33.0) pg MCHC 30.9 L (31.0-35.0) g/dl RDW 12.4 (11.0-16.0) % Plt Count 292 D (160-400) X10*3/uL MPV 11.9 (9.4-12.3) fL Immature Gran % (Auto) Cancelled Neut % (Auto) Cancelled Lymph % (Auto) Cancelled [place] % (Auto) Cancelled Eos % (Auto) Cancelled Baso % (Auto) Cancelled Lymph # (Auto) Cancelled [place] # (Auto) Cancelled Eos # (Auto) Cancelled Baso # (Auto) Cancelled Abs Immat Gran (auto) Cancelled Absolute Neuts (auto) Cancelled Absolute Nucleated RBC 0.020 H (0.0-0.012) X10*3/uL Nucleated RBC % (auto) 0.1 (0.0-0.2) /100WBC Neutrophils % (Manual) 81 H (45-73) % Band Neutrophils % 6 H (3-5) % Lymphocytes % (Manual) 5 L (20-40) % Monocytes % (Manual) 8 (2-11) % Abs Neuts (Manual) 22.4 H (2.0-8.3) X10*3/uL Lymphocytes # (Manual) 1.3 (1.2-4.9) X10*3/uL Monocytes # (Manual) 2.1 H (0.1-1.2) X10*3/uL Platelet Estimate NORMAL (NORMAL) Plt Morphology Comment NORMAL RBC Morphology NORMAL Smear Tech's Comments MANUAL DIFF PT 12.7 H (10.9-12.4) SEC INR 1.1 (0.9-1.1) APTT 28.8 (26.0-36.8) SEC O2 Saturation % ABG pH at Pt Temp (7.35-7.45) ABG pCO2 at Pt Temp (32-45) mmHg ABG pO2 at Pt Temp (83-108) mmHg ABG HCO3 (22-26) mmol/L ABG Base Excess (Actual) mmol/L VBG pH (7.32-7.43) VBG pCO2 mmHg VBG pO2 mmHg VBG HCO3 (22-26) mmol/L VBG O2 Saturation % VBG Base Excess mmol/L Sodium 141 (135-145) mmol/L Potassium 4.0 D (3.3-5.1) mmol/L Chloride 95 L (96-108) mmol/L Carbon Dioxide 29 (22-29) mmol/L Anion Gap 21 H (12-20) BUN 8 L (9-16) mg/dL Creatinine 1.74 H (0.5-1.4) mg/dL Estim Creat Clear Calc 27.8 Estimated GFR 30 POC Glucose > 600 H* (60-115) mg/dL Random Glucose 779 H* (60-115) mg/dL Lactic Acid 10.1 H* (0.5-2.0) mmol/L Lactic Acid F/U @ 2Hr (0.5-2.0) mmol/L Calcium 8.6 D (8.4-10.2) mg/dL Magnesium 2.2 (1.6-2.6) mg/dL Total Bilirubin 0.1 (0.0-1.0) mg/dL Direct Bilirubin < 0.2 (0.0-0.5) mg/dL AST 33 H (5-31) U/L ALT 19 (0-31) U/L Alkaline Phosphatase 121 H (39-117) U/L Ammonia (13-55) umol/L Total Creatine Kinase 2540 H (26-140) U/L Total Protein 7.3 (6.5-8.0) g/dL Albumin 4.0 (3.5-5.0) g/dL Lipase 353 H (8-78) U/L Beta-Hydroxybutyrate 0.07 (0.02-0.27) mmol/L Urine Color Urine Appearance Urine pH (5.0-9.0) Ur Specific Lena (1.005-1.025) Urine Protein (Neg-Trace) mg/dL Urine Glucose (UA) (Negative) mg/dL Urine Ketones (Negative) mg/dL Urine Blood (Negative) Urine Nitrite (Negative) Ur Leukocyte Esterase (Negative) Urine RBC (0-2) /HPF Urine WBC (0-5) /HPF Ur Squamous Epith Cells (0-2) /HPF Urine Bacteria (None Seen) Hyaline Casts (0-2) /LPF Granular Casts Urine Opiates Screen (Not Detect) Ur Buprenorphine Scrn (Not Detect) ng/mL Ur Oxycodone Screen (Not Detect) ng/mL Urine Methadone Screen (Not Detect) ng/mL Urine Fentanyl Screen (Not Detect) Ur Barbiturates Screen (Not Detect) Ur Phencyclidine Scrn (Not Detect) Ur Amphetamines Screen (Not Detect) U Benzodiazepines Scrn (Not Detect) Urine Cocaine Screen (Not Detect) U Marijuana (THC) Screen (Not Detect) Ethyl Alcohol < 10 mg/dL Influenza Type A (PCR) (Negative) Influenza Type B (PCR) (Negative) RSV RNA Qual (PCR) (Negative) SARS-CoV-2 RNA (RT-PCR) (Negative) Blood Type O Negative Antibody Screen NEGATIVE 12/13/23 12/13/23 12/13/23 Range/Units 16:13 16:19 16:27 WBC (4.8-10.8) X10*3/uL RBC (4.20-5.50) X10*6/uL Hgb (12.0-16.0) g/dl Hct (37.0-47.0) % MCV (80.0-98.0) fL MCH (27.0-33.0) pg MCHC (31.0-35.0) g/dl RDW (11.0-16.0) % Plt Count (160-400) X10*3/uL MPV (9.4-12.3) fL Immature Gran % (Auto) Neut % (Auto) Lymph % (Auto) [place] % (Auto) Eos % (Auto) Baso % (Auto) Lymph # (Auto) [place] # (Auto) Eos # (Auto) Baso # (Auto) Abs Immat Gran (auto) Absolute Neuts (auto) Absolute Nucleated RBC (0.0-0.012) X10*3/uL Nucleated RBC % (auto) (0.0-0.2) /100WBC Neutrophils % (Manual) (45-73) % Band Neutrophils % (3-5) % Lymphocytes % (Manual) (20-40) % Monocytes % (Manual) (2-11) % Abs Neuts (Manual) (2.0-8.3) X10*3/uL Lymphocytes # (Manual) (1.2-4.9) X10*3/uL Monocytes # (Manual) (0.1-1.2) X10*3/uL Platelet Estimate (NORMAL) Plt Morphology Comment RBC Morphology Smear Tech's Comments PT (10.9-12.4) SEC INR (0.9-1.1) APTT (26.0-36.8) SEC O2 Saturation % ABG pH at Pt Temp (7.35-7.45) ABG pCO2 at Pt Temp (32-45) mmHg ABG pO2 at Pt Temp (83-108) mmHg ABG HCO3 (22-26) mmol/L ABG Base Excess (Actual) mmol/L VBG pH 7.05 L* (7.32-7.43) VBG pCO2 93 mmHg VBG pO2 38 mmHg VBG HCO3 26 (22-26) mmol/L VBG O2 Saturation 47.0 % VBG Base Excess -6.5 mmol/L Sodium (135-145) mmol/L Potassium (3.3-5.1) mmol/L Chloride (96-108) mmol/L Carbon Dioxide (22-29) mmol/L Anion Gap (12-20) BUN (9-16) mg/dL Creatinine (0.5-1.4) mg/dL Estim Creat Clear Calc Estimated GFR POC Glucose (60-115) mg/dL Random Glucose (60-115) mg/dL Lactic Acid (0.5-2.0) mmol/L Lactic Acid F/U @ 2Hr (0.5-2.0) mmol/L Calcium (8.4-10.2) mg/dL Magnesium (1.6-2.6) mg/dL Total Bilirubin (0.0-1.0) mg/dL Direct Bilirubin (0.0-0.5) mg/dL AST (5-31) U/L ALT (0-31) U/L Alkaline Phosphatase (39-117) U/L Ammonia (13-55) umol/L Total Creatine Kinase (26-140) U/L Total Protein (6.5-8.0) g/dL Albumin (3.5-5.0) g/dL Lipase (8-78) U/L Beta-Hydroxybutyrate (0.02-0.27) mmol/L Urine Color Yellow Urine Appearance Clear Urine pH 5.0 (5.0-9.0) Ur Specific Lena 1.020 (1.005-1.025) Urine Protein 30 (1+) H (Neg-Trace) mg/dL Urine Glucose (UA) >=1000 H (Negative) mg/dL Urine Ketones Negative (Negative) mg/dL Urine Blood Large (3+) H (Negative) Urine Nitrite Negative (Negative) Ur Leukocyte Esterase Negative (Negative) Urine RBC 0-2 (0-2) /HPF Urine WBC 0-5 (0-5) /HPF Ur Squamous Epith Cells 3-5 (0-2) /HPF Urine Bacteria None Seen (None Seen) Hyaline Casts 6-10 (0-2) /LPF Granular Casts Present Urine Opiates Screen Not Detected (Not Detect) Ur Buprenorphine Scrn Not Detected (Not Detect) ng/mL Ur Oxycodone Screen Not Detected (Not Detect) ng/mL Urine Methadone Screen Positive H (Not Detect) ng/mL Urine Fentanyl Screen POSITIVE H (Not Detect) Ur Barbiturates Screen Not Detected (Not Detect) Ur Phencyclidine Scrn Not Detected (Not Detect) Ur Amphetamines Screen Not Detected (Not Detect) U Benzodiazepines Scrn POSITIVE H (Not Detect) Urine Cocaine Screen POSITIVE H (Not Detect) U Marijuana (THC) Screen Not Detected (Not Detect) Ethyl Alcohol mg/dL Influenza Type A (PCR) NEGATIVE (Negative) Influenza Type B (PCR) NEGATIVE (Negative) RSV RNA Qual (PCR) NEGATIVE (Negative) SARS-CoV-2 RNA (RT-PCR) NEGATIVE (Negative) Blood Type Antibody Screen 12/13/23 12/13/23 12/13/23 Range/Units 16:35 16:41 16:42 WBC (4.8-10.8) X10*3/uL RBC (4.20-5.50) X10*6/uL Hgb (12.0-16.0) g/dl Hct (37.0-47.0) % MCV (80.0-98.0) fL MCH (27.0-33.0) pg MCHC (31.0-35.0) g/dl RDW (11.0-16.0) % Plt Count (160-400) X10*3/uL MPV (9.4-12.3) fL Immature Gran % (Auto) Neut % (Auto) Lymph % (Auto) [place] % (Auto) Eos % (Auto) Baso % (Auto) Lymph # (Auto) [place] # (Auto) Eos # (Auto) Baso # (Auto) Abs Immat Gran (auto) Absolute Neuts (auto) Absolute Nucleated RBC (0.0-0.012) X10*3/uL Nucleated RBC % (auto) (0.0-0.2) /100WBC Neutrophils % (Manual) (45-73) % Band Neutrophils % (3-5) % Lymphocytes % (Manual) (20-40) % Monocytes % (Manual) (2-11) % Abs Neuts (Manual) (2.0-8.3) X10*3/uL Lymphocytes # (Manual) (1.2-4.9) X10*3/uL Monocytes # (Manual) (0.1-1.2) X10*3/uL Platelet Estimate (NORMAL) Plt Morphology Comment RBC Morphology Smear Tech's Comments PT (10.9-12.4) SEC INR (0.9-1.1) APTT (26.0-36.8) SEC O2 Saturation 99.0 % ABG pH at Pt Temp 7.27 L (7.35-7.45) ABG pCO2 at Pt Temp 44 (32-45) mmHg ABG pO2 at Pt Temp 178 H (83-108) mmHg ABG HCO3 20 L (22-26) mmol/L ABG Base Excess (Actual) -5.7 mmol/L VBG pH (7.32-7.43) VBG pCO2 mmHg VBG pO2 mmHg VBG HCO3 (22-26) mmol/L VBG O2 Saturation % VBG Base Excess mmol/L Sodium (135-145) mmol/L Potassium (3.3-5.1) mmol/L Chloride (96-108) mmol/L Carbon Dioxide (22-29) mmol/L Anion Gap (12-20) BUN (9-16) mg/dL Creatinine (0.5-1.4) mg/dL Estim Creat Clear Calc Estimated GFR POC Glucose 559 H* (60-115) mg/dL Random Glucose (60-115) mg/dL Lactic Acid (0.5-2.0) mmol/L Lactic Acid F/U @ 2Hr (0.5-2.0) mmol/L Calcium (8.4-10.2) mg/dL Magnesium (1.6-2.6) mg/dL Total Bilirubin (0.0-1.0) mg/dL Direct Bilirubin (0.0-0.5) mg/dL AST (5-31) U/L ALT (0-31) U/L Alkaline Phosphatase (39-117) U/L Ammonia 53 (13-55) umol/L Total Creatine Kinase (26-140) U/L Total Protein (6.5-8.0) g/dL Albumin (3.5-5.0) g/dL Lipase (8-78) U/L Beta-Hydroxybutyrate (0.02-0.27) mmol/L Urine Color Urine Appearance Urine pH (5.0-9.0) Ur Specific Lena (1.005-1.025) Urine Protein (Neg-Trace) mg/dL Urine Glucose (UA) (Negative) mg/dL Urine Ketones (Negative) mg/dL Urine Blood (Negative) Urine Nitrite (Negative) Ur Leukocyte Esterase (Negative) Urine RBC (0-2) /HPF Urine WBC (0-5) /HPF Ur Squamous Epith Cells (0-2) /HPF Urine Bacteria (None Seen) Hyaline Casts (0-2) /LPF Granular Casts Urine Opiates Screen (Not Detect) Ur Buprenorphine Scrn (Not Detect) ng/mL Ur Oxycodone Screen (Not Detect) ng/mL Urine Methadone Screen (Not Detect) ng/mL Urine Fentanyl Screen (Not Detect) Ur Barbiturates Screen (Not Detect) Ur Phencyclidine Scrn (Not Detect) Ur Amphetamines Screen (Not Detect) U Benzodiazepines Scrn (Not Detect) Urine Cocaine Screen (Not Detect) U Marijuana (THC) Screen (Not Detect) Ethyl Alcohol mg/dL Influenza Type A (PCR) (Negative) Influenza Type B (PCR) (Negative) RSV RNA Qual (PCR) (Negative) SARS-CoV-2 RNA (RT-PCR) (Negative) Blood Type Antibody Screen 12/13/23 12/13/23 12/13/23 Range/Units 17:58 18:56 19:06 WBC (4.8-10.8) X10*3/uL RBC (4.20-5.50) X10*6/uL Hgb (12.0-16.0) g/dl Hct (37.0-47.0) % MCV (80.0-98.0) fL MCH (27.0-33.0) pg MCHC (31.0-35.0) g/dl RDW (11.0-16.0) % Plt Count (160-400) X10*3/uL MPV (9.4-12.3) fL Immature Gran % (Auto) Neut % (Auto) Lymph % (Auto) [place] % (Auto) Eos % (Auto) Baso % (Auto) Lymph # (Auto) [place] # (Auto) Eos # (Auto) Baso # (Auto) Abs Immat Gran (auto) Absolute Neuts (auto) Absolute Nucleated RBC (0.0-0.012) X10*3/uL Nucleated RBC % (auto) (0.0-0.2) /100WBC Neutrophils % (Manual) (45-73) % Band Neutrophils % (3-5) % Lymphocytes % (Manual) (20-40) % Monocytes % (Manual) (2-11) % Abs Neuts (Manual) (2.0-8.3) X10*3/uL Lymphocytes # (Manual) (1.2-4.9) X10*3/uL Monocytes # (Manual) (0.1-1.2) X10*3/uL Platelet Estimate (NORMAL) Plt Morphology Comment RBC Morphology Smear Tech's Comments PT (10.9-12.4) SEC INR (0.9-1.1) APTT (26.0-36.8) SEC O2 Saturation % ABG pH at Pt Temp (7.35-7.45) ABG pCO2 at Pt Temp (32-45) mmHg ABG pO2 at Pt Temp (83-108) mmHg ABG HCO3 (22-26) mmol/L ABG Base Excess (Actual) mmol/L VBG pH (7.32-7.43) VBG pCO2 mmHg VBG pO2 mmHg VBG HCO3 (22-26) mmol/L VBG O2 Saturation % VBG Base Excess mmol/L Sodium (135-145) mmol/L Potassium (3.3-5.1) mmol/L Chloride (96-108) mmol/L Carbon Dioxide (22-29) mmol/L Anion Gap (12-20) BUN (9-16) mg/dL Creatinine (0.5-1.4) mg/dL Estim Creat Clear Calc Estimated GFR POC Glucose 398 H* 335 H (60-115) mg/dL Random Glucose (60-115) mg/dL Lactic Acid (0.5-2.0) mmol/L Lactic Acid F/U @ 2Hr 7.5 H* (0.5-2.0) mmol/L Calcium (8.4-10.2) mg/dL Magnesium (1.6-2.6) mg/dL Total Bilirubin (0.0-1.0) mg/dL Direct Bilirubin (0.0-0.5) mg/dL AST (5-31) U/L ALT (0-31) U/L Alkaline Phosphatase (39-117) U/L Ammonia (13-55) umol/L Total Creatine Kinase (26-140) U/L Total Protein (6.5-8.0) g/dL Albumin (3.5-5.0) g/dL Lipase (8-78) U/L Beta-Hydroxybutyrate (0.02-0.27) mmol/L Urine Color Urine Appearance Urine pH (5.0-9.0) Ur Specific Lena (1.005-1.025) Urine Protein (Neg-Trace) mg/dL Urine Glucose (UA) (Negative) mg/dL Urine Ketones (Negative) mg/dL Urine Blood (Negative) Urine Nitrite (Negative) Ur Leukocyte Esterase (Negative) Urine RBC (0-2) /HPF Urine WBC (0-5) /HPF Ur Squamous Epith Cells (0-2) /HPF Urine Bacteria (None Seen) Hyaline Casts (0-2) /LPF Granular Casts Urine Opiates Screen (Not Detect) Ur Buprenorphine Scrn (Not Detect) ng/mL Ur Oxycodone Screen (Not Detect) ng/mL Urine Methadone Screen (Not Detect) ng/mL Urine Fentanyl Screen (Not Detect) Ur Barbiturates Screen (Not Detect) Ur Phencyclidine Scrn (Not Detect) Ur Amphetamines Screen (Not Detect) U Benzodiazepines Scrn (Not Detect) Urine Cocaine Screen (Not Detect) U Marijuana (THC) Screen (Not Detect) Ethyl Alcohol mg/dL Influenza Type A (PCR) (Negative) Influenza Type B (PCR) (Negative) RSV RNA Qual (PCR) (Negative) SARS-CoV-2 RNA (RT-PCR) (Negative) Blood Type Antibody Screen Independent Interpretation I performed an independent interpretation of an: EKG Interpretation: Sinus tachycardia with heart rate of 105 beats per minute normal intervals normal axis no acute ST T wave changes no acute ischemia Radiology Impression Discussion of test interpretation with radiology: I have reviewed the radiologist's reading. Radiologist Impression: CT/CT abdomen pelvis w IV con IMPRESSION: 1. Acute pancreatitis. Please correlate with serum lipase. 2. The abnormal small bowel seen previously has resolved. 3. There is some mild mucosal thickening involving the rectosigmoid. 4. NG tube has its tip just above the GE junction and should be advanced. 5. Other incidental findings as described above. Fleischner guidelines were followed. Electronically signed by: Carroll Looney MD 12/13/2023 08:[address]/CT cervical spine wo IV con IMPRESSION: 1. No acute intracranial pathology. Small right frontal superficial scalp hematoma. 2. No CT evidence of acute cervical spine fracture or traumatic subluxation. Electronically signed by: Lj Crowder MD 12/13/2023 08:00 PM EDT RP Procedures Intubation Intubation Type:: Emergency Endotracheal Intubation Intubation Date:: 12/13/23 Intubation Time:: 16:10 Time out performed: Yes sedative: Ketamine Mg Given: 100 paralytic: Rocuronium Mg Given: 100 Laryngoscope: fiber optic video scope Assist Device Used: fiber optic device ET Tube Size: 7 ET Tube Uncuffed: No Tube Secured Depth (cm): 21 Tube Secured Location: lips Tube Placement Confirmation: visualized tube passing through cords, equal breath sounds bilaterally, no breath sounds over epigastrium and confirmation by capnometry Patient Tolerated Procedure: well Intubation Complications: none Additional Comments: at bedside Critical Care Time Critical Care Time Critical Care Time: Yes Total Critical Care Time: 45 Attestation: Patient presented in respiratory distress include the altered was intubated on arrival prior CT x-ray labs intubation I will placement and interpretation of the ABG and multiple re-evaluations. Workup for trauma as well as DKA and her altered mental status Discharge Plan Discharge Clinical Impression: Acute hyperglycemia, Diabetes type 2, uncontrolled, Vomiting, Episode of unresponsiveness, Acute alteration in mental status, Acute pancreatitis Patient Disposition: Admitted As Inpatient Interventions: Admission Worksheet (ED) Last Done: 12/13/23 19:43 Discharge Date/Time: 12/13/23 20:18
[2023-12-13] MEDS: Lactated Ringers 1,000 ML 999 ML IV (16:04)
[2023-12-13] MEDS: 0.9 % Sodium Chloride 1,000 ML 999 ML IV ×2 (16:04→16:25)
[2023-12-13 16:20] LABS: Hematocrit 41.4 % (37.0-47.0); Hemoglobin 12.8 g/dl (12.0-16.0); Mean Corpuscular HGB Conc 30.9 g/dl (31.0-35.0); Mean Corpuscular Volume 97.2 fL (80.0-98.0); Mean Platelet Volume 11.9 fL (9.4-12.3); NRBC Pct Auto 0.1 /100WBC (0.0-0.2); Platelet Count 292 X10*3/uL (160-400); Red Blood Count 4.26 X10*6/uL (4.20-5.50); Red Cell Distribution Width 12.4 % (11.0-16.0); White Blood Count 25.7 X10*3/uL (4.8-10.8)
[2023-12-13 16:25] LABS: INTERNATIONAL NORM RATIO 1.1 (0.9-1.1); Prothrombin Time 12.7 SEC (10.9-12.4)
[2023-12-13 16:27] LABS: Partial Thromboplastin Time 28.8 SEC (26.0-36.8); Venous Blood Gas Refer to POC result
[2023-12-13 16:27] LABS: VBG Base Excess -6.5 mmol/L; VBG HCO3 26 mmol/L (22-26); VBG pCO2 93 mmHg; VBG pH 7.05 (7.32-7.43); VBG pO2 38 mmHg
[2023-12-13 16:27] LABS: Appearance Urine Clear; Color Urine Yellow; Glucose Urine UA >=1000 mg/dL (Negative); Leukocyte Esterase Urine Negative (Negative); Nitrite Urine Negative (Negative); UMIC TRIGGER UACC YES; Urine Blood Large (3+) (Negative); Urine Ketones Negative (Negative); Urine Protein 30 (1+) mg/dL (Neg-Trace)
[2023-12-13] MEDS: ondansetron HCL 4 MG/2 ML VIAL IVPUSH (16:28)
[2023-12-13] MEDS: Insulin Regular, Human 100 UNIT/ML 10 ML VIAL 14 UNIT IVPUSH (16:28)
[2023-12-13] MEDS: propofoL 1,000 MG/100 ML VIAL 10.78 MG IVCONT (16:36)
[2023-12-13] MEDS: Insulin Regular/NS 100 UNIT/100 ML PLAST..BAG 6 UNIT IVCONT (16:41)
[2023-12-13 16:43] LABS: Beta-Hydroxybutyrate 0.07 mmol/L (0.02-0.27)
[2023-12-13 16:44] LABS: Lactic Acid 10.1 mmol/L (0.5-2.0)
[2023-12-13 16:44] LABS: Bacteria Urine None Seen (None Seen); Granular Casts Urine Present; RBC Urine 0-2 /HPF (0-2); WBC Urine 0-5 /HPF (0-5)
[2023-12-13 16:45] LABS: ABG Base Excess -5.7 mmol/L; ABG HCO3 20 mmol/L (22-26); ABG pCO2 44 mmHg (32-45); ABG pH 7.27 (7.35-7.45); ABG pO2 178 mmHg (83-108)
[2023-12-13 16:45] LABS: Ethanol < 10 mg/dL; Magnesium 2.2 mg/dL (1.6-2.6)
[2023-12-13] MEDS: fentaNYL citrate/PF 100 MCG/2 ML VIAL 50 MCG IVPUSH (16:51)
[2023-12-13 16:53] LABS: Glucose, Whole Blood 559 mg/dL (60-115)
[2023-12-13 16:59] LABS: Ammonia 53 umol/L (13-55)
[2023-12-13 17:03] LABS: SLIDE REVIEW MANUAL DIFF
[2023-12-13 17:06] LABS: Alanine Aminotransferase 19 U/L (0-31); Alkaline Phosphatase 121 U/L (39-117); Anion Gap 21 (12-20); Aspartate Amino Transferase 33 U/L (5-31); Bilirubin Direct < 0.2 mg/dL (0.0-0.5); Bilirubin Total 0.1 mg/dL (0.0-1.0); Blood Urea Nitrogen 8 mg/dL (9-16); Calcium 8.6 mg/dL (8.4-10.2); Carbon Dioxide 29 mmol/L (22-29); Chloride 95 mmol/L (96-108); Glucose Random 779 mg/dL (60-115); Sodium 141 mmol/L (135-145); Total Protein 7.3 g/dL (6.5-8.0)
[2023-12-13 17:08] LABS: Band Neutrophils Percent 6 % (3-5); Lymphocytes Absolute Manual 1.3 X10*3/uL (1.2-4.9); Lymphocytes Percent Manual 5 % (20-40); Monocytes Absolute Manual 2.1 X10*3/uL (0.1-1.2); Monocytes Percent Manual 8 % (2-11); Neutrophils Absolute Manual 22.4 X10*3/uL (2.0-8.3); Neutrophils Percent Manual 81 % (45-73)
[2023-12-13 17:09] LABS: Platelet Estimate NORMAL (NORMAL); Platelet Morphology Comment NORMAL; RBC Morphology NORMAL
[2023-12-13 17:24] LABS: Creatinine Clr Calc Pharmacy 27.8; Estimated Glomerular Filt Rate 30; Lipase 353 U/L (8-78)
[2023-12-13 17:28] LABS: Influenza A PCR NEGATIVE (Negative); Influenza B PCR NEGATIVE (Negative); Resp Syncy Virus RNA Qual PCR NEGATIVE (Negative); SARS COV2 PCR INHOUSE NEGATIVE (Negative)
[2023-12-13] MEDS: Piperacillin Sodium/Tazobactam 3.375 GM in 0.9 % Sodium Chloride 50 ML IV (17:30)
[2023-12-13 18:04] LABS: Glucose, Whole Blood 398 mg/dL (60-115)
[2023-12-13] MEDS: iohexoL 350 MG/ML 100 ML INFUS..BTL 85 ML IV (18:10)
[2023-12-13 18:14] LABS: Reflex Lactate? Lactic Acid Added
--- NOTE | 2023-12-13 18:42 | PC.NURSE ---
Patient arrived around 1543 EMS got called for unresponsive patient coffee ground vomit and diarrhea found all over. Patient had bump on forehead. When she arrived at ER started to wake up. ordered Meds to intubate versed 2mg given IM at 1548. left tibia iO placed at 1551 by Judith LACKEY. 1551 Fentanyl given via IO. 2 vi's placed 20g in bilateral AC's. intubated at 1556 tube 7.2- 21 at lip + colometrics. gve 2L one normal saline and one LR. inserted temp sensing foss with immediate output of 250cc's. OG tue placed at 4pm and verified placement. insuln drip started at 6units/kg/hr rechecked poc at 1758 per protocol decreased to 3units/kg/hr. rechecked poc 335 kept t same rate per protocol. BP was dropping sbp 90's decreased propofol to 15mcg/kg/hr. report given to Corinna Villavicencio.
[2023-12-13 18:59] LABS: Glucose, Whole Blood 335 mg/dL (60-115)
[2023-12-13 19:01] LABS: Amphetamine Screen Urine Not Detected (Not Detect); Barbiturates, Urine Not Detected (Not Detect); Benzodiazepines Screen Urine POSITIVE (Not Detect); Buprenorphine Scr Not Detected (Not Detect); Cannabinoid Screen Urine Not Detected (Not Detect); Cocaine Screen Urine POSITIVE (Not Detect); Fentanyl, urine POSITIVE (Not Detect); Methadone Screen, Urine Positive (Not Detect); Opiate Screen Urine Not Detected (Not Detect); Oxycodone Screen Urine Not Detected (Not Detect); Phencyclidine Screen Urine Not Detected (Not Detect)
--- NOTE | 2023-12-13 19:57 | PM.CCHP ---
History of Present Illness Date of Service: 12/13/23 Attending physician on admission: Reyes Perales Chief Complaint: Unresponsive The patient is a 58-year-old female with a past medical history of lung cancer (status post chemotherapy), radiation induced esophagitis, diabetes mellitus, COPD,? asthma,? polysubstance abuse,? seizure disorder, hypothyroidism and depression? who presented to the emergency department via? EMS as a code.? According to EMS,? family called emergency services due to patient being unresponsive, when arrived patient?s home patient? unresponsive, covered? in ground coffee emesis, was intubated with IGel,? EN route to the hospital? patient became pulseless and CPR was initiated.? ?On arrival to the emergency department,? ROSC was achieved,? patient was awake IGEL was removed, but she was still unable to protect airway,? she was re-intubated with the ET tube.? Patient? was tachycardic to 110, hypertensive to 171/104, and temperature was 92.3 degrees ? Laboratory data was significant for WBC of 25.7, anion gap 21, BUN 8, creatinine 1.74, serum glucose 779,? lactic acid 10.1, CK 2540, lipase 353 ?Venous gas:? 7./ IMAGING:? Head CT: No acute intracranial pathology. Small right frontal superficial scalp hematoma. Cervical spine CT:? no acute findings CT abdomen:? Acute pancreatitis ED COURSE:? ?Patient received a total of 3 L bolus, insulin 14 units IV push, Zosyn 3.375,? and started on an insulin drip. Patient also place on [facility] Review of Systems Review of Systems: Yes unobtainable due to endotracheal tube PMFSH Past Medical History Medical History Pulmonary nodule Diabetes type 2, uncontrolled Colitis Opioid use disorder Arthritis Fibromyalgia History of lung cancer Multinodular goiter Adrenal insufficiency due to cancer therapy Newly diagnosed diabetes Subclinical hyperthyroidism Pancreatitis (~02/2018) Radiation-induced esophagitis Hypothyroidism Depression Opioid abuse Asthma COPD (chronic obstructive pulmonary disease) Aftercare following left shoulder joint replacement surgery Non-small cell carcinoma of left lung, stage 4 Family History Family History Father Pancreatic cancer Mother Diabetes Skin cancer Rheumatoid arthritis Brother Diabetes Sister Diabetes Other History of thyroid disorder Surgical History Surgical History History of esophagogastroduodenoscopy (EGD) (~09/04/19) History of cholecystectomy (~12/02/08) History of endometrial ablation (~07/25/06) History of esophageal dilatation (~02/24/18) Hx of shoulder surgery (~2014) Hx of blepharoplasty (~2018) History of Social History Social History Household Members: Spouse Housing: Unknown / Unable to assess Do you presently have visiting nurse or other home services: Yes Alcohol intake: current Alcohol intake frequency: a few times a week Alcohol type: wine Comment: refuses bed alarm Patient Tobacco Use Status: Tobacco use Unknown Tobacco use type: Cigarette Cigarettes Per Day: 4 Years Smoked: 30 Second Hand Smoke Exposure: No Use of substances other than those prescribed or required for medical reasons: Unable to respond Currently Displaying Signs/Symptoms of Drug Intoxication Withdrawal: No Advance Directives: Yes Advance Directives on File: Yes Advance Directives Date on File: 05/12/20 Patient : No Poor oral hygiene: Yes service: No Current occupational status: unemployed and disabled Meds Allergies Allergy/AdvReac Type Severity Reaction Status Date / Time acetaminophen [Tylenol] AdvReac Unknown Abdominal Verified 12/13/23 15:56 Pain ibuprofen AdvReac Unknown Abdominal Verified 12/13/23 15:56 Pain Active Medications: Current Medications Chlorhexidine Gluconate (Chlorhexidine Gluc Oral Rinse 15 Ml Mouthwash) 15 ml BUCCAL TID SHABANA Heparin Sodium (Porcine) (Heparin Sodium,Porcine 5,000 Unit/Ml Vial) 5,000 unit SUBCUT TID SHABANA Propofol (Diprivan) 1,000 mg in 100 mls @ 0 mls/hr IVCONT .Q0M SHABANA; Protocol Last Titration: 12/13/23 18:36 Dose: 15 mcg/kg/min, 5.39 mls/hr Insulin Human Regular (Myxredlin) 100 unit in 100 mls @ 6 mls/hr IVCONT .[id number] SHABANA; Protocol Last Titration: 12/13/23 18:03 Dose: 3 unit/hr, 3 mls/hr Dextrose (D10) 250 mls @ 750 mls/hr IV Q30M PRN PRN Reason: BG <70 Piperacillin Sod/Tazobactam (Sod 4.5 gm/ Sodium Chloride) 100 mls @ 200 mls/hr IV Q8H [facility] Pantoprazole Sodium (Pantoprazole Sodium 40 Mg/10 Ml Vial) 40 mg IVPUSH BID@0630,1630 [facility] Home Medications ?Medication ?Instructions ?Recorded ?Confirmed ?Last Taken ?Type clonidine HCl 0.1 mg tablet 0.1 mg PO TID 12/17/19 12/13/23 11/21/23 08:00 History zolpidem 10 mg tablet 10 mg PO BEDTIME Sleep 03/08/20 12/13/23 11/21/23 08:00 History biotin 5,000 mcg sublingual tablet 5,000 mcg sublingual DAILY 02/10/21 12/13/23 02/08/21 History cholecalciferol (vitamin D3) 25 25 mcg PO DAILY 02/10/21 12/13/23 11/20/23 History mcg (1,000 unit) tablet (Vitamin D3) sumatriptan succinate 100 mg tablet 100 mg PO DAILY MRX1 PRN migraine 11/01/21 12/13/23 Unknown History fluoxetine 40 mg capsule 80 mg PO DAILY@1500 depressive 11/22/23 12/13/23 11/20/23 History disorder hydroxyzine HCl 50 mg tablet 50 mg PO BID anxiety 11/22/23 12/13/23 11/20/23 History omeprazole 20 mg capsule,delayed 20 mg PO DAILY@0630 11/22/23 12/13/23 Unknown History release alprazolam 1 mg tablet 1 mg PO TID PRN anxiety 12/13/23 12/13/23 Unknown History cephalexin 500 mg capsule 500 mg PO QID 12/13/23 12/13/23 Unknown History doxycycline hyclate 100 mg tablet 100 mg PO BID 12/13/23 12/13/23 Unknown History Physical Exam Vital Signs: Vital Signs: Last Vital Signs Temp 92.3 F L 12/13/23 18:30 Pulse 83 12/13/23 19:50 Resp 16 12/13/23 19:50 BP 98/66 12/13/23 19:50 Pulse Ox 99 12/13/23 19:50 O2 Del Method Mechanical Ventil ation 12/13/23 19:50 FiO2 25 12/13/23 19:34 BMI result Body Mass Index 24.2 Focused assessment performed at 1999 ?General:? Intubated ?HEENT:? Head is normocephalic, atraumatic, pupils equal round reactive to light accommodation bilaterally.? Buccal mucosa is dry, Neck is supple ?Cardiac:? Clear S1-S2, no murmurs rubs or gallops. ?Pulmonary:? Diminished at bases, no wheezes, rales or rhonchi. ?Abdomen:? ?Abdomen soft, non-tender, non-distended. Normal bowel sounds. No pulsatile mass. No hepatosplenomegaly. ?Musculoskeletal:? Moving all 4 extremities randomly.? Gait not assessed at this point. ?Neurologic:? + Gag, No focal deficits noted.Motor strength as above.?? ?Skin:?Contusion/ bruinsing of forehhead. Intact,? No ulcers. No edema Vascular:? 2+ pulses upper and lower extremities distally.? Results Labs 12/14/23 04:32 12/14/23 04:32 Labs: Laboratory Results - last 24 hr 12/13/23 12/13/23 12/13/23 15:54 16:02 16:03 MCV 97.2 MCH 30.0 MCHC 30.9 L RDW 12.4 Plt Count 292 D MPV 11.9 Immature Gran % (Auto) Cancelled Neut % (Auto) Cancelled Lymph % (Auto) Cancelled [place] % (Auto) Cancelled Eos % (Auto) Cancelled Baso % (Auto) Cancelled Lymph # (Auto) Cancelled [place] # (Auto) Cancelled Eos # (Auto) Cancelled Baso # (Auto) Cancelled Abs Immat Gran (auto) Cancelled Absolute Neuts (auto) Cancelled Absolute Nucleated RBC 0.020 H Nucleated RBC % (auto) 0.1 Neutrophils % (Manual) 81 H Band Neutrophils % 6 H Lymphocytes % (Manual) 5 L Monocytes % (Manual) 8 Abs Neuts (Manual) 22.4 H Lymphocytes # (Manual) 1.3 Monocytes # (Manual) 2.1 H Platelet Estimate NORMAL Plt Morphology Comment NORMAL RBC Morphology NORMAL Smear Tech's Comments MANUAL DIFF PT 12.7 H INR 1.1 APTT 28.8 O2 Saturation ABG pH at Pt Temp ABG pCO2 at Pt Temp ABG pO2 at Pt Temp ABG HCO3 ABG Base Excess (Actual) VBG pH VBG pCO2 VBG pO2 VBG HCO3 VBG O2 Saturation VBG Base Excess Anion Gap 21 H Estim Creat Clear Calc 27.8 Estimated GFR 30 POC Glucose > 600 H* Random Glucose 779 H* Lactic Acid 10.1 H* Calcium 8.6 D Magnesium 2.2 Total Bilirubin 0.1 Direct Bilirubin < 0.2 AST 33 H ALT 19 Alkaline Phosphatase 121 H Ammonia Total Creatine Kinase 2540 H Total Protein 7.3 Albumin 4.0 Lipase 353 H Beta-Hydroxybutyrate 0.07 Urine Color Urine Appearance Urine pH Ur Specific Leslie Urine Protein Urine Glucose (UA) Urine Ketones Urine Blood Urine Nitrite Ur Leukocyte Esterase Urine RBC Urine WBC Ur Squamous Epith Cells Urine Bacteria Hyaline Casts Granular Casts Urine Opiates Screen Ur Buprenorphine Scrn Ur Oxycodone Screen Urine Methadone Screen Urine Fentanyl Screen Ur Barbiturates Screen Ur Phencyclidine Scrn Ur Amphetamines Screen U Benzodiazepines Scrn Urine Cocaine Screen U Marijuana (THC) Screen Ethyl Alcohol < 10 Influenza Type A (PCR) Influenza Type B (PCR) RSV RNA Qual (PCR) SARS-CoV-2 RNA (RT-PCR) Blood Type O Negative Antibody Screen NEGATIVE 12/13/23 12/13/23 12/13/23 16:13 16:19 16:27 MCV MCH MCHC RDW Plt Count MPV Immature Gran % (Auto) Neut % (Auto) Lymph % (Auto) [place] % (Auto) Eos % (Auto) Baso % (Auto) Lymph # (Auto) [place] # (Auto) Eos # (Auto) Baso # (Auto) Abs Immat Gran (auto) Absolute Neuts (auto) Absolute Nucleated RBC Nucleated RBC % (auto) Neutrophils % (Manual) Band Neutrophils % Lymphocytes % (Manual) Monocytes % (Manual) Abs Neuts (Manual) Lymphocytes # (Manual) Monocytes # (Manual) Platelet Estimate Plt Morphology Comment RBC Morphology Smear Tech's Comments PT INR APTT O2 Saturation ABG pH at Pt Temp ABG pCO2 at Pt Temp ABG pO2 at Pt Temp ABG HCO3 ABG Base Excess (Actual) VBG pH 7.05 L* VBG pCO2 93 VBG pO2 38 VBG HCO3 26 VBG O2 Saturation 47.0 VBG Base Excess -6.5 Anion Gap Estim Creat Clear Calc Estimated GFR POC Glucose Random Glucose Lactic Acid Calcium Magnesium Total Bilirubin Direct Bilirubin AST ALT Alkaline Phosphatase Ammonia Total Creatine Kinase Total Protein Albumin Lipase Beta-Hydroxybutyrate Urine Color Yellow Urine Appearance Clear Urine pH 5.0 Ur Specific Leslie 1.020 Urine Protein 30 (1+) H Urine Glucose (UA) >=1000 H Urine Ketones Negative Urine Blood Large (3+) H Urine Nitrite Negative Ur Leukocyte Esterase Negative Urine RBC 0-2 Urine WBC 0-5 Ur Squamous Epith Cells 3-5 Urine Bacteria None Seen Hyaline Casts 6-10 Granular Casts Present Urine Opiates Screen Not Detected Ur Buprenorphine Scrn Not Detected Ur Oxycodone Screen Not Detected Urine Methadone Screen Positive H Urine Fentanyl Screen POSITIVE H Ur Barbiturates Screen Not Detected Ur Phencyclidine Scrn Not Detected Ur Amphetamines Screen Not Detected U Benzodiazepines Scrn POSITIVE H Urine Cocaine Screen POSITIVE H U Marijuana (THC) Screen Not Detected Ethyl Alcohol Influenza Type A (PCR) NEGATIVE Influenza Type B (PCR) NEGATIVE RSV RNA Qual (PCR) NEGATIVE SARS-CoV-2 RNA (RT-PCR) NEGATIVE Blood Type Antibody Screen 12/13/23 12/13/23 12/13/23 16:35 16:41 16:42 MCV MCH MCHC RDW Plt Count MPV Immature Gran % (Auto) Neut % (Auto) Lymph % (Auto) [place] % (Auto) Eos % (Auto) Baso % (Auto) Lymph # (Auto) [place] # (Auto) Eos # (Auto) Baso # (Auto) Abs Immat Gran (auto) Absolute Neuts (auto) Absolute Nucleated RBC Nucleated RBC % (auto) Neutrophils % (Manual) Band Neutrophils % Lymphocytes % (Manual) Monocytes % (Manual) Abs Neuts (Manual) Lymphocytes # (Manual) Monocytes # (Manual) Platelet Estimate Plt Morphology Comment RBC Morphology Smear Tech's Comments PT INR APTT O2 Saturation 99.0 ABG pH at Pt Temp 7.27 L ABG pCO2 at Pt Temp 44 ABG pO2 at Pt Temp 178 H ABG HCO3 20 L ABG Base Excess (Actual) -5.7 VBG pH VBG pCO2 VBG pO2 VBG HCO3 VBG O2 Saturation VBG Base Excess Anion Gap Estim Creat Clear Calc Estimated GFR POC Glucose 559 H* Random Glucose Lactic Acid Calcium Magnesium Total Bilirubin Direct Bilirubin AST ALT Alkaline Phosphatase Ammonia 53 Total Creatine Kinase Total Protein Albumin Lipase Beta-Hydroxybutyrate Urine Color Urine Appearance Urine pH Ur Specific Leslie Urine Protein Urine Glucose (UA) Urine Ketones Urine Blood Urine Nitrite Ur Leukocyte Esterase Urine RBC Urine WBC Ur Squamous Epith Cells Urine Bacteria Hyaline Casts Granular Casts Urine Opiates Screen Ur Buprenorphine Scrn Ur Oxycodone Screen Urine Methadone Screen Urine Fentanyl Screen Ur Barbiturates Screen Ur Phencyclidine Scrn Ur Amphetamines Screen U Benzodiazepines Scrn Urine Cocaine Screen U Marijuana (THC) Screen Ethyl Alcohol Influenza Type A (PCR) Influenza Type B (PCR) RSV RNA Qual (PCR) SARS-CoV-2 RNA (RT-PCR) Blood Type Antibody Screen 12/13/23 12/13/23 17:58 18:56 MCV MCH MCHC RDW Plt Count MPV Immature Gran % (Auto) Neut % (Auto) Lymph % (Auto) [place] % (Auto) Eos % (Auto) Baso % (Auto) Lymph # (Auto) [place] # (Auto) Eos # (Auto) Baso # (Auto) Abs Immat Gran (auto) Absolute Neuts (auto) Absolute Nucleated RBC Nucleated RBC % (auto) Neutrophils % (Manual) Band Neutrophils % Lymphocytes % (Manual) Monocytes % (Manual) Abs Neuts (Manual) Lymphocytes # (Manual) Monocytes # (Manual) Platelet Estimate Plt Morphology Comment RBC Morphology Smear Tech's Comments PT INR APTT O2 Saturation ABG pH at Pt Temp ABG pCO2 at Pt Temp ABG pO2 at Pt Temp ABG HCO3 ABG Base Excess (Actual) VBG pH VBG pCO2 VBG pO2 VBG HCO3 VBG O2 Saturation VBG Base Excess Anion Gap Estim Creat Clear Calc Estimated GFR POC Glucose 398 H* 335 H Random Glucose Lactic Acid Calcium Magnesium Total Bilirubin Direct Bilirubin AST ALT Alkaline Phosphatase Ammonia Total Creatine Kinase Total Protein Albumin Lipase Beta-Hydroxybutyrate Urine Color Urine Appearance Urine pH Ur Specific Leslie Urine Protein Urine Glucose (UA) Urine Ketones Urine Blood Urine Nitrite Ur Leukocyte Esterase Urine RBC Urine WBC Ur Squamous Epith Cells Urine Bacteria Hyaline Casts Granular Casts Urine Opiates Screen Ur Buprenorphine Scrn Ur Oxycodone Screen Urine Methadone Screen Urine Fentanyl Screen Ur Barbiturates Screen Ur Phencyclidine Scrn Ur Amphetamines Screen U Benzodiazepines Scrn Urine Cocaine Screen U Marijuana (THC) Screen Ethyl Alcohol Influenza Type A (PCR) Influenza Type B (PCR) RSV RNA Qual (PCR) SARS-CoV-2 RNA (RT-PCR) Blood Type Antibody Screen Imaging Radiologist's Impressions: Impressions Chest X-Ray 12/13/23 16:00 IMPRESSION: The endotracheal tube terminates 3.4 cm above the ace. The enteric tube terminates over the distal esophagus. It should be advanced. No consolidation. No pneumothorax or pleural effusion. Electronically signed by: Steve Parmar DO 12/13/2023 06:37 PM EDT Assessment and Plan (1) Septic shock: Status: Acute (2) Respiratory arrest: Status: Acute (3) Acute hypoxic respiratory failure: Status: Acute (4) Aspiration into airway: Status: Acute (5) Acute pancreatitis: Status: Acute (6) Substance abuse: Status: Acute (7) Vomiting: Status: Acute (8) Hyperosmolar hyperglycemic state (HHS): Status: Acute (9) Diabetes type 2, uncontrolled: Status: Acute (10) MARY (acute kidney injury): Status: Resolved Plan 58-year-old female with a past medical history of lung cancer (status post chemotherapy), radiation induced esophagitis, diabetes mellitus, COPD,? asthma,? polysubstance abuse,? seizure disorder, hypothyroidism and depression admitted to ICU for acute respiratory failure due acute intoxication with multiple substances Neuro:?? ?Acute intoxication/? substance abuse:? patient?s toxicology positive for methadone, fentanyl, benzos and cocaine.? This is likely reason for vomiting and sudden respiratory arrest.? ?Underlying history of seizures:? do not believe this was an acute seizure,? we will continue home Kera. Cardiac:?? Septic shock:? from possible aspiration pneumonia. Lactate initially 10.1, patient hypotensive requiring pressor support. On antibiotics. Continue antibiotics. Wean off pressors as tolerated Pulmonary:? ?Acute hypoxic respiratory failure/? cardiorespiratory arrest: ? ? From aspiration event, due to acute intoxication from multiple substances.? Patient cardiopulmonary arrested for approximately 1-2 minutes, Intubated for airway protection ? Cover with Zosyn in the emergency department. Wean off vent as tolerated. Cont abx for aspiration coverage Renal:? ??MARY- ? nonoliguric, most likely related to hypoperfusion, nonoliguric.? Continue IV fluid.? Continue to check renal induces and urine output Endo:? Acute Pancreatitis:? ? patient has elevated lipase and CT is consistent with acute pancreatitis.? reports patient is a daily drinker? of ? wine coolers?. ? Alcohol use is likely the cause of acute pancreatitis,? but would check cholesterol panel.? Continue fluids ?Hyperosmolar hyperglycemic state:? no evidence of DKA,? we will continue critical care insulin drip.? GI:?? ?Coffee-ground emesis:? hemoglobin is stable,? no evidence of further bleed. Will? start PPI.? continue to monitor for bleed? ID:? ?Aspiration pneumonia:? from acute intoxication.? She was covered with Zosyn in the ED.? cultures are pending.? We will continue Zosyn, add dose of vanco Heme/Onc: ? no acute issues Psych: ? substance abuse: Will consult addiction medicine when patient more stable? Miscellaneous: ? no acute issues Prophylaxis:? subQ heparin/? IV Protonix Critical care time:? X 90 minutes of critical care time Code? status:? FULL CODE?
[2023-12-13 19:59] LABS: ~Lactic Acid-LAB USE ONLY 7.5 mmol/L (0.5-2.0)
[2023-12-13 20:09] LABS: VBG Base Excess -5.9 mmol/L; VBG HCO3 22 mmol/L (22-26); VBG pCO2 54 mmHg; VBG pH 7.21 (7.32-7.43); VBG pO2 78 mmHg
[2023-12-13 20:13] LABS: Venous Blood Gas Refer to POC result
[2023-12-13 20:25] LABS: Anion Gap 18 (12-20); Blood Urea Nitrogen 8 mg/dL (9-16); Carbon Dioxide 22 mmol/L (22-29); Chloride 108 mmol/L (96-108); Creatinine Clr Calc Pharmacy 47.9; Estimated Glomerular Filt Rate 48; Glucose Random 353 mg/dL (60-115); Magnesium 1.9 mg/dL (1.6-2.6); Phosphorus 4.1 mg/dL (2.7-4.5); Potassium 2.8 mmol/L (3.3-5.1); Sodium 145 mmol/L (135-145)
[2023-12-13 20:33] LABS: Glucose, Whole Blood 202 mg/dL (60-115)
[2023-12-13] MEDS: Calcium Chloride 1 GM/10 ML SYRINGE IVPUSH (20:38)
[2023-12-13] MEDS: Potassium Chloride/H20 10 MEQ/100 ML PIGGYBACK 100 MEQ IV ×2 (20:44→22:28)
[2023-12-13] MEDS: KCl 40 mEq in 5% Dex/0.45% Sod 40 MEQ/1,000 ML IV.SOLN 200 MEQ IVCONT (21:03)
[2023-12-13 21:06] LABS: Albumin Level 3.5 g/dL (3.5-5.0); Triglycerides 246 mg/dL (<150)
[2023-12-13] MEDS: Metoprolol Tartrate 5 MG/5 ML VIAL IVPUSH (21:06)
[2023-12-13 21:11] LABS: Reflex Lactate? 2 Y
[2023-12-13 21:14] LABS: Glucose, Whole Blood 218 mg/dL (60-115)
[2023-12-13 21:37] LABS: Thyroid Stimulating Hormone 0.18 uIU/mL (0.32-4.0)
--- NOTE | 2023-12-13 21:43 | PHA.MEDREC ---
Addendum entered by Mirza Holland formerly [facility] 12/13/23 21:45: Med rec reviewed Original Note: Pharmacy Consult ? Medication Reconciliation Pharmacy has completed the medication reconciliation. Spoke to patient's to confirm med list. had all of patients bottle with him. states patient is still on Cephalexin 500 mg and Doxycycline 100 mg , End date for both is on 12/18/23.
[2023-12-13] MEDS: Norepinephrine Bitartrate/D5W 8 MG/250 ML PLAST..BAG 12.88 MG IVCONT (21:52)
[2023-12-13] MEDS: Sodium Bicarbonate 8.4% 50 MEQ/50 ML SYRINGE IVPUSH (21:56)
--- NOTE | 2023-12-13 21:57 | ECG_ITS ---
Test Reason : Rhythm change Blood Pressure : / mmHG Vent. Rate : 078 BPM Atrial Rate : 078 BPM P-R Int : 206 ms QRS Dur : 092 ms QT Int : 482 ms P-R-T Axes : 080 065 063 degrees QTc Int : 549 ms Normal sinus rhythm Nonspecific ST abnormality Prolonged QT Abnormal ECG When compared with ECG of 13-DEC-2023 16:06, ST elevation now present in Inferior leads ST elevation now present in Lateral leads Heart rate has decreased Referred By: Jacobo Valle Electronically Signed By:JONATHAN BOWER
[2023-12-13 22:00] LABS: Glucose, Whole Blood 245 mg/dL (60-115)
[2023-12-13 22:06] LABS: VBG Base Excess -8.1 mmol/L; VBG HCO3 15 mmol/L (22-26); VBG pCO2 28 mmHg; VBG pH 7.35 (7.32-7.43); VBG pO2 40 mmHg
[2023-12-13 22:06] LABS: Venous Blood Gas Refer to POC result
[2023-12-13] MEDS: Chlorhexidine Gluc Oral Rinse 15 ML MOUTHWASH BUCCAL (22:24)
[2023-12-13 22:28] LABS: ~Lactic Acid-LAB USE ONLY 7.9 mmol/L (0.5-2.0)
[2023-12-13 23:11] LABS: Glucose, Whole Blood 347 mg/dL (60-115)
--- NOTE | 2023-12-13 23:13 | W.PM.CCHP ---
Procedures Date of Service Date of Service: 12/14/23 <Jacobo Valle NP - Last Filed: 12/14/23 00:04> 12/14/23 <Reyes Perales MD - Last Filed: 12/14/23 11:46> Central Line Placement Right IJ: Central Line Comments: Patient requiring vasopressors, emergent central line obtained. Right internal jugular triple lumen central venous catheter placed in usual sterile conditions under ultrasound guidance for appropriate vascular access without immediate complications. Central line position verified with Chest XRAY. <Jacobo Valle NP - Last Filed: 12/14/23 00:04> Consent for Procedure: Emergent-no informed consent obtained <Jacobo Valle NP - Last Filed: 12/14/23 00:04> Time out performed: Yes <Jacobo Valle NP - Last Filed: 12/14/23 00:04> Sterile Technique Used: Yes <Jacobo Valle NP - Last Filed: 12/14/23 00:04> Patient placed on monitor/pulse ox: Yes <Jacobo Valle NP - Last Filed: 12/14/23 00:04> prep: mask, gown and gloves <Jacobo Valle NP - Last Filed: 12/14/23 00:04> Central line prep: Chlorhexidine scrub <Jacobo Valle NP - Last Filed: 12/14/23 00:04> Local anesthesia used: other anesthetic (On propofol for vent sedation) <Jacobo Valle NP - Last Filed: 12/14/23 00:04> Ultrasound used for placement: Yes <Jacobo Valle NP - Last Filed: 12/14/23 00:04> Central line lumen inserted: triple <Jacobo Valle NP - Last Filed: 12/14/23 00:04> Post procedure: sutured in place, good blood return, all ports aspirated, flushed, capped and sterile dressing applied <Jacobo Valle NP - Last Filed: 12/14/23 00:04> Post procedure x-ray: tip of catheter in good position <Jacobo Valle NP - Last Filed: 12/14/23 00:04> Patient tolerated procedure: well and no complications <Jacobo Valle NP - Last Filed: 12/14/23 00:04> Complications: none <Jacobo Valle NP - Last Filed: 12/14/23 00:04>
[2023-12-13 23:15] LABS: Anion Gap 21 (12-20); Blood Urea Nitrogen 8 mg/dL (9-16); Calcium 7.9 mg/dL (8.4-10.2); Carbon Dioxide 12 mmol/L (22-29); Chloride 113 mmol/L (96-108); Creatinine Clr Calc Pharmacy 50.2; Estimated Glomerular Filt Rate 50; Glucose Random 337 mg/dL (60-115); Potassium 4.4 mmol/L (3.3-5.1); Sodium 142 mmol/L (135-145)
[2023-12-13] MEDS: Lactated Ringers 1,000 ML 250 ML IVCONT (23:47)
[2023-12-13] MEDS: levETIRAcetam in NaCl (iso-os) 500 MG/100 ML PIGGYBACK 400 MG IV (23:49)
[2023-12-14] VITALS (42 sets, daily range): BP systolic 100–181; BP diastolic 61–120; PULSE 81–96; RESP 12–17; TEMP 34.9–38.2; O2SAT 96–100; BMI 24.8
[2023-12-14] MEDS: vancomycin HCL 1,500 MG in 0.9 % Sodium Chloride 500 ML 333.33 MG IV (00:04)
[2023-12-14 00:08] LABS: Glucose, Whole Blood 362 mg/dL (60-115)
[2023-12-14 00:14] LABS: B Type Natriuretic Peptide 486 pg/mL (<100)
[2023-12-14 00:16] LABS: Troponin-I High Sensitivity 451.8 ng/L (<3.5-17.0)
[2023-12-14 01:06] LABS: Glucose, Whole Blood 234 mg/dL (60-115)
[2023-12-14] MEDS: Piperacillin Sodium/Tazobactam 4.5 GM in 0.9 % Sodium Chloride 100 ML IV ×3 (01:12→16:20)
[2023-12-14] MEDS: propofoL 1,000 MG/100 ML VIAL 10.78 MG IVCONT ×3 (01:19→16:17)
[2023-12-14 01:43] LABS: Albumin Level 2.9 g/dL (3.5-5.0)
[2023-12-14 02:10] LABS: Glucose, Whole Blood 197 mg/dL (60-115)
[2023-12-14 02:48] LABS: Troponin-I High Sensitivity 529.5 ng/L (<3.5-17.0)
[2023-12-14] MEDS: Albumin Human 25 % 100 ML IV ×4 (02:50→19:45)
[2023-12-14 03:04] LABS: Glucose, Whole Blood 168 mg/dL (60-115)
[2023-12-14] MEDS: Lactated Ringers 1,000 ML 250 ML IVCONT ×3 (03:42→11:29)
[2023-12-14 04:08] LABS: Glucose, Whole Blood 155 mg/dL (60-115)
[2023-12-14 04:10] LABS: Reflex Lactate? Lactic Acid Added
[2023-12-14 04:54] LABS: VBG Base Excess 1.7 mmol/L; VBG HCO3 28 mmol/L (22-26); VBG pCO2 50 mmHg; VBG pH 7.35 (7.32-7.43); VBG pO2 30 mmHg
[2023-12-14 04:59] LABS: MANUAL DIFF FLAG NO
--- NOTE | 2023-12-14 05:00 | PC.NURSE ---
Patient admitted to ICU from ED at approx. 2030. Upon initial assessment, patient intubated and sedated on propofol (see MAR), RASS -4. SR 80s-90s on tele, SBP reading 180s. 5mg IV Lopressor ordered and administered, see MAR. Repeat BP 50/29, BHANU Valle notified. Levophed gtt ordered and started, titrated by BHANU Valle due to labile BPs (see MAR). ETT #7.0, 22cm at upper lip. Vent settings ACVC, 16/330/5/30%. Lung sounds clear to auscultation, small amount of coffee-ground secretions in-line suctioned. OGT present on arrival, found to be out of place and removed. New OGT inserted and confirmed with CXR, small amount of coffee ground gastric contents aspirated. Abdomen soft and round, positive bowel sounds x4. Insulin gtt running at 3 units/hr upon arrival, titrated per protocol. Temp upon arrival 94.8, evangelist hugger present on arrival. Garrett catheter in place draining cloudy straw colored urine. Patient skin pale, ashen, and diffuse mottling, cool to touch. Small abrasion to right forehead. Critical electrolytes replaced, see MAR. TLC to the right IJ inserted by BHANU Valle and confirmed by CXR. Patient's to bedside and updated by BHANU Valle and this RN, patient purse taken home by . Bed locked in lowest possible position, bed alarm on, turned Q2HR with pillows.
[2023-12-14 05:04] LABS: Glucose, Whole Blood 158 mg/dL (60-115)
[2023-12-14 05:09] LABS: Basophils Percent Auto 0.1 % (0-2); Hematocrit 36.4 % (37.0-47.0); Hemoglobin 11.9 g/dl (12.0-16.0); Imm Gran Abs Auto 0.16 X10*3/uL (0.00-0.03); Imm Gran Pct Auto 0.9 % (0.0-0.4); Lymphocytes Absolute Auto 2.2 X10*3/uL (1.2-4.9); Mean Corpuscular HGB Conc 32.7 g/dl (31.0-35.0); Mean Corpuscular Volume 91.7 fL (80.0-98.0); Mean Platelet Volume 11.9 fL (9.4-12.3); Monocytes Absolute Auto 1.1 X10*3/uL (0.1-1.2); Monocytes Percent Auto 6.1 % (2-11); Neutrophils Absolute Auto 15.1 x10*3/uL (2.0-8.3); Neutrophils Percent Auto 80.9 % (45-73); Platelet Count 243 X10*3/uL (160-400); Red Blood Count 3.97 X10*6/uL (4.20-5.50); Red Cell Distribution Width 12.5 % (11.0-16.0); White Blood Count 18.7 X10*3/uL (4.8-10.8)
[2023-12-14 05:20] LABS: Cholesterol 98 mg/dL (<200); HDL Cholesterol 38 mg/dL (>40)
[2023-12-14 05:22] LABS: Alanine Aminotransferase 59 U/L (0-31); Albumin Level 3.3 g/dL (3.5-5.0); Alkaline Phosphatase 86 U/L (39-117); Anion Gap 14 (12-20); Aspartate Amino Transferase 127 U/L (5-31); Bilirubin Total 0.4 mg/dL (0.0-1.0); Blood Urea Nitrogen 11 mg/dL (9-16); Calcium 8.5 mg/dL (8.4-10.2); Carbon Dioxide 25 mmol/L (22-29); Chloride 111 mmol/L (96-108); Estimated Glomerular Filt Rate 51; Glucose Random 185 mg/dL (60-115); Magnesium 1.5 mg/dL (1.6-2.6); Potassium 3.8 mmol/L (3.3-5.1); Sodium 146 mmol/L (135-145); Total Protein 5.5 g/dL (6.5-8.0)
[2023-12-14 05:26] LABS: Phosphorus 2.6 mg/dL (2.7-4.5)
[2023-12-14 05:30] LABS: ~Lactic Acid-LAB USE ONLY 2.1 mmol/L (0.5-2.0)
[2023-12-14 05:34] LABS: Venous Blood Gas Refer to POC result
[2023-12-14] MEDS: Pantoprazole Sodium 40 MG/10 ML VIAL IVPUSH ×2 (05:41→16:20)
[2023-12-14] MEDS: Furosemide 40 MG/4 ML VIAL IVPUSH (05:42)
[2023-12-14] MEDS: Potassium Phosphate/NS 15 MMOL/250 ML PLAST..BAG 62.5 MMOL IV (05:43)
[2023-12-14] MEDS: Magnesium Sulfate/H2O 2 GM/50 ML PIGGYBACK IV (05:48)
[2023-12-14 06:04] LABS: Glucose, Whole Blood 157 mg/dL (60-115)
--- NOTE | 2023-12-14 07:00 | CA_ITS ---
Transthoracic Echocardiogram Patient (Last, First, Middle): Desire Aguillon M Gender: Female Date of : 1965 Age: 58 Procedure Date: 12/14/2023 Procedure Type: Transthoracic Echocardiogram Location: ICU Height: 157.48 cm Weight: 61.24 kg BSA: 1.62 m2 Heart Rate: bpm BP: 157 / 94 mmHg Fire Ranger: JOCELYN Referring MD: Reyes Perales MD Symptoms: s/p respiratory arrest Study Quality: Fair/Contrast Conclusions: - Normal left ventricular cavity size. There is mildly increased left ventricular wall thickness. The left ventricular systolic function is moderately decreased. The visually estimated ejection fraction is between 30-35%. - E/E prime ratio is between 8 and 15 consistent with indeterminate filling pressures. - The entire apex, the mid anterior, and mid inferior segments are hypokinetic. - The mid anteroseptal and mid inferolateral segments are akinetic. Ischemia vs Takotsubo cardiomyopathy. - Normal right ventricular cavity size and systolic function. Findings Procedure Information Contrast agent, definity, is being given per protocol without apparent complications. Left Ventricle Normal left ventricular cavity size. There is mildly increased left ventricular wall thickness. The left ventricular systolic function is moderately decreased. The visually estimated ejection fraction is between 30 35%. There is evidence of regional wall motion abnormalities. Abnormal diastolic function is noted. Spectral Doppler is indicative of an impaired relaxation filling pattern. E/E prime ratio is between 8 and 15 consistent with indeterminate filling pressures. Wall Motion Rest Echo Findings The entire apex, the mid anterior, and mid inferior segments are hypokinetic. The mid anteroseptal and mid inferolateral segments are akinetic. Right Ventricle Normal right ventricular cavity size and systolic function. Atria The left atrium is normal in size. Aortic Valve Normal aortic valve structure and function. There is no aortic valve stenosis. There is no aortic valve regurgitation. Mitral Valve The mitral valve appears normal. There is trace mitral valve regurgitation. There is no mitral valve stenosis. Pulmonic Valve The pulmonic valve was not well visualized. Tricuspid Valve Normal tricuspid valve structure. There is trace tricuspid valve regurgitation. Tricuspid regurgitation envelope is inadequate for calculation of right ventricular systolic pressure. Significantly elevated right atrial pressure. Great Vessels All visible segments of the aorta are normal in size. Venous The inferior vena cava is dilated and does not collapse with inspiration. Pericardium/Pleural There is no evidence of pericardial effusion. Prior Study Comparison No prior study available for comparison. Measurements 2D Linear Measurements IVSd: 1.25 0.6-0.9/0.6-1.0 cm LVIDd: 3.29 3.9-5.3/4.2-5.9 cm LVIDd Index: 2.03 2.4-3.2/2.2-3.1 cm/m2 LVIDs: 2.73 2.0-3.6 cm LVPWd: 1.03 0.7-1.1 cm Ao Root: 2.90 2.1-3.5 cm LA Diam: 3.20 2.7-3.8/3.0-4.0 cm LAIDs Index: 1.98 1.5-2.3 cm/m2 LV Mass: 142.69 67-162/88-224 g LV Mass Index: 88.08 43-95/49-115 g/m2 LVOT Diam: 2.00 3.0+(-)1.3 cm 2D Systolic Function EF 4C: 35.50 >55% EF 2C: 32.90 >55% EF BiP: 33.30 >55% Mitral Valve MV Pk E: 0.45 MV PK A: 0.65 MV Decel Time: 161.00 E/A: 0.70 E'Lateral: 3.48 E'Medial: 3.70 E/E' Med: 12.10 E/E' Lat: 12.80 PHT: 47.00 MVA PHT: 4.68 Decel [place]: 2.78 Aortic Valve AoV Pk Daniele: 0.79 AoV Mn Daniele: 0.51 AoV VTI: 0.12 AoV Pk Grad: 2.00 Aov Mn Grad: 1.00 LVOT LVOT Diam: 2.00 LVOT Area: 3.14 Diastolic Function MV Pk E: 0.45 MV Pk A: 0.65 E/A: 0.70 E'Medial: 3.70 E/E' Med: 12.10 E' Laterial: 3.48 E/E' Lat: 12.80 Right Ventricle TAPSE (mm): 14.60 TVS' Daniele: 7.94 Tricuspid Valve TR Pk Daniele: 2.02 TR Pk Grad: 16.00 Great Vessels Aorta Ao Root-2D: 2.90 2.0-3.7 cm Ao Asc: 2.70 2.1-3.4 cm Ao Arch: 2.50 Updated in Other Vendor System with Status of Final Javier Nielson MD electronically signed on 12/14/2023 2:05:36 PM with status of Final
[2023-12-14 07:08] LABS: Glucose, Whole Blood 140 mg/dL (60-115)
--- NOTE | 2023-12-14 07:10 | HO.SKINPHOTO ---
Location: Right forehead Category: Abrasion Present on admission Location: Right medial ankle Category: scratch Present on admission
[2023-12-14 07:19] LABS: Reflex Lactate? 2 Y
[2023-12-14 07:25] LABS: Glucose, Whole Blood 166 mg/dL (60-115)
[2023-12-14] MEDS: levETIRAcetam in NaCl (iso-os) 500 MG/100 ML PIGGYBACK 400 MG IV ×2 (07:47→19:49)
[2023-12-14] MEDS: Chlorhexidine Gluc Oral Rinse 15 ML MOUTHWASH BUCCAL ×3 (07:47→19:47)
[2023-12-14 08:10] LABS: Glucose, Whole Blood 149 mg/dL (60-115)
[2023-12-14 08:28] LABS: ~Lactic Acid-LAB USE ONLY 1.8 mmol/L (0.5-2.0)
[2023-12-14 09:29] LABS: Glucose, Whole Blood 129 mg/dL (60-115)
[2023-12-14 10:17] LABS: Glucose, Whole Blood 122 mg/dL (60-115)
[2023-12-14 11:31] LABS: Glucose, Whole Blood 121 mg/dL (60-115)
--- NOTE | 2023-12-14 11:47 | P.PNCC_ITS ---
Subjective Subjective Date of Service: 12/14/23 Interval History: 58-year-old lady underlying history stage IV lung cancer status post XRT chemo, diabetes mellitus COPD, polysubstance abuse seizure disorder admitted on 12/13/2023 with respiratory arrest on the background of polysubstance abuse with pulmonary aspiration and shock requiring ventilatory and pressor support. Also noted to have pancreatitis. Started on IV fluids and empirically covered with broad-spectrum antibiotics. Events overnight. Critical Care Time (minutes): 60 Physical Exam 2 Vital Signs: Vital Signs: Last Vital Signs Temp 100.6 F H 12/14/23 10:00 Pulse 91 12/14/23 10:00 Resp 12 12/14/23 10:00 BP 157/94 H 12/14/23 10:00 Pulse Ox 100 12/14/23 10:00 O2 Del Method Mechanical Ventil ation 12/14/23 10:00 FiO2 30 12/14/23 11:37 BMI result Body Mass Index 24.8 Const: General: no acute distress and other (Sedated on the vent) Eyes: Sclerae: sclerae normal EOM: EOMs intact bilaterally Neck: Neck: Yes no lymphadenopathy, Yes trachea midline and Yes supple Resp: Auscultation: crackles bilateral Cardio: Rate: regular rate Rhythm: regular rhythm Heart sounds: no gallops, no murmurs and no rubs GI: Palpation (GI): Soft to palpation and Other GI palpation findings present ( Nontender) Auscultation: normal bowel sounds Extrem: General: No clubbing, No cyanosis and Yes edema (1+ bilateral) Objective Data Labs 12/14/23 04:32 12/14/23 04:32 Labs: Laboratory Results - last 24 hr 12/13/23 12/13/23 12/13/23 15:54 16:02 16:03 WBC 25.7 H RBC 4.26 Hgb 12.8 Hct 41.4 MCV 97.2 MCH 30.0 MCHC 30.9 L RDW 12.4 Plt Count 292 D MPV 11.9 Immature Gran % (Auto) Cancelled Neut % (Auto) Cancelled Lymph % (Auto) Cancelled [place] % (Auto) Cancelled Eos % (Auto) Cancelled Baso % (Auto) Cancelled Lymph # (Auto) Cancelled [place] # (Auto) Cancelled Eos # (Auto) Cancelled Baso # (Auto) Cancelled Abs Immat Gran (auto) Cancelled Absolute Neuts (auto) Cancelled Absolute Nucleated RBC 0.020 H Nucleated RBC % (auto) 0.1 Neutrophils % (Manual) 81 H Band Neutrophils % 6 H Lymphocytes % (Manual) 5 L Monocytes % (Manual) 8 Abs Neuts (Manual) 22.4 H Lymphocytes # (Manual) 1.3 Monocytes # (Manual) 2.1 H Platelet Estimate NORMAL Plt Morphology Comment NORMAL RBC Morphology NORMAL Smear Tech's Comments MANUAL DIFF PT 12.7 H INR 1.1 APTT 28.8 O2 Saturation ABG pH at Pt Temp ABG pCO2 at Pt Temp ABG pO2 at Pt Temp ABG HCO3 ABG Base Excess (Actual) VBG pH VBG pCO2 VBG pO2 VBG HCO3 VBG O2 Saturation VBG Base Excess Sodium 141 Potassium 4.0 D Chloride 95 L Carbon Dioxide 29 Anion Gap 21 H BUN 8 L Creatinine 1.74 H Estim Creat Clear Calc 27.8 Estimated GFR 30 POC Glucose > 600 H* Random Glucose 779 H* Lactic Acid 10.1 H* Lactic Acid F/U @ 2Hr Lactic Acid F/U @ 4Hr Calcium 8.6 D Phosphorus Magnesium 2.2 Total Bilirubin 0.1 Direct Bilirubin < 0.2 AST 33 H ALT 19 Alkaline Phosphatase 121 H Ammonia Total Creatine Kinase 2540 H Troponin I High Sens B-Natriuretic Peptide Total Protein 7.3 Albumin 4.0 Triglycerides Cholesterol HDL Cholesterol Lipase 353 H Beta-Hydroxybutyrate 0.07 TSH Urine Color Urine Appearance Urine pH Ur Specific [place] Urine Protein Urine Glucose (UA) Urine Ketones Urine Blood Urine Nitrite Ur Leukocyte Esterase Urine RBC Urine WBC Ur Squamous Epith Cells Urine Bacteria Hyaline Casts Granular Casts Urine Opiates Screen Ur Buprenorphine Scrn Ur Oxycodone Screen Urine Methadone Screen Urine Fentanyl Screen Ur Barbiturates Screen Ur Phencyclidine Scrn Ur Amphetamines Screen U Benzodiazepines Scrn Urine Cocaine Screen U Marijuana (THC) Screen Ethyl Alcohol < 10 Influenza Type A (PCR) Influenza Type B (PCR) RSV RNA Qual (PCR) SARS-CoV-2 RNA (RT-PCR) Blood Type O Negative Antibody Screen NEGATIVE 12/13/23 12/13/23 12/13/23 16:13 16:19 16:27 WBC RBC Hgb Hct MCV MCH MCHC RDW Plt Count MPV Immature Gran % (Auto) Neut % (Auto) Lymph % (Auto) [place] % (Auto) Eos % (Auto) Baso % (Auto) Lymph # (Auto) [place] # (Auto) Eos # (Auto) Baso # (Auto) Abs Immat Gran (auto) Absolute Neuts (auto) Absolute Nucleated RBC Nucleated RBC % (auto) Neutrophils % (Manual) Band Neutrophils % Lymphocytes % (Manual) Monocytes % (Manual) Abs Neuts (Manual) Lymphocytes # (Manual) Monocytes # (Manual) Platelet Estimate Plt Morphology Comment RBC Morphology Smear Tech's Comments PT INR APTT O2 Saturation ABG pH at Pt Temp ABG pCO2 at Pt Temp ABG pO2 at Pt Temp ABG HCO3 ABG Base Excess (Actual) VBG pH 7.05 L* VBG pCO2 93 VBG pO2 38 VBG HCO3 26 VBG O2 Saturation 47.0 VBG Base Excess -6.5 Sodium Potassium Chloride Carbon Dioxide Anion Gap BUN Creatinine Estim Creat Clear Calc Estimated GFR POC Glucose Random Glucose Lactic Acid Lactic Acid F/U @ 2Hr Lactic Acid F/U @ 4Hr Calcium Phosphorus Magnesium Total Bilirubin Direct Bilirubin AST ALT Alkaline Phosphatase Ammonia Total Creatine Kinase Troponin I High Sens B-Natriuretic Peptide Total Protein Albumin Triglycerides Cholesterol HDL Cholesterol Lipase Beta-Hydroxybutyrate TSH Urine Color Yellow Urine Appearance Clear Urine pH 5.0 Ur Specific [place] 1.020 Urine Protein 30 (1+) H Urine Glucose (UA) >=1000 H Urine Ketones Negative Urine Blood Large (3+) H Urine Nitrite Negative Ur Leukocyte Esterase Negative Urine RBC 0-2 Urine WBC 0-5 Ur Squamous Epith Cells 3-5 Urine Bacteria None Seen Hyaline Casts 6-10 Granular Casts Present Urine Opiates Screen Not Detected Ur Buprenorphine Scrn Not Detected Ur Oxycodone Screen Not Detected Urine Methadone Screen Positive H Urine Fentanyl Screen POSITIVE H Ur Barbiturates Screen Not Detected Ur Phencyclidine Scrn Not Detected Ur Amphetamines Screen Not Detected U Benzodiazepines Scrn POSITIVE H Urine Cocaine Screen POSITIVE H U Marijuana (THC) Screen Not Detected Ethyl Alcohol Influenza Type A (PCR) NEGATIVE Influenza Type B (PCR) NEGATIVE RSV RNA Qual (PCR) NEGATIVE SARS-CoV-2 RNA (RT-PCR) NEGATIVE Blood Type Antibody Screen 12/13/23 12/13/23 12/13/23 16:35 16:41 16:42 WBC RBC Hgb Hct MCV MCH MCHC RDW Plt Count MPV Immature Gran % (Auto) Neut % (Auto) Lymph % (Auto) [place] % (Auto) Eos % (Auto) Baso % (Auto) Lymph # (Auto) [place] # (Auto) Eos # (Auto) Baso # (Auto) Abs Immat Gran (auto) Absolute Neuts (auto) Absolute Nucleated RBC Nucleated RBC % (auto) Neutrophils % (Manual) Band Neutrophils % Lymphocytes % (Manual) Monocytes % (Manual) Abs Neuts (Manual) Lymphocytes # (Manual) Monocytes # (Manual) Platelet Estimate Plt Morphology Comment RBC Morphology Smear Tech's Comments PT INR APTT O2 Saturation 99.0 ABG pH at Pt Temp 7.27 L ABG pCO2 at Pt Temp 44 ABG pO2 at Pt Temp 178 H ABG HCO3 20 L ABG Base Excess (Actual) -5.7 VBG pH VBG pCO2 VBG pO2 VBG HCO3 VBG O2 Saturation VBG Base Excess Sodium Potassium Chloride Carbon Dioxide Anion Gap BUN Creatinine Estim Creat Clear Calc Estimated GFR POC Glucose 559 H* Random Glucose Lactic Acid Lactic Acid F/U @ 2Hr Lactic Acid F/U @ 4Hr Calcium Phosphorus Magnesium Total Bilirubin Direct Bilirubin AST ALT Alkaline Phosphatase Ammonia 53 Total Creatine Kinase Troponin I High Sens B-Natriuretic Peptide Total Protein Albumin Triglycerides Cholesterol HDL Cholesterol Lipase Beta-Hydroxybutyrate TSH Urine Color Urine Appearance Urine pH Ur Specific [place] Urine Protein Urine Glucose (UA) Urine Ketones Urine Blood Urine Nitrite Ur Leukocyte Esterase Urine RBC Urine WBC Ur Squamous Epith Cells Urine Bacteria Hyaline Casts Granular Casts Urine Opiates Screen Ur Buprenorphine Scrn Ur Oxycodone Screen Urine Methadone Screen Urine Fentanyl Screen Ur Barbiturates Screen Ur Phencyclidine Scrn Ur Amphetamines Screen U Benzodiazepines Scrn Urine Cocaine Screen U Marijuana (THC) Screen Ethyl Alcohol Influenza Type A (PCR) Influenza Type B (PCR) RSV RNA Qual (PCR) SARS-CoV-2 RNA (RT-PCR) Blood Type Antibody Screen 12/13/23 12/13/23 12/13/23 17:58 18:56 19:06 WBC RBC Hgb Hct MCV MCH MCHC RDW Plt Count MPV Immature Gran % (Auto) Neut % (Auto) Lymph % (Auto) [place] % (Auto) Eos % (Auto) Baso % (Auto) Lymph # (Auto) [place] # (Auto) Eos # (Auto) Baso # (Auto) Abs Immat Gran (auto) Absolute Neuts (auto) Absolute Nucleated RBC Nucleated RBC % (auto) Neutrophils % (Manual) Band Neutrophils % Lymphocytes % (Manual) Monocytes % (Manual) Abs Neuts (Manual) Lymphocytes # (Manual) Monocytes # (Manual) Platelet Estimate Plt Morphology Comment RBC Morphology Smear Tech's Comments PT INR APTT O2 Saturation ABG pH at Pt Temp ABG pCO2 at Pt Temp ABG pO2 at Pt Temp ABG HCO3 ABG Base Excess (Actual) VBG pH VBG pCO2 VBG pO2 VBG HCO3 VBG O2 Saturation VBG Base Excess Sodium Potassium Chloride Carbon Dioxide Anion Gap BUN Creatinine Estim Creat Clear Calc Estimated GFR POC Glucose 398 H* 335 H Random Glucose Lactic Acid Lactic Acid F/U @ 2Hr 7.5 H* Lactic Acid F/U @ 4Hr Calcium Phosphorus Magnesium Total Bilirubin Direct Bilirubin AST ALT Alkaline Phosphatase Ammonia Total Creatine Kinase Troponin I High Sens B-Natriuretic Peptide Total Protein Albumin Triglycerides Cholesterol HDL Cholesterol Lipase Beta-Hydroxybutyrate TSH Urine Color Urine Appearance Urine pH Ur Specific [place] Urine Protein Urine Glucose (UA) Urine Ketones Urine Blood Urine Nitrite Ur Leukocyte Esterase Urine RBC Urine WBC Ur Squamous Epith Cells Urine Bacteria Hyaline Casts Granular Casts Urine Opiates Screen Ur Buprenorphine Scrn Ur Oxycodone Screen Urine Methadone Screen Urine Fentanyl Screen Ur Barbiturates Screen Ur Phencyclidine Scrn Ur Amphetamines Screen U Benzodiazepines Scrn Urine Cocaine Screen U Marijuana (THC) Screen Ethyl Alcohol Influenza Type A (PCR) Influenza Type B (PCR) RSV RNA Qual (PCR) SARS-CoV-2 RNA (RT-PCR) Blood Type Antibody Screen 12/13/23 12/13/23 12/13/23 19:59 20:04 20:30 WBC RBC Hgb Hct MCV MCH MCHC RDW Plt Count MPV Immature Gran % (Auto) Neut % (Auto) Lymph % (Auto) [place] % (Auto) Eos % (Auto) Baso % (Auto) Lymph # (Auto) [place] # (Auto) Eos # (Auto) Baso # (Auto) Abs Immat Gran (auto) Absolute Neuts (auto) Absolute Nucleated RBC Nucleated RBC % (auto) Neutrophils % (Manual) Band Neutrophils % Lymphocytes % (Manual) Monocytes % (Manual) Abs Neuts (Manual) Lymphocytes # (Manual) Monocytes # (Manual) Platelet Estimate Plt Morphology Comment RBC Morphology Smear Tech's Comments PT INR APTT O2 Saturation ABG pH at Pt Temp ABG pCO2 at Pt Temp ABG pO2 at Pt Temp ABG HCO3 ABG Base Excess (Actual) VBG pH 7.21 L VBG pCO2 54 VBG pO2 78 VBG HCO3 22 VBG O2 Saturation 95.0 VBG Base Excess -5.9 Sodium 145 Potassium 2.8 L* D Chloride 108 Carbon Dioxide 22 Anion Gap 18 BUN 8 L Creatinine 1.16 Estim Creat Clear Calc 47.9 Estimated GFR 48 POC Glucose 202 H Random Glucose 353 H* Lactic Acid Lactic Acid F/U @ 2Hr Lactic Acid F/U @ 4Hr Calcium 8.0 L D Phosphorus 4.1 Magnesium 1.9 Total Bilirubin Direct Bilirubin AST ALT Alkaline Phosphatase Ammonia Total Creatine Kinase Troponin I High Sens B-Natriuretic Peptide Total Protein Albumin 3.5 Triglycerides 246 H Cholesterol HDL Cholesterol Lipase Beta-Hydroxybutyrate TSH 0.18 L Urine Color Urine Appearance Urine pH Ur Specific [place] Urine Protein Urine Glucose (UA) Urine Ketones Urine Blood Urine Nitrite Ur Leukocyte Esterase Urine RBC Urine WBC Ur Squamous Epith Cells Urine Bacteria Hyaline Casts Granular Casts Urine Opiates Screen Ur Buprenorphine Scrn Ur Oxycodone Screen Urine Methadone Screen Urine Fentanyl Screen Ur Barbiturates Screen Ur Phencyclidine Scrn Ur Amphetamines Screen U Benzodiazepines Scrn Urine Cocaine Screen U Marijuana (THC) Screen Ethyl Alcohol Influenza Type A (PCR) Influenza Type B (PCR) RSV RNA Qual (PCR) SARS-CoV-2 RNA (RT-PCR) Blood Type Antibody Screen 12/13/23 12/13/23 12/13/23 21:09 21:52 21:57 WBC RBC Hgb Hct MCV MCH MCHC RDW Plt Count MPV Immature Gran % (Auto) Neut % (Auto) Lymph % (Auto) [place] % (Auto) Eos % (Auto) Baso % (Auto) Lymph # (Auto) [place] # (Auto) Eos # (Auto) Baso # (Auto) Abs Immat Gran (auto) Absolute Neuts (auto) Absolute Nucleated RBC Nucleated RBC % (auto) Neutrophils % (Manual) Band Neutrophils % Lymphocytes % (Manual) Monocytes % (Manual) Abs Neuts (Manual) Lymphocytes # (Manual) Monocytes # (Manual) Platelet Estimate Plt Morphology Comment RBC Morphology Smear Tech's Comments PT INR APTT O2 Saturation ABG pH at Pt Temp ABG pCO2 at Pt Temp ABG pO2 at Pt Temp ABG HCO3 ABG Base Excess (Actual) VBG pH 7.35 VBG pCO2 28 VBG pO2 40 VBG HCO3 15 L VBG O2 Saturation 74.0 VBG Base Excess -8.1 Sodium Potassium Chloride Carbon Dioxide Anion Gap BUN Creatinine Estim Creat Clear Calc Estimated GFR POC Glucose 218 H 245 H Random Glucose Lactic Acid Lactic Acid F/U @ 2Hr Lactic Acid F/U @ 4Hr 7.9 H* Calcium Phosphorus Magnesium Total Bilirubin Direct Bilirubin AST ALT Alkaline Phosphatase Ammonia Total Creatine Kinase Troponin I High Sens B-Natriuretic Peptide Total Protein Albumin Triglycerides Cholesterol HDL Cholesterol Lipase Beta-Hydroxybutyrate TSH Urine Color Urine Appearance Urine pH Ur Specific [place] Urine Protein Urine Glucose (UA) Urine Ketones Urine Blood Urine Nitrite Ur Leukocyte Esterase Urine RBC Urine WBC Ur Squamous Epith Cells Urine Bacteria Hyaline Casts Granular Casts Urine Opiates Screen Ur Buprenorphine Scrn Ur Oxycodone Screen Urine Methadone Screen Urine Fentanyl Screen Ur Barbiturates Screen Ur Phencyclidine Scrn Ur Amphetamines Screen U Benzodiazepines Scrn Urine Cocaine Screen U Marijuana (THC) Screen Ethyl Alcohol Influenza Type A (PCR) Influenza Type B (PCR) RSV RNA Qual (PCR) SARS-CoV-2 RNA (RT-PCR) Blood Type Antibody Screen 12/13/23 12/13/23 12/13/23 22:39 23:08 23:44 WBC RBC Hgb Hct MCV MCH MCHC RDW Plt Count MPV Immature Gran % (Auto) Neut % (Auto) Lymph % (Auto) [place] % (Auto) Eos % (Auto) Baso % (Auto) Lymph # (Auto) [place] # (Auto) Eos # (Auto) Baso # (Auto) Abs Immat Gran (auto) Absolute Neuts (auto) Absolute Nucleated RBC Nucleated RBC % (auto) Neutrophils % (Manual) Band Neutrophils % Lymphocytes % (Manual) Monocytes % (Manual) Abs Neuts (Manual) Lymphocytes # (Manual) Monocytes # (Manual) Platelet Estimate Plt Morphology Comment RBC Morphology Smear Tech's Comments PT INR APTT O2 Saturation ABG pH at Pt Temp ABG pCO2 at Pt Temp ABG pO2 at Pt Temp ABG HCO3 ABG Base Excess (Actual) VBG pH VBG pCO2 VBG pO2 VBG HCO3 VBG O2 Saturation VBG Base Excess Sodium 142 Potassium 4.4 D Chloride 113 H Carbon Dioxide 12 L Anion Gap 21 H BUN 8 L Creatinine 1.11 Estim Creat Clear Calc 50.2 Estimated GFR 50 POC Glucose 347 H Random Glucose 337 H Lactic Acid Lactic Acid F/U @ 2Hr Lactic Acid F/U @ 4Hr Calcium 7.9 L Phosphorus Magnesium Total Bilirubin Direct Bilirubin AST ALT Alkaline Phosphatase Ammonia Total Creatine Kinase Troponin I High Sens 451.8 H* D B-Natriuretic Peptide 486 H Total Protein Albumin 2.9 L Triglycerides Cholesterol HDL Cholesterol Lipase Beta-Hydroxybutyrate TSH Urine Color Urine Appearance Urine pH Ur Specific [place] Urine Protein Urine Glucose (UA) Urine Ketones Urine Blood Urine Nitrite Ur Leukocyte Esterase Urine RBC Urine WBC Ur Squamous Epith Cells Urine Bacteria Hyaline Casts Granular Casts Urine Opiates Screen Ur Buprenorphine Scrn Ur Oxycodone Screen Urine Methadone Screen Urine Fentanyl Screen Ur Barbiturates Screen Ur Phencyclidine Scrn Ur Amphetamines Screen U Benzodiazepines Scrn Urine Cocaine Screen U Marijuana (THC) Screen Ethyl Alcohol Influenza Type A (PCR) Influenza Type B (PCR) RSV RNA Qual (PCR) SARS-CoV-2 RNA (RT-PCR) Blood Type Antibody Screen 12/14/23 12/14/23 12/14/23 00:01 01:00 01:59 WBC RBC Hgb Hct MCV MCH MCHC RDW Plt Count MPV Immature Gran % (Auto) Neut % (Auto) Lymph % (Auto) [place] % (Auto) Eos % (Auto) Baso % (Auto) Lymph # (Auto) [place] # (Auto) Eos # (Auto) Baso # (Auto) Abs Immat Gran (auto) Absolute Neuts (auto) Absolute Nucleated RBC Nucleated RBC % (auto) Neutrophils % (Manual) Band Neutrophils % Lymphocytes % (Manual) Monocytes % (Manual) Abs Neuts (Manual) Lymphocytes # (Manual) Monocytes # (Manual) Platelet Estimate Plt Morphology Comment RBC Morphology Smear Tech's Comments PT INR APTT O2 Saturation ABG pH at Pt Temp ABG pCO2 at Pt Temp ABG pO2 at Pt Temp ABG HCO3 ABG Base Excess (Actual) VBG pH VBG pCO2 VBG pO2 VBG HCO3 VBG O2 Saturation VBG Base Excess Sodium Potassium Chloride Carbon Dioxide Anion Gap BUN Creatinine Estim Creat Clear Calc Estimated GFR POC Glucose 362 H* 234 H Random Glucose Lactic Acid 3.0 H* Lactic Acid F/U @ 2Hr Lactic Acid F/U @ 4Hr Calcium Phosphorus Magnesium Total Bilirubin Direct Bilirubin AST ALT Alkaline Phosphatase Ammonia Total Creatine Kinase Troponin I High Sens 529.5 H* B-Natriuretic Peptide Total Protein Albumin Triglycerides Cholesterol HDL Cholesterol Lipase Beta-Hydroxybutyrate TSH Urine Color Urine Appearance Urine pH Ur Specific [place] Urine Protein Urine Glucose (UA) Urine Ketones Urine Blood Urine Nitrite Ur Leukocyte Esterase Urine RBC Urine WBC Ur Squamous Epith Cells Urine Bacteria Hyaline Casts Granular Casts Urine Opiates Screen Ur Buprenorphine Scrn Ur Oxycodone Screen Urine Methadone Screen Urine Fentanyl Screen Ur Barbiturates Screen Ur Phencyclidine Scrn Ur Amphetamines Screen U Benzodiazepines Scrn Urine Cocaine Screen U Marijuana (THC) Screen Ethyl Alcohol Influenza Type A (PCR) Influenza Type B (PCR) RSV RNA Qual (PCR) SARS-CoV-2 RNA (RT-PCR) Blood Type Antibody Screen 12/14/23 12/14/23 12/14/23 02:00 02:56 04:02 WBC RBC Hgb Hct MCV MCH MCHC RDW Plt Count MPV Immature Gran % (Auto) Neut % (Auto) Lymph % (Auto) [place] % (Auto) Eos % (Auto) Baso % (Auto) Lymph # (Auto) [place] # (Auto) Eos # (Auto) Baso # (Auto) Abs Immat Gran (auto) Absolute Neuts (auto) Absolute Nucleated RBC Nucleated RBC % (auto) Neutrophils % (Manual) Band Neutrophils % Lymphocytes % (Manual) Monocytes % (Manual) Abs Neuts (Manual) Lymphocytes # (Manual) Monocytes # (Manual) Platelet Estimate Plt Morphology Comment RBC Morphology Smear Tech's Comments PT INR APTT O2 Saturation ABG pH at Pt Temp ABG pCO2 at Pt Temp ABG pO2 at Pt Temp ABG HCO3 ABG Base Excess (Actual) VBG pH VBG pCO2 VBG pO2 VBG HCO3 VBG O2 Saturation VBG Base Excess Sodium Potassium Chloride Carbon Dioxide Anion Gap BUN Creatinine Estim Creat Clear Calc Estimated GFR POC Glucose 197 H 168 H 155 H Random Glucose Lactic Acid Lactic Acid F/U @ 2Hr Lactic Acid F/U @ 4Hr Calcium Phosphorus Magnesium Total Bilirubin Direct Bilirubin AST ALT Alkaline Phosphatase Ammonia Total Creatine Kinase Troponin I High Sens B-Natriuretic Peptide Total Protein Albumin Triglycerides Cholesterol HDL Cholesterol Lipase Beta-Hydroxybutyrate TSH Urine Color Urine Appearance Urine pH Ur Specific [place] Urine Protein Urine Glucose (UA) Urine Ketones Urine Blood Urine Nitrite Ur Leukocyte Esterase Urine RBC Urine WBC Ur Squamous Epith Cells Urine Bacteria Hyaline Casts Granular Casts Urine Opiates Screen Ur Buprenorphine Scrn Ur Oxycodone Screen Urine Methadone Screen Urine Fentanyl Screen Ur Barbiturates Screen Ur Phencyclidine Scrn Ur Amphetamines Screen U Benzodiazepines Scrn Urine Cocaine Screen U Marijuana (THC) Screen Ethyl Alcohol Influenza Type A (PCR) Influenza Type B (PCR) RSV RNA Qual (PCR) SARS-CoV-2 RNA (RT-PCR) Blood Type Antibody Screen 12/14/23 12/14/23 12/14/23 04:32 04:44 05:01 WBC 18.7 H RBC 3.97 L Hgb 11.9 L Hct 36.4 L MCV 91.7 D MCH 30.0 MCHC 32.7 RDW 12.5 Plt Count 243 MPV 11.9 Immature Gran % (Auto) 0.9 H Neut % (Auto) 80.9 H Lymph % (Auto) 12.0 L [place] % (Auto) 6.1 Eos % (Auto) 0.0 Baso % (Auto) 0.1 Lymph # (Auto) 2.2 [place] # (Auto) 1.1 Eos # (Auto) 0.0 Baso # (Auto) 0.0 Abs Immat Gran (auto) 0.16 H Absolute Neuts (auto) 15.1 H Absolute Nucleated RBC 0.000 Nucleated RBC % (auto) 0.0 Neutrophils % (Manual) Band Neutrophils % Lymphocytes % (Manual) Monocytes % (Manual) Abs Neuts (Manual) Lymphocytes # (Manual) Monocytes # (Manual) Platelet Estimate Plt Morphology Comment RBC Morphology Smear Tech's Comments PT INR APTT O2 Saturation ABG pH at Pt Temp ABG pCO2 at Pt Temp ABG pO2 at Pt Temp ABG HCO3 ABG Base Excess (Actual) VBG pH 7.35 VBG pCO2 50 VBG pO2 30 VBG HCO3 28 H VBG O2 Saturation 52.0 VBG Base Excess 1.7 Sodium 146 H Potassium 3.8 Chloride 111 H Carbon Dioxide 25 Anion Gap 14 BUN 11 Creatinine 1.10 Estim Creat Clear Calc 48.0 Estimated GFR 51 POC Glucose 158 H Random Glucose 185 H Lactic Acid Lactic Acid F/U @ 2Hr 2.1 H* Lactic Acid F/U @ 4Hr Calcium 8.5 D Phosphorus 2.6 L Magnesium 1.5 L Total Bilirubin 0.4 Direct Bilirubin AST 127 H ALT 59 H Alkaline Phosphatase 86 Ammonia Total Creatine Kinase Troponin I High Sens B-Natriuretic Peptide Total Protein 5.5 L Albumin 3.3 L Triglycerides Cholesterol 98 HDL Cholesterol 38 L Lipase Beta-Hydroxybutyrate TSH Urine Color Urine Appearance Urine pH Ur Specific [place] Urine Protein Urine Glucose (UA) Urine Ketones Urine Blood Urine Nitrite Ur Leukocyte Esterase Urine RBC Urine WBC Ur Squamous Epith Cells Urine Bacteria Hyaline Casts Granular Casts Urine Opiates Screen Ur Buprenorphine Scrn Ur Oxycodone Screen Urine Methadone Screen Urine Fentanyl Screen Ur Barbiturates Screen Ur Phencyclidine Scrn Ur Amphetamines Screen U Benzodiazepines Scrn Urine Cocaine Screen U Marijuana (THC) Screen Ethyl Alcohol Influenza Type A (PCR) Influenza Type B (PCR) RSV RNA Qual (PCR) SARS-CoV-2 RNA (RT-PCR) Blood Type Antibody Screen 12/14/23 12/14/23 12/14/23 06:01 07:05 07:16 WBC RBC Hgb Hct MCV MCH MCHC RDW Plt Count MPV Immature Gran % (Auto) Neut % (Auto) Lymph % (Auto) [place] % (Auto) Eos % (Auto) Baso % (Auto) Lymph # (Auto) [place] # (Auto) Eos # (Auto) Baso # (Auto) Abs Immat Gran (auto) Absolute Neuts (auto) Absolute Nucleated RBC Nucleated RBC % (auto) Neutrophils % (Manual) Band Neutrophils % Lymphocytes % (Manual) Monocytes % (Manual) Abs Neuts (Manual) Lymphocytes # (Manual) Monocytes # (Manual) Platelet Estimate Plt Morphology Comment RBC Morphology Smear Tech's Comments PT INR APTT O2 Saturation ABG pH at Pt Temp ABG pCO2 at Pt Temp ABG pO2 at Pt Temp ABG HCO3 ABG Base Excess (Actual) VBG pH VBG pCO2 VBG pO2 VBG HCO3 VBG O2 Saturation VBG Base Excess Sodium Potassium Chloride Carbon Dioxide Anion Gap BUN Creatinine Estim Creat Clear Calc Estimated GFR POC Glucose 157 H 140 H 166 H Random Glucose Lactic Acid Lactic Acid F/U @ 2Hr Lactic Acid F/U @ 4Hr Calcium Phosphorus Magnesium Total Bilirubin Direct Bilirubin AST ALT Alkaline Phosphatase Ammonia Total Creatine Kinase Troponin I High Sens B-Natriuretic Peptide Total Protein Albumin Triglycerides Cholesterol HDL Cholesterol Lipase Beta-Hydroxybutyrate TSH Urine Color Urine Appearance Urine pH Ur Specific [place] Urine Protein Urine Glucose (UA) Urine Ketones Urine Blood Urine Nitrite Ur Leukocyte Esterase Urine RBC Urine WBC Ur Squamous Epith Cells Urine Bacteria Hyaline Casts Granular Casts Urine Opiates Screen Ur Buprenorphine Scrn Ur Oxycodone Screen Urine Methadone Screen Urine Fentanyl Screen Ur Barbiturates Screen Ur Phencyclidine Scrn Ur Amphetamines Screen U Benzodiazepines Scrn Urine Cocaine Screen U Marijuana (THC) Screen Ethyl Alcohol Influenza Type A (PCR) Influenza Type B (PCR) RSV RNA Qual (PCR) SARS-CoV-2 RNA (RT-PCR) Blood Type Antibody Screen 12/14/23 12/14/23 12/14/23 08:06 09:18 10:06 WBC RBC Hgb Hct MCV MCH MCHC RDW Plt Count MPV Immature Gran % (Auto) Neut % (Auto) Lymph % (Auto) [place] % (Auto) Eos % (Auto) Baso % (Auto) Lymph # (Auto) [place] # (Auto) Eos # (Auto) Baso # (Auto) Abs Immat Gran (auto) Absolute Neuts (auto) Absolute Nucleated RBC Nucleated RBC % (auto) Neutrophils % (Manual) Band Neutrophils % Lymphocytes % (Manual) Monocytes % (Manual) Abs Neuts (Manual) Lymphocytes # (Manual) Monocytes # (Manual) Platelet Estimate Plt Morphology Comment RBC Morphology Smear Tech's Comments PT INR APTT O2 Saturation ABG pH at Pt Temp ABG pCO2 at Pt Temp ABG pO2 at Pt Temp ABG HCO3 ABG Base Excess (Actual) VBG pH VBG pCO2 VBG pO2 VBG HCO3 VBG O2 Saturation VBG Base Excess Sodium Potassium Chloride Carbon Dioxide Anion Gap BUN Creatinine Estim Creat Clear Calc Estimated GFR POC Glucose 149 H 129 H 122 H Random Glucose Lactic Acid Lactic Acid F/U @ 2Hr Lactic Acid F/U @ 4Hr 1.8 Calcium Phosphorus Magnesium Total Bilirubin Direct Bilirubin AST ALT Alkaline Phosphatase Ammonia Total Creatine Kinase Troponin I High Sens B-Natriuretic Peptide Total Protein Albumin Triglycerides Cholesterol HDL Cholesterol Lipase Beta-Hydroxybutyrate TSH Urine Color Urine Appearance Urine pH Ur Specific [place] Urine Protein Urine Glucose (UA) Urine Ketones Urine Blood Urine Nitrite Ur Leukocyte Esterase Urine RBC Urine WBC Ur Squamous Epith Cells Urine Bacteria Hyaline Casts Granular Casts Urine Opiates Screen Ur Buprenorphine Scrn Ur Oxycodone Screen Urine Methadone Screen Urine Fentanyl Screen Ur Barbiturates Screen Ur Phencyclidine Scrn Ur Amphetamines Screen U Benzodiazepines Scrn Urine Cocaine Screen U Marijuana (THC) Screen Ethyl Alcohol Influenza Type A (PCR) Influenza Type B (PCR) RSV RNA Qual (PCR) SARS-CoV-2 RNA (RT-PCR) Blood Type Antibody Screen 12/14/23 11:28 WBC RBC Hgb Hct MCV MCH MCHC RDW Plt Count MPV Immature Gran % (Auto) Neut % (Auto) Lymph % (Auto) [place] % (Auto) Eos % (Auto) Baso % (Auto) Lymph # (Auto) [place] # (Auto) Eos # (Auto) Baso # (Auto) Abs Immat Gran (auto) Absolute Neuts (auto) Absolute Nucleated RBC Nucleated RBC % (auto) Neutrophils % (Manual) Band Neutrophils % Lymphocytes % (Manual) Monocytes % (Manual) Abs Neuts (Manual) Lymphocytes # (Manual) Monocytes # (Manual) Platelet Estimate Plt Morphology Comment RBC Morphology Smear Tech's Comments PT INR APTT O2 Saturation ABG pH at Pt Temp ABG pCO2 at Pt Temp ABG pO2 at Pt Temp ABG HCO3 ABG Base Excess (Actual) VBG pH VBG pCO2 VBG pO2 VBG HCO3 VBG O2 Saturation VBG Base Excess Sodium Potassium Chloride Carbon Dioxide Anion Gap BUN Creatinine Estim Creat Clear Calc Estimated GFR POC Glucose 121 H Random Glucose Lactic Acid Lactic Acid F/U @ 2Hr Lactic Acid F/U @ 4Hr Calcium Phosphorus Magnesium Total Bilirubin Direct Bilirubin AST ALT Alkaline Phosphatase Ammonia Total Creatine Kinase Troponin I High Sens B-Natriuretic Peptide Total Protein Albumin Triglycerides Cholesterol HDL Cholesterol Lipase Beta-Hydroxybutyrate TSH Urine Color Urine Appearance Urine pH Ur Specific [place] Urine Protein Urine Glucose (UA) Urine Ketones Urine Blood Urine Nitrite Ur Leukocyte Esterase Urine RBC Urine WBC Ur Squamous Epith Cells Urine Bacteria Hyaline Casts Granular Casts Urine Opiates Screen Ur Buprenorphine Scrn Ur Oxycodone Screen Urine Methadone Screen Urine Fentanyl Screen Ur Barbiturates Screen Ur Phencyclidine Scrn Ur Amphetamines Screen U Benzodiazepines Scrn Urine Cocaine Screen U Marijuana (THC) Screen Ethyl Alcohol Influenza Type A (PCR) Influenza Type B (PCR) RSV RNA Qual (PCR) SARS-CoV-2 RNA (RT-PCR) Blood Type Antibody Screen Progress Note: A&P Assessment and plan (1) Septic shock: Status: Acute (2) Acute hypoxic respiratory failure: Status: Acute (3) Aspiration into airway: Status: Acute (4) Substance abuse: Status: Acute (5) Respiratory arrest: Status: Acute (6) Acute pancreatitis: Status: Acute (7) Diabetes type 2, uncontrolled: Status: Acute Plan Assessment: 58-year-old lady with underlying lung cancer status post chemo/XRT, seizure disorder, COPD, diabetes mellitus, hypothyroidism, polysubstance abuse admitted with respiratory arrest secondary to pulmonary aspiration on a background of polysubstance abuse, also noted to have acute pancreatitis Plan: Neuro: Toxic encephalopathy secondary to polysubstance abuse. Underlying history of seizure disorder, continue Keppra. Cardiac: Septic shock secondary to pulmonary aspiration, continue to titrate off pressors as tolerated. Respiratory arrest with successful resuscitation. 2D echo is pending Pulmonary: Acute hypoxic respiratory failure secondary to pulmonary aspiration now requiring ventilatory support, continue titrate off as tolerated. Renal: No acute issues. Endo: Acute pancreatitis with no evidence of pancreatic necrosis. Continue with fluid support. Monitor lipase level. Underlying diabetes mellitus, continue insulin drip. GI: No acute issues. ID: Pulmonary aspiration background of polysubstance abuse. Continue empiric antibiotics. Heme/Onc: No acute issues. Psych: No acute issues. Miscellaneous: No acute issues. Prophylaxis: Heparin, ppi Diet: NPO Critical care time spent: 60 minute Quality Stroke Does the patient have a stroke diagnosis?: No VTE Prior VTE?: No VTE Risk Level:: Medical - moderate - high VTE Device Contraindication: N/A - Device Ordered VTE Drug Contraindication: N/A - Med Ordered
--- NOTE | 2023-12-14 12:03 | MHC.CM.PN ---
Addendum entered by Mari Doan 12/14/23 14:11: DAUGHTER/HCP FRANCISCO RETURNED CALL. PT LIVES WITH HER SPOUSE. HAS 2 MANAGER READING'S BUT DAUGHTER UNSURE OF HOW MANY HOURS. DAUGHTER ALSO BELIEVES PT IS ACTIVE WITH [facility] BUT UNSURE OF THE AGENCY. PT IS INDEPENDENT WITH MOBILITY AT BASELINE. PCP AT [facility], UNSURE OF PROVIDER'S NAME. Original Note: PT IS CURRENTLY IN ICU, INTUBATED AND SEDATED. CM UNABLE TO REACH DAUGHTER/HCP FRANCISCO, MESSAGE AND EXPLANATION OF IMM LEFT ON VM, WHITE COPY LEFT AT BEDSIDE, YELLOW COPY TO CHART. +HCP ON FILE. AWAITING RETURN CALL FROM HCP TO COMPLETE CM ASSESSMENT. CM TO FOLLOW.
[2023-12-14 12:26] LABS: Lipase 192 U/L (8-78)
[2023-12-14 13:28] LABS: Glucose, Whole Blood 106 mg/dL (60-115)
[2023-12-14] MEDS: Heparin Sodium,Porcine 5,000 UNIT/ML VIAL 5000 UNIT SUBCUT ×2 (17:03→19:47)
[2023-12-14 17:06] LABS: Glucose, Whole Blood 116 mg/dL (60-115)
[2023-12-14 20:20] LABS: Albumin Level 3.5 g/dL (3.5-5.0); Anion Gap 17 (12-20); Blood Urea Nitrogen 12 mg/dL (9-16); Calcium 7.8 mg/dL (8.4-10.2); Carbon Dioxide 22 mmol/L (22-29); Chloride 111 mmol/L (96-108); Creatinine Clr Calc Pharmacy 44.4; Estimated Glomerular Filt Rate 47; Glucose Random 128 mg/dL (60-115); Magnesium 1.7 mg/dL (1.6-2.6); Phosphorus 3.7 mg/dL (2.7-4.5); Potassium 4.2 mmol/L (3.3-5.1); Sodium 146 mmol/L (135-145)
[2023-12-14] MEDS: Magnesium Sulfate/D5W 1 GM/100 ML PIGGYBACK IV (20:42)
[2023-12-14] MEDS: Calcium Gluconate/NaCl,Iso-Osm 2 GM/100 ML PLAST..BAG IV (20:50)
[2023-12-14] MEDS: propofoL 1,000 MG/100 ML VIAL 14.38 MG IVCONT (23:05)
[2023-12-14 23:25] LABS: Glucose, Whole Blood 144 mg/dL (60-115)
[2023-12-14] MEDS: 0.9 % Sodium Chloride Flush 3 ML SYRINGE IVFLUSH (23:44)
[2023-12-15] VITALS (29 sets, daily range): BP systolic 145–180; BP diastolic 85–113; PULSE 83–103; RESP 10–26; TEMP 34.8–37.6; O2SAT 93–100; BMI 25.6
[2023-12-15] MEDS: Piperacillin Sodium/Tazobactam 4.5 GM in 0.9 % Sodium Chloride 100 ML IV ×3 (00:01→16:24)
[2023-12-15] MEDS: propofoL 1,000 MG/100 ML VIAL 14.38 MG IVCONT (04:11)
[2023-12-15 05:16] LABS: VBG Base Excess 6.4 mmol/L; VBG HCO3 29 mmol/L (22-26); VBG pCO2 36 mmHg; VBG pH 7.51 (7.32-7.43); VBG pO2 42 mmHg
[2023-12-15 05:51] LABS: Basophils Percent Auto 0.3 % (0-2); Eosinophils Percent Auto 0.2 % (0-4); Hematocrit 28.4 % (37.0-47.0); Hemoglobin 9.7 g/dl (12.0-16.0); Imm Gran Abs Auto 0.09 X10*3/uL (0.00-0.03); Imm Gran Pct Auto 0.7 % (0.0-0.4); Lymphocytes Percent Auto 15.2 % (20-40); Mean Corpuscular HGB Conc 34.2 g/dl (31.0-35.0); Mean Corpuscular Hemoglobin 30.4 pg (27.0-33.0); Mean Platelet Volume 12.6 fL (9.4-12.3); Monocytes Absolute Auto 0.6 X10*3/uL (0.1-1.2); Monocytes Percent Auto 4.9 % (2-11); Neutrophils Absolute Auto 10.3 x10*3/uL (2.0-8.3); Neutrophils Percent Auto 78.7 % (45-73); Red Blood Count 3.19 X10*6/uL (4.20-5.50); Red Cell Distribution Width 13.1 % (11.0-16.0)
[2023-12-15 05:53] LABS: MANUAL DIFF FLAG SCAN; Platelet Count 92 X10*3/uL (160-400)
[2023-12-15 06:04] LABS: Venous Blood Gas Refer to POC result
[2023-12-15 06:13] LABS: Glucose, Whole Blood 174 mg/dL (60-115)
[2023-12-15] MEDS: Insulin Lispro 100 UNIT/ML 3 ML VIAL SUBCUT ×2 (06:15→13:07)
[2023-12-15] MEDS: Pantoprazole Sodium 40 MG/10 ML VIAL IVPUSH (06:15)
[2023-12-15 06:16] LABS: Alanine Aminotransferase 44 U/L (0-31); Albumin Level 3.7 g/dL (3.5-5.0); Alkaline Phosphatase 62 U/L (39-117); Anion Gap 16 (12-20); Aspartate Amino Transferase 82 U/L (5-31); Bilirubin Total 0.7 mg/dL (0.0-1.0); Blood Urea Nitrogen 10 mg/dL (9-16); Calcium 8.9 mg/dL (8.4-10.2); Carbon Dioxide 25 mmol/L (22-29); Chloride 106 mmol/L (96-108); Creatinine Clr Calc Pharmacy 58.9; Estimated Glomerular Filt Rate > 60; Glucose Random 180 mg/dL (60-115); Magnesium 1.9 mg/dL (1.6-2.6); Phosphorus 3.1 mg/dL (2.7-4.5); Sodium 144 mmol/L (135-145); Total Protein 5.5 g/dL (6.5-8.0)
[2023-12-15 06:21] LABS: SLIDE REVIEW VERIFIED
[2023-12-15] MEDS: 0.9 % Sodium Chloride Flush 3 ML SYRINGE IVFLUSH ×2 (07:24→16:24)
[2023-12-15] MEDS: Potassium Chloride Packet 20 MEQ PACKET 40 MEQ OG-TUBE (07:24)
[2023-12-15] MEDS: Potassium Chloride/H20 40 MEQ/100 ML PIGGYBACK 50 MEQ IV (07:26)
[2023-12-15] MEDS: levETIRAcetam in NaCl (iso-os) 500 MG/100 ML PIGGYBACK 400 MG IV ×2 (09:20→21:29)
[2023-12-15] MEDS: Chlorhexidine Gluc Oral Rinse 15 ML MOUTHWASH BUCCAL (09:20)
[2023-12-15] MEDS: Heparin Sodium,Porcine 5,000 UNIT/ML VIAL 5000 UNIT SUBCUT (09:21)
[2023-12-15] MEDS: Ketorolac Tromethamine 30 MG/ML VIAL IVPUSH ×2 (11:13→18:03)
--- NOTE | 2023-12-15 12:38 | P.PNCC_ITS ---
Subjective Subjective Date of Service: 12/15/23 Interval History: 58-year-old lady underlying history stage IV lung cancer status post XRT chemo, diabetes mellitus COPD, polysubstance abuse seizure disorder admitted on 12/13/2023 with respiratory arrest on the background of polysubstance abuse with pulmonary aspiration and shock requiring ventilatory and pressor support. Also noted to have pancreatitis. Started on IV fluids and empirically covered with broad-spectrum antibiotics. No events overnight. Extubated uneventfully this morning. Critical Care Time (minutes): 60 Physical Exam 2 Vital Signs: Vital Signs: Last Vital Signs Temp 99.5 F 12/15/23 12:00 Pulse 97 12/15/23 12:00 Resp 13 12/15/23 12:00 BP 169/98 H 12/15/23 12:00 Pulse Ox 96 12/15/23 12:00 O2 Del Method Room Air 12/15/23 12:00 FiO2 25 12/15/23 11:00 BMI result Body Mass Index 25.6 Const: General: no acute distress, alert and awake Eyes: Sclerae: sclerae normal EOM: EOMs intact bilaterally Neck: Neck: Yes no lymphadenopathy, Yes trachea midline and Yes supple Resp: Effort & Inspection: normal respiratory effort and no respiratory distress Auscultation: clear to auscultation bilaterally Cardio: Rate: regular rate Rhythm: regular rhythm Heart sounds: no gallops, no murmurs and no rubs GI: Palpation (GI): Soft to palpation and Other GI palpation findings present ( Nontender) Auscultation: normal bowel sounds Extrem: General: Yes no pedal edema, No clubbing and No cyanosis Objective Data Labs 12/15/23 05:08 12/15/23 05:08 Labs: Laboratory Results - last 24 hr 12/14/23 12/14/23 12/14/23 13:24 17:02 19:46 WBC RBC Hgb Hct MCV MCH MCHC RDW Plt Count MPV Immature Gran % (Auto) Neut % (Auto) Lymph % (Auto) [place] % (Auto) Eos % (Auto) Baso % (Auto) Lymph # (Auto) [place] # (Auto) Eos # (Auto) Baso # (Auto) Abs Immat Gran (auto) Absolute Neuts (auto) Absolute Nucleated RBC Nucleated RBC % (auto) Smear Tech's Comments VBG pH VBG pCO2 VBG pO2 VBG HCO3 VBG O2 Saturation VBG Base Excess Sodium 146 H Potassium 4.2 Chloride 111 H Carbon Dioxide 22 Anion Gap 17 BUN 12 Creatinine 1.19 Estim Creat Clear Calc 44.4 Estimated GFR 47 POC Glucose 106 116 H Random Glucose 128 H Calcium 7.8 L D Phosphorus 3.7 Magnesium 1.7 Total Bilirubin AST ALT Alkaline Phosphatase Total Protein Albumin 3.5 12/14/23 12/15/23 12/15/23 23:20 05:07 05:08 WBC 13.0 H RBC 3.19 L Hgb 9.7 L Hct 28.4 L D MCV 89.0 MCH 30.4 MCHC 34.2 RDW 13.1 Plt Count 92 L D MPV 12.6 H Immature Gran % (Auto) 0.7 H Neut % (Auto) 78.7 H Lymph % (Auto) 15.2 L [place] % (Auto) 4.9 Eos % (Auto) 0.2 Baso % (Auto) 0.3 Lymph # (Auto) 2.0 [place] # (Auto) 0.6 Eos # (Auto) 0.0 Baso # (Auto) 0.0 Abs Immat Gran (auto) 0.09 H Absolute Neuts (auto) 10.3 H Absolute Nucleated RBC 0.000 Nucleated RBC % (auto) 0.0 Smear Tech's Comments VERIFIED VBG pH 7.51 H VBG pCO2 36 VBG pO2 42 VBG HCO3 29 H VBG O2 Saturation 66.0 VBG Base Excess 6.4 Sodium 144 Potassium 3.0 L D Chloride 106 Carbon Dioxide 25 Anion Gap 16 BUN 10 Creatinine 0.91 Estim Creat Clear Calc 58.9 Estimated GFR > 60 POC Glucose 144 H Random Glucose 180 H Calcium 8.9 D Phosphorus 3.1 Magnesium 1.9 Total Bilirubin 0.7 AST 82 H ALT 44 H Alkaline Phosphatase 62 Total Protein 5.5 L Albumin 3.7 12/15/23 06:09 WBC RBC Hgb Hct MCV MCH MCHC RDW Plt Count MPV Immature Gran % (Auto) Neut % (Auto) Lymph % (Auto) [place] % (Auto) Eos % (Auto) Baso % (Auto) Lymph # (Auto) [place] # (Auto) Eos # (Auto) Baso # (Auto) Abs Immat Gran (auto) Absolute Neuts (auto) Absolute Nucleated RBC Nucleated RBC % (auto) Smear Tech's Comments VBG pH VBG pCO2 VBG pO2 VBG HCO3 VBG O2 Saturation VBG Base Excess Sodium Potassium Chloride Carbon Dioxide Anion Gap BUN Creatinine Estim Creat Clear Calc Estimated GFR POC Glucose 174 H Random Glucose Calcium Phosphorus Magnesium Total Bilirubin AST ALT Alkaline Phosphatase Total Protein Albumin Microbiology Microbiology Results: Microbiology 12/13/23 16:26 Blood - Venous Blood Culture - Preliminary No growth after 24 hours. 12/13/23 16:42 Blood - Venous Blood Culture - Preliminary No growth after 24 hours. Progress Note: A&P Assessment and plan (1) Acute hypoxic respiratory failure: Status: Acute (2) Aspiration into airway: Status: Acute (3) Respiratory arrest: Status: Acute (4) Substance abuse: Status: Acute Plan Assessment: 58-year-old lady with underlying lung cancer status post chemo/XRT, seizure disorder, COPD, diabetes mellitus, hypothyroidism, polysubstance abuse admitted with respiratory arrest secondary to pulmonary aspiration on a background of polysubstance abuse, also noted to have acute pancreatitis Plan: Neuro: Toxic encephalopathy secondary to polysubstance abuse. Underlying history of seizure disorder, continue Keppra. Cardiac: Septic shock secondary to pulmonary aspiration, resolved. Respiratory arrest with successful resuscitation. 2D echo is pending Pulmonary: Acute hypoxic respiratory failure secondary to pulmonary aspiration initially requiring ventilatory support, extubated this a.m.. Renal: No acute issues. Endo: Acute pancreatitis with no evidence of pancreatic necrosis, improving. Underlying diabetes mellitus. GI: No acute issues. ID: Pulmonary aspiration background of polysubstance abuse. Continue empiric antibiotics. Heme/Onc: No acute issues. Psych: No acute issues. Miscellaneous: No acute issues. Prophylaxis: Heparin Diet: Pending swallow evaluation Critical care time spent: 60 minute Quality Stroke Does the patient have a stroke diagnosis?: No VTE Prior VTE?: No VTE Risk Level:: Medical - moderate - high VTE Device Contraindication: N/A - Device Ordered VTE Drug Contraindication: N/A - Med Ordered
[2023-12-15 12:55] LABS: Glucose, Whole Blood 162 mg/dL (60-115)
[2023-12-15 17:56] LABS: Glucose, Whole Blood 142 mg/dL (60-115)
[2023-12-15 20:12] LABS: MANUAL DIFF FLAG NO
[2023-12-15 20:14] LABS: Basophils Percent Auto 0.2 % (0-2); Eosinophils Percent Auto 0.2 % (0-4); Hematocrit 26.3 % (37.0-47.0); Hemoglobin 8.9 g/dl (12.0-16.0); Imm Gran Abs Auto 0.09 X10*3/uL (0.00-0.03); Imm Gran Pct Auto 0.8 % (0.0-0.4); Lymphocytes Absolute Auto 1.3 X10*3/uL (1.2-4.9); Lymphocytes Percent Auto 11.6 % (20-40); Mean Corpuscular HGB Conc 33.8 g/dl (31.0-35.0); Mean Corpuscular Hemoglobin 30.7 pg (27.0-33.0); Mean Corpuscular Volume 90.7 fL (80.0-98.0); Mean Platelet Volume 12.7 fL (9.4-12.3); Monocytes Absolute Auto 0.5 X10*3/uL (0.1-1.2); Monocytes Percent Auto 4.4 % (2-11); Neutrophils Absolute Auto 9.3 x10*3/uL (2.0-8.3); Neutrophils Percent Auto 82.8 % (45-73); Red Cell Distribution Width 13.1 % (11.0-16.0); White Blood Count 11.3 X10*3/uL (4.8-10.8)
[2023-12-15 20:15] LABS: Platelet Count 80 X10*3/uL (160-400)
[2023-12-15 20:31] LABS: Albumin Level 3.5 g/dL (3.5-5.0); Anion Gap 13 (12-20); Blood Urea Nitrogen 8 mg/dL (9-16); Calcium 8.3 mg/dL (8.4-10.2); Carbon Dioxide 26 mmol/L (22-29); Chloride 109 mmol/L (96-108); Creatinine Clr Calc Pharmacy 67.8; Estimated Glomerular Filt Rate > 60; Glucose Random 141 mg/dL (60-115); Magnesium 1.8 mg/dL (1.6-2.6); Phosphorus 2.6 mg/dL (2.7-4.5); Potassium 3.4 mmol/L (3.3-5.1); Sodium 145 mmol/L (135-145)
[2023-12-15] MEDS: Calcium Gluconate/NaCl,Iso-Osm 1 GM/50 ML PLAST..BAG IV (21:35)
[2023-12-15] MEDS: Potassium Phosphate/NS 15 MMOL/250 ML PLAST..BAG 62.5 MMOL IV (21:37)
[2023-12-15 23:34] LABS: OBS Int Ctl Valid YES; OBS1 POSITIVE (NEGATIVE)
[2023-12-16] VITALS (17 sets, daily range): BP systolic 138–175; BP diastolic 76–99; PULSE 74–100; RESP 12–22; TEMP 36.3–37.7; O2SAT 92–99; BMI 26.2
[2023-12-16 00:03] LABS: Glucose, Whole Blood 131 mg/dL (60-115)
[2023-12-16] MEDS: Piperacillin Sodium/Tazobactam 4.5 GM in 0.9 % Sodium Chloride 100 ML IV ×3 (00:03→16:53)
[2023-12-16] MEDS: Ketorolac Tromethamine 30 MG/ML VIAL IVPUSH ×3 (00:07→12:27)
[2023-12-16] MEDS: 0.9 % Sodium Chloride Flush 3 ML SYRINGE IVFLUSH ×4 (00:08→21:00)
--- NOTE | 2023-12-16 03:43 | PC.NURSE ---
CARE ASSUMED 7PM...ALERT..ORIENTED X2-3..OCASSIONAL VAGUE RESPONSES TO SOME QUESTIONS...RESPIRATIONS EASY ON ROOM AIR..DENIES SOB..SAO2 95-96% AWAKE..SAO2 90-93% ASLEEP...NSR..NO ECTOPY... PER SHIFT REPORT PATIENT REMAINED WITH NUMBNESS AND LACK OF SENSATION TO RIGHT LOWER LEG FROM KNEE DOWNWARD..PER REPORT MD/PROVIDER PREVIOUSLY AWARE...ABLE TO MOVE RIGHT LEG WITHOUT DIFFICULTY...DENIES DIFFICULTY WITH LEFT LEG..SENSATION HAS IMPROVED OVERNIGHT WITH ONLY NUMBNESS NOW TO RIGHT FOOT..REPOSITIONS SELF IN BED AD-KETTY..C/O GENERALIZED BODY ACHY PAIN..TORADOL IV 12AM PER MAY..DOZING W/O DIFFICULTY AFTERWARDS...MERCADO 30-45 CC/HR..PATIENT REMAINS NPO PER REPORT D/T DYSPHAGIA ISSUES POST-RADIATION TREATMENT..TO RE-EVALUATE IN AM
[2023-12-16 05:35] LABS: Glucose, Whole Blood 133 mg/dL (60-115)
[2023-12-16 05:42] LABS: VBG Base Excess 4.3 mmol/L; VBG HCO3 27 mmol/L (22-26); VBG pCO2 33 mmHg; VBG pH 7.51 (7.32-7.43); VBG pO2 50 mmHg
[2023-12-16 05:45] LABS: MANUAL DIFF FLAG NO
[2023-12-16 05:47] LABS: Basophils Percent Auto 0.3 % (0-2); Eosinophils Percent Auto 0.3 % (0-4); Hematocrit 26.3 % (37.0-47.0); Hemoglobin 8.9 g/dl (12.0-16.0); Imm Gran Abs Auto 0.06 X10*3/uL (0.00-0.03); Imm Gran Pct Auto 0.6 % (0.0-0.4); Lymphocytes Absolute Auto 1.4 X10*3/uL (1.2-4.9); Mean Corpuscular HGB Conc 33.8 g/dl (31.0-35.0); Mean Corpuscular Hemoglobin 30.5 pg (27.0-33.0); Mean Corpuscular Volume 90.1 fL (80.0-98.0); Mean Platelet Volume 11.9 fL (9.4-12.3); Monocytes Absolute Auto 0.4 X10*3/uL (0.1-1.2); Monocytes Percent Auto 4.3 % (2-11); Neutrophils Percent Auto 80.5 % (45-73); Red Blood Count 2.92 X10*6/uL (4.20-5.50)
[2023-12-16 05:51] LABS: Platelet Count 78 X10*3/uL (160-400)
[2023-12-16 05:53] LABS: Venous Blood Gas Refer to POC result
[2023-12-16 06:03] LABS: Albumin Level 3.5 g/dL (3.5-5.0); Anion Gap 13 (12-20); Blood Urea Nitrogen 8 mg/dL (9-16); Calcium 8.6 mg/dL (8.4-10.2); Carbon Dioxide 24 mmol/L (22-29); Chloride 111 mmol/L (96-108); Creatinine Clr Calc Pharmacy 71.4; Estimated Glomerular Filt Rate > 60; Glucose Random 126 mg/dL (60-115); Magnesium 1.8 mg/dL (1.6-2.6); Phosphorus 3.1 mg/dL (2.7-4.5); Potassium 3.2 mmol/L (3.3-5.1); Sodium 145 mmol/L (135-145)
[2023-12-16] MEDS: levETIRAcetam in NaCl (iso-os) 500 MG/100 ML PIGGYBACK 400 MG IV ×2 (08:34→20:57)
[2023-12-16] MEDS: Potassium Chloride/H20 40 MEQ/100 ML PIGGYBACK 50 MEQ IV (08:53)
[2023-12-16] MEDS: cloNIDine 0.1 MG PATCH.TDWK TRANSDERMA (11:17)
--- NOTE | 2023-12-16 11:39 | PM.CCPN ---
Subjective Subjective Date of Service: 12/16/23 Critical Care Time (minutes): 35 Comment: Better yesterday, tolerating liberation from ventilator very well Physical Exam Vital Signs: Vital Signs: Last Vital Signs Temp 99.0 F 12/16/23 10:00 Pulse 85 12/16/23 10:00 Resp 18 12/16/23 10:00 BP 161/92 H 12/16/23 10:00 Pulse Ox 97 12/16/23 10:00 O2 Del Method Room Air 12/16/23 10:00 FiO2 25 12/15/23 11:30 BMI result Body Mass Index 26.2 General: Not in acute distress, Nutritional Appearance: Borderline nourished and under weight Eyes: appearance normal, both eyes and all related structures; Alignment and Position: alignment normal and position normal Neck: No lymphadenopathy, no thyromegaly Resp: bilateral air entry equal, occasional added sounds present Cardio: Regular rate, regular rhythm; Heart sounds: S1 normal heart sound present and S2 normal heart sound present GI: soft, nontender, no guarding, no hepatosplenomegaly : bladder normal to inspection, bladder normal to palpation, no renal angle tenderness Skin: no rashes or lesions noted and elasticity normal Neuro: oriented to person, oriented to place, oriented to time and moves all extremities Objective Data Labs 12/16/23 05:34 12/16/23 05:34 Labs: Laboratory Results - last 24 hr 12/15/23 12/15/23 12/15/23 12:31 17:52 19:50 WBC 11.3 H RBC 2.90 L Hgb 8.9 L Hct 26.3 L MCV 90.7 MCH 30.7 MCHC 33.8 RDW 13.1 Plt Count 80 L MPV 12.7 H Immature Gran % (Auto) 0.8 H Neut % (Auto) 82.8 H Lymph % (Auto) 11.6 L [place] % (Auto) 4.4 Eos % (Auto) 0.2 Baso % (Auto) 0.2 Lymph # (Auto) 1.3 [place] # (Auto) 0.5 Eos # (Auto) 0.0 Baso # (Auto) 0.0 Abs Immat Gran (auto) 0.09 H Absolute Neuts (auto) 9.3 H Absolute Nucleated RBC 0.000 Nucleated RBC % (auto) 0.0 VBG pH VBG pCO2 VBG pO2 VBG HCO3 VBG O2 Saturation VBG Base Excess Sodium 145 Potassium 3.4 Chloride 109 H Carbon Dioxide 26 Anion Gap 13 BUN 8 L Creatinine 0.79 Estim Creat Clear Calc 67.8 Estimated GFR > 60 POC Glucose 162 H 142 H Random Glucose 141 H Calcium 8.3 L D Phosphorus 2.6 L Magnesium 1.8 Albumin 3.5 Stool Occult Blood 12/15/23 12/15/23 12/16/23 23:20 23:57 05:31 WBC RBC Hgb Hct MCV MCH MCHC RDW Plt Count MPV Immature Gran % (Auto) Neut % (Auto) Lymph % (Auto) [place] % (Auto) Eos % (Auto) Baso % (Auto) Lymph # (Auto) [place] # (Auto) Eos # (Auto) Baso # (Auto) Abs Immat Gran (auto) Absolute Neuts (auto) Absolute Nucleated RBC Nucleated RBC % (auto) VBG pH 7.51 H VBG pCO2 33 VBG pO2 50 VBG HCO3 27 H VBG O2 Saturation 79.0 VBG Base Excess 4.3 Sodium Potassium Chloride Carbon Dioxide Anion Gap BUN Creatinine Estim Creat Clear Calc Estimated GFR POC Glucose 131 H 133 H Random Glucose Calcium Phosphorus Magnesium Albumin Stool Occult Blood POSITIVE 12/16/23 05:34 WBC 10.0 RBC 2.92 L Hgb 8.9 L Hct 26.3 L MCV 90.1 MCH 30.5 MCHC 33.8 RDW 13.0 Plt Count 78 L MPV 11.9 Immature Gran % (Auto) 0.6 H Neut % (Auto) 80.5 H Lymph % (Auto) 14.0 L [place] % (Auto) 4.3 Eos % (Auto) 0.3 Baso % (Auto) 0.3 Lymph # (Auto) 1.4 [place] # (Auto) 0.4 Eos # (Auto) 0.0 Baso # (Auto) 0.0 Abs Immat Gran (auto) 0.06 H Absolute Neuts (auto) 8.0 Absolute Nucleated RBC 0.000 Nucleated RBC % (auto) 0.0 VBG pH VBG pCO2 VBG pO2 VBG HCO3 VBG O2 Saturation VBG Base Excess Sodium 145 Potassium 3.2 L Chloride 111 H Carbon Dioxide 24 Anion Gap 13 BUN 8 L Creatinine 0.76 Estim Creat Clear Calc 71.4 Estimated GFR > 60 POC Glucose Random Glucose 126 H Calcium 8.6 Phosphorus 3.1 Magnesium 1.8 Albumin 3.5 Stool Occult Blood Microbiology Microbiology Results: Microbiology 12/13/23 16:26 Blood - Venous Blood Culture - Preliminary No growth after 48 hours. 12/13/23 16:42 Blood - Venous Blood Culture - Preliminary No growth after 48 hours. Progress Note: A&P Assessment and plan (1) Septic shock: Status: Acute (2) Acute hypoxic respiratory failure: Status: Acute (3) Aspiration into airway: Status: Acute (4) Hyperosmolar hyperglycemic state (HHS): Status: Acute (5) Substance abuse: Status: Acute (6) Respiratory arrest: Status: Acute Plan 58-year-old lady underlying history stage IV lung cancer status post XRT chemo, diabetes mellitus COPD, polysubstance abuse seizure disorder admitted on 12/13/2023 with respiratory arrest on the background of polysubstance abuse with pulmonary aspiration and shock requiring ventilatory and pressor support. Also noted to have pancreatitis. Started on IV fluids and empirically covered with broad-spectrum antibiotics. She was extubated yesterday, tolerated liberation from ventilator well. She has history of dysphagia, speech cleared her for thin liquid diet Acute hypoxemic respiratory failure: Secondary to aspiration pneumonia Patient is treated with Zosyn, which we can downgrade to Augmentin Extubated yesterday, tolerating liberation from ventilator very well Acute encephalopathy: Secondary to drug overdose UDS positive for methadone, cocaine, fentanyl, benzodiazepine upon admission Currently improved On as needed Xanax to prevent withdrawals Added clonidine patch to prevent withdrawals Hypertension: Possibly secondary to withdrawals Added clonidine patch We will do as needed hydralazine pushes Pancreatitis: Lipase 192 upon admission, but currently patient is not complaining of any abdominal pain entry fasting for diet. As the patient also has transaminitis we will order ultrasound abdomen to rule out any obstructive CBD pathology Anemia: drop in hb since admission normocytic anemia, stool for occult blood positive needs elective GI workup. Prophylaxis: SCD Quality Stroke Does the patient have a stroke diagnosis?: No VTE Prior VTE?: No VTE Risk Level:: Medical - moderate - high VTE Device Contraindication: N/A - Device Ordered VTE Drug Contraindication: N/A - Med Ordered
--- NOTE | 2023-12-16 13:29 | PC.NURSE ---
central line pulled at noon and foss out at 1100. pt transferred out of ICU at 1322 in bed.
[2023-12-16 13:43] LABS: Glucose, Whole Blood 292 mg/dL (60-115)
[2023-12-16] MEDS: Insulin Lispro 100 UNIT/ML 3 ML VIAL SUBCUT ×3 (13:49→20:57)
--- NOTE | 2023-12-16 14:52 | MHC.SL.SWA ---
Speech Pathologist Impression: Mild pharyngeal dysphagia s/p extubation, hx of esophageal dysphagia (managed by diet modifications, GI consult) Risk of Aspiration Due to: Medically Fragile Hx of Recent Extubation Weak Cough Dysphasia Diet Status: Liquid Consistency and Strategies for Safe Swallow: Liquid Intake Recommendation: Thin Liquid Intake Strategies: Solid Food Consistency: Dietary Recommendations: Pureed (NDD1) Additional Modifications to Solid Foods: Oral Medication Intake: Whole with Liquid Please contact the pharmacy regarding appropriate crushable or liquid drug formulations that are available whenever modified delivery is recommended. Compensatory Strategies and Precautions to be Taken for Safe Swallow: Sitting Upright (90 deg) Small Bites and Sips Alternate Liquids/Solids Rate of Ingestion Change Supervision While Eating and Drinking for Safe Swallow: None Needed Foods to Avoid: Swallowing Recommended Treatments: Compens. Strategy Educat. Recommendation for Speech: Inpatient Speech Therapy Comment: Diet and safety modifications as indicated Frequency/Duration: M-F Daily Date Range for Service Req: Timeline to reassess: Animal Shelter Supervisor Clinican/Clinical Fellow: No Supervisory Statement: I have reviewed and agree with the student/clinical fellow's documentation: N/A Speech Language Pathologist: Gwen Bass M.S. [facility]-DEBT MANAGEMENT COUNSELOR
[2023-12-16] MEDS: ALPRAZolam 0.5 MG TABLET 1 MG PO (15:03)
--- NOTE | 2023-12-16 16:20 | PM.EVENT ---
Event Note Date of Service: 12/16/23 Event Note: GI Consult-Full note dictated Imp: Self-limited UGI bleed and mild pancreatitits in the setting of a suspected seizure and polysubstance abuse based on her tox screen. I suspect the UGI bleed could be from a resolving Mary-Murphy tear, esophagitis, and/or gastritis. The mild changes of pancreatitis could be from hypotension on presentation, but at this point does not seem to be clinically significant. She presently appears stable from a GI standpoint. Rec: Continue PPI, diet as tolerated, F/U labs, check abdominal U/S. I don't think she needs an upper endoscopy at this time. Please advise me if I can be of any further assistance here in the hospital. D/W patient. Thanks Time Spent With Patient Time: Total time managing care of this patient today ____ minutes.
[2023-12-16 18:19] LABS: Glucose, Whole Blood 184 mg/dL (60-115)
[2023-12-16 20:46] LABS: Glucose, Whole Blood 247 mg/dL (60-115)
[2023-12-16] MEDS: cloNIDine HCL 0.1 MG TABLET PO (20:56)
--- NOTE | 2023-12-16 21:19 | PC.NURSE ---
Addendum entered by Maile Mccormick RN 12/17/23 02:33: The patient denies any further complaints of pain. Pt appears calm without any noted anxiety or agitation since her has been present at the bedside. Pt requested snacks which were provided and pt tolerated. Then ambulated in donohue with standby. Voiding in bathroom. Denies pelvic pressure or discomfort at rest or to palpation, states she feels she is emptying her bladder. Bed alarm on and safety measures continue, reinforced with patient and her . Plan of care continues. Addendum entered by Maile Mccormick RN 12/17/23 00:04: Patient continues to demand toradol despite education attempts, demanded camera be removed from room as she feels staff are watching her . Patient educated that camera is to assist with monitoring for seizure activity, to assist with alerting RN if occurs. Further discussion with patient and attempts made to gently educate on why toradol was discontinued for bleeding risk. Pt visibly agitated during this and began making accusatory statements towards staff. Pt then requested ambien for sleep. Dr Cardenas notified of patient request for pain meds, ambien. Dr. Cardenas orders to give ambien instead of prn xanax. No additional orders for pain meds at this time. Non-pharmacological pain management including heat and cold packs, warm blankets offered though patient declined. Camera removed per patient request. Patient's now at bedside for emotional support. Original Note: Assumed care of patient at 19:00. Patient requesting prn toradol this evening for reported generalized aching. Patient vague when attempted to assess/asked to describe pain further. Dr. Murphy GI note detailing UGI bleed was reviewed with covering Dr. Cardenas via tigertext; business writer requested clarification if okay to give prn toradol given GI note. Dr. Cardenas written order to hold toradol. Order was discontinued and order for tramadol was placed by . This was discussed with the patient, though she refused this, stated I can't take that, it gives me seizures . Of note, tramadol is not listed currently in patient allergies (erwin aetaminophen and ibuprofen). Dr. Cardenas was notified. Awaiting further orders at this time. VSS. No signs of bleeding noted on assessment. In-room camera and seizure precautions placed for safety as well as bed alarm/high fall measures. Scheduled keppra IV given. Plan of care continues.
[2023-12-16] MEDS: Zolpidem Tartrate 5 MG TABLET PO (23:09)
[2023-12-17] MEDS: Piperacillin Sodium/Tazobactam 4.5 GM in 0.9 % Sodium Chloride 100 ML IV ×3 (01:13→17:37)
--- NOTE | 2023-12-17 03:03 | CONS_ITS ---
DATE OF SERVICE: 12/16/2023 REASON FOR CONSULTATION: Coffee-ground emesis and pancreatitis. HISTORY OF PRESENT ILLNESS: This has been obtained from the patient and from the medical record. The patient is a 58-year-old female well known to me from her previous history of a radiation-induced esophageal stricture and a recent hospitalization for what appeared to have been a gastroenteritis. I last saw the patient in mid November, when she was admitted for evaluation of vomiting, diarrhea, and some abdominal discomfort along with an abnormal CT scan of the GI tract in which there appeared to be some thickening of the terminal ileum. During the hospitalization, she did seem to improve with supportive care. She subsequently left the hospital about 3 weeks ago, was brought to the hospital on this admission after being found at home with what appeared to have been a possible seizure. She was found to have some coffee-ground emesis, but no hematemesis was described. The patient apparently required some CPR in the ER and intubation, but ultimately that all resolved and she has not been on the medical floor. The patient has had no further vomiting here in the hospital. She denies any diarrhea, hematochezia, nor melena. She has been tolerating a full liquid diet. She denies using any aspirin nor NSAIDs on a chronic basis and has been on omeprazole according to her medication list. She presently denies any abdominal pain. She had not noticed any jaundice at home. She denies any alcohol use. However, her toxicology screen came back positive with methadone, fentanyl, benzodiazepines, and cocaine on the urine toxicology screen. CURRENT MEDICATIONS: Include Xanax p.r.n., clonidine, hydralazine p.r.n., insulin, Toradol p.r.n., Keppra, omeprazole 20 mg daily, IV Zosyn, sumatriptan. PAST MEDICAL HISTORY: Radiation-induced proximal esophageal stricture that has been dilated multiple times with some gradual clinical improvement. Her most recent barium swallow in September described some slight narrowing at the mid esophagus, but without any signs of mass or ulceration. There was some esophageal dysmotility. A barium tablet was hung up at the level of the mid esophagus. 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 This was treated with radiation and chemotherapy. Multiple upper endoscopies with balloon dilation of the proximal esophageal stricture with the most recent endoscopy in July 2020. Colonoscopy in 2019 with the finding of a mild diffuse colitis felt to be possibly related to her ongoing chemotherapy at that time. She also has COPD, depression, anxiety, panic attacks, seizures, tachycardia, and diabetes mellitus. PAST SURGICAL HISTORY: She has had cholecystectomy, shoulder surgery, tonsillectomy, and dental surgery. FAMILY HISTORY: Father had pancreatic cancer. There is no family history of colorectal cancer. SOCIAL HISTORY: She does smoke. She denies alcohol use of any significant amount. REVIEW OF SYSTEMS: CONSTITUTIONAL: She has been feeling at her baseline at home up until the presumed seizure occurred. CARDIAC: No chest pain. PULMONARY: No coughing or hemoptysis. GI: As above. URINARY: No dysuria. No hematuria. PHYSICAL EXAMINATION: GENERAL: Again the patient is a pleasant, alert, comfortable-appearing female, lying in bed. SKIN: Warm and dry. HEENT: Anicteric sclerae. Moist mucous membranes. CARDIAC: Normal S1, S2. ABDOMEN: Soft, nondistended, nontender. LABORATORY DATA: Urine toxicology screen was positive for methadone, fentanyl, benzodiazepines, and cocaine. Sodium 145, potassium 3.2, BUN 8, creatinine 0.8, glucose 126. Albumin 3.5. White blood cell count 10,000, hemoglobin 8.9, platelets 78,000. PT 12.7 and INR 1.1. Stools positive for occult blood. She had multiple imaging studies which included a CT of the abdomen and pelvis. This describes a normal-appearing liver. There was some evidence of pancreatitis on the CT scan. The GI tract appeared normal on the CT scan. Her lipase was slightly elevated at 353 on admission and repeat was 192. IMPRESSION AND PLAN: Patient is a 58-year-old female presenting to the ER with an apparent seizure and polysubstance use based on her urine toxicology screen. She has some reported coffee-grounds emesis, but no sign of any active bleeding. She has had no further vomiting, nor any further signs of bleeding. Given her clinical history, I suspect this represents bleeding from either some esophagitis, Mary-Murphy tear, gastritis, or even ulcer disease; however at this point, she appears very stable. Given all of her previous endoscopies as well as a barium swallow this past September, I do not think an upper endoscopy is currently required, particularly in light of her current status of having a resolving cardiac arrest and seizure. At this point I would continue treatment with omeprazole and diet as tolerated. I will continue to follow her blood counts. I did advise that she obviously needs to avoid all drugs. In regard to the mild changes of pancreatitis, I do not think this is clinically significant at this time given the lack of any symptoms. She did have hypotension, requiring CPR which she first got here and the pancreatitis may be related to that. She is status post cholecystectomy and an ultrasound of the right upper quadrant is currently pending in regard to the bile ducts. However, assuming there is no sign of any biliary disease, I do not think any other etiology would need to be pursued in regard to the pancreatitis at this time. At this point, if things remain stable I do not think she will need any further intervention on my part. I do not think she needs an upper endoscopy at this time. However, please advise me if I can be of any further assistance here in the hospital. I did review this with the patient. MD SHEREEN Patel/BALTAZAR / [phone]
[2023-12-17 03:22] VITALS: BP 156/85; PULSE 86; RESP 18; TEMP 36.8; O2SAT 98
[2023-12-17] MEDS: Omeprazole 20 MG CAPSULE.DR PO (06:40)
[2023-12-17 06:50] LABS: Hematocrit 24.9 % (37.0-47.0); Hemoglobin 8.5 g/dl (12.0-16.0); Mean Corpuscular HGB Conc 34.1 g/dl (31.0-35.0); Mean Corpuscular Hemoglobin 30.2 pg (27.0-33.0); Mean Corpuscular Volume 88.6 fL (80.0-98.0); Mean Platelet Volume 12.7 fL (9.4-12.3); Platelet Count 93 X10*3/uL (160-400); Red Blood Count 2.81 X10*6/uL (4.20-5.50); Red Cell Distribution Width 12.8 % (11.0-16.0); White Blood Count 7.3 X10*3/uL (4.8-10.8)
[2023-12-17 07:30] LABS: Glucose, Whole Blood 108 mg/dL (60-115)
[2023-12-17 07:31] LABS: Alanine Aminotransferase 110 U/L (0-31); Albumin Level 3.3 g/dL (3.5-5.0); Alkaline Phosphatase 63 U/L (39-117); Anion Gap 10 (12-20); Aspartate Amino Transferase 159 U/L (5-31); Bilirubin Direct 0.3 mg/dL (0.0-0.5); Bilirubin Total 0.7 mg/dL (0.0-1.0); Blood Urea Nitrogen 7 mg/dL (9-16); Calcium 8.6 mg/dL (8.4-10.2); Carbon Dioxide 27 mmol/L (22-29); Chloride 111 mmol/L (96-108); Creatinine Clr Calc Pharmacy 76.4; Estimated Glomerular Filt Rate > 60; Glucose Random 140 mg/dL (60-115); Potassium 2.8 mmol/L (3.3-5.1); Sodium 145 mmol/L (135-145); Total Protein 5.5 g/dL (6.5-8.0)
[2023-12-17 07:49] LABS: LDL Cholesterol Direct 36 mg/dL (<100)
[2023-12-17 08:00] VITALS: BP 186/96; PULSE 83; RESP 20; TEMP 37.1; O2SAT 99
[2023-12-17] MEDS: Potassium Chloride/H20 10 MEQ/100 ML PIGGYBACK 100 MEQ IV (08:05)
[2023-12-17] MEDS: levETIRAcetam in NaCl (iso-os) 500 MG/100 ML PIGGYBACK 400 MG IV ×2 (08:05→21:43)
[2023-12-17] MEDS: Potassium Chloride Packet 20 MEQ PACKET 40 MEQ PO ×2 (08:06→10:46)
[2023-12-17 08:20] VITALS: BMI 26.7
[2023-12-17] MEDS: cloNIDine HCL 0.1 MG TABLET PO ×3 (08:26→21:42)
[2023-12-17] MEDS: 0.9 % Sodium Chloride Flush 3 ML SYRINGE IVFLUSH ×3 (08:28→21:43)
--- NOTE | 2023-12-17 09:24 | MHC.RECOVRN ---
Met with pt in 467, along with transformation coach Govind, after consult placed to Addiction Medicine for substance use. Pt had presented to the ED on 12/12 after being found unresponsive at home, covered in coffee ground vomit and stool. Pt had been intubated and admitted to ICU, extubated on 12/14. Per ICU H&P, pt has a past medical history of lung cancer (status post chemotherapy), radiation induced esophagitis, diabetes mellitus, COPD, asthma,?polysubstance abuse,?seizure disorder, hypothyroidism and depression admitted to ICU for acute respiratory failure due acute intoxication with multiple substances. Pts UDS positive for methadone, fentanyl, benzodiazepines (prescribed), and cocaine. Per ICU provider, these substances were likely the reason for vomiting and sudden respiratory arrest, did not believe it was an acute seizure. Pt laying in bed, awake, alert, engages in conversation, guarded. Pt reports reason for admission was a seizure. Educated pt on the way she presented to the hospital and UDS results. Pt denies substance use, reports she only takes medications as prescribed. Pt denies taking medication from other people. Denies history of ever using substances. Pt reports she has had family members from overdose. Educated pt on risk of overdose with non-prescribed medications, including pressed pills. Pt denies withdrawal symptoms, reports she is only feeling pain all over. Educated pt regarding Narcan, pt reports she has completed Narcan training in the past. Informed pt she will be sent home with Narcan, pt agreeable. Encouraged pt to reach out with questions or concerns. Denies questions or concerns at this time. Discussed with Aziza Harrison APRN.
--- NOTE | 2023-12-17 09:43 | HO.PM.IMPN ---
Subjective Subjective Date of Service: 12/17/23 Interval History: Seen and evaluated this morning complaining of generalized pain No reported overnight events K of 2.8 BP elevated at 180s Review of Systems Review of Systems: Yes all other systems are reviewed and are negative Physical Exam Vital Signs: Vital Signs: Last Vital Signs Temp 98.7 F 12/17/23 08:00 Pulse 83 12/17/23 08:00 Resp 20 12/17/23 08:00 BP 186/96 H 12/17/23 08:00 Pulse Ox 99 12/17/23 08:00 O2 Del Method Room Air 12/17/23 08:00 FiO2 25 12/15/23 11:30 BMI result Body Mass Index 26.7 Const: Other: Constitutional : Awake, interactive, in mild distress from pain Neck : Normal inspection, Supple Cardiovascular : RRR, no JVP, no lower extremity edema Respiratory : fair bilateral air entry, no crackles, wheezes or rhonchi Gastrointestinal: soft, lax, Normal bowel sounds, Non tender Skin : Warm, Dry Neurological : Alert & oriented x3, No focal deficit Objective Data Active Medications Alprazolam (Alprazolam 0.5 Mg Tablet) 1 mg PO TID PRN PRN Reason: anxiety Last Admin: 12/16/23 15:03 Dose: 1 mg Documented By: CHEYANNE Amlodipine Besylate (Amlodipine Besylate 5 Mg Tablet) 5 mg PO DAILY [facility]; Protocol Clonidine HCl (Clonidine Hcl 0.1 Mg Tablet) 0.1 mg PO TID [facility]; Protocol Glucose (Glucose Gel 15 Gm Gel..Gram.) 15 gm PO Q15M PRN; Protocol PRN Reason: per Hypoglycemia Standing Ord. Hydralazine HCl (Hydralazine Hcl 20 Mg/Ml Vial) 10 mg IVPUSH Q4H PRN; Protocol PRN Reason: SBP > 160 Dextrose (D10) 250 mls @ 750 mls/hr IV Q30M PRN PRN Reason: BG <70 Piperacillin Sod/Tazobactam (Sod 4.5 gm/ Sodium Chloride) 100 mls @ 200 mls/hr IV Q8H [facility] Last Infusion: 12/17/23 01:43 Dose: Infused Documented By: NANNETTE Levetiracetam (Keppra) 500 mg in 100 mls @ 400 mls/hr IV BID [facility] Last Admin: 12/17/23 08:05 Dose: 400 mls/hr Documented By: GENTRY Dextrose (D10) 250 mls @ 750 mls/hr IV Q15M PRN; Protocol PRN Reason: per Hypoglycemia Standing Ord. Insulin Human Lispro (Insulin Lispro 100 Unit/Ml 3 Ml Vial) 0 unit SUBCUT QIDACHS [facility]; Protocol Last Admin: 12/17/23 08:28 Dose: Not Given Documented By: GENTRY Non-Admin Reason: No Insulin Coverage Methocarbamol (Methocarbamol 500 Mg Tablet) 500 mg PO TID [facility] Omeprazole (Omeprazole 20 Mg Capsule.Dr) 20 mg PO DAILY@0630 [facility] Last Admin: 12/17/23 06:40 Dose: 20 mg Documented By: LAVONNE Sodium Chloride (0.9 % Sodium Chloride Flush 3 Ml Syringe) 3 ml IVFLUSH QSHIFT [facility] Last Admin: 12/17/23 08:28 Dose: 3 ml Documented By: GENTRY Sumatriptan Succinate (Sumatriptan Succinate 100 Mg Tablet) 100 mg PO DAILY MRX1 PRN PRN Reason: migraine Labs 12/17/23 06:05 12/17/23 06:05 Labs: Laboratory Results - last 24 hr 12/14/23 12/16/23 12/16/23 04:32 13:40 18:15 MCV MCH MCHC RDW Plt Count MPV Absolute Nucleated RBC Nucleated RBC % (auto) Anion Gap Estim Creat Clear Calc Estimated GFR POC Glucose 292 H 184 H Random Glucose Calcium Total Bilirubin Direct Bilirubin AST ALT Alkaline Phosphatase Total Protein Albumin LDL Cholesterol Direct 36 12/16/23 12/17/23 12/17/23 20:43 06:05 07:23 MCV 88.6 MCH 30.2 MCHC 34.1 RDW 12.8 Plt Count 93 L MPV 12.7 H Absolute Nucleated RBC 0.000 Nucleated RBC % (auto) 0.0 Anion Gap 10 L Estim Creat Clear Calc 76.4 Estimated GFR > 60 POC Glucose 247 H 108 Random Glucose 140 H Calcium 8.6 Total Bilirubin 0.7 Direct Bilirubin 0.3 AST 159 H ALT 110 H Alkaline Phosphatase 63 Total Protein 5.5 L Albumin 3.3 L LDL Cholesterol Direct Assessment and Plan (1) Septic shock: Status: Acute (2) Acute hypoxic respiratory failure: Status: Acute (3) Substance abuse: Status: Acute (4) Acute pancreatitis: Status: Acute (5) Acute hypokalemia: Status: Acute (6) Acute on chronic anemia: Status: Acute Plan 58-year-old lady underlying history stage IV lung cancer status post XRT chemo, diabetes mellitus COPD, polysubstance abuse seizure disorder admitted on 12/13/2023 with respiratory arrest on the background of polysubstance abuse with pulmonary aspiration and shock requiring ventilatory and pressor support. Also noted to have pancreatitis. Started on IV fluids and empirically covered with broad-spectrum antibiotics. She was extubated yesterday, tolerated liberation from ventilator well. She has history of dysphagia, speech cleared her for thin liquid diet Acute hypoxemic respiratory failure 2/2 aspiration pneumonia Weaned down to RA Treated with Zosyn, switch to Augmentin upon discharge Acute encephalopathy Secondary to drug overdose with withdrawal Urine Tox +ve for methadone, cocaine, fentanyl, benzodiazepine PRN Xanax for anxiety\withdrawals On home dose Clonidine Addiction team consult PRN Oxycodone for pain control PT eval Acute hypokalemia K of 2.8, replacement given follow BMP Swallowing problem KITCHEN STEWARD following, advance diet as tolerated Hypertension, uncontrolled Continue Home Clonidine 0.1 mg tid Add Amlodipine 5 mg watch for hx of postural hypotension before Elevated Lipase CT showing mild form of Pancreatitis no reported abdominal pain and tolerating PO US negative for any obstruction GI recommended no intervention as the abnormalitis likely related to septic shock and resuscitation process Acute on chronic anemia 2/2 GIB Positive occult drop in Hb from 12 to 8.5 since admission GI thinks it is related to MW\Gastric bleed on presentation that resolved, no EGD needed now PPI Prophylaxis: SCD The patient will need overnight stay for treatment of drug overdose with withdrawal pending addiction team eval, monitoring Hb level for likely GIB Quality Stroke Does the patient have a stroke diagnosis?: No VTE Prior VTE?: No VTE Risk Level:: Medical - moderate - high VTE Device Contraindication: N/A - Device Ordered VTE Drug Contraindication: N/A - Med Ordered
--- NOTE | 2023-12-17 10:41 | MHC.SLORD ---
Speech Language Pathology Order Status: Pt c/o too much pain today, unable to participate in dysphagia tx. ST to return as appropriate.
[2023-12-17] MEDS: amLODIPine Besylate 5 MG TABLET PO (10:47)
[2023-12-17 11:23] LABS: Glucose, Whole Blood 254 mg/dL (60-115)
[2023-12-17 12:00] VITALS: BP 152/72; PULSE 84; RESP 20; TEMP 36.8; O2SAT 99
[2023-12-17] MEDS: oxyCODONE HCl Immed Release 5 MG TABLET PO (12:27)
[2023-12-17] MEDS: ALPRAZolam 0.5 MG TABLET 1 MG PO (12:27)
[2023-12-17] MEDS: Insulin Lispro 100 UNIT/ML 3 ML VIAL SUBCUT ×2 (12:28→17:35)
[2023-12-17 13:36] LABS: Hematocrit 27.3 % (37.0-47.0); Mean Corpuscular Hemoglobin 29.7 pg (27.0-33.0); Mean Corpuscular Volume 90.1 fL (80.0-98.0); Mean Platelet Volume 12.1 fL (9.4-12.3); Red Blood Count 3.03 X10*6/uL (4.20-5.50); Red Cell Distribution Width 12.8 % (11.0-16.0); White Blood Count 7.1 X10*3/uL (4.8-10.8)
[2023-12-17 13:38] LABS: Platelet Count 89 X10*3/uL (160-400)
[2023-12-17 14:18] LABS: Anion Gap 10 (12-20); Blood Urea Nitrogen 7 mg/dL (9-16); Calcium 8.3 mg/dL (8.4-10.2); Carbon Dioxide 24 mmol/L (22-29); Chloride 111 mmol/L (96-108); Creatinine Clr Calc Pharmacy 65.1; Estimated Glomerular Filt Rate > 60; Glucose Random 315 mg/dL (60-115); Potassium 3.8 mmol/L (3.3-5.1); Sodium 141 mmol/L (135-145)
[2023-12-17 16:00] VITALS: BP 142/78; PULSE 92; RESP 18; TEMP 36.4; O2SAT 98
[2023-12-17 17:02] LABS: Glucose, Whole Blood 189 mg/dL (60-115)
[2023-12-17 20:00] VITALS: BP 152/79; PULSE 84; RESP 16; TEMP 36.3; O2SAT 100
[2023-12-17 20:36] LABS: Glucose, Whole Blood 126 mg/dL (60-115)
[2023-12-17] MEDS: methocarbamoL 500 MG TABLET PO (21:43)
[2023-12-18] VITALS (7 sets, daily range): BP systolic 103–140; BP diastolic 47–83; PULSE 75–90; RESP 16–20; TEMP 36–36.9; O2SAT 95–100; BMI 26.2
[2023-12-18] MEDS: Piperacillin Sodium/Tazobactam 4.5 GM in 0.9 % Sodium Chloride 100 ML IV ×3 (00:27→17:49)
[2023-12-18] MEDS: oxyCODONE HCl Immed Release 5 MG TABLET PO ×4 (00:33→21:29)
[2023-12-18] MEDS: Zolpidem Tartrate 5 MG TABLET PO (00:33)
[2023-12-18] MEDS: Omeprazole 20 MG CAPSULE.DR PO (05:37)
[2023-12-18 06:59] LABS: Hematocrit 26.1 % (37.0-47.0); Hemoglobin 8.9 g/dl (12.0-16.0); Mean Corpuscular HGB Conc 34.1 g/dl (31.0-35.0); Mean Corpuscular Volume 90.9 fL (80.0-98.0); Mean Platelet Volume 12.3 fL (9.4-12.3); Platelet Count 107 X10*3/uL (160-400); Red Blood Count 2.87 X10*6/uL (4.20-5.50); White Blood Count 6.2 X10*3/uL (4.8-10.8)
[2023-12-18 07:16] LABS: Anion Gap 11 (12-20); Blood Urea Nitrogen 9 mg/dL (9-16); Calcium 8.4 mg/dL (8.4-10.2); Carbon Dioxide 23 mmol/L (22-29); Chloride 109 mmol/L (96-108); Estimated Glomerular Filt Rate > 60; Glucose Random 193 mg/dL (60-115); Potassium 3.6 mmol/L (3.3-5.1); Sodium 139 mmol/L (135-145)
[2023-12-18 07:49] LABS: Glucose, Whole Blood 165 mg/dL (60-115)
[2023-12-18] MEDS: cloNIDine HCL 0.1 MG TABLET PO ×3 (08:31→21:00)
[2023-12-18] MEDS: Insulin Lispro 100 UNIT/ML 3 ML VIAL SUBCUT ×3 (08:32→21:00)
[2023-12-18] MEDS: 0.9 % Sodium Chloride Flush 3 ML SYRINGE IVFLUSH ×2 (08:32→21:00)
[2023-12-18] MEDS: levETIRAcetam in NaCl (iso-os) 500 MG/100 ML PIGGYBACK 400 MG IV (08:32)
[2023-12-18] MEDS: amLODIPine Besylate 5 MG TABLET PO (08:35)
--- NOTE | 2023-12-18 11:08 | HO.PM.IMPN ---
Subjective Subjective Date of Service: 12/18/23 Interval History: body aches Physical Exam Vital Signs: Vital Signs: Last Vital Signs Temp 98.3 F 12/18/23 07:29 Pulse 75 12/18/23 07:29 Resp 18 12/18/23 07:29 BP 132/63 12/18/23 07:29 Pulse Ox 95 12/18/23 07:29 O2 Del Method Room Air 12/18/23 07:29 FiO2 25 12/15/23 11:30 BMI result Body Mass Index 26.2 Const: Other: Constitutional : Awake, interactive, in mild distress from pain Neck : Normal inspection, Supple Cardiovascular : RRR, no JVP, no lower extremity edema Respiratory : fair bilateral air entry, no crackles, wheezes or rhonchi Gastrointestinal: soft, lax, Normal bowel sounds, Non tender Skin : Warm, Dry Neurological : Alert & oriented x3, No focal deficit Objective Data Active Medications Alprazolam (Alprazolam 0.5 Mg Tablet) 1 mg PO TID PRN PRN Reason: anxiety Last Admin: 12/17/23 12:27 Dose: 1 mg Documented By: GENTRY Amlodipine Besylate (Amlodipine Besylate 5 Mg Tablet) 5 mg PO DAILY [facility]; Protocol Last Admin: 12/18/23 08:35 Dose: 5 mg Documented By: GENTRY Clonidine HCl (Clonidine Hcl 0.1 Mg Tablet) 0.1 mg PO TID [facility]; Protocol Last Admin: 12/18/23 08:31 Dose: 0.1 mg Documented By: GENTRY Fluoxetine HCl (Fluoxetine Hcl 20 Mg Capsule) 80 mg PO DAILY@1500 [facility] Glucose (Glucose Gel 15 Gm Gel..Gram.) 15 gm PO Q15M PRN; Protocol PRN Reason: per Hypoglycemia Standing Ord. Hydralazine HCl (Hydralazine Hcl 20 Mg/Ml Vial) 10 mg IVPUSH Q4H PRN; Protocol PRN Reason: SBP > 160 Hydroxyzine HCl (Hydroxyzine Hcl 50 Mg Tablet) 50 mg PO BID [facility] Dextrose (D10) 250 mls @ 750 mls/hr IV Q30M PRN PRN Reason: BG <70 Piperacillin Sod/Tazobactam (Sod 4.5 gm/ Sodium Chloride) 100 mls @ 200 mls/hr IV Q8H [facility] Last Infusion: 12/18/23 00:57 Dose: Infused Documented By: ANDREEA Dextrose (D10) 250 mls @ 750 mls/hr IV Q15M PRN; Protocol PRN Reason: per Hypoglycemia Standing Ord. Insulin Human Lispro (Insulin Lispro 100 Unit/Ml 3 Ml Vial) 0 unit SUBCUT QIDACHS [facility]; Protocol Last Admin: 12/18/23 08:32 Dose: 2 unit Documented By: GENTRY Levetiracetam (Levetiracetam 500 Mg Tablet) 500 mg PO BID [facility] Omeprazole (Omeprazole 20 Mg Capsule.Dr) 20 mg PO DAILY@0630 [facility] Last Admin: 12/18/23 05:37 Dose: 20 mg Documented By: ANDREEA Oxycodone HCl (Oxycodone Hcl Immed Release 5 Mg Tablet) 5 mg PO Q4H PRN PRN Reason: Pain, Severe (Pain Scale 7-10) Sodium Chloride (0.9 % Sodium Chloride Flush 3 Ml Syringe) 3 ml IVFLUSH QSHIFT [facility] Last Admin: 12/18/23 08:32 Dose: 3 ml Documented By: GENTRY Sumatriptan Succinate (Sumatriptan Succinate 100 Mg Tablet) 100 mg PO DAILY MRX1 PRN PRN Reason: migraine Zolpidem Tartrate (Zolpidem Tartrate 5 Mg Tablet) 10 mg PO BEDTIME [facility] Labs 12/18/23 06:18 12/18/23 06:18 Labs: Laboratory Results - last 24 hr 12/17/23 12/17/23 12/17/23 11:16 13:13 16:18 MCV 90.1 MCH 29.7 MCHC 33.0 RDW 12.8 Plt Count 89 L MPV 12.1 Absolute Nucleated RBC 0.000 Nucleated RBC % (auto) 0.0 Anion Gap 10 L Estim Creat Clear Calc 65.1 Estimated GFR > 60 POC Glucose 254 H 189 H Random Glucose 315 H Calcium 8.3 L 12/17/23 12/18/23 12/18/23 20:31 06:18 07:36 MCV 90.9 MCH 31.0 MCHC 34.1 RDW 13.0 Plt Count 107 L MPV 12.3 Absolute Nucleated RBC 0.000 Nucleated RBC % (auto) 0.0 Anion Gap 11 L Estim Creat Clear Calc 75.0 Estimated GFR > 60 POC Glucose 126 H 165 H Random Glucose 193 H Calcium 8.4 Assessment and Plan (1) Septic shock: Status: Acute (2) Acute hypoxic respiratory failure: Status: Acute (3) Substance abuse: Status: Acute (4) Acute pancreatitis: Status: Acute (5) Acute hypokalemia: Status: Acute (6) Acute on chronic anemia: Status: Acute Plan 58F PMH stage IV lung cancer status post XRT chemo, diabetes mellitus COPD, polysubstance abuse, seizure disorder admitted on 12/13/2023 with respiratory arrest on the background of polysubstance abuse with pulmonary aspiration and shock requiring ventilatory and pressor support. Also noted to have pancreatitis. Started on IV fluids and empirically covered with broad-spectrum antibiotics. She was extubated 12/15/23, downgraded to medical floor 12/16/23 Acute hypoxemic respiratory failure 2/2 aspiration pneumonia Weaned down to RA Treated with Zosyn, switch to Augmentin upon discharge Acute metabolic encephalopathy, likely polypharmacy Urine Tox +ve for methadone, cocaine, fentanyl, benzodiazepine PRN Xanax for anxiety\withdrawals On home dose Clonidine Addiction team appreciated PRN Oxycodone for pain control PT - recomending home with family support Acute hypokalemia resolved dysphagia now on regular solids, thin liquids Hypertension, uncontrolled Continue Home Clonidine 0.1 mg tid Added Amlodipine 5 mg seizure disorder keppra Elevated Lipase CT showing mild form of Pancreatitis no reported abdominal pain and tolerating PO US negative for any obstruction GI recommended no intervention as the abnormalitis likely related to septic shock and resuscitation process Acute on chronic anemia 2/2 GIB Positive occult drop in Hb from 12 to 8.5 since admission GI thinks it is related to MW\Gastric bleed on presentation that resolved, no EGD needed now PPI Prophylaxis: SCD reason for continued hospitalization:pain control Quality Stroke Does the patient have a stroke diagnosis?: No VTE Prior VTE?: No VTE Risk Level:: Medical - moderate - high VTE Device Contraindication: N/A - Device Ordered VTE Drug Contraindication: N/A - Med Ordered
[2023-12-18 11:43] LABS: Glucose, Whole Blood 138 mg/dL (60-115)
--- NOTE | 2023-12-18 11:59 | MHC.SL.SWA ---
Speech Pathologist Impression: Oropharyngeal swallow WFL, pt has hx of esophageal dysphagia Risk of Aspiration Due to: Medically Complex Hx of Recent Extubation Hx of GI involvement Dysphasia Diet Status: Mild pharyngeal dysphagia s/p extubation has resolved, pre-existing esophageal dysphagia (managed by diet modifications and GI consultation), pt is edentulous, reported she is on soft diet at baseline, family has brought in food for pt as she did not like purees. Bedside re-eval today, oropharyngeal coordination WFL, no overt s/s of aspiration. Cough occurred x2 during intake as pt speaking throughout meal, considered WNL as voice clear, cough efficient, did not occur immediately after swallow. Education provided to pt on safety of PO intake, pt verbalized understanding and is waiting for GI consult in determining most appropriate management of esophageal dysphagia. Liquid Consistency and Strategies for Safe Swallow: Liquid Intake Recommendation: Thin Liquid Intake Strategies: Solid Food Consistency: Dietary Recommendations: Regular Additional Modifications to Solid Foods: Oral Medication Intake: Whole with Liquid Please contact the pharmacy regarding appropriate crushable or liquid drug formulations that are available whenever modified delivery is recommended. Compensatory Strategies and Precautions to be Taken for Safe Swallow: Sitting Upright (90 deg) Alternate Liquids/Solids Avoid Specific Foods Supervision While Eating and Drinking for Safe Swallow: None Needed Foods to Avoid: Refer to GI recommendations Swallowing Recommended Treatments: Compens. Strategy Educat. Recommendation for Speech: Inpatient Speech Therapy Comment: Diet and safety modifications as indicated Frequency/Duration: M-F Daily Date Range for Service Req: Timeline to reassess: Zoology Technical Officer Clinican/Clinical Fellow: No Supervisory Statement: I have reviewed and agree with the student/clinical fellow's documentation: N/A Speech Language Pathologist: Gwen Bass M.S. [facility] BUS DRIVER
--- NOTE | 2023-12-18 15:26 | MHC.CM.PN ---
Per MD rounds may discharge tomorrow. DP home resume [employer] services. A referral has been sent to [facility] at the patients request. DP home with services. She may need assist with transportation.
[2023-12-18 16:13] LABS: Glucose, Whole Blood 180 mg/dL (60-115)
[2023-12-18] MEDS: levETIRAcetam 500 MG TABLET PO (21:00)
[2023-12-18 21:27] LABS: Glucose, Whole Blood 168 mg/dL (60-115)
[2023-12-18] MEDS: Zolpidem Tartrate 5 MG TABLET 10 MG PO (21:28)
[2023-12-19] VITALS (8 sets, daily range): BP systolic 128–167; BP diastolic 65–81; PULSE 78–91; RESP 18–20; TEMP 36.3–37.1; O2SAT 98–100
[2023-12-19] MEDS: Piperacillin Sodium/Tazobactam 4.5 GM in 0.9 % Sodium Chloride 100 ML IV ×3 (00:14→17:44)
[2023-12-19] MEDS: Omeprazole 20 MG CAPSULE.DR PO (05:42)
[2023-12-19] MEDS: oxyCODONE HCl Immed Release 5 MG TABLET PO ×3 (05:45→17:34)
[2023-12-19 08:14] LABS: Glucose, Whole Blood 135 mg/dL (60-115)
[2023-12-19] MEDS: amLODIPine Besylate 5 MG TABLET PO (09:00)
[2023-12-19] MEDS: Furosemide 40 MG/4 ML VIAL IVPUSH ×2 (09:00→17:31)
[2023-12-19] MEDS: levETIRAcetam 500 MG TABLET PO ×2 (09:00→20:06)
[2023-12-19] MEDS: cloNIDine HCL 0.1 MG TABLET PO ×3 (09:01→20:11)
[2023-12-19] MEDS: 0.9 % Sodium Chloride Flush 3 ML SYRINGE IVFLUSH ×2 (09:02→17:28)
--- NOTE | 2023-12-19 09:47 | HO.PM.IMPN ---
Subjective Subjective Date of Service: 12/19/23 Interval History: Lower extremity edema Physical Exam Vital Signs: Vital Signs: Last Vital Signs Temp 98.0 F 12/19/23 07:28 Pulse 78 12/19/23 07:28 Resp 18 12/19/23 07:28 BP 167/80 H 12/19/23 07:28 Pulse Ox 100 12/19/23 07:28 O2 Del Method Room Air 12/19/23 04:00 FiO2 25 12/15/23 11:30 BMI result Body Mass Index 26.2 Const: Other: Constitutional : Awake, interactive, in mild distress from pain Neck : Normal inspection, Supple Cardiovascular : RRR, no JVP, 2+ lower extremity edema Respiratory : fair bilateral air entry, no crackles, wheezes or rhonchi Gastrointestinal: soft, lax, Normal bowel sounds, Non tender Skin : Warm, Dry Neurological : Alert & oriented x3, No focal deficit Objective Data Active Medications Alprazolam (Alprazolam 0.5 Mg Tablet) 1 mg PO TID PRN PRN Reason: anxiety Last Admin: 12/17/23 12:27 Dose: 1 mg Documented By: GENTRY Amlodipine Besylate (Amlodipine Besylate 5 Mg Tablet) 5 mg PO DAILY [facility]; Protocol Last Admin: 12/19/23 09:00 Dose: 5 mg Documented By: JAYLEN Clonidine HCl (Clonidine Hcl 0.1 Mg Tablet) 0.1 mg PO TID [facility]; Protocol Last Admin: 12/19/23 09:01 Dose: 0.1 mg Documented By: JAYLEN Fluoxetine HCl (Fluoxetine Hcl 20 Mg Capsule) 80 mg PO DAILY@1500 [facility] Last Admin: 12/18/23 16:02 Dose: Not Given Documented By: GENTRY Non-Admin Reason: Patient Refused Furosemide (Furosemide 40 Mg/4 Ml Vial) 40 mg IVPUSH BID@0900,1800 [facility]; Protocol Last Admin: 12/19/23 09:00 Dose: 40 mg Documented By: JAYLEN Glucose (Glucose Gel 15 Gm Gel..Gram.) 15 gm PO Q15M PRN; Protocol PRN Reason: per Hypoglycemia Standing Ord. Hydralazine HCl (Hydralazine Hcl 20 Mg/Ml Vial) 10 mg IVPUSH Q4H PRN; Protocol PRN Reason: SBP > 160 Hydroxyzine HCl (Hydroxyzine Hcl 50 Mg Tablet) 50 mg PO BID [facility] Last Admin: 12/19/23 09:01 Dose: Not Given Documented By: JAYLEN Non-Admin Reason: Patient Refused Dextrose (D10) 250 mls @ 750 mls/hr IV Q30M PRN PRN Reason: BG <70 Piperacillin Sod/Tazobactam (Sod 4.5 gm/ Sodium Chloride) 100 mls @ 200 mls/hr IV Q8H [facility] Last Admin: 12/19/23 09:02 Dose: 100 mls/hr Documented By: JAYLEN Dextrose (D10) 250 mls @ 750 mls/hr IV Q15M PRN; Protocol PRN Reason: per Hypoglycemia Standing Ord. Insulin Human Lispro (Insulin Lispro 100 Unit/Ml 3 Ml Vial) 0 unit SUBCUT QIDACHS [facility]; Protocol Last Admin: 12/19/23 08:50 Dose: Not Given Documented By: JAYLEN Non-Admin Reason: No Insulin Coverage Levetiracetam (Levetiracetam 500 Mg Tablet) 500 mg PO BID [facility] Last Admin: 12/19/23 09:00 Dose: 500 mg Documented By: JAYLEN Omeprazole (Omeprazole 20 Mg Capsule.Dr) 20 mg PO DAILY@0630 [facility] Last Admin: 12/19/23 05:42 Dose: 20 mg Documented By: CALLIE Oxycodone HCl (Oxycodone Hcl Immed Release 5 Mg Tablet) 5 mg PO Q4H PRN PRN Reason: Pain, Severe (Pain Scale 7-10) Last Admin: 12/19/23 05:45 Dose: 5 mg Documented By: CALLIE Sodium Chloride (0.9 % Sodium Chloride Flush 3 Ml Syringe) 3 ml IVFLUSH QSHIFT [facility] Last Admin: 12/19/23 09:02 Dose: 3 ml Documented By: JAYLEN Sumatriptan Succinate (Sumatriptan Succinate 100 Mg Tablet) 100 mg PO DAILY MRX1 PRN PRN Reason: migraine Zolpidem Tartrate (Zolpidem Tartrate 5 Mg Tablet) 10 mg PO BEDTIME [facility] Last Admin: 12/18/23 21:00 Dose: 10 mg Documented By: CALLIE Labs 12/18/23 06:18 12/18/23 06:18 Labs: Laboratory Results - last 24 hr 12/18/23 12/18/23 12/18/23 11:40 16:05 21:16 POC Glucose 138 H 180 H 168 H 12/19/23 07:23 POC Glucose 135 H Microbiology Microbiology Results: Microbiology 12/13/23 16:42 Blood Culture - Final Blood - Venous No growth after 5 days. 12/13/23 16:26 Blood Culture - Final Blood - Venous No growth after 5 days. Assessment and Plan (1) Septic shock: Status: Acute (2) Acute hypoxic respiratory failure: Status: Acute (3) Substance abuse: Status: Acute (4) Acute pancreatitis: Status: Acute (5) Acute hypokalemia: Status: Acute (6) Acute on chronic anemia: Status: Acute Plan 58F H stage IV lung cancer status post XRT chemo, diabetes mellitus COPD, polysubstance abuse, seizure disorder admitted on 12/13/2023 with respiratory arrest on the background of polysubstance abuse with pulmonary aspiration and shock requiring ventilatory and pressor support. Also noted to have pancreatitis. Started on IV fluids and empirically covered with broad-spectrum antibiotics. She was extubated 12/15/23, downgraded to medical floor 12/16/23 Acute hypoxemic respiratory failure 2/2 aspiration pneumonia Weaned down to RA Treated with Zosyn, switch to Augmentin upon discharge Acute metabolic encephalopathy, likely polypharmacy Now back to baseline Urine Tox +ve for methadone, cocaine, fentanyl, benzodiazepine PRN Xanax for anxiety\withdrawals On home dose Clonidine Addiction team appreciated PRN Oxycodone for pain control PT - recomending home with family support Lower extremity edema IV Lasix, monitor Acute hypokalemia resolved dysphagia now on regular solids, thin liquids Hypertension, uncontrolled Continue Home Clonidine 0.1 mg tid Added Amlodipine 5 mg seizure disorder keppra Elevated Lipase CT showing mild form of Pancreatitis no reported abdominal pain and tolerating PO US negative for any obstruction GI recommended no intervention as the abnormalities likely related to septic shock and resuscitation process Acute on chronic anemia 2/2 GIB Positive occult drop in Hb from 12 to 8.5 since admission GI thinks it is related to MW\Gastric bleed on presentation that resolved, no EGD needed now PPI Prophylaxis: SCD due to drop in hemoglobin reason for continued hospitalization: Diuresis Quality Stroke Does the patient have a stroke diagnosis?: No VTE Prior VTE?: No VTE Risk Level:: Medical - moderate - high VTE Device Contraindication: N/A - Device Ordered VTE Drug Contraindication: N/A - Med Ordered
--- NOTE | 2023-12-19 10:45 | MHC.SLORD ---
Speech Language Pathology Order Status: NITROGLYCERIN SUPERVISOR recommended regular texture diet and thin liquids. RN reports patient is tolerating PO meds and meals without difficulty. ST to be d/c at this time as patient is tolerating unmodified diet and does not present with any overt difficulties. Please re-consult if any concerns arise. Notified Dr. Crouch via [place] Message.
--- NOTE | 2023-12-19 10:59 | MHC.CM.PN ---
Per MD rounds no dc today. Patient has LE edema. She will stay for dieresis today. 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 [facility] has been referred if Home services are ordered. Patient may need assistance with transportation home.
[2023-12-19 12:37] LABS: Glucose, Whole Blood 233 mg/dL (60-115)
[2023-12-19] MEDS: Insulin Lispro 100 UNIT/ML 3 ML VIAL SUBCUT ×3 (14:05→20:31)
[2023-12-19 16:16] LABS: Glucose, Whole Blood 215 mg/dL (60-115)
[2023-12-19] MEDS: Zolpidem Tartrate 5 MG TABLET 10 MG PO (20:07)
[2023-12-19 20:23] LABS: Glucose, Whole Blood 181 mg/dL (60-115)
[2023-12-20] VITALS (8 sets, daily range): BP systolic 98–128; BP diastolic 53–81; PULSE 70–88; RESP 18; TEMP 36–37.7; O2SAT 94–100; BMI 26.4
[2023-12-20] MEDS: ALPRAZolam 0.5 MG TABLET 1 MG PO ×2 (00:35→10:50)
[2023-12-20] MEDS: 0.9 % Sodium Chloride Flush 3 ML SYRINGE IVFLUSH ×3 (00:35→16:50)
[2023-12-20] MEDS: Piperacillin Sodium/Tazobactam 4.5 GM in 0.9 % Sodium Chloride 100 ML IV (01:14)
[2023-12-20] MEDS: Omeprazole 20 MG CAPSULE.DR PO (05:30)
[2023-12-20 06:42] LABS: Hematocrit 26.4 % (37.0-47.0); Hemoglobin 8.8 g/dl (12.0-16.0); Mean Corpuscular HGB Conc 33.3 g/dl (31.0-35.0); Mean Corpuscular Hemoglobin 29.8 pg (27.0-33.0); Mean Corpuscular Volume 89.5 fL (80.0-98.0); Mean Platelet Volume 11.8 fL (9.4-12.3); Platelet Count 141 X10*3/uL (160-400); Red Blood Count 2.95 X10*6/uL (4.20-5.50); White Blood Count 6.3 X10*3/uL (4.8-10.8)
[2023-12-20 07:20] LABS: Blood Urea Nitrogen 9 mg/dL (9-16); Creatinine Clr Calc Pharmacy 68.9; Estimated Glomerular Filt Rate > 60; Glucose Fasting 156 mg/dL (60-99); Magnesium 1.8 mg/dL (1.6-2.6)
[2023-12-20 07:56] LABS: Glucose, Whole Blood 153 mg/dL (60-115)
[2023-12-20 08:04] LABS: Anion Gap 15 (12-20); Carbon Dioxide 28 mmol/L (22-29); Chloride 102 mmol/L (96-108); Potassium 2.6 mmol/L (3.3-5.1); Sodium 142 mmol/L (135-145)
--- NOTE | 2023-12-20 09:20 | HO.PM.IMPN ---
Subjective Subjective Date of Service: 12/20/23 Interval History: still with edema, pain Physical Exam Vital Signs: Vital Signs: Last Vital Signs Temp 97.3 F 12/20/23 07:19 Pulse 70 12/20/23 07:19 Resp 18 12/20/23 07:19 BP 114/61 12/20/23 07:19 Pulse Ox 94 12/20/23 07:19 O2 Del Method Room Air 12/20/23 07:19 FiO2 25 12/15/23 11:30 BMI result Body Mass Index 26.4 Const: Other: Constitutional : Awake, interactive, in mild distress from pain Neck : Normal inspection, Supple Cardiovascular : RRR, no JVP, 2+ lower extremity edema Respiratory : fair bilateral air entry, no crackles, wheezes or rhonchi Gastrointestinal: soft, lax, Normal bowel sounds, Non tender Skin : Warm, Dry Neurological : Alert & oriented x3, No focal deficit Objective Data Active Medications Alprazolam (Alprazolam 0.5 Mg Tablet) 1 mg PO TID PRN PRN Reason: anxiety Last Admin: 12/20/23 00:35 Dose: 1 mg Documented By: SIRISHA Amlodipine Besylate (Amlodipine Besylate 5 Mg Tablet) 5 mg PO DAILY [facility]; Protocol Last Admin: 12/19/23 09:00 Dose: 5 mg Documented By: JAYLEN Clonidine HCl (Clonidine Hcl 0.1 Mg Tablet) 0.1 mg PO TID [facility]; Protocol Last Admin: 12/19/23 20:11 Dose: 0.1 mg Documented By: SIRISHA Fluoxetine HCl (Fluoxetine Hcl 20 Mg Capsule) 80 mg PO DAILY@1500 [facility] Last Admin: 12/19/23 14:05 Dose: Not Given Documented By: JAYLEN Non-Admin Reason: Patient Refused Furosemide (Furosemide 40 Mg/4 Ml Vial) 40 mg IVPUSH BID@0900,1800 [facility]; Protocol Last Admin: 12/19/23 17:31 Dose: 40 mg Documented By: BANG Glucose (Glucose Gel 15 Gm Gel..Gram.) 15 gm PO Q15M PRN; Protocol PRN Reason: per Hypoglycemia Standing Ord. Hydralazine HCl (Hydralazine Hcl 20 Mg/Ml Vial) 10 mg IVPUSH Q4H PRN; Protocol PRN Reason: SBP > 160 Hydroxyzine HCl (Hydroxyzine Hcl 50 Mg Tablet) 50 mg PO BID [facility] Last Admin: 12/19/23 20:08 Dose: Not Given Documented By: SIRISHA Non-Admin Reason: Patient Refused Dextrose (D10) 250 mls @ 750 mls/hr IV Q30M PRN PRN Reason: BG <70 Piperacillin Sod/Tazobactam (Sod 4.5 gm/ Sodium Chloride) 100 mls @ 200 mls/hr IV Q8H [facility] Last Infusion: 12/20/23 01:57 Dose: Infused Documented By: SIRISHA Dextrose (D10) 250 mls @ 750 mls/hr IV Q15M PRN; Protocol PRN Reason: per Hypoglycemia Standing Ord. Potassium Chloride (Potassium Chloride/H20) 10 meq in 100 mls @ 100 mls/hr IV Q1H [facility] Stop: 12/20/23 10:14 Insulin Human Lispro (Insulin Lispro 100 Unit/Ml 3 Ml Vial) 0 unit SUBCUT QIDACHS [facility]; Protocol Last Admin: 12/19/23 20:31 Dose: 2 unit Documented By: SIRISHA Levetiracetam (Levetiracetam 500 Mg Tablet) 500 mg PO BID [facility] Last Admin: 12/19/23 20:06 Dose: 500 mg Documented By: SIRISHA Omeprazole (Omeprazole 20 Mg Capsule.Dr) 20 mg PO DAILY@0630 [facility] Last Admin: 12/20/23 05:30 Dose: 20 mg Documented By: SIRISHA Oxycodone HCl (Oxycodone Hcl Immed Release 5 Mg Tablet) 5 mg PO Q4H PRN PRN Reason: Pain, Severe (Pain Scale 7-10) Last Admin: 12/19/23 17:34 Dose: 5 mg Documented By: BANG Sodium Chloride (0.9 % Sodium Chloride Flush 3 Ml Syringe) 3 ml IVFLUSH QSHIFT [facility] Last Admin: 12/20/23 00:35 Dose: 3 ml Documented By: SIRISHA Sumatriptan Succinate (Sumatriptan Succinate 100 Mg Tablet) 100 mg PO DAILY MRX1 PRN PRN Reason: migraine Zolpidem Tartrate (Zolpidem Tartrate 5 Mg Tablet) 10 mg PO BEDTIME [facility] Last Admin: 10/10/24 20:07 Dose: 10 mg Documented By: SIRISHA Labs 12/20/23 05:50 12/20/23 05:50 Labs: Laboratory Results - last 24 hr 12/19/23 12/19/23 12/19/23 12:27 15:41 20:12 MCV MCH MCHC RDW Plt Count MPV Absolute Nucleated RBC Nucleated RBC % (auto) Anion Gap Estim Creat Clear Calc Estimated GFR POC Glucose 233 H 215 H 181 H Fasting Glucose Calcium Magnesium 12/20/23 12/20/23 05:50 07:21 MCV 89.5 MCH 29.8 MCHC 33.3 RDW 13.0 Plt Count 141 L D MPV 11.8 Absolute Nucleated RBC 0.000 Nucleated RBC % (auto) 0.0 Anion Gap 15 Estim Creat Clear Calc 68.9 Estimated GFR > 60 POC Glucose 153 H Fasting Glucose 156 H Calcium 9.0 D Magnesium 1.8 Assessment and Plan (1) Septic shock: Status: Acute (2) Acute hypoxic respiratory failure: Status: Acute (3) Substance abuse: Status: Acute (4) Acute pancreatitis: Status: Acute (5) Acute hypokalemia: Status: Acute (6) Acute on chronic anemia: Status: Acute Plan 58F PMH stage IV lung cancer status post XRT chemo, diabetes mellitus COPD, polysubstance abuse, seizure disorder admitted on 12/13/2023 with respiratory arrest on the background of polysubstance abuse with pulmonary aspiration and shock requiring ventilatory and pressor support. Also noted to have pancreatitis. Started on IV fluids and empirically covered with broad-spectrum antibiotics. She was extubated 12/15/23, downgraded to medical floor 12/16/23 Acute hypoxemic respiratory failure 2/2 aspiration pneumonia Weaned down to RA completed 7 days of zosyn Acute metabolic encephalopathy, likely polypharmacy Now back to baseline Urine Tox +ve for methadone, cocaine, fentanyl, benzodiazepine PRN Xanax for anxiety\withdrawals On home dose Clonidine Addiction team appreciated PRN Oxycodone for pain control PT - recommending home with family support cardiomyopathy with acute systolic chf echo 12/14/23 with reduced EF ?ischemic vs takatzubo continue iv lasix, monitor electrolytes cardio eval Acute hypokalemia, hypomagnesemia replace and monitor dysphagia now on regular solids, thin liquids Hypertension, uncontrolled Continue Home Clonidine 0.1 mg tid change amlodipine to metoprolol seizure disorder keppra Elevated Lipase CT showing mild form of Pancreatitis no reported abdominal pain and tolerating PO US negative for any obstruction GI recommended no intervention as the abnormalities likely related to septic shock and resuscitation process Acute on chronic anemia 2/2 GIB Positive occult GI thinks it is related to MW\Gastric bleed on presentation that resolved, no EGD needed now PPI Prophylaxis: SCD due to drop in hemoglobin reason for continued hospitalization: Diuresis, hypokalemia Quality Stroke Does the patient have a stroke diagnosis?: No VTE Prior VTE?: No VTE Risk Level:: Medical - moderate - high VTE Device Contraindication: N/A - Device Ordered VTE Drug Contraindication: N/A - Med Ordered
[2023-12-20] MEDS: Potassium Chloride/H20 10 MEQ/100 ML PIGGYBACK 100 MEQ IV ×2 (10:18→13:23)
[2023-12-20] MEDS: Insulin Lispro 100 UNIT/ML 3 ML VIAL SUBCUT ×4 (10:18→22:40)
[2023-12-20] MEDS: Furosemide 40 MG/4 ML VIAL IVPUSH ×2 (10:19→18:21)
[2023-12-20] MEDS: oxyCODONE HCl Immed Release 5 MG TABLET PO ×2 (10:28→14:24)
[2023-12-20] MEDS: cloNIDine HCL 0.1 MG TABLET PO ×3 (10:29→20:37)
[2023-12-20] MEDS: levETIRAcetam 500 MG TABLET PO ×2 (10:29→20:37)
[2023-12-20] MEDS: Magnesium Oxide 400 MG TABLET 800 MG PO (10:29)
[2023-12-20] MEDS: Potassium Chloride ER 20 MEQ TAB.ER.PRT 40 MEQ PO (10:30)
--- NOTE | 2023-12-20 11:11 | MHC.CM.PN ---
Per MD rounds no discharge today. K is 2.6 today. DP Home with family support. May need assist with transport.
[2023-12-20 11:42] LABS: Glucose, Whole Blood 167 mg/dL (60-115)
--- NOTE | 2023-12-20 15:16 | PM.CNCAR ---
History of Present Illness History of Present Illness Date of Service: 12/20/23 Requesting physician: Kofi Crouch Consult reason: other (Fluid overload) Chief complaint: Acute Respiratory Failure Narrative: I was consulted to see Desire in cardiology consultation today for leg edema. Patient 58-year-old female was admitted with acute respiratory failure suspected to be due to polysubstance abuse although patient vehemently declines use of drugs prior to hospitalization. However she was admitted to the intensive care unit with acute hypoxemic respiratory failure secondary to aspiration pneumonia and septic shock acute metabolic encephalopathy and acute kidney injury. Patient has prior history of stage IV lung cancer status post radiation therapy and chemotherapy as well as mentioned history of substance abuse, COPD, orthostatic hypotension in the past, multinodular goiter, radiation induced esophagitis, seizure disorder. Patient on the following day of admission had an echocardiogram done which showed moderate to severe LV systolic dysfunction with wall motion abnormality which could represent stress-induced cardiomyopathy. On admission troponins were elevated as well as BNP was elevated. That led to the echocardiogram as mentioned above. She also significantly acidotic with markedly elevated lactic acidosis. Since then now she has been transferred to medical floor for management. She continues to have leg edema. Reviewing the chart she has received about 10 L of positive balance of fluid. She denies any significant shortness of breath. However does have bilateral leg edema. No clear orthopnea PND. No chest pain. She had about few months ago she had rapid heart rate associated chest pain although she had not seek medical attention at that point in time. She has no prior history of known myocardial infarction or coronary artery disease. Review of Systems Constitutional: Constitutional: Reports fatigue and Reports weakness Cardiovascular: Cardiovascular: Denies chest pain, Denies rapid heart rate, Reports leg edema, Denies palpitations and Denies dyspnea Respiratory: Respiratory: Denies dyspnea Gastrointestinal: Gastrointestinal: Reports no additional gastrointestinal complaints Genitourinary: Genitourinary: Reports no additional female genitourinary complaints Musculoskeletal: Musculoskeletal: Reports no additional musculoskeletal complaints Neurologic: Reports weakness Endocrine: Endocrine: Reports fatigue and Denies palpitations [facility] Past Medical History Medical History Pulmonary nodule Diabetes type 2, uncontrolled Colitis Opioid use disorder Arthritis Fibromyalgia History of lung cancer Multinodular goiter Adrenal insufficiency due to cancer therapy Newly diagnosed diabetes Subclinical hyperthyroidism Pancreatitis (~02/2018) Radiation-induced esophagitis Hypothyroidism Depression Opioid abuse Asthma COPD (chronic obstructive pulmonary disease) Aftercare following left shoulder joint replacement surgery Non-small cell carcinoma of left lung, stage 4 Family History Family History Father Pancreatic cancer Mother Diabetes Skin cancer Rheumatoid arthritis Brother Diabetes Sister Diabetes Other History of thyroid disorder Surgical History Surgical History History of esophagogastroduodenoscopy (EGD) (~09/04/19) History of cholecystectomy (~12/02/08) History of endometrial ablation (~07/25/06) History of esophageal dilatation (~02/24/18) Hx of shoulder surgery (~2014) Hx of blepharoplasty (~2018) History of Social History Social History Household Members: Spouse Housing: Unknown / Unable to assess Do you presently have visiting nurse or other home services: Yes Alcohol intake: current Alcohol intake frequency: a few times a week Alcohol type: wine Comment: pt refused HFR precautions Patient Tobacco Use Status: Tobacco use Unknown Tobacco use type: Cigarette Cigarettes Per Day: 4 Years Smoked: 30 Second Hand Smoke Exposure: No Use of substances other than those prescribed or required for medical reasons: Unable to respond Currently Displaying Signs/Symptoms of Drug Intoxication Withdrawal: No Advance Directives: Yes Advance Directives on File: Yes Advance Directives Date on File: 05/12/20 Patient : No Poor oral hygiene: Yes service: No Current occupational status: unemployed and disabled Meds Allergies Allergy/AdvReac Type Severity Reaction Status Date / Time acetaminophen [Tylenol] AdvReac Unknown Abdominal Verified 12/13/23 15:56 Pain ibuprofen AdvReac Unknown Abdominal Verified 12/13/23 15:56 Pain Active Medications: Current Medications Alprazolam (Alprazolam 0.5 Mg Tablet) 1 mg PO TID PRN PRN Reason: anxiety Last Admin: 12/20/23 10:50 Dose: 1 mg Clonidine HCl (Clonidine Hcl 0.1 Mg Tablet) 0.1 mg PO TID [facility]; Protocol Last Admin: 12/20/23 14:24 Dose: 0.1 mg Fluoxetine HCl (Fluoxetine Hcl 20 Mg Capsule) 80 mg PO DAILY@1500 [facility] Last Admin: 12/20/23 14:25 Dose: Not Given Furosemide (Furosemide 40 Mg/4 Ml Vial) 40 mg IVPUSH BID@0900,1800 [facility]; Protocol Last Admin: 12/20/23 10:19 Dose: 40 mg Glucose (Glucose Gel 15 Gm Gel..Gram.) 15 gm PO Q15M PRN; Protocol PRN Reason: per Hypoglycemia Standing Ord. Hydroxyzine HCl (Hydroxyzine Hcl 50 Mg Tablet) 50 mg PO BID [facility] Last Admin: 12/20/23 10:24 Dose: Not Given Dextrose (D10) 250 mls @ 750 mls/hr IV Q15M PRN; Protocol PRN Reason: per Hypoglycemia Standing Ord. Insulin Human Lispro (Insulin Lispro 100 Unit/Ml 3 Ml Vial) 0 unit SUBCUT QIDACHS [facility]; Protocol Last Admin: 12/20/23 12:26 Dose: 2 unit Levetiracetam (Levetiracetam 500 Mg Tablet) 500 mg PO BID [facility] Last Admin: 12/20/23 10:29 Dose: 500 mg Metoprolol Tartrate (Metoprolol Tartrate 25 Mg Tablet) 25 mg PO BID [facility]; Protocol Omeprazole (Omeprazole 20 Mg Capsule.Dr) 20 mg PO DAILY@0630 [facility] Last Admin: 12/20/23 05:30 Dose: 20 mg Oxycodone HCl (Oxycodone Hcl Immed Release 5 Mg Tablet) 5 mg PO Q4H PRN PRN Reason: Pain, Severe (Pain Scale 7-10) Last Admin: 12/20/23 14:24 Dose: 5 mg Sodium Chloride (0.9 % Sodium Chloride Flush 3 Ml Syringe) 3 ml IVFLUSH QSHIFT [facility] Last Admin: 12/20/23 10:19 Dose: 3 ml Sumatriptan Succinate (Sumatriptan Succinate 100 Mg Tablet) 100 mg PO DAILY MRX1 PRN PRN Reason: migraine Zolpidem Tartrate (Zolpidem Tartrate 5 Mg Tablet) 10 mg PO BEDTIME [facility] Last Admin: 12/19/23 20:07 Dose: 10 mg Home Medications ?Medication ?Instructions ?Recorded ?Confirmed ?Last Taken ?Type clonidine HCl 0.1 mg tablet 0.1 mg PO TID 12/17/19 12/13/23 11/21/23 08:00 History zolpidem 10 mg tablet 10 mg PO BEDTIME Sleep 12/29/20 10/04/24 09/12/24 08:00 History biotin 5,000 mcg sublingual tablet 5,000 mcg sublingual DAILY 02/10/21 12/13/23 02/08/21 History cholecalciferol (vitamin D3) 25 25 mcg PO DAILY 02/10/21 12/13/23 11/20/23 History mcg (1,000 unit) tablet (Vitamin D3) sumatriptan succinate 100 mg tablet 100 mg PO DAILY MRX1 PRN migraine 11/01/21 12/13/23 Unknown History fluoxetine 40 mg capsule 80 mg PO DAILY@1500 depressive 11/22/23 12/13/23 11/20/23 History disorder hydroxyzine HCl 50 mg tablet 50 mg PO BID anxiety 11/22/23 12/13/23 11/20/23 History omeprazole 20 mg capsule,delayed 20 mg PO DAILY@0630 11/22/23 12/13/23 Unknown History release alprazolam 1 mg tablet 1 mg PO TID PRN anxiety 12/13/23 12/13/23 Unknown History cephalexin 500 mg capsule 500 mg PO QID 12/13/23 12/13/23 Unknown History doxycycline hyclate 100 mg tablet 100 mg PO BID 12/13/23 12/13/23 Unknown History Physical Exam Vital Signs: Vital Signs: Last Vital Signs Temp 97.7 F 12/20/23 10:59 Pulse 85 12/20/23 10:59 Resp 18 12/20/23 10:59 BP 128/81 12/20/23 10:59 Pulse Ox 97 12/20/23 10:59 O2 Del Method Room Air 12/20/23 10:59 FiO2 25 12/15/23 11:30 BMI result Body Mass Index 26.4 Const: General: cooperative, comfortable, no acute distress, alert and awake Nutritional Appearance: overweight Orientation/consciousness: patient oriented x3 HEENT: Head: Yes normocephalic and Yes atraumatic Neck: Neck: Yes trachea midline, Yes supple and Yes no JVD Resp: Effort & Inspection: normal respiratory effort Auscultation: clear to auscultation bilaterally and diminished lung sounds Cardio: Jugular venous distension: no JVD Rate: regular rate Rhythm: regular rhythm Heart sounds: S1 normal heart sound present, S2 normal heart sound present, no click, no gallops, no murmurs and no rubs GI: Auscultation: normal bowel sounds Skin: General skin exam: no rashes or lesions noted Neuro: General: patient oriented x3 and no focal motor deficits Extrem: General: No clubbing, No cyanosis and Yes edema Objective Labs and Meds 12/20/23 05:50 12/20/23 05:50 Lab results: Laboratory Results - last 24 hr 12/19/23 12/19/23 12/20/23 15:41 20:12 05:50 WBC 6.3 RBC 2.95 L Hgb 8.8 L Hct 26.4 L MCV 89.5 MCH 29.8 MCHC 33.3 RDW 13.0 Plt Count 141 L D MPV 11.8 Absolute Nucleated RBC 0.000 Nucleated RBC % (auto) 0.0 Sodium 142 Potassium 2.6 L* D Chloride 102 Carbon Dioxide 28 Anion Gap 15 BUN 9 Creatinine 0.79 Estim Creat Clear Calc 68.9 Estimated GFR > 60 POC Glucose 215 H 181 H Fasting Glucose 156 H Calcium 9.0 D Magnesium 1.8 12/20/23 12/20/23 07:21 11:00 WBC RBC Hgb Hct MCV MCH MCHC RDW Plt Count MPV Absolute Nucleated RBC Nucleated RBC % (auto) Sodium Potassium Chloride Carbon Dioxide Anion Gap BUN Creatinine Estim Creat Clear Calc Estimated GFR POC Glucose 153 H 167 H Fasting Glucose Calcium Magnesium Assessment and Plan (1) Fluid overload: Status: Acute Patient with fluid overload without any overt signs of congestive heart failure. Most likely related to fluid resuscitation and over the last 7 days has 10 L positive balance. Gradually diurese. Strict intake and output chart needs to be pursued. Follow-up BMP and BNP. Follow electrolytes and replace as needed. (2) Cardiomyopathy: Status: Acute Cardiomyopathy process with wall motion abnormality suggestive of possible stress-induced cardiomyopathy. Ischemia can not be ruled out given her multiple risk factors. Will need to be evaluated outpatient. Stress-induced cardiomyopathy usually improves with medical therapy and time. This was discussed with her. Most likely related to acute medical illness. Will require ischemic workup as an outpatient. I would suggest to add angiotensin receptor blockers for neurohormonal modulation. Continue metoprolol therapy. I would also prescribed aspirin statin therapy. Continue aggressive diabetes control. Will follow with you Procedures Date of Service Date of Service: 12/20/23
[2023-12-20 15:57] LABS: Glucose, Whole Blood 383 mg/dL (60-115)
[2023-12-20] MEDS: Zolpidem Tartrate 5 MG TABLET 10 MG PO (20:36)
[2023-12-20] MEDS: hydrOXYzine HCL 50 MG TABLET PO (20:37)
[2023-12-20] MEDS: Metoprolol Tartrate 25 MG TABLET PO (20:37)
[2023-12-20 21:39] LABS: Glucose, Whole Blood 174 mg/dL (60-115)
[2023-12-21] MEDS: 0.9 % Sodium Chloride Flush 3 ML SYRINGE IVFLUSH ×3 (02:29→23:02)
[2023-12-21] MEDS: oxyCODONE HCl Immed Release 5 MG TABLET PO ×4 (02:34→20:43)
[2023-12-21 03:29] VITALS: BP 99/55; PULSE 84; RESP 18; TEMP 37; O2SAT 97
[2023-12-21] MEDS: Omeprazole 20 MG CAPSULE.DR PO (05:22)
[2023-12-21 06:00] VITALS: BMI 25.8
[2023-12-21 07:43] LABS: Glucose, Whole Blood 340 mg/dL (60-115)
[2023-12-21 07:53] VITALS: BP 106/64; PULSE 79; RESP 19; TEMP 36.3; O2SAT 95
[2023-12-21] MEDS: Insulin Lispro 100 UNIT/ML 3 ML VIAL SUBCUT ×3 (08:30→21:05)
[2023-12-21] MEDS: hydrOXYzine HCL 50 MG TABLET PO ×2 (08:55→20:40)
[2023-12-21] MEDS: Metoprolol Tartrate 25 MG TABLET PO ×2 (08:59→20:39)
[2023-12-21] MEDS: levETIRAcetam 500 MG TABLET PO ×2 (08:59→20:40)
[2023-12-21] MEDS: cloNIDine HCL 0.1 MG TABLET PO ×3 (08:59→20:40)
[2023-12-21 09:00] LABS: Hematocrit 25.7 % (37.0-47.0); Hemoglobin 8.6 g/dl (12.0-16.0); Mean Corpuscular HGB Conc 33.5 g/dl (31.0-35.0); Mean Corpuscular Hemoglobin 30.5 pg (27.0-33.0); Mean Corpuscular Volume 91.1 fL (80.0-98.0); Mean Platelet Volume 12.2 fL (9.4-12.3); Platelet Count 153 X10*3/uL (160-400); Red Blood Count 2.82 X10*6/uL (4.20-5.50); Red Cell Distribution Width 13.5 % (11.0-16.0); White Blood Count 6.2 X10*3/uL (4.8-10.8)
[2023-12-21 09:36] LABS: Anion Gap 12 (12-20); Blood Urea Nitrogen 17 mg/dL (9-16); Calcium 8.5 mg/dL (8.4-10.2); Carbon Dioxide 30 mmol/L (22-29); Chloride 99 mmol/L (96-108); Creatinine Clr Calc Pharmacy 64.9; Estimated Glomerular Filt Rate > 60; Glucose Fasting 373 mg/dL (60-99); Magnesium 1.7 mg/dL (1.6-2.6); Potassium 3.1 mmol/L (3.3-5.1); Sodium 138 mmol/L (135-145)
--- NOTE | 2023-12-21 10:18 | P.PNIM_ITS ---
Subjective Subjective Date of Service: 12/21/23 Interval History: seen and examined this AM complaining of abdominal pain and nausea Review of Systems Negative except HPI/interval history. Physical Exam 2 Vital Signs: Vital Signs: Last Vital Signs Temp 97.3 F 12/21/23 07:53 Pulse 79 12/21/23 07:53 Resp 19 12/21/23 07:53 BP 106/64 12/21/23 07:53 Pulse Ox 95 12/21/23 07:53 O2 Del Method Room Air 12/21/23 07:53 FiO2 25 12/15/23 11:30 BMI result Body Mass Index 25.8 Const: Other: General - no acute distress, appears comfortable Cardiovascular - regular rate and rhythm, S1-S2 Lungs - normal respiratory effort, clear to auscultation bilaterally, no wheezing Abdomen - soft, diffuse tenderness with voluntary guarding Extremities - minimal pedal edema Neuro - awake and alert, no focal deficits Objective Data Active Medications Alprazolam (Alprazolam 0.5 Mg Tablet) 1 mg PO TID PRN PRN Reason: anxiety Last Admin: 12/20/23 10:50 Dose: 1 mg Documented By: JAYLEN Clonidine HCl (Clonidine Hcl 0.1 Mg Tablet) 0.1 mg PO TID [facility]; Protocol Last Admin: 12/21/23 08:59 Dose: 0.1 mg Documented By: BRENDEN Fluoxetine HCl (Fluoxetine Hcl 20 Mg Capsule) 80 mg PO DAILY@1500 SHABANA Last Admin: 12/20/23 14:25 Dose: Not Given Documented By: JAYLEN Non-Admin Reason: Patient Refused Glucose (Glucose Gel 15 Gm Gel..Gram.) 15 gm PO Q15M PRN; Protocol PRN Reason: per Hypoglycemia Standing Ord. Hydroxyzine HCl (Hydroxyzine Hcl 50 Mg Tablet) 50 mg PO BID [facility] Last Admin: 12/21/23 08:55 Dose: 50 mg Documented By: BRENDEN Dextrose (D10) 250 mls @ 750 mls/hr IV Q15M PRN; Protocol PRN Reason: per Hypoglycemia Standing Ord. Insulin Human Lispro (Insulin Lispro 100 Unit/Ml 3 Ml Vial) 0 unit SUBCUT QIDACHS [facility]; Protocol Last Admin: 12/21/23 08:30 Dose: 8 unit Documented By: BRENDEN Levetiracetam (Levetiracetam 500 Mg Tablet) 500 mg PO BID [facility] Last Admin: 12/21/23 08:59 Dose: 500 mg Documented By: BRENDEN Metoprolol Tartrate (Metoprolol Tartrate 25 Mg Tablet) 25 mg PO BID [facility]; Protocol Last Admin: 12/21/23 08:59 Dose: 25 mg Documented By: BRENDEN Omeprazole (Omeprazole 20 Mg Capsule.Dr) 20 mg PO DAILY@0630 [facility] Last Admin: 12/21/23 05:22 Dose: 20 mg Documented By: CHERYL Oxycodone HCl (Oxycodone Hcl Immed Release 5 Mg Tablet) 5 mg PO Q4H PRN PRN Reason: Pain, Severe (Pain Scale 7-10) Last Admin: 12/21/23 08:55 Dose: 5 mg Documented By: BRENDEN Potassium Chloride (Potassium Chloride Er 20 Meq Tab.Er.Prt) 40 meq PO ONCE ONE Stop: 12/21/23 10:17 Sodium Chloride (0.9 % Sodium Chloride Flush 3 Ml Syringe) 3 ml IVFLUSH QSHIFT [facility] Last Admin: 12/21/23 09:05 Dose: 3 ml Documented By: BRENDEN Sumatriptan Succinate (Sumatriptan Succinate 100 Mg Tablet) 100 mg PO DAILY MRX1 PRN PRN Reason: migraine Zolpidem Tartrate (Zolpidem Tartrate 5 Mg Tablet) 10 mg PO BEDTIME [facility] Last Admin: 12/20/23 20:36 Dose: 10 mg Documented By: MARGARETH Labs 12/21/23 07:29 12/21/23 07:29 Labs: Laboratory Results - last 24 hr 12/20/23 12/20/23 12/20/23 11:00 15:50 20:57 MCV MCH MCHC RDW Plt Count MPV Absolute Nucleated RBC Nucleated RBC % (auto) Anion Gap Estim Creat Clear Calc Estimated GFR POC Glucose 167 H 383 H* 174 H Fasting Glucose Calcium Magnesium 12/21/23 12/21/23 07:29 07:33 MCV 91.1 MCH 30.5 MCHC 33.5 RDW 13.5 Plt Count 153 L MPV 12.2 Absolute Nucleated RBC 0.000 Nucleated RBC % (auto) 0.0 Anion Gap 12 Estim Creat Clear Calc 64.9 Estimated GFR > 60 POC Glucose 340 H Fasting Glucose 373 H* Calcium 8.5 Magnesium 1.7 Assessment and Plan (1) Septic shock: Status: Acute (2) Acute hypoxic respiratory failure: Status: Acute (3) Substance abuse: Status: Acute (4) Acute pancreatitis: Status: Acute (5) Acute hypokalemia: Status: Acute (6) Acute on chronic anemia: Status: Acute Plan 58F PMH stage IV lung cancer status post XRT chemo, diabetes mellitus COPD, polysubstance abuse, seizure disorder admitted on 12/13/2023 with respiratory arrest on the background of polysubstance abuse with pulmonary aspiration and shock requiring ventilatory and pressor support. Also noted to have pancreatitis. Started on IV fluids and empirically covered with broad-spectrum antibiotics. She was extubated 12/15/23, downgraded to medical floor 12/16/23 Acute hypoxemic respiratory failure and septic 2/2 aspiration pneumonia Weaned down to RA completed 7 days of zosyn s/p ICU stay for vasopressors and ventilatory support Acute metabolic encephalopathy, likely polypharmacy Now back to baseline Urine Tox +ve for methadone, cocaine, fentanyl, benzodiazepine PRN Xanax for anxiety\withdrawals On home dose Clonidine Addiction team appreciated PRN Oxycodone for pain control PT - recommending home with family support suspected stress induced cardiomyopathy with acute systolic chf echo 12/14/23 with reduced EF ?ischemic vs takatzubo overall fluid status seems improved -- now with rising BUN/Bicarb + hypoK -- will hold iV lasix and d/w cardiology cardiology f/u today Acute hypokalemia, hypomagnesemia replace and monitor dysphagia now on regular solids, thin liquids Hypertension, uncontrolled Continue Home Clonidine 0.1 mg tid change amlodipine to metoprolol seizure disorder keppra Elevated Lipase CT showing mild form of Pancreatitis no reported abdominal pain and tolerating PO US negative for any obstruction GI recommended no intervention as the abnormalities likely related to septic shock and resuscitation process Acute on chronic anemia 2/2 GIB Positive occult GI thinks it is related to MW\Gastric bleed on presentation that resolved, no EGD needed now PPI Prophylaxis: SCD due to drop in hemoglobin reason for continued hospitalization: hypoK, cardiology f/u, possible d/c in the next 24-48 hours Quality Stroke Does the patient have a stroke diagnosis?: No VTE Prior VTE?: No VTE Risk Level:: Medical - moderate - high VTE Device Contraindication: N/A - Device Ordered VTE Drug Contraindication: N/A - Med Ordered
[2023-12-21 11:36] LABS: Glucose, Whole Blood 86 mg/dL (60-115)
--- NOTE | 2023-12-21 11:38 | PM.PNCARD ---
Subjective Subjective Date of Service: 12/21/23 Principal diagnosis: Fluid overload Interval history: Patient still complaining of unilateral leg edema mostly in the right leg. No shortness of breath. Also complains of pain in his belly related to pancreatitis. No orthopnea or PND. Review of Systems Constitutional: Reports weakness Eyes: Reports no additional eye complaints Cardiovascular: Reports no additional cardiovascular complaints Respiratory: Reports no additional respiratory complaints Reports system reviewed and no additional complaints, except as documented and Reports weakness Physical Exam Vital Signs: Last Vital Signs Temp 97.3 F 12/21/23 07:53 Pulse 79 12/21/23 07:53 Resp 19 12/21/23 07:53 BP 106/64 12/21/23 07:53 Pulse Ox 95 12/21/23 07:53 O2 Del Method Room Air 12/21/23 07:53 FiO2 25 12/15/23 11:30 BMI result Body Mass Index 25.8 Const General: cooperative, comfortable, alert and awake Nutritional Appearance: average body habitus Orientation/consciousness: patient oriented x3 Neck Neck: Yes trachea midline, Yes supple and Yes no JVD Resp Effort & Inspection: normal respiratory effort Auscultation: clear to auscultation bilaterally Cardio Jugular venous distension: no JVD Palpation: normal PMI Rate: regular rate Rhythm: regular rhythm Heart sounds: S1 normal heart sound present, S2 normal heart sound present, no click, no gallops, no murmurs and no rubs Skin General skin exam: no rashes or lesions noted Neuro General: patient oriented x3 and no focal motor deficits Extrem General: Yes edema (Right lower swelling) Objective Labs and Meds 12/21/23 07:29 12/21/23 07:29 Lab results: Laboratory Results - last 24 hr 12/20/23 12/20/23 12/20/23 11:00 15:50 20:57 WBC RBC Hgb Hct MCV MCH MCHC RDW Plt Count MPV Absolute Nucleated RBC Nucleated RBC % (auto) Sodium Potassium Chloride Carbon Dioxide Anion Gap BUN Creatinine Estim Creat Clear Calc Estimated GFR POC Glucose 167 H 383 H* 174 H Fasting Glucose Calcium Magnesium 12/21/23 12/21/23 12/21/23 07:29 07:33 11:32 WBC 6.2 RBC 2.82 L Hgb 8.6 L Hct 25.7 L MCV 91.1 MCH 30.5 MCHC 33.5 RDW 13.5 Plt Count 153 L MPV 12.2 Absolute Nucleated RBC 0.000 Nucleated RBC % (auto) 0.0 Sodium 138 Potassium 3.1 L Chloride 99 Carbon Dioxide 30 H Anion Gap 12 BUN 17 H Creatinine 0.83 Estim Creat Clear Calc 64.9 Estimated GFR > 60 POC Glucose 340 H 86 Fasting Glucose 373 H* Calcium 8.5 Magnesium 1.7 Progress Note: A&P Assessment and plan (1) Fluid overload: Status: Acute Assessment and Plan: Fluid overload related to significant fluid resuscitation this lady. Clinically does appear to be in heart failure. Can switch to p.o. Lasix for few days. Continue adequate hydration. I do not think she has significant congestive heart failure at this point in time. (2) Cardiomyopathy: Status: Acute Assessment and Plan: Cardiomyopathy process which appears to be most likely stress-induced cardiomyopathy from acute presentation. Follow-up limited echocardiogram in 1 weeks time will set up. Continue metoprolol. I would also prescribe her aspirin statins. Will prescribe a low-dose valsartan 40 mg daily. Will set up for outpatient stress testing. Will sign of the case. Time Spent With Patient Time: Total time managing care of this patient today ____ minutes. Progress Note: Quality Stroke Does the patient have a stroke diagnosis?: No Procedures Date of Service Date of Service: 12/21/23
[2023-12-21] MEDS: Furosemide 40 MG TABLET PO (11:42)
[2023-12-21] MEDS: Potassium Chloride ER 20 MEQ TAB.ER.PRT 40 MEQ PO (11:42)
[2023-12-21 11:47] VITALS: BP 110/62; PULSE 71; RESP 17; TEMP 36.3; O2SAT 97
[2023-12-21 16:00] VITALS: BP 100/65; PULSE 76; RESP 16; TEMP 36.4; O2SAT 98
[2023-12-21 16:34] LABS: Glucose, Whole Blood 196 mg/dL (60-115)
[2023-12-21 19:50] VITALS: BP 134/84; PULSE 81; RESP 20; TEMP 36.6; O2SAT 99
[2023-12-21] MEDS: Nicotine Polacrilex 2 MG GUM BUCCAL (20:40)
[2023-12-21 21:01] LABS: Glucose, Whole Blood 166 mg/dL (60-115)
[2023-12-21] MEDS: Zolpidem Tartrate 5 MG TABLET 10 MG PO (22:49)
[2023-12-22] VITALS: BP 112/76; PULSE 68; RESP 20; TEMP 36.4; O2SAT 96
[2023-12-22 04:00] VITALS: BP 112/78; PULSE 68; RESP 20; TEMP 36.1; O2SAT 96
[2023-12-22] MEDS: oxyCODONE HCl Immed Release 5 MG TABLET PO ×2 (04:29→08:35)
[2023-12-22 05:38] VITALS: BMI 26.5
[2023-12-22] MEDS: Omeprazole 20 MG CAPSULE.DR PO (06:11)
[2023-12-22 07:46] LABS: Glucose, Whole Blood 229 mg/dL (60-115)
[2023-12-22 08:00] VITALS: BP 123/59; PULSE 80; RESP 20; TEMP 36.7; O2SAT 96
[2023-12-22] MEDS: Furosemide 40 MG TABLET PO (08:35)
[2023-12-22] MEDS: cloNIDine HCL 0.1 MG TABLET PO (08:35)
[2023-12-22] MEDS: hydrOXYzine HCL 50 MG TABLET PO (08:35)
[2023-12-22] MEDS: Metoprolol Tartrate 25 MG TABLET PO (08:35)
[2023-12-22] MEDS: levETIRAcetam 500 MG TABLET PO (08:35)
[2023-12-22] MEDS: 0.9 % Sodium Chloride Flush 3 ML SYRINGE IVFLUSH (08:36)
[2023-12-22] MEDS: Insulin Lispro 100 UNIT/ML 3 ML VIAL SUBCUT (08:36)
[2023-12-22] MEDS: HYDROmorphone HCl 0.5 MG/0.5 ML SYRINGE IVPUSH (08:42)
--- NOTE | 2023-12-22 09:25 | PM.DS ---
DS: Providers Provider Date of Service: 12/22/23 Date of admission: 12/13/23 19:34 Primary care physician: Sharifa Gamble MD Consults: 12/16/23 11:56 Consult to Gastroenterology Routine Consulting Provider: Gabe Anne Reason for consultation: anemia, stool for occult blood positive 12/17/23 07:51 Addiction Medicine Routine Consulting Provider: Addiction Covering Reason for consultation: Polysubstance abuse w overdose 12/20/23 09:22 Consult to Cardiology Routine Consulting Provider: [facility] Reason for consultation: ?new cardiomyopathy from echo 12/14/23 DS: Diagnosis Discharge Diagnosis (1) Fluid overload: Status: Resolved (2) Cardiomyopathy: Status: Inactive DS: Summary Hospital Course Hospital Course: History and physical as per admitting provider. The patient is a 58-year-old female with a past medical history of lung cancer (status post chemotherapy), radiation induced esophagitis, diabetes mellitus, COPD,? asthma,? polysubstance abuse,? seizure disorder, hypothyroidism and depression? who presented to the emergency department via? EMS as a code.? According to EMS,? family called emergency services due to patient being unresponsive, when arrived patient?s home patient? unresponsive, covered? in ground coffee emesis, was intubated with IGel,? EN route to the hospital? patient became pulseless and CPR was initiated.?On arrival to the emergency department,? ROSC was achieved,? patient was awake IGEL was removed, but she was still unable to protect airway,? she was re-intubated with the ET tube.?Patient? was tachycardic to 110, hypertensive to 171/104, and temperature was 92.3 degrees. Laboratory data was significant for WBC of 25.7, anion gap 21, BUN 8, creatinine 1.74, serum glucose 779,? lactic acid 10.1, CK 2540, lipase 353, Venous gas:? 7.//38/26 IMAGING:? Head CT: No acute intracranial pathology. Small right frontal superficial scalp hematoma. Cervical spine CT:? no acute findings CT abdomen:? Acute pancreatitis ED COURSE:? Patient received a total of 3 L bolus, insulin 14 units IV push, Zosyn 3.375,? and started on an insulin drip. Patient also place on Rayne Hugger Acute hypoxemic respiratory failure and septic shock 2/2 aspiration pneumonia initially in the ICU ventilated and receiving vasopressors. It was thought that this may have related to an overdose secondary to polypharmacy as her urine toxicology was positive for methadone, cocaine, fentanyl and benzodiazepines. She was weaned down to room air and transferred back to [facility] floor. She completed 7 days of IV Zosyn and her mental status has significantly cleared and she is now back to baseline. She developed takotsubo cardiomyopathy with echocardiogram on 12/14/2023 showing EF of 30-35%. Plan is for patient to follow up outpatient with Cardiology for stress test, this will be set up by [facility]. Likely due to all of the IV fluid she had received, due to hypotension, she did develop fluid overload and was treated with IV Lasix. This likely affected her electrolytes and she was treated for hypokalemia and hypomagnesemia which both resolved. She was also noted to have mild dysphagia but this did resolve and she was back on regular solid diet. History of hypertension. Blood pressures are now stable and back to baseline may continue clonidine 0.1 mg t.i.d. Hypertension, uncontrolled. May continue clonidine and metoprolol seizure disorder. No seizures during hospitalization. continue Keppra Elevated Lipase. CT showed mild pancreatitis, ultrasound negative for obstruction. Seen evaluated by Gastroenterology with no recommendation for intervention. Acute on chronic anemia 2/2 GIB GI thinks it is related to MW\Gastric bleed on presentation that resolved. Continue PPI Time Attestation Discharge Coordination Time (in mins): 38 Quality: Safe Use of Opioids Does Pt have an Active Cancer Diagnosis on the Problem List?: No Quality: Stroke Does the patient have a stroke diagnosis?: No Physical Exam Vital Signs: Vital Signs: Last Vital Signs Temp 98.1 F 12/22/23 08:00 Pulse 80 12/22/23 08:00 Resp 20 12/22/23 08:00 BP 123/59 L 12/22/23 08:00 Pulse Ox 96 12/22/23 08:00 O2 Del Method Room Air 12/22/23 08:00 FiO2 25 12/15/23 11:30 BMI result Body Mass Index 26.5 Appearing in no acute distress head is normocephalic atraumatic eyes pupils are PERRLA sclera is anicteric mouth throat mucous membranes are intact and moist neck is supple no lymphadenopathy, no JVD noted lung sounds are clear to auscultation heart regular rate rhythm, clear S1, S2 positive bowel sounds, abdomen is soft, nontender neuro patient is alert x3, no focal deficits DS: Data Data Completed and Pending Completed studies during hospitalization [Text1]: Procedures Excision of Stomach, Pylorus, Via Natural or Artificial Opening Endoscopic, Diagnostic (07/21/20) Labs on day of discharge: Laboratory Results - last 24 hr 12/21/23 12/21/23 12/21/23 07:29 11:32 16:22 Hold Purple Top Sodium 138 Potassium 3.1 L Chloride 99 Carbon Dioxide 30 H Anion Gap 12 BUN 17 H Creatinine 0.83 Estim Creat Clear Calc 64.9 Estimated GFR > 60 POC Glucose 86 196 H Fasting Glucose 373 H* Calcium 8.5 Magnesium 1.7 12/21/23 12/22/23 12/22/23 20:52 07:31 08:05 Hold Purple Top SEE NOTE Sodium Potassium Chloride Carbon Dioxide Anion Gap BUN Creatinine Estim Creat Clear Calc Estimated GFR POC Glucose 166 H 229 H Fasting Glucose Calcium Magnesium Discharge Plan Discharge Anticipated Discharge Date/Time: 12/22/23 07:30 Patient Disposition: Home, Self-Care Discharge Diagnosis: Acute hypoxemic respiratory failure Aspiration pneumonia Urine toxicology positive for methadone, cocaine, fentanyl and benzodiazepine Acute metabolic encephalopathy Takotsubo cardiomyopathy Hypokalemia, hypomagnesemia Dysphagia Pancreatitis Referrals: Sharifa Gamble MD [Primary Care Provider] - 1 Week James Faith MD [Physician] - 1 Week Discharge Medications: New furosemide 40 mg Tablet 40 mg PO DAILY Qty: 30 0RF Protocol: Hold for SBP< HOLD for SBP < : 90 oxycodone 5 mg Tablet 5 mg PO Q4H PRN (Reason: Pain, Severe (Pain Scale 7-10)) Qty: 12 0RF Rx Instructions: Partial Fill upon patient request. metoprolol tartrate 25 mg Tablet 25 mg PO BID Qty: 60 0RF Protocol: Hold for SBP/HR < HOLD for SBP < : 90 HOLD for HR < : 60 Continued (DME) FreeStyle Lite Strips Strip See Rx Instructions .MEDSUPPLY Qty: 150 6RF Rx Instructions: 4 times a day ondansetron 4 mg tablet,disintegrating 4 mg PO Q8H PRN (Reason: nausea and vomiting) Qty: 30 0RF clonidine HCl 0.1 mg tablet 0.1 mg PO TID levetiracetam 500 mg tablet 500 mg PO BID Qty: 180 1RF cholecalciferol (vitamin D3) [Vitamin D3] 25 mcg (1,000 unit) Tablet 25 mcg PO DAILY biotin 5,000 mcg Tablet, Sublingual 5,000 mcg SUBLINGUAL DAILY fluoxetine 40 mg capsule 80 mg PO DAILY@1500 hydroxyzine HCl 50 mg tablet 50 mg PO BID omeprazole 20 mg capsule,delayed release(DR/EC) 20 mg PO DAILY@0630 metformin 500 mg tablet 500 mg PO DAILY Qty: 30 0RF alprazolam 1 mg tablet 1 mg PO TID PRN (Reason: anxiety) zolpidem 10 mg tablet 10 mg PO BEDTIME sumatriptan succinate 100 mg tablet 100 mg PO DAILY MRX1 PRN (Reason: migraine) Discontinued metronidazole 500 mg tablet 500 mg PO Q8H Qty: 9 0RF cephalexin 500 mg capsule 500 mg PO QID Rx Instructions: End 12/18/23 doxycycline hyclate 100 mg tablet 100 mg PO BID Rx Instructions: End date 12/18/23 Discharge Orders: Discharge Order (Routine); Ordered 12/22/23 Ordered By: Tomasa Ta Diet: Advance to usual diet Activity on Discharge: As tolerated Stand Alone Forms: Patient Portal Discharge page Print Language: Luxembourgish Care Plan Goals: Follow up with Cardiology for outpatient stress test Health Concerns: Acute hypoxemic respiratory failure Aspiration pneumonia Urine toxicology positive for methadone, cocaine, fentanyl and benzodiazepine Acute metabolic encephalopathy Takotsubo cardiomyopathy Hypokalemia, hypomagnesemia Dysphagia Pancreatitis Plan of Treatment: Follow-up with primary care provider as needed Take all medications as prescribed Assessment: See discharge summary Discharge Date/Time: 12/22/23 10:57
[2023-12-22 09:35] LABS: Anion Gap 14 (12-20); Blood Urea Nitrogen 14 mg/dL (9-16); Calcium 9.4 mg/dL (8.4-10.2); Carbon Dioxide 30 mmol/L (22-29); Chloride 99 mmol/L (96-108); Creatinine Clr Calc Pharmacy 71.7; Estimated Glomerular Filt Rate > 60; Glucose Random 217 mg/dL (60-115); Potassium 3.2 mmol/L (3.3-5.1); Sodium 140 mmol/L (135-145)
--- NOTE | 2023-12-22 11:02 | MHC.CM.PN ---
Second IMM given 12/21. Pt is medically cleared for discharge home self-care, pt has arranged her own transportation home.
== END 2023-12-22 10:57 | disposition home or self-care (01) | DRG 917 ==
LOC: HO.ED 19:43 → HO.EDOVER 19:47 → HO.ICU 19:47 → HO.IMC 12-16 10:19
PROVIDERS: Family Medicine; Internal Medicine; Internal Medicine Pulmonary Disease; Student in an Organized Health Care Education/Training Program; Admitting Provider Registered Nurse Community Health; Emergency Provider Internal Medicine; PCP Internal Medicine; Visit Provider Nurse Practitioner Acute Care
DX: T40.3X1A Poisoning by methadone, accidental (unintentional), initial encounter (principal); A41.9 Sepsis, unspecified organism; J69.0 Pneumonitis due to inhalation of food and vomit; R65.21 Severe sepsis with septic shock; J96.01 Acute respiratory failure with hypoxia; G92.8 Other toxic encephalopathy; K22.6 Gastro-esophageal laceration-hemorrhage syndrome; N17.9 Acute kidney failure, unspecified; F10.139 Alcohol abuse with withdrawal, unspecified; I51.81 Takotsubo syndrome; D62 Acute posthemorrhagic anemia; F19.929 Other psychoactive substance use, unspecified with intoxication, unspecified; T40.5X1A Poisoning by cocaine, accidental (unintentional), initial encounter; T40.411A Poisoning by fentanyl or fentanyl analogs, accidental (unintentional), initial encounter; D64.9 Anemia, unspecified; R13.10 Dysphagia, unspecified; T42.4X1A Poisoning by benzodiazepines, accidental (unintentional), initial encounter; I10 Essential (primary) hypertension; E87.6 Hypokalemia; E87.70 Fluid overload, unspecified; E83.42 Hypomagnesemia; G40.909 Epilepsy, unspecified, not intractable, without status epilepticus; Z20.822 Contact with and (suspected) exposure to COVID-19; Z85.118 Personal history of other malignant neoplasm of bronchus and lung; Z79.84 Long term (current) use of oral hypoglycemic drugs; Z79.899 Other long term (current) drug therapy
CPT/HCPCS: 0241U; 36415; 70450; 71045; 72125; 73551; 74177; 76700; 80048; 80053; 80076; 80307; 81001; 82010; 82040; 82140; 82272; 82465; 82550; 82803; 82947; 83605; 83690; 83718; 83721; 83735; 83880; 84100; 84443; 84478; 84484; 85007; 85025; 85027; 85610; 85730; 86850; 86900; 86901; 87040; 92610; 93005; 93306; 93926; 94002; 94003; 97116; 97161; 97530; 99285; C1758; J0613; J1171; J1644; J1885; J1940; J1953; J2250; J2405; J2470; J2543; J2704; J3010; J3371; J3475; J3480; J7120; P9047; Q9957; Q9967

== ENCOUNTER 2023-12-13 19:34 | Outpatient (BNV) | payer OTHER, SELFPAY | END 2023-12-14 07:00 | PROVIDERS: Admitting Provider Registered Nurse Community Health; Emergency Provider Internal Medicine; Visit Provider Internal Medicine Cardiovascular Disease | DX: R09.2 Respiratory arrest (principal); I51.89 Other ill-defined heart diseases; R93.1 Abnormal findings on diagnostic imaging of heart and coronary circulation | CPT/HCPCS: 93306 ==

== ENCOUNTER → 2023-12-13 19:34 | Outpatient (BNV) | payer OTHER, SELFPAY | PROVIDERS: Admitting Provider Registered Nurse Community Health; Emergency Provider Internal Medicine; Visit Provider Registered Nurse Community Health | DX: J96.01 Acute respiratory failure with hypoxia (principal); A41.9 Sepsis, unspecified organism; R65.21 Severe sepsis with septic shock; T17.908A Unspecified foreign body in respiratory tract, part unspecified causing other injury, initial encounter | CPT/HCPCS: 36556; 99291 ==

== ENCOUNTER → 2023-12-13 19:34 | Outpatient (BNV) | payer OTHER, SELFPAY | PROVIDERS: Admitting Provider Registered Nurse Community Health; Emergency Provider Internal Medicine; PCP Internal Medicine; Visit Provider Internal Medicine Cardiovascular Disease | DX: E87.70 Fluid overload, unspecified (principal); I42.9 Cardiomyopathy, unspecified | CPT/HCPCS: 99222; 99233 ==

== ENCOUNTER → 2023-12-13 19:34 | Outpatient (BNV) | payer OTHER, SELFPAY | PROVIDERS: Admitting Provider Registered Nurse Community Health; Emergency Provider Internal Medicine; Visit Provider Internal Medicine Pulmonary Disease | DX: R09.2 Respiratory arrest (principal); F19.10 Other psychoactive substance abuse, uncomplicated; T17.908A Unspecified foreign body in respiratory tract, part unspecified causing other injury, initial encounter | CPT/HCPCS: 99291 ==

== ENCOUNTER → 2023-12-13 19:34 | Outpatient (BNV) | payer OTHER, SELFPAY | PROVIDERS: Admitting Provider Registered Nurse Community Health; Emergency Provider Internal Medicine; PCP Internal Medicine; Visit Provider Student in an Organized Health Care Education/Training Program | DX: E87.70 Fluid overload, unspecified (principal); I42.9 Cardiomyopathy, unspecified; J96.01 Acute respiratory failure with hypoxia; J18.9 Pneumonia, unspecified organism | CPT/HCPCS: 99232; 99233; 99239 ==

== ENCOUNTER 2024-01-01 04:55 | Emergency (ER) | payer OTHER, SELFPAY ==
[2024-01-01 05:15] VITALS: BP 98/60; PULSE 79; RESP 18; TEMP 36.9; O2SAT 99; BMI 22.1
[2024-01-01 05:57] LABS: MANUAL DIFF FLAG NO
[2024-01-01 05:58] LABS: Basophils Absolute Auto 0.1 X10*3/uL (0.0-0.2); Basophils Percent Auto 0.9 % (0-2); Eosinophils Absolute Auto 0.1 X10*3/uL (0.0-0.4); Eosinophils Percent Auto 1.5 % (0-4); Hemoglobin 10.2 g/dl (12.0-16.0); Imm Gran Abs Auto 0.01 X10*3/uL (0.00-0.03); Imm Gran Pct Auto 0.2 % (0.0-0.4); Lymphocytes Absolute Auto 2.3 X10*3/uL (1.2-4.9); Lymphocytes Percent Auto 35.3 % (20-40); Mean Corpuscular HGB Conc 35.2 g/dl (31.0-35.0); Mean Corpuscular Hemoglobin 29.9 pg (27.0-33.0); Mean Platelet Volume 11.6 fL (9.4-12.3); Monocytes Absolute Auto 0.5 X10*3/uL (0.1-1.2); Monocytes Percent Auto 8.2 % (2-11); Neutrophils Absolute Auto 3.6 x10*3/uL (2.0-8.3); Neutrophils Percent Auto 53.9 % (45-73); Platelet Count 234 X10*3/uL (160-400); Red Blood Count 3.41 X10*6/uL (4.20-5.50); Red Cell Distribution Width 12.2 % (11.0-16.0); White Blood Count 6.6 X10*3/uL (4.8-10.8)
--- NOTE | 2024-01-01 06:17 | PC.NURSE ---
pt up in room, walking around, crying, saying her leg was hurting. I had spoken to Dr Manjarrez, and verbal order for tylenol. Pt is allergic to tylenol and motrin. Offered a warm pack for her back/leg and was given. Informed the pt, that the new providers would be on at 630, and someone, would be in soon, to see her. Understanding voiced.
[2024-01-01 06:28] LABS: D Dimer High Sensitivity 386 NG/ML
[2024-01-01 06:33] LABS: Alanine Aminotransferase 17 U/L (0-31); Albumin Level 4.3 g/dL (3.5-5.0); Alkaline Phosphatase 86 U/L (39-117); Anion Gap 16 (12-20); Aspartate Amino Transferase 19 U/L (5-31); Bilirubin Total 0.4 mg/dL (0.0-1.0); Blood Urea Nitrogen 14 mg/dL (9-16); Calcium 10.1 mg/dL (8.4-10.2); Carbon Dioxide 37 mmol/L (22-29); Chloride 88 mmol/L (96-108); Creatinine Clr Calc Pharmacy 58.2; Estimated Glomerular Filt Rate > 60; Glucose Random 359 mg/dL (60-115); Potassium 3.2 mmol/L (3.3-5.1); Sodium 138 mmol/L (135-145); Total Protein 7.3 g/dL (6.5-8.0)
--- NOTE | 2024-01-01 07:11 | PC.NURSE ---
port to Sara Chua RN
--- NOTE | 2024-01-01 07:24 | ED.EXTPRO ---
HPI - Extremity Problem General Chief complaint: Extremity Problem Stated complaint: right leg numb Time Seen by Provider: 01/01/24 07:02 Source: patient, family and old records reviewed Mode of arrival: ambulatory Limitations: no limitations History of Present Illness ED Provider: MELYSSA MURPHY Narrative: 58 yo female with PMH of prior lung cancer s/p chemo in remission, cardiomyopathy, esophagitis from XRT, DM, COPD, asthma, polysubstance abuse but she denies this, seizures, who presents with 3 weeks of R leg pain and tingling with numbness since her respiratory induced cardiac arrest with pulmonary aspiration on 12/12 - she was discharged home on 12/21 she note when she woke up in the ICU her leg was painful - she has had arterial studies showing no acute occlusion, normal femur xray, CT head no acute findings on 12/12. She has MRI pending with PCP but unsure of what. She states she cannot live with this pain she notes her PCP gave her suboxone and she has it at home but she has been scared to try it due to the insert said not to mix xanax and suboxone. MD Complaint: extremity pain Onset (ago): week(s) (3) Pain Consistency: constant Location: right and lower extremity Quality: aching, constant and other (tingling) Radiation: distal Relieving factors: nothing Exacerbating factors: walking and palpation Associated symptoms: denies other symptoms Context: other Related Data Home Medications ?Medication ?Instructions ?Recorded ?Confirmed clonidine HCl 0.1 mg tablet 0.1 mg PO TID 12/17/19 12/13/23 zolpidem 10 mg tablet 10 mg PO BEDTIME Sleep 03/08/20 12/13/23 biotin 5,000 mcg sublingual tablet 5,000 mcg sublingual DAILY 02/10/21 12/13/23 cholecalciferol (vitamin D3) 25 25 mcg PO DAILY 02/10/21 12/13/23 mcg (1,000 unit) tablet (Vitamin D3) sumatriptan succinate 100 mg tablet 100 mg PO DAILY MRX1 PRN migraine 11/01/21 12/13/23 fluoxetine 40 mg capsule 80 mg PO DAILY@1500 depressive 11/22/23 12/13/23 disorder hydroxyzine HCl 50 mg tablet 50 mg PO BID anxiety 11/22/23 12/13/23 omeprazole 20 mg capsule,delayed 20 mg PO DAILY@0630 11/22/23 12/13/23 release alprazolam 1 mg tablet 1 mg PO TID PRN anxiety 12/13/23 12/13/23 Previous Rx's ?Medication ?Instructions ?Recorded blood sugar diagnostic (OctaviaStyle #150 ea 07/21/20 Lite Strips) levetiracetam 500 mg tablet 500 mg PO BID #180 tabs 12/20/21 metformin 500 mg tablet 500 mg PO DAILY #30 tabs 11/24/23 ondansetron 4 mg disintegrating 4 mg PO Q8H PRN nausea and 11/27/23 tablet vomiting #30 tabs furosemide 40 mg tablet 40 mg PO DAILY #30 tabs 12/22/23 metoprolol tartrate 25 mg tablet 25 mg PO BID #60 tabs 12/22/23 oxycodone 5 mg tablet 5 mg PO Q4H PRN Pain, Severe (Pain 12/22/23 Scale 7-10) #12 tabs Allergies Allergy/AdvReac Type Severity Reaction Status Date / Time acetaminophen [Tylenol] AdvReac Unknown Abdominal Verified 01/01/24 05:22 Pain ibuprofen AdvReac Unknown Abdominal Verified 01/01/24 05:22 Pain Review of Systems Review of Systems: Constitutional : No Fever, No Chills ENT/Mouth : No Ear Pain, No Hoarseness, No sore throat Eyes: No Eye Pain, No Swelling, No Redness, No Foreign Body Cardiovascular : No Chest Pain, No SOB Respiratory : No Cough, No Dyspnea Gastrointestinal : No Nausea, No Vomiting, No Diarrhea, No abdominal Pain Genitourinary : No Dysuria, No Hematuria Musculoskeletal : positive joint pain, No Myalgias, No Joint Swelling Skin : No Skin lacerations, No rash Neuro : No Weakness, No Numbness, No Loss of Consciousness, No Dizziness, No Headache, pos tingling Psych : No Anxiety/Panic, No Depression All other systems reviewed and are negative PMFSH Past Medical History Attestation statement: The following information was validated with the patient. Source: old records reviewed Medical History Cardiomyopathy Substance abuse Pulmonary nodule Diabetes type 2, uncontrolled Colitis Opioid use disorder Arthritis Fibromyalgia History of lung cancer Multinodular goiter Adrenal insufficiency due to cancer therapy Newly diagnosed diabetes Subclinical hyperthyroidism Pancreatitis (~02/2018) Radiation-induced esophagitis Hypothyroidism Depression Opioid abuse Asthma COPD (chronic obstructive pulmonary disease) Aftercare following left shoulder joint replacement surgery Non-small cell carcinoma of left lung, stage 4 Surgical History History of esophagogastroduodenoscopy (EGD) (~09/04/19) History of cholecystectomy (~12/02/08) History of endometrial ablation (~07/25/06) History of esophageal dilatation (~02/24/18) Hx of shoulder surgery (~2014) Hx of blepharoplasty (~2018) History of Family History Family History Father Pancreatic cancer Mother Diabetes Skin cancer Rheumatoid arthritis Brother Diabetes Sister Diabetes Other History of thyroid disorder Social History Social History Household Members: Spouse Housing: Unknown / Unable to assess Do you presently have visiting nurse or other home services: Yes Alcohol intake: current Alcohol intake frequency: a few times a week Alcohol type: wine Comment: Gait and balance are steady Patient Tobacco Use Status: Tobacco use Unknown Tobacco use type: Cigarette Cigarettes Per Day: 4 Years Smoked: 30 Smoked in Last 30 Days: Yes Second Hand Smoke Exposure: No Use of substances other than those prescribed or required for medical reasons: No Advance Directives: Yes Advance Directives on File: Yes Advance Directives Date on File: 05/12/20 Do you have a plan to hurt others: No Plan service: No Current occupational status: unemployed and disabled Physical Exam Vital Signs: Vital Signs: Last Vital Signs Temp 98.4 F 01/01/24 05:15 Pulse 79 01/01/24 05:15 Resp 18 01/01/24 05:15 BP 98/60 01/01/24 05:15 Pulse Ox 99 01/01/24 05:15 O2 Del Method Room Air 01/01/24 05:15 BMI result Body Mass Index 22.1 Appearance: Alert. Oriented X3. No acute distress. Eyes: Pupils equal, round and reactive to light. ENT: Pharynx normal. Neck: Normal inspection. Neck supple. CVS: Normal heart rate and rhythm. Pulses normal. Respiratory: No respiratory distress. Breath sounds normal. Abdomen: Soft and nontender. Skin: Skin warm and dry. Normal skin color. Normal skin turgor. Extremities: No lower extremity edema. R LE 2+ PT and PT pulses, color normal has pain in calf and thigh with palpation she is hyperesthetic at this time. Neuro: Oriented X 3. No motor deficit. No sensory deficit. Medical Decision Making Medical Decision Making [facility] Narrative: 58 yo female with PMH of prior lung cancer s/p chemo in remission, cardiomyopathy, esophagitis from XRT, DM, COPD, asthma, polysubstance abuse but she denies this, seizures here with c/o RLE pain and tingling after ICU stay at this time pulses intact no signs of infection will obtain basic labs, DVT study, already had femur xray and she is walking on it doubt fracture - has seen PCP who is planning MRI for her as well. CT head to rule out occult stroke during hypoxic event ordered as well. She has suboxone at home to treat her pain we discussed it is okay to trial and take. Differential Diagnosis Differential Diagnoses: The differential diagnosis associated with the presentation includes neuropathy nerve compression DVT stroke - delayed CT head ordered Admission/Observation Consideration of admission/observation: Escalation of care including admission/observation considered patient now states she is leaving and doesn't want to stay after discussion she is going to call her PCP and take her suboxone at home Lab Data [facility] Lab Attestation statement: I reviewed the patient's lab results. Manuel ojeda repleted in ED 01/01/24 05:51 01/01/24 05:51 Labs: Lab Results 01/01/24 Range/Units 05:51 WBC 6.6 (4.8-10.8) X10*3/uL RBC 3.41 L D (4.20-5.50) X10*6/uL Hgb 10.2 L (12.0-16.0) g/dl Hct 29.0 L (37.0-47.0) % MCV 85.0 (80.0-98.0) fL MCH 29.9 (27.0-33.0) pg MCHC 35.2 H (31.0-35.0) g/dl RDW 12.2 (11.0-16.0) % Plt Count 234 D (160-400) X10*3/uL MPV 11.6 (9.4-12.3) fL Immature Gran % (Auto) 0.2 (0.0-0.4) % Neut % (Auto) 53.9 (45-73) % Lymph % (Auto) 35.3 (20-40) % Dickey % (Auto) 8.2 (2-11) % Eos % (Auto) 1.5 (0-4) % Baso % (Auto) 0.9 (0-2) % Lymph # (Auto) 2.3 (1.2-4.9) X10*3/uL Dickey # (Auto) 0.5 (0.1-1.2) X10*3/uL Eos # (Auto) 0.1 (0.0-0.4) X10*3/uL Baso # (Auto) 0.1 (0.0-0.2) X10*3/uL Abs Immat Gran (auto) 0.01 (0.00-0.03) X10*3/uL Absolute Neuts (auto) 3.6 (2.0-8.3) x10*3/uL Absolute Nucleated RBC 0.000 (0.0-0.012) X10*3/uL Nucleated RBC % (auto) 0.0 (0.0-0.2) /100WBC D-Dimer High Sensitivty 386 NG/ML Sodium 138 (135-145) mmol/L Potassium 3.2 L (3.3-5.1) mmol/L Chloride 88 L (96-108) mmol/L Carbon Dioxide 37 H (22-29) mmol/L Anion Gap 16 (12-20) BUN 14 (9-16) mg/dL Creatinine 0.87 (0.5-1.4) mg/dL Estim Creat Clear Calc 58.2 Estimated GFR > 60 Random Glucose 359 H* (60-115) mg/dL Calcium 10.1 D (8.4-10.2) mg/dL Total Bilirubin 0.4 (0.0-1.0) mg/dL AST 19 (5-31) U/L ALT 17 (0-31) U/L Alkaline Phosphatase 86 (39-117) U/L Total Protein 7.3 (6.5-8.0) g/dL Albumin 4.3 (3.5-5.0) g/dL Independent Interpretation I performed an independent interpretation of an: Ultrasound and CT Scan Radiology Impression Discussion of test interpretation with radiology: I have reviewed the radiologist's reading. Independent Historian Clinical information obtained from an independent historian. History obtained from or confirmed by: Spouse External Record Review External record reviewed: Inpatient record and Outpatient record Discharge Plan Discharge Clinical Impression: Lower extremity pain Qualifiers: Laterality: right Qualified Code(s): M79.604 - Pain in right leg Patient Disposition: Home, Self-Care Instructions: Leg Pain (ED), Paresthesia (ED) Additional Instructions: your potassium was slightly low at 3.2 we gave you a dose of oral potassium in the ED we offered imaging to further investigate what is going on with your leg. Please follow up with your doctor if you have any issues or concerns please return at any time take your suboxone as prescribed. Prescriptions: No Action (DME) FreeStyle Lite Strips Strip See Rx Instructions .MEDSUPPLY Qty: 150 6RF Rx Instructions: 4 times a day ondansetron 4 mg tablet,disintegrating 4 mg PO Q8H PRN (Reason: nausea and vomiting) Qty: 30 0RF clonidine HCl 0.1 mg tablet 0.1 mg PO TID levetiracetam 500 mg tablet 500 mg PO BID Qty: 180 1RF cholecalciferol (vitamin D3) [Vitamin D3] 25 mcg (1,000 unit) Tablet 25 mcg PO DAILY biotin 5,000 mcg Tablet, Sublingual 5,000 mcg SUBLINGUAL DAILY fluoxetine 40 mg capsule 80 mg PO DAILY@1500 hydroxyzine HCl 50 mg tablet 50 mg PO BID omeprazole 20 mg capsule,delayed release(DR/EC) 20 mg PO DAILY@0630 metformin 500 mg tablet 500 mg PO DAILY Qty: 30 0RF alprazolam 1 mg tablet 1 mg PO TID PRN (Reason: anxiety) furosemide 40 mg Tablet 40 mg PO DAILY Qty: 30 0RF Protocol: Hold for SBP< HOLD for SBP < : 90 oxycodone 5 mg Tablet 5 mg PO Q4H PRN (Reason: Pain, Severe (Pain Scale 7-10)) Qty: 12 0RF Rx Instructions: Partial Fill upon patient request. metoprolol tartrate 25 mg Tablet 25 mg PO BID Qty: 60 0RF Protocol: Hold for SBP/HR < HOLD for SBP < : 90 HOLD for HR < : 60 zolpidem 10 mg tablet 10 mg PO BEDTIME sumatriptan succinate 100 mg tablet 100 mg PO DAILY MRX1 PRN (Reason: migraine) Print Language: Ukrainian
[2024-01-01] MEDS: Potassium Chloride ER 20 MEQ TAB.ER.PRT PO (07:30)
--- NOTE | 2024-01-01 07:42 | PC.NURSE ---
patient called this RN into room, requesting to leave, educated pateint that if she leaves and comes back that she will have to start the process all over again, patient states that is fine, ambulatory with steady gait in room, made aware, no PIV in place
[2024-01-01 07:45] VITALS: BP 98/60; PULSE 79; RESP 18; TEMP 36.9; O2SAT 99
== END 2024-01-01 07:48 | disposition home or self-care (01) ==
PROVIDERS: Emergency Provider Emergency Medicine; PCP Internal Medicine
DX: M79.604 Pain in right leg (principal); F19.10 Other psychoactive substance abuse, uncomplicated; E11.9 Type 2 diabetes mellitus without complications; J45.909 Unspecified asthma, uncomplicated; C34.90 Malignant neoplasm of unspecified part of unspecified bronchus or lung; Z92.21 Personal history of antineoplastic chemotherapy; F17.210 Nicotine dependence, cigarettes, uncomplicated; Z79.84 Long term (current) use of oral hypoglycemic drugs; Z79.899 Other long term (current) drug therapy
CPT/HCPCS: 36415; 80053; 85025; 85379; 99283

== ENCOUNTER 2024-01-22 | Outpatient (REF) | payer OTHER, SELFPAY | END 2024-01-22 20:10 | disposition home or self-care (01) | LOC: HO.MRI | PROVIDERS: PCP Internal Medicine; Visit Provider Internal Medicine | DX: M79.604 Pain in right leg (principal); Z13.89 Encounter for screening for other disorder | CPT/HCPCS: 72148 ==

== ENCOUNTER → 2024-01-22 13:59 | Outpatient (REF) | payer OTHER, SELFPAY ==
--- NOTE | ~2024-01-22 | MR_ITS ---
EXAMINATION: MR LUMBAR SPINE WITHOUT CONTRAST CLINICAL INFORMATION: Lumbar spine pain COMPARISON: MRI lumbar spine on 05/11/2016 TECHNIQUE: MRI of the lumbar spine was obtained using routine sequences without contrast. FINDINGS: The visualized lumbar vertebrae are intact with normal alignment. Evaluation of the intervertebral discs show: T12/L1: Intervertebral disc height is normal, with normal T2 signal. No focal disc herniation is seen. Bilateral T12/L1 neuroforamina are patent. Bilateral apophyseal joints are intact with normal alignment. L-1/L-2: Intervertebral disc height is normal, with mild loss of T2 signal. Anterior bridging syndesmophytes are present. Mild posterior disc protrusion is seen. Bilateral L1-L2 neuroforamina are patent. Bilateral apophyseal joints are intact with normal alignment. Wedge-shaped T2 hyperintensity, T1 hypointensity is seen at anterior inferior corner of L1 vertebral body. L2/L3: Intervertebral disc height is normal, with mild loss of T2 signal. Mild broad-based disc bulge is seen. Bilateral L2-L3 neuroforamina are patent. Bilateral apophyseal joints are intact with normal alignment. L3/L4: Intervertebral disc height is normal, with mild loss of T2 signal. No focal disc herniation is seen. Bilateral L3-L4 neuroforamina are patent. Bilateral apophyseal joints are intact with normal alignment. L4/L5: Intervertebral disc height is normal, with normal T2 signal. No focal disc herniation is seen. Bilateral L4-L5 neuroforamina are patent. Bilateral apophyseal joints are intact with normal alignment. L5/S1: Intervertebral disc height is normal, with normal T2 signal. No focal disc herniation is seen. Bilateral L5-S1 neuroforamina are patent. Bilateral apophyseal joints are intact with normal alignment. Conus medullaris is seen normally at L1 level. MR/MR lumbar spine wo con IMPRESSION: 1. Interval progression of Mild degenerative disc disease at L1-L2, L2-L3 and L3-L4 levels. 2. Interval development of mild posterior L1-L2 disc protrusion. 3. No significant spinal canal or neural foraminal stenosis is seen. 4. Unchanged Wedge-shaped T2 hyperintensity, T1 hypointensity is seen at anterior inferior corner of L1 vertebral body, could represent persistent Modic type I degenerative vertebral endplate changes. Electronically signed by: Hudson Coburn MD 02/12/2024 11:42 AM SUSANNE HUDSON
--- NOTE | 2024-01-22 14:05 | CA_ITS ---
Transthoracic Echocardiogram Patient (Last, First, Middle): Desire Aguillon M Gender: Female Date of : 1965 Age: 58 Procedure Date: 01/22/2024 Procedure Type: Transthoracic Echocardiogram Location: OP Height: 160.02 cm Weight: 54.43 kg BSA: 1.56 m2 Heart Rate: bpm BP: 126 / 86 mmHg Cycle Repairer: WILLIAM Referring MD: James Faith MD Business Development Agent: James Faith MD Symptoms: I42.9 - Cardiomyopathy, unspecified Study Quality: Adequate ECG Rhythm: Sinus Conclusions: - Normal LV ejection fraction of 60 65% Findings Left Ventricle Normal left ventricular size, thickness, and systolic function. The visually estimated ejection fraction is between 60-65%. Spectral Doppler is indicative of an impaired relaxation filling pattern. E/E prime ratio is <8, consistent with normal filling pressures. Evidence suggests grade I (mild) diastolic dysfunction. Peak GLS is -21.8%, within normal limits. Prior Study Comparison Significant changes compared to prior study dated: 12/14/2023. LV systolic function has normalized Measurements 2D Linear Measurements IVSd: 0.93 0.6-0.9/0.6-1.0 cm LVIDd: 3.18 3.9-5.3/4.2-5.9 cm LVIDd Index: 2.04 2.4-3.2/2.2-3.1 cm/m2 LVIDs: 2.31 2.0-3.6 cm LVPWd: 1.05 0.7-1.1 cm LV Mass: 109.69 67-162/88-224 g LV Mass Index: 70.31 43-95/49-115 g/m2 LVOT Diam: 2.00 3.0+(-)1.3 cm 2D Systolic Function EF 4C: 61.30 >55% EF 2C: 62.30 >55% EF BiP: 62.40 >55% Mitral Valve MV Pk E: 0.64 MV PK A: 0.71 MV Decel Time: 240.00 E/A: 0.90 E'Lateral: 7.83 E'Medial: 6.74 E/E' Med: 9.50 E/E' Lat: 8.20 PHT: 70.00 MVA PHT: 3.14 Decel [place]: 2.68 LVOT LVOT Pk Daniele: 0.98 LVOT Mn Daniele: 0.63 LVOT VTI: 0.17 LVOT Pk Grad: 4.00 LVOT Mn Grad: 2.00 LVOT Diam: 2.00 LVOT Area: 3.14 Diastolic Function MV Pk E: 0.64 MV Pk A: 0.71 E/A: 0.90 E'Medial: 6.74 E/E' Med: 9.50 E' Laterial: 7.83 E/E' Lat: 8.20 Tricuspid Valve RA Press: 3.00 Updated in Other Vendor System with Status of Final James Faith MD electronically signed on 01/22/2024 3:51:08 PM with status of Final
== END ==
LOC: HO.CARD 13:59
PROVIDERS: PCP Internal Medicine; Visit Provider Internal Medicine Cardiovascular Disease
DX: I42.9 Cardiomyopathy, unspecified (principal); R06.09 Other forms of dyspnea; R55 Syncope and collapse
CPT/HCPCS: 72148; 93308; 93356

== ENCOUNTER → 2024-01-22 14:05 | Outpatient (BNV) | payer OTHER, SELFPAY | PROVIDERS: PCP Internal Medicine; Visit Provider Internal Medicine Cardiovascular Disease | DX: I42.8 Other cardiomyopathies (principal); I51.89 Other ill-defined heart diseases | CPT/HCPCS: 93308; 93321; 93356 ==

== ENCOUNTER 2024-01-23 04:08 | Emergency (ER) | payer OTHER, SELFPAY ==
[2024-01-23 04:15] VITALS: BP 142/86; PULSE 105; RESP 16; TEMP 36.5; O2SAT 98; BMI 23.0
--- NOTE | 2024-01-23 05:48 | PC.NURSE ---
pt at pt side and messaging her upper right leg. pt states her pain has been since she was discharged home she has had pain rad from her lower leg up to her sciatica. 12/18
[2024-01-23 05:55] VITALS: BP 115/84; PULSE 82; RESP 16; TEMP 36.6; O2SAT 100
--- NOTE | 2024-01-23 06:57 | ED.LOWEXIN ---
HPI - Extremity Injury (Lower) General Chief Complaint: Extremity Injury, Lower Stated Complaint: Multiple issues cardiac arrest 1 month ago Time Seen by Provider: 01/23/24 06:57 Source: patient and RN notes reviewed Mode of arrival: ambulatory Limitations: no limitations History of Present Illness ED Provider: Mireya Tadeo PA-C HPI Narrative: This is a 58-year-old female, with PMH of prior lung cancer s/p chemo in remission, cardiomyopathy, esophagitis from XRT, DM, COPD, asthma, polysubstance abuse, seizures, who presents emergency department with ongoing right leg pain for the last 4 weeks. Patient reports that she has had pain, and tingling with numbness since her respiratory induced cardiac arrest with pulmonary aspiration on 12/12, she was discharged home on 12/21, and awoke in the ICU in her right leg was painful. At that time she had arterial studies which showed no acute occlusion, normal femur x-ray. She was seen on 01/01/2024 due to this pain. She was discharged and was told to follow-up with her PCP, and take Suboxone. She states that she has been taking her Suboxone however states that she only has 1 left, and states that she has contacted her primary as she feels as though this is not a right fit for her. She states that she previously had a history of polysubstance abuse however states that she does not have this problem anymore. She states that this pain has been the same pain she has been experiencing for the last 4 weeks and states that she is unsure what to do given her allergies to Tylenol and Motrin. She has been massaging the area. She denies any urinary or bowel incontinence or retention. She states that she had an MRI yesterday of her spine, which she is awaiting the results for.. She denies any saddle anesthesia. No back pain. Pain starts in her right buttock and radiates down her posterior leg and into her foot. She describes his pain as a burning pain. No other complaints or concerns at this time. Onset (ago): week(s) Severity: moderate Other symptoms: none Related Data Home Medications ?Medication ?Instructions ?Recorded ?Confirmed clonidine HCl 0.1 mg tablet 0.1 mg PO TID 12/17/19 12/13/23 zolpidem 10 mg tablet 10 mg PO BEDTIME Sleep 03/08/20 12/13/23 biotin 5,000 mcg sublingual tablet 5,000 mcg sublingual DAILY 02/10/21 12/13/23 cholecalciferol (vitamin D3) 25 25 mcg PO DAILY 02/10/21 12/13/23 mcg (1,000 unit) tablet (Vitamin D3) sumatriptan succinate 100 mg tablet 100 mg PO DAILY MRX1 PRN migraine 11/01/21 12/13/23 fluoxetine 40 mg capsule 80 mg PO DAILY@1500 depressive 11/22/23 12/13/23 disorder hydroxyzine HCl 50 mg tablet 50 mg PO BID anxiety 11/22/23 12/13/23 omeprazole 20 mg capsule,delayed 20 mg PO DAILY@0630 11/22/23 12/13/23 release alprazolam 1 mg tablet 1 mg PO TID PRN anxiety 12/13/23 12/13/23 Previous Rx's ?Medication ?Instructions ?Recorded blood sugar diagnostic (FreeStyle #150 ea 07/21/20 Lite Strips) levetiracetam 500 mg tablet 500 mg PO BID #180 tabs 12/20/21 metformin 500 mg tablet 500 mg PO DAILY #30 tabs 11/24/23 oxycodone 5 mg tablet 5 mg PO Q4H PRN Pain, Severe (Pain 12/22/23 Scale 7-10) #12 tabs ondansetron 4 mg disintegrating 4 mg PO Q8H PRN nausea and 01/09/24 tablet vomiting #30 tabs furosemide 40 mg tablet 40 mg PO DAILY #30 tabs 01/23/24 metoprolol tartrate 25 mg tablet 25 mg PO BID #60 tabs 01/23/24 Allergies Allergy/AdvReac Type Severity Reaction Status Date / Time acetaminophen [Tylenol] AdvReac Unknown Abdominal Verified 01/23/24 04:18 Pain ibuprofen AdvReac Unknown Abdominal Verified 01/23/24 04:18 Pain Review of Systems Review of Systems: Yes all other systems are reviewed and are negative Constitutional: Constitutional: Reports as per [facility] Past Medical History Medical History Cardiomyopathy Substance abuse Pulmonary nodule Diabetes type 2, uncontrolled Colitis Opioid use disorder Arthritis Fibromyalgia History of lung cancer Multinodular goiter Adrenal insufficiency due to cancer therapy Newly diagnosed diabetes Subclinical hyperthyroidism Pancreatitis (~02/2018) Radiation-induced esophagitis Hypothyroidism Depression Opioid abuse Asthma COPD (chronic obstructive pulmonary disease) Aftercare following left shoulder joint replacement surgery Non-small cell carcinoma of left lung, stage 4 Surgical History History of esophagogastroduodenoscopy (EGD) (~09/04/19) History of cholecystectomy (~12/02/08) History of endometrial ablation (~07/25/06) History of esophageal dilatation (~02/24/18) Hx of shoulder surgery (~2014) Hx of blepharoplasty (~2018) History of Family History Family History Father Pancreatic cancer Mother Diabetes Skin cancer Rheumatoid arthritis Brother Diabetes Sister Diabetes Other History of thyroid disorder Social History Social History Household Members: Spouse Housing: Unknown / Unable to assess Do you presently have visiting nurse or other home services: Yes Alcohol intake: current Alcohol intake frequency: a few times a week Alcohol type: wine Comment: Gait and balance are steady Patient Tobacco Use Status: Tobacco use Unknown Tobacco use type: Cigarette Cigarettes Per Day: 4 Years Smoked: 30 Smoked in Last 30 Days: Yes Second Hand Smoke Exposure: No Use of substances other than those prescribed or required for medical reasons: No Any prior treatment program specific to substance use: No Advance Directives: Yes Advance Directives on File: Yes Advance Directives Date on File: 05/12/20 Do you have a plan to hurt others: No Plan Patient : No service: No Current occupational status: unemployed and disabled Physical Exam Vital Signs: Vital Signs: Last Vital Signs Temp 97.8 F 01/23/24 05:55 Pulse 82 01/23/24 05:55 Resp 16 01/23/24 05:55 BP 115/84 01/23/24 05:55 Pulse Ox 100 01/23/24 05:55 O2 Del Method Room Air 01/23/24 05:55 BMI result Body Mass Index 23.0 Const: General: cooperative, comfortable and no acute distress Orientation/consciousness: patient oriented x3 Limitations: no limitations HEENT: Head: Yes normal to inspection, Yes normocephalic and Yes atraumatic Ears: hearing grossly normal bilaterally General nose exam: Normal external nose present Face and sinus: Yes normal facial exam Mouth: Normal oral and palatal mucosa present, oropharynx normal and moist mucous membranes Throat: Yes posterior oropharynx normal Eyes: General: appearance normal, both eyes and all related structures Eyelids: Yes eyelids normal Conjunctivae: conjunctivae normal Sclerae: sclerae normal Pupils: Equal, round and reactive pupils present EOM: EOMs intact bilaterally Neck: Neck: Yes normal visual inspection, Yes full ROM and Yes no lymphadenopathy Lymphatic: no lymphadenopathy noted Chest: Chest palpation & inspection: normal inspection of the chest Resp: Effort & Inspection: normal respiratory effort and able to speak in complete sentences Auscultation: clear to auscultation bilaterally, no crackles, no rales, no rhonchi and no wheezes Cardio: Rate: regular rate Rhythm: regular rhythm Heart sounds: S1 normal heart sound present and S2 normal heart sound present GI: Inspection: Yes normal to inspection Back/Spine/Pelvis: Other: No tenderness palpation along the lumbar spine or lumbar musculature. Patient is ambulatory with steady gait. Strength 5/5 in lower extremities. Skin: General skin exam: no rashes or lesions noted Trauma: no lacerations or abrasions Wounds: no wounds Neuro: General: patient oriented x3 and moves all extremities Cranial nerves: Yes Equal, round and reactive pupils present Extrem: Other: Right leg is well perfused, no overlying skin changes or warmth. Strong DP pulse. Distal sensation circulation intact. Capillary refill less than 2 seconds. She has no calf tenderness. She has tenderness palpation along her right buttock, worsening pain with straight leg raise. General: Yes normal to inspection Right upper extremity: normal to inspection Left upper extremity: normal to inspection Right lower extremity: normal to inspection Left lower extremity: normal to inspection Medications Administered Discontinued Medications Generic Name Dose Route Start Last Admin Trade Name Freq PRN Reason Stop Dose Admin Ketorolac Tromethamine 30 mg 01/23/24 07:27 01/23/24 07:36 Ketorolac Tromethamine 30 Mg/Ml Vial IM 01/23/24 07:28 30 mg ONCE ONE Administration Medical Decision Making Medical Decision Making [facility] Narrative: This is a 58-year-old female who presents emergency department with complaints of ongoing left leg pain. She describes his pain as a burning sensation. She was seen previously on 3 for similar symptoms. She reports that she is unable to take a lot of pain medication secondary to her allergies. She had an MRI of her lumbar spine performed yesterday, awaiting the results. She reports that she has a allergy to ibuprofen and Tylenol however she has received Toradol, of recent she had this inpatient and tolerated this well. I medicated her with a 1 time dose of Toradol. Unable to medicate her with muscle relaxants as she has a seizure disorder. I discussed this with patient. I stressed the importance of following up with her primary care physician, and I also referred her to pain management for further management of this pain. She has no red flag back symptoms. This patient presents with back pain most consistent with lumbar radiculopathy. Her leg is well perfused, she has no calf tenderness to suggest DVT. No evidence of arterial occlusion given distal sensation circulation intact. She is ambulatory. Differential diagnoses includes lumbago versus musculoskeletal spasm / strain versus sciatica. No back pain red flags on history or physical. Presentation not consistent with malignancy (lack of history of malignancy, lack of B symptoms), fracture (no trauma, no bony tenderness to palpation), cauda equina (no bowel or urinary incontinence/retention, no saddle anesthesia, no distal weakness), pyelonephritis (afebrile, no CVAT, no urinary symptoms). Given the clinical picture, no indication for imaging at this time. Given strict return precautions. She understands and agrees with plan. Patient stable for discharge. Differential Diagnosis Differential Diagnoses: The differential diagnosis associated with the presentation includes See above Discharge Plan Discharge Clinical Impression: Lumbar radiculopathy, right Patient Disposition: Home, Self-Care Instructions: Lumbar Radiculopathy (ED), Lower Back Exercises (ED) Additional Instructions: You were seen in the emergency department due to ongoing right leg pain. This is likely attributed to something called lumbar radiculopathy. Given your allergies, we are very limited onto what we can provide to for pain management. Due to your comorbid conditions, I am also unable to prescribing muscle relaxants. I medicated you with a medication called Toradol. This is an injection in helps with inflammation. I am referring you to pain management. Please call them today to make an appointment. Please also follow-up with your PCP. If any new or worsening symptoms occur including but not limited to urinary or bowel incontinence or retention, chest pain, shortness for breath, please return for re-evaluation. Prescriptions: No Action (DME) FreeStyle Lite Strips Strip See Rx Instructions .MEDSUPPLY Qty: 150 6RF Rx Instructions: 4 times a day ondansetron 4 mg tablet,disintegrating 4 mg PO Q8H PRN (Reason: nausea and vomiting) Qty: 30 0RF furosemide 40 mg tablet 40 mg PO DAILY Qty: 30 2RF Protocol: Hold for SBP< HOLD for SBP < : 90 metoprolol tartrate 25 mg tablet 25 mg PO BID Qty: 60 2RF Protocol: Hold for SBP/HR < HOLD for SBP < : 90 HOLD for HR < : 60 clonidine HCl 0.1 mg tablet 0.1 mg PO TID levetiracetam 500 mg tablet 500 mg PO BID Qty: 180 1RF cholecalciferol (vitamin D3) [Vitamin D3] 25 mcg (1,000 unit) Tablet 25 mcg PO DAILY biotin 5,000 mcg Tablet, Sublingual 5,000 mcg SUBLINGUAL DAILY fluoxetine 40 mg capsule 80 mg PO DAILY@1500 hydroxyzine HCl 50 mg tablet 50 mg PO BID omeprazole 20 mg capsule,delayed release(DR/EC) 20 mg PO DAILY@0630 metformin 500 mg tablet 500 mg PO DAILY Qty: 30 0RF alprazolam 1 mg tablet 1 mg PO TID PRN (Reason: anxiety) oxycodone 5 mg Tablet 5 mg PO Q4H PRN (Reason: Pain, Severe (Pain Scale 7-10)) Qty: 12 0RF Rx Instructions: Partial Fill upon patient request. zolpidem 10 mg tablet 10 mg PO BEDTIME sumatriptan succinate 100 mg tablet 100 mg PO DAILY MRX1 PRN (Reason: migraine) Referrals: [facility] [place] [facility] [Provider Group] Discharge Date/Time: 01/23/24 08:01 Print Language: Lao
[2024-01-23] MEDS: Ketorolac Tromethamine 30 MG/ML VIAL IM (07:36)
--- NOTE | 2024-01-23 08:00 | PC.NURSE ---
patient noted to left ED before dc paperwork and dc vitals
== END 2024-01-23 08:01 | disposition home or self-care (01) ==
PROVIDERS: Emergency Provider Emergency Medicine Emergency Medical Services; PCP Internal Medicine
DX: M54.16 Radiculopathy, lumbar region (principal); E11.9 Type 2 diabetes mellitus without complications; J44.9 Chronic obstructive pulmonary disease, unspecified; Z79.899 Other long term (current) drug therapy
CPT/HCPCS: 96372; 99284; J1885

== ENCOUNTER 2025-02-09 07:37 | Emergency (ER) | payer OTHER, SELFPAY ==
--- NOTE | ~2025-02-09 | XR_ITS ---
EXAMINATION: XR CHEST 2 VIEWS HISTORY: chest pain COMPARISON: Comparison is made with the prior examination dated 12/13/2023. FINDINGS: PA and lateral views of the chest are submitted. The lungs are expanded and clear. There is superior retraction and fullness of the right hilum. There is no pleural effusion, pneumothorax, or pulmonary vascular congestion. The heart is normal in size. The bones are intact. XR/XR chest 2V IMPRESSION: Superior retraction and fullness of the right hilum. A mass in this region is not excluded. Further evaluation with chest CT with contrast is recommended. Electronically signed by: Wood Diana MD 02/09/2025 08:43 AM [facility]
--- NOTE | ~2025-02-09 | CT_ITS ---
EXAMINATION: CT CHEST ANGIOGRAPHY WITH IV CONTRAST INDICATION: chest pain COMPARISON: Comparison is made with the prior examination dated 05/12/2023. TECHNIQUE: Helical CT scan of the chest was performed following administration of intravenous contrast (65 mL Omnipaque 350). The contrast bolus was timed to optimally opacify the pulmonary arteries. Thin sections were obtained through the pulmonary arteries. Coronal and sagittal reformatted images were generated. 3D/MIP reconstructed images are also obtained and reviewed. This CT exam was performed with one or more of the following dose reduction techniques: automated exposure control, adjustment of the mA and/or kV according to patient size, use of iterative reconstruction technique. DLP: 197 mGy-cm CHEST: THYROID: The thyroid gland is unremarkable. PULMONARY ARTERIES: No intraluminal filling defects are identified within the pulmonary arteries to suggest pulmonary emboli. LUNGS: There is a 4.6 x 1.7 x 3.3 cm right upper lobe/paratracheal mass, compatible with neoplasm. The lungs are otherwise clear. MEDIASTINUM: No AP window lymphadenopathy. AMY: There are enlarged right hilar lymph nodes measuring up to 2.0 cm. No left hilar lymphadenopathy. CARDIOVASCULATURE: The heart is normal in size. There is no pericardial effusion. The thoracic aorta is normal in caliber. DEGREE OF CORONARY CALCIFICATION: not evaluable, due to dense contrast in the coronary arteries. PLEURA: There is no pleural effusion. No pneumothorax. MAIN AIRWAYS: The mainstem bronchi and proximal branches are patent. AXILLA: There is no axillary lymphadenopathy. UPPER ABDOMEN: The visualized portions of the liver, spleen, and adrenals are unremarkable. BONES AND SOFT TISSUES: Unremarkable. CT/CT angio chest PE protocol IMPRESSION: 1. No evidence of pulmonary emboli. 2. 4.6 x 1.7 x 3.3 cm right upper lobe/paratracheal mass, compatible with neoplasm. Associated right hilar lymphadenopathy. Electronically signed by: Wood Diana MD 02/09/2025 12:22 PM [facility]
--- NOTE | 2025-02-09 07:38 | ECG_ITS ---
Test Reason : CP Blood Pressure : */* mmHG Vent. Rate : 80 BPM Atrial Rate : 80 BPM P-R Int : 174 ms QRS Dur : 68 ms QT Int : 398 ms P-R-T Axes : 68 57 59 degrees QTcB Int : 459 ms Normal sinus rhythm Biatrial enlargement Abnormal ECG When compared with ECG of 13-Dec-2023 21:58, T wave amplitude has decreased in Anterolateral leads QT has shortened Referred By: Mariam Hernandez Electronically Signed By: YUE WATTS
[2025-02-09 07:51] VITALS: BP 124/77; PULSE 80; RESP 20; TEMP 36.6; O2SAT 97; BMI 23.6
--- NOTE | 2025-02-09 07:57 | ED.GENADULT ---
HPI - General Adult General Chief complaint: Chest Pain Stated complaint: chest pain, high BP, med refill Time Seen by Provider: 02/09/25 10:59 Source: patient Mode of arrival: ambulatory Limitations: no limitations History of Present Illness ED Provider: HPI narrative: 59-year-old female, with PMH of prior lung cancer s/p chemo in remission, cardiomyopathy, esophagitis from XRT, DM, COPD, asthma, polysubstance abuse, seizures, presenting with heart palpitations, chest pain, reports vomiting decreased p.o. intake, has not taken Farxiga for the past 4 days, tearful here with a partner. Related Data Home Medications ?Medication ?Instructions ?Recorded ?Confirmed clonidine HCl 0.1 mg tablet 0.1 mg PO TID 12/17/19 12/13/23 zolpidem 10 mg tablet 10 mg PO BEDTIME Sleep 03/08/20 12/13/23 biotin 5,000 mcg sublingual tablet 5,000 mcg sublingual DAILY 02/10/21 12/13/23 cholecalciferol (vitamin D3) 25 25 mcg PO DAILY 02/10/21 12/13/23 mcg (1,000 unit) tablet (Vitamin D3) sumatriptan succinate 100 mg tablet 100 mg PO DAILY MRX1 PRN migraine 11/01/21 12/13/23 fluoxetine 40 mg capsule 80 mg PO DAILY@1500 depressive 11/22/23 12/13/23 disorder hydroxyzine HCl 50 mg tablet 50 mg PO BID anxiety 11/22/23 12/13/23 omeprazole 20 mg capsule,delayed 20 mg PO DAILY@0630 11/22/23 12/13/23 release alprazolam 1 mg tablet 1 mg PO TID PRN anxiety 12/13/23 12/13/23 Previous Rx's ?Medication ?Instructions ?Recorded blood sugar diagnostic (FreeStyle #150 ea 07/21/20 Lite Strips) levetiracetam 500 mg tablet 500 mg PO BID #180 tabs 12/20/21 metformin 500 mg tablet 500 mg PO DAILY #30 tabs 11/24/23 oxycodone 5 mg tablet 5 mg PO Q4H PRN Pain, Severe (Pain 12/22/23 Scale 7-10) #12 tabs furosemide 40 mg tablet 40 mg PO DAILY #90 tabs 03/10/25 metoprolol tartrate 25 mg tablet 25 mg PO BID #180 tabs 05/18/24 ondansetron 4 mg disintegrating 4 mg PO Q8H PRN nausea and 07/15/24 tablet vomiting #30 tabs diazepam 5 mg tablet (Valium) 5 mg PO TID PRN anxiety 4 days #12 02/09/25 tabs magnesium 200 mg tablet 400 mg (2 x 200 mg) PO DAILY 7 02/09/25 days #14 tabs ondansetron 4 mg disintegrating 4 mg PO Q8H PRN nausea and 02/09/25 tablet vomiting #4 tabs Allergies Allergy/AdvReac Type Severity Reaction Status Date / Time acetaminophen (Tylenol) AdvReac Unknown Abdominal Verified 02/09/25 07:59 Pain ibuprofen AdvReac Unknown Abdominal Verified 02/09/25 07:59 Pain Review of Systems Constitutional: Constitutional: Reports as per [facility] Past Medical History Medical History Cardiomyopathy Substance abuse Pulmonary nodule Diabetes type 2, uncontrolled Colitis Opioid use disorder Arthritis Fibromyalgia History of lung cancer Multinodular goiter Adrenal insufficiency due to cancer therapy Newly diagnosed diabetes Subclinical hyperthyroidism Pancreatitis (~02/2018) Radiation-induced esophagitis Hypothyroidism Depression Opioid abuse Asthma COPD (chronic obstructive pulmonary disease) Aftercare following left shoulder joint replacement surgery Non-small cell carcinoma of left lung, stage 4 Surgical History History of esophagogastroduodenoscopy (EGD) (~09/04/19) History of cholecystectomy (~12/02/08) History of endometrial ablation (~07/25/06) History of esophageal dilatation (~02/24/18) Hx of shoulder surgery (~2014) Hx of blepharoplasty (~2018) History of Family History Family History Father Pancreatic cancer Mother Diabetes Skin cancer Rheumatoid arthritis Brother Diabetes Sister Diabetes Other History of thyroid disorder Social History Social History Household Members: Spouse Housing: Unknown / Unable to assess Do you presently have visiting nurse or other home services: Yes Alcohol intake: current Alcohol intake frequency: does not drink Alcohol type: wine Comment: Gait and balance are steady Patient Tobacco Use Status: Tobacco use Unknown Tobacco use type: Cigarette Cigarettes Per Day: 4 Years Smoked: 30 Smoked in Last 30 Days: Yes Second Hand Smoke Exposure: No Use of substances other than those prescribed or required for medical reasons: No Advance Directives: Yes Advance Directives on File: Yes Advance Directives Date on File: 05/12/20 Do you have a plan to hurt others: No Plan service: No Current occupational status: unemployed and disabled Physical Exam ED Exam Exam: ?General: ??looks age appropriate, anxious, tearful ?PERRLA, EOMI, MMM, Neck: Supple, no LAD ?CV: RRR, no obvious murmurs appreciated ?Resp: ?No wheezing rales rhonchi no stridor moving air well Abd: ?Bowel sounds are present, no tenderness no rebound no rigidity MSK: FROM, strength 5/5 all extremities Skin: Warm, dry, intact, ?Neuro: ?Alert and oriented x3, moving upper and lower extremities symmetrically, no obvious facial asymmetry noted, cranial nerves 2-12 intact, there was no evidence for nystagmus horizontal or rotary or vertical Vital Signs: Vital Signs - 24 hr 02/09/25 07:51 02/09/25 10:59 Temperature 97.8 F 98.5 F Pulse Rate 80 66 Respiratory Rate 20 16 Blood Pressure 124/77 117/78 Pulse Oximetry 97 96 Oxygen Delivery Method Room Air Room Air BMI result Body Mass Index 23.6 Course Course Course Narrative: Rapid medical examination performed in triage by Mariam Hernandez PA-C: Patient is a 59 year old assigned female at presenting to the emergency department with multiple complaints including body swelling and chest pain. Detailed physical exam and review of systems are deferred to the air grinder. EKG, labs, imaging, swabs ordered. Patient placed back in the waiting room pending room availability and results. Medications Administered Discontinued Medications Generic Name Dose Route Start Last Admin Trade Name Freq PRN Reason Stop Dose Admin Diazepam 5 mg 02/09/25 11:35 02/09/25 11:43 Diazepam 10 Mg/2 Ml Cartridge IVPUSH 02/09/25 11:36 5 mg STAT STA Administration Sodium Chloride 1,000 mls @ 999 mls/hr 02/09/25 11:00 02/09/25 12:45 Ns IV 02/09/25 12:00 Infused .Q1H1M SHABANA Infusion Magnesium Sulfate 2 gm in 50 mls @ 25 mls/hr 02/09/25 11:00 02/09/25 11:08 Magnesium Sulfate/H2o IV 02/09/25 12:59 25 mls/hr ONCE ONE Administration Iohexol 100 ml 02/09/25 11:49 02/09/25 11:50 Iohexol 350 Mg/Ml 100 Ml Infus..Btl IV 02/09/25 11:50 65 ml ONCE ONE Administration Medical Decision Making Medical Decision Making [facility] Narrative: 12:21 PM 02/09/2025 (Dr. Prabhu Lang): Blood work revealed MARY, low magnesium, chest x-ray suspicious for lung mass, she has a history of lung cancer, has been in remission, reports history of vertigo but no evidence of vertigo on physical examination, disposition to be determined we will obtain further imaging such as CT angio to evaluate for PE and consolidations versus mass Dr. Garcia is her oncologist 12:56 PM 02/09/2025 (Dr. Prabhu Lang): Patient's CTA negative for PE but there is right upper lung mass, I have low through a prior CTs and since 2020 in July she has had no mass and follow up with thoracic surgery Dr. Melvin Payne. I send him information to Dr. Garcia to see what are her recommendations regarding follow up. 1:44 PM 02/09/2025 (Dr. Prabhu Lang): Patient updated, discussed with the oncology, will follow up with the patient in office already has an appointment Differential Diagnosis Differential Diagnoses: The differential diagnosis associated with the presentation includes (Vertigo, mass, dehydration, electrolyte derangements, PE) Admission/Observation Consideration of admission/observation: Escalation of care including admission/observation considered 1. No evidence of pulmonary emboli. 2. 4.6 x 1.7 x 3.3 cm right upper lobe/paratracheal mass, compatible with neoplasm. Associated right hilar lymphadenopathy. Lab Data [facility] Lab Attestation statement: I reviewed the patient's lab results. 02/09/25 08:06 02/09/25 08:06 Labs: Lab Results 02/09/25 Range/Units 08:06 WBC 17.0 H (4.8-10.8) X10*3/uL RBC 4.61 D (4.20-5.50) X10*6/uL Hgb 13.4 D (12.0-16.0) g/dl Hct 39.1 D (37.0-47.0) % MCV 84.8 (80.0-98.0) fL MCH 29.1 (27.0-33.0) pg MCHC 34.3 (31.0-35.0) g/dl RDW 12.3 (11.0-16.0) % Plt Count 352 D (160-400) X10*3/uL MPV 11.9 (9.4-12.3) fL Immature Gran % (Auto) 0.6 H (0.0-0.4) % Neut % (Auto) 76.2 H (45-73) % Lymph % (Auto) 16.1 L (20-40) % [place] % (Auto) 6.0 (2-11) % Eos % (Auto) 0.6 (0-4) % Baso % (Auto) 0.5 (0-2) % Lymph # (Auto) 2.7 (1.2-4.9) X10*3/uL [place] # (Auto) 1.0 (0.1-1.2) X10*3/uL Eos # (Auto) 0.1 (0.0-0.4) X10*3/uL Baso # (Auto) 0.1 (0.0-0.2) X10*3/uL Abs Immat Gran (auto) 0.10 H (0.00-0.03) X10*3/uL Absolute Neuts (auto) 13.0 H (2.0-8.3) x10*3/uL Absolute Nucleated RBC 0.000 (0.0-0.012) X10*3/uL Nucleated RBC % (auto) 0.0 (0.0-0.2) /100WBC Sodium 135 (135-145) mmol/L Potassium 3.8 (3.3-5.1) mmol/L Chloride 92 L (96-108) mmol/L Carbon Dioxide 29 (22-29) mmol/L Anion Gap 18 (12-20) BUN 28 H (9-16) mg/dL Creatinine 1.61 H (0.5-1.4) mg/dL Estim Creat Clear Calc 32.5 Estimated GFR 33 Random Glucose 239 H (60-115) mg/dL Calcium 9.8 (8.4-10.2) mg/dL Magnesium 1.3 L* (1.6-2.6) mg/dL Total Bilirubin 0.4 (0.0-1.0) mg/dL AST 19 (5-31) U/L ALT 14 (0-31) U/L Alkaline Phosphatase 125 H (39-117) U/L Troponin I High Sens < 2.7 D (<3.5-17.0) ng/L NT-Pro-B Natriuret Pep 264.1 (<300) pg/mL Total Protein 8.4 H (6.5-8.0) g/dL Albumin 4.8 (3.5-5.0) g/dL Beta-Hydroxybutyrate 0.07 (0.02-0.27) mmol/L Influenza Type A (PCR) NEGATIVE (Negative) Influenza Type B (PCR) NEGATIVE (Negative) RSV RNA Qual (PCR) NEGATIVE (Negative) SARS-CoV-2 RNA (RT-PCR) NEGATIVE (Negative) Independent Interpretation I performed an independent interpretation of an: EKG (80 beats per minute otherwise normal ECG without dysrhythmia, AV amaris blocks or ST-T changes to suspect underlying ACS, my independent interpretation) Radiology Impression Discussion of test interpretation with radiology: I have reviewed the radiologist's reading. Radiologist Impression: MPRESSION: Superior retraction and fullness of the right hilum. A mass in this region is not excluded. Further evaluation with chest CT with contrast is recommended. Discharge Plan Discharge Clinical Impression: MARY (acute kidney injury), Hypomagnesemia, Mass of right lung Patient Disposition: Home, Self-Care Additional Instructions: I provided you with a CAT scan results, please follow up with Dr. Garcia, Valium use 5 mg every 6-8 hours for anxiety, magnesium daily, Zofran as needed for nausea and vomiting, worsening symptoms concerns come back to the ER, please restart your Farxiga, your glucose was somewhat elevated to 239, but you did have also evidence of dehydration so make sure to stay well hydrated Prescriptions: New diazepam [Valium] 5 mg tablet 5 mg PO TID PRN (Reason: anxiety) 4 Days Qty: 12 0RF ondansetron 4 mg tablet,disintegrating 4 mg PO Q8H PRN (Reason: nausea and vomiting) Qty: 4 0RF magnesium 200 mg tablet 400 mg PO DAILY 7 Days Qty: 14 0RF No Action (DME) FreeStyle Lite Strips Strip See Rx Instructions .MEDSUPPLY Qty: 150 6RF Rx Instructions: 4 times a day metoprolol tartrate 25 mg tablet 25 mg PO BID Qty: 180 1RF furosemide 40 mg tablet 40 mg PO DAILY Qty: 90 1RF ondansetron 4 mg tablet,disintegrating 4 mg PO Q8H PRN (Reason: nausea and vomiting) Qty: 30 0RF clonidine HCl 0.1 mg tablet 0.1 mg PO TID levetiracetam 500 mg tablet 500 mg PO BID Qty: 180 1RF cholecalciferol (vitamin D3) [Vitamin D3] 25 mcg (1,000 unit) Tablet 25 mcg PO DAILY biotin 5,000 mcg Tablet, Sublingual 5,000 mcg SUBLINGUAL DAILY fluoxetine 40 mg capsule 80 mg PO DAILY@1500 hydroxyzine HCl 50 mg tablet 50 mg PO BID omeprazole 20 mg capsule,delayed release(DR/EC) 20 mg PO DAILY@0630 metformin 500 mg tablet 500 mg PO DAILY Qty: 30 0RF alprazolam 1 mg tablet 1 mg PO TID PRN (Reason: anxiety) oxycodone 5 mg Tablet 5 mg PO Q4H PRN (Reason: Pain, Severe (Pain Scale 7-10)) Qty: 12 0RF Rx Instructions: Partial Fill upon patient request. zolpidem 10 mg tablet 10 mg PO BEDTIME sumatriptan succinate 100 mg tablet 100 mg PO DAILY MRX1 PRN (Reason: migraine) Referrals: Alyson Garcia MD [Physician, Hematology & Oncology] - 1 week Clinical Impression: Mass of right lung Print Language: Turkish
--- OUTSIDE RECORDS SUMMARY | 2025-02-09 08:14 | XMS_ITS | Encounter Summary ---
Author Organization [facility] Address [address] [place] [address] [place] [phone] Phone Care Team Providers Care Field Map Technician Name Role Phone Unknown, Unknown Primary Care Provider Wagner Carter MD Unavailable [phone] Sharifa Gamble MD Primary Care Pro vider Encounter Details Date Type Department Care Team (Late st Contact Info) Description 08/27/2017 Procedure Pass [facility] [address] [place] [address] Social History Tobacco Use Types Packs/Day Years Used Date Smoking Tobacco: Never Assessed Comments Unknown Sex and Gender Information Value Date Recorded Sex Assigned at Female 06/25/2023 2:20 PM EDT Legal Sex Female 9:40 PM EDT Gender Identity Female 06/25/2023 2:20 PM EDT Sexual Orientation Straight 06/25/2023 2: 20 PM EDT documented as of this encounter Plan of Treatment Not on file documented as of this encounter Visit Diagnoses Not on filedocumented in this encounter Care Teams Field Map Technician Relationship Specialty Start Date End Date Unknown, Unknown, PCP - General 08/20/17 06/24/23 Sharifa Gamble MD [facility] [address] [address] PCP - General 06/25/23 Wagner Flood MD [address] [place] [address] [facility] [place] [id number] [email or web address] Primary Oncologist Medical Oncology 01/31/18 documented as of this encounter Additional Source Comments The information contained in this document represents components of the legal health record. It is not the complete legal health record.[facility]
--- OUTSIDE RECORDS SUMMARY | 2025-02-09 08:14 | XMS_ITS | Clinical Summary ---
Author Organization [facility] Address [address] [place] [address] Care Team Providers Care Nicking Machine Operator Name Role Phone Unavailable Primary Care Provider Unavailabl e Social History Tobacco Use Types Packs/Day Years Used Date Smoking Tobacco: Never Assessed Comments Unknown Sex and Gender Information Value Date Recorded Sex Assigned at Not on file Legal Sex Female 1:56 PM EST Gender Identity Not on file Sexual Orientation Not on file Plan of Treatment Health Maintenance Due Date Last Done Comments Breast Cancer Screening 1965 DTaP,Tdap,and Td Vaccines (1 - Tdap) 1984 Hepatitis B Vaccines (1 of 3 - 19+ 3-dose series) 1984 Cervical Cancer Screening: P ap Smear 1986 Pneumococcal Vaccine: 50+ Ye ars (1 of 1 - PCV) 05/15/2015 Zoster Vaccines (1 of 2) 05/15/2015 Depression Screening 03/11/2024 COVID-19 Vaccine ( - 2024-2 6 season) 2024 Influenza Vaccine (#1) 2024 RSV Immunization Adult Patie nts (1 - 1-dose 75+ series) 2040 HIB Vaccines Aged Out No longer eligi ble based on patient's age to complete this topic HPV Vaccines Aged Out No longer eligi ble based on patient's age to complete this topic Hepatitis A Vaccines Aged Out No long er eligible based on patient's age to complete this topic IPV Vaccines Aged Out No longer eligi ble based on patient's age to complete this topic MMR Vaccines Aged Out No longer eligi ble based on patient's age to complete this topic Meningococcal ACWY Vaccine Aged Out N o longer eligible based on patient's age to complete this topic Meningococcal B Vaccine Aged Out No l onger eligible based on patient's age to complete this topic RSV Immunization Patients Un bean 20 months Aged Out No longer eligible b ased on patient's age to complete this topic Varicella Vaccines Aged Out No longer eligible based on patient's age to complete this topic
--- OUTSIDE RECORDS SUMMARY | 2025-02-09 08:14 | XMS_ITS | Encounter Summary ---
Author Organization [facility] Address [address] [place] [address] [place] [phone] Phone Care Team Providers Care Licensed Therapist Name Role Phone Unknown, Unknown Primary Care Provider Wagner Carter MD Unavailable [phone] Sharifa Gamble MD Primary Care Pro vider Encounter Details Date Type Department Care Team (Late st Contact Info) Description 08/27/2017 Procedure Pass [facility] [address] [place] [address] Social History Tobacco Use Types Packs/Day Years [...] on filedocumented in this encounter Care Teams Licensed Therapist Relationship Specialty Start Date End Date Unknown, Unknown, PCP - General 08/20/17 06/24/23 Sharifa Gamble MD [facility] [address] [address] PCP - General 06/25/23 Wagner Flood MD [address] [place] [address] [facility] [place] [id number] [email or web address] Primary Oncologist Medical Oncology 01/31/18 documented as of this encounter Additional Source Comments The information contained in this document represents components of the legal health record. It is not the complete legal health record.[facility]
--- OUTSIDE RECORDS SUMMARY | 2025-02-09 08:14 | XMS_ITS | Clinical Summary ---
Author Organization [facility] Address [address] [facility] [address] [place] [phone] Phone Care Team Providers Care Legal Summer Intern Name Role Phone Wagner Flood MD Unavailable [phone] Sharifa Gamble MD Primary Care Pro vider Allergies Active Allergy Reactions Criticality Noted Date Comments Tramadol Seizures 07/30/2023 Medications senna (SENOKOT) 8.6 mg tablet Take 1 tablet by mouth daily. Active doxepin (SINEQUAN) 25 MG capsule Take 25 mg by mouth nightly. Active scopolamine (TRANSDERM-SCOP ) 1 [address] 1 patch onto the skin every third day. Active FLUoxetine (PROZAC) 40 MG capsule Take 40 mg by mouth daily. Active prazosin (MINIPRESS) 2 MG capsule Take 2 mg by mouth nightly. Active tiZANidine (ZANAFLEX) 2 MG tablet Take 2 mg by mouth every 6 (six) hours as needed. Active ALPRAZolam (XANAX) 2 MG tablet Take 2 mg by mouth nightly as needed for sleep. Active oxyCODONE-aceta minophen (PERCOCET) 5-325 mg per tablet Take 1 tablet by mouth every 4 (four) hours as needed for pain (specific location in comments). Active hydrOXYzine (ATARAX) 50 MG tablet Take 50 mg by mouth 3 (three) times a day as needed for itching. Active clonazePAM (KLONOPIN) 1 MG tablet Take 1 mg by mouth 2 (two) times a day as needed for anxiety. Active traMADol (ULTRAM) 50 mg tablet Take 50 mg by mouth every 6 (six) hours as needed for pain (specific location in comments). Active amitriptyline (ELAVIL) 25 MG tablet Take 25 mg by mouth nightly. Active magnesium-alumi num-simethicone -diphenhydramin y-jxgzijnzf-pcg tatin (ONCOLOGY MOUTHWASH) Mwsh oral/mucosal suspension Swish and spit 15 mL every 4 (four) hours as needed. Active fluconazole (DIFLUCAN) 100 MG tablet Take 100 mg by mouth daily. Active Family History Medical History Relation Comments Pancreatic cancer Father Relation Status Comments Father Social History Tobacco Use Types Packs/Day Years Used Date Smoking Tobacco: Every Day Cigarettes Education Answer Date Recorded Are you interested in more education? Not on alfreda e 07/06/2022 Are you concerned about learning? Not on file 07/06/2022 No 07/06/2022 No 07/06/2022 Digital Access Answer Date Recorded No 08/04/2022 No 08/04/2022 Reliable internet access at home? Not on file 08/04/2022 Device with a working camera? Not on file Comments Unknown Sex and Gender Information Value Date Recorded Sex Assigned at Female 06/25/2023 2:20 PM EDT Legal Sex Female 9:40 PM EDT Gender Identity Female 06/25/2023 2:20 PM EDT Sexual Orientation Straight 06/25/2023 2: 20 PM EDT Last Filed Vital Signs Vital Sign Reading Time Taken Comments Blood Pressure 218/93 07/30/2023 10:41 AM EDT Pulse 86 07/30/2023 10:41 AM EDT Temperature 36.8 C (98.3 F) 08/27/2017 2:29 PM EDT Respiratory Rate 16 08/27/2017 2:29 PM EDT Oxygen Saturation 98% 07/30/2023 10:41 AM EDT Inhaled Oxygen Concentration - - Weight 64.4 kg (142 lb) 08/27/2017 2:29 PM EDT Height 153.7 cm (5' 0.5 ) 08/27/2017 2:29 PM EDT Body Mass Index 27.28 08/27/2017 2:29 PM EDT Plan of Treatment Health Maintenance Due Date Last Done Comments LIPID PANEL 1965 DEPRESSION SCREENING 1977 SMOKING Hx and SMOKELESS TOBACCO SCREENING 1978 HEPATITIS C SCREENING 05/15/1983 HIV ONE-TIME SCREENING (18-65 YEARS) 05/15/1983 PAP SMEAR 1986 MAMMOGRAM 2005 COLOGUARD 2010 COLONOSCOPY 2010 COLORECTAL CANCER SCREENING 2010 FIT TEST 2010 FOBT 2010 SIGMOIDOSCOPY 2010 VIRTUAL COLONOSCOPY 2010 Adult Td,Tdap Booster 12/22/2018 12/22/2008 ZOSTER VACCINES (2 of 2) 05/16/2023 03/21/2023 INFLUENZA VACCINE (#1) 2024 , 03/17/2022, 01/06/2021, Additional history exists COVID-19 VACCINE ( season) 2024 03/21/2023, 03/17/2022, 03/16/2021, Additional history exists RSV VACCINE (1 - 1-dose 75+ series) 2040 HEPATITIS A VACCINES Aged Out 05/13/2012, 09/25/19 12 No longer eligible based on patient's age to complete this topic PNEUMOCOCCAL VACCINES (50+ years) Completed 03/21/2023, 07/14/2018 HIB VACCINES Aged Out No longer eligi ble based on patient's age to complete this topic MENINGOCOCCAL VACCINES (ACWY) Aged Out No longer eligible based on patient's age to complete this topic MENINGOCOCCAL VACCINES (B) Aged Out N o longer eligible based on patient's age to complete this topic Medical Devices Not on file Insurance MEDICARE PART A & B Member Subscriber Plan / Payer (Ef fective 2007-Present) Name:Desire Azar Member ID:[id number] Relation to Subscriber:Self Name:Desire Azar Subscriber ID:[id number] Payer ID:[id number] Group ID:Not on file Type:Medicare Address: [employer] [address] ONE CARE MEDICARE REPLACEMENT MEDICARE PART A & B CARE MEDICARE REPLACEMENT MEDICARE PART A & B Member Subscriber Plan / Payer ( fective 2007-Present) Name:Desire Azar Member ID:[id number] Relation to Subscriber:Self Name:Desire Azar Subscriber ID:[id number] Payer ID:[id number] Group ID:Not on file Type:Medicare Address: [facility] [employer] [facility] [address] ONE CARE MEDICARE REPLACEMENT DARYA FLANNERY [address] MEDICARE PART A & B CARE MEDICARE REPLACEMENT DARYA FLANNERY [address] MEDICARE PART A & B ONE CARE MEDICARE REPLACEMENT MEDICARE PART A & B Member Subscriber Plan / Payer (Ef fective 2007-Present) Name:ColonRosalindate Member ID:[id number] Relation to Subscriber:Self Name:Rosalinda Azarte Subscriber ID:[id number] Payer ID:[id number] Group ID:Not on file Type:Medicare Address: [employer] [address] ONE CARE MEDICARE REPLACEMENT DARYA FLANNERY [id number] [address] [place] [address] [place] [id number] Care Teams Legal Summer Intern Relationship Specialty Start Date End Date Sharifa Gamble MD [address] [address] PCP - General 06/25/23 Wagner Flood MD [address] [facility] Thoracic Oncology[address] [address] [email or web address] Primary Oncologist Medical Oncology 01/31/18 Additional Source Comments The information contained in this document represents components of the legal health record. It is not the complete legal health record.[facility]
--- OUTSIDE RECORDS SUMMARY | 2025-02-09 08:14 | XMS_ITS | Encounter Summary ---
Author Organization [facility] Address [address] [place] [address] [place] [phone] Phone Care Team Providers Care Cocoa Bean Cleaner Name Role Phone Unknown, Unknown Primary Care Provider Wagner Carter MD Unavailable [phone] Sharifa Gamble MD Primary Care Pro vider Encounter Details Date Type Department Care Team (Late st Contact Info) Description 08/27/2017 Procedure Pass [facility] [address] [place] [address] Social History Tobacco Use Types Packs/Day Years [...] on filedocumented in this encounter Care Teams Cocoa Bean Cleaner Relationship Specialty Start Date End Date Unknown, Unknown, PCP - General 08/20/17 06/24/23 Sharifa Gamble MD [facility] [address] [id number] PCP - General 06/25/23 Wagner Flood MD [address] [place] [address] [facility] [place] [id number] [email or web address] Primary Oncologist Medical Oncology 01/31/18 documented as of this encounter Additional Source Comments The information contained in this document represents components of the legal health record. It is not the complete legal health record.Located Within [facility]
--- OUTSIDE RECORDS SUMMARY | 2025-02-09 08:14 | XMS_ITS | Encounter Summary ---
Author Organization [facility] Address [address] [place] [address] [place] [phone] Phone Care Team Providers Care Mems Process Engineer Name Role Phone Unknown, Unknown Primary Care Provider Wagner Carter MD Unavailable [phone] Sharifa Gamble MD Primary Care Pro vider Encounter Details Date Type Department Care Team (Late st Contact Info) Description 08/27/2017 Procedure Pass [facility] [address] [place] [address] Social History Tobacco Use Types Packs/Day Years [...] on filedocumented in this encounter Care Teams Mems Process Engineer Relationship Specialty Start Date End Date Unknown, Unknown, PCP - General 08/20/17 06/24/23 Sharifa Gamble MD [facility] [address] [address] PCP - General 06/25/23 Wagner Flood MD [address] [place] [address] [facility] [place] [id number] [email or web address] Primary Oncologist Medical Oncology 01/31/18 documented as of this encounter Additional Source Comments The information contained in this document represents components of the legal health record. It is not the complete legal health record.[facility]
[2025-02-09 08:16] LABS: MANUAL DIFF FLAG NO
[2025-02-09 08:18] LABS: Hematocrit 39.1 % (37.0-47.0); Hemoglobin 13.4 g/dl (12.0-16.0); Imm Gran Abs Auto 0.10 X10*3/uL (0.00-0.03); Imm Gran Pct Auto 0.6 % (0.0-0.4); Lymphocytes Absolute Auto 2.7 X10*3/uL (1.2-4.9); Mean Corpuscular HGB Conc 34.3 g/dl (31.0-35.0); Mean Corpuscular Hemoglobin 29.1 pg (27.0-33.0); Mean Corpuscular Volume 84.8 fL (80.0-98.0); NRBC Abs Auto 0.000 X10*3/uL (0.0-0.012); NRBC Pct Auto 0.0 /100WBC (0.0-0.2); Platelet Count 352 X10*3/uL (160-400); Red Blood Count 4.61 X10*6/uL (4.20-5.50); White Blood Count 17.0 X10*3/uL (4.8-10.8)
[2025-02-09 08:49] LABS: NT Pro B Type Natriuretic Pept 264.1 pg/mL (<300)
[2025-02-09 08:52] LABS: Troponin-I High Sensitivity < 2.7 ng/L (<3.5-17.0)
[2025-02-09 08:56] LABS: Alanine Aminotransferase 14 U/L (0-31); Albumin Level 4.8 g/dL (3.5-5.0); Alkaline Phosphatase 125 U/L (39-117); Anion Gap 18 (12-20); Aspartate Amino Transferase 19 U/L (5-31); Blood Urea Nitrogen 28 mg/dL (9-16); Calcium 9.8 mg/dL (8.4-10.2); Carbon Dioxide 29 mmol/L (22-29); Chloride 92 mmol/L (96-108); Creatinine Clr Calc Pharmacy 32.5; Estimated Glomerular Filt Rate 33; Magnesium 1.3 mg/dL (1.6-2.6); Potassium 3.8 mmol/L (3.3-5.1); Sodium 135 mmol/L (135-145); Total Protein 8.4 g/dL (6.5-8.0)
[2025-02-09 09:21] LABS: Resp Syncy Virus RNA Qual PCR NEGATIVE (Negative); SARS COV2 PCR INHOUSE NEGATIVE (Negative)
[2025-02-09 10:59] VITALS: BP 117/78; PULSE 66; RESP 16; TEMP 36.9; O2SAT 96
[2025-02-09] MEDS: Magnesium Sulfate/H2O 2 GM/50 ML PIGGYBACK IV (11:08)
[2025-02-09] MEDS: diazePAM 10 MG/2 ML CARTRIDGE 5 MG IVPUSH (11:43)
[2025-02-09] MEDS: iohexoL 350 MG/ML 100 ML INFUS..BTL IV (11:50)
[2025-02-09 13:53] VITALS: BP 117/78; PULSE 66; RESP 16; TEMP 36.9; O2SAT 96
== END 2025-02-09 13:57 | disposition home or self-care (01) ==
PROVIDERS: Physician Assistant Medical; Emergency Provider Emergency Medicine; PCP Internal Medicine
DX: N17.9 Acute kidney failure, unspecified (principal); E83.42 Hypomagnesemia; R91.8 Other nonspecific abnormal finding of lung field; R07.9 Chest pain, unspecified; R94.31 Abnormal electrocardiogram [ECG] [EKG]; Z03.818 Encounter for observation for suspected exposure to other biological agents ruled out
CPT/HCPCS: 71046; 71275; 80053; 82010; 83735; 83880; 84484; 85025; 87637; 93005; 96365; 96366; 96375; 99285; J3360; J3475; Q9967

== ENCOUNTER → 2025-02-09 07:38 | Outpatient (BNV) | payer OTHER, SELFPAY | PROVIDERS: Emergency Provider Emergency Medicine; PCP Internal Medicine; Visit Provider Internal Medicine | DX: I51.7 Cardiomegaly (principal) | CPT/HCPCS: 93010 ==

== ENCOUNTER → 2025-02-09 07:58 | Outpatient (BNV) | payer OTHER, SELFPAY | PROVIDERS: PCP Internal Medicine; Visit Provider Radiology Diagnostic Radiology | DX: R07.9 Chest pain, unspecified (principal) | CPT/HCPCS: 71046; 71275 ==

== ENCOUNTER 2025-02-24 13:33 | Outpatient (AMB) | payer OTHER, SELFPAY ==
--- NOTE | 2025-02-24 13:49 | MHC.OFFVIS ---
Vital Signs 02/24/25 13:51 Height 5 ft 3.07 in Weight 137 lb BMI 24.2 BP 130/77 Blood Pressure Location Lt brachial Position Sitting Pulse 72 Pulse Source Pulse Oximeter Pulse Oximetry (%) 99 Oxygen Delivery Method Room Air Intake Visit Reasons: QUILES Allergies acetaminophen (Tylenol) Adverse Reaction (Unknown, Verified 02/24/25 13:55) Abdominal Pain ibuprofen Adverse Reaction (Unknown, Verified 02/24/25 13:55) Abdominal Pain HPI HPI QUILES: Details: 59-year-old lady, recent 30+ pack-year smoker, with underlying history of lung cancer status post chemotherapy, seen once in November of 2022, now referred for consideration for bronchoscopy for biopsy of newly noted right paratracheal mass. COUNTS INCLUDE 234 BEDS AT THE [facility] Medical History Cardiomyopathy Substance abuse Pulmonary nodule Diabetes type 2, uncontrolled Colitis Opioid use disorder Arthritis Fibromyalgia History of lung cancer Multinodular goiter Adrenal insufficiency due to cancer therapy Newly diagnosed diabetes Subclinical hyperthyroidism Pancreatitis (~02/2018) Radiation-induced esophagitis Hypothyroidism Depression Opioid abuse Asthma COPD (chronic obstructive pulmonary disease) Aftercare following left shoulder joint replacement surgery Non-small cell carcinoma of left lung, stage 4 Surgical History History of esophagogastroduodenoscopy (EGD) (~09/04/19) History of cholecystectomy (~12/02/08) History of endometrial ablation (~07/25/06) History of esophageal dilatation (~02/24/18) Hx of shoulder surgery (~2014) Hx of blepharoplasty (~2018) History of Family History Father Pancreatic cancer Mother Diabetes Skin cancer Rheumatoid arthritis Brother Diabetes Sister Diabetes Other History of thyroid disorder Social History Household Members: Spouse Housing: Unknown / Unable to assess Do you presently have visiting nurse or other home services: Yes Alcohol intake: current Alcohol intake frequency: does not drink Alcohol type: wine Comment: Gait and balance are steady Patient Tobacco Use Status: Tobacco use Unknown Tobacco use type: Cigarette Years Smoked: 30 Second Hand Smoke Exposure: No Advance Directives Date on File: 05/12/20 service: No Current occupational status: unemployed and disabled Review of Systems Card Details: Right-sided chest pain Denies dyspnea and Denies dyspnea on exertion Resp Denies cough, Denies excessive phlegm production, Denies dyspnea, Denies dyspnea on exertion and Denies wheezing Aller/Immun Denies wheezing Physical Exam Vital Signs: Last Vital Signs Pulse 72 02/24/25 13:51 BP 130/77 02/24/25 13:51 Pulse Ox 99 02/24/25 13:51 Oxygen Delivery Method Room Air 02/24/25 13:51 BMI result Body Mass Index 24.2 Const General: no acute distress and alert Nutritional Appearance: not obese Orientation/consciousness: Other orientation findings ( oriented) HEENT Head: Yes atraumatic Eyes General: appearance normal, both eyes and all related structures Sclerae: sclerae normal EOM: EOMs intact bilaterally Neck Neck: Yes supple Lymphatic: no lymphadenopathy noted Resp Effort & Inspection: normal respiratory effort and no use of accessory muscles Auscultation: clear to auscultation bilaterally Cardio Rate: regular rate Rhythm: regular rhythm Heart sounds: no gallops, no murmurs and no rubs Skin General skin exam: other ( warm) Extrem General: No clubbing, No cyanosis and No edema Assessment & Plan Assessment & Plan (1) Lung mass: Code(s): R91.8 - Other nonspecific abnormal finding of lung field Category: Medical Plan: Right paratracheal mass, new/worsening since prior imaging. Will await results of PET scan to plan for appropriate biopsy site. Orders: Orders PET CT fusion skull to thigh Today R91.8 - Other nonspecific abnormal finding of lung field Coding Level of Care Code Est Pt Level 3 (70517) Diagnoses Lung mass R91.8
[2025-02-24 13:51] VITALS: BP 130/77; PULSE 72; O2SAT 99; BMI 24.2
--- OUTSIDE RECORDS SUMMARY | 2025-02-24 18:06 | XMS_ITS | Data Portability ---
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 with the assessment and plan as documented by the proof sorter. I provided real-time medical direction for this encounter and was immediatel y available to provide additional phone-base d assistance as needed. We discussed the diagnostic uncertaint y of home visits and associated risks. We discussed the need to seek care urgently/e mergently in the setting of any new or worsening symptoms. [id number] Tamika Romero MD [facility] - [address] [phone] 04/18/2023 20:46:54 04/18/2023 21:44:02 Toothache [id number] K08.89 57 year old female with history of dental implants, being evaluated for ongoing pain related to presumed failed implants. Patient reports previously receiving toradol and benadryl that had been helpful in the past, has received this combinatio n multiple times, most recent time was last week. Patient awaiting definitive FU plans for addressing the underlying issue. She is able to tolerate PO. Exam notable for normal vital signs, and loosened dental implants without surroundin g erythema or purulence. Presentati on consistent with ongoing dental pain secondary to presumed failing dental implants, IM toradol administer ed today along with benadryl per patient request. FU prn. I have reviewed and agree with the assessment and plan as documented by the proof sorter. I provided real-time medical direction for this encounter and was immediatel y available to provide additional phone-base d assistance as needed. We discussed the diagnostic uncertaint y of home visits and associated risks. We discussed the need to seek care urgently/e mergently in the setting of any new or worsening symptoms. [id number] Lesvia Khan MD Main - inst[facility] [address] [place] [phone] 06/04/2023 16:02:36 06/04/2023 19:17:39 Toothache [id number] K08.89 [id number] Neymar Khoury MD Main - [facility] [address] [place] [phone] 06/29/2023 11:28:43 06/29/2023 13:27:01 Gingivitis [id number] K05.10 Tooth pain acute on chronic. No s/s of abscess. Has upcoming dental appt. Has responded well to Toradol in the past. Discussed red flag signs for which to seek higher level of care. [id number] DAKOTA GREEN MD Main - [facility] [address] [place] [phone] 11/21/2023 16:43:57 11/21/2023 21:21:56 Nausea, vomiting and diarrhea [id number] R11.2 Evaluation in the field was performed by my proof sorter colleague, as noted above, I provided real-time direction and supervisio n for this visit. The evaluation revealed a 58-year-ol d female with a history of bipolar disorder, arthritis, depression , fibromyalg ia, diabetes (diagnosed during treatment for lung cancer but not on any oral hypoglycem ics or insulin), nonepilept ic seizures, hypothyroi dism, and migraines. She presents with complaints of nausea, vomiting, and diarrhea for the past 3-4 days. She has been to the ED with no acute findings and has not been able to tolerate oral intake. She has been drinking elena august (10 cans in the last 1-2 days but reports that could not keep them down ). She denies fever or sick contacts. The patient believes the symptoms are related to a barium swallow she had 3 weeks ago, as she has not been the same since. Not on anticoagul ation. No hx of GI bleed . Vital Signs:Bloo d Pressure: 82/50 (114/62 during last visit on 06/29/23), HR: 82 bpm, Respirator y Rate: 14, O2 Saturation : 98% on room air. Temperatur e: 98.1 F BMP Results:So dium: 131, Potassium: 3.5, Chloride: 87, Bicarbonat e: 32, BUN: 11, Creatinine : 0.9, Glucose: 525 Allergies: NSAIDs- cause stomach upset , tylenolImp ression:Na usea, vomiting, diarrhea , hyperglyce elizabeth Plan:-LR 1 L was administer ed.-Ketoro lac 15 mg IV x1 given-Rosi dryl 25 mg IV x1 was given.-Zof ran 4 mg IV x1 was given.-Pot assium chloride 40 mEq PO x1 was administer ed.-Due to hyperglyce elizabeth and the fact that she is not currently on any antihyperg lycemic medication s (oral or insulin), insulin will be needed to bring her glucose down, followed by the initiation of an oral hypoglycem ic agent. She is not a candidate for Metformin initiation today by us due to ongoing nausea and vomiting, as it can cause lactic acidosis if dehydratio n continues (even though her renal function appears stable).-T he patient agrees to go to the ED for insulin and the possible initiation of a hypoglycem ic regimen. Primary care, consider__ _ Dispositio n:We discussed the situation and I recommende d referral to the emergency department . She was transporte d to [facility] via 911. Expect called [id number] Lesvia Khan MD Main - [facility] [address] [place] [phone] 11/28/2023 20:29:20 06/25/2024 20:14:55 Cat bite [id number] W55.01XA [id number] Cynthia Barr MD Main - inst[facility] [address] [place] [phone] 01/03/2024 13:43:13 01/06/2024 21:17:12 Pain in right lower limb [id number] M79.604 Evaluation in the field was performed by my proof sorter colleague, as noted above, I provided real-time direction and supervisio n for this visit. 58yo F p/w RLE pain and spasms. Happened while she was in [place] and toradol helped. Endorses mechanical fall onto knee a few days ago with mild bruising, can walk and bear weight. No neuro deficits or weakness. On proof sorter eval VS wnl, exam notable for normal RLE except mild patellar bruise. Suspect MSK pain, while pt has allergies to motrin and naproxen requests toradol and reports she has tolerated before, no hx GI, use of AC, or CKD. PCP: consider further evaluation if symptoms fail to improve We discussed the diagnostic uncertaint y of home visits and the risk associated with this. In this case, the patient and I felt this to be an acceptable and reasonable amount of risk given the benefit of avoiding an ED visit. We discussed the need to seek care urgently/e mergently in the setting of any new or worsening serious symptoms, shortness of breath, cough, chest pain, fever. Health Concerns Section Related Observation LastModified by Organization Detai ls LastModified Time None Recorded Concern Status LastModified by Organization Details LastModified Time None Recorded Advance Directives Directive None Recorded Payers Insurance Date Sequence Insurance Name Policy Number Policy Durant Covered Member ID Durant Member ID Guarantor Name 01/29/2024 1 [facility] - DOS PRIOR TO 2022 - DUAL ELIGIBLE (MEDICARE REPLACEMENT/ADV ANTAGE - HMO) Desire Colon [id number] Desire Colon 06/25/2024 1 [facility] - DOS ON OR AFTER 2022 - DUAL ELIGIBLE - FPC OPTIONS AND ONE CARE (MEDICARE REPLACEMENT/ADV ANTAGE - HMO) Desire Colon [id number] Desire Colon Notes Date Note Type Note Provider Name and Address Organization Details Recorded Time 2023 text/h tml HPI: Desire is a 57 year old female with bipolar disorder, arthritis, depression, fibromyalgia, diabetes diagnosis during treatment for lung cancer, nonepileptic seizures, hypothyroidism, and migraine. She has an apt with her PCP tomorrow to discuss tooth pain. She is in 10/10 mouth pain. Requesting insted for pain management to get her through to her apt. .......................................... .......................................... .......................................... ............... CRC Nurse Triage Notes (Jocelynn Waller): Comments: Reviewed HPI, no further info needed. Akbar BIRD Allergy to Tylenol noted Lesvia Khan MD [address] [facility],[address], [place], [phone] , [employer] 16:06:45 2023 text/h tml ROS as noted in the HPI HPI: 58 yo woman with hx of mouth pain, loss of teeth, gingivitis, fibromyalgia calls in to PCP reported that she is in a severe pain in her mouth face and teeth - Member was scheduled for [facility] 07/08 however she is having court on that day member cancelled appointment and she is waiting for new appointment. Requesting pain management until she can see dentist. .......................................... .......................................... .......................................... ............... CRC Nurse Triage Notes (Fabiola Angulo): Comments: HPI reviewed. Member is aware visit will be 06/28, safe and stable to wait .......................................... .......................................... .......................................... ............... Staff Certified Nurse Midwife Note From Jerel Matt: Dispatched to above address for oral pain. On arrival patient 58 y/o F, found lying in bed, AOX4, airway patent, speaking in full sentences, good color, in no apparent distress. Patient states she has had significant ongoing oral/ dental problems, severe pain and losing many teeth, has a follow up for further evaluation with [facility], unable to make appointment due to court date but is pending reschedule. Patients vital signs checked. Secondary assessment, pupils PERRL, bruising around L eye, swelling around face, airway patent, gums swollen, several lose teeth, no JVD, trachea midline, equal chest rise and fall, lungs clear all guallpa, abdomen soft non tender, no signs of trauma, good radial pulse, skin pink warm and dry. Patient denies any fever, chills, nausea, vomiting, diarrhea. Patient states she has general joint pain since seizure causing a facial fracture last month, reports 10/10 oral pain, is able to eat and drink but is painful, pain making sleep difficult. [facility] contacted, spoke with Dr. Khoury, advised of patient complaints and exam findings. [facility] to have [facility] administer 30mg Toradol and 50mg Benadryl IM for pain management, follow up with PCP for ongoing pain management. Medications administered IM R and L deltoid. Patient reports relief of pain stating she wants some rest and will follow up with PCP. Patient advised of red flags. Patient has no additional questions of concerns at this time. SC8 clear. EOR. .......................................... .......................................... .......................................... ............... Disposition: David Neymar Khoruy MD [address] [facility],[address], [place], [phone], [employer] 12:42:05 2023 text/h tml ROS as noted in the HPI HPI: Desire is a 58 year old female with bipolar disorder, arthritis, depression, fibromyalgia, diabetes diagnosis during treatment for lung cancer, nonepileptic seizures, hypothyroidism, and migraine. She calls into her PCP today complaining of 2 and 1/2 days of N/V/D. Denies fever or sick contacts. She is stating this is from a barium swallow she had 3 weeks ago and she has no been the same since. Sending insted for pain relief for abdominal cramps, antiemetics and IVF if indicated. .......................................... .......................................... .......................................... ............... CRC Nurse Triage Notes (Julisa Cerda): Chief Complaints: Abdominal Pain, Nausea/Vomiting PMH: Diabetes, COPD/Asthma, Severe Persistent Mental Illness (SPMI) Other Allergies: tylenolnaproxen Comments: CRC RN did not require any additional information to process this visit. Staff Certified Nurse Midwife Organization Information for [employer] persaud [employer] Legal Name: [employer]. Address: [address] [place] [address], Straddle Bug: Kenroy Mcknight MD CLIA No.: [id number] Staff Certified Nurse Midwife POC Test Results from Mirza Hatfield [facility] iSTAT Chem8+ (16:47:18) Na: 131 mEq/L K: 3.5 mEq/L Cl: 87 mEq/L iCa: 1.15 mmol/L TCO2: 32 mmol/L Glu: 525 mg/dL BUN: 11 mg/dL Crea: 0.9 mg/dL Hct: 40 % Hb: 13.6 g/dL A Attachments uploaded as part of this test result can be found under Documents section. .......................................... .......................................... .......................................... ............... Staff Certified Nurse Midwife Note From Mirza Hatfield: barium swallow 3-4 weeks ago and since then has had extreme cramping. Pt has been since at the ER with no findings. Pt C/O N/V/D cramping and unable to keep anything down. Pt has attempted to call the office with no response/call back. This seems to be a chronic issue for the pt (per pt) as she reports we have been out several times and she is requesting IV fluid, Toradol, and IV Benadryl, as that is the only thing that works. She adds that she has not eaten or drinking in several day, anything she puts down comes back up. Pt reports the last three days s/s have worsened and hasn't felt well at all along with severe N/V/D. Pt denies SOB or CP.Pt does have IBS, but believes it is Crohn's instead. MedsfluoxetinesenexclonidineKeppraAmbien dicyclomineAllergies to Motrin and Tylenol - sits in her stomach and doesn't dissolve .Pt reports being unable to keep anything down, but later in the visit admits to drinking 10 12oz cans of Elena august. And reports not eating in three days, but then reports does eat from time to time. iStat obtained.18 g IV established in R AC - labs drawn.20 g IV established in L AC for more access. MD Consult:Due to hyperglycemia and no way to treat it at home, the pt needs to go to the ER for treatment. Upon her d/c she should be D/C with insulin until POC is stabilized and then different course may be given - MD recommendations. In the meantimeAdminister:40mg k PO powder - given, and pt was able to keep down.25 Benadryl - given IV15 Toradol - Given IV4mg Zofran - Given IV1 LR - Given, upon transferring care to ALS unit ~600ml of LR was administered. Pt transported to [facility] via [facility] ambulance. .......................................... .......................................... .......................................... ............... Disposition: Fulfilled DAKOTA GREEN MD [address] [place] [address],[address], [place], [phone], [place] [employer] 18:53:28 2023 text/h tml CRC Nurse Triage Notes (Fabiola Angulo): Reason For Request: wounds from cat attack Chief Complaints: Wound Care, Injury PMH: Diabetes, COPD/Asthma, Severe Persistent Mental Illness (SPMI), Cancer, Other Allergies: Ibuprofen, Acetaminophen Comments: PMH: Migraines Patient reports being attacked by her cat 15-20 min ago. Multiple bite lagunas to bilateral lower extremities. Cat is not UTD on vaccines. Increased redness and swelling to areas. Patient reports bleeding. Some puncture lagunas are deep. Applying peroxide. .......................................... .......................................... .......................................... ............... Staff Certified Nurse Midwife Note From Ruddy Quigley: Pt co cat scratches she received from her bengal cat, cat is a house cat. Pt sts scratches are painful , no bleeding. Pt received scratches 1 hour prior to arrival. Pt already on amoxicillin for another bacteria infection. Pt denies , sob , cp, dizziness, NVD. Pt using peroxide on wound. Pt requesting toradol. Scratches are superficial. Photos uploaded. Baseline vitals assessed , afebrile. C contacted and 15mg toradol IM , pt advised to use neosporin and keep wounds clean and dry. Pt advised to monitor for infection. Pt education on signs indicating the ER. Pt advised to follow up with pcp. Staff Certified Nurse Midwife Allergies: Ibuprofen, Acetaminophen .......................................... .......................................... .......................................... ............... Disposition: David Khan MD [address] [facility],[address], [place], [address] [facility] JOSUÉ MENG 21:35:20 2023 text/h tml HPI: 58 y/o femalePatient called reporting worsening pain in right leg. PCP is awaiting MRI approval/scheduling and started patient on B uprenorphine HCl-Naloxone HCl for pain last week. Patient [facility] but left due to wait time. .......................................... .......................................... .......................................... ............... CRC Nurse Triage Notes (Kyaw Tinoco): Chief Complaints: Pain PMH: Diabetes, COPD/Asthma, Severe Persistent Mental Illness (SPMI), Cancer Allergies: Ibuprofen, Acetaminophen Comments: HPI reviewed by this RN, no further information needed to process visit -Brandon Tinoco RN .......................................... .......................................... .......................................... ............... Staff Certified Nurse Midwife Note From Ruddy Quigley: Pt co right leg pain/spasms. Pt sts was given toradol when she was in the hospital and it gave her relief. Pt sts she had a fall a few days ago and has a bruise on her knee. Pt requesting toradol today. Pt denies trauma or injury, kidney issues, stomach bleeds or blood thinners. Pt denies cp, dizziness, SOB, fever, NVD or abdominal pain. Baseline vitals assessed, WNL, Afebrile, Full ROM of right and left leg. Bruise visible on right Knee in healing stages. Photo uploaded into berta. [facility] contacted and 30mg toradol given IM with 25g needle in left deltoid, right pt, med, date and route. Pt advised to follow up with PCP. Pt advised she can use ice or heat for pain relief. Pt Education on signs indicating the ER. Consent on file. Pt sts allergy to Ibuprofen and acetaminophen, however tolerates toradol. .......................................... .......................................... .......................................... ............... Disposition: Fulfilled Cynthia Barr MD [address] [place] [address],[address], [place], [phone] [facility] [employer] 4 14:07:34 OBGyn Episode No OBEpisode recorded.
--- OUTSIDE RECORDS SUMMARY | 2025-02-24 18:06 | XMS_ITS | Encounter Summary ---
Author Organization [facility] Address [address] [place] [address] [place] [phone] Phone Care Team Providers Care Video Game Designer Name Role Phone Unknown, Unknown Primary Care Provider Wagner Carter MD Unavailable [phone] Sharifa Gamble MD Primary Care Pro vider Encounter Details Date Type Department Care Team (Late st Contact Info) Description 08/27/2017 Procedure Pass [facility] [address] [place] [address] Social History Tobacco Use Types Packs/Day Years [...] on filedocumented in this encounter Care Teams Video Game Designer Relationship Specialty Start Date End Date Unknown, Unknown, PCP - General 08/20/17 06/24/23 Sharifa Gamble MD [facility] [address] [phone] PCP - General 06/25/23 Wagner Flood MD [address] [place] [address] [facility] [place] [id number] [email or web address] Primary Oncologist Medical Oncology 01/31/18 documented as of this encounter Additional Source Comments The information contained in this document represents components of the legal health record. It is not the complete legal health record.[facility]
--- OUTSIDE RECORDS SUMMARY | 2025-02-24 18:06 | XMS_ITS | Clinical Summary ---
Author Organization [facility] Address [address] [place] [address] Care Team Providers Care Exceptional Children Teacher Name Role Phone Unavailable Primary Care Provider [...]
--- OUTSIDE RECORDS SUMMARY | 2025-02-24 18:06 | XMS_ITS | Encounter Summary ---
Author Organization [facility] Address [address] [place] [address] [place] [phone] Phone Care Team Providers Care Mixer Foam Rubber Name Role Phone Unknown, Unknown Primary Care Provider Wagner Carter MD Unavailable [phone] Sharifa Gamble MD Primary Care Pro vider Encounter Details Date Type Department Care Team (Late st Contact Info) Description 08/27/2017 Procedure Pass [facility] [address] [place] [address] Social History Tobacco Use Types Packs/Day Years [...] on filedocumented in this encounter Care Teams Mixer Foam Rubber Relationship Specialty Start Date End Date Unknown, Unknown, PCP - General 08/20/17 06/24/23 Sharifa Gamble MD [facility] [address] [phone] PCP - General 06/25/23 Wagner Flood MD [address] [place] [address] [facility] [place] [id number] [email or web address] Primary Oncologist Medical Oncology 01/31/18 documented as of this encounter Additional Source Comments The information contained in this document represents components of the legal health record. It is not the complete legal health record.[facility]
--- OUTSIDE RECORDS SUMMARY | 2025-02-24 18:06 | XMS_ITS | Patient Health Record ---
Author Organization [facility] Address [address] [place] [address] Care Team Providers Care Chief Procurement Officer Name Role Phone LAILA AHUJA Primary Care Provider Wood Russo Unavailable [phone] Allergies No Known Allergies Reason For Referral No Information Medications Medication SIG (Take, Route, Frequency, Duration) Notes Start Date End Date Status Omeprazole 20 MG Capsule Delayed Release 1 Orally Once a day every morning; Duration: 90 days Active Ambien 10 MG Tablet 1 tablet at bedtime as needed Orally Once a day Active Linzess 145 MCG Capsule [address] 30 minutes before the first meal of the day on an empty stomach Orally Once a day; Duration: 30 day(s) Active Metformin & Diet Manage Prod Active FLUoxetine HCl 40 MG Capsule Oral; Duration: 90 Not-Takin g/PRN Ondansetron HCl Not- Taking/PRN Linzess 145 MCG Capsule [address] 30 minutes before the first meal of the day on an empty stomach Orally Once a day; Duration: 30 day(s) 08/02/2023 Active cloNIDine HCl Active ALPRAZolam 1 MG Tablet 1 tablet Orally t hree times a day Active Keppra XR 500 MG Tablet Extended Release 24 Hour 2 tablets Orally Once a day; Duration: 30 day(s) Active Fluoxetine Active Trulance 3 MG Tablet Oral; Duration: 30 Not-Taking/PRN hydrOXYzine HCl 50 MG Tablet 1 tablet as needed Orally Once a day; Duration: 30 day(s) Active Sucralfate 1 GM Tablet Dissolve 1 tablet in 20-30 cc of warm water Orally QID 10/31/2017 Not-Taking/PRN Dicyclomine HCl 10 MG Capsule TAKE 1 TO 2 CAPSULES BY MOUTH EVERY 6 HOURS NEEDED ABDOMINAL CRAMPS/DISCOMFORT 90; Duration: 90 Not-Taking/PRN Immunizations Vaccine Route Administration Date Status Comme nts Influenza Unknown 01/16/2018 Administered Influenza Unknown 02/08/2018 Administered Influenza Unknown 12/10/2018 Administered Influenza Unknown 12/09/2019 Administered Social History Tobacco Use: Social History Observation Description Date Details (start date - stop date) Current Smoker NA - NA Social History Drugs/Alcohol: Social Info Question Answer Notes Alcohol Screen Did you have a drink containing alcohol in the past year? No Points 0 Interpretation Negative Tobacco Use: Social Info Question Answer Notes Tobacco Use/Smoking Patient is a current smoker How often do you smoke cigarettes? some days, but not every day How many cigarettes a day do you smoke? 5 or less How soon after you wake up do you smoke your first cigarette? within 5 minutes Are you interested in quitting? 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 09/2019; no sig alcohol Problems Problem Type SNOMED Code ICD Code Onset Dates Problem Status W/U Status Risk Notes Problem Epigastric pain (78401738) Epigastric pain (R10.13) Active confirmed Problem Abdominal bloating (360261966) Abdominal bloating (R14.0) Active confirmed Problem Diarrhea (36801537) Diarrhea (R19.7) Active confirmed Problem Esophageal stricture (01561805) Esophageal stricture (K22.2) Active confirmed Problem Colitis (74565001) Colitis (K52.9) Active confirmed Problem Oropharyngeal dysphagia (24099204) Oropharyngeal dysphagia (R13.12) Active confirmed Problem Computed tomography result abnormal (046028863) Abnormal CT scan, colon (R93.3) Active confirmed Problem Constipation (12243049) Constipation, unspecified constipation type (K59.00) Active confirmed Problem Stricture of esophagus (78850591) 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) Active confirmed Problem Dysphagia (56752065) Pharyngoesophageal dysphagia (R13.14) Active confirmed Problem Stricture of esophagus (71262048) History of esophageal stricture (Z87.19) Active confirmed Problem Ulcerative colitis (25103336) Ulcerative colitis (K51.90) Active confirmed Problem Diarrhea (74362854) Diarrhea, unspecified type (R19.7) Active confirmed Problem Esophageal dysphagia (80057626) Esophageal dysphagia (R13.10) Active confirmed Problem Benign esophageal stricture (398231137) Benign esophageal stricture (K22.2) Active confirmed Problem Abnormal compute d tomography of esophagus (R93.3) Active confirmed Problem Flatulence, eructation and gas pain (666490572) Gaseous abdominal distention (R14.0) Active confirmed Problem Retained food in stomach (K31.89) Active confirmed Problem Esophageal dysphagia (02112040) Esophageal dysphagia (R13.19) Active confirmed Plan Of Treatment Pending Test Test Name Order Date LIVER PROFILE 03/17/2020 AMYLASE 03/17/2020 LIPASE 03/17/2020 CRP 03/17/2020 CRP 11/16/2020 CBC w DIFF 11/16/2020 CBC w DIFF 03/17/2020 SED RATE (ESR) 03/17/2020 SED RATE (ESR) 11/16/2020 STOOL WBC 03/17/2020 GIARDIA AG, STOOL EIA 03/17/2020 GIARDIA AG, STOOL EIA 06/16/2019 OVA & PARASITES (O&P) 06/16/2019 OVA & PARASITES (O&P) 03/17/2020 ROUTINE CULTURE 06/16/2019 CULTURE, STOOL 03/17/2020 CULTURE, STOOL 11/16/2020 XR BARIUM SWALLOW-ESOPHAGUS 06/24/2020 XR BARIUM SWALLOW-ESOPHAGUS 08/27/2022 XR BARIUM SWALLOW-ESOPHAGUS 05/20/2018 XR BARIUM SWALLOW-ESOPHAGUS 08/02/2023 XR BARIUM SWALLOW-ESOPHAGUS 09/02/2018 XR BARIUM SWALLOW, MODIFIED VIDEO 2019 XR GI SERIES 06/24/2020 STOOL WBC 11/16/2020 STOOL WBC 06/16/2019 C DIFFICILE RFLX PCR 03/17/2020 C DIFFICILE RFLX PCR 06/16/2019 C DIFFICILE RFLX PCR 11/16/2020 Future Test Test Name Order Date UPPER GI ENDOSCOPY 03/07/2017 UPPER GI ENDOSCOPY BALLOOON DILATION OF ESOPH 12/17/2017 UPPER GI ENDOSCOPY BALLOOON DILATION OF ESOPH 05/20/2018 COLONOSCOPY 11/20/2018 UPPER GI ENDOSCOPY BALLOOON DILATION OF ESOPH 05/21/2019 Insurance Providers Payer Name Payer Address Payer Phone Subscriber Number Group Number Insured Name Patient Relationship to Insured Coverage Start Date Coverage End Date 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 Ortiz and Dr. Garcia---received XRT and chemo with Dr. Garcia--still receiving chemo Q [address] Garcia as of the 12/2019 OV Multiple upper endoscopies w ith balloon dilations beginning in 02/2017 for a proximal esophageal stricture from XRT--EGD on 02/24/18 with a doilation up to a 16.5mm balloon; EGD in 06/2018 which showed some scarring in the proximal esophagus, but no definitive residual stricture--dilation was not performed; upper endoscopy in August 2019 revealed no residual proximal esophageal stricture nor inflammation-there was some mild amount of gastric retention, but no evidence of any obstruction. Urinary incontinence Seizures Diarrhea with colitis seen on CT in 10/28 19 Colonoscopy in 11/2018 with a mild diffuse colitis confirmed on biopsies--no infection, no granulomas, hyperplastic/inflammatory polyps--no adenomas; neg stool specimens EGD 08/2019-no residual stric ture nor esophagitis--there was some mild gastric retention but a Nuc Med Gastric emptying was normal Modified Barium swallow with the Speech/Swalloing team in 10/2019 showed mainly oropharyngeal dysphagia issues Normal nuclear medicine gastric emptying study in 10/2019 NIDDM Upper endoscopy in July was negative for any sign of an esophageal stricture. The proximal esophagus had some scarring and fibrotic changes consistent with the previous radiation treatments and radiation-induced stricture, but there was no evidence of any stricture that needed dilation at that time Surgical History Surgery Date(Month/Year) Cholecystectomy- Dr. Byers Left shoulder - Dr. Ayala Tonsillectomy Dental implant surgery 05/2019
--- OUTSIDE RECORDS SUMMARY | 2025-02-24 18:06 | XMS_ITS | Encounter Summary ---
Author Organization [facility] Address [address] [place] [address] [place] [address] Phone Care Team Providers Care American Sign Language Teacher Name Role Phone Unknown, Unknown Primary Care Provider Wagner Carter MD Unavailable [phone] Sharifa Gamble MD Primary Care Pro vider Encounter Details Date Type Department Care Team (Late st Contact Info) Description 08/27/2017 Procedure Pass [facility] [address] [place] [address] Social History Tobacco Use Types Packs/Day Years [...] on filedocumented in this encounter Care Teams American Sign Language Teacher Relationship Specialty Start Date End Date Unknown, Unknown, PCP - General 08/20/17 06/24/23 Sharifa Gamble MD [facility] [address] [address] PCP - General 06/25/23 Wagner Flood MD [address] [place] [address] [facility] [place] [address] [email or web address] Primary Oncologist Medical Oncology 01/31/18 documented as of this encounter Additional Source Comments The information contained in this document represents components of the legal health record. It is not the complete legal health record.[facility]
--- OUTSIDE RECORDS SUMMARY | 2025-02-24 18:06 | XMS_ITS | Encounter Summary ---
Author Organization [facility] Address [address] [place] [address] [place] [address] Phone Care Team Providers Care Heel Seat Fitter Name Role Phone Unknown, Unknown Primary Care Provider Wagner Carter MD Unavailable [phone] Sharifa Gamble MD Primary Care Pro vider Encounter Details Date Type Department Care Team (Late st Contact Info) Description 08/27/2017 Procedure Pass [facility] [address] [place] [address] Social History Tobacco Use Types Packs/Day Years [...] on filedocumented in this encounter Care Teams Heel Seat Fitter Relationship Specialty Start Date End Date Unknown, Unknown, PCP - General 08/20/17 06/24/23 Sharifa Gamble MD [facility] [address] [address] PCP - General 06/25/23 Wagner Flood MD [address] [place] [address] [facility] [place] [address] [email or web address] Primary Oncologist Medical Oncology 01/31/18 documented as of this encounter Additional Source Comments The information contained in this document represents components of the legal health record. It is not the complete legal health record.[facility]
--- OUTSIDE RECORDS SUMMARY | 2025-02-24 18:06 | XMS_ITS | Clinical Summary ---
Author Organization [facility] Address [address] [facility] [address] [place] [address] Phone Care Team Providers Care Gas Furnace Installer Name Role Phone Wagner Flood MD Unavailable [phone] Sharifa Gamble MD Primary Care Pro vider [...] by mouth nightly. Active magnesium-alumi num-simethicone -diphenhydramin g-esrtbhvcx-ydf tatin (ONCOLOGY MOUTHWASH) Mwsh oral/mucosal suspension Swish [...] Payer (Ef fective 2007-Present) Name:Desire Azar Member ID:[id number] Relation to Subscriber:Self Name:Desire Azar Subscriber ID:[id number] Payer ID:[id number] Group ID:Not on file Type:Medicare Address: [employer] [address] ONE CARE MEDICARE REPLACEMENT MEDICARE PART A & B CARE MEDICARE REPLACEMENT MEDICARE PART A & B Member Subscriber Plan / Payer ( fective 2007-Present) Name:Desire Azar Member ID:[id number] Relation to Subscriber:Self Name:Desire Azar Subscriber ID:[id number] Payer ID:[id number] Group ID:Not on file Type:Medicare Address: [facility] [employer] [facility] [address] ONE CARE MEDICARE REPLACEMENT DARYA FLANNERY [id number] MEDICARE PART A & B CARE MEDICARE REPLACEMENT DARYA FLANNERY [address] MEDICARE PART A & B ONE CARE MEDICARE REPLACEMENT MEDICARE PART A & B Member Subscriber Plan / Payer (Ef fective 2007-Present) Name:ColonRosalindate Member ID:[id number] Relation to Subscriber:Self Name:Rosalinda Azarte Subscriber ID:[id number] Payer ID:[id number] Group ID:Not on file Type:Medicare Address: [employer] [address] ONE CARE MEDICARE REPLACEMENT DARYA FLANNERY [address] [address] [place] [address] [place] [address] Care Teams Gas Furnace Installer Relationship Specialty Start Date End Date Sharifa Gamble MD [address] [address] PCP - General 06/25/23 Wagner Flood MD 10 [facility] Thoracic Oncology[address] [address] [email or web address] [email or web address] Primary Oncologist Medical Oncology 01/31/18 Additional Source Comments The information contained in this document represents components of the legal health record. It is not the complete legal health record.[facility]
== END 2025-02-24 14:31 | disposition home or self-care (01) ==
LOC: HO.HPS 13:33
PROVIDERS: PCP Internal Medicine; Visit Provider Internal Medicine Pulmonary Disease
DX: R91.8 Other nonspecific abnormal finding of lung field (principal)
CPT/HCPCS: 99213

== ENCOUNTER → 2025-02-24 13:33 | Outpatient (BNVA) | payer OTHER, SELFPAY | PROVIDERS: PCP Internal Medicine; Visit Provider Internal Medicine Pulmonary Disease | DX: R91.8 Other nonspecific abnormal finding of lung field (principal) | CPT/HCPCS: 99212 ==

== ENCOUNTER → 2025-03-02 15:08 | Outpatient (BNV) | payer OTHER, SELFPAY | PROVIDERS: Visit Provider Radiology Diagnostic Radiology | DX: R91.8 Other nonspecific abnormal finding of lung field (principal) | CPT/HCPCS: 70553 ==

== ENCOUNTER 2025-03-02 15:36 | Outpatient (REF) | payer OTHER, SELFPAY ==
--- NOTE | ~2025-03-02 | MR_ITS ---
EXAMINATION: MR BRAIN WITHOUT THEN WITH IV CONTRAST HISTORY: New right lung mass. Previous cci-dpozx-hezs lung ca TECHNIQUE: Sagittal T1, and axial T1, FLAIR, T2, gradient echo, and diffusion weighted MR images of the brain were obtained. Subsequently, sagittal, axial, and coronal T1-weighted images were obtained after the administration of intravenous gadolinium. 5.5 mL Gadavist was administered. COMPARISON: Correlation is made with an unenhanced head CT dated 12/13/2023. FINDINGS: The pituitary is normal in size. The cerebellar tonsils are normally located. The brain parenchyma is unremarkable, demonstrating normal sheth/white differentiation. No foci of abnormal signal intensity are identified. The ventricular system is normal in size and configuration. There is no mass effect or midline shift. No intra or extra-axial fluid collections are identified. There are no foci of restricted diffusion. There is no abnormal contrast enhancement. Normal vascular flow voids are noted in the basilar and carotid arteries. The visualized paranasal sinuses are clear. MR/MR head/brain wo/w con IMPRESSION: Unremarkable MRI of the brain without and with contrast. Electronically signed by: Wood Diana MD 03/03/2025 07:05 AM [facility] [place]
--- OUTSIDE RECORDS SUMMARY | 2025-03-02 16:46 | XMS_ITS | Clinical Summary ---
Author Organization [facility] Address [address] [facility] [address] [place] [address] Phone Care Team Providers Care Ship Carpenter Name Role Phone Wagner Flood MD Unavailable [phone] Sharifa Gamble MD Primary Care Pro vider [...] by mouth nightly. Active magnesium-alumi num-simethicone -diphenhydramin t-hlphnefnm-gpo tatin (ONCOLOGY MOUTHWASH) Mwsh oral/mucosal suspension Swish [...] Payer (Ef fective 2007-Present) Name:Desire Azar Member ID:[id number] Relation to Subscriber:Self Name:Desire Azar Subscriber ID:[id number] Payer ID:[id number] Group ID:Not on file Type:Medicare Address: [employer] [address] ONE CARE MEDICARE REPLACEMENT MEDICARE PART A & B CARE MEDICARE REPLACEMENT MEDICARE PART A & B Member Subscriber Plan / Payer ( fective 2007-Present) Name:Desire Azar Member ID:[id number] Relation to Subscriber:Self Name:Desire Azar Subscriber ID:[id number] Payer ID:[id number] Group ID:Not on file Type:Medicare Address: [facility] [employer] [facility] [address] ONE CARE MEDICARE REPLACEMENT DARYA FLANNERY [address] MEDICARE PART A & B CARE MEDICARE REPLACEMENT DARYA FLANNERY [address] MEDICARE PART A & B ONE CARE MEDICARE REPLACEMENT MEDICARE PART A & B Member Subscriber Plan / Payer (Ef fective 2007-Present) Name:ColonRosalindate Member ID:[id number] Relation to Subscriber:Self Name:Rosalinda Azarte Subscriber ID:[id number] Payer ID:[id number] Group ID:Not on file Type:Medicare Address: [employer] [address] ONE CARE MEDICARE REPLACEMENT DARYA FLANNERY [id number] [address] [place] [address] [place] [address] Care Teams Ship Carpenter Relationship Specialty Start Date End Date Sharifa Gamble MD [address] [address] PCP - General 06/25/23 Wagner Flood MD 10 [facility] Thoracic Oncology[address] [address] [email or web address] Primary Oncologist Medical Oncology 01/31/18 Additional Source Comments The information contained in this document represents components of the legal health record. It is not the complete legal health record.[facility]
--- OUTSIDE RECORDS SUMMARY | 2025-03-02 16:46 | XMS_ITS | Encounter Summary ---
Author Organization [facility] Address [address] [place] [address] [place] [address] Phone Care Team Providers Care Cane Burner Name Role Phone Unknown, Unknown Primary Care Provider Wagner Carter MD Unavailable [phone] Sharifa Gamble MD Primary Care Pro vider Encounter Details Date Type Department Care Team (Late st Contact Info) Description 08/27/2017 Procedure Pass [facility] [address] [place] [address] Social History Tobacco Use Types Packs/Day Years [...] on filedocumented in this encounter Care Teams Cane Burner Relationship Specialty Start Date End Date Unknown, Unknown, PCP - General 08/20/17 06/24/23 Sharifa Gamble MD [facility] [address] [address] PCP - General 06/25/23 Wagner Flood MD [address] [place] [address] [facility]-[address] [place] [address] [email or web address] Primary Oncologist Medical Oncology 01/31/18 documented as of this encounter Additional Source Comments The information contained in this document represents components of the legal health record. It is not the complete legal health record.[facility]
--- OUTSIDE RECORDS SUMMARY | 2025-03-02 16:46 | XMS_ITS | Encounter Summary ---
Author Organization [facility] Address [address] [place] [address] [place] [address] Phone Care Team Providers Care Cook House Laborer Name Role Phone Unknown, Unknown Primary Care Provider Wagner Carter MD Unavailable [phone] Sharifa Gamble MD Primary Care Pro vider Encounter Details Date Type Department Care Team (Late st Contact Info) Description 08/27/2017 Procedure Pass [facility] [address] [place] [address] Social History Tobacco Use Types Packs/Day Years [...] on filedocumented in this encounter Care Teams Cook House Laborer Relationship Specialty Start Date End Date Unknown, Unknown, PCP - General 08/20/17 06/24/23 Sharifa Gamble MD [facility] [address] [address] PCP - General 06/25/23 Wagner Flood MD [address] [place] [address] [facility]-[address] [place] [address] [email or web address] Primary Oncologist Medical Oncology 01/31/18 documented as of this encounter Additional Source Comments The information contained in this document represents components of the legal health record. It is not the complete legal health record.[facility]
--- OUTSIDE RECORDS SUMMARY | 2025-03-02 16:46 | XMS_ITS | Clinical Summary ---
Author Organization [facility] Address [address] [place] [address] Care Team Providers Care Utilization Review Nurse Name Role Phone Unavailable Primary Care Provider [...] Last Done Comments Breast Cancer Screening 1965 Hepatitis B Vaccines (1 of 3 - 19+ 3-dose series) 1984 Cervical Cancer Screening: P ap Smear 1986 Pneumococcal Vaccine: 50+ Ye ars (1 of 1 - PCV) 05/15/2015 Zoster Vaccines (1 of 2) 05/15/2015 Depression Screening 03/11/2024 COVID-19 Vaccine (1 - 2024-2 6 season) 2024 Influenza Vaccine (#1) 2024 01/19/2016 DTaP,Tdap,and Td Vaccines (2 - Td or Tdap) 03/20/2026 03/20/2016 RSV Immunization Adult Patie nts (1 - [...]
--- OUTSIDE RECORDS SUMMARY | 2025-03-02 16:46 | XMS_ITS | Encounter Summary ---
Author Organization [facility] Address [address] [place] [address] [place] [address] Phone Care Team Providers Care Construction Estimator Name Role Phone Unknown, Unknown Primary Care Provider Wagner Carter MD Unavailable [phone] Sharifa Gamble MD Primary Care Pro vider Encounter Details Date Type Department Care Team (Late st Contact Info) Description 08/27/2017 Procedure Pass [facility] [address] [place] [address] Social History Tobacco Use Types Packs/Day Years [...] on filedocumented in this encounter Care Teams Construction Estimator Relationship Specialty Start Date End Date Unknown, Unknown, PCP - General 08/20/17 06/24/23 Sharifa Gamble MD [facility] [address] [address] PCP - General 06/25/23 Wagner Flood MD [address] [place] [address] [facility]-[address] [place] [address] [email or web address] Primary Oncologist Medical Oncology 01/31/18 documented as of this encounter Additional Source Comments The information contained in this document represents components of the legal health record. It is not the complete legal health record.[facility]
--- OUTSIDE RECORDS SUMMARY | 2025-03-02 16:46 | XMS_ITS | Patient Health Record ---
Author Organization [facility] Address [address] [place] [address] Care Team Providers Care Perl Programmer Name Role Phone LAILA AHUJA Primary Care Provider Wood Russo Unavailable [phone] Allergies No Known Allergies Reason For Referral [...] W/U Status Risk Notes Problem Epigastric pain (68346378) Epigastric pain (R10.13) Active confirmed Problem Abdominal bloating (814549428) Abdominal bloating (R14.0) Active confirmed Problem Diarrhea (23095843) Diarrhea (R19.7) Active confirmed Problem Esophageal stricture (58317604) Esophageal stricture (K22.2) Active confirmed Problem Colitis (47931452) Colitis (K52.9) Active confirmed Problem Oropharyngeal dysphagia (87892251) Oropharyngeal dysphagia (R13.12) Active confirmed Problem Computed tomography result abnormal (622246702) Abnormal CT scan, colon (R93.3) Active confirmed Problem Constipation (38722873) Constipation, unspecified constipation type (K59.00) Active confirmed Problem Stricture of esophagus (09392745) 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) Active confirmed Problem Dysphagia (45013395) Pharyngoesophageal dysphagia (R13.14) Active confirmed Problem Stricture of esophagus (80722047) History of esophageal stricture (Z87.19) Active confirmed Problem Ulcerative colitis (71867456) Ulcerative colitis (K51.90) Active confirmed Problem Diarrhea (82625453) Diarrhea, unspecified type (R19.7) Active confirmed Problem Esophageal dysphagia (96087989) Esophageal dysphagia (R13.10) Active confirmed Problem Benign esophageal stricture (404920047) Benign esophageal stricture (K22.2) Active confirmed Problem Abnormal compute d tomography of esophagus (R93.3) Active confirmed Problem Flatulence, eructation and gas pain (840789910) Gaseous abdominal distention (R14.0) Active confirmed Problem Retained food in stomach (K31.89) Active confirmed Problem Esophageal dysphagia (12683885) Esophageal dysphagia (R13.19) Active confirmed Plan Of [...] Insured Coverage Start Date Coverage End Date [facility] [address] [place] [id number] COLON, BRIJESH Self - patient is the insured Medical (General) History Medical History History ICD Code Tachycardia COPD Denies PR,CVA,Lung disease,renal disease Depression/Anxiety/Panic attacks Mediastinal mass(Adenoarcino ma) [...]
--- OUTSIDE RECORDS SUMMARY | 2025-03-02 16:46 | XMS_ITS | Encounter Summary ---
Author Organization [facility] Address [address] [place] [address] [place] [phone] Phone Care Team Providers Care Electric Range Assembler Name Role Phone Unknown, Unknown Primary Care Provider Wagner Carter MD Unavailable [phone] Sharifa Gamble MD Primary Care Pro vider Encounter Details Date Type Department Care Team (Late st Contact Info) Description 08/27/2017 Procedure Pass [facility] [address] [place] [address] Social History Tobacco Use Types Packs/Day Years [...] on filedocumented in this encounter Care Teams Electric Range Assembler Relationship Specialty Start Date End Date Unknown, Unknown, PCP - General 08/20/17 06/24/23 Sharifa Gamble MD [facility] [address] [id number] PCP - General 06/25/23 Wagner Flood MD [address] [place] [address] [facility] [place] [id number] [email or web address] Primary Oncologist Medical Oncology 01/31/18 documented as of this encounter Additional Source Comments The information contained in this document represents components of the legal health record. It is not the complete legal health record.[facility]
== END 2025-03-02 15:37 | disposition home or self-care (01) ==
LOC: HO.MRI 15:36
PROVIDERS: Visit Provider Internal Medicine Medical Oncology
DX: C34.92 Malignant neoplasm of unspecified part of left bronchus or lung (principal)
CPT/HCPCS: 70553; A9585